=== PATIENT | female | born 1960 | race Caucasian/White ===

== ENCOUNTER 2016-10-10 09:42 | Inpatient (IN) | payer OTHER ==
[~2016-10-10] VITALS: Ht 162.6 cm; Wt 70.3 kg
[2016-10-10] VITALS (32 sets, daily range): BP systolic 71–131; BP diastolic 46–78; PULSE 58–79; RESP 10–22; Ht 162.6 cm; Wt 70.3 kg
[~2016-10-10 09:42] MED LIST: CEFAZOLIN 2 GM/50 ML (PMX) 50 ML IVPB ONE; D5-NS + KCL 20 MEQ 1,000 ML IV SCH; METHYLENE BLUE 1% 10 ML INJ ONE; SEVOFLURANE 15 MIN ONE; THROMBIN 5000 UNIT VIAL ONE; VASOPRESSIN 20 UNITS INJ ONE; metroNIDAZOLE 500 MG/NS (PMX) 100 ML IVPB ONE
[2016-10-10] MEDS ORDERED: ATEN-51 PO (10:17)
[2016-10-10] MEDS ORDERED: HYDR12.58 PO (10:17)
[2016-10-10] MEDS ORDERED: HYDR-906 PO (10:18)
[2016-10-10] MEDS ORDERED: OMEP20CA16 PO (10:18)
[2016-10-10] MEDS ORDERED: ONDANSETRON 4 MG INJ ONE (10:52)
[2016-10-10] MEDS ORDERED: SUCCINYLCHOLINE CHLORIDE 100 MG/5 ML SYG IV ONE (10:52)
[2016-10-10] MEDS ORDERED: FENTAnyl 50 MCG/ML VIAL ONE (10:52)
[2016-10-10] MEDS ORDERED: PROPOFOL 20 ML ONE (10:52)
[2016-10-10] MEDS ORDERED: ROCURONIUM 50 MG INJ ONE (10:52)
[2016-10-10] MEDS ORDERED: METOCLOPRAMIDE 10 MG INJ ONE (10:53)
[2016-10-10] MEDS ORDERED: MIDAZOLAM 1 MG/ML 2 ML INJ ONE (10:55)
[2016-10-10] MEDS ORDERED: LIDOCAINE 2%/EPI 30 ML INJ ONE (10:55)
[2016-10-10] MEDS ORDERED: CEFAZOLIN 1 GM INJ ONE (11:03)
[2016-10-10] MEDS ORDERED: morphine SULFATE/PF (10 MG/10 ML) INJ ONE (11:37)
[2016-10-10] MEDS ORDERED: MEPERIDINE 25 MG INJ IV PRN (13:00)
[2016-10-10] MEDS ORDERED: FENTAnyl 50 MCG/ML VIAL IV PRN ×2 (13:00)
[2016-10-10] MEDS ORDERED: HYDROmorphONE (0.2 MG/ML) 10ML SYG IV PRN ×2 (13:00)
[2016-10-10] MEDS ORDERED: ONDANSETRON 4 MG INJ IV PRN ×2 (13:00→15:30)
[2016-10-10] MEDS ORDERED: NALOXONE (0.4 MG/ML) INJ IV PRN (15:30)
[2016-10-10] MEDS ORDERED: DIPHENHYDRAMINE 50 MG INJ IV PRN (15:30)
[2016-10-10] MEDS ORDERED: HYDROmorphONE 1 MG/ML SYG IV PRN ×2 (15:30)
[2016-10-10] MEDS ORDERED: ATROPINE 1 MG/10 ML SYRINGE ONE (15:44)
[2016-10-10] MEDS ORDERED: NEOSTIGMINE 3 MG/3 ML SYRINGE ONE (15:44)
[2016-10-10] MEDS ORDERED: EPHEDrine SULFATE 50 MG/5 ML SYG ONE (16:15)
[2016-10-10] MEDS ORDERED: KETOROLAC 15 MG INJ IV STA (16:31)
[2016-10-10] MEDS ORDERED: KETOROLAC 15 MG INJ ONE (16:35)
[2016-10-10] MEDS: HYDROmorphONE (0.2 MG/ML) 10ML SYG IV PRN ×2 (16:46→17:18)
[2016-10-10] MEDS: D5-LR + KCL 20 MEQ 1,000 ML IV SCH ×2 (17:39→23:24)
[2016-10-10] MEDS: Metronidazole 500 MG in NS 100 ML IVPB SCH (17:39)
[2016-10-10 17:58] LABS: ADD SCAN DIFF NO
[2016-10-10 18:00] LABS: ABNORMAL IP MESSAGE 1; HEMOGLOBIN 9.3 g/dl (12.0-16.0); MEAN CORPUSCULAR HEMOGLOBIN 28.5 pg (29.0-33.0); MEAN PLATELET VOLUME 9.3 fl (7.4-10.4); PLATELET COUNT 338 10^3/UL (140-415); RED BLOOD COUNT 3.26 10^6/ul (4.20-5.40); WHITE BLOOD COUNT 12.3 10^3/ul (4.8-10.8)
[2016-10-10 18:12] LABS: INR 1.26; PROTIME 15.9 Sec (12.2-14.2); PT RATIO 1.2
[2016-10-10] MEDS: CEFAZOLIN 1 GM/50 ML (PMX) 50 ML IVPB SCH (18:12)
[2016-10-10 18:13] LABS: PARTIAL THROMBOPLASTIN TIME 27.9 Sec (25.0-35.0)
[2016-10-10 18:28] LABS: CREATININE 0.62 mg/dl (0.44-1.00); POTASSIUM 3.3 mmol/L (3.5-5.1)
[2016-10-10 18:29] LABS: CALCIUM 6.8 mg/dl (8.4-10.2)
[2016-10-10 20:09] LABS: LYMPHOCYTES # 0.6 10^3/ul (0.8-2.9); MONOCYTE # 0.7 10^3/ul (0.3-0.9); NEUTROPHIL # 9.8 10^3/ul (1.6-7.5)
[2016-10-10 20:10] LABS: ANISOCYTOSIS OCCASIONAL; PLATELET ESTIMATE PLT APPEAR ADEQUATE
--- NOTE | 2016-10-10 21:33 | HP ---
DATE OF ADMISSION: 10/10/2016 CHIEF COMPLAINT AND HISTORY OF PRESENT ILLNESS: The patient is a 56-year-old female with recent pro gnosis of endometrial cancer on 09/17/2016 by endometrial biopsy. The patient was diagnosed with st age IV endometrial cancer as an outpatient and underwent low rectal anastomosis, total hysterectomy, bilateral ____. Details of operative notes are currently not available. The patient postoperative ly did have a drop in her blood pressure which responded to IV fluid. Last blood pressure is 96. T he patient denies any dizziness or chest pain and is breathing comfortably. There is no orthopnea. The patient does not have any cough or chest congestion. The patient is being admitted for further care. REVIEW OF SYSTEMS: Rather limited due to patient's immediate postop state. PAST SURGICAL HISTORY: The patient is status post cholecystectomy and also history of biopsy of lef t breast, details not available. PAST MEDICAL HISTORY: Also positive for gastritis. FAMILY HISTORY: Mother has hypertension, dyslipidemia and diabetes. Father due to heart d isease, details not available, and father also had CVA. SOCIAL HISTORY: No smoking, no alcohol. MEDICATIONS PRIOR TO ADMISSION: 1. Atenolol. 2. Omeprazole. 3. Hydrochlorothiazide. 4. Lipitor. ALLERGIES: NONE. PHYSICAL EXAMINATION: GENERAL: The patient is conscious, awake, alert. VITAL SIGNS: Systolic blood pressure 96, temperature 98.6, pulse 62, respirations 18, O2 saturation 99%. HEENT: No eye discharge, redness. Extraocular movement intact. Oropharynx clear. NECK: Supple. No mass, no lymph node, no thyromegaly. CHEST: Fairly clear. CARDIOVASCULAR: S1, S2 normal. No murmur. ABDOMEN: The patient is status post surgery. Abdominal examination was deferred. EXTREMITIES: No leg edema. Pedal pulses palpable. SKIN: Without acute rash. NEUROLOGIC: The patient is awake, alert and follows simple commands. LABORATORY DATA: WBC 12.3, hemoglobin 9.3, platelets 338. Sodium 137, potassium 3.3, BUN 9, creati nine 0.6, glucose 155, calcium 6.8. EKG done as an outpatient revealed normal sinus rhythm. Labs done as an outpatient revealed WBC 10.4, hemoglobin 13.2, platelets 334. Calcium as an outpati ent was 9.4, albumin 4.4. CA-125 was interestingly 125. IMPRESSION AND PLAN: 1. Stage IV endometrial cancer, status post surgery. Details of operative notes are pending. 2. Hypertension. Will hold off antihypertensive for now since the patient's blood pressure is yang inal. 3. Dyslipidemia. The patient is n.p.o. Will hold off on statins. 4. Gastritis. Will give IV Protonix instead of Prilosec, which she had been taking prior to admiss ion. The patient's labs will be monitored closely. The patient is getting potassium replacement intraven ously. Plan of care discussed with the recovery room nurse. Dictated By: ARLENE PINTO/NTS Conf#: [id number] DID#: [id number]
[2016-10-10] MEDS: HYDROmorphONE 1 MG/ML SYG IV PRN (21:43)
[2016-10-11] VITALS (17 sets, daily range): BP systolic 91–117; BP diastolic 55–67; PULSE 60–96; RESP 11–21
[2016-10-11] MEDS: Metronidazole 500 MG in NS 100 ML IVPB SCH ×3 (01:00→17:31)
[2016-10-11] MEDS: CEFAZOLIN 1 GM/50 ML (PMX) 50 ML IVPB SCH ×3 (02:00→17:31)
[2016-10-11 05:58] LABS: ADD SCAN DIFF NO
[2016-10-11 06:01] LABS: ABNORMAL IP MESSAGE 1; HEMATOCRIT 28.7 % (37.0-47.0); HEMOGLOBIN 8.6 g/dl (12.0-16.0); MEAN CORPUSCULAR HEMOGLOBIN 28.2 pg (29.0-33.0); MEAN CORPUSCULAR VOLUME 94.1 fl (82.0-101.0); MEAN PLATELET VOLUME 9.4 fl (7.4-10.4); PLATELET COUNT 326 10^3/UL (140-415); RED BLOOD COUNT 3.05 10^6/ul (4.20-5.40); RED CELL DISTRIBUTION WIDTH 12.3 % (11.5-14.5); WHITE BLOOD COUNT 12.6 10^3/ul (4.8-10.8)
[2016-10-11] MEDS: HYDROmorphONE 1 MG/ML SYG IV PRN ×2 (06:03→23:24)
[2016-10-11] MEDS: PANTOPRAZOLE 40 MG INJ IV SCH (06:03)
[2016-10-11 06:07] LABS: INR 1.18; PROTIME 15.1 Sec (12.2-14.2); PT RATIO 1.2
[2016-10-11 06:08] LABS: PARTIAL THROMBOPLASTIN TIME 30.9 Sec (25.0-35.0)
[2016-10-11 06:16] LABS: ALBUMIN 2.1 g/dl (3.3-4.9); ALBUMIN/GLOBULIN RATIO 0.95; CREATININE 0.64 mg/dl (0.44-1.00); TOTAL PROTEIN 4.3 g/dl (6.1-8.1)
[2016-10-11] MEDS: D5-LR + KCL 20 MEQ 1,000 ML IV SCH ×3 (06:37→19:14)
[2016-10-11 07:08] LABS: POTASSIUM 4.4 mmol/L (3.5-5.1)
[2016-10-11] MEDS ORDERED: DIMETHICONE STICK TOP PRN (09:30)
[2016-10-11 09:55] LABS: LYMPHOCYTES # 0.9 10^3/ul (0.8-2.9); MONOCYTE # 0.3 10^3/ul (0.3-0.9); NEUTROPHIL # 10.7 10^3/ul (1.6-7.5)
--- NOTE | 2016-10-11 11:12 | PN ---
Date/Time of Note Date/Time of Note DATE: 10/11/16 TIME: 11:07 Assessment/Plan VTE Prophylaxis VTE Prophylaxis Intervention: other Lines/Catheters IV Catheter Type (from [facility], [place]): Peripheral IV Urinary Cath still in place: Yes Reason Cath still needed: urinary retention Assessment/Plan Assessment/Plan 1. Stage IV endometrial cancer, status post surgery. 2. Hypertension. Will hold off antihypertensive for now since the patient's blood pressure is marginal. 3. Dyslipidemia. The patient is n.p.o. Will hold off on statins. 4. Gastritis. Will give IV Protonix instead of Prilosec, which she had been taking prior to admission. The patient's labs will be monitored closely. The patient is getting potassium replacement intravenously. Plan of care discussed with the recovery room nurse. Subjective 24 Hr Interval Summary Free Text/Dictation resting in bed, nad, afebrile, dw staff/ Constitutional: improved, requiring IVF Eyes: no complaints ENT: no complaints Respiratory: no complaints Cardiovascular: no complaints Gastrointestinal: pain (incsional site) Genitourinary: no complaints Musculoskeletal: no complaints Skin: no complaints Neurologic: no complaints Exam/Review of Systems Vital Signs Vitals Vital Signs Date Time Temp Pulse Resp B/P Pulse Ox O2 Delivery O2 Flow Rate FiO2 10/11/16 11:00 78 20 104/63 100 Nasal Cannula 2.0 10/11/16 08:00 98.3 Intake and Output 10/10/16 10/10/16 10/11/16 15:00 23:00 07:00 Intake Total 4000 ml 1200 ml Output Total 1780 ml 820 ml Balance 2220 ml 380 ml Exam Constitutional: alert, oriented, well developed Psych: nl mood/affect Head: atraumatic Eyes: EOMI, PERRL, nl sclera ENMT: nl external ears & nose Neck: non-tender Respiratory: clear to auscultation Cardiovascular: nl pulses Gastrointestinal: other (Mid abdomen dressing- old blood staoned noted- none new. Bandages x2 noted on RLA /LLA- all dressings are dry and intact.), soft, tender Musculoskeletal: nl extremities to inspection Extremities: normal pulses Neurological: nl mental status, nl speech Skin: other Results Result Diagram: 10/11/16 0528 10/11/16 0528 Results 24 hrs Laboratory Tests Test 10/10/16 17:50 10/11/16 05:28 White Blood Count 12.3 H 12.6 H Red Blood Count 3.26 L 3.05 L Hemoglobin 9.3 L 8.6 L Hematocrit 30.0 L 28.7 L Mean Corpuscular Volume 92.0 94.1 Mean Corpuscular Hemoglobin 28.5 L 28.2 L Mean Corpuscular Hemoglobin Concent 31.0 L 30.0 L Red Cell Distribution Width 12.0 12.3 Platelet Count 338 326 Mean Platelet Volume 9.3 9.4 Neutrophils % 80.0 H 85.0 H Band Neutrophils % 9.0 H 6.0 H Lymphocytes % 5.0 L 7.0 L Monocytes % 6.0 2.0 Neutrophils # 9.8 H 10.7 H Lymphocytes # 0.6 L 0.9 Monocytes # 0.7 0.3 Platelet Estimate PLT APPEAR ADEQUATE Anisocytosis OCCASIONAL Prothrombin Time 15.9 H 15.1 H Prothrombin Time Ratio 1.2 1.2 INR International Normalized Ratio 1.26 1.18 Activated Partial Thromboplast Time 27.9 30.9 Sodium Level 137 139 Potassium Level 3.3 L 4.4 Chloride Level 110 109 Carbon Dioxide Level 24 27 Anion Gap 6 L 7 L Blood Urea Nitrogen 9 7 Creatinine 0.62 0.64 Glucose Level 155 214 Calcium Level 6.8 L 7.0 L Eosinophils % Eosinophils # Total Bilirubin 0.0 L Direct Bilirubin 0.00 Indirect Bilirubin 0.0 Aspartate Amino Transf (AST/SGOT) 28 Alanine Aminotransferase (ALT/SGPT) 28 Alkaline Phosphatase 49 Total Protein 4.3 L Albumin 2.1 L Globulin 2.20 Albumin/Globulin Ratio 0.95 Medications Medications Current Medications Potassium Cl/ Dextrose/Lact Ringer's (D5-Lr + KCl 20 Meq) 1,000 ml @ 150 mls/ hr Q6H40M IV Last administered on 10/11/16 06:37; Admin Dose 150 MLS/HR; Start 10/10/16 at 17:00 Hydromorphone HCl 1 mg 1 mg Q1H PRN IV PAIN Last administered on 10/11/16 06: 03; Admin Dose 1 MG; Start 10/10/16 at 17:00 Metronidazole 100 ml @ 100 mls/hr Q8H IVPB Last administered on 10/11/16 09: 24; Admin Dose 100 MLS/HR; Start 4/12/17 at 17:00; Stop 10/12/16 at 09:59 Cefazolin Sodium (Ancef 1 Gm/50 ml (Pmx)) 50 ml @ 100 mls/hr Q8H IVPB Last administered on 10/11/16 10:45; Admin Dose 100 MLS/HR; Start 10/10/16 at 18:00 ; Stop 10/12/16 at 10:29 Pantoprazole (Protonix Iv) 40 mg DAILY@06 IV Last administered on 10/11/16 06: 03; Admin Dose 40 MG; Start 10/11/16 at 06:00 Dimethicone (Blistex Lip [place]) 1 applic Q2H PRN TOP CHAPPED LIPS; Start at 09:30 LATRICIA GABRIEL Oct 11, 2016 11:12
--- NOTE | 2016-10-11 11:19 | PN ---
Date/Time of Note Date/Time of Note DATE: 10/11/16 TIME: 11:14 Assessment/Plan VTE Prophylaxis VTE Prophylaxis Intervention: SCD's Lines/Catheters IV Catheter Type (from [facility]): Peripheral IV Urinary Cath still in place: Yes Assessment/Plan Chief Complaint/Hosp Course stage IV endometrial cancer Problems: Assessment/Plan A- doing well P- explained surgery and findings Transfer to 4W OK with me if OK with IM Transfusion essential due to high risk low anastomosis Subjective 24 Hr Interval Summary Free Text/Dictation S- comfortable. not OOB O- resp- clear cvs-nsr abd- clean, NT ext- nt no edema A- doing well P- explained surgery and findings Transfer to 4W OK with me if OK with IM Transfusion essential due to high risk low anastomosis Exam/Review of Systems Vital Signs Vitals Vital Signs Date Time Temp Pulse Resp B/P Pulse Ox O2 Delivery O2 Flow Rate FiO2 10/11/16 11:00 78 20 104/63 100 Nasal Cannula 2.0 10/11/16 08:00 98.3 Intake and Output 10/10/16 10/10/16 10/11/16 15:00 23:00 07:00 Intake Total 4000 ml 1200 ml Output Total 1780 ml 820 ml Balance 2220 ml 380 ml Results Result Diagram: 10/11/16 0528 10/11/16 0528 Results 24 hrs Laboratory Tests Test 10/10/16 17:50 10/11/16 05:28 White Blood Count 12.3 H 12.6 H Red Blood Count 3.26 L 3.05 L Hemoglobin 9.3 L 8.6 L Hematocrit 30.0 L 28.7 L Mean Corpuscular Volume 92.0 94.1 Mean Corpuscular Hemoglobin 28.5 L 28.2 L Mean Corpuscular Hemoglobin Concent 31.0 L 30.0 L Red Cell Distribution Width 12.0 12.3 Platelet Count 338 326 Mean Platelet Volume 9.3 9.4 Neutrophils % 80.0 H 85.0 H Band Neutrophils % 9.0 H 6.0 H Lymphocytes % 5.0 L 7.0 L Monocytes % 6.0 2.0 Neutrophils # 9.8 H 10.7 H Lymphocytes # 0.6 L 0.9 Monocytes # 0.7 0.3 Platelet Estimate PLT APPEAR ADEQUATE Anisocytosis OCCASIONAL Prothrombin Time 15.9 H 15.1 H Prothrombin Time Ratio 1.2 1.2 INR International Normalized Ratio 1.26 1.18 Activated Partial Thromboplast Time 27.9 30.9 Sodium Level 137 139 Potassium Level 3.3 L 4.4 Chloride Level 110 109 Carbon Dioxide Level 24 27 Anion Gap 6 L 7 L Blood Urea Nitrogen 9 7 Creatinine 0.62 0.64 Glucose Level 155 214 Calcium Level 6.8 L 7.0 L Eosinophils % Eosinophils # Total Bilirubin 0.0 L Direct Bilirubin 0.00 Indirect Bilirubin 0.0 Aspartate Amino Transf (AST/SGOT) 28 Alanine Aminotransferase (ALT/SGPT) 28 Alkaline Phosphatase 49 Total Protein 4.3 L Albumin 2.1 L Globulin 2.20 Albumin/Globulin Ratio 0.95 Medications Medications Current Medications Potassium Cl/ Dextrose/Lact Ringer's (D5-Lr + KCl 20 Meq) 1,000 ml @ 150 mls/ hr Q6H40M IV Last administered on 10/11/16 06:37; Admin Dose 150 MLS/HR; Start 10/10/16 at 17:00 Hydromorphone HCl 1 mg 1 mg Q1H PRN IV PAIN Last administered on 10/11/16 06: 03; Admin Dose 1 MG; Start 10/10/16 at 17:00 Metronidazole 100 ml @ 100 mls/hr Q8H IVPB Last administered on 10/11/16 09: 24; Admin Dose 100 MLS/HR; Start 10/10/16 at 17:00; Stop 10/12/16 at 09:59 Cefazolin Sodium (Ancef 1 Gm/50 ml (Pmx)) 50 ml @ 100 mls/hr Q8H IVPB Last administered on 10/11/16 10:45; Admin Dose 100 MLS/HR; Start 10/10/16 at 18:00 ; Stop 10/12/16 at 10:29 Pantoprazole (Protonix Iv) 40 mg DAILY@06 IV Last administered on 10/11/16 06: 03; Admin Dose 40 MG; Start 10/11/16 at 06:00 Dimethicone (Blistex Lip [place]) 1 applic Q2H PRN TOP CHAPPED LIPS; Start at 09:30 NUPUR RODRÍGUEZ MD Oct 11, 2016 11:19
[2016-10-11] MEDS ORDERED: ACETAMINOPHEN 650MG/20.3ML CUP NGT ONE (13:30)
[2016-10-11] MEDS ORDERED: DIPHENHYDRAMINE 50 MG INJ IV ONE (13:30)
[2016-10-11] MEDS ORDERED: FUROSEMIDE 20 MG INJ IV ONE (13:30)
[2016-10-11 17:00] LABS: ADD UMIC YES; URINE COLOR LT. YELLOW (YELLOW)
[2016-10-11 17:01] LABS: URINE BILIRUBIN (Dip) NEGATIVE (NEGATIVE); URINE BLOOD (Dip) TRACE (NEGATIVE); URINE GLUCOSE (Dip) NEGATIVE (NEGATIVE); URINE KETONES (Dip) NEGATIVE (NEGATIVE); URINE LEUKOCYTE ESTERASE (Dip) TRACE (NEGATIVE); URINE NITRITE (Dip) NEGATIVE (NEGATIVE); URINE TOTAL PROTEIN (Dip) NEGATIVE (NEGATIVE); URINE UROBILINOGEN (Dip) 0.2 E.U./dL (0.1-1.0)
[2016-10-11 17:05] LABS: MUCUS,URINE OCCASIONAL; URINE RBCS 0-2 /HPF (0)
--- NOTE | 2016-10-11 20:49 | OPR ---
Date/Time of Note Date/Time of Note DATE: 10/11/16 TIME: 20:48 Operative Report Free Text/Dictation OPERATIVE REPORT [facility] Name: Nicole Gan Medical Date: 10/10/16 Preoperative Diagnosis: Endometrial cancer grade 3 Postoperative Diagnosis: 1- Stage IV endometrial cancer 2- Ureteral stricture 3- Impending gastric outlet obstruction 4- Impending large bowel obstruction Procedures: 1- Modified posterior exenteration with low anastomosis 2- Pelvic and aortic lymph node dissection 3- Bilateral ureteral dissection with repositioning 4- Omentectomy with cytoreduction 5- Vascular repaired without incident using 6- Laparoscopy Surgeon: Dr. Bueno Route Manager: Sveta Anesthesia: General Indications for surgery: The patient is a 56- year old female with endometrial cancer for whom a laparoscopic procedure was initially intended but the imaging studies received indicated multi-site possible metastatic disease. Hence a laparoscopy was performed to confirm the extent of metastatic disease and primary advanced stage endometrial cancer on the basis of physical findings with elevated markers , radiographic findings, and symptoms of whom a cytoreduction was undertaken Name: Nicole Jackson after addressing all options with risks and benefits. Findings and Summary After laparoscopy and confirmation of extensive metastatic disease that was operable the patient was opened and with exploration we removed 400 cc ascites and noted upper abdominal disease involving the omentum, diaphragm, and bowel with metastatic implants which were addressed and the pelvic disease was resected en-bloc. The retroperitoneal nodes were grossly enlarged and friable. At the completion of the procedure the patient was cytoreduced to a 5 mm threshold due to confluent vascular disease and duodenal disease. Procedure: After being prepped and draped in the usual manner a 5-millimeter trocar was placed cephlad to the umbilicus and the abdomen insufflated with CO2, after which the abdomen was explored and omental metastatic disease was noted with minimal diaphragm nodules. Hence, a midline skin incision was made of appropriate length. The electrocautery was then used to dissect thru the adipose tissue to the level of the fascia. The fascia was incised sharply and the peritoneum identified. At this time the peritoneum was elevated and incised with a Metzenbaum scissors. Upon entering the peritoneal cavity 300 cc of ascetic fluid was removed. We then searched the abdominal and pelvic contents and found that the left upper quadrant metastatic disease involved the greater omentum with confluent disease involving part of the the gastrocolic ligament. (rank 2). The right upper quadrant diseases involved approximately 1 % % of the diaphragm surface and did not involve the undersuface (rank #1). Exploration of the central abdomen revealed approximately minimal implants involving the mesentery, intestinal, and gutter regions with dimensions of 1 mm to 2 mm (rank # 1 ). The pelvic disease consisted of involvement of both adnexia with the cul-de-sac involved with confluent metastatic disease and a separate colon site of adjacent metastatic disease (rank 2). The largest metastatic disease was 6 cm in dimension and involved the omentum adjacent Name: [facility] to the transverse colon. We then placed an aortic Bellfower retractor. At this time, the omentum was dissected from the transverse colon with sharp dissection and electrocautery when possible. Vessels to large to be managed by electrocautery or too close to the colon were addressed with the Ligasure or sutured with 3-0 silk suture if needed. This procedure was carried out throughout the length of the omentum and transverse colon. Larger vascular pedicles were divided using the Ligasure if the pedicle was vascular but somewhat skeletonized. Oozing areas in the cautery line with either devise were either recauterized or sutured with 3-0 silk. We then entered the lesser sac bluntly and the gastro-colic ligament from the greater curvature of the stomach with electrocautery and 3-0 silk suture used as needed. Any small disease in the lesser sac was ablated with an argon beam gas collection system operator. The Thunderbeat forceps was used for small pedicles and Ligasure for larger pedicles as the gastrocolic ligament was from the stomach. Oozing areas in any cautery lines were either cauterized or sutured with 3-0 silk depending on the proximity to adjacent gastric serosa. The specimen was removed en-bloc, after which the transverse colon was thoroughly inspected and any sero- muscular defects encountered were repaired with interrupted 3-0 Silk suture. Subsequently the aforementioned implants on the diaphragm and the adjacent perirenal area were ablated with the argon beam gas collection system operator. At this time, the entire small and large bowel was thoroughly inspected and palpated. There were approximately 12 implants on the mesentery and serosal surfaces of the small intestine and colon, excluding cul-de-sac disease. The size of the implants ranged from 1 to 2 millimeters other than the confluent disease in the cul-de- sac and a solitary 4-5 cm sigmoid colon site of metastatic disease. All mesenteric implants were ablated with an argon beam gas collection system operator using a setting of 150 pascal. Serosal implants were excised sharply and any defects were closed with multiple sutures of 3-0 silk. All implants were ablated or excised. At this time, the pelvic disease was addressed. Because of the extensive disease involving the Name: Nicole Gan [facility] cul-de-sac as well as the sidewall pelvic peritoneum and rectosigmoid colon and adnexial involvement with the adnexia densely adherent to the sidewalls, an en- bloc modified posterior pelvic exenteration was needed to resect the disease. Initially the right round ligament was transected with a Ligasure uneventfully. The retroperitoneal area was opened and the ureter was identified. Due to the extent of pelvic disease with inflammation and reaction as well as tumor bulk centrally, the ureter was difficult to initially identify and were strictured distally with some element of ureteral distortion and distal stricture. Therefore it was essential to thoroughly dissect and reposition the ureter as separate procedure. This was accomplished with a right angle clamp and a peanut throughout the length of the ureter. The ureter was dissected throughout the length and lateralized with a peanut for visualization and exposure. After repositioning the ureter laterally away from the adherent peritoneum that was densely involved with metastatic disease, the infundibulopelvic ligament were first cauterized with the Ligasure and then clamped, cut and free-tied with 0- Vicryl suture proximally. Subsequently, on the contralateral side, where the more extensive confluent lesion was and as we now had better exposure, left round ligament was transected with a Ligasure uneventfully. The retroperitoneal area was opened and the ureter was identified. Due to the extent of pelvic disease with inflammation and reaction as well as tumor bulk centrally and due to the adjacent process, the ureter was difficult to initially identify and were strictured distally with some element of ureteral distortion with stricture. Therefore it was essential to thoroughly dissect and reposition the ureter as separate procedure. This was accomplished with a right angle clamp and a peanut throughout the length of the ureter. The ureter was dissected throughout the length and lateralized with a peanut for visualization and exposure. After repositioning the ureter laterally away from the adherent peritoneum that was densely involved with metastatic disease, the infundibulopelvic ligament were first cauterized with the Ligasure and then clamped, cut and free-tied with 0- Vicryl suture proximally. Name: Nicole Jackson Subsequently, the colon, proximal to the aforementioned macroscopic disease was dissected away from the mesentery with a tonsil clamp and transected with the 75 -mm PARVEEN. The presacral area was then developed digitally and the specimen mobilized. With both ureters identified and traced out the colonic mesentery was divided using a Ligasure progressively. Any bleeding areas were addressed with 3-0 silk suture. The bladder flap was then developed with a Bovie and any implants on the anterior bladder peritoneum were ablated with an ABC gas collection system operator. At this time a large right angle clamp was used to dissect the ureters bilaterally, away from the uterine vessels in a manner used during a type-2 hysterectomy. The uterine arteries were clipped and cut, along with the veins. The ureters were then tunneled through the parametria with a large right angle clamp, and the parametrial pedicles were transected with a Ligasure. The bladder pillars were then dissected after which the ureters were confirmed to be undamaged. Hence, remaining parametrial tissue was clamped, cut , and ligated with 0- Vicryl suture and the vaginal angles were clamped with Lidia clamps. The uterus was from the vagina and the vagina closed with figure of eight sutures using 0-vicryl. Subsequently, the recto- vaginal septum was developed digitally and the perirectal tissue was dissected from the distal colon and proximal rectum. Pedicles were addressed with the endo-PARVEEN if adjacent to serosa or if remote and presacral the Ligasure was used , while smaller ones were clipped and cut. The rectum was stapled with a Contour and the reproductive organs, pelvic peritoneum, and segment of recto- sigmoid removed en-bloc. After confirming hemostasis we addressed the lymph node dissection since we had excellent exposure. Initially grossly enlarged and friable lymph node tissue adjacent to the right external iliac artery and vein, hypogastric artery and vein, as well as obturator fossa were removed with sharp and blunt dissection, using the Omni for hemostasis and lymphostasis and of note grossly positive sonny disease adjacent to the vasculature was noted and removed. The dissection was continued to include sonny tissue adjacent to the common iliac [facility] vessels. The retractors were adjusted and grossly positive sonny tissue adjacent to the vena cava to a level near the renal vessels, as well as aorto- caval nodes were removed using identical technique. 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 Additionally, confluent metastatic disease was note along the vasculature that was ablated with the argon beam gas collection system operator at low wattage and the disease continued to the duodenum that had minimal sero-muscular invasion that was very minimally ablated with the argon beam gas collection system operator but minimal confluent disease could not be addressed to avoid risk of duodenal issue. At this time we adjusted the retractors and grossly positive and necrotic lymph node tissue adjacent to the left external iliac artery and vein, hypogastric artery and vein, as well as obturator fossa were removed with sharp and blunt dissection, using the Gyrus Omni for hemostasis and lymphostasis. The dissection was continued to include sonny tissue adjacent to the common iliac vessels. Subsequently, the retractors were adjusted and any equivalent grossly positive sonny tissue adjacent to the aorta to a level of the renal vessels were dissected using sharp and blunt dissection with the Omni for hemostasis and lymphostasis with obviously grossly positive nodes removed and fine confluent disease ablated with the argon beam gas collection system operator at low wattage. After confirming hemostasis the proximal large bowel was mobilized and a purse string maker placed. After using the devise the detachable part of an EEA (29 mm) devise was sutured in place, the rectal segment inserted appropriately, and the anastamosis completed uneventfully. The integrity was confirmed by inserting air in the rectum and noting an absence of leakage, after which the anastamosis was supported with Interrupted 3-0 silk suture. At this time, after all packing was removed, the abdomen thoroughly irrigated, hemostasis confirmed, and a Pelvic Tod drain was placed. A figure of eight suture was placed at the caudal apex of the incision with 1- Vicryl suture and used for exposure by elevating with a Pean clamp. Continuous 1 Vicryl suture was used from the rostral apex and run to the Name: [facility] supra-pubic area. The final suture was tied appropriately, after which the figure of eight was tied. The subcutaneous tissue was irrigated and the skin was closed with a deep layer of 3-0 Vicryl suture and skin clips. The sponge, needle, and instrument were correct two times. The estimated blood loss was 600 ml The patient tolerated the procedure well and left the OR in good condition. It should be noted that all visible disease was resected or ablated, but residual disease of <5 mm was left due to generalized confluent disease on vasculature throughout the retroperitoneum and on the duodenum that could not be entirely addressed Nupur Bueno M.D. NUPUR BUENO MD Oct 11, 2016 20:49
[2016-10-11 22:30] LABS: PRETRANSFUSION BILIRUBIN 0.2 mg/dl
[2016-10-12] MEDS: Metronidazole 500 MG in NS 100 ML IVPB SCH ×2 (00:18→08:48)
[2016-10-12] MEDS: CEFAZOLIN 1 GM/50 ML (PMX) 50 ML IVPB SCH ×2 (01:26→10:35)
[2016-10-12] MEDS: HYDROmorphONE 1 MG/ML SYG IV PRN ×4 (04:08→17:30)
[2016-10-12] MEDS: PANTOPRAZOLE 40 MG INJ IV SCH (05:23)
[2016-10-12 07:57] VITALS: BP 126/73; RESP 18
[2016-10-12] MEDS: D5-LR + KCL 20 MEQ 1,000 ML IV SCH ×3 (08:03→21:41)
[2016-10-12 08:20] LABS: ADD SCAN DIFF NO
[2016-10-12 08:34] LABS: BASOPHILS % 0.1 % (0.0-2.0); HEMATOCRIT 24.7 % (37.0-47.0); HEMOGLOBIN 7.7 g/dl (12.0-16.0); LYMPHOCYTES # 0.9 10^3/ul (0.8-2.9); LYMPHOCYTES % 7.5 % (15.0-51.0); MEAN CORPUSCULAR HEMOGLOBIN 28.6 pg (29.0-33.0); MEAN CORPUSCULAR HGB CONC 31.2 g/dl (32.0-37.0); MEAN CORPUSCULAR VOLUME 91.8 fl (82.0-101.0); MEAN PLATELET VOLUME 9.4 fl (7.4-10.4); MONOCYTE # 0.9 10^3/ul (0.3-0.9); MONOCYTES % 7.3 % (0.0-11.0); NEUTROPHIL # 9.8 10^3/ul (1.6-7.5); NEUTROPHILS % 84.8 % (39.0-77.0); PLATELET COUNT 295 10^3/UL (140-415); RED BLOOD COUNT 2.69 10^6/ul (4.20-5.40); RED CELL DISTRIBUTION WIDTH 12.5 % (11.5-14.5); WHITE BLOOD COUNT 11.6 10^3/ul (4.8-10.8)
[2016-10-12 08:45] LABS: POTASSIUM 3.2 mmol/L (3.5-5.1)
[2016-10-12 08:48] LABS: CALCIUM 7.4 mg/dl (8.4-10.2); CREATININE 0.62 mg/dl (0.44-1.00)
[2016-10-12 16:00] VITALS: BP 118/66; PULSE 98; RESP 18
[2016-10-12] MEDS ORDERED: POTASSIUM CHLORIDE 20 MEQ in SOD CHLORIDE 0.9% 100 ML IVPB ONE (17:00)
--- NOTE | 2016-10-12 19:08 | CONS ---
Date/Time of Note Date/Time of Note DATE: 10/12/16 TIME: 19:05 Assessment/Plan Assessment/Plan Chief Complaint/Hosp Course The patient is a 56-year-old female with recent diagnosis of endometrial cancer on 09/17/2016 by endometrial biopsy. The patient was diagnosed with stage IV endometrial cancer. She underwent massive surgical procedure with CYNDI/ BSO and recto-sigmoid en-bloc with low anastomosis per Dr. Bueno on 10/11/16. She had extensive positive retroperitoneal lymph nodes removed but the confluence of disease makes her classified as millimeter residual disease. - Per Dr. Bueno, plan for carbo/taxol in about 8 days. - Continue post-op care. Will continue to follow. Problems: Consultation Date/Type/Reason Admit Date/Time Oct 10, 2016 at 09:46 Date of Consultation: Oct 12, 2016 Type of Consultation: Oncology Hx of Present Illness The patient is a 56-year-old female with recent diagnosis of endometrial cancer on 09/17/2016 by endometrial biopsy. The patient was diagnosed with stage IV endometrial cancer. She underwent massive surgical procedure with CYNDI/BSO and recto-sigmoid en-bloc with low anastomosis per Dr. Bueno. She had extensive positive retroperitoneal lymph nodes removed but the confluence of disease makes her classified as millimeter residual disease. Patient doing well post-operatively. She does not have any complaints. Eyes: no complaints ENT: no complaints Respiratory: no complaints Cardiovascular: no complaints Gastrointestinal: pain (incsional site) Genitourinary: no complaints Musculoskeletal: no complaints Skin: no complaints Neurologic: no complaints Psychological: nl mood/affect Past Medical History Hypertension, Dyslipidemia, gastritis Past Surgical History The patient is status post cholecystectomy and also history of biopsy of left breast, details not available. Family History Significant Family History: no pertinent family hx, other ( Mother has hypertension, dyslipidemia and diabetes. Father due to heart disease, details not available, and father also had CVA.) Social History Alcohol Use: none Smoking Status: Never smoker Exam/Review of Systems Vital Signs Vitals Vital Signs Date Time Temp Pulse Resp B/P Pulse Ox O2 Delivery O2 Flow Rate FiO2 10/12/16 16:00 98.8 98 18 118/66 96 Room Air 10/11/16 12:00 2.0 Intake and Output 10/11/16 10/11/16 10/12/16 15:00 23:00 07:00 Intake Total 675.0 ml 900 ml 1050 ml Output Total 350 ml 610 ml 760 ml Balance 325.0 ml 290 ml 290 ml Exam Constitutional: alert Head: other (NG tube in place) Neck: supple Respiratory: clear to auscultation Cardiovascular: other (tachycardic, regular rhythm) Gastrointestinal: other (dressings c/d/i), tender Results Result Diagram: 10/12/16 0730 10/12/16 0730 Results 24 hrs Laboratory Tests Test 10/12/16 07:30 White Blood Count 11.6 H Red Blood Count 2.69 L Hemoglobin 7.7 L Hematocrit 24.7 L Mean Corpuscular Volume 91.8 Mean Corpuscular Hemoglobin 28.6 L Mean Corpuscular Hemoglobin Concent 31.2 L Red Cell Distribution Width 12.5 Platelet Count 295 Mean Platelet Volume 9.4 Neutrophils % 84.8 H Lymphocytes % 7.5 L Monocytes % 7.3 Eosinophils % 0.0 Basophils % 0.1 Nucleated Red Blood Cells % 0.0 Neutrophils # 9.8 H Lymphocytes # 0.9 Monocytes # 0.9 Eosinophils # 0.0 Basophils # 0.0 Nucleated Red Blood Cells # 0.0 Sodium Level 142 Potassium Level 3.2 L Chloride Level 108 Carbon Dioxide Level 30 Anion Gap 7 L Blood Urea Nitrogen 6 L Creatinine 0.62 Glucose Level 135 # Calcium Level 7.4 L Medications Medications Current Medications Potassium Cl/ Dextrose/Lact Ringer's (D5-Lr + KCl 20 Meq) 1,000 ml @ 100 mls/ hr Q10H IV Last administered on 10/12/16 08:03; Admin Dose 100 MLS/HR; Start 10/10/16 at 17:00 Hydromorphone HCl (Dilaudid) 1 mg Q1H PRN IV PAIN Last administered on 17:30; Admin Dose 1 MG; Start 10/10/16 at 17:00 Pantoprazole (Protonix Iv) 40 mg DAILY@06 IV Last administered on 10/12/16 05: 23; Admin Dose 40 MG; Start 10/11/16 at 06:00 Dimethicone (Blistex Lip [place]) 1 applic Q2H PRN TOP CHAPPED LIPS; Start at 09:30 Diphenhydramine HCl (Benadryl) 25 mg Q6H PRN IV ITCHING; Start 10/11/16 at 16: 19 TOLINDA MD Oct 12, 2016 19:08
[2016-10-12 20:12] VITALS: BP 124/81; RESP 18
--- NOTE | 2016-10-12 22:38 | PN ---
Date/Time of Note Date/Time of Note DATE: 10/12/16 TIME: 22:37 Assessment/Plan VTE Prophylaxis VTE Prophylaxis Intervention: SCD's Lines/Catheters IV [facility] Peripheral IV Urinary Cath still in place: Yes Assessment/Plan Chief Complaint/Hosp Course stage IV endometrial cancer Problems: Assessment/Plan A- doing well P- explained surgery and findings again mobilize and await GI fct Subjective 24 Hr Interval Summary Free Text/Dictation S- comfortable. not OOB O- resp- clear cvs-nsr abd- clean, NT ext- nt no edema A- doing well P- explained surgery and findings again mobilize and await GI fct Exam/Review of Systems Vital Signs Vitals Vital Signs Date Time Temp Pulse Resp B/P Pulse Ox O2 Delivery O2 Flow Rate FiO2 10/12/16 20:12 98.0 118 18 124/81 94 10/12/16 16:00 Room Air 10/11/16 12:00 2.0 Intake and Output 10/11/16 10/11/16 10/12/16 14:59 22:59 06:59 Intake Total 750.0 ml 900 ml 1050 ml Output Total 350 ml 610 ml 760 ml Balance 400.0 ml 290 ml 290 ml Results Result Diagram: 10/12/16 0730 10/12/16 0730 Results 24 hrs Laboratory Tests Test 10/12/16 07:30 White Blood Count 11.6 H Red Blood Count 2.69 L Hemoglobin 7.7 L Hematocrit 24.7 L Mean Corpuscular Volume 91.8 Mean Corpuscular Hemoglobin 28.6 L Mean Corpuscular Hemoglobin Concent 31.2 L Red Cell Distribution Width 12.5 Platelet Count 295 Mean Platelet Volume 9.4 Neutrophils % 84.8 H Lymphocytes % 7.5 L Monocytes % 7.3 Eosinophils % 0.0 Basophils % 0.1 Nucleated Red Blood Cells % 0.0 Neutrophils # 9.8 H Lymphocytes # 0.9 Monocytes # 0.9 Eosinophils # 0.0 Basophils # 0.0 Nucleated Red Blood Cells # 0.0 Sodium Level 142 Potassium Level 3.2 L Chloride Level 108 Carbon Dioxide Level 30 Anion Gap 7 L Blood Urea Nitrogen 6 L Creatinine 0.62 Glucose Level 135 # Calcium Level 7.4 L Medications Medications Current Medications Potassium Cl/ Dextrose/Lact Ringer's (D5-Lr + KCl 20 Meq) 1,000 ml @ 100 mls/ hr Q10H IV Last administered on 10/12/16 21:41; Admin Dose 100 MLS/HR; Start 10/10/16 at 17:00 Hydromorphone HCl (Dilaudid) 1 mg Q1H PRN IV PAIN Last administered on 17:30; Admin Dose 1 MG; Start 10/10/16 at 17:00 Pantoprazole (Protonix Iv) 40 mg DAILY@06 IV Last administered on 10/12/16 05: 23; Admin Dose 40 MG; Start 10/11/16 at 06:00 Dimethicone (Blistex Lip [place]) 1 applic Q2H PRN TOP CHAPPED LIPS; Start at 09:30 Diphenhydramine HCl (Benadryl) 25 mg Q6H PRN IV ITCHING; Start 10/11/16 at 16: 19 NUPUR RODRÍGUEZ MD Oct 12, 2016 22:38
[2016-10-13] MEDS: HYDROmorphONE 1 MG/ML SYG IV PRN ×5 (00:16→23:32)
[2016-10-13 05:33] LABS: ADD SCAN DIFF NO
[2016-10-13 05:43] LABS: BASOPHILS % 0.2 % (0.0-2.0); EOSINOPHILS % 0.1 % (0.0-7.0); HEMATOCRIT 24.6 % (37.0-47.0); HEMOGLOBIN 7.8 g/dl (12.0-16.0); LYMPHOCYTES # 1.1 10^3/ul (0.8-2.9); LYMPHOCYTES % 9.3 % (15.0-51.0); MEAN CORPUSCULAR HEMOGLOBIN 29.2 pg (29.0-33.0); MEAN CORPUSCULAR HGB CONC 31.7 g/dl (32.0-37.0); MEAN CORPUSCULAR VOLUME 92.1 fl (82.0-101.0); MEAN PLATELET VOLUME 9.1 fl (7.4-10.4); MONOCYTE # 0.6 10^3/ul (0.3-0.9); NEUTROPHIL # 9.9 10^3/ul (1.6-7.5); PLATELET COUNT 321 10^3/UL (140-415); RED BLOOD COUNT 2.67 10^6/ul (4.20-5.40); RED CELL DISTRIBUTION WIDTH 12.4 % (11.5-14.5); WHITE BLOOD COUNT 11.7 10^3/ul (4.8-10.8)
[2016-10-13] MEDS: PANTOPRAZOLE 40 MG INJ IV SCH (05:46)
[2016-10-13] MEDS: D5-LR + KCL 20 MEQ 1,000 ML IV SCH ×3 (05:50→18:24)
[2016-10-13 06:22] LABS: POTASSIUM 3.8 mmol/L (3.5-5.1)
[2016-10-13 06:25] LABS: CREATININE 0.59 mg/dl (0.44-1.00)
[2016-10-13 06:26] LABS: CALCIUM 7.6 mg/dl (8.4-10.2)
[2016-10-13 07:00] VITALS: BP 128/79; RESP 18
--- NOTE | 2016-10-13 11:42 | PN ---
Date/Time of Note Date/Time of Note DATE: 10/13/16 TIME: 11:41 Assessment/Plan VTE Prophylaxis VTE Prophylaxis Intervention: other Lines/Catheters IV Catheter Type (from Nrs): Peripheral IV Urinary Cath still in place: Yes Reason Cath still needed: skin wounds contaminated by urine Assessment/Plan Chief Complaint/Hosp Course 1. Stage IV endometrial cancer, status post surgery. 2. Hypertension. Will hold off antihypertensive for now since the patient's blood pressure is marginal. 3. Dyslipidemia. The patient is n.p.o. Will hold off on statins. 4. Gastritis. Will give IV Protonix instead of Prilosec, which she had been taking prior to admission. Problems: Subjective 24 Hr Interval Summary Free Text/Dictation Patient has no complaints Exam/Review of Systems Vital Signs Vitals Vital Signs Date Time Temp Pulse Resp B/P Pulse Ox O2 Delivery O2 Flow Rate FiO2 10/13/16 07:00 97.8 102 18 128/79 95 10/12/16 16:00 Room Air 10/11/16 12:00 2.0 Intake and Output 10/12/16 10/12/16 10/13/16 15:00 23:00 07:00 Intake Total 250 ml 1110 ml 700 ml Output Total 1110 ml 1030 ml Balance 250 ml 0 ml -330 ml Exam Constitutional: well developed Head: atraumatic, normocephalic Neck: supple Respiratory: diminished breath sounds Cardiovascular: regular rate and rhythm Gastrointestinal: non-tender, soft Extremities: normal pulses Results Result Diagram: 10/13/16 0420 10/13/16 0420 Results 24 hrs Laboratory Tests Test 10/13/16 04:20 White Blood Count 11.7 H Red Blood Count 2.67 L Hemoglobin 7.8 L Hematocrit 24.6 L Mean Corpuscular Volume 92.1 Mean Corpuscular Hemoglobin 29.2 Mean Corpuscular Hemoglobin Concent 31.7 L Red Cell Distribution Width 12.4 Platelet Count 321 Mean Platelet Volume 9.1 Neutrophils % 85.0 H Lymphocytes % 9.3 L Monocytes % 5.0 Eosinophils % 0.1 Basophils % 0.2 Nucleated Red Blood Cells % 0.0 Neutrophils # 9.9 H Lymphocytes # 1.1 Monocytes # 0.6 Eosinophils # 0.0 Basophils # 0.0 Nucleated Red Blood Cells # 0.0 Sodium Level 142 Potassium Level 3.8 Chloride Level 106 Carbon Dioxide Level 31 Anion Gap 9 Blood Urea Nitrogen 5 L Creatinine 0.59 Glucose Level 131 Calcium Level 7.6 L Medications Medications Current Medications Potassium Cl/ Dextrose/Lact Ringer's (D5-Lr + KCl 20 Meq) 1,000 ml @ 100 mls/ hr Q10H IV Last administered on 10/13/16 08:50; Admin Dose 100 MLS/HR; Start 10/10/16 at 17:00 Hydromorphone HCl (Dilaudid) 1 mg Q1H PRN IV PAIN Last administered on 08:50; Admin Dose 1 MG; Start 10/10/16 at 17:00 Pantoprazole (Protonix Iv) 40 mg DAILY@06 IV Last administered on 10/13/16 05: 46; Admin Dose 40 MG; Start 10/11/16 at 06:00 Dimethicone (Blistex Lip [place]) 1 applic Q2H PRN TOP CHAPPED LIPS; Start at 09:30 Diphenhydramine HCl (Benadryl) 25 mg Q6H PRN IV ITCHING; Start 10/11/16 at 16: 19 MARCO XAVIER Oct 13, 2016 11:42
[2016-10-13 19:25] VITALS: BP_SYST 134; BP_DIAS 78; BP_DIAS 88; RESP 20
--- NOTE | 2016-10-13 19:49 | PN ---
Date/Time of Note Date/Time of Note DATE: 10/13/16 TIME: 19:48 Assessment/Plan VTE Prophylaxis VTE Prophylaxis Intervention: SCD's Lines/Catheters [facility]): Peripheral IV Urinary Cath still in place: Yes Assessment/Plan Chief Complaint/Hosp Course stage IV endometrial cancer Problems: Assessment/Plan A- doing well P- Transfuse due to high risk low anastamosis mobilize and await GI fct Subjective 24 Hr Interval Summary Free Text/Dictation S- comfortable. not OOB O- resp- clear cvs-nsr abd- clean, NT ext- nt no edema A- doing well P- Transfuse due to high risk low anastamosis mobilize and await GI fct Exam/Review of Systems Vital Signs Vitals Vital Signs Date Time Temp Pulse Resp B/P Pulse Ox O2 Delivery O2 Flow Rate FiO2 10/13/16 19:25 98.5 107 20 134/78 100 10/12/16 16:00 Room Air 10/11/16 12:00 2.0 Intake and Output 10/12/16 10/12/16 10/13/16 15:00 23:00 07:00 Intake Total 250 ml 1110 ml 700 ml Output Total 1110 ml 1030 ml Balance 250 ml 0 ml -330 ml Results Result Diagram: 10/13/16 0420 10/13/16 0420 Results 24 hrs Laboratory Tests Test 10/13/16 04:20 White Blood Count 11.7 H Red Blood Count 2.67 L Hemoglobin 7.8 L Hematocrit 24.6 L Mean Corpuscular Volume 92.1 Mean Corpuscular Hemoglobin 29.2 Mean Corpuscular Hemoglobin Concent 31.7 L Red Cell Distribution Width 12.4 Platelet Count 321 Mean Platelet Volume 9.1 Neutrophils % 85.0 H Lymphocytes % 9.3 L Monocytes % 5.0 Eosinophils % 0.1 Basophils % 0.2 Nucleated Red Blood Cells % 0.0 Neutrophils # 9.9 H Lymphocytes # 1.1 Monocytes # 0.6 Eosinophils # 0.0 Basophils # 0.0 Nucleated Red Blood Cells # 0.0 Sodium Level 142 Potassium Level 3.8 Chloride Level 106 Carbon Dioxide Level 31 Anion Gap 9 Blood Urea Nitrogen 5 L Creatinine 0.59 Glucose Level 131 Calcium Level 7.6 L Medications Medications Current Medications Potassium Cl/ Dextrose/Lact Ringer's (D5-Lr + KCl 20 Meq) 1,000 ml @ 100 mls/ hr Q10H IV Last administered on 10/13/16 18:24; Admin Dose 100 MLS/HR; Start 10/10/16 at 17:00 Hydromorphone HCl (Dilaudid) 1 mg Q1H PRN IV PAIN Last administered on 17:25; Admin Dose 1 MG; Start 10/10/16 at 17:00 Pantoprazole (Protonix Iv) 40 mg DAILY@06 IV Last administered on 10/13/16 05: 46; Admin Dose 40 MG; Start 10/11/16 at 06:00 Dimethicone (Blistex Lip [place]) 1 applic Q2H PRN TOP CHAPPED LIPS; Start at 09:30 Diphenhydramine HCl (Benadryl) 25 mg Q6H PRN IV ITCHING; Start 10/11/16 at 16: 19 NUPUR RODRÍGUEZ MD Oct 13, 2016 19:49
[2016-10-14] VITALS (8 sets, daily range): BP systolic 135–180; BP diastolic 75–93; PULSE 75–95; RESP 16–20
[2016-10-14] MEDS ORDERED: ACETAMINOPHEN 650MG/20.3ML CUP NGT ONE
[2016-10-14] MEDS: DIPHENHYDRAMINE 50 MG INJ IV PRN (00:58)
[2016-10-14] MEDS: HYDROmorphONE 1 MG/ML SYG IV PRN ×4 (04:56→21:36)
[2016-10-14] MEDS: PANTOPRAZOLE 40 MG INJ IV SCH (05:05)
[2016-10-14 06:33] LABS: ADD SCAN DIFF NO
[2016-10-14 06:47] LABS: BASOPHILS % 0.1 % (0.0-2.0); EOSINOPHILS # 0.1 10^3/ul (0.0-0.5); EOSINOPHILS % 1.3 % (0.0-7.0); HEMATOCRIT 28.4 % (37.0-47.0); HEMOGLOBIN 9.1 g/dl (12.0-16.0); LYMPHOCYTES # 0.9 10^3/ul (0.8-2.9); LYMPHOCYTES % 10.2 % (15.0-51.0); MEAN CORPUSCULAR HEMOGLOBIN 28.6 pg (29.0-33.0); MEAN CORPUSCULAR VOLUME 89.3 fl (82.0-101.0); MONOCYTE # 0.6 10^3/ul (0.3-0.9); MONOCYTES % 6.5 % (0.0-11.0); NEUTROPHIL # 7.1 10^3/ul (1.6-7.5); NEUTROPHILS % 81.7 % (39.0-77.0); PLATELET COUNT 355 10^3/UL (140-415); RED BLOOD COUNT 3.18 10^6/ul (4.20-5.40); RED CELL DISTRIBUTION WIDTH 12.8 % (11.5-14.5); WHITE BLOOD COUNT 8.6 10^3/ul (4.8-10.8)
[2016-10-14 06:53] LABS: POTASSIUM 3.3 mmol/L (3.5-5.1)
[2016-10-14 06:56] LABS: CREATININE 0.54 mg/dl (0.44-1.00)
[2016-10-14 06:57] LABS: CALCIUM 7.6 mg/dl (8.4-10.2)
[2016-10-14] MEDS: D5-LR + KCL 20 MEQ 1,000 ML IV SCH ×2 (08:31→21:36)
--- NOTE | 2016-10-14 12:38 | PN ---
Date/Time of Note Date/Time of Note DATE: 10/14/16 TIME: 12:37 Assessment/Plan VTE Prophylaxis VTE Prophylaxis Intervention: other Lines/Catheters IV [facility] Type ([facility]): Peripheral IV Urinary Cath still in place: Yes Reason Cath still needed: skin wounds contaminated by urine Assessment/Plan Chief Complaint/Hosp Course 1. Stage IV endometrial cancer, status post surgery. 2. Hypertension. Will hold off antihypertensive for now since the patient's blood pressure is marginal. 3. Dyslipidemia. The patient is n.p.o. Will hold off on statins. 4. Gastritis. Will give IV Protonix instead of Prilosec, which she had been taking prior to admission. Problems: Subjective 24 Hr Interval Summary Free Text/Dictation Patient has no complaints Exam/Review of Systems Vital Signs Vitals Vital Signs Date Time Temp Pulse Resp B/P Pulse Ox O2 Delivery O2 Flow Rate FiO2 10/14/16 11:45 98.5 83 143/93 10/14/16 11:16 16 10/14/16 08:04 97 10/12/16 16:00 Room Air 10/11/16 12:00 2.0 Intake and Output 10/13/16 10/13/16 10/14/16 15:00 23:00 07:00 Intake Total 300 ml 1000 ml 1100 ml Output Total 80 ml 850 ml 1110 ml Balance 220 ml 150 ml -10 ml Exam Constitutional: well developed Head: atraumatic, normocephalic Neck: supple Respiratory: clear to auscultation Cardiovascular: regular rate and rhythm Gastrointestinal: non-tender, soft Extremities: normal pulses Results Result Diagram: 10/14/16 0600 10/14/16 0600 Results 24 hrs Laboratory Tests Test 10/14/16 06:00 White Blood Count 8.6 # Red Blood Count 3.18 L Hemoglobin 9.1 L Hematocrit 28.4 L Mean Corpuscular Volume 89.3 Mean Corpuscular Hemoglobin 28.6 L Mean Corpuscular Hemoglobin Concent 32.0 Red Cell Distribution Width 12.8 Platelet Count 355 Mean Platelet Volume 9.0 Neutrophils % 81.7 H Lymphocytes % 10.2 L Monocytes % 6.5 Eosinophils % 1.3 Basophils % 0.1 Nucleated Red Blood Cells % 0.0 Neutrophils # 7.1 Lymphocytes # 0.9 Monocytes # 0.6 Eosinophils # 0.1 Basophils # 0.0 Nucleated Red Blood Cells # 0.0 Sodium Level 141 Potassium Level 3.3 L Chloride Level 106 Carbon Dioxide Level 29 Anion Gap 9 Blood Urea Nitrogen 5 L Creatinine 0.54 Glucose Level 112 Calcium Level 7.6 L Medications Medications Current Medications Potassium Cl/ Dextrose/Lact Ringer's (D5-Lr + KCl 20 Meq) 1,000 ml @ 100 mls/ hr Q10H IV Last administered on 10/14/16 08:31; Admin Dose 100 MLS/HR; Start 10/10/16 at 17:00 Hydromorphone HCl (Dilaudid) 1 mg Q1H PRN IV PAIN Last administered on 10:14; Admin Dose 1 MG; Start 10/10/16 at 17:00 Pantoprazole (Protonix Iv) 40 mg DAILY@06 IV Last administered on 10/14/16 05: 05; Admin Dose 40 MG; Start 10/11/16 at 06:00 Dimethicone (Blistex Lip [place]) 1 applic Q2H PRN TOP CHAPPED LIPS; Start at 09:30 Diphenhydramine HCl (Benadryl) 25 mg Q6H PRN IV ITCHING Last administered on 00:58; Admin Dose 25 MG; Start 10/11/16 at 16:19 MARCO XAVIER Oct 14, 2016 12:38
[2016-10-14] MEDS ORDERED: FUROSEMIDE 20 MG INJ IV ONE ×2 (14:15)
--- NOTE | 2016-10-14 22:26 | PN ---
Date/Time of Note Date/Time of Note DATE: 10/14/16 TIME: 22:25 Assessment/Plan VTE Prophylaxis VTE Prophylaxis Intervention: SCD's Lines/Catheters IV C[facility]ter Type (from [facility]): Peripheral IV Urinary Cath still in place: Yes Assessment/Plan Chief Complaint/Hosp Course stage IV endometrial cancer Problems: Subjective 24 Hr Interval Summary Free Text/Dictation S- comfortable. not OOB. Questionable flatus O- resp- clear cvs-nsr abd- clean, NT ext- nt no edema A- doing well P- Discussed with family mobilize and await GI fct Exam/Review of Systems Vital Signs Vitals Vital Signs Date Time Temp Pulse Resp B/P Pulse Ox O2 Delivery O2 Flow Rate FiO2 10/14/16 19:10 98.7 84 20 149/83 98 10/12/16 16:00 Room Air 10/11/16 12:00 2.0 Intake and Output 10/13/16 10/13/16 10/14/16 15:00 23:00 07:00 Intake Total 300 ml 1000 ml 1100 ml Output Total 80 ml 850 ml 1110 ml Balance 220 ml 150 ml -10 ml Results Result Diagram: 10/14/16 0600 10/14/16 0600 Results 24 hrs Laboratory Tests Test 10/14/16 06:00 White Blood Count 8.6 # Red Blood Count 3.18 L Hemoglobin 9.1 L Hematocrit 28.4 L Mean Corpuscular Volume 89.3 Mean Corpuscular Hemoglobin 28.6 L Mean Corpuscular Hemoglobin Concent 32.0 Red Cell Distribution Width 12.8 Platelet Count 355 Mean Platelet Volume 9.0 Neutrophils % 81.7 H Lymphocytes % 10.2 L Monocytes % 6.5 Eosinophils % 1.3 Basophils % 0.1 Nucleated Red Blood Cells % 0.0 Neutrophils # 7.1 Lymphocytes # 0.9 Monocytes # 0.6 Eosinophils # 0.1 Basophils # 0.0 Nucleated Red Blood Cells # 0.0 Sodium Level 141 Potassium Level 3.3 L Chloride Level 106 Carbon Dioxide Level 29 Anion Gap 9 Blood Urea Nitrogen 5 L Creatinine 0.54 Glucose Level 112 Calcium Level 7.6 L Medications Medications Current Medications Potassium Cl/ Dextrose/Lact Ringer's (D5-Lr + KCl 20 Meq) 1,000 ml @ 100 mls/ hr Q10H IV Last administered on 10/14/16t 21:36; Admin Dose 100 MLS/HR; Start 4/12/17 at 17:00 Hydromorphone HCl (Dilaudid) 1 mg Q1H PRN IV PAIN Last administered on 21:36; Admin Dose 1 MG; Start 10/10/16 at 17:00 Pantoprazole (Protonix Iv) 40 mg DAILY@06 IV Last administered on 10/14/16 05: 05; Admin Dose 40 MG; Start 10/11/16 at 06:00 Dimethicone (Blistex Lip [place]) 1 applic Q2H PRN TOP CHAPPED LIPS; Start at 09:30 Diphenhydramine HCl (Benadryl) 25 mg Q6H PRN IV ITCHING Last administered on 00:58; Admin Dose 25 MG; Start 10/11/16 at 16:19 NUPUR RODRÍGUEZ MD Oct 14, 2016 22:26
[2016-10-15] MEDS: HYDROmorphONE 1 MG/ML SYG IV PRN ×4 (03:27→22:05)
[2016-10-15 05:04] LABS: ADD SCAN DIFF NO
[2016-10-15 05:14] LABS: BASOPHILS % 0.2 % (0.0-2.0); EOSINOPHILS # 0.1 10^3/ul (0.0-0.5); EOSINOPHILS % 1.7 % (0.0-7.0); HEMATOCRIT 33.8 % (37.0-47.0); LYMPHOCYTES # 0.9 10^3/ul (0.8-2.9); LYMPHOCYTES % 11.7 % (15.0-51.0); MEAN CORPUSCULAR HEMOGLOBIN 28.6 pg (29.0-33.0); MEAN CORPUSCULAR HGB CONC 32.5 g/dl (32.0-37.0); MEAN CORPUSCULAR VOLUME 87.8 fl (82.0-101.0); MEAN PLATELET VOLUME 8.9 fl (7.4-10.4); MONOCYTE # 0.6 10^3/ul (0.3-0.9); MONOCYTES % 7.7 % (0.0-11.0); NEUTROPHIL # 6.3 10^3/ul (1.6-7.5); NEUTROPHILS % 78.2 % (39.0-77.0); PLATELET COUNT 418 10^3/UL (140-415); RED BLOOD COUNT 3.85 10^6/ul (4.20-5.40); RED CELL DISTRIBUTION WIDTH 13.5 % (11.5-14.5)
[2016-10-15] MEDS: PANTOPRAZOLE 40 MG INJ IV SCH (05:36)
[2016-10-15 05:38] LABS: CALCIUM 7.9 mg/dl (8.4-10.2); CREATININE 0.57 mg/dl (0.44-1.00); POTASSIUM 3.8 mmol/L (3.5-5.1)
[2016-10-15 08:21] VITALS: BP 164/94; RESP 18
[2016-10-15 08:33] VITALS: BP 167/98; PULSE 70; RESP 16
[2016-10-15] MEDS: D5-LR + KCL 20 MEQ 1,000 ML IV SCH ×2 (09:39→17:18)
[2016-10-15] MEDS: ACETAMINOPHEN 1000MG/100ML IV 100 ML IVPB PRN (09:58)
[2016-10-15] MEDS ORDERED: hydrALAzine 20 MG INJ IV PRN (10:00)
[2016-10-15 10:01] VITALS: BP 157/86; PULSE 75
--- NOTE | 2016-10-15 12:56 | PN ---
Date/Time of Note Date/Time of Note DATE: 10/15/16 TIME: 12:54 Assessment/Plan VTE Prophylaxis VTE Prophylaxis Intervention: SCD's Lines/Catheters IV Catheter Type (from Nrs): Peripheral IV Urinary Cath still in place: Yes Reason Cath still needed: urinary retention Assessment/Plan Chief Complaint/Hosp Course stage IV endometrial cancer Problems: Assessment/Plan A- doing well other than headache and not really oob P- Discussed with family mobilize and await GI fct better TPN for needed nutrition Subjective 24 Hr Interval Summary Free Text/Dictation S [place] . not OOB. Questionable flatus O- resp- clear cvs-nsr abd- clean, NT ext- nt no edema A- doing well other than headache and not really oob P- Discussed with family mobilize and await GI fct better TPN for needed nutrition Exam/Review of Systems Vital Signs Vitals Vital Signs Date Time Temp Pulse Resp B/P Pulse Ox O2 Delivery O2 Flow Rate FiO2 10/15/16 10:01 75 157/86 10/15/16 08:33 97.7 16 98 Room Air 10/11/16 12:00 2.0 Intake and Output 10/14/16 10/14/16 10/15/16 15:00 23:00 07:00 Intake Total 1200 ml 520 ml Output Total 2010 ml 1075 ml Balance -810 ml -555 ml Results Result Diagram: 10/15/16 0409 10/15/16 0409 Results 24 hrs Laboratory Tests Test 10/15/16 04:09 White Blood Count 8.0 Red Blood Count 3.85 #L Hemoglobin 11.0 #L Hematocrit 33.8 L Mean Corpuscular Volume 87.8 Mean Corpuscular Hemoglobin 28.6 L Mean Corpuscular Hemoglobin Concent 32.5 Red Cell Distribution Width 13.5 Platelet Count 418 H Mean Platelet Volume 8.9 Neutrophils % 78.2 H Lymphocytes % 11.7 L Monocytes % 7.7 Eosinophils % 1.7 Basophils % 0.2 Nucleated Red Blood Cells % 0.0 Neutrophils # 6.3 Lymphocytes # 0.9 Monocytes # 0.6 Eosinophils # 0.1 Basophils # 0.0 Nucleated Red Blood Cells # 0.0 Sodium Level 138 Potassium Level 3.8 Chloride Level 107 Carbon Dioxide Level 30 Anion Gap 5 L Blood Urea Nitrogen 5 L Creatinine 0.57 Glucose Level 121 Calcium Level 7.9 L Medications Medications Current Medications Potassium Cl/ Dextrose/Lact Ringer's (D5-Lr + KCl 20 Meq) 1,000 ml @ 80 mls/hr [id number] IV Last administered on 10/15/16 09:39; Admin Dose 80 MLS/HR; Start at 17:00 Hydromorphone HCl (Dilaudid) 1 mg Q1H PRN IV PAIN Last administered on 05:48; Admin Dose 1 MG; Start 10/10/16 at 17:00 Pantoprazole (Protonix Iv) 40 mg DAILY@06 IV Last administered on 10/15/16 05: 36; Admin Dose 40 MG; Start 10/11/16 at 06:00 Dimethicone (Blistex Lip [place]) 1 applic Q2H PRN TOP CHAPPED LIPS; Start at 09:30 Diphenhydramine HCl (Benadryl) 25 mg Q6H PRN IV ITCHING Last administered on 00:58; Admin Dose 25 MG; Start 10/11/16 at 16:19 Hydralazine HCl 10 mg 10 mg Q4H PRN IV ELEVATED BLOOD PRESSURE; Start 10/15/16 at 10:00 Acetaminophen (Ofirmev 1000mg/ 100ml Iv) 100 ml @ 400 mls/hr Q6H PRN IVPB HEADACHE Last administered on 10/15/16 09:58; Admin Dose 400 MLS/HR; Start at 10:00 NUPUR RODRÍGUEZ MD Oct 15, 2016 12:56
[2016-10-15] MEDS ORDERED: TPN 1,000 ML IV SCH (13:00)
--- NOTE | 2016-10-15 13:37 | CONS ---
Date/Time of Note Date/Time of Note DATE: 10/15/16 TIME: 13:36 Assessment/Plan Assessment/Plan Chief Complaint/Hosp Course The patient is a 56-year-old female with recent diagnosis of endometrial cancer on 09/17/2016 by endometrial biopsy. The patient was diagnosed with stage IV endometrial cancer. She underwent massive surgical procedure with CYNDI/ BSO and recto-sigmoid en-bloc with low anastomosis per Dr. Bueno on 10/11/16. She had extensive positive retroperitoneal lymph nodes removed but the confluence of disease makes her classified as millimeter residual disease. - Per Dr. Bueno, plan for carbo/taxol in about 8 days. - Continue post-op care. Plan to mobilize and await GI function, TPN for nutrition. Will continue to follow. Problems: Consultation Date/Type/Reason Admit Date/Time Oct 10, 2016 at 09:46 Initial Consult Date 10/12/16 Type of Consultation: Oncology 24 HR Interval Summary Free Text/Dictation Tolerating ice chips. Has NG tube in place. Exam/Review of Systems Vital Signs Vitals Vital Signs Date Time Temp Pulse Resp B/P Pulse Ox O2 Delivery O2 Flow Rate FiO2 10/15/16 10:01 75 157/86 10/15/16 08:33 97.7 16 98 Room Air 10/11/16 12:00 2.0 Intake and Output 10/14/16 10/14/16 10/15/16 15:00 23:00 07:00 Intake Total 1200 ml 520 ml Output Total 2010 ml 1075 ml Balance -810 ml -555 ml Exam Constitutional: alert Head: other (NG tube in place) Neck: supple Respiratory: clear to auscultation Cardiovascular: other (tachycardic, regular rhythm) Gastrointestinal: other (dressings c/d/i), tender Results Result Diagram: 10/15/16 0409 10/15/16 0409 Results 24 hrs Laboratory Tests Test 10/15/16 04:09 White Blood Count 8.0 Red Blood Count 3.85 #L Hemoglobin 11.0 #L Hematocrit 33.8 L Mean Corpuscular Volume 87.8 Mean Corpuscular Hemoglobin 28.6 L Mean Corpuscular Hemoglobin Concent 32.5 Red Cell Distribution Width 13.5 Platelet Count 418 H Mean Platelet Volume 8.9 Neutrophils % 78.2 H Lymphocytes % 11.7 L Monocytes % 7.7 Eosinophils % 1.7 Basophils % 0.2 Nucleated Red Blood Cells % 0.0 Neutrophils # 6.3 Lymphocytes # 0.9 Monocytes # 0.6 Eosinophils # 0.1 Basophils # 0.0 Nucleated Red Blood Cells # 0.0 Sodium Level 138 Potassium Level 3.8 Chloride Level 107 Carbon Dioxide Level 30 Anion Gap 5 L Blood Urea Nitrogen 5 L Creatinine 0.57 Glucose Level 121 Calcium Level 7.9 L Medications Medications Current Medications Potassium Cl/ Dextrose/Lact Ringer's (D5-Lr + KCl 20 Meq) 1,000 ml @ 80 mls/hr [id number] IV Last administered on 10/15/16 09:39; Admin Dose 80 MLS/HR; Start at 17:00 Hydromorphone HCl (Dilaudid) 1 mg Q1H PRN IV PAIN Last administered on 05:48; Admin Dose 1 MG; Start 10/10/16 at 17:00 Pantoprazole (Protonix Iv) 40 mg DAILY@06 IV Last administered on 10/15/16 05: 36; Admin Dose 40 MG; Start 10/11/16 at 06:00 Dimethicone (Blistex Lip [place]) 1 applic Q2H PRN TOP CHAPPED LIPS; Start at 09:30 Diphenhydramine HCl (Benadryl) 25 mg Q6H PRN IV ITCHING Last administered on 00:58; Admin Dose 25 MG; Start 10/11/16 at 16:19 Hydralazine HCl 10 mg 10 mg Q4H PRN IV ELEVATED BLOOD PRESSURE; Start 10/15/16 at 10:00 Acetaminophen 100 ml @ 400 mls/hr Q6H PRN IVPB HEADACHE Last administered on 09:58; Admin Dose 400 MLS/HR; Start 10/15/16 at 10:00 Total Parenteral Nutrition (Tpn) 1,000 ml @ 80 mls/hr [id number] IV ; Start at 13:00; Status UNV TO,LINDA Arenas MD Oct 15, 2016 13:37
[2016-10-15] MEDS ORDERED: LIDOCAINE 1% (MPF) 5 ML VIAL SC ONE (15:00)
--- NOTE | 2016-10-15 17:14 | PN ---
Date/Time of Note Date/Time of Note DATE: 10/15/16 TIME: 17:05 Assessment/Plan VTE Prophylaxis VTE Prophylaxis Intervention: SCD's Lines/Catheters IV Catheter Type (from Nrs): Peripheral IV Urinary Cath still in place: Yes Reason Cath still needed: urinary retention Assessment/Plan Chief Complaint/Hosp Course Assessment and plan: - Stage IV endometrial cancer, status post surgical procedure with CYNDI/BSO and recto-sigmoid en-bloc with low anastomosis by Dr. Bueno on 10/11. Continue n.p.o. start TPN upon PICC line insertion. Continue to follow-up surgery recommendations. - Hypertension. Continue hydralazine as needed for systolic blood pressure above 170. - Dyslipidemia. We will resume statins when patient is able to tolerate p.o. - Gastritis. Continue Protonix. Further recommendations based on clinical course. Plan of care discussed with Dr. Richardson. Problems: Subjective 24 Hr Interval Summary Free Text/Dictation Patient is awake alert, sitting in chair, pain is well controlled with IV Dilaudid as needed, patient has NG tube was wall suctioning, denies any nausea vomiting. Exam/Review of Systems Vital Signs Vitals Vital Signs Date Time Temp Pulse Resp B/P Pulse Ox O2 Delivery O2 Flow Rate FiO2 10/15/16 10:01 75 157/86 10/15/16 08:33 97.7 16 98 Room Air 10/11/16 12:00 2.0 Intake and Output 10/14/16 10/14/16 10/15/16 15:00 23:00 07:00 Intake Total 1200 ml 520 ml Output Total 2010 ml 1075 ml Balance -810 ml -555 ml Exam Constitutional: alert, oriented Psych: no complaints Head: normocephalic Eyes: nl conjunctiva ENMT: nl external ears & nose Neck: non-tender, supple Respiratory: clear to auscultation, normal air movement Cardiovascular: nl pulses, regular rate and rhythm Gastrointestinal: other (Status post surgery, with dry clean and intact dressing and left lower quadrant BJ.), soft Musculoskeletal: nl extremities to inspection Extremities: normal pulses Neurological: LOGISTICS ASSOCIATE II-XII intact Results Result Diagram: 10/15/16 0409 10/15/16 0409 Results 24 hrs Laboratory Tests Test 10/15/16 04:09 White Blood Count 8.0 Red Blood Count 3.85 #L Hemoglobin 11.0 #L Hematocrit 33.8 L Mean Corpuscular Volume 87.8 Mean Corpuscular Hemoglobin 28.6 L Mean Corpuscular Hemoglobin Concent 32.5 Red Cell Distribution Width 13.5 Platelet Count 418 H Mean Platelet Volume 8.9 Neutrophils % 78.2 H Lymphocytes % 11.7 L Monocytes % 7.7 Eosinophils % 1.7 Basophils % 0.2 Nucleated Red Blood Cells % 0.0 Neutrophils # 6.3 Lymphocytes # 0.9 Monocytes # 0.6 Eosinophils # 0.1 Basophils # 0.0 Nucleated Red Blood Cells # 0.0 Sodium Level 138 Potassium Level 3.8 Chloride Level 107 Carbon Dioxide Level 30 Anion Gap 5 L Blood Urea Nitrogen 5 L Creatinine 0.57 Glucose Level 121 Calcium Level 7.9 L Medications Medications Current Medications Potassium Cl/ Dextrose/Lact Ringer's (D5-Lr + KCl 20 Meq) 1,000 ml @ 40 mls/hr Q24H IV Last administered on 10/15/16 09:39; Admin Dose 80 MLS/HR; Start 10/10 at 17:00 Hydromorphone HCl (Dilaudid) 1 mg Q1H PRN IV PAIN Last administered on 05:48; Admin Dose 1 MG; Start 10/10/16 at 17:00 Pantoprazole (Protonix Iv) 40 mg DAILY@06 IV Last administered on 10/15/16 05: 36; Admin Dose 40 MG; Start 10/11/16 at 06:00 Dimethicone (Blistex Lip [place]) 1 applic Q2H PRN TOP CHAPPED LIPS; Start at 09:30 Diphenhydramine HCl (Benadryl) 25 mg Q6H PRN IV ITCHING Last administered on 00:58; Admin Dose 25 MG; Start 10/11/16 at 16:19 Hydralazine HCl 10 mg 10 mg Q4H PRN IV ELEVATED BLOOD PRESSURE; Start 10/15/16 at 10:00 Acetaminophen 100 ml @ 400 mls/hr Q6H PRN IVPB HEADACHE Last administered on 09:58; Admin Dose 400 MLS/HR; Start 10/15/16 at 10:00 Total Parenteral Nutrition 1,000 ml @ 40 mls/hr Q24H IV ; Start 10/15/16 at 20: 00 Fat Emulsion Intravenous (Liposyn Ii 20%) 250 ml @ 20.833 mls/ hr DAILY@16 IV ; Start 10/15/16 at 20:00 ELVIN TEIXEIRA Oct 15, 2016 17:13
[2016-10-15 19:25] VITALS: BP 155/89; RESP 20
[2016-10-15] MEDS: FAT EMULSION 20% 250 ML IV SCH (19:55)
[2016-10-15] MEDS: TPN 1,000 ML IV SCH (19:55)
[2016-10-16] MEDS: HYDROmorphONE 1 MG/ML SYG IV PRN ×3 (03:52→20:56)
[2016-10-16] MEDS: D5-LR + KCL 20 MEQ 1,000 ML IV SCH ×2 (03:52→21:50)
[2016-10-16 05:36] LABS: ADD SCAN DIFF NO
[2016-10-16 05:45] LABS: POTASSIUM 3.9 mmol/L (3.5-5.1)
[2016-10-16 05:54] LABS: MAGNESIUM 2.1 mg/dl (1.7-2.5); PHOSPHORUS 3.8 mg/dl (2.5-4.9)
[2016-10-16 05:56] LABS: CALCIUM 8.2 mg/dl (8.4-10.2); CREATININE 0.49 mg/dl (0.44-1.00)
[2016-10-16] MEDS: PANTOPRAZOLE 40 MG INJ IV SCH (06:03)
[2016-10-16 07:00] VITALS: BP 138/81; RESP 18
--- NOTE | 2016-10-16 09:01 | CONS ---
Date/Time of Note Date/Time of Note DATE: 10/16/16 TIME: 09:00 Assessment/Plan Assessment/Plan Chief Complaint/Hosp Course The patient is a 56-year-old female with recent diagnosis of endometrial cancer on 09/17/2016 by endometrial biopsy. The patient was diagnosed with stage IV endometrial cancer. She underwent massive surgical procedure with CYNDI/ BSO and recto-sigmoid en-bloc with low anastomosis per Dr. Bueno on 10/11/16. She had extensive positive retroperitoneal lymph nodes removed but the confluence of disease makes her classified as millimeter residual disease. - Per Dr. Bueno, plan for carbo/taxol in about 8 days. - Continue post-op care. Plan to mobilize and await GI function, TPN for nutrition. - Will need restaging scans prior to initiation of chemotherapy. - PICC line placed for TPN, can also use for chemotherapy Will continue to follow. Problems: Consultation Date/Type/Reason Admit Date/Time Oct 10, 2016 at 09:46 Initial Consult Date 10/12/16 Type of Consultation: Oncology 24 HR Interval Summary Free Text/Dictation Patient tolerating ice chips. PICC line placed for TPN. Exam/Review of Systems Vital Signs Vitals Vital Signs Date Time Temp Pulse Resp B/P Pulse Ox O2 Delivery O2 Flow Rate FiO2 10/16/16 07:00 98.7 81 18 138/81 97 10/15/16 08:33 Room Air Intake and Output 10/15/16 10/15/16 10/16/16 15:00 23:00 07:00 Intake Total 100 ml 640 ml 480 ml Output Total 125 ml 1425 ml 675 ml Balance -25 ml -785 ml -195 ml Exam Constitutional: alert Head: other (NG tube in place) Neck: supple Respiratory: clear to auscultation Cardiovascular: other (tachycardic, regular rhythm) Gastrointestinal: other (dressings c/d/i), tender Results Result Diagram: 10/15/16 0409 10/16/16 0441 Results 24 hrs Laboratory Tests Test 10/16/16 04:41 Sodium Level 140 Potassium Level 3.9 Chloride Level 104 Carbon Dioxide Level 29 Anion Gap 11 Blood Urea Nitrogen 7 Creatinine 0.49 Glucose Level 102 Calcium Level 8.2 L Phosphorus Level 3.8 Magnesium Level 2.1 Medications Medications Current Medications Potassium Cl/ Dextrose/Lact Ringer's (D5-Lr + KCl 20 Meq) 1,000 ml @ 40 mls/hr Q24H IV Last administered on 10/16/16 03:52; Admin Dose 40 MLS/HR; Start 10/10 at 17:00 Hydromorphone HCl (Dilaudid) 1 mg Q1H PRN IV PAIN Last administered on 03:52; Admin Dose 1 MG; Start 10/10/16 at 17:00 Pantoprazole (Protonix Iv) 40 mg DAILY@06 IV Last administered on 10/16/16 06: 03; Admin Dose 40 MG; Start 10/11/16 at 06:00 Dimethicone (Blistex Lip [place]) 1 applic Q2H PRN TOP CHAPPED LIPS; Start at 09:30 Diphenhydramine HCl (Benadryl) 25 mg Q6H PRN IV ITCHING Last administered on 00:58; Admin Dose 25 MG; Start 10/11/16 at 16:19 Hydralazine HCl 10 mg 10 mg Q4H PRN IV ELEVATED BLOOD PRESSURE; Start 10/15/16 at 10:00 Acetaminophen 100 ml @ 400 mls/hr Q6H PRN IVPB HEADACHE Last administered on 09:58; Admin Dose 400 MLS/HR; Start 10/15/16 at 10:00 Total Parenteral Nutrition 1,000 ml @ 40 mls/hr Q24H IV ; Start 10/15/16 at 20: 00 Fat Emulsion Intravenous (Liposyn Ii 20%) 250 ml @ 20.833 mls/ hr DAILY@16 IV ; Start 10/15/16 at 20:00 LINDA SWANSON MD Oct 16, 2016 09:01
--- NOTE | 2016-10-16 11:09 | RADRPT ---
PROCEDURE: Ultrasound guidance for placement of needle in right upper extremity vein. CLINICAL INDICATION: Venous access. TECHNIQUE: Limited sonography of the right upper extremity was performed. Ultrasound images were recorded and stored in the patient's medical record. COMPARISON: None. FINDINGS: The ultrasound images demonstrate a patent right upper extremity vein. The PICC line was inserted b y the PICC line nurse. IMPRESSION: 1. Ultrasound guidance for a needle placement in a right upper extremity vein. 2. The visualized right upper extremity vein is patent. RPTAT: QQ .Kingston Felipe MD, MD Date Time Electronically viewed and signed by .Kingston Felipe MD, MD on 10/16/2016 11:08 .R/
[2016-10-16 11:29] LABS: BASOPHILS % 0.3 % (0.0-2.0); EOSINOPHILS # 0.2 10^3/ul (0.0-0.5); EOSINOPHILS % 1.9 % (0.0-7.0); HEMOGLOBIN 10.9 g/dl (12.0-16.0); LYMPHOCYTES # 0.8 10^3/ul (0.8-2.9); LYMPHOCYTES % 8.3 % (15.0-51.0); MEAN CORPUSCULAR HEMOGLOBIN 28.8 pg (29.0-33.0); MEAN CORPUSCULAR HGB CONC 32.1 g/dl (32.0-37.0); MEAN CORPUSCULAR VOLUME 89.9 fl (82.0-101.0); MEAN PLATELET VOLUME 9.1 fl (7.4-10.4); MONOCYTE # 0.7 10^3/ul (0.3-0.9); MONOCYTES % 7.8 % (0.0-11.0); NEUTROPHIL # 7.6 10^3/ul (1.6-7.5); NEUTROPHILS % 81.3 % (39.0-77.0); PLATELET COUNT 489 10^3/UL (140-415); RED BLOOD COUNT 3.78 10^6/ul (4.20-5.40); RED CELL DISTRIBUTION WIDTH 12.9 % (11.5-14.5); WHITE BLOOD COUNT 9.4 10^3/ul (4.8-10.8)
--- NOTE | 2016-10-16 13:02 | RADRPT ---
PROCEDURE: XR Chest. CLINICAL INDICATION: Check PICC line position. TECHNIQUE: Single frontal view. COMPARISON: No prior study is available for comparison. FINDINGS: There is a right arm PICC line with the tip in the lower superior vena cava. There is mild atelecta sis at the left lung base. The lungs are otherwise clear. The heart size is normal. There is no pleural effusion. There is no pneumothorax. IMPRESSION: 1. Satisfactory position of right arm PICC line. 2. Mild left basilar atelectasis. 3. Otherwise normal chest radiograph. RPTAT: QQ .Kingston Felipe MD, MD Date Time Electronically viewed and signed by .Kingston Felipe MD, on 10/16/2016 13:01 .R/
--- NOTE | 2016-10-16 14:49 | PN ---
Date/Time of Note Date/Time of Note DATE: 10/16/16 TIME: 14:47 Assessment/Plan VTE Prophylaxis VTE Prophylaxis Intervention: SCD's Lines/Catheters IV Catheter Type (from Nrs): Peripheral IV Urinary Cath still in place: Yes Reason Cath still needed: urinary retention Assessment/Plan Chief Complaint/Hosp Course stage IV endometrial cancer Problems: Assessment/Plan A- improving but bowel fct uncertain and not mobile P- reduce narcotics and OOB more Subjective 24 Hr Interval Summary Free Text/Dictation states + flats but also c/o gas pains Exam/Review of Systems Vital Signs Vitals Vital Signs Date Time Temp Pulse Resp B/P Pulse Ox O2 Delivery O2 Flow Rate FiO2 10/16/16 07:00 98.7 81 18 138/81 97 10/15/16 08:33 Room Air Intake and Output 10/15/16 10/15/16 10/16/16 14:59 22:59 06:59 Intake Total 100 ml 640 ml 480 ml Output Total 125 ml 1425 ml 675 ml Balance -25 ml -785 ml -195 ml Exam O- resp- clear cvs-nsr abd- clean, NT ext- nt no edema Results Result Diagram: 10/16/16 0441 10/16/16 0441 Results 24 hrs Laboratory Tests Test 10/16/16 04:41 White Blood Count 9.4 Red Blood Count 3.78 L Hemoglobin 10.9 L Hematocrit 34.0 L Mean Corpuscular Volume 89.9 Mean Corpuscular Hemoglobin 28.8 L Mean Corpuscular Hemoglobin Concent 32.1 Red Cell Distribution Width 12.9 Platelet Count 489 H Mean Platelet Volume 9.1 Neutrophils % 81.3 H Lymphocytes % 8.3 L Monocytes % 7.8 Eosinophils % 1.9 Basophils % 0.3 Nucleated Red Blood Cells % 0.0 Neutrophils # 7.6 H Lymphocytes # 0.8 Monocytes # 0.7 Eosinophils # 0.2 Basophils # 0.0 Nucleated Red Blood Cells # 0.0 Sodium Level 140 Potassium Level 3.9 Chloride Level 104 Carbon Dioxide Level 29 Anion Gap 11 Blood Urea Nitrogen 7 Creatinine 0.49 Glucose Level 102 Calcium Level 8.2 L Phosphorus Level 3.8 Magnesium Level 2.1 Medications Medications Current Medications Potassium Cl/ Dextrose/Lact Ringer's (D5-Lr + KCl 20 Meq) 1,000 ml @ 40 mls/hr Q24H IV Last administered on 10/16/16 03:52; Admin Dose 40 MLS/HR; Start 10/10 at 17:00 Pantoprazole (Protonix Iv) 40 mg DAILY@06 IV Last administered on 10/16/16 06: 03; Admin Dose 40 MG; Start 10/11/16 at 06:00 Dimethicone (Blistex Lip [place]) 1 applic Q2H PRN TOP CHAPPED LIPS; Start at 09:30 Diphenhydramine HCl (Benadryl) 25 mg Q6H PRN IV ITCHING Last administered on 00:58; Admin Dose 25 MG; Start 10/11/16 at 16:19 Hydralazine HCl 10 mg 10 mg Q4H PRN IV ELEVATED BLOOD PRESSURE; Start 10/15/16 at 10:00 Acetaminophen 100 ml @ 400 mls/hr Q6H PRN IVPB HEADACHE Last administered on 09:58; Admin Dose 400 MLS/HR; Start 10/15/16 at 10:00 Total Parenteral Nutrition 1,000 ml @ 40 mls/hr Q24H IV ; Start 10/15/16 at 20: 00 Fat Emulsion Intravenous (Liposyn Ii 20%) 250 ml @ 20.833 mls/ hr DAILY@16 IV ; Start 10/15/16 at 20:00 IV Flush (NS 10 ml) 10 ml PRN PRN IV FLUSH LINE; Start 10/16/16 at 11:00 Hydromorphone HCl (Dilaudid) 0.5 mg Q2 PRN IV PAIN; Start 10/16/16 at 15:00; Status NUPUR MONTOYA MD Oct 16, 2016 14:49
[2016-10-16] MEDS: TPN 1,000 ML IV SCH (15:50)
[2016-10-16] MEDS: FAT EMULSION 20% 250 ML IV SCH (15:53)
--- NOTE | 2016-10-16 16:57 | PN ---
Date/Time of Note Date/Time of Note DATE: 10/16/16 TIME: 16:55 Assessment/Plan VTE Prophylaxis VTE Prophylaxis Intervention: SCD's Lines/Catheters IV Catheter Type (from Nrs): Peripheral IV Urinary Cath still in place: Yes Reason Cath still needed: urinary retention Assessment/Plan Chief Complaint/Hosp Course Assessment and plan: - Stage IV endometrial cancer, status post surgical procedure with CYNDI/BSO and recto-sigmoid en-bloc with low anastomosis by Dr. Bueno on 10/11. Continue n.p.o. start TPN upon PICC line insertion. Continue to follow-up surgery recommendations. - Hypertension. Continue hydralazine as needed for systolic blood pressure above 170. - Dyslipidemia. We will resume statins when patient is able to tolerate p.o. - Gastritis. Continue Protonix. Further recommendations based on clinical course. Plan of care discussed with Dr. Richardson. Problems: Subjective 24 Hr Interval Summary Free Text/Dictation Patient status post a right upper extremity PICC line insertion, getting started on TPN and lipids, pain is well controlled, no nausea vomiting, NG tube to intermittent wall suctioning. Exam/Review of Systems Vital Signs Vitals Vital Signs Date Time Temp Pulse Resp B/P Pulse Ox O2 Delivery O2 Flow Rate FiO2 10/16/16 07:00 98.7 81 18 138/81 97 10/15/16 08:33 Room Air Intake and Output 10/15/16 10/15/16 10/16/16 15:00 23:00 07:00 Intake Total 100 ml 640 ml 480 ml Output Total 125 ml 1425 ml 675 ml Balance -25 ml -785 ml -195 ml Exam Constitutional: alert, oriented Psych: no complaints Head: normocephalic Eyes: nl conjunctiva ENMT: nl external ears & nose Neck: non-tender, supple Respiratory: clear to auscultation, normal air movement Cardiovascular: nl pulses, regular rate and rhythm Gastrointestinal: other (Status post surgery, with dry clean and intact dressing and left lower quadrant BJ.), soft Musculoskeletal: nl extremities to inspection Extremities: normal pulses Neurological: GYROSCOPIC INSTRUMENT TESTER II-XII intact Results Result Diagram: 10/16/16 0441 10/16/16 0441 Results 24 hrs Laboratory Tests Test 10/16/16 04:41 White Blood Count 9.4 Red Blood Count 3.78 L Hemoglobin 10.9 L Hematocrit 34.0 L Mean Corpuscular Volume 89.9 Mean Corpuscular Hemoglobin 28.8 L Mean Corpuscular Hemoglobin Concent 32.1 Red Cell Distribution Width 12.9 Platelet Count 489 H Mean Platelet Volume 9.1 Neutrophils % 81.3 H Lymphocytes % 8.3 L Monocytes % 7.8 Eosinophils % 1.9 Basophils % 0.3 Nucleated Red Blood Cells % 0.0 Neutrophils # 7.6 H Lymphocytes # 0.8 Monocytes # 0.7 Eosinophils # 0.2 Basophils # 0.0 Nucleated Red Blood Cells # 0.0 Sodium Level 140 Potassium Level 3.9 Chloride Level 104 Carbon Dioxide Level 29 Anion Gap 11 Blood Urea Nitrogen 7 Creatinine 0.49 Glucose Level 102 Calcium Level 8.2 L Phosphorus Level 3.8 Magnesium Level 2.1 Medications Medications Current Medications Potassium Cl/ Dextrose/Lact Ringer's (D5-Lr + KCl 20 Meq) 1,000 ml @ 40 mls/hr Q24H IV Last administered on 10/16/16 03:52; Admin Dose 40 MLS/HR; Start 10/10 at 17:00 Pantoprazole (Protonix Iv) 40 mg DAILY@06 IV Last administered on 10/16/16 06: 03; Admin Dose 40 MG; Start 10/11/16 at 06:00 Dimethicone (Blistex Lip [place]) 1 applic Q2H PRN TOP CHAPPED LIPS; Start at 09:30 Diphenhydramine HCl (Benadryl) 25 mg Q6H PRN IV ITCHING Last administered on 00:58; Admin Dose 25 MG; Start 10/11/16 at 16:19 Hydralazine HCl 10 mg 10 mg Q4H PRN IV ELEVATED BLOOD PRESSURE; Start 10/15/16 at 10:00 Acetaminophen 100 ml @ 400 mls/hr Q6H PRN IVPB HEADACHE Last administered on 09:58; Admin Dose 400 MLS/HR; Start 10/15/16 at 10:00 Total Parenteral Nutrition 1,000 ml @ 40 mls/hr Q24H IV Last administered on 15:50; Admin Dose 40 MLS/HR; Start 10/15/16 at 20:00 Fat Emulsion Intravenous (Liposyn Ii 20%) 250 ml @ 20.833 mls/ hr DAILY@16 IV Last administered on 10/16/16t 15:53; Admin Dose 20.833 MLS/HR; Start 10/15/16 at 20:00 IV Flush (NS 10 ml) 10 ml PRN PRN IV FLUSH LINE; Start 10/16/16 at 11:00 Hydromorphone HCl (Dilaudid) 0.5 mg Q2 PRN IV PAIN; Start 10/16/16 at 15:00 ELVIN TEIXEIRA Oct 16, 2016 16:57
[2016-10-16 19:16] VITALS: BP 130/83; RESP 20
[2016-10-17] MEDS: ACCU-CHEK XX SCH ×2 (01:25→09:51)
[2016-10-17] MEDS: HYDROmorphONE 1 MG/ML SYG IV PRN ×4 (02:17→18:43)
[2016-10-17] MEDS: D5-LR + KCL 20 MEQ 1,000 ML IV SCH (04:56)
[2016-10-17 05:24] LABS: ADD SCAN DIFF NO
[2016-10-17 05:30] LABS: INR 1.1; PROTIME 14.2 Sec (12.2-14.2); PT RATIO 1.1
[2016-10-17 05:31] LABS: PARTIAL THROMBOPLASTIN TIME 29.9 Sec (25.0-35.0)
[2016-10-17 05:41] LABS: ALBUMIN 2.5 g/dl (3.3-4.9)
[2016-10-17 05:42] LABS: POTASSIUM 3.3 mmol/L (3.5-5.1)
[2016-10-17 05:44] LABS: ALBUMIN/GLOBULIN RATIO 0.89; BILIRUBIN,INDIRECT 0.1 mg/dl (0-1.1); BILIRUBIN,TOTAL 0.1 mg/dl (0.2-1.3); CREATININE 0.5 mg/dl (0.44-1.00); TOTAL PROTEIN 5.3 g/dl (6.1-8.1)
[2016-10-17 05:48] LABS: BASOPHILS % 0.1 % (0.0-2.0); EOSINOPHILS # 0.2 10^3/ul (0.0-0.5); HEMATOCRIT 32.4 % (37.0-47.0); HEMOGLOBIN 10.7 g/dl (12.0-16.0); LYMPHOCYTES # 0.8 10^3/ul (0.8-2.9); LYMPHOCYTES % 6.7 % (15.0-51.0); MEAN CORPUSCULAR HEMOGLOBIN 29.2 pg (29.0-33.0); MEAN CORPUSCULAR VOLUME 88.5 fl (82.0-101.0); MEAN PLATELET VOLUME 8.8 fl (7.4-10.4); MONOCYTE # 0.7 10^3/ul (0.3-0.9); NEUTROPHIL # 9.7 10^3/ul (1.6-7.5); NEUTROPHILS % 84.8 % (39.0-77.0); PLATELET COUNT 473 10^3/UL (140-415); RED BLOOD COUNT 3.66 10^6/ul (4.20-5.40); RED CELL DISTRIBUTION WIDTH 12.6 % (11.5-14.5); WHITE BLOOD COUNT 11.5 10^3/ul (4.8-10.8)
[2016-10-17] MEDS: PANTOPRAZOLE 40 MG INJ IV SCH (06:25)
[2016-10-17] MEDS ORDERED: SOD CHLORIDE 0.9% 250 ML IV* ONE (06:42)
[2016-10-17 07:50] VITALS: BP 147/65; RESP 16
--- NOTE | 2016-10-17 12:44 | CONS ---
Date/Time of Note Date/Time of Note DATE: 10/17/16 TIME: 12:43 Assessment/Plan Assessment/Plan Chief Complaint/Hosp Course The patient is a 56-year-old female with recent diagnosis of endometrial cancer on 09/17/2016 by endometrial biopsy. The patient was diagnosed with stage IV endometrial cancer. She underwent massive surgical procedure with CYNDI/ BSO and recto-sigmoid en-bloc with low anastomosis per Dr. Bueno on 10/11/16. She had extensive positive retroperitoneal lymph nodes removed but the confluence of disease makes her classified as millimeter residual disease. - Per Dr. Bueno, plan for carbo/taxol in about 8 days. - Continue post-op care. Plan to mobilize and await GI function, TPN for nutrition. - Discussed with Dr. Bueno, will hold off on CT scan at this time as would be difficult to tell the difference between reactive tissue postop and metastatic disease. Additionally, oral contrast could harm her anastomosis. Will obtain prior CT scan from Dr. Bueno's office. - PICC line placed for TPN, can also use for chemotherapy Will continue to follow. Problems: Consultation Date/Type/Reason Admit Date/Time Oct 10, 2016 at 09:46 Initial Consult Date 10/12/16 Type of Consultation: Oncology 24 HR Interval Summary Free Text/Dictation Patient doing well. Still has NG tube, tolerating ice chips. Has not yet gotten out of bed. Exam/Review of Systems Vital Signs Vitals Vital Signs Date Time Temp Pulse Resp B/P Pulse Ox O2 Delivery O2 Flow Rate FiO2 10/17/16 07:50 98.3 92 16 147/65 98 10/15/16 08:33 Room Air Intake and Output 10/16/16 10/16/16 10/17/16 15:00 23:00 07:00 Intake Total 300.83 ml 1279.17 ml Output Total 850 ml 1180 ml Balance -549.17 ml 99.17 ml Exam Constitutional: alert Head: other (NG tube in place) Neck: supple Respiratory: clear to auscultation Cardiovascular: other (tachycardic, regular rhythm) Gastrointestinal: other (dressings c/d/i), tender Results Result Diagram: 10/17/16 0426 10/17/16 0420 Results 24 hrs Laboratory Tests Test 10/17/16 04:20 10/17/16 04:26 10/17/16 04:28 10/17/16 10:16 Sodium Level 139 Potassium Level 3.3 L Chloride Level 102 Carbon Dioxide Level 30 Anion Gap 10 Blood Urea Nitrogen 8 Creatinine 0.50 Glucose Level 131 Calcium Level 8.0 L Total Bilirubin 0.1 L Direct Bilirubin 0.00 Indirect Bilirubin 0.1 Aspartate Amino Transf (AST/SGOT) 33 Alanine Aminotransferase (ALT/SGPT) 37 Alkaline Phosphatase 75 Total Protein 5.3 L Albumin 2.5 L Globulin 2.80 Albumin/Globulin Ratio 0.89 White Blood Count 11.5 #H Red Blood Count 3.66 L Hemoglobin 10.7 L Hematocrit 32.4 L Mean Corpuscular Volume 88.5 Mean Corpuscular Hemoglobin 29.2 Mean Corpuscular Hemoglobin Concent 33.0 Red Cell Distribution Width 12.6 Platelet Count 473 H Mean Platelet Volume 8.8 Neutrophils % 84.8 H Lymphocytes % 6.7 L Monocytes % 6.0 Eosinophils % 2.0 Basophils % 0.1 Nucleated Red Blood Cells % 0.0 Neutrophils # 9.7 H Lymphocytes # 0.8 Monocytes # 0.7 Eosinophils # 0.2 Basophils # 0.0 Nucleated Red Blood Cells # 0.0 Prothrombin Time 14.2 Prothrombin Time Ratio 1.1 INR International Normalized Ratio 1.10 Activated Partial Thromboplast Time 29.9 Bedside Glucose 135 Medications Medications Current Medications Potassium Cl/ Dextrose/Lact Ringer's (D5-Lr + KCl 20 Meq) 1,000 ml @ 40 mls/hr Q24H IV Last administered on 10/17/16 04:56; Admin Dose 40 MLS/HR; Start 10/10 at 17:00 Pantoprazole (Protonix Iv) 40 mg DAILY@06 IV Last administered on 10/17/16 06: 25; Admin Dose 40 MG; Start 10/11/16 at 06:00 Dimethicone (Blistex Lip [place]) 1 applic Q2H PRN TOP CHAPPED LIPS; Start at 09:30 Diphenhydramine HCl (Benadryl) 25 mg Q6H PRN IV ITCHING Last administered on 00:58; Admin Dose 25 MG; Start 10/11/16 at 16:19 Hydralazine HCl 10 mg 10 mg Q4H PRN IV ELEVATED BLOOD PRESSURE; Start 10/15/16 at 10:00 Acetaminophen 100 ml @ 400 mls/hr Q6H PRN IVPB HEADACHE Last administered on 09:58; Admin Dose 400 MLS/HR; Start 10/15/16 at 10:00 Total Parenteral Nutrition 1,000 ml @ 40 mls/hr Q24H IV Last administered on 15:50; Admin Dose 40 MLS/HR; Start 10/15/16 at 20:00 Fat Emulsion Intravenous (Liposyn Ii 20%) 250 ml @ 20.833 mls/ hr DAILY@16 IV Last administered on 10/16/16 15:53; Admin Dose 20.833 MLS/HR; Start 10/15/16 at 20:00 IV Flush (NS 10 ml) 10 ml PRN PRN IV FLUSH LINE; Start 10/16/16 at 11:00 Hydromorphone HCl (Dilaudid) 0.5 mg Q2 PRN IV PAIN Last administered on 11:00; Admin Dose 0.5 MG; Start 10/16/16 at 15:00 Diagnostic Test (Pha) (Accu-Chek) 1 ea Q12 XX Last administered on 10/17/16 09 :51; Admin Dose 1 EA; Start 10/17/16 at 09:51 TOLINDA MD Oct 17, 2016 12:44
--- NOTE | 2016-10-17 15:48 | PN ---
Date/Time of Note Date/Time of Note DATE: 10/17/16 TIME: 15:45 Assessment/Plan VTE Prophylaxis VTE Prophylaxis Intervention: SCD's Lines/Catheters IV Catheter Type (from Nrs): PICC Line Central line still needed: Yes Urinary Cath still in place: Yes Reason Cath still needed: urinary retention Assessment/Plan Chief Complaint/Hosp Course Assessment and plan: - Stage IV endometrial cancer, status post surgical procedure with CYNDI/BSO and recto-sigmoid en-bloc with low anastomosis by Dr. Bueno on 10/11. Continue n.p.o. continue TPN and lipids per home visit field care manager recommendation. continue to follow-up surgery recommendations. - Hypertension. Continue hydralazine as needed for systolic blood pressure above 170. - Dyslipidemia. We will resume statins when patient is able to tolerate p.o. - Gastritis. Continue Protonix. Further recommendations based on clinical course. Plan of care discussed with Dr. Richardson. Problems: Subjective 24 Hr Interval Summary Free Text/Dictation Patient's complains of NG tube discomfort, otherwise comfortable, denies any nausea vomiting, afebrile. Exam/Review of Systems Vital Signs Vitals Vital Signs Date Time Temp Pulse Resp B/P Pulse Ox O2 Delivery O2 Flow Rate FiO2 10/17/16 07:50 98.3 92 16 147/65 98 10/15/16 08:33 Room Air Intake and Output 10/16/16 10/16/16 10/17/16 14:59 22:59 06:59 Intake Total 300.83 ml 1279.17 ml Output Total 850 ml 1180 ml Balance -549.17 ml 99.17 ml Exam Constitutional: alert, oriented Psych: no complaints Head: normocephalic Eyes: nl conjunctiva ENMT: nl external ears & nose Neck: non-tender, supple Respiratory: clear to auscultation, normal air movement Cardiovascular: nl pulses, regular rate and rhythm Gastrointestinal: other (Status post surgery, with dry clean and intact dressing and left lower quadrant BJ.), soft Musculoskeletal: nl extremities to inspection Extremities: normal pulses Neurological: DEICER FINISHER II-XII intact Results Result Diagram: 10/17/16 0426 10/17/16 0420 Results 24 hrs Laboratory Tests Test 10/17/16 04:20 10/17/16 04:26 10/17/16 04:28 10/17/16 10:16 Sodium Level 139 Potassium Level 3.3 L Chloride Level 102 Carbon Dioxide Level 30 Anion Gap 10 Blood Urea Nitrogen 8 Creatinine 0.50 Glucose Level 131 Calcium Level 8.0 L Total Bilirubin 0.1 L Direct Bilirubin 0.00 Indirect Bilirubin 0.1 Aspartate Amino Transf (AST/SGOT) 33 Alanine Aminotransferase (ALT/SGPT) 37 Alkaline Phosphatase 75 Total Protein 5.3 L Albumin 2.5 L Globulin 2.80 Albumin/Globulin Ratio 0.89 White Blood Count 11.5 #H Red Blood Count 3.66 L Hemoglobin 10.7 L Hematocrit 32.4 L Mean Corpuscular Volume 88.5 Mean Corpuscular Hemoglobin 29.2 Mean Corpuscular Hemoglobin Concent 33.0 Red Cell Distribution Width 12.6 Platelet Count 473 H Mean Platelet Volume 8.8 Neutrophils % 84.8 H Lymphocytes % 6.7 L Monocytes % 6.0 Eosinophils % 2.0 Basophils % 0.1 Nucleated Red Blood Cells % 0.0 Neutrophils # 9.7 H Lymphocytes # 0.8 Monocytes # 0.7 Eosinophils # 0.2 Basophils # 0.0 Nucleated Red Blood Cells # 0.0 Prothrombin Time 14.2 Prothrombin Time Ratio 1.1 INR International Normalized Ratio 1.10 Activated Partial Thromboplast Time 29.9 Bedside Glucose 135 Medications Medications Current Medications Potassium Cl/ Dextrose/Lact Ringer's (D5-Lr + KCl 20 Meq) 1,000 ml @ 40 mls/hr Q24H IV Last administered on 10/17/16 04:56; Admin Dose 40 MLS/HR; Start 10/10 at 17:00 Pantoprazole (Protonix Iv) 40 mg DAILY@06 IV Last administered on 10/17/16 06: 25; Admin Dose 40 MG; Start 10/11/16 at 06:00 Dimethicone (Blistex Lip [place]) 1 applic Q2H PRN TOP CHAPPED LIPS; Start at 09:30 Diphenhydramine HCl (Benadryl) 25 mg Q6H PRN IV ITCHING Last administered on 00:58; Admin Dose 25 MG; Start 10/11/16 at 16:19 Hydralazine HCl 10 mg 10 mg Q4H PRN IV ELEVATED BLOOD PRESSURE; Start 10/15/16 at 10:00 Acetaminophen 100 ml @ 400 mls/hr Q6H PRN IVPB HEADACHE Last administered on 09:58; Admin Dose 400 MLS/HR; Start 10/15/16 at 10:00 Total Parenteral Nutrition 1,000 ml @ 40 mls/hr Q24H IV Last administered on 15:50; Admin Dose 40 MLS/HR; Start 10/15/16 at 20:00 Fat Emulsion Intravenous (Liposyn Ii 20%) 250 ml @ 20.833 mls/ hr DAILY@16 IV Last administered on 10/16/16 15:53; Admin Dose 20.833 MLS/HR; Start 10/15/16 at 20:00 IV Flush (NS 10 ml) 10 ml PRN PRN IV FLUSH LINE; Start 10/16/16 at 11:00 Hydromorphone HCl (Dilaudid) 0.5 mg Q2 PRN IV PAIN Last administered on 14:10; Admin Dose 0.5 MG; Start 10/16/16 at 15:00 Diagnostic Test (Pha) (Accu-Chek) 1 ea Q12 XX Last administered on 10/17/16 09 :51; Admin Dose 1 EA; Start 10/17/16 at 09:51 ELVIN TEIXEIRA Oct 17, 2016 15:48
[2016-10-17] MEDS: TPN 1,000 ML IV SCH (18:43)
[2016-10-17] MEDS: FAT EMULSION 20% 250 ML IV SCH (18:50)
[2016-10-17 19:20] VITALS: BP 129/83; RESP 18
--- NOTE | 2016-10-17 22:18 | PN ---
Date/Time of Note Date/Time of Note DATE: 10/17/16 TIME: 22:15 Assessment/Plan VTE Prophylaxis VTE Prophylaxis Intervention: SCD's Lines/Catheters IV Catheter Type (from Nrs): PICC Line Central line still needed: Yes Urinary Cath still in place: Yes Reason Cath still needed: urinary retention Assessment/Plan Chief Complaint/Hosp Course stage IV endometrial cancer Problems: Assessment/Plan A- doing well P- check NGT residual and possibly d/c tomorrow possibly d/c drains 2-3 d Subjective 24 Hr Interval Summary Free Text/Dictation Possible flatus and less gas pains. Exam/Review of Systems Vital Signs Vitals Vital Signs Date Time Temp Pulse Resp B/P Pulse Ox O2 Delivery O2 Flow Rate FiO2 10/17/16 19:20 98.1 87 18 129/83 95 10/15/16 08:33 Room Air Intake and Output 10/16/16 10/16/16 10/17/16 15:00 23:00 07:00 Intake Total 300.83 ml 1279.17 ml Output Total 850 ml 1180 ml Balance -549.17 ml 99.17 ml Exam Resp- clear CVS- NSR Abd- soft and NT Ext- NT no edema Results Result Diagram: 10/17/16 0426 10/17/16 0420 Results 24 hrs Laboratory Tests Test 10/17/16 04:20 10/17/16 04:26 10/17/16 04:28 10/17/16 10:16 Sodium Level 139 Potassium Level 3.3 L Chloride Level 102 Carbon Dioxide Level 30 Anion Gap 10 Blood Urea Nitrogen 8 Creatinine 0.50 Glucose Level 131 Calcium Level 8.0 L Total Bilirubin 0.1 L Direct Bilirubin 0.00 Indirect Bilirubin 0.1 Aspartate Amino Transf (AST/SGOT) 33 Alanine Aminotransferase (ALT/SGPT) 37 Alkaline Phosphatase 75 Total Protein 5.3 L Albumin 2.5 L Globulin 2.80 Albumin/Globulin Ratio 0.89 White Blood Count 11.5 #H Red Blood Count 3.66 L Hemoglobin 10.7 L Hematocrit 32.4 L Mean Corpuscular Volume 88.5 Mean Corpuscular Hemoglobin 29.2 Mean Corpuscular Hemoglobin Concent 33.0 Red Cell Distribution Width 12.6 Platelet Count 473 H Mean Platelet Volume 8.8 Neutrophils % 84.8 H Lymphocytes % 6.7 L Monocytes % 6.0 Eosinophils % 2.0 Basophils % 0.1 Nucleated Red Blood Cells % 0.0 Neutrophils # 9.7 H Lymphocytes # 0.8 Monocytes # 0.7 Eosinophils # 0.2 Basophils # 0.0 Nucleated Red Blood Cells # 0.0 Prothrombin Time 14.2 Prothrombin Time Ratio 1.1 INR International Normalized Ratio 1.10 Activated Partial Thromboplast Time 29.9 Bedside Glucose 135 Test 10/17/16 18:37 Triglycerides Level 131 Medications Medications Current Medications Potassium Cl/ Dextrose/Lact Ringer's (D5-Lr + KCl 20 Meq) 1,000 ml @ 40 mls/hr Q24H IV Last administered on 10/17/16 04:56; Admin Dose 40 MLS/HR; Start 10/10 at 17:00 Pantoprazole (Protonix Iv) 40 mg DAILY@06 IV Last administered on 10/17/16 06: 25; Admin Dose 40 MG; Start 10/11/16 at 06:00 Dimethicone (Blistex Lip [place]) 1 applic Q2H PRN TOP CHAPPED LIPS; Start at 09:30 Diphenhydramine HCl (Benadryl) 25 mg Q6H PRN IV ITCHING Last administered on 00:58; Admin Dose 25 MG; Start 10/11/16 at 16:19 Hydralazine HCl 10 mg 10 mg Q4H PRN IV ELEVATED BLOOD PRESSURE; Start 10/15/16 at 10:00 Acetaminophen 100 ml @ 400 mls/hr Q6H PRN IVPB HEADACHE Last administered on 09:58; Admin Dose 400 MLS/HR; Start 10/15/16 at 10:00 Total Parenteral Nutrition 1,000 ml @ 40 mls/hr Q24H IV Last administered on 18:43; Admin Dose 40 MLS/HR; Start 10/15/16 at 20:00 Fat Emulsion Intravenous (Liposyn Ii 20%) 250 ml @ 20.833 mls/ hr DAILY@16 IV Last administered on 10/17/16 18:50; Admin Dose 20.833 MLS/HR; Start 10/15/16 at 20:00 IV Flush (NS 10 ml) 10 ml PRN PRN IV FLUSH LINE; Start 10/16/16 at 11:00 Hydromorphone HCl (Dilaudid) 0.5 mg Q2 PRN IV PAIN Last administered on 18:43; Admin Dose 0.5 MG; Start 10/16/16 at 15:00 Diagnostic Test (Pha) (Accu-Chek) 1 ea Q12 XX Last administered on 10/17/16 09 :51; Admin Dose 1 EA; Start 10/17/16 at 09:51 NUPUR RODRÍGUEZ MD Oct 17, 2016 22:18
[2016-10-18] MEDS: HYDROmorphONE 1 MG/ML SYG IV PRN ×7 (01:42→21:43)
[2016-10-18] MEDS: PANTOPRAZOLE 40 MG INJ IV SCH (05:11)
[2016-10-18 05:12] LABS: ADD SCAN DIFF NO
[2016-10-18 05:17] LABS: BASOPHILS % 0.2 % (0.0-2.0); EOSINOPHILS # 0.4 10^3/ul (0.0-0.5); EOSINOPHILS % 2.9 % (0.0-7.0); HEMATOCRIT 32.3 % (37.0-47.0); HEMOGLOBIN 10.6 g/dl (12.0-16.0); LYMPHOCYTES # 0.8 10^3/ul (0.8-2.9); LYMPHOCYTES % 6.5 % (15.0-51.0); MEAN CORPUSCULAR HEMOGLOBIN 29.4 pg (29.0-33.0); MEAN CORPUSCULAR HGB CONC 32.8 g/dl (32.0-37.0); MEAN CORPUSCULAR VOLUME 89.5 fl (82.0-101.0); MONOCYTE # 0.7 10^3/ul (0.3-0.9); NEUTROPHIL # 10.2 10^3/ul (1.6-7.5); NEUTROPHILS % 84.1 % (39.0-77.0); PLATELET COUNT 452 10^3/UL (140-415); RED BLOOD COUNT 3.61 10^6/ul (4.20-5.40); RED CELL DISTRIBUTION WIDTH 12.8 % (11.5-14.5); WHITE BLOOD COUNT 12.1 10^3/ul (4.8-10.8)
[2016-10-18 05:39] LABS: CALCIUM 7.9 mg/dl (8.4-10.2); CREATININE 0.52 mg/dl (0.44-1.00); POTASSIUM 3.7 mmol/L (3.5-5.1)
[2016-10-18] MEDS: D5-LR + KCL 20 MEQ 1,000 ML IV SCH (07:00)
[2016-10-18] MEDS: ACCU-CHEK XX SCH ×2 (08:22→20:21)
[2016-10-18 09:02] VITALS: BP 151/81; RESP 18
--- NOTE | 2016-10-18 12:16 | CONS ---
Date/Time of Note Date/Time of Note DATE: 10/18/16 TIME: 12:14 Assessment/Plan Assessment/Plan Chief Complaint/Hosp Course The patient is a 56-year-old female with recent diagnosis of endometrial cancer on 09/17/2016 by endometrial biopsy. The patient was diagnosed with stage IV endometrial cancer. She underwent massive surgical procedure with CYNDI/ BSO and recto-sigmoid en-bloc with low anastomosis per Dr. Bueno on 10/11/16. She had extensive positive retroperitoneal lymph nodes removed but the confluence of disease makes her classified as millimeter residual disease. - Per Dr. Bueno, plan for carbo/taxol in about 8 days. - Continue post-op care. Plan to mobilize and await GI function, TPN for nutrition. - Discussed with Dr. Bueno, will hold off on CT scan at this time as would be difficult to tell the difference between reactive tissue postop and metastatic disease. Additionally, oral contrast could harm her anastomosis. Prior CT A/P with and without contrast 10/02/16 demonstrated metastatic spread with bilateral right greater than left adnexal lesions, with areas of infiltration and nodularity within the right paracolic gutter and transverse mesocolon. - PICC line placed for TPN, can also use for chemotherapy Will continue to follow. Problems: Consultation Date/Type/Reason Admit Date/Time Oct 10, 2016 at 09:46 Initial Consult Date 10/12/16 Type of Consultation: Oncology 24 HR Interval Summary Free Text/Dictation Patient doing well, no complaints. Exam/Review of Systems Vital Signs Vitals Vital Signs Date Time Temp Pulse Resp B/P Pulse Ox O2 Delivery O2 Flow Rate FiO2 10/18/16 09:02 98.0 81 18 151/81 98 10/15/16 08:33 Room Air Intake and Output 10/17/16 10/17/16 10/18/16 15:00 23:00 07:00 Intake Total 440 ml 1130 ml Output Total 1620 ml 1270 ml Balance -1180 ml -140 ml Exam Constitutional: alert Head: other (NG tube in place) Neck: supple Respiratory: clear to auscultation Cardiovascular: other (tachycardic, regular rhythm) Gastrointestinal: other (dressings c/d/i), tender Results Result Diagram: 10/18/16 0437 10/18/16 0437 Results 24 hrs Laboratory Tests Test 10/17/16 18:37 10/18/16 01:28 10/18/16 04:37 10/18/16 08:25 Triglycerides Level 131 Bedside Glucose 133 124 White Blood Count 12.1 H Red Blood Count 3.61 L Hemoglobin 10.6 L Hematocrit 32.3 L Mean Corpuscular Volume 89.5 Mean Corpuscular Hemoglobin 29.4 Mean Corpuscular Hemoglobin Concent 32.8 Red Cell Distribution Width 12.8 Platelet Count 452 H Mean Platelet Volume 9.0 Neutrophils % 84.1 H Lymphocytes % 6.5 L Monocytes % 6.0 Eosinophils % 2.9 Basophils % 0.2 Nucleated Red Blood Cells % 0.0 Neutrophils # 10.2 H Lymphocytes # 0.8 Monocytes # 0.7 Eosinophils # 0.4 Basophils # 0.0 Nucleated Red Blood Cells # 0.0 Sodium Level 137 Potassium Level 3.7 Chloride Level 106 Carbon Dioxide Level 29 Anion Gap 6 L Blood Urea Nitrogen 7 Creatinine 0.52 Glucose Level 144 Calcium Level 7.9 L Medications Medications Current Medications Potassium Cl/ Dextrose/Lact Ringer's (D5-Lr + KCl 20 Meq) 1,000 ml @ 40 mls/hr Q24H IV Last administered on 10/18/16 07:00; Admin Dose 40 MLS/HR; Start 10/10 at 17:00 Pantoprazole (Protonix Iv) 40 mg DAILY@06 IV Last administered on 10/18/16 05: 11; Admin Dose 40 MG; Start 10/11/16 at 06:00 Dimethicone (Blistex Lip [place]) 1 applic Q2H PRN TOP CHAPPED LIPS; Start at 09:30 Diphenhydramine HCl (Benadryl) 25 mg Q6H PRN IV ITCHING Last administered on 00:58; Admin Dose 25 MG; Start 10/11/16 at 16:19 Hydralazine HCl 10 mg 10 mg Q4H PRN IV ELEVATED BLOOD PRESSURE; Start 10/15/16 at 10:00 Acetaminophen 100 ml @ 400 mls/hr Q6H PRN IVPB HEADACHE Last administered on 09:58; Admin Dose 400 MLS/HR; Start 10/15/16 at 10:00 Total Parenteral Nutrition 1,000 ml @ 40 mls/hr Q24H IV Last administered on 18:43; Admin Dose 40 MLS/HR; Start 10/15/16 at 20:00 Fat Emulsion Intravenous (Liposyn Ii 20%) 250 ml @ 20.833 mls/ hr DAILY@16 IV Last administered on 10/17/16 18:50; Admin Dose 20.833 MLS/HR; Start 10/15/16 at 20:00 IV Flush (NS 10 ml) 10 ml PRN PRN IV FLUSH LINE; Start 10/16/16 at 11:00 Hydromorphone HCl (Dilaudid) 0.5 mg Q2 PRN IV PAIN Last administered on 11:02; Admin Dose 0.5 MG; Start 10/16/16 at 15:00 Diagnostic Test (Pha) (Accu-Chek) 1 ea Q12 XX Last administered on 10/18/16 08 :22; Admin Dose 1 EA; Start 10/17/16 at 09:51 LINDA SWANSON MD Oct 18, 2016 12:16
[2016-10-18] MEDS: DIPHENHYDRAMINE 50 MG INJ IV PRN (14:19)
[2016-10-18] MEDS: FAT EMULSION 20% 250 ML IV SCH (16:33)
--- NOTE | 2016-10-18 19:35 | PN ---
Date/Time of Note Date/Time of Note DATE: 10/18/16 TIME: 19:31 Assessment/Plan VTE Prophylaxis VTE Prophylaxis Intervention: other Lines/Catheters [facility] ([facility] PICC Line Central line still needed: Yes Urinary Cath still in place: Yes Reason Cath still needed: urinary retention Assessment/Plan Assessment/Plan - Stage IV endometrial cancer - per surgery recommendations. - status post surgical procedure with CYNDI/BSO and recto-sigmoid en-bloc with low anastomosis by Dr. Bueno on 10/11. - Continue n.p.o. continue TPN and lipids per concrete layer recommendation. - Hypertension. Continue hydralazine as needed for systolic blood pressure above 170. - Dyslipidemia. We will resume statins when patient is able to tolerate p.o. - Gastritis. Continue Protonix. Further recommendations based on clinical course. Anticipate discharge tomorrow if stable and patient will FU with surgery as recommended Plan of care discussed with Dr. Richardson. Subjective 24 Hr Interval Summary Free Text/Dictation nad, alert/awake, feesl better, Remains on TPN, NGT - no residual reported, fc in place, BJ intact.- DDI No fever, dw staff. Constitutional: improved, requiring IVF Eyes: no complaints ENT: no complaints Cardiovascular: no complaints Gastrointestinal: no complaints Genitourinary: no complaints Musculoskeletal: no complaints Skin: no complaints Neurologic: no complaints ( ) Exam/Review of Systems Vital Signs Vitals Vital Signs Date Time Temp Pulse Resp B/P Pulse Ox O2 Delivery O2 Flow Rate FiO2 10/18/16 09:02 98.0 81 18 151/81 98 10/15/16 08:33 Room Air Intake and Output 10/17/16 10/17/16 10/18/16 15:00 23:00 07:00 Intake Total 440 ml 1130 ml Output Total 1620 ml 1270 ml Balance -1180 ml -140 ml Exam Constitutional: alert, oriented, well developed Psych: no complaints Head: atraumatic Eyes: EOMI, nl sclera ENMT: nl external ears & nose Neck: non-tender Respiratory: clear to auscultation Cardiovascular: nl pulses Gastrointestinal: non-tender, soft Musculoskeletal: nl extremities to inspection Extremities: normal pulses Neurological: nl mental status, nl speech, other Skin: other Lymph: nontender Results Result Diagram: 10/18/16 0437 10/18/16 0437 Results 24 hrs Laboratory Tests Test 10/18/16 01:28 10/18/16 04:37 10/18/16 08:25 Bedside Glucose 133 124 White Blood Count 12.1 H Red Blood Count 3.61 L Hemoglobin 10.6 L Hematocrit 32.3 L Mean Corpuscular Volume 89.5 Mean Corpuscular Hemoglobin 29.4 Mean Corpuscular Hemoglobin Concent 32.8 Red Cell Distribution Width 12.8 Platelet Count 452 H Mean Platelet Volume 9.0 Neutrophils % 84.1 H Lymphocytes % 6.5 L Monocytes % 6.0 Eosinophils % 2.9 Basophils % 0.2 Nucleated Red Blood Cells % 0.0 Neutrophils # 10.2 H Lymphocytes # 0.8 Monocytes # 0.7 Eosinophils # 0.4 Basophils # 0.0 Nucleated Red Blood Cells # 0.0 Sodium Level 137 Potassium Level 3.7 Chloride Level 106 Carbon Dioxide Level 29 Anion Gap 6 L Blood Urea Nitrogen 7 Creatinine 0.52 Glucose Level 144 Calcium Level 7.9 L Medications Medications Current Medications Potassium Cl/ Dextrose/Lact Ringer's (D5-Lr + KCl 20 Meq) 1,000 ml @ 40 mls/hr Q24H IV Last administered on 10/18/16 07:00; Admin Dose 40 MLS/HR; Start 10/10 at 17:00 Pantoprazole (Protonix Iv) 40 mg DAILY@06 IV Last administered on 10/18/16 05: 11; Admin Dose 40 MG; Start 10/11/16 at 06:00 Dimethicone (Blistex Lip [place]) 1 applic Q2H PRN TOP CHAPPED LIPS; Start at 09:30 Diphenhydramine HCl (Benadryl) 25 mg Q6H PRN IV ITCHING Last administered on 14:19; Admin Dose 25 MG; Start 10/11/16 at 16:19 Hydralazine HCl 10 mg 10 mg Q4H PRN IV ELEVATED BLOOD PRESSURE; Start 10/15/16 at 10:00 Acetaminophen 100 ml @ 400 mls/hr Q6H PRN IVPB HEADACHE Last administered on 09:58; Admin Dose 400 MLS/HR; Start 10/15/16 at 10:00 Total Parenteral Nutrition 1,000 ml @ 40 mls/hr Q24H IV Last administered on 18:43; Admin Dose 40 MLS/HR; Start 10/15/16 at 20:00 Fat Emulsion Intravenous (Liposyn Ii 20%) 250 ml @ 20.833 mls/ hr DAILY@16 IV Last administered on 10/18/16 16:33; Admin Dose 20.833 MLS/HR; Start 10/15/16 at 20:00 IV Flush (NS 10 ml) 10 ml PRN PRN IV FLUSH LINE; Start 10/16/16 at 11:00 Hydromorphone HCl (Dilaudid) 0.5 mg Q2 PRN IV PAIN Last administered on 18:31; Admin Dose 0.5 MG; Start 10/16/16 at 15:00 Diagnostic Test (Pha) (Accu-Chek) 1 ea Q12 XX Last administered on 10/18/16 08 :22; Admin Dose 1 EA; Start 10/17/16 at 09:51 LATRICIA GABRIEL Oct 18, 2016 19:35
[2016-10-18 19:50] VITALS: BP 135/78; RESP 18
[2016-10-18] MEDS: TPN 1,000 ML IV SCH (19:58)
--- NOTE | 2016-10-18 20:33 | PN ---
Date/Time of Note Date/Time of Note DATE: 10/18/16 TIME: 20:29 Assessment/Plan VTE Prophylaxis VTE Prophylaxis Intervention: SCD's Lines/Catheters IV Catheter Type (from Nrs): PICC Line Central line still needed: Yes Urinary Cath still in place: Yes Reason Cath still needed: urinary retention Assessment/Plan Chief Complaint/Hosp Course stage IV endometrial cancer Problems: Assessment/Plan A- improved but please note IMPOSSIBLE to d/c tomorrow MUST advance diet gradually due to high risk low anastamosis and nodes that were adherent to duodenum P- clear liquids a.m. and anticipate chemo 2-3 d later Subjective 24 Hr Interval Summary Free Text/Dictation + flatus, feels better and tolerating NGT out. Exam/Review of Systems Vital Signs Vitals Vital Signs Date Time Temp Pulse Resp B/P Pulse Ox O2 Delivery O2 Flow Rate FiO2 10/18/16 09:02 98.0 81 18 151/81 98 10/15/16 08:33 Room Air Intake and Output 10/17/16 10/17/16 10/18/16 15:00 23:00 07:00 Intake Total 440 ml 1130 ml Output Total 1620 ml 1270 ml Balance -1180 ml -140 ml Exam Respiratory: normal air movement Cardiovascular: nl pulses, regular rate and rhythm Gastrointestinal: non-tender Musculoskeletal: nl extremities to inspection, nl gait and stance Results Result Diagram: 10/18/16 0437 10/18/16 0437 Results 24 hrs Laboratory Tests Test 10/18/16 01:28 10/18/16 04:37 10/18/16 08:25 10/18/16 20:16 Bedside Glucose 133 124 115 White Blood Count 12.1 H Red Blood Count 3.61 L Hemoglobin 10.6 L Hematocrit 32.3 L Mean Corpuscular Volume 89.5 Mean Corpuscular Hemoglobin 29.4 Mean Corpuscular Hemoglobin Concent 32.8 Red Cell Distribution Width 12.8 Platelet Count 452 H Mean Platelet Volume 9.0 Neutrophils % 84.1 H Lymphocytes % 6.5 L Monocytes % 6.0 Eosinophils % 2.9 Basophils % 0.2 Nucleated Red Blood Cells % 0.0 Neutrophils # 10.2 H Lymphocytes # 0.8 Monocytes # 0.7 Eosinophils # 0.4 Basophils # 0.0 Nucleated Red Blood Cells # 0.0 Sodium Level 137 Potassium Level 3.7 Chloride Level 106 Carbon Dioxide Level 29 Anion Gap 6 L Blood Urea Nitrogen 7 Creatinine 0.52 Glucose Level 144 Calcium Level 7.9 L Medications Medications Current Medications Potassium Cl/ Dextrose/Lact Ringer's (D5-Lr + KCl 20 Meq) 1,000 ml @ 40 mls/hr Q24H IV Last administered on 10/18/16 07:00; Admin Dose 40 MLS/HR; Start 10/10 at 17:00 Pantoprazole (Protonix Iv) 40 mg DAILY@06 IV Last administered on 10/18/16 05: 11; Admin Dose 40 MG; Start 10/11/16 at 06:00 Dimethicone (Blistex Lip [place]) 1 applic Q2H PRN TOP CHAPPED LIPS; Start at 09:30 Diphenhydramine HCl (Benadryl) 25 mg Q6H PRN IV ITCHING Last administered on 14:19; Admin Dose 25 MG; Start 10/11/16 at 16:19 Hydralazine HCl 10 mg 10 mg Q4H PRN IV ELEVATED BLOOD PRESSURE; Start 10/15/16 at 10:00 Acetaminophen 100 ml @ 400 mls/hr Q6H PRN IVPB HEADACHE Last administered on 09:58; Admin Dose 400 MLS/HR; Start 10/15/16 at 10:00 Total Parenteral Nutrition 1,000 ml @ 40 mls/hr Q24H IV Last administered on 19:58; Admin Dose 40 MLS/HR; Start 10/15/16 at 20:00 Fat Emulsion Intravenous (Liposyn Ii 20%) 250 ml @ 20.833 mls/ hr DAILY@16 IV Last administered on 10/18/16 16:33; Admin Dose 20.833 MLS/HR; Start 10/15/16 at 20:00 IV Flush (NS 10 ml) 10 ml PRN PRN IV FLUSH LINE; Start 10/16/16 at 11:00 Hydromorphone HCl (Dilaudid) 0.5 mg Q2 PRN IV PAIN Last administered on 18:31; Admin Dose 0.5 MG; Start 10/16/16 at 15:00 Diagnostic Test (Pha) (Accu-Chek) 1 ea Q12 XX Last administered on 10/18/16t 08 :22; Admin Dose 1 EA; Start 10/17/16 at 09:51 NUPUR RODRÍGUEZ MD Oct 18, 2016 20:33
[2016-10-19] MEDS: D5-LR + KCL 20 MEQ 1,000 ML IV SCH (05:05)
[2016-10-19] MEDS: PANTOPRAZOLE 40 MG INJ IV SCH (05:06)
[2016-10-19 05:24] LABS: ADD SCAN DIFF NO
[2016-10-19 05:32] LABS: BASOPHILS % 0.3 % (0.0-2.0); EOSINOPHILS # 0.4 10^3/ul (0.0-0.5); EOSINOPHILS % 3.7 % (0.0-7.0); HEMATOCRIT 33.4 % (37.0-47.0); HEMOGLOBIN 10.7 g/dl (12.0-16.0); LYMPHOCYTES # 0.6 10^3/ul (0.8-2.9); MEAN CORPUSCULAR HEMOGLOBIN 28.4 pg (29.0-33.0); MEAN CORPUSCULAR VOLUME 88.6 fl (82.0-101.0); MEAN PLATELET VOLUME 8.9 fl (7.4-10.4); MONOCYTE # 0.7 10^3/ul (0.3-0.9); MONOCYTES % 6.6 % (0.0-11.0); NEUTROPHIL # 8.8 10^3/ul (1.6-7.5); NEUTROPHILS % 82.9 % (39.0-77.0); PLATELET COUNT 433 10^3/UL (140-415); RED BLOOD COUNT 3.77 10^6/ul (4.20-5.40); RED CELL DISTRIBUTION WIDTH 12.9 % (11.5-14.5); WHITE BLOOD COUNT 10.6 10^3/ul (4.8-10.8)
[2016-10-19 05:37] LABS: POTASSIUM 3.4 mmol/L (3.5-5.1)
[2016-10-19 05:39] LABS: CREATININE 0.54 mg/dl (0.44-1.00)
[2016-10-19 05:40] LABS: CALCIUM 8.1 mg/dl (8.4-10.2)
[2016-10-19 07:30] VITALS: BP 134/80; RESP 20
[2016-10-19] MEDS: ACCU-CHEK XX SCH ×2 (09:13→21:39)
--- NOTE | 2016-10-19 15:04 | CONS ---
Date/Time of Note Date/Time of Note DATE: 10/19/16 TIME: 15:01 Assessment/Plan Assessment/Plan Chief Complaint/Hosp Course The patient is a 56-year-old female with recent diagnosis of endometrial cancer on 09/17/2016 by endometrial biopsy. The patient was diagnosed with stage IV endometrial cancer. She underwent massive surgical procedure with CYNDI/ BSO and recto-sigmoid en-bloc with low anastomosis per Dr. Bueno on 10/11/16. She had extensive positive retroperitoneal lymph nodes removed but the confluence of disease makes her classified as millimeter residual disease. - Per Dr. Bueno, plan for chemo in 2-3 days. Path report shows metastatic carcinosarcoma, will consider ifosfamide/taxol or gem/tax. Will discuss with Dr. Bueno. - Continue post-op care. Plan to mobilize and await GI function, TPN for nutrition. - Discussed with Dr. Bueno, will hold off on CT scan at this time as would be difficult to tell the difference between reactive tissue postop and metastatic disease. Additionally, oral contrast could harm her anastomosis. Prior CT A/P with and without contrast 10/02/16 demonstrated metastatic spread with bilateral right greater than left adnexal lesions, with areas of infiltration and nodularity within the right paracolic gutter and transverse mesocolon. - PICC line placed for TPN, can also use for chemotherapy Will continue to follow. Problems: Consultation Date/Type/Reason Admit Date/Time Oct 10, 2016 at 09:46 Initial Consult Date 10/12/16 Type of Consultation: Oncology 24 HR Interval Summary Free Text/Dictation Patient doing well, no complaints. NGT has been removed. She states that she is tolerating clears. Exam/Review of Systems Vital Signs Vitals Vital Signs Date Time Temp Pulse Resp B/P Pulse Ox O2 Delivery O2 Flow Rate FiO2 10/19/16 07:30 98.8 96 20 134/80 96 10/15/16 08:33 Room Air Intake and Output 10/18/16 10/18/16 10/19/16 15:00 23:00 07:00 Intake Total 600 ml 1250 ml Output Total 50 ml 1000 ml Balance 550 ml 250 ml Exam Constitutional: alert, oriented Psych: no complaints Head: atraumatic, normocephalic Eyes: nl conjunctiva Neck: supple Respiratory: clear to auscultation Cardiovascular: regular rate and rhythm Gastrointestinal: non-tender, other (dressings c/d/i), soft Musculoskeletal: nl extremities to inspection Results Result Diagram: 10/19/16 0420 10/19/16 0420 Results 24 hrs Laboratory Tests Test 10/18/16 20:16 10/19/16 04:20 10/19/16 10:18 Bedside Glucose 115 112 White Blood Count 10.6 Red Blood Count 3.77 L Hemoglobin 10.7 L Hematocrit 33.4 L Mean Corpuscular Volume 88.6 Mean Corpuscular Hemoglobin 28.4 L Mean Corpuscular Hemoglobin Concent 32.0 Red Cell Distribution Width 12.9 Platelet Count 433 H Mean Platelet Volume 8.9 Neutrophils % 82.9 H Lymphocytes % 6.0 L Monocytes % 6.6 Eosinophils % 3.7 Basophils % 0.3 Nucleated Red Blood Cells % 0.0 Neutrophils # 8.8 H Lymphocytes # 0.6 L Monocytes # 0.7 Eosinophils # 0.4 Basophils # 0.0 Nucleated Red Blood Cells # 0.0 Sodium Level 140 Potassium Level 3.4 L Chloride Level 102 Carbon Dioxide Level 29 Anion Gap 12 Blood Urea Nitrogen 9 Creatinine 0.54 Glucose Level 117 Calcium Level 8.1 L Medications Medications Current Medications Potassium Cl/ Dextrose/Lact Ringer's (D5-Lr + KCl 20 Meq) 1,000 ml @ 40 mls/hr Q24H IV Last administered on 10/19/16 05:05; Admin Dose 40 MLS/HR; Start 10/10 at 17:00 Pantoprazole (Protonix Iv) 40 mg DAILY@06 IV Last administered on 10/19/16 05: 06; Admin Dose 40 MG; Start 10/11/16 at 06:00 Dimethicone (Blistex Lip [place]) 1 applic Q2H PRN TOP CHAPPED LIPS; Start at 09:30 Diphenhydramine HCl (Benadryl) 25 mg Q6H PRN IV ITCHING Last administered on 14:19; Admin Dose 25 MG; Start 10/11/16 at 16:19 Hydralazine HCl 10 mg 10 mg Q4H PRN IV ELEVATED BLOOD PRESSURE; Start 10/15/16 at 10:00 Acetaminophen 100 ml @ 400 mls/hr Q6H PRN IVPB HEADACHE Last administered on 09:58; Admin Dose 400 MLS/HR; Start 10/15/16 at 10:00 Total Parenteral Nutrition 1,000 ml @ 40 mls/hr Q24H IV Last administered on 19:58; Admin Dose 40 MLS/HR; Start 10/15/16 at 20:00 Fat Emulsion Intravenous (Liposyn Ii 20%) 250 ml @ 20.833 mls/ hr DAILY@16 IV Last administered on 10/18/16 16:33; Admin Dose 20.833 MLS/HR; Start 10/15/16 at 20:00 IV Flush (NS 10 ml) 10 ml PRN PRN IV FLUSH LINE; Start 10/16/16 at 11:00 Hydromorphone HCl (Dilaudid) 0.5 mg Q2 PRN IV PAIN Last administered on 21:43; Admin Dose 0.5 MG; Start 10/16/16 at 15:00 Diagnostic Test (Pha) (Accu-Chek) 1 ea Q12 XX Last administered on 10/19/16 09 :13; Admin Dose 1 EA; Start 10/17/16 at 09:51 TOLINDA MD Oct 19, 2016 15:04
[2016-10-19] MEDS: FAT EMULSION 20% 250 ML IV SCH (16:25)
--- NOTE | 2016-10-19 18:52 | PN ---
Date/Time of Note Date/Time of Note DATE: 10/19/16 TIME: 18:51 Assessment/Plan VTE Prophylaxis VTE Prophylaxis Intervention: SCD's Lines/Catheters IV Catheter Type (from Nrs): PICC Line Central line still needed: Yes Urinary Cath still in place: Yes Reason Cath still needed: urinary retention Assessment/Plan Chief Complaint/Hosp Course Assessment and plan: - Stage IV endometrial cancer, status post surgical procedure with CYNDI/BSO and recto-sigmoid en-bloc with low anastomosis by Dr. Bueno on 10/11. Continue n.p.o. continue TPN and lipids per personal banker recommendation. continue to follow-up surgery recommendations. - Hypertension. Continue hydralazine as needed for systolic blood pressure above 170. - Dyslipidemia. We will resume statins when patient is able to tolerate p.o. - Gastritis. Continue Protonix. Further recommendations based on clinical course. Plan of care discussed with Dr. Richardson. Problems: Subjective 24 Hr Interval Summary Free Text/Dictation Patient started on clear liquid diet, tolerates it well. Exam/Review of Systems Vital Signs Vitals Vital Signs Date Time Temp Pulse Resp B/P Pulse Ox O2 Delivery O2 Flow Rate FiO2 10/19/16 07:30 98.8 96 20 134/80 96 10/15/16 08:33 Room Air Intake and Output 10/18/16 10/18/16 10/19/16 15:00 23:00 07:00 Intake Total 600 ml 1250 ml Output Total 50 ml 1000 ml Balance 550 ml 250 ml Exam Constitutional: alert, oriented Psych: no complaints Head: normocephalic Eyes: nl conjunctiva ENMT: nl external ears & nose Neck: non-tender, supple Respiratory: clear to auscultation, normal air movement Cardiovascular: nl pulses, regular rate and rhythm Gastrointestinal: other (Status post surgery, with dry clean and intact dressing and left lower quadrant BJ.), soft Musculoskeletal: nl extremities to inspection Extremities: normal pulses Neurological: [employer] II-XII intact Results Result Diagram: 10/19/1641910/19/16 0420 Results 24 hrs Laboratory Tests Test 10/18/16 20:16 10/19/16 04:20 10/19/16 10:18 Bedside Glucose 115 112 White Blood Count 10.6 Red Blood Count 3.77 L Hemoglobin 10.7 L Hematocrit 33.4 L Mean Corpuscular Volume 88.6 Mean Corpuscular Hemoglobin 28.4 L Mean Corpuscular Hemoglobin Concent 32.0 Red Cell Distribution Width 12.9 Platelet Count 433 H Mean Platelet Volume 8.9 Neutrophils % 82.9 H Lymphocytes % 6.0 L Monocytes % 6.6 Eosinophils % 3.7 Basophils % 0.3 Nucleated Red Blood Cells % 0.0 Neutrophils # 8.8 H Lymphocytes # 0.6 L Monocytes # 0.7 Eosinophils # 0.4 Basophils # 0.0 Nucleated Red Blood Cells # 0.0 Sodium Level 140 Potassium Level 3.4 L Chloride Level 102 Carbon Dioxide Level 29 Anion Gap 12 Blood Urea Nitrogen 9 Creatinine 0.54 Glucose Level 117 Calcium Level 8.1 L Medications Medications Current Medications Potassium Cl/ Dextrose/Lact Ringer's (D5-Lr + KCl 20 Meq) 1,000 ml @ 40 mls/hr Q24H IV Last administered on 10/19/16 05:05; Admin Dose 40 MLS/HR; Start 10/10 at 17:00 Pantoprazole (Protonix Iv) 40 mg DAILY@06 IV Last administered on 10/19/16 05: 06; Admin Dose 40 MG; Start 10/11/16 at 06:00 Dimethicone (Blistex Lip [place]) 1 applic Q2H PRN TOP CHAPPED LIPS; Start at 09:30 Diphenhydramine HCl (Benadryl) 25 mg Q6H PRN IV ITCHING Last administered on 14:19; Admin Dose 25 MG; Start 10/11/16 at 16:19 Hydralazine HCl 10 mg 10 mg Q4H PRN IV ELEVATED BLOOD PRESSURE; Start 10/15/16 at 10:00 Acetaminophen 100 ml @ 400 mls/hr Q6H PRN IVPB HEADACHE Last administered on 09:58; Admin Dose 400 MLS/HR; Start 10/15/16 at 10:00 Total Parenteral Nutrition 1,000 ml @ 40 mls/hr Q24H IV Last administered on 19:58; Admin Dose 40 MLS/HR; Start 10/15/16 at 20:00 Fat Emulsion Intravenous (Liposyn Ii 20%) 250 ml @ 20.833 mls/ hr DAILY@16 IV Last administered on 10/19/16 16:25; Admin Dose 20.833 MLS/HR; Start 10/15/16 at 20:00 IV Flush (NS 10 ml) 10 ml PRN PRN IV FLUSH LINE; Start 10/16/16 at 11:00 Hydromorphone HCl (Dilaudid) 0.5 mg Q2 PRN IV PAIN Last administered on 21:43; Admin Dose 0.5 MG; Start 10/16/16 at 15:00 Diagnostic Test (Pha) (Accu-Chek) 1 ea Q12 XX Last administered on 10/19/16 09 :13; Admin Dose 1 EA; Start 10/17/16 at 09:51 ELVIN TEIXEIRA Oct 19, 2016 18:52
[2016-10-19 19:28] VITALS: BP 145/80; RESP 22
[2016-10-19] MEDS: TPN 1,000 ML IV SCH (21:25)
[2016-10-19] MEDS: HYDROmorphONE 1 MG/ML SYG IV PRN (21:55)
--- NOTE | 2016-10-19 22:58 | PN ---
Date/Time of Note Date/Time of Note DATE: 10/19/16 TIME: 22:55 Assessment/Plan VTE Prophylaxis VTE Prophylaxis Intervention: SCD's Lines/Catheters IV Catheter Type (from Nrsg): PICC Line Central line still needed: Yes Urinary Cath still in place: Yes Reason Cath still needed: urinary retention Assessment/Plan Chief Complaint/Hosp Course stage IV endometrial cancer Problems: Assessment/Plan A- doing well P- adv to full liq dinner tomorow and possibly d/c [place] Sat or Sun Subjective 24 Hr Interval Summary Free Text/Dictation less pain and terence clear liq. + flatu. Exam/Review of Systems Vital Signs Vitals Vital Signs Date Time Temp Pulse Resp B/P Pulse Ox O2 Delivery O2 Flow Rate FiO2 10/19/16 19:28 98.4 94 22 145/80 98 10/15/16 08:33 Room Air Intake and Output 10/18/16 10/18/16 10/19/16 15:00 23:00 07:00 Intake Total 600 ml 1250 ml Output Total 50 ml 1000 ml Balance 550 ml 250 ml Exam Respiratory: clear to auscultation, normal air movement Cardiovascular: nl pulses, regular rate and rhythm Gastrointestinal: non-tender, soft Extremities: calf tenderness, normal pulses, No clubbing, No cyanosis, No edema, No other, No palpable cord, No pitting pedal edema, No tenderness Results Result Diagram: 10/19/16 0420 10/19/16 0420 Results 24 hrs Laboratory Tests Test 10/19/16 04:20 10/19/16 10:18 10/19/16 21:31 White Blood Count 10.6 Red Blood Count 3.77 L Hemoglobin 10.7 L Hematocrit 33.4 L Mean Corpuscular Volume 88.6 Mean Corpuscular Hemoglobin 28.4 L Mean Corpuscular Hemoglobin Concent 32.0 Red Cell Distribution Width 12.9 Platelet Count 433 H Mean Platelet Volume 8.9 Neutrophils % 82.9 H Lymphocytes % 6.0 L Monocytes % 6.6 Eosinophils % 3.7 Basophils % 0.3 Nucleated Red Blood Cells % 0.0 Neutrophils # 8.8 H Lymphocytes # 0.6 L Monocytes # 0.7 Eosinophils # 0.4 Basophils # 0.0 Nucleated Red Blood Cells # 0.0 Sodium Level 140 Potassium Level 3.4 L Chloride Level 102 Carbon Dioxide Level 29 Anion Gap 12 Blood Urea Nitrogen 9 Creatinine 0.54 Glucose Level 117 Calcium Level 8.1 L Bedside Glucose 112 115 Medications Medications Current Medications Potassium Cl/ Dextrose/Lact Ringer's (D5-Lr + KCl 20 Meq) 1,000 ml @ 40 mls/hr Q24H IV Last administered on 10/19/16 05:05; Admin Dose 40 MLS/HR; Start 10/10 at 17:00 Pantoprazole (Protonix Iv) 40 mg DAILY@06 IV Last administered on 10/19/16 05: 06; Admin Dose 40 MG; Start 10/11/16 at 06:00 Dimethicone (Blistex Lip [place]) 1 applic Q2H PRN TOP CHAPPED LIPS; Start at 09:30 Diphenhydramine HCl (Benadryl) 25 mg Q6H PRN IV ITCHING Last administered on 14:19; Admin Dose 25 MG; Start 10/11/16 at 16:19 Hydralazine HCl 10 mg 10 mg Q4H PRN IV ELEVATED BLOOD PRESSURE; Start 10/15/16 at 10:00 Acetaminophen 100 ml @ 400 mls/hr Q6H PRN IVPB HEADACHE Last administered on 09:58; Admin Dose 400 MLS/HR; Start 10/15/16 at 10:00 Total Parenteral Nutrition 1,000 ml @ 40 mls/hr Q24H IV Last administered on 21:25; Admin Dose 40 MLS/HR; Start 10/15/16 at 20:00 Fat Emulsion Intravenous (Liposyn Ii 20%) 250 ml @ 20.833 mls/ hr DAILY@16 IV Last administered on 10/19/16 16:25; Admin Dose 20.833 MLS/HR; Start 10/15/16 at 20:00 IV Flush (NS 10 ml) 10 ml PRN PRN IV FLUSH LINE; Start 10/16/16 at 11:00 Hydromorphone HCl (Dilaudid) 0.5 mg Q2 PRN IV PAIN Last administered on 21:55; Admin Dose 0.5 MG; Start 10/16/16 at 15:00 Diagnostic Test (Pha) (Accu-Chek) 1 ea Q12 XX Last administered on 10/19/16 21 :39; Admin Dose 1 EA; Start 10/17/16 at 09:51 NUPUR RODRÍGUEZ MD Oct 19, 2016 22:58
[2016-10-20] MEDS: PANTOPRAZOLE 40 MG INJ IV SCH (05:45)
[2016-10-20] MEDS: D5-LR + KCL 20 MEQ 1,000 ML IV SCH (05:52)
[2016-10-20 06:09] LABS: POTASSIUM 3.5 mmol/L (3.5-5.1)
[2016-10-20 06:11] LABS: CREATININE 0.53 mg/dl (0.44-1.00)
[2016-10-20 06:12] LABS: CALCIUM 8.2 mg/dl (8.4-10.2)
[2016-10-20 06:13] LABS: MAGNESIUM 2.2 mg/dl (1.7-2.5)
[2016-10-20 07:11] VITALS: BP 143/76; RESP 22
[2016-10-20] MEDS: ACCU-CHEK XX SCH (09:01)
--- NOTE | 2016-10-20 14:28 | PN ---
Date/Time of Note Date/Time of Note DATE: 10/20/16 TIME: 14:18 Assessment/Plan VTE Prophylaxis VTE Prophylaxis Intervention: SCD's Lines/Catheters IV Catheter Type (from Nrs): PICC Line Central line still needed: Yes Urinary Cath still in place: Yes Reason Cath still needed: urinary retention Assessment/Plan Chief Complaint/Hosp Course stage IV endometrial cancer Problems: Subjective 24 Hr Interval Summary Free Text/Dictation + flatus and BM Exam/Review of Systems Vital Signs Vitals Vital Signs Date Time Temp Pulse Resp B/P Pulse Ox O2 Delivery O2 Flow Rate FiO2 10/20/16 07:11 98.0 85 22 143/76 96 Intake and Output 10/19/16 10/19/16 10/20/16 15:00 23:00 07:00 Intake Total 1880 ml 1300 ml Output Total 960 ml 980 ml Balance 920 ml 320 ml Exam Respiratory: clear to auscultation, normal air movement Cardiovascular: nl pulses, regular rate and rhythm Gastrointestinal: non-tender Extremities: No calf tenderness, No clubbing, No cyanosis, No edema, No normal pulses, No other, No palpable cord, No pitting pedal edema, No tenderness Results Result Diagram: 10/19/16 0420 10/20/16 0426 Results 24 hrs Laboratory Tests Test 10/19/16 21:31 10/20/16 04:26 10/20/16 08:59 Bedside Glucose 115 128 Sodium Level 138 Potassium Level 3.5 Chloride Level 102 Carbon Dioxide Level 29 Anion Gap 11 Blood Urea Nitrogen 10 Creatinine 0.53 Glucose Level 116 Calcium Level 8.2 L Phosphorus Level 4.0 Magnesium Level 2.2 Medications Medications Current Medications Potassium Cl/ Dextrose/Lact Ringer's (D5-Lr + KCl 20 Meq) 1,000 ml @ 40 mls/hr Q24H IV Last administered on 10/20/16 05:52; Admin Dose 40 MLS/HR; Start 10/10 at 17:00 Pantoprazole (Protonix Iv) 40 mg DAILY@06 IV Last administered on 10/20/16 05: 45; Admin Dose 40 MG; Start 10/11/16 at 06:00 Dimethicone (Blistex Lip [place]) 1 applic Q2H PRN TOP CHAPPED LIPS; Start at 09:30 Diphenhydramine HCl (Benadryl) 25 mg Q6H PRN IV ITCHING Last administered on 14:19; Admin Dose 25 MG; Start 10/11/16 at 16:19 Hydralazine HCl 10 mg 10 mg Q4H PRN IV ELEVATED BLOOD PRESSURE; Start 10/15/16 at 10:00 Acetaminophen 100 ml @ 400 mls/hr Q6H PRN IVPB HEADACHE Last administered on 09:58; Admin Dose 400 MLS/HR; Start 10/15/16 at 10:00 Total Parenteral Nutrition 1,000 ml @ 40 mls/hr Q24H IV Last administered on 21:25; Admin Dose 40 MLS/HR; Start 10/15/16 at 20:00 Fat Emulsion Intravenous (Liposyn Ii 20%) 250 ml @ 20.833 mls/ hr DAILY@16 IV Last administered on 10/19/16 16:25; Admin Dose 20.833 MLS/HR; Start 10/15/16 at 20:00 IV Flush (NS 10 ml) 10 ml PRN PRN IV FLUSH LINE; Start 10/16/16 at 11:00 Diagnostic Test (Pha) (Accu-Chek) 1 ea Q12 XX Last administered on 10/20/16 09 :01; Admin Dose 1 EA; Start 10/17/16 at 09:51 Hydromorphone HCl (Dilaudid) 0.5 mg Q4 PRN IV PAIN; Start 10/20/16 at 01:00 Tramadol HCl (Ultram) 50 mg Q6H PRN PO PAIN LEVEL 6-10; Start 10/19/16 at 23:00 Procedures Procedures A- doing well P adv to full liq and try to d/c [place]. If all goes well possibly soft diet tomorrow dinner and remove drains. Could possible premedicate and Rx Saturday or Sat NUPUR RODRÍGUEZ MD Oct 20, 2016 14:28
--- NOTE | 2016-10-20 14:34 | PN ---
Date/Time of Note Date/Time of Note DATE: 10/20/16 TIME: 14:31 Assessment/Plan VTE Prophylaxis VTE Prophylaxis Intervention: other Lines/Catheters IV Catheter Type (from Nrs): PICC Line Central line still needed: Yes Urinary Cath still in place: Yes Reason Cath still needed: urinary retention Assessment/Plan Assessment/Plan - Stage IV endometrial cancer - per surgery recommendations. - status post surgical procedure with CYNDI/BSO and recto-sigmoid en-bloc with low anastomosis by Dr. Bueno on 10/11. - continue TPN and lipids per asphalt engineer recommendation. - full liquid diet tonight - Hypertension. Continue hydralazine as needed for systolic blood pressure above 170. - Dyslipidemia. We will resume statins when patient is able to tolerate p.o. - Gastritis. Continue Protonix. Further recommendations based on clinical course. Anticipate discharge tomorrow if stable and patient will FU with surgery as recommended Plan of care discussed with Dr. Richardson. Subjective 24 Hr Interval Summary Free Text/Dictation remains on TPN, full liquid diet tonight per surgery, afebrile. dw staff Exam/Review of Systems Vital Signs Vitals Vital Signs Date Time Temp Pulse Resp B/P Pulse Ox O2 Delivery O2 Flow Rate FiO2 10/20/16 07:11 98.0 85 22 143/76 96 Intake and Output 10/19/16 10/19/16 10/20/16 15:00 23:00 07:00 Intake Total 1880 ml 1300 ml Output Total 960 ml 980 ml Balance 920 ml 320 ml Exam Constitutional: alert, oriented, well developed Psych: nl mood/affect Head: atraumatic Eyes: EOMI, nl sclera ENMT: nl external ears & nose Neck: non-tender Respiratory: clear to auscultation Gastrointestinal: soft, tender (tenderness at surgery site) Musculoskeletal: nl extremities to inspection Extremities: normal pulses Neurological: nl mental status, nl speech Skin: nl turgor Lymph: nontender Results Result Diagram: 10/19/1641910/20/166 Results 24 hrs Laboratory Tests Test 10/19/16 21:31 10/20/16 04:26 10/20/16 08:59 Bedside Glucose 115 128 Sodium Level 138 Potassium Level 3.5 Chloride Level 102 Carbon Dioxide Level 29 Anion Gap 11 Blood Urea Nitrogen 10 Creatinine 0.53 Glucose Level 116 Calcium Level 8.2 L Phosphorus Level 4.0 Magnesium Level 2.2 Medications Medications Current Medications Potassium Cl/ Dextrose/Lact Ringer's (D5-Lr + KCl 20 Meq) 1,000 ml @ 40 mls/hr Q24H IV Last administered on 10/20/16 05:52; Admin Dose 40 MLS/HR; Start 10/10 at 17:00 Pantoprazole (Protonix Iv) 40 mg DAILY@06 IV Last administered on 10/20/16 05: 45; Admin Dose 40 MG; Start 10/11/16 at 06:00 Dimethicone (Blistex Lip [place]) 1 applic Q2H PRN TOP CHAPPED LIPS; Start at 09:30 Diphenhydramine HCl (Benadryl) 25 mg Q6H PRN IV ITCHING Last administered on 14:19; Admin Dose 25 MG; Start 10/11/16 at 16:19 Hydralazine HCl 10 mg 10 mg Q4H PRN IV ELEVATED BLOOD PRESSURE; Start 10/15/16 at 10:00 Acetaminophen 100 ml @ 400 mls/hr Q6H PRN IVPB HEADACHE Last administered on 09:58; Admin Dose 400 MLS/HR; Start 10/15/16 at 10:00 Total Parenteral Nutrition 1,000 ml @ 40 mls/hr Q24H IV Last administered on 21:25; Admin Dose 40 MLS/HR; Start 10/15/16 at 20:00 Fat Emulsion Intravenous (Liposyn Ii 20%) 250 ml @ 20.833 mls/ hr DAILY@16 IV Last administered on 10/19/16 16:25; Admin Dose 20.833 MLS/HR; Start 10/15/16 at 20:00 IV Flush (NS 10 ml) 10 ml PRN PRN IV FLUSH LINE; Start 10/16/16 at 11:00 Diagnostic Test (Pha) (Accu-Chek) 1 ea Q12 XX Last administered on 10/20/16 09 :01; Admin Dose 1 EA; Start 10/17/16 at 09:51 Hydromorphone HCl (Dilaudid) 0.5 mg Q4 PRN IV PAIN; Start 10/20/16 at 01:00 Tramadol HCl (Ultram) 50 mg Q6H PRN PO PAIN LEVEL 6-10; Start 10/19/16 at 23:00 LATRICIA GABRIEL Oct 20, 2016 14:33
[2016-10-20 19:20] VITALS: BP 129/75; RESP 18
[2016-10-20] MEDS: HYDROmorphONE 1 MG/ML SYG IV PRN (20:18)
[2016-10-21] MEDS: D5-LR + KCL 20 MEQ 1,000 ML IV SCH (04:26)
[2016-10-21 05:47] LABS: ADD SCAN DIFF NO
[2016-10-21 05:52] LABS: POTASSIUM 3.6 mmol/L (3.5-5.1)
[2016-10-21 05:54] LABS: CREATININE 0.57 mg/dl (0.44-1.00)
[2016-10-21 05:55] LABS: CALCIUM 8.1 mg/dl (8.4-10.2); PHOSPHORUS 3.8 mg/dl (2.5-4.9)
[2016-10-21 05:56] LABS: MAGNESIUM 2.1 mg/dl (1.7-2.5)
[2016-10-21 05:59] LABS: BASOPHILS % 0.4 % (0.0-2.0); EOSINOPHILS # 0.3 10^3/ul (0.0-0.5); EOSINOPHILS % 3.2 % (0.0-7.0); HEMATOCRIT 31.5 % (37.0-47.0); HEMOGLOBIN 9.9 g/dl (12.0-16.0); LYMPHOCYTES # 0.9 10^3/ul (0.8-2.9); LYMPHOCYTES % 9.9 % (15.0-51.0); MEAN CORPUSCULAR HEMOGLOBIN 28.2 pg (29.0-33.0); MEAN CORPUSCULAR HGB CONC 31.4 g/dl (32.0-37.0); MEAN CORPUSCULAR VOLUME 89.7 fl (82.0-101.0); MEAN PLATELET VOLUME 9.3 fl (7.4-10.4); MONOCYTE # 0.8 10^3/ul (0.3-0.9); MONOCYTES % 8.2 % (0.0-11.0); NEUTROPHIL # 7.3 10^3/ul (1.6-7.5); NEUTROPHILS % 77.9 % (39.0-77.0); PLATELET COUNT 447 10^3/UL (140-415); RED BLOOD COUNT 3.51 10^6/ul (4.20-5.40); WHITE BLOOD COUNT 9.4 10^3/ul (4.8-10.8)
[2016-10-21] MEDS: PANTOPRAZOLE 40 MG INJ IV SCH (06:21)
[2016-10-21 08:21] VITALS: BP 123/76; RESP 18
--- NOTE | 2016-10-21 15:13 | PN ---
Date/Time of Note Date/Time of Note DATE: 10/21/16 TIME: 15:03 Assessment/Plan VTE Prophylaxis VTE Prophylaxis Intervention: other Lines/Catheters IV C[facility]ter Type (from [facility]): PICC Line Central line still needed: Yes Urinary Cath still in place: No Assessment/Plan Assessment/Plan - Stage IV endometrial cancer-lower abdominal incision- ag are intact, no edema/erythema/discharge noted - per surgery recommendations. - status post surgical procedure with CYNDI/BSO and recto-sigmoid en-bloc with low anastomosis by Dr. Bueno on 10/11. - continue TPN and lipids per roll grinder recommendation. - full liquid diet tonight - Hypertension. Continue hydralazine as needed for systolic blood pressure above 170. - Dyslipidemia. We will resume statins when patient is able to tolerate p.o. - Gastritis. Continue Protonix. Further recommendations based on clinical course. Anticipate discharge tomorrow if stable and patient will FU with surgery as recommended Plan of care discussed with Dr. Richardson. Subjective 24 Hr Interval Summary Free Text/Dictation alana, up in chair. tolerates diet, afebrile, mid abdominal ag noted dry and intact no discharge or redness or swelling noted ag are intact and open to air. Palpation she feels better and pain is under control.. Family at the bedside all questions answered. Discussed with the staff no new issues reported Constitutional: improved Eyes: no complaints ENT: no complaints Respiratory: no complaints Cardiovascular: no complaints Gastrointestinal: other (inscional pain at times) Genitourinary: no complaints Musculoskeletal: no complaints Skin: no complaints Neurologic: no complaints Endocrine: no complaints Psychological: no complaints Immunologic: no complaints Exam/Review of Systems Vital Signs Vitals Vital Signs Date Time Temp Pulse Resp B/P Pulse Ox O2 Delivery O2 Flow Rate FiO2 10/21/16 08:21 99.1 89 18 123/76 97 Intake and Output 10/20/16 10/20/16 10/21/16 15:00 23:00 07:00 Intake Total 1140 ml 1070 ml Output Total 820 ml 1090 ml Balance 320 ml -20 ml Exam Constitutional: alert, oriented Psych: nl mood/affect Head: atraumatic ENMT: nl external ears & nose Respiratory: clear to auscultation Cardiovascular: nl pulses Gastrointestinal: non-tender, other (lower abdominal incision- ag are intact, no edema/erythema/discharge noted), soft, tender Musculoskeletal: nl extremities to inspection Extremities: normal pulses Neurological: nl mental status, nl speech Skin: nl turgor Lymph: nontender Results Result Diagram: 10/21/1642810/21/16428 Results 24 hrs Laboratory Tests Test 10/21/16 04:29 White Blood Count 9.4 Red Blood Count 3.51 L Hemoglobin 9.9 L Hematocrit 31.5 L Mean Corpuscular Volume 89.7 Mean Corpuscular Hemoglobin 28.2 L Mean Corpuscular Hemoglobin Concent 31.4 L Red Cell Distribution Width 13.0 Platelet Count 447 H Mean Platelet Volume 9.3 Neutrophils % 77.9 H Lymphocytes % 9.9 L Monocytes % 8.2 Eosinophils % 3.2 Basophils % 0.4 Nucleated Red Blood Cells % 0.0 Neutrophils # 7.3 Lymphocytes # 0.9 Monocytes # 0.8 Eosinophils # 0.3 Basophils # 0.0 Nucleated Red Blood Cells # 0.0 Sodium Level 139 Potassium Level 3.6 Chloride Level 103 Carbon Dioxide Level 28 Anion Gap 12 Blood Urea Nitrogen 11 Creatinine 0.57 Glucose Level 91 Calcium Level 8.1 L Phosphorus Level 3.8 Magnesium Level 2.1 Medications Medications Current Medications Potassium Cl/ Dextrose/Lact Ringer's (D5-Lr + KCl 20 Meq) 1,000 ml @ 60 mls/hr [id number] IV Last administered on 10/21/16 04:26; Admin Dose 60 MLS/HR; Start at 17:00 Pantoprazole (Protonix Iv) 40 mg DAILY@06 IV Last administered on 10/21/16 06: 21; Admin Dose 40 MG; Start 10/11/16 at 06:00 Dimethicone (Blistex Lip [place]) 1 applic Q2H PRN TOP CHAPPED LIPS; Start at 09:30 Diphenhydramine HCl (Benadryl) 25 mg Q6H PRN IV ITCHING Last administered on 14:19; Admin Dose 25 MG; Start 10/11/16 at 16:19 Hydralazine HCl 10 mg 10 mg Q4H PRN IV ELEVATED BLOOD PRESSURE; Start 10/15/16 at 10:00 Acetaminophen (Ofirmev 1000mg/ 100ml Iv) 100 ml @ 400 mls/hr Q6H PRN IVPB HEADACHE Last administered on 10/15/16 09:58; Admin Dose 400 MLS/HR; Start at 10:00 IV Flush (NS 10 ml) 10 ml PRN PRN IV FLUSH LINE; Start 10/16/16 at 11:00 Hydromorphone HCl (Dilaudid) 0.5 mg Q4 PRN IV PAIN Last administered on 20:18; Admin Dose 0.5 MG; Start 10/20/16 at 01:00 Tramadol HCl (Ultram) 50 mg Q6H PRN PO PAIN LEVEL 6-10; Start 10/19/16 at 23:00 LATRICIA GABRIEL Oct 21, 2016 15:13
[2016-10-21 20:20] VITALS: BP 116/67; RESP 19
[2016-10-21] MEDS: HYDROmorphONE 1 MG/ML SYG IV PRN (22:59)
[2016-10-22] MEDS: D5-LR + KCL 20 MEQ 1,000 ML IV SCH ×2 (02:28→19:08)
[2016-10-22 05:46] LABS: CALCIUM 8.4 mg/dl (8.4-10.2); CREATININE 0.59 mg/dl (0.44-1.00); POTASSIUM 3.9 mmol/L (3.5-5.1)
[2016-10-22] MEDS: PANTOPRAZOLE 40 MG INJ IV SCH (06:05)
[2016-10-22 08:57] VITALS: BP 121/66; RESP 20
--- NOTE | 2016-10-22 16:10 | CONS ---
Date/Time of Note Date/Time of Note DATE: 10/22/16 TIME: 16:09 Assessment/Plan Assessment/Plan Chief Complaint/Hosp Course The patient is a 56-year-old female with recent diagnosis of endometrial cancer on 09/17/2016 by endometrial biopsy. The patient was diagnosed with stage IV endometrial cancer. She underwent massive surgical procedure with CYNDI/ BSO and recto-sigmoid en-bloc with low anastomosis per Dr. Bueno on 10/11/16. She had extensive positive retroperitoneal lymph nodes removed but the confluence of disease makes her classified as millimeter residual disease. - Per Dr. Bueno, plan for chemo in 2-3 days. Path report shows metastatic carcinosarcoma, will consider ifosfamide/taxol or carbo/taxol/ifosfamide. Will discuss further with Dr. Bueno. - Continue post-op care. Plan to mobilize and await GI function, TPN for nutrition. - Discussed with Dr. Bueno, will hold off on CT scan at this time as would be difficult to tell the difference between reactive tissue postop and metastatic disease. Additionally, oral contrast could harm her anastomosis. Prior CT A/P with and without contrast 10/02/16 demonstrated metastatic spread with bilateral right greater than left adnexal lesions, with areas of infiltration and nodularity within the right paracolic gutter and transverse mesocolon. - PICC line placed for TPN, can also use for chemotherapy Will continue to follow. Problems: Consultation Date/Type/Reason Admit Date/Time Oct 10, 2016 at 09:46 Initial Consult Date 10/12/16 Type of Consultation: Oncology 24 HR Interval Summary Free Text/Dictation Patient tolerating FLD and ambulating. Exam/Review of Systems Vital Signs Vitals Vital Signs Date Time Temp Pulse Resp B/P Pulse Ox O2 Delivery O2 Flow Rate FiO2 10/22/16 08:57 98.3 85 20 121/66 96 Intake and Output 10/21/16 10/21/16 10/22/16 15:00 23:00 07:00 Intake Total 1000 ml 400 ml Output Total 90 ml 1090 ml Balance 910 ml -690 ml Exam Constitutional: alert, oriented Psych: no complaints Head: atraumatic, normocephalic Eyes: nl conjunctiva Neck: supple Respiratory: clear to auscultation Cardiovascular: regular rate and rhythm Gastrointestinal: non-tender, other (dressings c/d/i), soft Musculoskeletal: nl extremities to inspection Results Result Diagram: 10/21/16 0429 10/22/16 0433 Results 24 hrs Laboratory Tests Test 10/22/16 04:33 Sodium Level 137 Potassium Level 3.9 Chloride Level 105 Carbon Dioxide Level 31 Anion Gap 5 L Blood Urea Nitrogen 10 Creatinine 0.59 Glucose Level 91 Calcium Level 8.4 Medications Medications Current Medications Potassium Cl/ Dextrose/Lact Ringer's (D5-Lr + KCl 20 Meq) 1,000 ml @ 60 mls/hr [id number] IV Last administered on 10/21/16 04:26; Admin Dose 60 MLS/HR; Start at 17:00 Pantoprazole (Protonix Iv) 40 mg DAILY@06 IV Last administered on 10/22/16 06: 05; Admin Dose 40 MG; Start 10/11/16 at 06:00 Dimethicone (Blistex Lip [place]) 1 applic Q2H PRN TOP CHAPPED LIPS; Start at 09:30 Diphenhydramine HCl (Benadryl) 25 mg Q6H PRN IV ITCHING Last administered on 14:19; Admin Dose 25 MG; Start 10/11/16 at 16:19 Hydralazine HCl 10 mg 10 mg Q4H PRN IV ELEVATED BLOOD PRESSURE; Start 10/15/16 at 10:00 Acetaminophen (Ofirmev 1000mg/ 100ml Iv) 100 ml @ 400 mls/hr Q6H PRN IVPB HEADACHE Last administered on 10/15/16 09:58; Admin Dose 400 MLS/HR; Start at 10:00 IV Flush (NS 10 ml) 10 ml PRN PRN IV FLUSH LINE Last administered on 10/21/16 22:59; Admin Dose 10 ML; Start 10/16/16 at 11:00 Hydromorphone HCl (Dilaudid) 0.5 mg Q4 PRN IV PAIN Last administered on 22:59; Admin Dose 0.5 MG; Start 10/20/16 at 01:00 Tramadol HCl (Ultram) 50 mg Q6H PRN PO PAIN LEVEL 6-10; Start 10/19/16 at 23:00 TO,LINDA Arenas MD Oct 22, 2016 16:10
--- NOTE | 2016-10-22 19:00 | PN ---
Date/Time of Note Date/Time of Note DATE: 10/22/16 TIME: 18:57 Assessment/Plan VTE Prophylaxis VTE Prophylaxis Intervention: SCD's Lines/Catheters IV C[facility] ([facility] PICC Line Central line still needed: Yes Urinary Cath still in place: No Assessment/Plan Chief Complaint/Hosp Course Assessment and plan: - Stage IV endometrial cancer, status post surgical procedure with CYNDI/BSO and recto-sigmoid en-bloc with low anastomosis by Dr. Bueno on 10/11. Advance diet per surgery. Patient was millimeter residual disease, plan is to start therapy when cleared by surgery. Dr. Hoang is following in oncology consultation. - Hypertension. Continue hydralazine as needed for systolic blood pressure above 170. - Dyslipidemia. We will resume statins when patient is able to tolerate p.o. - Gastritis. Continue Protonix. Further recommendations based on clinical course. Plan of care discussed with Dr. Richardson. Problems: Subjective 24 Hr Interval Summary Free Text/Dictation Patient tolerates full liquid diet well, denies any nausea vomiting, remained afebrile. Exam/Review of Systems Vital Signs Vitals Vital Signs Date Time Temp Pulse Resp B/P Pulse Ox O2 Delivery O2 Flow Rate FiO2 10/22/16 08:57 98.3 85 20 121/66 96 Intake and Output 10/21/16 10/21/16 10/22/16 15:00 23:00 07:00 Intake Total 1000 ml 400 ml Output Total 90 ml 1090 ml Balance 910 ml -690 ml Exam Constitutional: alert, oriented Psych: no complaints Head: normocephalic Eyes: nl conjunctiva ENMT: nl external ears & nose Neck: non-tender, supple Respiratory: clear to auscultation, normal air movement Cardiovascular: nl pulses, regular rate and rhythm Gastrointestinal: other (Status post surgery, with dry clean and intact dressing and left lower quadrant BJ.), soft Musculoskeletal: nl extremities to inspection Extremities: normal pulses Neurological: REAR ADMIRAL II-XII intact Results Result Diagram: 10/21/16 0429 10/22/16 0433 Results 24 hrs Laboratory Tests Test 10/22/16 04:33 Sodium Level 137 Potassium Level 3.9 Chloride Level 105 Carbon Dioxide Level 31 Anion Gap 5 L Blood Urea Nitrogen 10 Creatinine 0.59 Glucose Level 91 Calcium Level 8.4 Medications Medications Current Medications Potassium Cl/ Dextrose/Lact Ringer's (D5-Lr + KCl 20 Meq) 1,000 ml @ 60 mls/hr [id number] IV Last administered on 10/21/16 04:26; Admin Dose 60 MLS/HR; Start at 17:00 Pantoprazole (Protonix Iv) 40 mg DAILY@06 IV Last administered on 10/22/16 06: 05; Admin Dose 40 MG; Start 10/11/16 at 06:00 Dimethicone (Blistex Lip [place]) 1 applic Q2H PRN TOP CHAPPED LIPS; Start at 09:30 Diphenhydramine HCl (Benadryl) 25 mg Q6H PRN IV ITCHING Last administered on 14:19; Admin Dose 25 MG; Start 10/11/16 at 16:19 Hydralazine HCl 10 mg 10 mg Q4H PRN IV ELEVATED BLOOD PRESSURE; Start 10/15/16 at 10:00 Acetaminophen (Ofirmev 1000mg/ 100ml Iv) 100 ml @ 400 mls/hr Q6H PRN IVPB HEADACHE Last administered on 10/15/16 09:58; Admin Dose 400 MLS/HR; Start at 10:00 IV Flush (NS 10 ml) 10 ml PRN PRN IV FLUSH LINE Last administered on 10/21/16 22:59; Admin Dose 10 ML; Start 10/16/16 at 11:00 Hydromorphone HCl (Dilaudid) 0.5 mg Q4 PRN IV PAIN Last administered on 22:59; Admin Dose 0.5 MG; Start 10/20/16 at 01:00 Tramadol HCl (Ultram) 50 mg Q6H PRN PO PAIN LEVEL 6-10; Start 10/19/16 at 23:00 ELVIN TEIXEIRA Oct 22, 2016 19:00
[2016-10-22 20:16] VITALS: BP 118/74; RESP 18
[2016-10-22] MEDS: HYDROmorphONE 1 MG/ML SYG IV PRN (20:45)
[2016-10-23 05:02] LABS: ADD SCAN DIFF NO; BASOPHIL # 0.1 10^3/ul (0.0-0.1); BASOPHILS % 0.6 % (0.0-2.0); EOSINOPHILS # 0.3 10^3/ul (0.0-0.5); EOSINOPHILS % 2.6 % (0.0-7.0); HEMATOCRIT 32.8 % (37.0-47.0); HEMOGLOBIN 10.5 g/dl (12.0-16.0); LYMPHOCYTES # 1.1 10^3/ul (0.8-2.9); LYMPHOCYTES % 10.4 % (15.0-51.0); MEAN CORPUSCULAR HEMOGLOBIN 28.8 pg (29.0-33.0); MEAN CORPUSCULAR VOLUME 89.9 fl (82.0-101.0); MEAN PLATELET VOLUME 9.2 fl (7.4-10.4); MONOCYTE # 0.8 10^3/ul (0.3-0.9); MONOCYTES % 7.6 % (0.0-11.0); NEUTROPHILS % 78.5 % (39.0-77.0); PLATELET COUNT 483 10^3/UL (140-415); RED BLOOD COUNT 3.65 10^6/ul (4.20-5.40); RED CELL DISTRIBUTION WIDTH 12.5 % (11.5-14.5); WHITE BLOOD COUNT 10.2 10^3/ul (4.8-10.8)
[2016-10-23 05:21] LABS: CALCIUM 8.5 mg/dl (8.4-10.2); CREATININE 0.62 mg/dl (0.44-1.00); POTASSIUM 3.5 mmol/L (3.5-5.1)
[2016-10-23] MEDS: PANTOPRAZOLE 40 MG INJ IV SCH (06:46)
[2016-10-23 07:17] VITALS: BP 120/71; RESP 18
[2016-10-23] MEDS: D5-LR + KCL 20 MEQ 1,000 ML IV SCH (10:50)
--- NOTE | 2016-10-23 14:52 | CONS ---
Date/Time of Note Date/Time of Note DATE: 10/23/16 TIME: 14:52 Assessment/Plan Assessment/Plan Chief Complaint/Hosp Course The patient is a 56-year-old female with recent diagnosis of endometrial cancer on 09/17/2016 by endometrial biopsy. The patient was diagnosed with stage IV endometrial cancer. She underwent massive surgical procedure with CYNDI/ BSO and recto-sigmoid en-bloc with low anastomosis per Dr. Bueno on 10/11/16. She had extensive positive retroperitoneal lymph nodes removed but the confluence of disease makes her classified as millimeter residual disease. - Per Dr. Bueno, plan for chemo in 2-3 days. Path report shows metastatic carcinosarcoma, will consider ifosfamide/taxol or carbo/taxol/ifosfamide. Will discuss further with Dr. Bueno. - Continue post-op care. Plan to mobilize and await GI function, TPN for nutrition. - Discussed with Dr. Bueno, will hold off on CT scan at this time as would be difficult to tell the difference between reactive tissue postop and metastatic disease. Additionally, oral contrast could harm her anastomosis. Prior CT A/P with and without contrast 10/02/16 demonstrated metastatic spread with bilateral right greater than left adnexal lesions, with areas of infiltration and nodularity within the right paracolic gutter and transverse mesocolon. - PICC line placed for TPN, can also use for chemotherapy Will continue to follow. Problems: Consultation Date/Type/Reason Admit Date/Time Oct 10, 2016 at 09:46 Initial Consult Date 10/12/16 Type of Consultation: Oncology 24 HR Interval Summary Free Text/Dictation Patient tolerating mechanical soft diet. One drain still in place. Exam/Review of Systems Vital Signs Vitals Vital Signs Date Time Temp Pulse Resp B/P Pulse Ox O2 Delivery O2 Flow Rate FiO2 10/23/16 07:17 97.7 78 18 120/71 99 Intake and Output 10/22/16 10/22/16 10/23/16 15:00 23:00 07:00 Intake Total 700 ml Output Total 20 ml 130 ml Balance 680 ml -130 ml Exam Constitutional: alert, oriented Psych: no complaints Head: atraumatic, normocephalic Eyes: nl conjunctiva Neck: supple Respiratory: clear to auscultation Cardiovascular: regular rate and rhythm Gastrointestinal: non-tender, other (dressings c/d/i), soft Musculoskeletal: nl extremities to inspection Results Result Diagram: 10/23/165 10/23/165 Results 24 hrs Laboratory Tests Test 10/23/16 04:35 White Blood Count 10.2 Red Blood Count 3.65 L Hemoglobin 10.5 L Hematocrit 32.8 L Mean Corpuscular Volume 89.9 Mean Corpuscular Hemoglobin 28.8 L Mean Corpuscular Hemoglobin Concent 32.0 Red Cell Distribution Width 12.5 Platelet Count 483 H Mean Platelet Volume 9.2 Neutrophils % 78.5 H Lymphocytes % 10.4 L Monocytes % 7.6 Eosinophils % 2.6 Basophils % 0.6 Nucleated Red Blood Cells % 0.0 Neutrophils # 8.0 H Lymphocytes # 1.1 Monocytes # 0.8 Eosinophils # 0.3 Basophils # 0.1 Nucleated Red Blood Cells # 0.0 Sodium Level 138 Potassium Level 3.5 Chloride Level 104 Carbon Dioxide Level 29 Anion Gap 9 Blood Urea Nitrogen 9 Creatinine 0.62 Glucose Level 98 Calcium Level 8.5 Medications Medications Current Medications Potassium Cl/ Dextrose/Lact Ringer's (D5-Lr + KCl 20 Meq) 1,000 ml @ 60 mls/hr [id number] IV Last administered on 10/21/16 04:26; Admin Dose 60 MLS/HR; Start at 17:00 Pantoprazole (Protonix Iv) 40 mg DAILY@06 IV Last administered on 10/23/16 06: 46; Admin Dose 40 MG; Start 10/11/16 at 06:00 Dimethicone (Blistex Lip [place]) 1 applic Q2H PRN TOP CHAPPED LIPS; Start at 09:30 Diphenhydramine HCl (Benadryl) 25 mg Q6H PRN IV ITCHING Last administered on 14:19; Admin Dose 25 MG; Start 10/11/16 at 16:19 Hydralazine HCl 10 mg 10 mg Q4H PRN IV ELEVATED BLOOD PRESSURE; Start 10/15/16 at 10:00 Acetaminophen (Ofirmev 1000mg/ 100ml Iv) 100 ml @ 400 mls/hr Q6H PRN IVPB HEADACHE Last administered on 10/15/16 09:58; Admin Dose 400 MLS/HR; Start at 10:00 IV Flush (NS 10 ml) 10 ml PRN PRN IV FLUSH LINE Last administered on 10/22/16t 20:40; Admin Dose 10 ML; Start 10/16/16 at 11:00 Tramadol HCl (Ultram) 50 mg Q6H PRN PO PAIN LEVEL 6-10; Start 10/19/16 at 23:00 Hydromorphone HCl (Dilaudid) 0.5 mg Q8 PRN IV PAIN; Start 10/23/16 at 06:00 LINDA SWANOSN MD Oct 23, 2016 14:52
[2016-10-23] MEDS ORDERED: BISACODYL (EC) 5 MG TAB PO ONE (17:00)
--- NOTE | 2016-10-23 18:20 | PN ---
Date/Time of Note Date/Time of Note DATE: 10/23/16 TIME: 18:19 Assessment/Plan VTE Prophylaxis VTE Prophylaxis Intervention: SCD's Lines/Catheters IV [facility] ([facility] P[facility] Line Central line still needed: Yes Urinary Cath still in place: No Assessment/Plan Chief Complaint/Hosp Course Assessment and plan: - Stage IV endometrial cancer, status post surgical procedure with CYNDI/BSO and recto-sigmoid en-bloc with low anastomosis by Dr. Bueno on 10/11. Advance diet per surgery. Patient was millimeter residual disease, plan is to start therapy when cleared by surgery. Dr. Hoang is following in oncology consultation. - Hypertension. Continue hydralazine as needed for systolic blood pressure above 170. - Dyslipidemia. We will resume statins when patient is able to tolerate p.o. - Gastritis. Continue Protonix. Further recommendations based on clinical course. Plan of care discussed with Dr. Richardson. Problems: Subjective 24 Hr Interval Summary Free Text/Dictation Patient tolerates a regular diet well denies nausea vomiting Exam/Review of Systems Vital Signs Vitals Vital Signs Date Time Temp Pulse Resp B/P Pulse Ox O2 Delivery O2 Flow Rate FiO2 10/23/16 07:17 97.7 78 18 120/71 99 Intake and Output 10/22/16 10/22/16 10/23/16 15:00 23:00 07:00 Intake Total 700 ml Output Total 20 ml 130 ml Balance 680 ml -130 ml Exam Constitutional: alert, oriented Psych: no complaints Head: normocephalic Eyes: nl conjunctiva ENMT: nl external ears & nose Neck: non-tender, supple Respiratory: clear to auscultation, normal air movement Cardiovascular: nl pulses, regular rate and rhythm Gastrointestinal: other (Status post surgery, with dry clean and intact dressing and left lower quadrant BJ.), soft Musculoskeletal: nl extremities to inspection Extremities: normal pulses Neurological: FACTORY EXPERT II-XII intact Results Result Diagram: 10/23/16 0435 10/23/165 Results 24 hrs Laboratory Tests Test 10/23/16 04:35 White Blood Count 10.2 Red Blood Count 3.65 L Hemoglobin 10.5 L Hematocrit 32.8 L Mean Corpuscular Volume 89.9 Mean Corpuscular Hemoglobin 28.8 L Mean Corpuscular Hemoglobin Concent 32.0 Red Cell Distribution Width 12.5 Platelet Count 483 H Mean Platelet Volume 9.2 Neutrophils % 78.5 H Lymphocytes % 10.4 L Monocytes % 7.6 Eosinophils % 2.6 Basophils % 0.6 Nucleated Red Blood Cells % 0.0 Neutrophils # 8.0 H Lymphocytes # 1.1 Monocytes # 0.8 Eosinophils # 0.3 Basophils # 0.1 Nucleated Red Blood Cells # 0.0 Sodium Level 138 Potassium Level 3.5 Chloride Level 104 Carbon Dioxide Level 29 Anion Gap 9 Blood Urea Nitrogen 9 Creatinine 0.62 Glucose Level 98 Calcium Level 8.5 Medications Medications Current Medications Potassium Cl/ Dextrose/Lact Ringer's (D5-Lr + KCl 20 Meq) 1,000 ml @ 60 mls/hr [id number] IV Last administered on 10/21/16 04:26; Admin Dose 60 MLS/HR; Start at 17:00 Pantoprazole (Protonix Iv) 40 mg DAILY@06 IV Last administered on 10/23/16 06: 46; Admin Dose 40 MG; Start 10/11/16 at 06:00 Dimethicone (Blistex Lip [place]) 1 applic Q2H PRN TOP CHAPPED LIPS; Start at 09:30 Diphenhydramine HCl (Benadryl) 25 mg Q6H PRN IV ITCHING Last administered on 14:19; Admin Dose 25 MG; Start 10/11/16 at 16:19 Hydralazine HCl 10 mg 10 mg Q4H PRN IV ELEVATED BLOOD PRESSURE; Start 10/15/16 at 10:00 Acetaminophen (Ofirmev 1000mg/ 100ml Iv) 100 ml @ 400 mls/hr Q6H PRN IVPB HEADACHE Last administered on 10/15/16 09:58; Admin Dose 400 MLS/HR; Start at 10:00 IV Flush (NS 10 ml) 10 ml PRN PRN IV FLUSH LINE Last administered on 10/22/16 20:40; Admin Dose 10 ML; Start 10/16/16 at 11:00 Tramadol HCl (Ultram) 50 mg Q6H PRN PO PAIN LEVEL 6-10; Start 10/19/16 at 23:00 Hydromorphone HCl (Dilaudid) 0.5 mg Q8 PRN IV PAIN; Start 10/23/16 at 06:00 ELVIN TEIXEIRA Oct 23, 2016 18:20
[2016-10-23] MEDS: HYDROmorphONE 1 MG/ML SYG IV PRN (20:17)
[2016-10-23 20:51] VITALS: BP 126/69; RESP 20
--- NOTE | 2016-10-23 21:50 | PN ---
Date/Time of Note Date/Time of Note DATE: 10/23/16 TIME: 21:47 Assessment/Plan VTE Prophylaxis VTE Prophylaxis Intervention: LMWH Lines/Catheters IV Catheter Type (from Nrs): PICC Line Central line still needed: Yes Urinary Cath still in place: No Assessment/Plan Chief Complaint/Hosp Course stage IV endometrial cancer Problems: Assessment/Plan anticipate chemo 1-2d Subjective 24 Hr Interval Summary Free Text/Dictation rolerating dieg + flatus Exam/Review of Systems Vital Signs Vitals Vital Signs Date Time Temp Pulse Resp B/P Pulse Ox O2 Delivery O2 Flow Rate FiO2 10/23/16 20:51 98.8 103 20 126/69 97 Intake and Output 10/22/16 10/22/16 10/23/16 15:00 23:00 07:00 Intake Total 700 ml Output Total 20 ml 130 ml Balance 680 ml -130 ml Exam Respiratory: clear to auscultation, normal air movement Gastrointestinal: non-tender Genitourinary - Female: nl adnexae, nl external genitalia Results Result Diagram: 10/23/16 0435 10/23/16 0435 Results 24 hrs Laboratory Tests Test 10/23/16 04:35 White Blood Count 10.2 Red Blood Count 3.65 L Hemoglobin 10.5 L Hematocrit 32.8 L Mean Corpuscular Volume 89.9 Mean Corpuscular Hemoglobin 28.8 L Mean Corpuscular Hemoglobin Concent 32.0 Red Cell Distribution Width 12.5 Platelet Count 483 H Mean Platelet Volume 9.2 Neutrophils % 78.5 H Lymphocytes % 10.4 L Monocytes % 7.6 Eosinophils % 2.6 Basophils % 0.6 Nucleated Red Blood Cells % 0.0 Neutrophils # 8.0 H Lymphocytes # 1.1 Monocytes # 0.8 Eosinophils # 0.3 Basophils # 0.1 Nucleated Red Blood Cells # 0.0 Sodium Level 138 Potassium Level 3.5 Chloride Level 104 Carbon Dioxide Level 29 Anion Gap 9 Blood Urea Nitrogen 9 Creatinine 0.62 Glucose Level 98 Calcium Level 8.5 Medications Medications Current Medications Potassium Cl/ Dextrose/Lact Ringer's (D5-Lr + KCl 20 Meq) 1,000 ml @ 60 mls/hr [id number] IV Last administered on 10/21/16t 04:26; Admin Dose 60 MLS/HR; Start at 17:00 Pantoprazole (Protonix Iv) 40 mg DAILY@06 IV Last administered on 10/23/16 06: 46; Admin Dose 40 MG; Start 10/11/16 at 06:00 Dimethicone (Blistex Lip [place]) 1 applic Q2H PRN TOP CHAPPED LIPS; Start at 09:30 Diphenhydramine HCl (Benadryl) 25 mg Q6H PRN IV ITCHING Last administered on 14:19; Admin Dose 25 MG; Start 10/11/16 at 16:19 Hydralazine HCl 10 mg 10 mg Q4H PRN IV ELEVATED BLOOD PRESSURE; Start 10/15/16 at 10:00 Acetaminophen (Ofirmev 1000mg/ 100ml Iv) 100 ml @ 400 mls/hr Q6H PRN IVPB HEADACHE Last administered on 10/15/16 09:58; Admin Dose 400 MLS/HR; Start at 10:00 IV Flush (NS 10 ml) 10 ml PRN PRN IV FLUSH LINE Last administered on 10/22/16 20:40; Admin Dose 10 ML; Start 10/16/16 at 11:00 Tramadol HCl (Ultram) 50 mg Q6H PRN PO PAIN LEVEL 6-10; Start 10/19/16 at 23:00 Hydromorphone HCl (Dilaudid) 0.5 mg Q8 PRN IV PAIN Last administered on 20:17; Admin Dose 0.5 MG; Start 10/23/16 at 06:00 NUPUR RODRÍGUEZ MD Oct 23, 2016 21:50
[2016-10-24] MEDS: traMADol 50 MG TAB PO PRN ×2 (01:13→20:45)
[2016-10-24] MEDS: D5-LR + KCL 20 MEQ 1,000 ML IV SCH ×2 (04:28→21:08)
[2016-10-24] MEDS: PANTOPRAZOLE 40 MG INJ IV SCH (05:45)
[2016-10-24 07:24] VITALS: BP 127/69; RESP 20
[2016-10-24] MEDS: ACETAMINOPHEN 1000MG/100ML IV 100 ML IVPB PRN (07:38)
--- NOTE | 2016-10-24 12:24 | PN ---
Date/Time of Note Date/Time of Note DATE: 10/24/16 TIME: 12:20 Assessment/Plan VTE Prophylaxis VTE Prophylaxis Intervention: SCD's Lines/Catheters IV Catheter Type (from Nrs): PICC Line Central line still needed: Yes Urinary Cath still in place: No Assessment/Plan Chief Complaint/Hosp Course stage IV endometrial cancer Problems: Assessment/Plan A- improved P- anticipate chemo; discussed with Med Onc Subjective 24 Hr Interval Summary Free Text/Dictation + BM yest and less pain. No N/V and OOB Exam/Review of Systems Vital Signs Vitals Vital Signs Date Time Temp Pulse Resp B/P Pulse Ox O2 Delivery O2 Flow Rate FiO2 10/24/16 07:24 98.0 91 20 127/69 98 Intake and Output 10/23/16 10/23/16 10/24/16 15:00 23:00 07:00 Intake Total 500 ml 1180 ml 450 ml Output Total 1610 ml 80 ml Balance 500 ml -430 ml 370 ml Exam Respiratory: normal air movement Cardiovascular: nl pulses, regular rate and rhythm Gastrointestinal: No ascites, No bowel sounds, No distended, No firm, No hepatomegaly, No mass, No nl liver, spleen, No non-tender, No other, No rebound or guarding, No soft, No splenomegaly, No surgical scars, No tender Extremities: No calf tenderness, No clubbing, No cyanosis, No edema, No normal pulses, No other, No palpable cord, No pitting pedal edema, No tenderness Results Result Diagram: 10/23/16 0435 10/23/16 0435 Medications Medications Current Medications Potassium Cl/ Dextrose/Lact Ringer's (D5-Lr + KCl 20 Meq) 1,000 ml @ 60 mls/hr [id number] IV Last administered on 10/21/16 04:26; Admin Dose 60 MLS/HR; Start at 17:00 Pantoprazole (Protonix Iv) 40 mg DAILY@06 IV Last administered on 10/24/16 05: 45; Admin Dose 40 MG; Start 10/11/16 at 06:00 Dimethicone (Blistex Lip [place]) 1 applic Q2H PRN TOP CHAPPED LIPS; Start at 09:30 Diphenhydramine HCl (Benadryl) 25 mg Q6H PRN IV ITCHING Last administered on 14:19; Admin Dose 25 MG; Start 10/11/16 at 16:19 Hydralazine HCl 10 mg 10 mg Q4H PRN IV ELEVATED BLOOD PRESSURE; Start 10/15/16 at 10:00 Acetaminophen (Ofirmev 1000mg/ 100ml Iv) 100 ml @ 400 mls/hr Q6H PRN IVPB HEADACHE Last administered on 10/24/16 07:38; Admin Dose 400 MLS/HR; Start at 10:00 IV Flush (NS 10 ml) 10 ml PRN PRN IV FLUSH LINE Last administered on 10/22/16 20:40; Admin Dose 10 ML; Start 10/16/16 at 11:00 Tramadol HCl (Ultram) 50 mg Q6H PRN PO PAIN LEVEL 6-10 Last administered on 01:13; Admin Dose 50 MG; Start 10/19/16 at 23:00 Hydromorphone HCl (Dilaudid) 0.5 mg Q8 PRN IV PAIN Last administered on 20:17; Admin Dose 0.5 MG; Start 10/23/16 at 06:00 NUPUR RODRÍGUEZ MD Oct 24, 2016 12:24
--- NOTE | 2016-10-24 12:51 | CONS ---
Date/Time of Note Date/Time of Note DATE: 10/24/16 TIME: 12:47 Assessment/Plan Assessment/Plan Chief Complaint/Hosp Course The patient is a 56-year-old female with recent diagnosis of endometrial cancer on 09/17/2016 by endometrial biopsy. The patient was diagnosed with stage IV endometrial cancer. She underwent massive surgical procedure with CYNDI/ BSO and recto-sigmoid en-bloc with low anastomosis per Dr. Bueno on 10/11/16. She had extensive positive retroperitoneal lymph nodes removed but the confluence of disease makes her classified as millimeter residual disease. - Path report shows metastatic carcinosarcoma. Ifosfamide/taxol regimen is commonly used, however per Dr. Bueno, more recently several phase II articles produced as good or better results with Carbo/Taxol. There is an ongoing Phase III GOG study (GOG 261) that randomizes patients to Carbo/Taxol vs. Ifosfamide/Taxol for advanced stage disease, however the data are not yet mature. Given how advanced and serious, Dr. Bueno, would like to treat with 8 cycles, the first four Carbo/Taxol followed by four cycles of Ifosfamide/ taxol. Plan to premedicate with decadron 12 hours and 6 hours prior to chemo, then start chemotherapy with Carbo/taxol once chemo arrives. Side effects including N/V, fatigue, myelosuppression, allergic reaction discussed with the patient. - Continue post-op care. Plan to mobilize and advance diet as tolerated. - Discussed with Dr. Bueno, will hold off on CT scan at this time as would be difficult to tell the difference between reactive tissue postop and metastatic disease. Additionally, oral contrast could harm her anastomosis. Prior CT A/P with and without contrast 10/02/16 demonstrated metastatic spread with bilateral right greater than left adnexal lesions, with areas of infiltration and nodularity within the right paracolic gutter and transverse mesocolon. - PICC line placed for TPN, can also use for chemotherapy Will continue to follow. Problems: Consultation Date/Type/Reason Admit Date/Time Oct 10, 2016 at 09:46 Initial Consult Date 10/12/16 Type of Consultation: Oncology 24 HR Interval Summary Free Text/Dictation Patient doing well, tolerating mechanical soft diet. Chemo will start as soon as meds arrive. Exam/Review of Systems Vital Signs Vitals Vital Signs Date Time Temp Pulse Resp B/P Pulse Ox O2 Delivery O2 Flow Rate FiO2 10/24/16 07:24 98.0 91 20 127/69 98 Intake and Output 10/23/16 10/23/16 10/24/16 15:00 23:00 07:00 Intake Total 500 ml 1180 ml 450 ml Output Total 1610 ml 80 ml Balance 500 ml -430 ml 370 ml Exam Constitutional: alert, oriented Psych: no complaints Head: atraumatic, normocephalic Eyes: nl conjunctiva Neck: supple Respiratory: clear to auscultation Cardiovascular: regular rate and rhythm Gastrointestinal: non-tender, other (ag c/d/i), soft Musculoskeletal: nl extremities to inspection Results Result Diagram: 10/23/1643410/23/16434 Medications Medications Current Medications Potassium Cl/ Dextrose/Lact Ringer's (D5-Lr + KCl 20 Meq) 1,000 ml @ 60 mls/hr [id number] IV Last administered on 10/21/16 04:26; Admin Dose 60 MLS/HR; Start at 17:00 Pantoprazole (Protonix Iv) 40 mg DAILY@06 IV Last administered on 10/24/16 05: 45; Admin Dose 40 MG; Start 10/11/16 at 06:00 Dimethicone (Blistex Lip [place]) 1 applic Q2H PRN TOP CHAPPED LIPS; Start at 09:30 Diphenhydramine HCl (Benadryl) 25 mg Q6H PRN IV ITCHING Last administered on 14:19; Admin Dose 25 MG; Start 10/11/16 at 16:19 Hydralazine HCl 10 mg 10 mg Q4H PRN IV ELEVATED BLOOD PRESSURE; Start 10/15/16 at 10:00 Acetaminophen (Ofirmev 1000mg/ 100ml Iv) 100 ml @ 400 mls/hr Q6H PRN IVPB HEADACHE Last administered on 10/24/16 07:38; Admin Dose 400 MLS/HR; Start at 10:00 IV Flush (NS 10 ml) 10 ml PRN PRN IV FLUSH LINE Last administered on 10/22/16 20:40; Admin Dose 10 ML; Start 10/16/16 at 11:00 Tramadol HCl (Ultram) 50 mg Q6H PRN PO PAIN LEVEL 6-10 Last administered on 01:13; Admin Dose 50 MG; Start 10/19/16 at 23:00 Hydromorphone HCl (Dilaudid) 0.5 mg Q8 PRN IV PAIN Last administered on 20:17; Admin Dose 0.5 MG; Start 10/23/16 at 06:00 LINDA SWANSON MD Oct 24, 2016 12:51
[2016-10-24] MEDS: HYDROmorphONE 1 MG/ML SYG IV PRN ×2 (15:38→23:12)
--- NOTE | 2016-10-24 17:06 | PN ---
Date/Time of Note Date/Time of Note DATE: 10/24/16 TIME: 17:05 Assessment/Plan VTE Prophylaxis VTE Prophylaxis Intervention: SCD's Lines/Catheters [facility] PICC Line Central line still needed: Yes Urinary Cath still in place: No Assessment/Plan Chief Complaint/Hosp Course Assessment and plan: - Stage IV endometrial cancer, status post surgical procedure with CYNDI/BSO and recto-sigmoid en-bloc with low anastomosis by Dr. Bueno on 10/11. Advance diet per surgery. Patient was millimeter residual disease, plan is to start therapy while in-house. Dr. Hoang is following in oncology consultation. - Hypertension. Continue hydralazine as needed for systolic blood pressure above 170. - Dyslipidemia. We will resume statins when patient is able to tolerate p.o. - Gastritis. Continue Protonix. Further recommendations based on clinical course. Plan of care discussed with Dr. Richardson. Problems: Subjective 24 Hr Interval Summary Free Text/Dictation Patient tolerates regular diet well, pain is well controlled. Exam/Review of Systems Vital Signs Vitals Vital Signs Date Time Temp Pulse Resp B/P Pulse Ox O2 Delivery O2 Flow Rate FiO2 10/24/16 07:24 98.0 91 20 127/69 98 Intake and Output 10/23/16 10/23/16 10/24/16 14:59 22:59 06:59 Intake Total 500 ml 1180 ml 450 ml Output Total 1610 ml 80 ml Balance 500 ml -430 ml 370 ml Exam Constitutional: alert, oriented Psych: no complaints Head: normocephalic Eyes: nl conjunctiva ENMT: nl external ears & nose Neck: non-tender, supple Respiratory: clear to auscultation, normal air movement Cardiovascular: nl pulses, regular rate and rhythm Gastrointestinal: other (Status post surgery, surgical incision is intact with ag and left lower quadrant BJ.), soft Musculoskeletal: nl extremities to inspection Extremities: normal pulses 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 Results Result Diagram: 10/23/16 0435 10/23/16 0435 Medications Medications Current Medications Potassium Cl/ Dextrose/Lact Ringer's (D5-Lr + KCl 20 Meq) 1,000 ml @ 60 mls/hr [id number] IV Last administered on 10/21/16t 04:26; Admin Dose 60 MLS/HR; Start at 17:00 Dimethicone (Blistex Lip [place]) 1 applic Q2H PRN TOP CHAPPED LIPS; Start at 09:30 Diphenhydramine HCl (Benadryl) 25 mg Q6H PRN IV ITCHING Last administered on 14:19; Admin Dose 25 MG; Start 10/11/16 at 16:19 Hydralazine HCl 10 mg 10 mg Q4H PRN IV ELEVATED BLOOD PRESSURE; Start 10/15/16 at 10:00 Acetaminophen (Ofirmev 1000mg/ 100ml Iv) 100 ml @ 400 mls/hr Q6H PRN IVPB HEADACHE Last administered on 10/24/16 07:38; Admin Dose 400 MLS/HR; Start at 10:00 IV Flush (NS 10 ml) 10 ml PRN PRN IV FLUSH LINE Last administered on 10/22/16 20:40; Admin Dose 10 ML; Start 10/16/16 at 11:00 Tramadol HCl (Ultram) 50 mg Q6H PRN PO PAIN LEVEL 6-10 Last administered on 01:13; Admin Dose 50 MG; Start 10/19/16 at 23:00 Hydromorphone HCl (Dilaudid) 0.5 mg Q8 PRN IV PAIN Last administered on 15:38; Admin Dose 0.5 MG; Start 10/23/16 at 06:00 Pantoprazole (Protonix Tab) 40 mg DAILY@06 PO ; Start 10/25/16 at 06:00 ELVIN TEIXEIRA Oct 24, 2016 17:06
[2016-10-24] MEDS ORDERED: ONDANSETRON INJ 8 MG in DEXTROSE 5% 50 ML IV PRN (17:30)
[2016-10-24 20:50] VITALS: BP 116/73; RESP 20
[2016-10-25] VITALS (8 sets, daily range): BP systolic 115–132; BP diastolic 67–80; PULSE 90–109; RESP 18–20
[2016-10-25 05:09] LABS: ADD SCAN DIFF NO
[2016-10-25 05:16] LABS: BASOPHIL # 0.1 10^3/ul (0.0-0.1); BASOPHILS % 0.5 % (0.0-2.0); EOSINOPHILS # 0.2 10^3/ul (0.0-0.5); EOSINOPHILS % 1.8 % (0.0-7.0); HEMATOCRIT 37.1 % (37.0-47.0); HEMOGLOBIN 11.5 g/dl (12.0-16.0); LYMPHOCYTES # 1.5 10^3/ul (0.8-2.9); LYMPHOCYTES % 14.1 % (15.0-51.0); MEAN CORPUSCULAR HEMOGLOBIN 27.7 pg (29.0-33.0); MEAN CORPUSCULAR VOLUME 89.4 fl (82.0-101.0); MEAN PLATELET VOLUME 9.1 fl (7.4-10.4); MONOCYTE # 0.8 10^3/ul (0.3-0.9); MONOCYTES % 7.8 % (0.0-11.0); NEUTROPHIL # 7.8 10^3/ul (1.6-7.5); NEUTROPHILS % 75.4 % (39.0-77.0); PLATELET COUNT 599 10^3/UL (140-415); RED BLOOD COUNT 4.15 10^6/ul (4.20-5.40); WHITE BLOOD COUNT 10.3 10^3/ul (4.8-10.8)
[2016-10-25 05:28] LABS: BILIRUBIN,INDIRECT 0.2 mg/dl (0-1.1); BILIRUBIN,TOTAL 0.2 mg/dl (0.2-1.3); CALCIUM 8.4 mg/dl (8.4-10.2); CREATININE 0.67 mg/dl (0.44-1.00); POTASSIUM 3.7 mmol/L (3.5-5.1)
[2016-10-25] MEDS: PANTOPRAZOLE (EC) 40 MG TAB PO SCH (05:30)
[2016-10-25] MEDS: traMADol 50 MG TAB PO PRN (07:47)
[2016-10-25] MEDS ORDERED: DEXAMETHASONE 4 MG TAB PO SCH (09:00)
[2016-10-25 09:28] LABS: ADD UMIC YES; URINE BILIRUBIN (Dip) NEGATIVE (NEGATIVE); URINE BLOOD (Dip) 2+ (NEGATIVE); URINE COLOR LT. YELLOW (YELLOW); URINE GLUCOSE (Dip) NEGATIVE (NEGATIVE); URINE KETONES (Dip) NEGATIVE (NEGATIVE); URINE LEUKOCYTE ESTERASE (Dip) 2+ (NEGATIVE); URINE NITRITE (Dip) POSITIVE (NEGATIVE); URINE TOTAL PROTEIN (Dip) TRACE (NEGATIVE); URINE UROBILINOGEN (Dip) 0.2 E.U./dL (0.1-1.0)
[2016-10-25] MEDS ORDERED: DIPHENHYDRAMINE 50 MG INJ IV PRN ×2 (09:30→22:00)
[2016-10-25] MEDS ORDERED: ONDANSETRON INJ 8 MG in SOD CHLORIDE 0.9% 50 ML IV PRN (09:30)
[2016-10-25] MEDS ORDERED: DEXAMETHASONE 10 MG/ML 1 ML INJ IV PRN (09:30)
[2016-10-25 09:41] LABS: BACTERIA,URINE MANY; URINE RBCS >50 /HPF (0)
[2016-10-25] MEDS: DEXAMETHASONE 4 MG TAB PO SCH ×2 (11:31→17:09)
--- NOTE | 2016-10-25 15:12 | PN ---
Date/Time of Note Date/Time of Note DATE: 10/25/16 TIME: 15:10 Assessment/Plan VTE Prophylaxis VTE Prophylaxis Intervention: other Lines/Catheters [facility] Type ([facility] PICC Line Central line still needed: Yes Urinary Cath still in place: No Assessment/Plan Assessment/Plan - Stage IV endometrial cancer - status post surgical procedure with CYNDI/BSO and recto-sigmoid en-bloc with low anastomosis by Dr. Bueno on 10/11. Pathology report showed - the percentage of sarcoma in the metastatic sites is decided to be more than 90%. - per surgery - regular diet per surgery. - Patient was millimeter residual disease, plan is to start therapy while in- house. Dr. Hoang is following in oncology consultation. - Hypertension. Continue hydralazine as needed for systolic blood pressure above 170. - Dyslipidemia. We will resume statins when patient is able to tolerate p.o. - Gastritis. Continue Protonix. Further recommendations based on clinical course. Plan of care discussed with Dr. Richardson. Subjective 24 Hr Interval Summary Free Text/Dictation Complain of bilateral rib pain this morning but feels better after she got Toradol. No repeated episode of ri pain reported. now denies any chest pain, palpitations ,shortness of breath and is afebrile discussed with the staff ambulating well tolerating diet/ Subjective hx not possible: pt non-verbal Constitutional: improved Eyes: no complaints ENT: no complaints Respiratory: no complaints Cardiovascular: no complaints Gastrointestinal: no complaints Genitourinary: no complaints ( ) Musculoskeletal: no complaints Skin: no complaints, other (ag- mid abdomen) Neurologic: no complaints Endocrine: no complaints Psychological: no complaints Immunologic: no complaints Exam/Review of Systems Vital Signs Vitals Vital Signs Date Time Temp Pulse Resp B/P Pulse Ox O2 Delivery O2 Flow Rate FiO2 10/25/16 07:32 98.2 96 20 132/80 96 Intake and Output 10/24/16 10/24/16 10/25/16 15:00 23:00 07:00 Intake Total 100 ml 880 ml 360 ml Output Total 275 ml 240 ml Balance 100 ml 605 ml 120 ml Exam Constitutional: alert, oriented, well developed Psych: no complaints Head: atraumatic, normocephalic Eyes: EOMI ENMT: nl external ears & nose Neck: non-tender Respiratory: clear to auscultation Cardiovascular: nl pulses Gastrointestinal: non-tender, other (Abdominal ag intact open to air), soft Musculoskeletal: nl extremities to inspection Extremities: normal pulses Neurological: nl mental status Skin: nl turgor, other (mid abdomen ag note- intact, open to air, no edema , erythema , discharge noted) Lymph: nontender Results Result Diagram: 10/25/16 0425 10/25/16 1140 Results 24 hrs Laboratory Tests Test 10/25/16 04:25 10/25/16 07:30 10/25/16 11:40 White Blood Count 10.3 Red Blood Count 4.15 L Hemoglobin 11.5 L Hematocrit 37.1 Mean Corpuscular Volume 89.4 Mean Corpuscular Hemoglobin 27.7 L Mean Corpuscular Hemoglobin Concent 31.0 L Red Cell Distribution Width 13.0 Platelet Count 599 #H Mean Platelet Volume 9.1 Neutrophils % 75.4 Lymphocytes % 14.1 L Monocytes % 7.8 Eosinophils % 1.8 Basophils % 0.5 Nucleated Red Blood Cells % 0.0 Neutrophils # 7.8 H Lymphocytes # 1.5 Monocytes # 0.8 Eosinophils # 0.2 Basophils # 0.1 Nucleated Red Blood Cells # 0.0 Sodium Level 136 Potassium Level 3.7 Chloride Level 103 Carbon Dioxide Level 29 Anion Gap 8 Blood Urea Nitrogen 10 Creatinine 0.67 0.67 Glucose Level 119 Calcium Level 8.4 Total Bilirubin 0.2 Direct Bilirubin 0.00 Indirect Bilirubin 0.2 Aspartate Amino Transf (AST/SGOT) 32 Alanine Aminotransferase (ALT/SGPT) 52 Alkaline Phosphatase 88 Total Protein 6.0 L Albumin 3.0 L Globulin 3.00 Albumin/Globulin Ratio 1.00 Urine Color LT. YELLOW Urine Clarity CLEAR Urine pH 6.0 Urine Specific [place] 1.015 Urine Ketones NEGATIVE Urine Nitrite POSITIVE H Urine Bilirubin NEGATIVE Urine Urobilinogen 0.2 E.U./dL Urine Leukocyte Esterase 2+ H Urine Microscopic RBC >50 Urine Microscopic WBC >50 Urine Epithelial Cells MODERATE Urine Bacteria MANY Urine Hemoglobin 2+ H Urine Glucose NEGATIVE Urine Total Protein TRACE Medications Medications Current Medications Potassium Cl/ Dextrose/Lact Ringer's (D5-Lr + KCl 20 Meq) 1,000 ml @ 60 mls/hr [id number] IV Last administered on 10/21/16t 04:26; Admin Dose 60 MLS/HR; Start at 17:00 Dimethicone (Blistex Lip [place]) 1 applic Q2H PRN TOP CHAPPED LIPS; Start at 09:30 Diphenhydramine HCl (Benadryl) 25 mg Q6H PRN IV ITCHING Last administered on 14:19; Admin Dose 25 MG; Start 10/11/16 at 16:19 Hydralazine HCl 10 mg 10 mg Q4H PRN IV ELEVATED BLOOD PRESSURE; Start 10/15/16 at 10:00 Acetaminophen (Ofirmev 1000mg/ 100ml Iv) 100 ml @ 400 mls/hr Q6H PRN IVPB HEADACHE Last administered on 10/24/16 07:38; Admin Dose 400 MLS/HR; Start at 10:00 IV Flush (NS 10 ml) 10 ml PRN PRN IV FLUSH LINE Last administered on 10/22/16 20:40; Admin Dose 10 ML; Start 10/16/16 at 11:00 Tramadol HCl (Ultram) 50 mg Q6H PRN PO PAIN LEVEL 6-10 Last administered on 07:47; Admin Dose 50 MG; Start 10/19/16 at 23:00 Hydromorphone HCl (Dilaudid) 0.5 mg Q8 PRN IV PAIN Last administered on 23:12; Admin Dose 0.5 MG; Start 10/23/16 at 06:00 Pantoprazole 40 mg 40 mg DAILY@06 PO Last administered on 10/25/16 05:30; Admin Dose 40 MG; Start 10/25/16 at 06:00 Ondansetron HCl/ Dextrose (Zofran Inj/D5W) 54 ml @ 108 mls/hr Q8H PRN IV NAUSEA AND/OR VOMITING; Start 10/24/16 at 17:30 Prochlorperazine 10 mg 10 mg Q8H PRN IV NAUSEA AND/OR VOMITING; Start 10/24/16 at 17:30 Sodium Chloride 1,000 ml @ 150 mls/hr Q6H40M PRN IV INFUSE DURING IFOSFAMIDE; Start 10/25/16 at 20:00 Ondansetron HCl/ Dexamethasone/ Dextrose (Zofran Inj/ Decadron/D5W) 60.5 ml @ 252 mls/hr ONCE IV ; Start 10/25/16 at 20:30; Stop 10/25/16 at 20:45 Famotidine (Pepcid Iv) 20 mg ONCE IV ; Start 10/25/16 at 20:30; Stop 10/25/16 at 20:45 Diphenhydramine HCl (Benadryl) 25 mg ONCE IV ; Start 10/25/16 at 20:30; Stop at 20:45 Diphenhydramine HCl (Benadryl) 25 mg Q4H PRN IV ALLERGIC REACTION; Start at 09:30 Dexamethasone 10 mg 10 mg Q4H PRN IV ALLERGIC REACTION; Start 10/25/16 at 09:30 Ondansetron HCl/ Sodium Chloride (Zofran Inj/NS) 54 ml @ 216 mls/hr Q8H PRN IV NAUSEA AND/OR VOMITING; Start 10/25/16 at 09:30 Dexamethasone (Decadron) 20 mg Q6H PO Last administered on 10/25/16t 11:31; Admin Dose 20 MG; Start 10/25/16 at 11:00; Stop 10/25/16 at 17:01 LATRICIA GABRIEL Oct 25, 2016 15:12
--- NOTE | 2016-10-25 15:56 | CONS ---
Date/Time of Note Date/Time of Note DATE: 10/25/16 TIME: 15:47 Assessment/Plan Assessment/Plan Chief Complaint/Hosp Course The patient is a 56-year-old female with recent diagnosis of endometrial cancer on 09/17/2016 by endometrial biopsy. The patient was diagnosed with stage IV endometrial cancer. She underwent massive surgical procedure with CYNDI/ BSO and recto-sigmoid en-bloc with low anastomosis per Dr. Bueno on 10/11/16. She had extensive positive retroperitoneal lymph nodes removed but the confluence of disease makes her classified as millimeter residual disease. - Path report shows metastatic carcinosarcoma. Ifosfamide/taxol regimen is commonly used, however per Dr. Bueno, more recently several phase II articles produced as good or better results with Carbo/Taxol. There is an ongoing Phase III GOG study (GOG 261) that randomizes patients to Carbo/Taxol vs. Ifosfamide/Taxol for advanced stage disease, however the data are not yet mature. Given how advanced and serious, Dr. Bueno, would like to treat with 8 cycles of each regimen. Side effects including N/V, fatigue, myelosuppression , allergic reaction, confusion, hemorrhagic cystitis discussed with the patient. Per Dr. Kitchen of pathology, tumor is poorly differentiated though mostly sarcoma (90%) in the metastases. In the primary tumor, it is even hard to find the carcinoma component. On the basis of these findings, I prefer to start with the ifosfamide/taxol regimen and in the meantime, Dr. Bueno will arrange for a second opinion on the path. Case discussed with Dr. Catherine. Plan to premedicate with decadron 12 hours and 6 hours prior to chemo, then start chemotherapy with Ifosfamide/taxol once chemo arrives. Will obtain daily UA prior to each dose of ifosfamide to monitor for hemorrhagic cystitis. Will also monitor for encephalopathy with ifosfamide. - Continue post-op care. Plan to mobilize and advance diet as tolerated. - Discussed with Dr. Bueno, will hold off on CT scan at this time as would be difficult to tell the difference between reactive tissue postop and metastatic disease. Additionally, oral contrast could harm her anastomosis. Prior CT A/P with and without contrast 10/02/16 demonstrated metastatic spread with bilateral right greater than left adnexal lesions, with areas of infiltration and nodularity within the right paracolic gutter and transverse mesocolon. - PICC line placed for TPN, can also use for chemotherapy # Pyuria, with +nit, LE, many bacteria would recommend treating as UTI given patient will be started on chemotherapy tonight. Patient started on ceftriaxone. # Thrombocytosis, likely reactive. Continue to monitor. Check ESR, CRP. Consider aspirin or prophylactic lovenox if continues to be elvated. Will continue to follow. Problems: Consultation Date/Type/Reason Admit Date/Time Oct 10, 2016 at 09:46 Initial Consult Date 10/12/16 Type of Consultation: Oncology 24 HR Interval Summary Free Text/Dictation Patient eating well and ambulating. No complaints. Denies hematuria. Exam/Review of Systems Vital Signs Vitals Vital Signs Date Time Temp Pulse Resp B/P Pulse Ox O2 Delivery O2 Flow Rate FiO2 10/25/16 07:32 98.2 96 20 132/80 96 Intake and Output 10/24/16 10/24/16 10/25/16 15:00 23:00 07:00 Intake Total 100 ml 880 ml 360 ml Output Total 275 ml 240 ml Balance 100 ml 605 ml 120 ml Exam Constitutional: alert, oriented Psych: no complaints Head: atraumatic, normocephalic Eyes: nl conjunctiva Neck: supple Respiratory: clear to auscultation Cardiovascular: regular rate and rhythm Gastrointestinal: non-tender, other (ag c/d/i), soft Musculoskeletal: nl extremities to inspection Results Result Diagram: 10/25/16 0425 10/25/16 1140 Results 24 hrs Laboratory Tests Test 10/25/16 04:25 10/25/16 07:30 10/25/16 11:40 White Blood Count 10.3 Red Blood Count 4.15 L Hemoglobin 11.5 L Hematocrit 37.1 Mean Corpuscular Volume 89.4 Mean Corpuscular Hemoglobin 27.7 L Mean Corpuscular Hemoglobin Concent 31.0 L Red Cell Distribution Width 13.0 Platelet Count 599 #H Mean Platelet Volume 9.1 Neutrophils % 75.4 Lymphocytes % 14.1 L Monocytes % 7.8 Eosinophils % 1.8 Basophils % 0.5 Nucleated Red Blood Cells % 0.0 Neutrophils # 7.8 H Lymphocytes # 1.5 Monocytes # 0.8 Eosinophils # 0.2 Basophils # 0.1 Nucleated Red Blood Cells # 0.0 Sodium Level 136 Potassium Level 3.7 Chloride Level 103 Carbon Dioxide Level 29 Anion Gap 8 Blood Urea Nitrogen 10 Creatinine 0.67 0.67 Glucose Level 119 Calcium Level 8.4 Total Bilirubin 0.2 Direct Bilirubin 0.00 Indirect Bilirubin 0.2 Aspartate Amino Transf (AST/SGOT) 32 Alanine Aminotransferase (ALT/SGPT) 52 Alkaline Phosphatase 88 Total Protein 6.0 L Albumin 3.0 L Globulin 3.00 Albumin/Globulin Ratio 1.00 Urine Color LT. YELLOW Urine Clarity CLEAR Urine pH 6.0 Urine Specific [place] 1.015 Urine Ketones NEGATIVE Urine Nitrite POSITIVE H Urine Bilirubin NEGATIVE Urine Urobilinogen 0.2 E.U./dL Urine Leukocyte Esterase 2+ H Urine Microscopic RBC >50 Urine Microscopic WBC >50 Urine Epithelial Cells MODERATE Urine Bacteria MANY Urine Hemoglobin 2+ H Urine Glucose NEGATIVE Urine Total Protein TRACE Medications Medications Current Medications Potassium Cl/ Dextrose/Lact Ringer's (D5-Lr + KCl 20 Meq) 1,000 ml @ 60 mls/hr [id number] IV Last administered on 10/21/16 04:26; Admin Dose 60 MLS/HR; Start at 17:00 Dimethicone (Blistex Lip [place]) 1 applic Q2H PRN TOP CHAPPED LIPS; Start at 09:30 Diphenhydramine HCl (Benadryl) 25 mg Q6H PRN IV ITCHING Last administered on 14:19; Admin Dose 25 MG; Start 10/11/16 at 16:19 Hydralazine HCl 10 mg 10 mg Q4H PRN IV ELEVATED BLOOD PRESSURE; Start 10/15/16 at 10:00 Acetaminophen (Ofirmev 1000mg/ 100ml Iv) 100 ml @ 400 mls/hr Q6H PRN IVPB HEADACHE Last administered on 10/24/16 07:38; Admin Dose 400 MLS/HR; Start at 10:00 IV Flush (NS 10 ml) 10 ml PRN PRN IV FLUSH LINE Last administered on 10/22/16 20:40; Admin Dose 10 ML; Start 10/16/16 at 11:00 Tramadol HCl (Ultram) 50 mg Q6H PRN PO PAIN LEVEL 6-10 Last administered on 07:47; Admin Dose 50 MG; Start 10/19/16 at 23:00 Hydromorphone HCl (Dilaudid) 0.5 mg Q8 PRN IV PAIN Last administered on 23:12; Admin Dose 0.5 MG; Start 10/23/16 at 06:00 Pantoprazole 40 mg 40 mg DAILY@06 PO Last administered on 10/25/16 05:30; Admin Dose 40 MG; Start 10/25/16 at 06:00 Ondansetron HCl/ Dextrose (Zofran Inj/D5W) 54 ml @ 108 mls/hr Q8H PRN IV NAUSEA AND/OR VOMITING; Start 10/24/16 at 17:30 Prochlorperazine 10 mg 10 mg Q8H PRN IV NAUSEA AND/OR VOMITING; Start 10/24/16 at 17:30 Sodium Chloride 1,000 ml @ 150 mls/hr Q6H40M PRN IV INFUSE DURING IFOSFAMIDE; Start 10/25/16 at 20:00 Ondansetron HCl/ Dexamethasone/ Dextrose (Zofran Inj/ Decadron/D5W) 60.5 ml @ 252 mls/hr Q24H IV ; Start 10/25/16 at 21:00; Stop 10/27/16 at 21:15 Famotidine (Pepcid Iv) 20 mg ONCE IV ; Start 10/25/16 at 20:30; Stop 10/25/16 at 20:45 Dexamethasone (Decadron) 20 mg Q6H PO Last administered on 10/25/16 11:31; Admin Dose 20 MG; Start 10/25/16 at 11:00; Stop 10/25/16 at 17:01 Hydrocortisone (Solu-Cortef) 100 mg PRN PRN IV ALLERGIC REACTION; Start at 22:00 Diphenhydramine HCl (Benadryl) 50 mg PRN PRN IV ALLERGIC REACTION; Start at 22:00 Filgrastim (Neupogen) 480 mcg DAILY@17 SC ; Start 10/28/16 at 17:00 TOLINDA MD Oct 25, 2016 15:56
[2016-10-25] MEDS: CEFTRIAXONE 1 GM/50 ML (PMX) 50 ML IVPB SCH (17:05)
[2016-10-25] MEDS: D5-LR + KCL 20 MEQ 1,000 ML IV SCH (18:26)
[2016-10-25] MEDS ORDERED: DIPHENHYDRAMINE 50 MG INJ IV SCH (20:30)
--- NOTE | 2016-10-25 21:17 | PN ---
Date/Time of Note Date/Time of Note DATE: 10/25/16 TIME: 21:14 Assessment/Plan VTE Prophylaxis VTE Prophylaxis Intervention: SCD's Lines/Catheters IV Catheter Type (from Nrs): PICC Line Central line still needed: Yes Urinary Cath still in place: No Assessment/Plan Chief Complaint/Hosp Course stage IV endometrial cancer Problems: Assessment/Plan A- doing well High drain output probably lymphatic drainage as + nodes that were debulked massive and extensive; creatinine on fluid equal to serum therefore not urine P- concur with chemo Will remove drain in 1-2 wks in office Subjective 24 Hr Interval Summary Free Text/Dictation + BM and less pain. OOB more. Exam/Review of Systems Vital Signs Vitals Vital Signs Date Time Temp Pulse Resp B/P Pulse Ox O2 Delivery O2 Flow Rate FiO2 10/25/16 20:27 98.5 120 18 123/67 99 Intake and Output 10/24/16 10/24/16 10/25/16 15:00 23:00 07:00 Intake Total 100 ml 880 ml 360 ml Output Total 275 ml 240 ml Balance 100 ml 605 ml 120 ml Exam Cardiovascular: nl pulses, regular rate and rhythm Gastrointestinal: non-tender, soft Extremities: normal pulses Results Result Diagram: 10/25/16 0425 10/25/16 1140 Results 24 hrs Laboratory Tests Test 10/25/16 04:25 10/25/16 07:30 10/25/16 11:40 White Blood Count 10.3 Red Blood Count 4.15 L Hemoglobin 11.5 L Hematocrit 37.1 Mean Corpuscular Volume 89.4 Mean Corpuscular Hemoglobin 27.7 L Mean Corpuscular Hemoglobin Concent 31.0 L Red Cell Distribution Width 13.0 Platelet Count 599 #H Mean Platelet Volume 9.1 Neutrophils % 75.4 Lymphocytes % 14.1 L Monocytes % 7.8 Eosinophils % 1.8 Basophils % 0.5 Nucleated Red Blood Cells % 0.0 Neutrophils # 7.8 H Lymphocytes # 1.5 Monocytes # 0.8 Eosinophils # 0.2 Basophils # 0.1 Nucleated Red Blood Cells # 0.0 Sodium Level 136 Potassium Level 3.7 Chloride Level 103 Carbon Dioxide Level 29 Anion Gap 8 Blood Urea Nitrogen 10 Creatinine 0.67 0.67 Glucose Level 119 Calcium Level 8.4 Total Bilirubin 0.2 Direct Bilirubin 0.00 Indirect Bilirubin 0.2 Aspartate Amino Transf (AST/SGOT) 32 Alanine Aminotransferase (ALT/SGPT) 52 Alkaline Phosphatase 88 Total Protein 6.0 L Albumin 3.0 L Globulin 3.00 Albumin/Globulin Ratio 1.00 Urine Color LT. YELLOW Urine Clarity CLEAR Urine pH 6.0 Urine Specific [place] 1.015 Urine Ketones NEGATIVE Urine Nitrite POSITIVE H Urine Bilirubin NEGATIVE Urine Urobilinogen 0.2 E.U./dL Urine Leukocyte Esterase 2+ H Urine Microscopic RBC >50 Urine Microscopic WBC >50 Urine Epithelial Cells MODERATE Urine Bacteria MANY Urine Hemoglobin 2+ H Urine Glucose NEGATIVE Urine Total Protein TRACE Medications Medications Current Medications Potassium Cl/ Dextrose/Lact Ringer's (D5-Lr + KCl 20 Meq) 1,000 ml @ 60 mls/hr [id number] IV Last administered on 10/25/16 18:26; Admin Dose 60 MLS/HR; Start at 17:00 Dimethicone (Blistex Lip [place]) 1 applic Q2H PRN TOP CHAPPED LIPS; Start at 09:30 Diphenhydramine HCl (Benadryl) 25 mg Q6H PRN IV ITCHING Last administered on 14:19; Admin Dose 25 MG; Start 10/11/16 at 16:19 Hydralazine HCl 10 mg 10 mg Q4H PRN IV ELEVATED BLOOD PRESSURE; Start 10/15/16 at 10:00 Acetaminophen (Ofirmev 1000mg/ 100ml Iv) 100 ml @ 400 mls/hr Q6H PRN IVPB HEADACHE Last administered on 10/24/16 07:38; Admin Dose 400 MLS/HR; Start at 10:00 IV Flush (NS 10 ml) 10 ml PRN PRN IV FLUSH LINE Last administered on 10/22/16 20:40; Admin Dose 10 ML; Start 10/16/16 at 11:00 Tramadol HCl (Ultram) 50 mg Q6H PRN PO PAIN LEVEL 6-10 Last administered on 07:47; Admin Dose 50 MG; Start 10/19/16 at 23:00 Hydromorphone HCl (Dilaudid) 0.5 mg Q8 PRN IV PAIN Last administered on 23:12; Admin Dose 0.5 MG; Start 10/23/16 at 06:00 Pantoprazole 40 mg 40 mg DAILY@06 PO Last administered on 10/25/16t 05:30; Admin Dose 40 MG; Start 10/25/16 at 06:00 Ondansetron HCl/ Dextrose (Zofran Inj/D5W) 54 ml @ 108 mls/hr Q8H PRN IV NAUSEA AND/OR VOMITING; Start 10/24/16 at 17:30 Prochlorperazine 10 mg 10 mg Q8H PRN IV NAUSEA AND/OR VOMITING; Start 10/24/16 at 17:30 Sodium Chloride 1,000 ml @ 150 mls/hr Q6H40M PRN IV INFUSE DURING IFOSFAMIDE; Start 10/25/16 at 20:00 Ondansetron HCl/ Dexamethasone/ Dextrose (Zofran Inj/ Decadron/D5W) 60.5 ml @ 252 mls/hr Q24H IV ; Start 10/25/16 at 21:00; Stop 10/27/16 at 21:15 Famotidine (Pepcid Iv) 20 mg Q24H IV ; Start 10/25/16 at 21:00; Stop 10/27/16 at 21:01 Hydrocortisone (Solu-Cortef) 100 mg PRN PRN IV ALLERGIC REACTION; Start at 22:00 Diphenhydramine HCl (Benadryl) 50 mg PRN PRN IV ALLERGIC REACTION; Start at 22:00 Filgrastim (Neupogen) 480 mcg DAILY@17 SC ; Start 10/28/16 at 17:00 Diphenhydramine HCl 25 mg 25 mg ONCE IV ; Start 10/26/16 at 00:00; Stop at 01:00 Ifosfamide 2.88 gm/Sodium Chloride 307.6 ml @ 125 mls/hr Q24H IV ; Start at 22:00; Stop 10/28/16 at 00:28 Paclitaxel 200 mg/ Paclitaxel 43 mg/ Sodium Chloride 540.5 ml @ 180.167 mls/hr ONCE IV ; Start 10/26/16 at 01:00; Stop 10/26/16 at 03:59 [place] 2000 mg/ Sodium Chloride 500 ml @ 41.667 mls/ hr Q24H IV ; Start at 21:45; Stop 10/28/16 at 09:44 Ceftriaxone Sodium (Rocephin) 50 ml @ 100 mls/hr Q24H IVPB Last administered on 10/25/16t 17:05; Admin Dose 100 MLS/HR; Start 10/25/16 at 17:00 NUPUR RODRÍGUEZ MD Oct 25, 2016 21:17
[2016-10-25] MEDS: SOD CHLORIDE 0.9% 1,000 ML IV PRN (21:41)
[2016-10-25] MEDS: FAMOTIDINE 20 MG INJ IV SCH (21:41)
[2016-10-25] MEDS: ONDANSETRON INJ 16 MG, DEXAMETHASONE 4 MG/ML 10 MG in DEXTROSE 5% 50 ML IV SCH (21:41)
[2016-10-25] MEDS ORDERED: HYDROCORTISONE 100 MG INJ IV PRN (22:00)
[2016-10-25] MEDS: MESNA IV SCH (22:13)
[2016-10-25] MEDS: SOD CHLORIDE 0.9% IV SCH ×2 (22:13→22:34)
[2016-10-25] MEDS: IFOSFAMIDE IV SCH (22:34)
[2016-10-26] VITALS (20 sets, daily range): BP systolic 115–138; BP diastolic 61–80; PULSE 67–101; RESP 16–20
[2016-10-26] MEDS: SOD CHLORIDE 0.9% IV SCH ×4 (01:00→22:37)
[2016-10-26] MEDS: PACLITAXEL IV SCH ×2 (01:00→03:10)
[2016-10-26] MEDS: HYDROmorphONE 1 MG/ML SYG IV PRN ×2 (01:21→15:01)
[2016-10-26] MEDS: DIPHENHYDRAMINE 50 MG INJ IV SCH ×2 (03:02)
[2016-10-26] MEDS: SOD CHLORIDE 0.9% 1,000 ML IV PRN ×2 (04:14→22:36)
[2016-10-26] MEDS: PANTOPRAZOLE (EC) 40 MG TAB PO SCH (05:11)
[2016-10-26 05:20] LABS: ADD SCAN DIFF NO
[2016-10-26 05:30] LABS: ABNORMAL IP MESSAGE 1; BASOPHILS % 0.1 % (0.0-2.0); HEMATOCRIT 30.7 % (37.0-47.0); HEMOGLOBIN 9.7 g/dl (12.0-16.0); LYMPHOCYTES # 0.6 10^3/ul (0.8-2.9); LYMPHOCYTES % 4.8 % (15.0-51.0); MEAN CORPUSCULAR HGB CONC 31.6 g/dl (32.0-37.0); MEAN CORPUSCULAR VOLUME 88.7 fl (82.0-101.0); MEAN PLATELET VOLUME 9.2 fl (7.4-10.4); MONOCYTE # 0.6 10^3/ul (0.3-0.9); NEUTROPHIL # 10.7 10^3/ul (1.6-7.5); NEUTROPHILS % 89.5 % (39.0-77.0); PLATELET COUNT 485 10^3/UL (140-415); RED BLOOD COUNT 3.46 10^6/ul (4.20-5.40); RED CELL DISTRIBUTION WIDTH 12.8 % (11.5-14.5)
[2016-10-26 05:40] LABS: ALBUMIN 2.3 g/dl (3.3-4.9); POTASSIUM 3.9 mmol/L (3.5-5.1)
[2016-10-26 05:42] LABS: BILIRUBIN,INDIRECT 0.1 mg/dl (0-1.1); BILIRUBIN,TOTAL 0.1 mg/dl (0.2-1.3); CREATININE 0.66 mg/dl (0.44-1.00)
[2016-10-26 05:43] LABS: ALBUMIN/GLOBULIN RATIO 0.85; CALCIUM 7.8 mg/dl (8.4-10.2)
[2016-10-26] MEDS: D5-LR + KCL 20 MEQ 1,000 ML IV SCH ×2 (06:28→23:08)
[2016-10-26 10:39] LABS: ADD UMIC YES; URINE BILIRUBIN (Dip) NEGATIVE (NEGATIVE); URINE BLOOD (Dip) TRACE (NEGATIVE); URINE COLOR LT. YELLOW (YELLOW); URINE GLUCOSE (Dip) NEGATIVE (NEGATIVE); URINE KETONES (Dip) 3+ (NEGATIVE); URINE LEUKOCYTE ESTERASE (Dip) 1+ (NEGATIVE); URINE NITRITE (Dip) NEGATIVE (NEGATIVE); URINE TOTAL PROTEIN (Dip) NEGATIVE (NEGATIVE); URINE UROBILINOGEN (Dip) 0.2 E.U./dL (0.1-1.0)
[2016-10-26 11:03] LABS: URINE RBCS 0-2 /HPF (0)
--- NOTE | 2016-10-26 13:32 | PN ---
Date/Time of Note Date/Time of Note DATE: 10/26/16 TIME: 13:30 Assessment/Plan VTE Prophylaxis VTE Prophylaxis Intervention: SCD's Lines/Catheters IV [facility] PICC Line Central line still needed: Yes Urinary Cath still in place: No Assessment/Plan Chief Complaint/Hosp Course stage IV endometrial cancer Problems: Assessment/Plan A- doing well and tolerating Rx. P- RTO after d/c and anticipate d/c after chemo Subjective 24 Hr Interval Summary Free Text/Dictation Feels good and tolerating chemo well. Exam/Review of Systems Vital Signs Vitals Vital Signs Date Time Temp Pulse Resp B/P Pulse Ox O2 Delivery O2 Flow Rate FiO2 10/26/16 09:00 98.0 75 18 128/70 98 Nasal Cannula 2.0 Intake and Output 10/25/16 10/25/16 10/26/16 15:00 23:00 07:00 Intake Total 1110.5 ml 2657.6 ml Output Total 160 ml 180 ml 400 ml Balance -160 ml 930.5 ml 2257.6 ml Exam Respiratory: normal air movement Cardiovascular: regular rate and rhythm, No nl pulses Gastrointestinal: soft Musculoskeletal: nl extremities to inspection Extremities: No calf tenderness, No clubbing, No cyanosis, No edema, No normal pulses, No other, No palpable cord, No pitting pedal edema, No tenderness Results Result Diagram: 10/26/16 0432 10/26/16 0432 Results 24 hrs Laboratory Tests Test 10/26/16 04:32 10/26/16 09:25 White Blood Count 12.0 H Red Blood Count 3.46 L Hemoglobin 9.7 L Hematocrit 30.7 L Mean Corpuscular Volume 88.7 Mean Corpuscular Hemoglobin 28.0 L Mean Corpuscular Hemoglobin Concent 31.6 L Red Cell Distribution Width 12.8 Platelet Count 485 H Mean Platelet Volume 9.2 Neutrophils % 89.5 H Lymphocytes % 4.8 L Monocytes % 5.0 Eosinophils % 0.0 Basophils % 0.1 Nucleated Red Blood Cells % 0.0 Neutrophils # 10.7 H Lymphocytes # 0.6 L Monocytes # 0.6 Eosinophils # 0.0 Basophils # 0.0 Nucleated Red Blood Cells # 0.0 Erythrocyte Sedimentation Rate 45 H Sodium Level 138 Potassium Level 3.9 Chloride Level 105 Carbon Dioxide Level 25 Anion Gap 12 Blood Urea Nitrogen 11 Creatinine 0.66 Glucose Level 131 Calcium Level 7.8 L Total Bilirubin 0.1 L Direct Bilirubin 0.00 Indirect Bilirubin 0.1 Aspartate Amino Transf (AST/SGOT) 23 Alanine Aminotransferase (ALT/SGPT) 36 Alkaline Phosphatase 60 C-Reactive Protein 4.6 H Total Protein 5.0 #L Albumin 2.3 L Globulin 2.70 Albumin/Globulin Ratio 0.85 Urine Color LT. YELLOW Urine Clarity CLEAR Urine pH 5.5 Urine Specific [place] 1.025 Urine Ketones 3+ H Urine Nitrite NEGATIVE Urine Bilirubin NEGATIVE Urine Urobilinogen 0.2 E.U./dL Urine Leukocyte Esterase 1+ H Urine Microscopic RBC 0-2 Urine Microscopic WBC 5-10 Urine Epithelial Cells OCCASIONAL Urine Hemoglobin TRACE Urine Glucose NEGATIVE Urine Total Protein NEGATIVE Medications Medications Current Medications Potassium Cl/ Dextrose/Lact Ringer's (D5-Lr + KCl 20 Meq) 1,000 ml @ 60 mls/hr [id number] IV Last administered on 10/25/16 18:26; Admin Dose 60 MLS/HR; Start at 17:00 Dimethicone (Blistex Lip [place]) 1 applic Q2H PRN TOP CHAPPED LIPS; Start at 09:30 Diphenhydramine HCl (Benadryl) 25 mg Q6H PRN IV ITCHING Last administered on 14:19; Admin Dose 25 MG; Start 10/11/16 at 16:19 Hydralazine HCl 10 mg 10 mg Q4H PRN IV ELEVATED BLOOD PRESSURE; Start 10/15/16 at 10:00 Acetaminophen (Ofirmev 1000mg/ 100ml Iv) 100 ml @ 400 mls/hr Q6H PRN IVPB HEADACHE Last administered on 10/24/16 07:38; Admin Dose 400 MLS/HR; Start at 10:00 IV Flush (NS 10 ml) 10 ml PRN PRN IV FLUSH LINE Last administered on 10/22/16 20:40; Admin Dose 10 ML; Start 10/16/16 at 11:00 Tramadol HCl (Ultram) 50 mg Q6H PRN PO PAIN LEVEL 6-10 Last administered on 07:47; Admin Dose 50 MG; Start 10/19/16 at 23:00 Hydromorphone HCl (Dilaudid) 0.5 mg Q8 PRN IV PAIN Last administered on 01:21; Admin Dose 0.5 MG; Start 10/23/16 at 06:00 Pantoprazole 40 mg 40 mg DAILY@06 PO Last administered on 10/26/16 05:11; Admin Dose 40 MG; Start 10/25/16 at 06:00 Ondansetron HCl/ Dextrose (Zofran Inj/D5W) 54 ml @ 108 mls/hr Q8H PRN IV NAUSEA AND/OR VOMITING; Start 10/24/16 at 17:30 Prochlorperazine 10 mg 10 mg Q8H PRN IV NAUSEA AND/OR VOMITING; Start 10/24/16 at 17:30 Sodium Chloride 1,000 ml @ 150 mls/hr Q6H40M PRN IV INFUSE DURING IFOSFAMIDE Last administered on 10/26/16 04:14; Admin Dose 150 MLS/HR; Start 10/25/16 at 20:00 Ondansetron HCl/ Dexamethasone/ Dextrose (Zofran Inj/ Decadron/D5W) 60.5 ml @ 252 mls/hr Q24H IV Last administered on 10/25/16 21:41; Admin Dose 252 MLS/HR ; Start 10/25/16 at 21:00; Stop 10/27/16 at 21:15 Famotidine (Pepcid Iv) 20 mg Q24H IV Last administered on 10/25/16 21:41; Admin Dose 20 MG; Start 10/25/16 at 21:00; Stop 10/27/16 at 21:01 Hydrocortisone (Solu-Cortef) 100 mg PRN PRN IV ALLERGIC REACTION; Start at 22:00 Diphenhydramine HCl (Benadryl) 50 mg PRN PRN IV ALLERGIC REACTION; Start at 22:00 Filgrastim 480 mcg 480 mcg DAILY@17 SC ; Start 10/28/16 at 17:00 Ifosfamide 2.88 gm/Sodium Chloride 307.6 ml @ 125 mls/hr Q24H IV Last administered on 10/25/16 22:34; Admin Dose 125 MLS/HR; Start 10/25/16 at 22:00 ; Stop 10/28/16 at 00:28 [place] 2000 mg/ Sodium Chloride 500 ml @ 41.667 mls/ hr Q24H IV Last administered on 10/25/16 22:13; Admin Dose 41.667 MLS/HR; Start 10/25/16 at 21: 45; Stop 10/28/16 at 09:44 Ceftriaxone Sodium (Rocephin) 50 ml @ 100 mls/hr Q24H IVPB Last administered on 10/25/16 17:05; Admin Dose 100 MLS/HR; Start 10/25/16 at 17:00 NUPUR RODRÍGUEZ MD Oct 26, 2016 13:32
--- NOTE | 2016-10-26 14:36 | CONS ---
Date/Time of Note Date/Time of Note DATE: 10/26/16 TIME: 14:33 Assessment/Plan Assessment/Plan Chief Complaint/Hosp Course The patient is a 56-year-old female with recent diagnosis of endometrial cancer on 09/17/2016 by endometrial biopsy. The patient was diagnosed with stage IV endometrial cancer. She underwent massive surgical procedure with CYNDI/ BSO and recto-sigmoid en-bloc with low anastomosis per Dr. Bueno on 10/11/16. She had extensive positive retroperitoneal lymph nodes removed but the confluence of disease makes her classified as millimeter residual disease. - Path report shows metastatic carcinosarcoma. Ifosfamide/taxol regimen is commonly used, however per Dr. Bueno, more recently several phase II articles produced as good or better results with Carbo/Taxol. There is an ongoing Phase III GOG study (GOG 261) that randomizes patients to Carbo/Taxol vs. Ifosfamide/Taxol for advanced stage disease, however the data are not yet mature. Given how advanced and serious, Dr. Bueno, would like to treat with 8 cycles of each regimen. Side effects including N/V, fatigue, myelosuppression , allergic reaction, confusion, hemorrhagic cystitis discussed with the patient. Per Dr. Kitchen of pathology, tumor is poorly differentiated though mostly sarcoma (90%) in the metastases. In the primary tumor, it is even hard to find the carcinoma component. On the basis of these findings, I prefer to start with the ifosfamide/taxol regimen and in the meantime, Dr. Bueno will arrange for a second opinion on the path. Case discussed with Dr. Catherine. Patient started on Ifosfamide/taxol 10/25/16, tolerating well thus far. - Will obtain daily UA prior to each dose of ifosfamide to monitor for hemorrhagic cystitis. UA today shows 0-2 RBC. - Will also monitor for encephalopathy with ifosfamide. - Avoid benzodiazepines or ambient while receiving ifosfamide. Patient will need to be re-admitted in 3 weeks for cycle 2 ifosfamide/taxol Chemo regimen (started 10/25/16) Ifosfamide 1600 mg/mg2 IV once per week D1-3 Paclitaxel 135 mg/m2 IV over 3 hours D1 [place] 2000 mg IV over 12 hours once per day (15 minutes before ifosfamide) D1-3 Decadron 20 mg PO 12 hours and 6 hours prior to paclitaxel Neupogen 480 mcg subcutaneous once per day starting D4 until ANC > 2000 - Continue post-op care. Plan to mobilize and advance diet as tolerated. - Discussed with Dr. Bueno, will hold off on CT scan at this time as would be difficult to tell the difference between reactive tissue postop and metastatic disease. Additionally, oral contrast could harm her anastomosis. Prior CT A/P with and without contrast 10/02/16 demonstrated metastatic spread with bilateral right greater than left adnexal lesions, with areas of infiltration and nodularity within the right paracolic gutter and transverse mesocolon. - PICC line placed for TPN, can also use for chemotherapy # Pyuria, with +nit, LE, many bacteria would treat as UTI given patient on chemo. Patient started on ceftriaxone. # Thrombocytosis, likely reactive with elevated ESR and CRP. Continue to monitor. Consider aspirin or prophylactic lovenox if continues to be elevated. Improved today to 485. Will continue to follow. Problems: Consultation Date/Type/Reason Admit Date/Time Oct 10, 2016 at 09:46 Initial Consult Date 10/12/16 Type of Consultation: Oncology 24 HR Interval Summary Free Text/Dictation Feels good and tolerating chemo well. No N/V, no confusion, no gross hematuria , no dysuria. D2 chemo tonight. Exam/Review of Systems Vital Signs Vitals Vital Signs Date Time Temp Pulse Resp B/P Pulse Ox O2 Delivery O2 Flow Rate FiO2 10/26/16 09:00 98.0 75 18 128/70 98 Nasal Cannula 2.0 Intake and Output 10/25/16 10/25/16 10/26/16 15:00 23:00 07:00 Intake Total 1110.5 ml 2657.6 ml Output Total 160 ml 180 ml 400 ml Balance -160 ml 930.5 ml 2257.6 ml Exam Constitutional: alert, oriented Psych: no complaints Head: atraumatic, normocephalic Eyes: nl conjunctiva Neck: supple Respiratory: clear to auscultation Cardiovascular: regular rate and rhythm Gastrointestinal: non-tender, other (ag c/d/i), soft Musculoskeletal: nl extremities to inspection Results Result Diagram: 10/26/1643110/26/16431 Results 24 hrs Laboratory Tests Test 10/26/16 04:32 10/26/16 09:25 White Blood Count 12.0 H Red Blood Count 3.46 L Hemoglobin 9.7 L Hematocrit 30.7 L Mean Corpuscular Volume 88.7 Mean Corpuscular Hemoglobin 28.0 L Mean Corpuscular Hemoglobin Concent 31.6 L Red Cell Distribution Width 12.8 Platelet Count 485 H Mean Platelet Volume 9.2 Neutrophils % 89.5 H Lymphocytes % 4.8 L Monocytes % 5.0 Eosinophils % 0.0 Basophils % 0.1 Nucleated Red Blood Cells % 0.0 Neutrophils # 10.7 H Lymphocytes # 0.6 L Monocytes # 0.6 Eosinophils # 0.0 Basophils # 0.0 Nucleated Red Blood Cells # 0.0 Erythrocyte Sedimentation Rate 45 H Sodium Level 138 Potassium Level 3.9 Chloride Level 105 Carbon Dioxide Level 25 Anion Gap 12 Blood Urea Nitrogen 11 Creatinine 0.66 Glucose Level 131 Calcium Level 7.8 L Total Bilirubin 0.1 L Direct Bilirubin 0.00 Indirect Bilirubin 0.1 Aspartate Amino Transf (AST/SGOT) 23 Alanine Aminotransferase (ALT/SGPT) 36 Alkaline Phosphatase 60 C-Reactive Protein 4.6 H Total Protein 5.0 #L Albumin 2.3 L Globulin 2.70 Albumin/Globulin Ratio 0.85 Urine Color LT. YELLOW Urine Clarity CLEAR Urine pH 5.5 Urine Specific [place] 1.025 Urine Ketones 3+ H Urine Nitrite NEGATIVE Urine Bilirubin NEGATIVE Urine Urobilinogen 0.2 E.U./dL Urine Leukocyte Esterase 1+ H Urine Microscopic RBC 0-2 Urine Microscopic WBC 5-10 Urine Epithelial Cells OCCASIONAL Urine Hemoglobin TRACE Urine Glucose NEGATIVE Urine Total Protein NEGATIVE Medications Medications Current Medications Potassium Cl/ Dextrose/Lact Ringer's (D5-Lr + KCl 20 Meq) 1,000 ml @ 60 mls/hr [id number] IV Last administered on 10/25/16 18:26; Admin Dose 60 MLS/HR; Start at 17:00 Dimethicone (Blistex Lip [place]) 1 applic Q2H PRN TOP CHAPPED LIPS; Start at 09:30 Diphenhydramine HCl (Benadryl) 25 mg Q6H PRN IV ITCHING Last administered on 14:19; Admin Dose 25 MG; Start 10/11/16 at 16:19 Hydralazine HCl 10 mg 10 mg Q4H PRN IV ELEVATED BLOOD PRESSURE; Start 10/15/16 at 10:00 Acetaminophen (Ofirmev 1000mg/ 100ml Iv) 100 ml @ 400 mls/hr Q6H PRN IVPB HEADACHE Last administered on 10/24/16 07:38; Admin Dose 400 MLS/HR; Start at 10:00 IV Flush (NS 10 ml) 10 ml PRN PRN IV FLUSH LINE Last administered on 10/22/16 20:40; Admin Dose 10 ML; Start 10/16/16 at 11:00 Tramadol HCl (Ultram) 50 mg Q6H PRN PO PAIN LEVEL 6-10 Last administered on 07:47; Admin Dose 50 MG; Start 10/19/16 at 23:00 Hydromorphone HCl (Dilaudid) 0.5 mg Q8 PRN IV PAIN Last administered on 01:21; Admin Dose 0.5 MG; Start 10/23/16 at 06:00 Pantoprazole 40 mg 40 mg DAILY@06 PO Last administered on 10/26/16 05:11; Admin Dose 40 MG; Start 10/25/16 at 06:00 Ondansetron HCl/ Dextrose (Zofran Inj/D5W) 54 ml @ 108 mls/hr Q8H PRN IV NAUSEA AND/OR VOMITING; Start 10/24/16 at 17:30 Prochlorperazine 10 mg 10 mg Q8H PRN IV NAUSEA AND/OR VOMITING; Start 10/24/16 at 17:30 Sodium Chloride 1,000 ml @ 150 mls/hr Q6H40M PRN IV INFUSE DURING IFOSFAMIDE Last administered on 10/26/16 04:14; Admin Dose 150 MLS/HR; Start 10/25/16 at 20:00 Ondansetron HCl/ Dexamethasone/ Dextrose (Zofran Inj/ Decadron/D5W) 60.5 ml @ 252 mls/hr Q24H IV Last administered on 10/25/16 21:41; Admin Dose 252 MLS/HR ; Start 10/25/16 at 21:00; Stop 10/27/16 at 21:15 Famotidine (Pepcid Iv) 20 mg Q24H IV Last administered on 10/25/16 21:41; Admin Dose 20 MG; Start 10/25/16 at 21:00; Stop 10/27/16 at 21:01 Hydrocortisone (Solu-Cortef) 100 mg PRN PRN IV ALLERGIC REACTION; Start at 22:00 Diphenhydramine HCl (Benadryl) 50 mg PRN PRN IV ALLERGIC REACTION; Start at 22:00 Filgrastim 480 mcg 480 mcg DAILY@17 SC ; Start 10/28/16 at 17:00 Ifosfamide 2.88 gm/Sodium Chloride 307.6 ml @ 125 mls/hr Q24H IV Last administered on 10/25/16 22:34; Admin Dose 125 MLS/HR; Start 10/25/16 at 22:00 ; Stop 10/28/16 at 00:28 [place] 2000 mg/ Sodium Chloride 500 ml @ 41.667 mls/ hr Q24H IV Last administered on 10/25/16 22:13; Admin Dose 41.667 MLS/HR; Start 10/25/16 at 21: 45; Stop 10/28/16 at 09:44 Ceftriaxone Sodium (Rocephin) 50 ml @ 100 mls/hr Q24H IVPB Last administered on 10/25/16 17:05; Admin Dose 100 MLS/HR; Start 10/25/16 at 17:00 LINDA SWANSON MD Oct 26, 2016 14:36
--- NOTE | 2016-10-26 16:30 | PN ---
Date/Time of Note Date/Time of Note DATE: 10/26/16 TIME: 16:29 Assessment/Plan VTE Prophylaxis VTE Prophylaxis Intervention: SCD's Lines/Catheters IV Catheter Type (from Nrs): PICC Line Central line still needed: Yes Urinary Cath still in place: No Assessment/Plan Chief Complaint/Hosp Course Assessment and plan: - Stage IV endometrial cancer, status post surgical procedure with CYNDI/BSO and recto-sigmoid en-bloc with low anastomosis by Dr. Bueno on 10/11. Advance diet per surgery. Patient was millimeter residual disease, started on chemotherapy. Dr. Hoang is following in oncology consultation. - Hypertension. Continue hydralazine as needed for systolic blood pressure above 170. - Dyslipidemia. We will resume statins when patient is able to tolerate p.o. - Gastritis. Continue Protonix. Further recommendations based on clinical course. Plan of care discussed with Dr. Richardson. Problems: Subjective 24 Hr Interval Summary Free Text/Dictation Patient is status post chemotherapy dose last night, currently is resting status post pain medication, no fever no nausea vomiting per nurse, she still has a large output from BJ, patient tolerates diet well. Exam/Review of Systems Vital Signs Vitals Vital Signs Date Time Temp Pulse Resp B/P Pulse Ox O2 Delivery O2 Flow Rate FiO2 10/26/16 09:00 98.0 75 18 128/70 98 Nasal Cannula 2.0 Intake and Output 10/25/16 10/25/16 10/26/16 15:00 23:00 07:00 Intake Total 1110.5 ml 2657.6 ml Output Total 160 ml 180 ml 400 ml Balance -160 ml 930.5 ml 2257.6 ml Exam Constitutional: alert, oriented Psych: no complaints Head: normocephalic Eyes: nl conjunctiva ENMT: nl external ears & nose Neck: non-tender, supple Respiratory: clear to auscultation, normal air movement Cardiovascular: nl pulses, regular rate and rhythm Gastrointestinal: other (Status post surgery, surgical incision is intact with ag and left lower quadrant BJ.), soft Musculoskeletal: nl extremities to inspection Extremities: normal pulses Neurological: PURCHASING BUYER II-XII intact Results Result Diagram: 10/26/16 0432 10/26/16 0432 Results 24 hrs Laboratory Tests Test 10/26/16 04:32 10/26/16 09:25 White Blood Count 12.0 H Red Blood Count 3.46 L Hemoglobin 9.7 L Hematocrit 30.7 L Mean Corpuscular Volume 88.7 Mean Corpuscular Hemoglobin 28.0 L Mean Corpuscular Hemoglobin Concent 31.6 L Red Cell Distribution Width 12.8 Platelet Count 485 H Mean Platelet Volume 9.2 Neutrophils % 89.5 H Lymphocytes % 4.8 L Monocytes % 5.0 Eosinophils % 0.0 Basophils % 0.1 Nucleated Red Blood Cells % 0.0 Neutrophils # 10.7 H Lymphocytes # 0.6 L Monocytes # 0.6 Eosinophils # 0.0 Basophils # 0.0 Nucleated Red Blood Cells # 0.0 Erythrocyte Sedimentation Rate 45 H Sodium Level 138 Potassium Level 3.9 Chloride Level 105 Carbon Dioxide Level 25 Anion Gap 12 Blood Urea Nitrogen 11 Creatinine 0.66 Glucose Level 131 Calcium Level 7.8 L Total Bilirubin 0.1 L Direct Bilirubin 0.00 Indirect Bilirubin 0.1 Aspartate Amino Transf (AST/SGOT) 23 Alanine Aminotransferase (ALT/SGPT) 36 Alkaline Phosphatase 60 C-Reactive Protein 4.6 H Total Protein 5.0 #L Albumin 2.3 L Globulin 2.70 Albumin/Globulin Ratio 0.85 Urine Color LT. YELLOW Urine Clarity CLEAR Urine pH 5.5 Urine Specific [place] 1.025 Urine Ketones 3+ H Urine Nitrite NEGATIVE Urine Bilirubin NEGATIVE Urine Urobilinogen 0.2 E.U./dL Urine Leukocyte Esterase 1+ H Urine Microscopic RBC 0-2 Urine Microscopic WBC 5-10 Urine Epithelial Cells OCCASIONAL Urine Hemoglobin TRACE Urine Glucose NEGATIVE Urine Total Protein NEGATIVE Medications Medications Current Medications Potassium Cl/ Dextrose/Lact Ringer's (D5-Lr + KCl 20 Meq) 1,000 ml @ 60 mls/hr [id number] IV Last administered on 10/25/16 18:26; Admin Dose 60 MLS/HR; Start at 17:00 Dimethicone (Blistex Lip [place]) 1 applic Q2H PRN TOP CHAPPED LIPS; Start at 09:30 Diphenhydramine HCl (Benadryl) 25 mg Q6H PRN IV ITCHING Last administered on 14:19; Admin Dose 25 MG; Start 10/11/16 at 16:19 Hydralazine HCl 10 mg 10 mg Q4H PRN IV ELEVATED BLOOD PRESSURE; Start 10/15/16 at 10:00 Acetaminophen (Ofirmev 1000mg/ 100ml Iv) 100 ml @ 400 mls/hr Q6H PRN IVPB HEADACHE Last administered on 10/24/16 07:38; Admin Dose 400 MLS/HR; Start at 10:00 IV Flush (NS 10 ml) 10 ml PRN PRN IV FLUSH LINE Last administered on 10/22/16 20:40; Admin Dose 10 ML; Start 10/16/16 at 11:00 Tramadol HCl (Ultram) 50 mg Q6H PRN PO PAIN LEVEL 6-10 Last administered on 07:47; Admin Dose 50 MG; Start 10/19/16 at 23:00 Hydromorphone HCl (Dilaudid) 0.5 mg Q8 PRN IV PAIN Last administered on 15:01; Admin Dose 0.5 MG; Start 10/23/16 at 06:00 Pantoprazole 40 mg 40 mg DAILY@06 PO Last administered on 10/26/16 05:11; Admin Dose 40 MG; Start 10/25/16 at 06:00 Ondansetron HCl/ Dextrose (Zofran Inj/D5W) 54 ml @ 108 mls/hr Q8H PRN IV NAUSEA AND/OR VOMITING; Start 10/24/16 at 17:30 Prochlorperazine 10 mg 10 mg Q8H PRN IV NAUSEA AND/OR VOMITING; Start 10/24/16 at 17:30 Sodium Chloride 1,000 ml @ 150 mls/hr Q6H40M PRN IV INFUSE DURING IFOSFAMIDE Last administered on 10/26/16 04:14; Admin Dose 150 MLS/HR; Start 10/25/16 at 20:00 Ondansetron HCl/ Dexamethasone/ Dextrose (Zofran Inj/ Decadron/D5W) 60.5 ml @ 252 mls/hr Q24H IV Last administered on 10/25/16 21:41; Admin Dose 252 MLS/HR ; Start 10/25/16 at 21:00; Stop 10/27/16 at 21:15 Famotidine (Pepcid Iv) 20 mg Q24H IV Last administered on 10/25/16 21:41; Admin Dose 20 MG; Start 10/25/16 at 21:00; Stop 10/27/16 at 21:01 Hydrocortisone (Solu-Cortef) 100 mg PRN PRN IV ALLERGIC REACTION; Start at 22:00 Diphenhydramine HCl (Benadryl) 50 mg PRN PRN IV ALLERGIC REACTION; Start at 22:00 Filgrastim 480 mcg 480 mcg DAILY@17 SC ; Start 10/28/16 at 17:00 Ifosfamide 2.88 gm/Sodium Chloride 307.6 ml @ 125 mls/hr Q24H IV Last administered on 10/25/16 22:34; Admin Dose 125 MLS/HR; Start 10/25/16 at 22:00 ; Stop 10/28/16 at 00:28 [place] 2000 mg/ Sodium Chloride 500 ml @ 41.667 mls/ hr Q24H IV Last administered on 10/25/16 22:13; Admin Dose 41.667 MLS/HR; Start 10/25/16 at 21: 45; Stop 10/28/16 at 09:44 Ceftriaxone Sodium (Rocephin) 50 ml @ 100 mls/hr Q24H IVPB Last administered on 10/25/16 17:05; Admin Dose 100 MLS/HR; Start 10/25/16 at 17:00 ELVIN TEIXEIRA Oct 26, 2016 16:30
[2016-10-26] MEDS: CEFTRIAXONE 1 GM/50 ML (PMX) 50 ML IVPB SCH (17:13)
[2016-10-26] MEDS: FAMOTIDINE 20 MG INJ IV SCH (21:16)
[2016-10-26] MEDS: ONDANSETRON INJ 16 MG, DEXAMETHASONE 4 MG/ML 10 MG in DEXTROSE 5% 50 ML IV SCH (21:16)
[2016-10-26] MEDS: MESNA IV SCH (21:48)
[2016-10-26] MEDS: IFOSFAMIDE IV SCH (22:37)
[2016-10-27] VITALS (12 sets, daily range): BP systolic 119–141; BP diastolic 62–84; PULSE 74–115; RESP 18–20
[2016-10-27] MEDS: D5-LR + KCL 20 MEQ 1,000 ML IV SCH ×2 (02:56→20:03)
[2016-10-27] MEDS: HYDROmorphONE 1 MG/ML SYG IV PRN (03:04)
[2016-10-27] MEDS: PANTOPRAZOLE (EC) 40 MG TAB PO SCH (06:06)
[2016-10-27 06:11] LABS: ADD SCAN DIFF NO
[2016-10-27 06:32] LABS: ABNORMAL IP MESSAGE 1; BASOPHILS % 0.1 % (0.0-2.0); HEMOGLOBIN 9.9 g/dl (12.0-16.0); LYMPHOCYTES # 0.5 10^3/ul (0.8-2.9); LYMPHOCYTES % 3.7 % (15.0-51.0); MEAN CORPUSCULAR HEMOGLOBIN 28.3 pg (29.0-33.0); MEAN CORPUSCULAR HGB CONC 31.9 g/dl (32.0-37.0); MEAN CORPUSCULAR VOLUME 88.6 fl (82.0-101.0); MEAN PLATELET VOLUME 9.8 fl (7.4-10.4); MONOCYTE # 0.3 10^3/ul (0.3-0.9); MONOCYTES % 1.9 % (0.0-11.0); NEUTROPHIL # 13.4 10^3/ul (1.6-7.5); NEUTROPHILS % 93.9 % (39.0-77.0); PLATELET COUNT 464 10^3/UL (140-415); RED CELL DISTRIBUTION WIDTH 13.2 % (11.5-14.5); WHITE BLOOD COUNT 14.2 10^3/ul (4.8-10.8)
[2016-10-27 07:01] LABS: ALBUMIN 2.1 g/dl (3.3-4.9)
[2016-10-27 07:02] LABS: POTASSIUM 3.7 mmol/L (3.5-5.1)
[2016-10-27 07:04] LABS: ALBUMIN/GLOBULIN RATIO 0.8; BILIRUBIN,INDIRECT 0.2 mg/dl (0-1.1); BILIRUBIN,TOTAL 0.2 mg/dl (0.2-1.3); CREATININE 0.75 mg/dl (0.44-1.00); TOTAL PROTEIN 4.7 g/dl (6.1-8.1)
[2016-10-27 07:05] LABS: CALCIUM 7.5 mg/dl (8.4-10.2)
[2016-10-27 08:37] LABS: ADD UMIC YES; URINE BILIRUBIN (Dip) NEGATIVE (NEGATIVE); URINE BLOOD (Dip) 1+ (NEGATIVE); URINE COLOR LT. YELLOW (YELLOW); URINE GLUCOSE (Dip) NEGATIVE (NEGATIVE); URINE KETONES (Dip) 3+ (NEGATIVE); URINE LEUKOCYTE ESTERASE (Dip) NEGATIVE (NEGATIVE); URINE NITRITE (Dip) NEGATIVE (NEGATIVE); URINE TOTAL PROTEIN (Dip) TRACE (NEGATIVE); URINE UROBILINOGEN (Dip) 0.2 E.U./dL (0.1-1.0)
[2016-10-27 08:50] LABS: BACTERIA,URINE FEW
[2016-10-27] MEDS: ACETAMINOPHEN 1000MG/100ML IV 100 ML IVPB PRN (09:48)
--- NOTE | 2016-10-27 11:33 | PN ---
Date/Time of Note Date/Time of Note DATE: 10/27/16 TIME: 11:32 Assessment/Plan VTE Prophylaxis VTE Prophylaxis Intervention: other Lines/Catheters IV [facility] Type [facility] PICC Line Central line still needed: Yes Urinary Cath still in place: No Assessment/Plan Chief Complaint/Hosp Course - Stage IV endometrial cancer, status post surgical procedure with CYNDI/BSO and recto-sigmoid en-bloc with low anastomosis by Dr. Bueno on 10/11. Advance diet per surgery. Patient was millimeter residual disease, started on chemotherapy. Dr. Hoang is following in oncology consultation. - Hypertension. Continue hydralazine as needed for systolic blood pressure above 170. - Dyslipidemia. We will resume statins when patient is able to tolerate p.o. - Gastritis. Continue Protonix. Problems: Subjective 24 Hr Interval Summary Free Text/Dictation Patient resting comfortably Exam/Review of Systems Vital Signs Vitals Vital Signs Date Time Temp Pulse Resp B/P Pulse Ox O2 Delivery O2 Flow Rate FiO2 10/27/16 07:00 97.6 85 20 131/74 97 10/27/16 06:10 Room Air 10/26/16 09:00 2.0 Intake and Output 10/26/16 10/26/16 10/27/16 14:59 22:59 06:59 Intake Total 240.5 ml 1950 ml 1832.6 ml Output Total 1350 ml 1142 ml Balance 240.5 ml 600 ml 690.6 ml Exam Constitutional: well developed Head: atraumatic, normocephalic Neck: supple Respiratory: clear to auscultation Cardiovascular: regular rate and rhythm Gastrointestinal: non-tender, soft Extremities: normal pulses Results Result Diagram: 10/27/16 0505 10/27/16 0505 Results 24 hrs Laboratory Tests Test 10/27/16 05:05 10/27/16 06:05 White Blood Count 14.2 H Red Blood Count 3.50 L Hemoglobin 9.9 L Hematocrit 31.0 L Mean Corpuscular Volume 88.6 Mean Corpuscular Hemoglobin 28.3 L Mean Corpuscular Hemoglobin Concent 31.9 L Red Cell Distribution Width 13.2 Platelet Count 464 H Mean Platelet Volume 9.8 Neutrophils % 93.9 H Lymphocytes % 3.7 L Monocytes % 1.9 Eosinophils % 0.0 Basophils % 0.1 Nucleated Red Blood Cells % 0.0 Neutrophils # 13.4 H Lymphocytes # 0.5 L Monocytes # 0.3 Eosinophils # 0.0 Basophils # 0.0 Nucleated Red Blood Cells # 0.0 Sodium Level 139 Potassium Level 3.7 Chloride Level 107 Carbon Dioxide Level 23 Anion Gap 13 Blood Urea Nitrogen 16 Creatinine 0.75 Glucose Level 99 Calcium Level 7.5 L Total Bilirubin 0.2 Direct Bilirubin 0.00 Indirect Bilirubin 0.2 Aspartate Amino Transf (AST/SGOT) 57 H Alanine Aminotransferase (ALT/SGPT) 48 Alkaline Phosphatase 52 Total Protein 4.7 L Albumin 2.1 L Globulin 2.60 Albumin/Globulin Ratio 0.80 Urine Color LT. YELLOW Urine Clarity CLEAR Urine pH 6.0 Urine Specific [place] 1.020 Urine Ketones 3+ H Urine Nitrite NEGATIVE Urine Bilirubin NEGATIVE Urine Urobilinogen 0.2 E.U./dL Urine Leukocyte Esterase NEGATIVE Urine Microscopic RBC 5-10 Urine Microscopic WBC 10-25 Urine Epithelial Cells FEW Urine Bacteria FEW Urine Yeast FEW Urine Hemoglobin 1+ H Urine Glucose NEGATIVE Urine Total Protein TRACE Medications Medications Current Medications Potassium Cl/ Dextrose/Lact Ringer's (D5-Lr + KCl 20 Meq) 1,000 ml @ 60 mls/hr [id number] IV Last administered on 10/27/16 02:56; Admin Dose 60 MLS/HR; Start at 17:00 Dimethicone (Blistex Lip [place]) 1 applic Q2H PRN TOP CHAPPED LIPS; Start at 09:30 Diphenhydramine HCl (Benadryl) 25 mg Q6H PRN IV ITCHING Last administered on 14:19; Admin Dose 25 MG; Start 10/11/16 at 16:19 Hydralazine HCl 10 mg 10 mg Q4H PRN IV ELEVATED BLOOD PRESSURE; Start 10/15/16 at 10:00 Acetaminophen (Ofirmev 1000mg/ 100ml Iv) 100 ml @ 400 mls/hr Q6H PRN IVPB HEADACHE Last administered on 10/27/16 09:48; Admin Dose 400 MLS/HR; Start at 10:00 IV Flush (NS 10 ml) 10 ml PRN PRN IV FLUSH LINE Last administered on 10/22/16 20:40; Admin Dose 10 ML; Start 10/16/16 at 11:00 Tramadol HCl (Ultram) 50 mg Q6H PRN PO PAIN LEVEL 6-10 Last administered on 07:47; Admin Dose 50 MG; Start 10/19/16 at 23:00 Hydromorphone HCl (Dilaudid) 0.5 mg Q8 PRN IV PAIN Last administered on 03:04; Admin Dose 0.5 MG; Start 10/23/16 at 06:00 Pantoprazole 40 mg 40 mg DAILY@06 PO Last administered on 10/27/16 06:06; Admin Dose 40 MG; Start 10/25/16 at 06:00 Ondansetron HCl/ Dextrose (Zofran Inj/D5W) 54 ml @ 108 mls/hr Q8H PRN IV NAUSEA AND/OR VOMITING; Start 10/24/16 at 17:30 Prochlorperazine 10 mg 10 mg Q8H PRN IV NAUSEA AND/OR VOMITING; Start 10/24/16 at 17:30 Sodium Chloride 1,000 ml @ 150 mls/hr Q6H40M PRN IV INFUSE DURING IFOSFAMIDE Last administered on 10/26/16 22:36; Admin Dose 150 MLS/HR; Start 10/25/16 at 20:00 Ondansetron HCl/ Dexamethasone/ Dextrose (Zofran Inj/ Decadron/D5W) 60.5 ml @ 252 mls/hr Q24H IV Last administered on 10/26/16 21:16; Admin Dose 252 MLS/HR ; Start 10/25/16 at 21:00; Stop 10/27/16 at 21:15 Famotidine (Pepcid Iv) 20 mg Q24H IV Last administered on 10/26/16 21:16; Admin Dose 20 MG; Start 10/25/16 at 21:00; Stop 10/27/16 at 21:01 Hydrocortisone (Solu-Cortef) 100 mg PRN PRN IV ALLERGIC REACTION; Start at 22:00 Diphenhydramine HCl (Benadryl) 50 mg PRN PRN IV ALLERGIC REACTION; Start at 22:00 Filgrastim 480 mcg 480 mcg DAILY@17 SC ; Start 10/28/16 at 17:00 Ifosfamide 2.88 gm/Sodium Chloride 307.6 ml @ 125 mls/hr Q24H IV Last administered on 10/26/16 22:37; Admin Dose 125 MLS/HR; Start 10/25/16 at 22:00 ; Stop 10/28/16 at 00:28 [place] 2000 mg/ Sodium Chloride 500 ml @ 41.667 mls/ hr Q24H IV Last administered on 10/26/16 21:48; Admin Dose 41.667 MLS/HR; Start 10/25/16 at 21: 45; Stop 10/28/16 at 09:44 Ceftriaxone Sodium (Rocephin) 50 ml @ 100 mls/hr Q24H IVPB Last administered on 10/26/16 17:13; Admin Dose 100 MLS/HR; Start 10/25/16 at 17:00 MARCO XAVIER Oct 27, 2016 11:33
[2016-10-27] MEDS: PROCHLORPERAZINE 10 MG INJ IV PRN (13:25)
--- NOTE | 2016-10-27 13:45 | PN ---
Date/Time of Note Date/Time of Note DATE: 10/27/16 TIME: 13:43 Assessment/Plan VTE Prophylaxis VTE Prophylaxis Intervention: ambulation Lines/Catheters [facility] Type [facility] PICC Line Central line still needed: Yes Urinary Cath still in place: No Assessment/Plan Assessment/Plan The patient is a 56-year-old female with recent diagnosis of endometrial cancer on 09/17/2016 by endometrial biopsy. The patient was diagnosed with stage IV endometrial cancer. She underwent CYNDI/BSO and recto-sigmoid en-bloc with low anastomosis per Dr. Bueno on 10/11/16. She had extensive positive retroperitoneal lymph nodes removed as well. - Path report showed metastatic carcinosarcoma. Ifosfamide/taxol regimen is commonly used, however per Dr. Bueno, more recently several phase II articles produced as good or better results with Carbo/Taxol. There is an ongoing Phase III GOG study (GOG 261) that randomizes patients to Carbo/Taxol vs. Ifosfamide/Taxol for advanced stage disease, however the data are not yet mature. Given how advanced and serious, Dr. Bueno, would like to treat with 8 cycles of each regimen. Side effects including N/V, fatigue, myelosuppression , allergic reaction, confusion, hemorrhagic cystitis discussed with the patient. Patient started on Ifosfamide/taxol 10/25/16, tolerating well thus far. labs stable and continue supportive care. - Will obtain daily UA prior to each dose of ifosfamide to monitor for hemorrhagic cystitis. - Will also monitor for encephalopathy with ifosfamide. - Avoid benzodiazepines or ambien while receiving ifosfamide. Patient will need to be re-admitted in 3 weeks for cycle 2 ifosfamide/taxol Subjective 24 Hr Interval Summary Constitutional: no complaints Gastrointestinal: decreased appetite Exam/Review of Systems Vital Signs Vitals Vital Signs Date Time Temp Pulse Resp B/P Pulse Ox O2 Delivery O2 Flow Rate FiO2 10/27/16 07:00 97.6 85 20 131/74 97 10/27/16 06:10 Room Air 10/26/16 09:00 2.0 Intake and Output 10/26/16 10/26/16 10/27/16 15:00 23:00 07:00 Intake Total 240.5 ml 1950 ml 1832.6 ml Output Total 1350 ml 1142 ml Balance 240.5 ml 600 ml 690.6 ml Exam Constitutional: alert, oriented Psych: no complaints Eyes: nl conjunctiva Neck: supple Respiratory: normal air movement Gastrointestinal: soft Results Result Diagram: 10/27/16 0505 10/27/16 0505 Results 24 hrs Laboratory Tests Test 10/27/16 05:05 10/27/16 06:05 White Blood Count 14.2 H Red Blood Count 3.50 L Hemoglobin 9.9 L Hematocrit 31.0 L Mean Corpuscular Volume 88.6 Mean Corpuscular Hemoglobin 28.3 L Mean Corpuscular Hemoglobin Concent 31.9 L Red Cell Distribution Width 13.2 Platelet Count 464 H Mean Platelet Volume 9.8 Neutrophils % 93.9 H Lymphocytes % 3.7 L Monocytes % 1.9 Eosinophils % 0.0 Basophils % 0.1 Nucleated Red Blood Cells % 0.0 Neutrophils # 13.4 H Lymphocytes # 0.5 L Monocytes # 0.3 Eosinophils # 0.0 Basophils # 0.0 Nucleated Red Blood Cells # 0.0 Sodium Level 139 Potassium Level 3.7 Chloride Level 107 Carbon Dioxide Level 23 Anion Gap 13 Blood Urea Nitrogen 16 Creatinine 0.75 Glucose Level 99 Calcium Level 7.5 L Total Bilirubin 0.2 Direct Bilirubin 0.00 Indirect Bilirubin 0.2 Aspartate Amino Transf (AST/SGOT) 57 H Alanine Aminotransferase (ALT/SGPT) 48 Alkaline Phosphatase 52 Total Protein 4.7 L Albumin 2.1 L Globulin 2.60 Albumin/Globulin Ratio 0.80 Urine Color LT. YELLOW Urine Clarity CLEAR Urine pH 6.0 Urine Specific [place] 1.020 Urine Ketones 3+ H Urine Nitrite NEGATIVE Urine Bilirubin NEGATIVE Urine Urobilinogen 0.2 E.U./dL Urine Leukocyte Esterase NEGATIVE Urine Microscopic RBC 5-10 Urine Microscopic WBC 10-25 Urine Epithelial Cells FEW Urine Bacteria FEW Urine Yeast FEW Urine Hemoglobin 1+ H Urine Glucose NEGATIVE Urine Total Protein TRACE Medications Medications Current Medications Potassium Cl/ Dextrose/Lact Ringer's (D5-Lr + KCl 20 Meq) 1,000 ml @ 60 mls/hr [id number] IV Last administered on 10/27/16t 02:56; Admin Dose 60 MLS/HR; Start at 17:00 Dimethicone (Blistex Lip [place]) 1 applic Q2H PRN TOP CHAPPED LIPS; Start at 09:30 Diphenhydramine HCl (Benadryl) 25 mg Q6H PRN IV ITCHING Last administered on 14:19; Admin Dose 25 MG; Start 10/11/16 at 16:19 Hydralazine HCl 10 mg 10 mg Q4H PRN IV ELEVATED BLOOD PRESSURE; Start 10/15/16 at 10:00 Acetaminophen (Ofirmev 1000mg/ 100ml Iv) 100 ml @ 400 mls/hr Q6H PRN IVPB HEADACHE Last administered on 10/27/16 09:48; Admin Dose 400 MLS/HR; Start at 10:00 IV Flush (NS 10 ml) 10 ml PRN PRN IV FLUSH LINE Last administered on 10/22/16 20:40; Admin Dose 10 ML; Start 10/16/16 at 11:00 Tramadol HCl (Ultram) 50 mg Q6H PRN PO PAIN LEVEL 6-10 Last administered on 07:47; Admin Dose 50 MG; Start 10/19/16 at 23:00 Hydromorphone HCl (Dilaudid) 0.5 mg Q8 PRN IV PAIN Last administered on 03:04; Admin Dose 0.5 MG; Start 10/23/16 at 06:00 Pantoprazole 40 mg 40 mg DAILY@06 PO Last administered on 10/27/16 06:06; Admin Dose 40 MG; Start 10/25/16 at 06:00 Ondansetron HCl/ Dextrose (Zofran Inj/D5W) 54 ml @ 108 mls/hr Q8H PRN IV NAUSEA AND/OR VOMITING; Start 10/24/16 at 17:30 Prochlorperazine 10 mg 10 mg Q8H PRN IV NAUSEA AND/OR VOMITING Last administered on 10/27/16 13:25; Admin Dose 10 MG; Start 10/24/16 at 17:30 Sodium Chloride 1,000 ml @ 150 mls/hr Q6H40M PRN IV INFUSE DURING IFOSFAMIDE Last administered on 10/26/16 22:36; Admin Dose 150 MLS/HR; Start 10/25/16 at 20:00 Ondansetron HCl/ Dexamethasone/ Dextrose (Zofran Inj/ Decadron/D5W) 60.5 ml @ 252 mls/hr Q24H IV Last administered on 10/26/16 21:16; Admin Dose 252 MLS/HR ; Start 10/25/16 at 21:00; Stop 10/27/16 at 21:15 Famotidine (Pepcid Iv) 20 mg Q24H IV Last administered on 10/26/16 21:16; Admin Dose 20 MG; Start 10/25/16 at 21:00; Stop 10/27/16 at 21:01 Hydrocortisone (Solu-Cortef) 100 mg PRN PRN IV ALLERGIC REACTION; Start at 22:00 Diphenhydramine HCl (Benadryl) 50 mg PRN PRN IV ALLERGIC REACTION; Start at 22:00 Filgrastim 480 mcg 480 mcg DAILY@17 SC ; Start 10/28/16 at 17:00 Ifosfamide 2.88 gm/Sodium Chloride 307.6 ml @ 125 mls/hr Q24H IV Last administered on 10/26/16 22:37; Admin Dose 125 MLS/HR; Start 10/25/16 at 22:00 ; Stop 10/28/16 at 00:28 [place] 2000 mg/ Sodium Chloride 500 ml @ 41.667 mls/ hr Q24H IV Last administered on 10/26/16 21:48; Admin Dose 41.667 MLS/HR; Start 10/25/16 at 21: 45; Stop 10/28/16 at 09:44 Ceftriaxone Sodium (Rocephin) 50 ml @ 100 mls/hr Q24H IVPB Last administered on 10/26/16 17:13; Admin Dose 100 MLS/HR; Start 10/25/16 at 17:00 VAMSI SAMAYOA MD Oct 27, 2016 13:45
[2016-10-27] MEDS: CEFTRIAXONE 1 GM/50 ML (PMX) 50 ML IVPB SCH (17:34)
[2016-10-27] MEDS: ONDANSETRON INJ 16 MG, DEXAMETHASONE 4 MG/ML 10 MG in DEXTROSE 5% 50 ML IV SCH (21:33)
[2016-10-27] MEDS: FAMOTIDINE 20 MG INJ IV SCH (21:33)
[2016-10-27] MEDS: MESNA IV SCH (22:01)
[2016-10-27] MEDS: SOD CHLORIDE 0.9% IV SCH ×2 (22:01→22:34)
[2016-10-27] MEDS: IFOSFAMIDE IV SCH (22:34)
[2016-10-27] MEDS: SOD CHLORIDE 0.9% 1,000 ML IV PRN (22:36)
[2016-10-28] VITALS (7 sets, daily range): BP systolic 105–132; BP diastolic 60–77; PULSE 94–112; RESP 18
[2016-10-28] MEDS: PROCHLORPERAZINE 10 MG INJ IV PRN (05:32)
[2016-10-28 05:46] LABS: ADD SCAN DIFF NO
[2016-10-28 06:00] LABS: ABNORMAL IP MESSAGE 1; HEMATOCRIT 33.3 % (37.0-47.0); HEMOGLOBIN 10.8 g/dl (12.0-16.0); LYMPHOCYTES # 0.3 10^3/ul (0.8-2.9); LYMPHOCYTES % 2.5 % (15.0-51.0); MEAN CORPUSCULAR HEMOGLOBIN 28.3 pg (29.0-33.0); MEAN CORPUSCULAR HGB CONC 32.4 g/dl (32.0-37.0); MEAN CORPUSCULAR VOLUME 87.4 fl (82.0-101.0); MEAN PLATELET VOLUME 9.8 fl (7.4-10.4); MONOCYTE # 0.1 10^3/ul (0.3-0.9); MONOCYTES % 1.2 % (0.0-11.0); NEUTROPHIL # 11.3 10^3/ul (1.6-7.5); PLATELET COUNT 481 10^3/UL (140-415); RED BLOOD COUNT 3.81 10^6/ul (4.20-5.40); RED CELL DISTRIBUTION WIDTH 13.2 % (11.5-14.5); WHITE BLOOD COUNT 11.8 10^3/ul (4.8-10.8)
[2016-10-28 06:10] LABS: ALBUMIN 2.1 g/dl (3.3-4.9); ALBUMIN/GLOBULIN RATIO 0.87; BILIRUBIN,INDIRECT 0.2 mg/dl (0-1.1); BILIRUBIN,TOTAL 0.2 mg/dl (0.2-1.3); CALCIUM 7.6 mg/dl (8.4-10.2); CREATININE 0.67 mg/dl (0.44-1.00); POTASSIUM 3.9 mmol/L (3.5-5.1); TOTAL PROTEIN 4.5 g/dl (6.1-8.1)
[2016-10-28] MEDS: PANTOPRAZOLE (EC) 40 MG TAB PO SCH (06:22)
[2016-10-28] MEDS: DIPHENHYDRAMINE 50 MG INJ IV PRN (06:34)
[2016-10-28 08:23] LABS: ADD UMIC YES; URINE BILIRUBIN (Dip) NEGATIVE (NEGATIVE); URINE BLOOD (Dip) 1+ (NEGATIVE); URINE COLOR LT. YELLOW (YELLOW); URINE GLUCOSE (Dip) NEGATIVE (NEGATIVE); URINE KETONES (Dip) 40 (NEGATIVE); URINE LEUKOCYTE ESTERASE (Dip) NEGATIVE (NEGATIVE); URINE NITRITE (Dip) NEGATIVE (NEGATIVE); URINE TOTAL PROTEIN (Dip) TRACE (NEGATIVE); URINE UROBILINOGEN (Dip) 0.2 E.U./dL (0.1-1.0)
[2016-10-28 09:06] LABS: BACTERIA,URINE FEW
[2016-10-28] MEDS ORDERED: BISACODYL (EC) 5 MG TAB PO PRN (10:00)
--- NOTE | 2016-10-28 11:40 | PN ---
Date/Time of Note Date/Time of Note DATE: 10/28/16 TIME: 11:40 Assessment/Plan VTE Prophylaxis VTE Prophylaxis Intervention: other Lines/Catheters IV [facility] Type [facility] PICC Line Central line still needed: Yes Urinary Cath still in place: No Assessment/Plan Chief Complaint/Hosp Course - Stage IV endometrial cancer, status post surgical procedure with CYNDI/BSO and recto-sigmoid en-bloc with low anastomosis by Dr. Bueno on 10/11. Advance diet per surgery. Patient was millimeter residual disease, started on chemotherapy. Dr. Hoang is following in oncology consultation. - Hypertension. Continue hydralazine as needed for systolic blood pressure above 170. - Dyslipidemia. We will resume statins when patient is able to tolerate p.o. - Gastritis. Continue Protonix. Problems: Subjective 24 Hr Interval Summary Free Text/Dictation Patient denies abdominal pain, eating well Exam/Review of Systems Vital Signs Vitals Vital Signs Date Time Temp Pulse Resp B/P Pulse Ox O2 Delivery O2 Flow Rate FiO2 10/28/16 08:47 98.0 122 18 132/77 97 10/28/16 05:00 Room Air 10/26/16 09:00 2.0 Intake and Output 10/27/16 10/27/16 10/28/16 14:59 22:59 06:59 Intake Total 300 ml 1510.5 ml 2032.6 ml Output Total 230 ml 970 ml 2160 ml Balance 70 ml 540.5 ml -127.4 ml Exam Constitutional: well developed Head: atraumatic, normocephalic Neck: supple Respiratory: clear to auscultation Cardiovascular: regular rate and rhythm Gastrointestinal: non-tender, soft Extremities: normal pulses Results Result Diagram: 10/28/160 10/28/16439 Results 24 hrs Laboratory Tests Test 10/27/16 14:00 10/28/16 04:40 10/28/16 05:00 Creatinine 0.75 0.67 White Blood Count 11.8 H Red Blood Count 3.81 L Hemoglobin 10.8 L Hematocrit 33.3 L Mean Corpuscular Volume 87.4 Mean Corpuscular Hemoglobin 28.3 L Mean Corpuscular Hemoglobin Concent 32.4 Red Cell Distribution Width 13.2 Platelet Count 481 H Mean Platelet Volume 9.8 Neutrophils % 96.0 H Lymphocytes % 2.5 L Monocytes % 1.2 Eosinophils % 0.0 Basophils % 0.0 Nucleated Red Blood Cells % 0.0 Neutrophils # 11.3 H Lymphocytes # 0.3 L Monocytes # 0.1 L Eosinophils # 0.0 Basophils # 0.0 Nucleated Red Blood Cells # 0.0 Sodium Level 134 L Potassium Level 3.9 Chloride Level 107 Carbon Dioxide Level 25 Anion Gap 6 L Blood Urea Nitrogen 14 Glucose Level 122 Calcium Level 7.6 L Total Bilirubin 0.2 Direct Bilirubin 0.00 Indirect Bilirubin 0.2 Aspartate Amino Transf (AST/SGOT) 44 Alanine Aminotransferase (ALT/SGPT) 49 Alkaline Phosphatase 57 Total Protein 4.5 L Albumin 2.1 L Globulin 2.40 Albumin/Globulin Ratio 0.87 Urine Color LT. YELLOW Urine Clarity CLEAR Urine pH 5.5 Urine Specific [place] 1.015 Urine Ketones 40 Urine Nitrite NEGATIVE Urine Bilirubin NEGATIVE Urine Urobilinogen 0.2 E.U./dL Urine Leukocyte Esterase NEGATIVE Urine Microscopic RBC 10-25 Urine Microscopic WBC 2-5 Urine Epithelial Cells FEW Urine Bacteria FEW Urine Hemoglobin 1+ H Urine Glucose NEGATIVE Urine Total Protein TRACE Medications Medications Current Medications Potassium Cl/ Dextrose/Lact Ringer's (D5-Lr + KCl 20 Meq) 1,000 ml @ 60 mls/hr [id number] IV Last administered on 10/27/16 20:03; Admin Dose 60 MLS/HR; Start at 17:00 Dimethicone (Blistex Lip [place]) 1 applic Q2H PRN TOP CHAPPED LIPS; Start at 09:30 Diphenhydramine HCl (Benadryl) 25 mg Q6H PRN IV ITCHING Last administered on 06:34; Admin Dose 25 MG; Start 10/11/16 at 16:19 Hydralazine HCl 10 mg 10 mg Q4H PRN IV ELEVATED BLOOD PRESSURE; Start 10/15/16 at 10:00 Acetaminophen (Ofirmev 1000mg/ 100ml Iv) 100 ml @ 400 mls/hr Q6H PRN IVPB HEADACHE Last administered on 10/27/16 09:48; Admin Dose 400 MLS/HR; Start at 10:00 IV Flush (NS 10 ml) 10 ml PRN PRN IV FLUSH LINE Last administered on 10/22/16 20:40; Admin Dose 10 ML; Start 10/16/16 at 11:00 Tramadol HCl (Ultram) 50 mg Q6H PRN PO PAIN LEVEL 6-10 Last administered on 07:47; Admin Dose 50 MG; Start 10/19/16 at 23:00 Hydromorphone HCl (Dilaudid) 0.5 mg Q8 PRN IV PAIN Last administered on 03:04; Admin Dose 0.5 MG; Start 10/23/16 at 06:00 Pantoprazole 40 mg 40 mg DAILY@06 PO Last administered on 10/28/16 06:22; Admin Dose 40 MG; Start 10/25/16 at 06:00 Ondansetron HCl/ Dextrose (Zofran Inj/D5W) 54 ml @ 108 mls/hr Q8H PRN IV NAUSEA AND/OR VOMITING; Start 10/24/16 at 17:30 Prochlorperazine 10 mg 10 mg Q8H PRN IV NAUSEA AND/OR VOMITING Last administered on 10/28/16 05:32; Admin Dose 10 MG; Start 10/24/16 at 17:30 Sodium Chloride (NS) 1,000 ml @ 150 mls/hr Q6H40M PRN IV INFUSE DURING IFOSFAMIDE Last administered on 10/27/16 22:36; Admin Dose 150 MLS/HR; Start at 20:00 Hydrocortisone (Solu-Cortef) 100 mg PRN PRN IV ALLERGIC REACTION; Start at 22:00 Diphenhydramine HCl (Benadryl) 50 mg PRN PRN IV ALLERGIC REACTION; Start at 22:00 Filgrastim 480 mcg 480 mcg DAILY@17 SC ; Start 10/28/16 at 17:00 Ceftriaxone Sodium (Rocephin) 50 ml @ 100 mls/hr Q24H IVPB Last administered on 10/27/16 17:34; Admin Dose 100 MLS/HR; Start 10/25/16 at 17:00 Bisacodyl (Dulcolax) 5 mg DAILY PRN PO CONSTIPATION Last administered on 10:31; Admin Dose 5 MG; Start 10/28/16 at 10:00 MARCO XAVIER Oct 28, 2016 11:40
--- NOTE | 2016-10-28 12:36 | PN ---
Date/Time of Note Date/Time of Note DATE: 10/28/16 TIME: 12:33 Assessment/Plan VTE Prophylaxis VTE Prophylaxis Intervention: ambulation Lines/Catheters IV Catheter Type (from [facility]): PICC Line Central line still needed: Yes Urinary Cath still in place: No Assessment/Plan Assessment/Plan The patient is a 56-year-old female with recent diagnosis of endometrial cancer on 09/17/2016 by endometrial biopsy. The patient was diagnosed with stage IV endometrial cancer. She underwent CYNDI/BSO and recto-sigmoid en-bloc with low anastomosis per Dr. Bueno on 10/11/16. She had extensive positive retroperitoneal lymph nodes removed as well. - Path report showed metastatic carcinosarcoma. Ifosfamide/taxol with carbo taxol chemorx recommended: Dr. Bueno, would like to treat with 8 cycles of each regimen. Side effects including N/V, fatigue, myelosuppression, allergic reaction, confusion, hemorrhagic cystitis discussed with the patient. Patient started on Ifosfamide/taxol 10/25/16, tolerated fairly well thus far. labs stable and continue supportive care. - no signs of encephalopathy with ifosfamide. continue antiemetic support - Avoid benzodiazepines or ambien while receiving ifosfamide. Subjective 24 Hr Interval Summary Free Text/Dictation nausea and vomiting with decreased appetite ENT: no complaints Respiratory: no complaints Cardiovascular: no complaints Exam/Review of Systems Vital Signs Vitals Vital Signs Date Time Temp Pulse Resp B/P Pulse Ox O2 Delivery O2 Flow Rate FiO2 10/28/16 08:47 98.0 122 18 132/77 97 10/28/16 05:00 Room Air 10/26/16 09:00 2.0 Intake and Output 10/27/16 10/27/16 10/28/16 15:00 23:00 07:00 Intake Total 300 ml 1510.5 ml 2032.6 ml Output Total 230 ml 970 ml 2160 ml Balance 70 ml 540.5 ml -127.4 ml Exam Constitutional: alert, oriented Psych: nl mood/affect Eyes: nl conjunctiva Neck: supple Respiratory: normal air movement Gastrointestinal: soft Results Result Diagram: 10/28/16 0440 10/28/16 0440 Results 24 hrs Laboratory Tests Test 10/27/16 14:00 10/28/16 04:40 10/28/16 05:00 Creatinine 0.75 0.67 White Blood Count 11.8 H Red Blood Count 3.81 L Hemoglobin 10.8 L Hematocrit 33.3 L Mean Corpuscular Volume 87.4 Mean Corpuscular Hemoglobin 28.3 L Mean Corpuscular Hemoglobin Concent 32.4 Red Cell Distribution Width 13.2 Platelet Count 481 H Mean Platelet Volume 9.8 Neutrophils % 96.0 H Lymphocytes % 2.5 L Monocytes % 1.2 Eosinophils % 0.0 Basophils % 0.0 Nucleated Red Blood Cells % 0.0 Neutrophils # 11.3 H Lymphocytes # 0.3 L Monocytes # 0.1 L Eosinophils # 0.0 Basophils # 0.0 Nucleated Red Blood Cells # 0.0 Sodium Level 134 L Potassium Level 3.9 Chloride Level 107 Carbon Dioxide Level 25 Anion Gap 6 L Blood Urea Nitrogen 14 Glucose Level 122 Calcium Level 7.6 L Total Bilirubin 0.2 Direct Bilirubin 0.00 Indirect Bilirubin 0.2 Aspartate Amino Transf (AST/SGOT) 44 Alanine Aminotransferase (ALT/SGPT) 49 Alkaline Phosphatase 57 Total Protein 4.5 L Albumin 2.1 L Globulin 2.40 Albumin/Globulin Ratio 0.87 Urine Color LT. YELLOW Urine Clarity CLEAR Urine pH 5.5 Urine Specific [place] 1.015 Urine Ketones 40 Urine Nitrite NEGATIVE Urine Bilirubin NEGATIVE Urine Urobilinogen 0.2 E.U./dL Urine Leukocyte Esterase NEGATIVE Urine Microscopic RBC 10-25 Urine Microscopic WBC 2-5 Urine Epithelial Cells FEW Urine Bacteria FEW Urine Hemoglobin 1+ H Urine Glucose NEGATIVE Urine Total Protein TRACE Medications Medications Current Medications Potassium Cl/ Dextrose/Lact Ringer's (D5-Lr + KCl 20 Meq) 1,000 ml @ 60 mls/hr [id number] IV Last administered on 10/27/16 20:03; Admin Dose 60 MLS/HR; Start at 17:00 Dimethicone (Blistex Lip [place]) 1 applic Q2H PRN TOP CHAPPED LIPS; Start at 09:30 Diphenhydramine HCl (Benadryl) 25 mg Q6H PRN IV ITCHING Last administered on 06:34; Admin Dose 25 MG; Start 10/11/16 at 16:19 Hydralazine HCl 10 mg 10 mg Q4H PRN IV ELEVATED BLOOD PRESSURE; Start 10/15/16 at 10:00 Acetaminophen (Ofirmev 1000mg/ 100ml Iv) 100 ml @ 400 mls/hr Q6H PRN IVPB HEADACHE Last administered on 10/27/16 09:48; Admin Dose 400 MLS/HR; Start at 10:00 IV Flush (NS 10 ml) 10 ml PRN PRN IV FLUSH LINE Last administered on 10/22/16 20:40; Admin Dose 10 ML; Start 10/16/16 at 11:00 Tramadol HCl (Ultram) 50 mg Q6H PRN PO PAIN LEVEL 6-10 Last administered on 07:47; Admin Dose 50 MG; Start 10/19/16 at 23:00 Hydromorphone HCl (Dilaudid) 0.5 mg Q8 PRN IV PAIN Last administered on 03:04; Admin Dose 0.5 MG; Start 10/23/16 at 06:00 Pantoprazole 40 mg 40 mg DAILY@06 PO Last administered on 10/28/16 06:22; Admin Dose 40 MG; Start 10/25/16 at 06:00 Ondansetron HCl/ Dextrose (Zofran Inj/D5W) 54 ml @ 108 mls/hr Q8H PRN IV NAUSEA AND/OR VOMITING; Start 10/24/16 at 17:30 Prochlorperazine 10 mg 10 mg Q8H PRN IV NAUSEA AND/OR VOMITING Last administered on 10/28/16 05:32; Admin Dose 10 MG; Start 10/24/16 at 17:30 Sodium Chloride (NS) 1,000 ml @ 150 mls/hr Q6H40M PRN IV INFUSE DURING IFOSFAMIDE Last administered on 10/27/16 22:36; Admin Dose 150 MLS/HR; Start at 20:00 Hydrocortisone (Solu-Cortef) 100 mg PRN PRN IV ALLERGIC REACTION; Start at 22:00 Diphenhydramine HCl (Benadryl) 50 mg PRN PRN IV ALLERGIC REACTION; Start at 22:00 Filgrastim 480 mcg 480 mcg DAILY@17 SC ; Start 10/28/16 at 17:00 Ceftriaxone Sodium (Rocephin) 50 ml @ 100 mls/hr Q24H IVPB Last administered on 10/27/16 17:34; Admin Dose 100 MLS/HR; Start 10/25/16 at 17:00 Bisacodyl (Dulcolax) 5 mg DAILY PRN PO CONSTIPATION Last administered on 10:31; Admin Dose 5 MG; Start 10/28/16 at 10:00 VAMSI SAMAYOA MD Oct 28, 2016 12:36
[2016-10-28] MEDS: traMADol 50 MG TAB PO PRN (13:38)
[2016-10-28] MEDS: CEFTRIAXONE 1 GM/50 ML (PMX) 50 ML IVPB SCH (16:31)
[2016-10-28] MEDS ORDERED: FILGRASTIM 480 MCG INJ SC SCH (17:00)
[2016-10-28] MEDS: D5-LR + KCL 20 MEQ 1,000 ML IV SCH (19:38)
[2016-10-29] VITALS (14 sets, daily range): BP systolic 102–115; BP diastolic 54–74; PULSE 123–152; RESP 16–20
[2016-10-29] MEDS: D5-LR + KCL 20 MEQ 1,000 ML IV SCH ×2 (00:40→13:21)
[2016-10-29] MEDS: traMADol 50 MG TAB PO PRN ×2 (01:53→01:56)
[2016-10-29] MEDS: PANTOPRAZOLE (EC) 40 MG TAB PO SCH (05:41)
[2016-10-29 06:07] LABS: ADD SCAN DIFF NO
[2016-10-29 06:17] LABS: ABNORMAL IP MESSAGE 1; HEMOGLOBIN 11.5 g/dl (12.0-16.0); MEAN CORPUSCULAR HEMOGLOBIN 28.6 pg (29.0-33.0); MEAN CORPUSCULAR HGB CONC 32.9 g/dl (32.0-37.0); MEAN CORPUSCULAR VOLUME 87.1 fl (82.0-101.0); MEAN PLATELET VOLUME 9.5 fl (7.4-10.4); PLATELET COUNT 405 10^3/UL (140-415); RED BLOOD COUNT 4.02 10^6/ul (4.20-5.40); RED CELL DISTRIBUTION WIDTH 13.4 % (11.5-14.5); WHITE BLOOD COUNT 51.9 10^3/ul (4.8-10.8)
[2016-10-29 06:40] LABS: ALBUMIN 2.2 g/dl (3.3-4.9); ALBUMIN/GLOBULIN RATIO 0.88; BILIRUBIN,INDIRECT 0.4 mg/dl (0-1.1); BILIRUBIN,TOTAL 0.4 mg/dl (0.2-1.3); CALCIUM 7.8 mg/dl (8.4-10.2); CREATININE 0.81 mg/dl (0.44-1.00); POTASSIUM 3.9 mmol/L (3.5-5.1); TOTAL PROTEIN 4.7 g/dl (6.1-8.1)
[2016-10-29 09:55] LABS: NEUTROPHIL # 47.2 10^3/ul (1.6-7.5)
[2016-10-29] MEDS: ONDANSETRON 4 MG INJ IV PRN ×2 (10:50→22:40)
--- NOTE | 2016-10-29 12:45 | CONS ---
Date/Time of Note Date/Time of Note DATE: 10/29/16 TIME: 12:40 Assessment/Plan Assessment/Plan Chief Complaint/Hosp Course The patient is a 56-year-old female with recent diagnosis of endometrial cancer on 09/17/2016 by endometrial biopsy. The patient was diagnosed with stage IV endometrial cancer. She underwent CYNDI/BSO and recto-sigmoid en-bloc with low anastomosis per Dr. Bueno on 10/11/16. She had extensive positive retroperitoneal lymph nodes removed as well. - Path report showed metastatic carcinosarcoma. Ifosfamide/taxol with carbo taxol chemorx recommended: Dr. Bueno, would like to treat with 8 cycles of each regimen. Side effects including N/V, fatigue, myelosuppression, allergic reaction, confusion, hemorrhagic cystitis discussed with the patient. -Patient is now cycle 1 day 4 of ifosfamide/taxol 10/25/16, tolerated fairly well thus far. labs stable and continue supportive care. -Pt remains tachycardic. This may be secondary to the taxol. no signs of chest pain Recs - continue to montior for GLOVE [employer] symptoms. currently there are no signs of encephalopathy with ifosfamide. - continue antiemetic support. Zofran 8mg IV q 6 started. will consider given [place] with next cycle - Avoid benzodiazepines or ambien while receiving ifosfamide. -continue to monitor counts -cont to monitor HR. may be secondary to the taxol. consider cardiology consult. continue IV hydration in case dehydration is contributing to this Problems: Consultation Date/Type/Reason Admit Date/Time Oct 10, 2016 at 09:46 Initial Consult Date 10/12/16 Type of Consultation: Oncology Reason for Consultation metastatic uterine sarcoma Referring Provider: ARLENE CHOWDARY MD 24 HR Interval Summary Free Text/Dictation pt completed her chemotherapy yesterday but was transferred to the 5th floor for tachycardia to 160's. currently c/o nausea Exam/Review of Systems Vital Signs Vitals Vital Signs Date Time Temp Pulse Resp B/P Pulse Ox O2 Delivery O2 Flow Rate FiO2 10/29/16 12:06 149 10/29/16 11:51 98.1 18 112/54 99 10/29/16 00:38 Room Air 10/29/16 00:38 2.0 Intake and Output 410/28/16 10/29/16 15:00 23:00 07:00 Intake Total 2130 ml 60 ml Output Total 1500 ml 1740 ml Balance 630 ml -1680 ml Exam Constitutional: alert, oriented Psych: no complaints Head: normocephalic Eyes: nl conjunctiva ENMT: nl external ears & nose, nl lips & teeth Neck: non-tender, supple Respiratory: clear to auscultation, normal air movement Cardiovascular: nl pulses, regular rate and rhythm Gastrointestinal: soft, surgical scars Musculoskeletal: nl extremities to inspection, nl gait and stance Results Result Diagram: 10/29/1655 10/29/1655 Results 24 hrs Laboratory Tests Test 10/29/16 05:55 White Blood Count 51.9 #H Red Blood Count 4.02 L Hemoglobin 11.5 L Hematocrit 35.0 L Mean Corpuscular Volume 87.1 Mean Corpuscular Hemoglobin 28.6 L Mean Corpuscular Hemoglobin Concent 32.9 Red Cell Distribution Width 13.4 Platelet Count 405 Mean Platelet Volume 9.5 Band Neutrophils % 7.0 H Lymphocytes % 2.0 L Neutrophils # 47.2 H Lymphocytes # 1.0 Differential Comment MANUAL DIFF Sodium Level 132 L Potassium Level 3.9 Chloride Level 105 Carbon Dioxide Level 26 Anion Gap 5 L Blood Urea Nitrogen 20 Creatinine 0.81 Glucose Level 146 Calcium Level 7.8 L Total Bilirubin 0.4 Direct Bilirubin 0.00 Indirect Bilirubin 0.4 Aspartate Amino Transf (AST/SGOT) 55 H Alanine Aminotransferase (ALT/SGPT) 40 Alkaline Phosphatase 74 Total Protein 4.7 L Albumin 2.2 L Globulin 2.50 Albumin/Globulin Ratio 0.88 Medications Medications Current Medications Potassium Cl/ Dextrose/Lact Ringer's (D5-Lr + KCl 20 Meq) 1,000 ml @ 60 mls/hr [id number] IV Last administered on 10/29/16 00:40; Admin Dose 60 MLS/HR; Start 06/16 at 17:00 Dimethicone (Blistex Lip [place]) 1 applic Q2H PRN TOP CHAPPED LIPS; Start at 09:30 Diphenhydramine HCl (Benadryl) 25 mg Q6H PRN IV ITCHING Last administered on 06:34; Admin Dose 25 MG; Start 10/11/16 at 16:19 Hydralazine HCl 10 mg 10 mg Q4H PRN IV ELEVATED BLOOD PRESSURE; Start 10/15/16 at 10:00 Acetaminophen (Ofirmev 1000mg/ 100ml Iv) 100 ml @ 400 mls/hr Q6H PRN IVPB HEADACHE Last administered on 10/27/16 09:48; Admin Dose 400 MLS/HR; Start at 10:00 IV Flush (NS 10 ml) 10 ml PRN PRN IV FLUSH LINE Last administered on 10/22/16 20:40; Admin Dose 10 ML; Start 10/16/16 at 11:00 Tramadol HCl (Ultram) 50 mg Q6H PRN PO PAIN LEVEL 6-10 Last administered on 10/29 01:56; Admin Dose 50 MG; Start 10/19/16 at 23:00 Hydromorphone HCl (Dilaudid) 0.5 mg Q8 PRN IV PAIN Last administered on 03:04; Admin Dose 0.5 MG; Start 10/23/16 at 06:00 Pantoprazole 40 mg 40 mg DAILY@06 PO Last administered on 10/29/16 05:41; Admin Dose 40 MG; Start 10/25/16 at 06:00 Ondansetron HCl/ Dextrose (Zofran Inj/D5W) 54 ml @ 108 mls/hr Q8H PRN IV NAUSEA AND/OR VOMITING; Start 10/24/16 at 17:30 Prochlorperazine 10 mg 10 mg Q8H PRN IV NAUSEA AND/OR VOMITING Last administered on 10/28/16 05:32; Admin Dose 10 MG; Start 10/24/16 at 17:30 Sodium Chloride (NS) 1,000 ml @ 150 mls/hr Q6H40M PRN IV INFUSE DURING IFOSFAMIDE Last administered on 10/27/16 22:36; Admin Dose 150 MLS/HR; Start at 20:00 Hydrocortisone (Solu-Cortef) 100 mg PRN PRN IV ALLERGIC REACTION; Start at 22:00 Diphenhydramine HCl (Benadryl) 50 mg PRN PRN IV ALLERGIC REACTION; Start at 22:00 Filgrastim 480 mcg 480 mcg DAILY@17 SC Last administered on 10/28/16 16:33; Admin Dose 480 MCG; Start 10/28/16 at 17:00 Ceftriaxone Sodium (Rocephin) 50 ml @ 100 mls/hr Q24H IVPB Last administered on 10/28/16 16:31; Admin Dose 100 MLS/HR; Start 10/25/16 at 17:00 Bisacodyl (Dulcolax) 5 mg DAILY PRN PO CONSTIPATION Last administered on 10:31; Admin Dose 5 MG; Start 10/28/16 at 10:00 Ondansetron HCl (Zofran Inj) 4 mg Q6H PRN IV NAUSEA AND/OR VOMITING Last administered on 10/29/16 10:50; Admin Dose 4 MG; Start 10/29/16 at 09:00 RUSS HINES M.D. October 29, 2016 12:45
[2016-10-29] MEDS: PROCHLORPERAZINE 10 MG INJ IV PRN (15:38)
[2016-10-29] MEDS: CEFTRIAXONE 1 GM/50 ML (PMX) 50 ML IVPB SCH (16:27)
[2016-10-29] MEDS ORDERED: METOPROLOL 5 MG INJ IV PRN (18:00)
--- NOTE | 2016-10-29 18:40 | PN ---
Date/Time of Note Date/Time of Note DATE: 10/29/16 TIME: 18:36 Assessment/Plan VTE Prophylaxis VTE Prophylaxis Intervention: SCD's Lines/Catheters IV Catheter Type (from [facility] PICC Line Central line still needed: Yes Urinary Cath still in place: No Assessment/Plan Chief Complaint/Hosp Course Assessment and plan: - Stage IV endometrial cancer, status post surgical procedure with CYNDI/BSO and recto-sigmoid en-bloc with low anastomosis by Dr. Bueno on 10/11. Advance diet per surgery. Patient was millimeter residual disease, started on chemotherapy. Dr. Hoang is following in oncology consultation. -Tachycardia, Dr. Oglesby is asked to see patient in cardiology consultation. - Hypertension. Continue hydralazine as needed for systolic blood pressure above 170. - Dyslipidemia. We will resume statins when patient is able to tolerate p.o. - Gastritis. Continue Protonix. Further recommendations based on clinical course. Plan of care discussed with Dr. Richardson. Problems: Subjective 24 Hr Interval Summary Free Text/Dictation Patient is tachycardic, complains of nausea, denies vomiting. Exam/Review of Systems Vital Signs Vitals Vital Signs Date Time Temp Pulse Resp B/P Pulse Ox O2 Delivery O2 Flow Rate FiO2 10/29/16 17:07 133 10/29/16 15:32 97.6 16 115/71 99 10/29/16 00:38 Room Air 10/29/16 00:38 2.0 Intake and Output 10/28/16 10/28/16 10/29/16 15:00 23:00 07:00 Intake Total 2130 ml 60 ml Output Total 1500 ml 1740 ml Balance 630 ml -1680 ml Exam Constitutional: alert, oriented Psych: no complaints Head: normocephalic Eyes: nl conjunctiva ENMT: nl external ears & nose Neck: non-tender, supple Respiratory: clear to auscultation, normal air movement Cardiovascular: nl pulses, regular rate and rhythm Gastrointestinal: other (Status post surgery, surgical incision is intact with ag and left lower quadrant BJ.), soft Musculoskeletal: nl extremities to inspection Extremities: normal pulses Neurological: CARDIOLOGY NURSE II-XII intact Results Result Diagram: 10/29/16 0555 10/29/16 0555 Results 24 hrs Laboratory Tests Test 10/29/16 05:55 White Blood Count 51.9 #H Red Blood Count 4.02 L Hemoglobin 11.5 L Hematocrit 35.0 L Mean Corpuscular Volume 87.1 Mean Corpuscular Hemoglobin 28.6 L Mean Corpuscular Hemoglobin Concent 32.9 Red Cell Distribution Width 13.4 Platelet Count 405 Mean Platelet Volume 9.5 Band Neutrophils % 7.0 H Lymphocytes % 2.0 L Neutrophils # 47.2 H Lymphocytes # 1.0 Differential Comment MANUAL DIFF Sodium Level 132 L Potassium Level 3.9 Chloride Level 105 Carbon Dioxide Level 26 Anion Gap 5 L Blood Urea Nitrogen 20 Creatinine 0.81 Glucose Level 146 Calcium Level 7.8 L Total Bilirubin 0.4 Direct Bilirubin 0.00 Indirect Bilirubin 0.4 Aspartate Amino Transf (AST/SGOT) 55 H Alanine Aminotransferase (ALT/SGPT) 40 Alkaline Phosphatase 74 Total Protein 4.7 L Albumin 2.2 L Globulin 2.50 Albumin/Globulin Ratio 0.88 Medications Medications Current Medications Potassium Cl/ Dextrose/Lact Ringer's (D5-Lr + KCl 20 Meq) 1,000 ml @ 60 mls/hr [id number] IV Last administered on 10/29/16 13:21; Admin Dose 60 MLS/HR; Start 06/16 at 17:00 Dimethicone (Blistex Lip [place]) 1 applic Q2H PRN TOP CHAPPED LIPS; Start at 09:30 Diphenhydramine HCl (Benadryl) 25 mg Q6H PRN IV ITCHING Last administered on 06:34; Admin Dose 25 MG; Start 10/11/16 at 16:19 Hydralazine HCl 10 mg 10 mg Q4H PRN IV ELEVATED BLOOD PRESSURE; Start 10/15/16 at 10:00 Acetaminophen (Ofirmev 1000mg/ 100ml Iv) 100 ml @ 400 mls/hr Q6H PRN IVPB HEADACHE Last administered on 10/27/16 09:48; Admin Dose 400 MLS/HR; Start at 10:00 IV Flush (NS 10 ml) 10 ml PRN PRN IV FLUSH LINE Last administered on 10/22/16 20:40; Admin Dose 10 ML; Start 10/16/16 at 11:00 Tramadol HCl (Ultram) 50 mg Q6H PRN PO PAIN LEVEL 6-10 Last administered on 10/29 01:56; Admin Dose 50 MG; Start 10/19/16 at 23:00 Hydromorphone HCl (Dilaudid) 0.5 mg Q8 PRN IV PAIN Last administered on 03:04; Admin Dose 0.5 MG; Start 10/23/16 at 06:00 Pantoprazole 40 mg 40 mg DAILY@06 PO Last administered on 10/29/16 05:41; Admin Dose 40 MG; Start 10/25/16 at 06:00 Ondansetron HCl/ Dextrose (Zofran Inj/D5W) 54 ml @ 108 mls/hr Q8H PRN IV NAUSEA AND/OR VOMITING; Start 10/24/16 at 17:30 Prochlorperazine 10 mg 10 mg Q8H PRN IV NAUSEA AND/OR VOMITING Last administered on 10/29/16 15:38; Admin Dose 10 MG; Start 10/24/16 at 17:30 Sodium Chloride (NS) 1,000 ml @ 150 mls/hr Q6H40M PRN IV INFUSE DURING IFOSFAMIDE Last administered on 10/27/16 22:36; Admin Dose 150 MLS/HR; Start at 20:00 Hydrocortisone (Solu-Cortef) 100 mg PRN PRN IV ALLERGIC REACTION; Start at 22:00 Diphenhydramine HCl 50 mg 50 mg PRN PRN IV ALLERGIC REACTION; Start 10/25/16 at 22:00 Ceftriaxone Sodium (Rocephin) 50 ml @ 100 mls/hr Q24H IVPB Last administered on 10/29/16 16:27; Admin Dose 100 MLS/HR; Start 10/25/16 at 17:00 Bisacodyl (Dulcolax) 5 mg DAILY PRN PO CONSTIPATION Last administered on 10:31; Admin Dose 5 MG; Start 10/28/16 at 10:00 Ondansetron HCl (Zofran Inj) 4 mg Q6H PRN IV NAUSEA AND/OR VOMITING Last administered on 10/29/16 10:50; Admin Dose 4 MG; Start 10/29/16 at 09:00 Metoprolol Tartrate (Lopressor) 5 mg Q4H PRN IV HR>110 Hold SBP<100; Start 10/29 at 18:00 Atenolol (Tenormin) 25 mg BID PO ; Start 10/29/16 at 21:00 ELVIN TEIXEIRA October 29, 2016 18:39
--- NOTE | 2016-10-29 20:37 | PN ---
Date/Time of Note Date/Time of Note DATE: 10/29/16 TIME: 20:33 Assessment/Plan VTE Prophylaxis VTE Prophylaxis Intervention: SCD's Lines/Catheters IV Catheter Type (from Nrs): PICC Line Central line still needed: Yes Urinary Cath still in place: No Assessment/Plan Chief Complaint/Hosp Course stage IV endometrial cancer Problems: Assessment/Plan A- tolerated chemo although some cardiac issues being addressed Note: some of the issue may be due to large drain output, presumadly due to a lymphatic fluid issue P- Discuss with med onc and consider CT to confirm Subjective 24 Hr Interval Summary Free Text/Dictation Seen earlier. some discomfort and nausea. Voided. Exam/Review of Systems Vital Signs Vitals Vital Signs Date Time Temp Pulse Resp B/P Pulse Ox O2 Delivery O2 Flow Rate FiO2 10/29/16 20:00 132 10/29/16 18:53 98.7 16 109/67 99 10/29/16 00:38 Room Air 10/29/16 00:38 2.0 Intake and Output 10/28/16 10/28/16 10/29/16 15:00 23:00 07:00 Intake Total 2130 ml 60 ml Output Total 1500 ml 1740 ml Balance 630 ml -1680 ml Exam Respiratory: normal air movement Cardiovascular: regular rate and rhythm Extremities: edema Results Result Diagram: 10/29/16 0555 10/29/16 0555 Results 24 hrs Laboratory Tests Test 10/29/16 05:55 10/29/16 18:45 White Blood Count 51.9 #H Red Blood Count 4.02 L Hemoglobin 11.5 L Hematocrit 35.0 L Mean Corpuscular Volume 87.1 Mean Corpuscular Hemoglobin 28.6 L Mean Corpuscular Hemoglobin Concent 32.9 Red Cell Distribution Width 13.4 Platelet Count 405 Mean Platelet Volume 9.5 Band Neutrophils % 7.0 H Lymphocytes % 2.0 L Neutrophils # 47.2 H Lymphocytes # 1.0 Differential Comment MANUAL DIFF Sodium Level 132 L Potassium Level 3.9 Chloride Level 105 Carbon Dioxide Level 26 Anion Gap 5 L Blood Urea Nitrogen 20 Creatinine 0.81 Glucose Level 146 Calcium Level 7.8 L Total Bilirubin 0.4 Direct Bilirubin 0.00 Indirect Bilirubin 0.4 Aspartate Amino Transf (AST/SGOT) 55 H Alanine Aminotransferase (ALT/SGPT) 40 Alkaline Phosphatase 74 Total Protein 4.7 L Albumin 2.2 L Globulin 2.50 Albumin/Globulin Ratio 0.88 Troponin I < 0.012 Thyroid Stimulating Hormone (TSH) 1.980 Medications Medications Current Medications Potassium Cl/ Dextrose/Lact Ringer's (D5-Lr + KCl 20 Meq) 1,000 ml @ 60 mls/hr [id number] IV Last administered on 10/29/16 13:21; Admin Dose 60 MLS/HR; Start 06/16 at 17:00 Dimethicone (Blistex Lip [place]) 1 applic Q2H PRN TOP CHAPPED LIPS; Start at 09:30 Diphenhydramine HCl (Benadryl) 25 mg Q6H PRN IV ITCHING Last administered on 06:34; Admin Dose 25 MG; Start 10/11/16 at 16:19 Hydralazine HCl 10 mg 10 mg Q4H PRN IV ELEVATED BLOOD PRESSURE; Start 10/15/16 at 10:00 Acetaminophen (Ofirmev 1000mg/ 100ml Iv) 100 ml @ 400 mls/hr Q6H PRN IVPB HEADACHE Last administered on 10/27/16 09:48; Admin Dose 400 MLS/HR; Start at 10:00 IV Flush (NS 10 ml) 10 ml PRN PRN IV FLUSH LINE Last administered on 10/22/16 20:40; Admin Dose 10 ML; Start 10/16/16 at 11:00 Tramadol HCl (Ultram) 50 mg Q6H PRN PO PAIN LEVEL 6-10 Last administered on 10/29 01:56; Admin Dose 50 MG; Start 10/19/16 at 23:00 Hydromorphone HCl (Dilaudid) 0.5 mg Q8 PRN IV PAIN Last administered on 03:04; Admin Dose 0.5 MG; Start 10/23/16 at 06:00 Pantoprazole 40 mg 40 mg DAILY@06 PO Last administered on 10/29/16 05:41; Admin Dose 40 MG; Start 10/25/16 at 06:00 Ondansetron HCl/ Dextrose (Zofran Inj/D5W) 54 ml @ 108 mls/hr Q8H PRN IV NAUSEA AND/OR VOMITING; Start 10/24/16 at 17:30 Prochlorperazine 10 mg 10 mg Q8H PRN IV NAUSEA AND/OR VOMITING Last administered on 10/29/16 15:38; Admin Dose 10 MG; Start 10/24/16 at 17:30 Sodium Chloride (NS) 1,000 ml @ 150 mls/hr Q6H40M PRN IV INFUSE DURING IFOSFAMIDE Last administered on 10/27/16 22:36; Admin Dose 150 MLS/HR; Start at 20:00 Hydrocortisone (Solu-Cortef) 100 mg PRN PRN IV ALLERGIC REACTION; Start at 22:00 Diphenhydramine HCl 50 mg 50 mg PRN PRN IV ALLERGIC REACTION; Start 10/25/16 at 22:00 Ceftriaxone Sodium (Rocephin) 50 ml @ 100 mls/hr Q24H IVPB Last administered on 10/29/16 16:27; Admin Dose 100 MLS/HR; Start 10/25/16 at 17:00 Bisacodyl (Dulcolax) 5 mg DAILY PRN PO CONSTIPATION Last administered on 10:31; Admin Dose 5 MG; Start 10/28/16 at 10:00 Ondansetron HCl (Zofran Inj) 4 mg Q6H PRN IV NAUSEA AND/OR VOMITING Last administered on 10/29/16 10:50; Admin Dose 4 MG; Start 10/29/16 at 09:00 Metoprolol Tartrate (Lopressor) 5 mg Q4H PRN IV HR>110 Hold SBP<100; Start 10/29 at 18:00 Atenolol (Tenormin) 25 mg BID PO ; Start 10/29/16 at 21:00 NUPUR RODRÍGUEZ MD October 29, 2016 20:37
[2016-10-29] MEDS ORDERED: BARIUM SULF 2% 450 ML BTL (BERRY SMOOTHIE) PO ONE (21:00)
[2016-10-29] MEDS: ATENOLOL 25 MG TAB PO SCH (21:11)
--- NOTE | 2016-10-29 21:30 | CONS ---
DATE OF ADMISSION: 10/10/2016 DATE OF CONSULTATION: 10/29/2016 REASON FOR CONSULTATION: Tachyarrhythmia. REQUESTING PHYSICIAN: Arlene Chowdary MD HISTORY OF PRESENT ILLNESS: Ms. Gan is a 56-year-old female with a history of recently diagnos ed endometrial cancer, 09/17/2016, now status post TAHBSO and has received 1 cycle of chemotherapy i ncluding ifosfamide and Taxol and has developed significant tachycardia to 150s and 160s and associa joseluis complaints of nausea. The patient denies chest pain or shortness of breath at this time. PAST MEDICAL HISTORY: As above in HPI with additionally a past medical history of hypertension, dys lipidemia, gastritis. MEDICATIONS CURRENTLY IN HOSPITAL: 1. Benadryl p.r.n. 2. IV fluid hydration 50 mL an hour. 3. Ceftriaxone IV. 4. Protonix 40 mg daily. 5. Zofran p.r.n. 6. Dilaudid p.r.n. 7. Ultram p.r.n. 8. Hydralazine p.r.n. 9. Simethicone. 10. Tylenol p.r.n. ALLERGIES: NO KNOWN DRUG ALLERGIES. SOCIAL HISTORY: No tobacco, ETOH, or illicit drug use. FAMILY HISTORY: No history of sudden cardiac or early CAD. REVIEW OF SYSTEMS: As above in HPI. CONSTITUTIONAL: No fevers, chills. PULMONARY: Shortness of breath. CARDIOVASCULAR: Tachycardia. GASTROINTESTINAL: Nausea, but no gross vomiting. GENITOURINARY: No hematuria. MUSCULOSKELETAL: No significant myalgias or arthralgias. ENDOCRINE: No documented of thyroid disease or diabetes mellitus. HEMATOLOGY/ONCOLOGY: Endometrial cancer. PHYSICAL EXAMINATION: VITAL SIGNS: Temperature of 97.6, blood pressure 115/71, pulse 126, respiratory rate 16, satting 99 %. GENERAL: The patient is alert, awake, and complaining of palpitations, nausea. NECK: No jugular venous distention. CHEST: Fair air movement throughout. HEART: Tachycardic. Regular rhythm. Normal S1, S2, I/ systolic murmur, nondisplaced PMI. ABDOMEN: Positive bowel sounds, soft. Midline incision clean, dry, and intact with ag place. EXTREMITIES: No pitting edema, 1+ pulses bilaterally, posterior tibial. LABORATORIES: As above in HPI, with most recent from today: White blood cell count 51.9, hemoglobi n of 11.5, platelet count of 405. Sodium 132, potassium 3.9, creatinine of 0.8, BUN 20. INR 1.1. UA borderline. IMAGING STUDIES: No imaging studies for my review at this time. ELECTROCARDIOGRAM: From October 28 revealed sinus tachycardia at a rate of 133, borderline low volt age in limb leads, borderline right axis deviation with nonspecific ST and T-wave abnormalities. IMPRESSION: 1. Tachyarrhythmia, most consistent with sinus tachycardia at this time. 2. History of hypertension with stable blood pressures at this time. 3. Abnormal electrocardiogram with right axis deviation and nonspecific ST-T abnormalities, assess for acute coronary syndrome. 4. History of dyslipidemia. 5. Endometrial cancer status post 1 cycle of chemotherapy with Taxol and ifosfamide. 6. Leukocytosis, severe, assess for infection. 7. Hyponatremia. 8. Anemia. RECOMMENDATIONS: 1. At this time, would maintain the patient on telemetry monitoring to follow rhythm and rate contr ol closely. 2. We will continue the patient's aggressive IV fluid hydration, consider further bolusing as beata wyatt. 3. Continue to follow the patient's blood pressure closely. 4. Give patient IV push p.r.n. beta lucy for patient comfort and can start patient on p.o. beta lucy as necessary for patient comfort. 5. Check a TSH to be sure that subclinical hyperthyroidism is not contributing to bouts of tachycar pro. 6. Possible etiology of the patient's tachycardia of chemotherapy would be Taxol, known to cause ar rhythmias, and therefore possibly if we could wait in between cycles as long as possible may help. 7. Check a 2D echocardiogram to further assess patient's ejection fraction, wall motion, or any nikhil or valve abnormalities that may be associated with this patient's tachycardia. 8. Would check serial EKGs to assess for any significant ongoing changes. 9. Continue the patient's antibiotics and would check blood cultures and follow up. 10. Continue to follow the patient's urine culture as well. Thank you for allowing me to take part in the care of this patient. I will continue to follow very closely with you with further recommendations to be made as the patient progresses through her [facility] clinical course. Dictated By: BALDEMAR RING/SHELLY Conf#: [id number] [facility]#: [id number] CC: NUPUR RODRÍGUEZ MD; ARLENE CHOWDARY MD;*[facility]*
[2016-10-29] MEDS ORDERED: DIATR MEGLU/DIATRIZOATE SODIUM 120 ML BTL ONE (22:20)
[2016-10-30] VITALS (12 sets, daily range): BP systolic 94–117; BP diastolic 55–71; PULSE 87–122; RESP 16–18
[2016-10-30] MEDS ORDERED: SOD CHLORIDE 0.9% 100 ML ONE (00:20)
[2016-10-30] MEDS ORDERED: IOHEXOL 300MG/ML 150 ML BTL ONE (00:20)
--- NOTE | 2016-10-30 01:40 | RADRPT ---
PROCEDURE: CT Abdomen and pelvis with contrast. CLINICAL INDICATION: Abdominal pain, endometrial cancer. TECHNIQUE: CT scan of the abdomen and pelvis with contrast was performed on a multi-detector high -resolution CT scanner. The patient was scanned following the uncomplicated administration of 100 c c of Omnipaque 300 intravenous contrast. Coronal and sagittal reformatted images were obtained from the axial source images. Images were reviewed on a high-resolution PACS workstation. One or more of the following dose reduction techniques were used: - Automated exposure control. - Adjustment of the mA and/or kV according to patient size. - Use of iterative reconstruction technique. Exam CTD/vol = 12.87 mGy. Total exam DLP = 733.28 mGy-cm. COMPARISON: None. FINDINGS: Evaluation of the lung bases demonstrates mild bibasilar atelectasis and small pleural effusions. Th ere are multiple soft tissue nodules within the anterior cardiophrenic fat and para-esophageal regio n with the largest measuring 2.1 x 2.3 cm. Abdomen: The liver is normal in size. There is no focal mass or dilatation of the biliary tree. T he patient is status post cholecystectomy. The spleen, pancreas and bilateral adrenal glands are wi thin normal limits. Bilateral kidneys are normal in size with symmetric enhancement. There is no r enal mass identified. There is moderate right and mild left-sided hydronephrosis. There is extensi ve retroperitoneal lymphadenopathy with soft tissue implants. The abdominal aorta is of normal helder chema. Midline abdominal ag are present. There is a left-sided change cath extending into the pelvis especially along the liver and gallbladder fossa. There is a soft tissue and line within the right lower abdomen measuring 3.5 x 3.0 cm. There is no bowel obstruction or free air. The appendix is n ot visualized. There is no diverticulosis or diverticulitis. There is no ascites. Pelvis: The bladder demonstrates mild wall thickening which could be due to underdistension. There is diffuse intra-abdominal stranding and extensive soft tissue implants with a cluster within the r ight pelvic sidewall measuring 6.0 x 3.6 cm. There is no significant pelvic free fluid. There is gomez bcutaneous stranding consistent with anasarca. Evaluation of the osseous structures demonstrates no suspicious lytic or blastic lesion. IMPRESSION: Extensive metastatic soft tissue implants throughout the abdomen and pelvis. Moderate right and mild left-sided hydronephrosis secondary to soft tissue implants. Mild bibasilar atelectasis and small pleural effusions. Status post cholecystectomy. Left-sided drainage catheter extending into the right pelvis. Anasarca. .David Nixon MD, Date Time Electronically viewed and signed by .David Nixon MD, on 10/30/2016 01:40 .T/
[2016-10-30] MEDS: PANTOPRAZOLE (EC) 40 MG TAB PO SCH (05:29)
[2016-10-30] MEDS: D5-LR + KCL 20 MEQ 1,000 ML IV SCH ×2 (05:30→17:46)
[2016-10-30] MEDS: ONDANSETRON 4 MG INJ IV PRN ×2 (06:10→18:05)
[2016-10-30] MEDS: ATENOLOL 25 MG TAB PO SCH ×2 (08:07→21:04)
[2016-10-30 08:39] LABS: ADD SCAN DIFF NO
[2016-10-30 08:48] LABS: ABNORMAL IP MESSAGE 1; HEMOGLOBIN 10.2 g/dl (12.0-16.0); MEAN CORPUSCULAR HEMOGLOBIN 28.1 pg (29.0-33.0); MEAN CORPUSCULAR HGB CONC 31.9 g/dl (32.0-37.0); MEAN CORPUSCULAR VOLUME 88.2 fl (82.0-101.0); PLATELET COUNT 323 10^3/UL (140-415); RED BLOOD COUNT 3.63 10^6/ul (4.20-5.40); RED CELL DISTRIBUTION WIDTH 13.4 % (11.5-14.5); WHITE BLOOD COUNT 28.7 10^3/ul (4.8-10.8)
[2016-10-30 09:27] LABS: ALBUMIN 2.1 g/dl (3.3-4.9); ALBUMIN/GLOBULIN RATIO 0.87; BILIRUBIN,INDIRECT 0.2 mg/dl (0-1.1); BILIRUBIN,TOTAL 0.2 mg/dl (0.2-1.3); CALCIUM 7.8 mg/dl (8.4-10.2); CREATININE 0.8 mg/dl (0.44-1.00); POTASSIUM 3.7 mmol/L (3.5-5.1); TOTAL PROTEIN 4.5 g/dl (6.1-8.1)
[2016-10-30 09:31] LABS: CHOL/HDL RATIO 5.7 RATIO
--- NOTE | 2016-10-30 11:27 | RADRPT ---
Vent Rate: 133 bpm RR Interval: 0 msec MO Interval: 112 msec QRS Duration: 80 msec QT Interval: 292 msec QTC Interval: 434 msec P-R-T [place]: 48 - 90 - 49 degrees Sinus tachycardia Rightward axis Borderline ECG Electronically Signed By: Angel Solis [id number]
--- NOTE | 2016-10-30 13:10 | RADRPT ---
Echocardiogram Report Patient Name: WINNIE GALLARDO Gender: Female Date: 1960 Study Date: 30-Oct-2016 Shaker Plate Operator: Frankie Brooks [facility] Location: [facility] [place] [place] Ref. Physician: BALDEMAR RIVERA Quality: Good Procedures: Transthoracic echocardiogram with complete 2D, M-Mode, and doppler examination. Indications: Tachycardia. 2D/M Mode Doppler Measurement Value Normal Ranges Measurement Value Normal Ranges LVIDd 2D 3.8 3.5 - 5.6 cm AV Peak Kamlesh 1.0 m/sec LVIDs 2D 2.1 2.1 - 4.1 cm AV Peak PG 4.3 mmHg LVPWd 2D 0.9 0.6 - 1.1 cm LVOT Peak Kamlesh 1.0 m/sec IVSd 2D 0.8 0.6 - 1.1 cm LVOT Peak PG 4.3 mmHg AoR Diam 2D 2.5 2.0 - 3.7 cm MV E Peak Kamlesh 0.5 m/sec EDV 2D 60.2 cm3 MV A Peak Kamlesh 0.6 m/sec ESV 2D 9.4 cm3 MV E/A 0.7 LA Dimen 2D 2.7 2.3 - 4.0 cm MV Decel Time 119 msec MV Decel [place] 4 MV E/A 0.7 Findings Left Ventricle: Normal left ventricular systolic function. Normal left ventricular cavity size. Normal left ventricular wall thickness. Ejection fraction is visually estimated at 65 %. Tissue Doppler/Mitral Doppler indices are consistent with impaired relaxation (Stage I diastolic dysfunction). Right Ventricle: Normal right ventricular size. Normal right ventricular systolic function. Left Atrium: The left atrium is normal in size. Right Atrium: The right atrium is normal in size. Mitral Valve: Normal appearance and function of the mitral valve with trace physiologic regurgitation. Aortic Valve: Normal appearance of the aortic valve. No significant aortic stenosis or insufficiency. Tricuspid Valve: Normal appearance and function of the tricuspid valve with trace physiologic regurgitation. Normal right ventricular systolic pressure. Pulmonic Valve: Normal pulmonic valve appearance. Pericardium: Normal pericardium with no significant pericardial effusion. Aorta: Normal aortic root. IVC: Normal size and normal respiratory collapse consistent with normal right atrial pressure. Conclusions 1.Normal left ventricular systolic function. Normal left ventricular cavity size. Normal left ventricular wall thickness. Ejection fraction is visually estimated at 65 %. Tissue Doppler/Mitral Doppler indices are consistent with impaired relaxation (Stage I diastolic dysfunction). 2.Normal appearance and function of the mitral valve with trace physiologic regurgitation. 3.Normal appearance and function of the tricuspid valve with trace physiologic regurgitation. Normal right ventricular systolic pressure. Electronically Signed By: Yusuf Price 30-Oct-2016 13:09:20 -0700 Patient Name: WINNIE GALLARDO Study Date: 30-Oct-2016 [id number]
[2016-10-30 13:50] LABS: LYMPHOCYTES # 0.9 10^3/ul (0.8-2.9); NEUTROPHIL # 27.8 10^3/ul (1.6-7.5)
--- NOTE | 2016-10-30 14:20 | CONS ---
Date/Time of Note Date/Time of Note DATE: 10/30/16 TIME: 14:13 Assessment/Plan Assessment/Plan Chief Complaint/Hosp Course The patient is a 56-year-old female with recent diagnosis of endometrial cancer on 09/17/2016 by endometrial biopsy. The patient was diagnosed with stage IV endometrial cancer. She underwent CYNDI/BSO and recto-sigmoid en-bloc with low anastomosis per Dr. Bueno on 10/11/16. She had extensive positive retroperitoneal lymph nodes removed as well. - Path report showed metastatic carcinosarcoma. Ifosfamide/taxol with carbo taxol chemorx recommended: Dr. Bueno, would like to treat with 8 cycles of each regimen. Side effects including N/V, fatigue, myelosuppression, allergic reaction, confusion, hemorrhagic cystitis discussed with the patient. -Patient is now cycle 1 day 5 of ifosfamide/taxol 10/25/16, tolerated fairly well thus far. labs stable and continue supportive care. -Pt remains tachycardic. This may be secondary to the taxol. no signs of chest pain. -Ct A/P done yesterday shows no evidence of acute intraabdominal process. known metastatic disease was seen Recs - continue to monitor for [employer] symptoms. currently there are no signs of encephalopathy with ifosfamide. - continue antiemetic support. Zofran 8mg IV q 6 started. will consider given Akynzeo with next cycle - Avoid benzodiazepines or Ambien while receiving ifosfamide. -continue to monitor counts -cont to monitor HR. may be secondary to the Taxol. appreciate cardiology consult. continue IV hydration in case dehydration is contributing to this -cont ceftriaxone for UTI Problems: Consultation Date/Type/Reason Admit Date/Time Oct 10, 2016 at 09:46 Initial Consult Date 10/12/16 Type of Consultation: Oncology Reason for Consultation metastatic uterine sarcoma Referring Provider: ARLENE CHOWDARY MD 24 HR Interval Summary Free Text/Dictation patient's HR has improved but still becomes tachycardic with exertion. denies abdominal pain. shortness of breath is stable. BJ drain drained 1500cc overnight Exam/Review of Systems Vital Signs Vitals Vital Signs Date Time Temp Pulse Resp B/P Pulse Ox O2 Delivery O2 Flow Rate FiO2 10/30/16 12:15 98.6 110 18 107/55 99 10/30/16 08:00 Nasal Cannula 2.0 Intake and Output 10/29/16 10/29/16 10/30/16 15:00 23:00 07:00 Intake Total 360 ml 1830 ml Balance 360 ml 1830 ml Exam Constitutional: alert, oriented Head: normocephalic Eyes: nl conjunctiva ENMT: nl external ears & nose, nl lips & teeth, other (Nasal cannula in place) Neck: supple Respiratory: clear to auscultation, normal air movement Cardiovascular: regular rate and rhythm Gastrointestinal: soft Musculoskeletal: nl extremities to inspection, nl gait and stance Extremities: normal pulses Results Result Diagram: 10/30/16 0753 10/30/16 0753 Results 24 hrs Laboratory Tests Test 10/29/16 18:45 10/30/16 00:30 10/30/16 07:53 Troponin I < 0.012 < 0.012 < 0.012 Thyroid Stimulating Hormone (TSH) 1.980 White Blood Count 28.7 #H Red Blood Count 3.63 L Hemoglobin 10.2 L Hematocrit 32.0 L Mean Corpuscular Volume 88.2 Mean Corpuscular Hemoglobin 28.1 L Mean Corpuscular Hemoglobin Concent 31.9 L Red Cell Distribution Width 13.4 Platelet Count 323 # Mean Platelet Volume 10.0 Neutrophils % 97.0 H Lymphocytes % 3.0 L Neutrophils # 27.8 H Lymphocytes # 0.9 Sodium Level 130 L Potassium Level 3.7 Chloride Level 105 Carbon Dioxide Level 24 Anion Gap 5 L Blood Urea Nitrogen 23 H Creatinine 0.80 Glucose Level 138 Calcium Level 7.8 L Total Bilirubin 0.2 Direct Bilirubin 0.00 Indirect Bilirubin 0.2 Aspartate Amino Transf (AST/SGOT) 49 H Alanine Aminotransferase (ALT/SGPT) 34 Alkaline Phosphatase 74 Total Protein 4.5 L Albumin 2.1 L Globulin 2.40 Albumin/Globulin Ratio 0.87 Triglycerides Level 162 H Cholesterol Level 127 LDL Cholesterol, Calculated 73 HDL Cholesterol 22 L Cholesterol/HDL Ratio 5.7 Medications Medications Current Medications Potassium Cl/ Dextrose/Lact Ringer's (D5-Lr + KCl 20 Meq) 1,000 ml @ 80 mls/hr [id number] IV Last administered on 10/30/16t 05:30; Admin Dose 80 MLS/HR; Start 06/16 at 17:00 Dimethicone (Blistex Lip [place]) 1 applic Q2H PRN TOP CHAPPED LIPS; Start at 09:30 Diphenhydramine HCl (Benadryl) 25 mg Q6H PRN IV ITCHING Last administered on 06:34; Admin Dose 25 MG; Start 10/11/16 at 16:19 Hydralazine HCl 10 mg 10 mg Q4H PRN IV ELEVATED BLOOD PRESSURE; Start 10/15/16 at 10:00 Acetaminophen (Ofirmev 1000mg/ 100ml Iv) 100 ml @ 400 mls/hr Q6H PRN IVPB HEADACHE Last administered on 10/27/16 09:48; Admin Dose 400 MLS/HR; Start at 10:00 IV Flush (NS 10 ml) 10 ml PRN PRN IV FLUSH LINE Last administered on 10/22/16 20:40; Admin Dose 10 ML; Start 10/16/16 at 11:00 Tramadol HCl (Ultram) 50 mg Q6H PRN PO PAIN LEVEL 6-10 Last administered on 10/29 01:56; Admin Dose 50 MG; Start 10/19/16 at 23:00 Hydromorphone HCl (Dilaudid) 0.5 mg Q8 PRN IV PAIN Last administered on 03:04; Admin Dose 0.5 MG; Start 10/23/16 at 06:00 Pantoprazole 40 mg 40 mg DAILY@06 PO Last administered on 10/30/16 05:29; Admin Dose 40 MG; Start 10/25/16 at 06:00 Ondansetron HCl/ Dextrose (Zofran Inj/D5W) 54 ml @ 108 mls/hr Q8H PRN IV NAUSEA AND/OR VOMITING; Start 10/24/16 at 17:30 Prochlorperazine 10 mg 10 mg Q8H PRN IV NAUSEA AND/OR VOMITING Last administered on 10/29/16 15:38; Admin Dose 10 MG; Start 10/24/16 at 17:30 Sodium Chloride (NS) 1,000 ml @ 150 mls/hr Q6H40M PRN IV INFUSE DURING IFOSFAMIDE Last administered on 10/27/16 22:36; Admin Dose 150 MLS/HR; Start at 20:00 Hydrocortisone (Solu-Cortef) 100 mg PRN PRN IV ALLERGIC REACTION; Start at 22:00 Diphenhydramine HCl 50 mg 50 mg PRN PRN IV ALLERGIC REACTION; Start 10/25/16 at 22:00 Ceftriaxone Sodium (Rocephin) 50 ml @ 100 mls/hr Q24H IVPB Last administered on 10/29/16 16:27; Admin Dose 100 MLS/HR; Start 10/25/16 at 17:00 Bisacodyl (Dulcolax) 5 mg DAILY PRN PO CONSTIPATION Last administered on 10:31; Admin Dose 5 MG; Start 10/28/16 at 10:00 Ondansetron HCl (Zofran Inj) 4 mg Q6H PRN IV NAUSEA AND/OR VOMITING Last administered on 10/30/16 06:10; Admin Dose 4 MG; Start 10/29/16 at 09:00 Metoprolol Tartrate (Lopressor) 5 mg Q4H PRN IV HR>110 Hold SBP<100; Start 10/29 at 18:00 Atenolol (Tenormin) 25 mg BID PO Last administered on 10/29/16 21:11; Admin Dose 25 MG; Start 10/29/16 at 21:00 RUSS HINES M.D. October 30, 2016 14:19
--- NOTE | 2016-10-30 14:52 | CONS ---
Date/Time of Note Date/Time of Note DATE: 10/30/16 TIME: 14:50 Assessment/Plan Assessment/Plan Additional Assessment/Plan 1. Tachyarrhythmia, most consistent with sinus tachycardia at this time- rate well controlled,ok to hydrate as needed 2. History of hypertension with stable blood pressures at this time- better now 3. Abnormal electrocardiogram with right axis deviation and nonspecific ST-T abnormalities, assess for acute coronary syndrome- r/o OK, doubt ischemia 4. History of dyslipidemia. 5. Endometrial cancer status post 1 cycle of chemotherapy with Taxol and ifosfamide - oncology follows 6. Leukocytosis, severe, assess for infection- on anti-bx 7. Hyponatremia. 8. Anemia. Consultation Date/Type/Reason Admit Date/Time Oct 10, 2016 at 09:46 Initial Consult Date 10/12/16 Type of Consultation: Oncology Referring Provider: ARLENE CHOWDARY MD 24 HR Interval Summary Free Text/Dictation No acute change -BP stable - in good fluid status now. Sinus on tele. ROS: No fever, no chills, no nausea, no vomiting, no diarrhea/constipation No recent weight changes No chest pain, no PND, no orthopnea No dizziness, blurred vision No thirst, no heat or cold intolerance Exam/Review of Systems Vital Signs Vitals Vital Signs Date Time Temp Pulse Resp B/P Pulse Ox O2 Delivery O2 Flow Rate FiO2 10/30/16 12:15 98.6 110 18 107/55 99 10/30/16 08:00 Nasal Cannula 2.0 Intake and Output 10/29/16 10/29/16 10/30/16 15:00 23:00 07:00 Intake Total 360 ml 1830 ml Balance 360 ml 1830 ml Exam General: WN/WD/NAD, AOx 3 HEENT: Unicetric/atraumatic/EOMI (follow commands) NECK: JVD elevated, no thyromegaly Lymph: no lymphadenopathy HEART: regular with no S3, II/ systolic murmur at apex LUNGS: Coarse sounds ABD: soft, NT, ND, +BS : Intact Neuro: non focal SKIN: chronic changes EXT: trace edema Results Result Diagram: 10/30/16 0753 10/30/16 0753 Results 24 hrs Laboratory Tests Test 10/29/16 18:45 10/30/16 00:30 10/30/16 07:53 Troponin I < 0.012 < 0.012 < 0.012 Thyroid Stimulating Hormone (TSH) 1.980 White Blood Count 28.7 #H Red Blood Count 3.63 L Hemoglobin 10.2 L Hematocrit 32.0 L Mean Corpuscular Volume 88.2 Mean Corpuscular Hemoglobin 28.1 L Mean Corpuscular Hemoglobin Concent 31.9 L Red Cell Distribution Width 13.4 Platelet Count 323 # Mean Platelet Volume 10.0 Neutrophils % 97.0 H Lymphocytes % 3.0 L Neutrophils # 27.8 H Lymphocytes # 0.9 Sodium Level 130 L Potassium Level 3.7 Chloride Level 105 Carbon Dioxide Level 24 Anion Gap 5 L Blood Urea Nitrogen 23 H Creatinine 0.80 Glucose Level 138 Calcium Level 7.8 L Total Bilirubin 0.2 Direct Bilirubin 0.00 Indirect Bilirubin 0.2 Aspartate Amino Transf (AST/SGOT) 49 H Alanine Aminotransferase (ALT/SGPT) 34 Alkaline Phosphatase 74 Total Protein 4.5 L Albumin 2.1 L Globulin 2.40 Albumin/Globulin Ratio 0.87 Triglycerides Level 162 H Cholesterol Level 127 LDL Cholesterol, Calculated 73 HDL Cholesterol 22 L Cholesterol/HDL Ratio 5.7 Medications Medications Current Medications Potassium Cl/ Dextrose/Lact Ringer's (D5-Lr + KCl 20 Meq) 1,000 ml @ 80 mls/hr [id number] IV Last administered on 10/30/16 05:30; Admin Dose 80 MLS/HR; Start 06/16 at 17:00 Dimethicone (Blistex Lip [address]) 1 applic Q2H PRN TOP CHAPPED LIPS; Start at 09:30 Diphenhydramine HCl (Benadryl) 25 mg Q6H PRN IV ITCHING Last administered on 06:34; Admin Dose 25 MG; Start 10/11/16 at 16:19 Hydralazine HCl 10 mg 10 mg Q4H PRN IV ELEVATED BLOOD PRESSURE; Start 10/15/16 at 10:00 Acetaminophen (Ofirmev 1000mg/ 100ml Iv) 100 ml @ 400 mls/hr Q6H PRN IVPB HEADACHE Last administered on 10/27/16 09:48; Admin Dose 400 MLS/HR; Start at 10:00 IV Flush (NS 10 ml) 10 ml PRN PRN IV FLUSH LINE Last administered on 10/22/16 20:40; Admin Dose 10 ML; Start 10/16/16 at 11:00 Tramadol HCl (Ultram) 50 mg Q6H PRN PO PAIN LEVEL 6-10 Last administered on 10/29 01:56; Admin Dose 50 MG; Start 10/19/16 at 23:00 Hydromorphone HCl (Dilaudid) 0.5 mg Q8 PRN IV PAIN Last administered on 03:04; Admin Dose 0.5 MG; Start 10/23/16 at 06:00 Pantoprazole 40 mg 40 mg DAILY@06 PO Last administered on 10/30/16 05:29; Admin Dose 40 MG; Start 10/25/16 at 06:00 Ondansetron HCl/ Dextrose (Zofran Inj/D5W) 54 ml @ 108 mls/hr Q8H PRN IV NAUSEA AND/OR VOMITING; Start 10/24/16 at 17:30 Prochlorperazine 10 mg 10 mg Q8H PRN IV NAUSEA AND/OR VOMITING Last administered on 10/29/16 15:38; Admin Dose 10 MG; Start 10/24/16 at 17:30 Sodium Chloride (NS) 1,000 ml @ 150 mls/hr Q6H40M PRN IV INFUSE DURING IFOSFAMIDE Last administered on 10/27/16 22:36; Admin Dose 150 MLS/HR; Start at 20:00 Hydrocortisone (Solu-Cortef) 100 mg PRN PRN IV ALLERGIC REACTION; Start at 22:00 Diphenhydramine HCl 50 mg 50 mg PRN PRN IV ALLERGIC REACTION; Start 10/25/16 at 22:00 Ceftriaxone Sodium (Rocephin) 50 ml @ 100 mls/hr Q24H IVPB Last administered on 10/29/16 16:27; Admin Dose 100 MLS/HR; Start 10/25/16 at 17:00 Bisacodyl (Dulcolax) 5 mg DAILY PRN PO CONSTIPATION Last administered on 10:31; Admin Dose 5 MG; Start 10/28/16 at 10:00 Ondansetron HCl (Zofran Inj) 4 mg Q6H PRN IV NAUSEA AND/OR VOMITING Last administered on 10/30/16 06:10; Admin Dose 4 MG; Start 10/29/16 at 09:00 Metoprolol Tartrate (Lopressor) 5 mg Q4H PRN IV HR>110 Hold SBP<100; Start 10/29 at 18:00 Atenolol (Tenormin) 25 mg BID PO Last administered on 10/29/16 21:11; Admin Dose 25 MG; Start 10/29/16 at 21:00 JOHNNA PAUL MD October 30, 2016 14:52
--- NOTE | 2016-10-30 15:13 | PN ---
Date/Time of Note Date/Time of Note DATE: 10/30/16 TIME: 15:12 Assessment/Plan VTE Prophylaxis VTE Prophylaxis Intervention: SCD's Lines/Catheters IV Catheter Type (from [facility]): PICC Line Central line still needed: Yes Urinary Cath still in place: No Assessment/Plan Chief Complaint/Hosp Course Assessment and plan: - Stage IV endometrial cancer, status post surgical procedure with CYNDI/BSO and recto-sigmoid en-bloc with low anastomosis by Dr. Bueno on 10/11. Path report showed metastatic carcinosarcoma. Started on chemotherapy. Dr. Logan is following in oncology consultation. - Tachycardia, Dr. Oglesby is asked to see patient in cardiology consultation. - Hypertension. Continue hydralazine as needed for systolic blood pressure above 170. - Dyslipidemia. We will resume statins when patient is able to tolerate p.o. - Gastritis. Continue Protonix. Further recommendations based on clinical course. Plan of care discussed with Dr. Richardson. Problems: Subjective 24 Hr Interval Summary Free Text/Dictation Patient gets tachycardic when gets out of bed, sinus rhythm at rest, denies any nausea, denies any chest pain, poor appetite. Exam/Review of Systems Vital Signs Vitals Vital Signs Date Time Temp Pulse Resp B/P Pulse Ox O2 Delivery O2 Flow Rate FiO2 10/30/16 12:15 98.6 110 18 107/55 99 10/30/16 08:00 Nasal Cannula 2.0 Intake and Output 10/29/16 10/29/16 10/30/16 15:00 23:00 07:00 Intake Total 360 ml 1830 ml Balance 360 ml 1830 ml Exam Constitutional: alert, oriented Psych: no complaints Head: normocephalic Eyes: nl conjunctiva ENMT: nl external ears & nose Neck: non-tender, supple Respiratory: clear to auscultation, normal air movement Cardiovascular: nl pulses, regular rate and rhythm Gastrointestinal: other (Status post surgery, surgical incision is intact with ag and left lower quadrant BJ.), soft Musculoskeletal: nl extremities to inspection Extremities: normal pulses Neurological: 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 intact Results Result Diagram: 10/30/16 0753 10/30/16 0753 Results 24 hrs Laboratory Tests Test 10/29/16 18:45 10/30/16 00:30 10/30/16 07:53 Troponin I < 0.012 < 0.012 < 0.012 Thyroid Stimulating Hormone (TSH) 1.980 White Blood Count 28.7 #H Red Blood Count 3.63 L Hemoglobin 10.2 L Hematocrit 32.0 L Mean Corpuscular Volume 88.2 Mean Corpuscular Hemoglobin 28.1 L Mean Corpuscular Hemoglobin Concent 31.9 L Red Cell Distribution Width 13.4 Platelet Count 323 # Mean Platelet Volume 10.0 Neutrophils % 97.0 H Lymphocytes % 3.0 L Neutrophils # 27.8 H Lymphocytes # 0.9 Sodium Level 130 L Potassium Level 3.7 Chloride Level 105 Carbon Dioxide Level 24 Anion Gap 5 L Blood Urea Nitrogen 23 H Creatinine 0.80 Glucose Level 138 Calcium Level 7.8 L Total Bilirubin 0.2 Direct Bilirubin 0.00 Indirect Bilirubin 0.2 Aspartate Amino Transf (AST/SGOT) 49 H Alanine Aminotransferase (ALT/SGPT) 34 Alkaline Phosphatase 74 Total Protein 4.5 L Albumin 2.1 L Globulin 2.40 Albumin/Globulin Ratio 0.87 Triglycerides Level 162 H Cholesterol Level 127 LDL Cholesterol, Calculated 73 HDL Cholesterol 22 L Cholesterol/HDL Ratio 5.7 Medications Medications Current Medications Potassium Cl/ Dextrose/Lact Ringer's (D5-Lr + KCl 20 Meq) 1,000 ml @ 80 mls/hr [id number] IV Last administered on 10/30/16 05:30; Admin Dose 80 MLS/HR; Start 06/16 at 17:00 Dimethicone (Blistex Lip [place]) 1 applic Q2H PRN TOP CHAPPED LIPS; Start at 09:30 Diphenhydramine HCl (Benadryl) 25 mg Q6H PRN IV ITCHING Last administered on 06:34; Admin Dose 25 MG; Start 10/11/16 at 16:19 Hydralazine HCl 10 mg 10 mg Q4H PRN IV ELEVATED BLOOD PRESSURE; Start 10/15/16 at 10:00 Acetaminophen (Ofirmev 1000mg/ 100ml Iv) 100 ml @ 400 mls/hr Q6H PRN IVPB HEADACHE Last administered on 10/27/16 09:48; Admin Dose 400 MLS/HR; Start at 10:00 IV Flush (NS 10 ml) 10 ml PRN PRN IV FLUSH LINE Last administered on 10/22/16 20:40; Admin Dose 10 ML; Start 10/16/16 at 11:00 Tramadol HCl (Ultram) 50 mg Q6H PRN PO PAIN LEVEL 6-10 Last administered on 10/29 01:56; Admin Dose 50 MG; Start 10/19/16 at 23:00 Hydromorphone HCl (Dilaudid) 0.5 mg Q8 PRN IV PAIN Last administered on 03:04; Admin Dose 0.5 MG; Start 10/23/16 at 06:00 Pantoprazole 40 mg 40 mg DAILY@06 PO Last administered on 10/30/16 05:29; Admin Dose 40 MG; Start 10/25/16 at 06:00 Ondansetron HCl/ Dextrose (Zofran Inj/D5W) 54 ml @ 108 mls/hr Q8H PRN IV NAUSEA AND/OR VOMITING; Start 10/24/16 at 17:30 Prochlorperazine 10 mg 10 mg Q8H PRN IV NAUSEA AND/OR VOMITING Last administered on 10/29/16 15:38; Admin Dose 10 MG; Start 10/24/16 at 17:30 Sodium Chloride (NS) 1,000 ml @ 150 mls/hr Q6H40M PRN IV INFUSE DURING IFOSFAMIDE Last administered on 10/27/16 22:36; Admin Dose 150 MLS/HR; Start at 20:00 Hydrocortisone (Solu-Cortef) 100 mg PRN PRN IV ALLERGIC REACTION; Start at 22:00 Diphenhydramine HCl 50 mg 50 mg PRN PRN IV ALLERGIC REACTION; Start 10/25/16 at 22:00 Ceftriaxone Sodium (Rocephin) 50 ml @ 100 mls/hr Q24H IVPB Last administered on 10/29/16 16:27; Admin Dose 100 MLS/HR; Start 10/25/16 at 17:00 Bisacodyl (Dulcolax) 5 mg DAILY PRN PO CONSTIPATION Last administered on 10:31; Admin Dose 5 MG; Start 10/28/16 at 10:00 Ondansetron HCl (Zofran Inj) 4 mg Q6H PRN IV NAUSEA AND/OR VOMITING Last administered on 10/30/16 06:10; Admin Dose 4 MG; Start 10/29/16 at 09:00 Metoprolol Tartrate (Lopressor) 5 mg Q4H PRN IV HR>110 Hold SBP<100; Start 10/29 at 18:00 Atenolol (Tenormin) 25 mg BID PO Last administered on 10/29/16 21:11; Admin Dose 25 MG; Start 10/29/16 at 21:00 ELVIN TEIXEIRA October 30, 2016 15:13
[2016-10-30] MEDS: CEFTRIAXONE 1 GM/50 ML (PMX) 50 ML IVPB SCH (17:37)
[2016-10-30] MEDS: PROCHLORPERAZINE 10 MG INJ IV PRN (23:25)
[2016-10-31] VITALS (12 sets, daily range): BP systolic 86–113; BP diastolic 49–66; PULSE 80–94; RESP 16–20
[2016-10-31] MEDS: D5-LR + KCL 20 MEQ 1,000 ML IV SCH ×3 (05:45→21:11)
[2016-10-31] MEDS: PANTOPRAZOLE (EC) 40 MG TAB PO SCH (05:45)
[2016-10-31 06:59] LABS: ADD SCAN DIFF NO
[2016-10-31 07:04] LABS: ABNORMAL IP MESSAGE 1; HEMATOCRIT 29.3 % (37.0-47.0); HEMOGLOBIN 9.4 g/dl (12.0-16.0); MEAN CORPUSCULAR HEMOGLOBIN 28.3 pg (29.0-33.0); MEAN CORPUSCULAR HGB CONC 32.1 g/dl (32.0-37.0); MEAN CORPUSCULAR VOLUME 88.3 fl (82.0-101.0); MEAN PLATELET VOLUME 10.2 fl (7.4-10.4); PLATELET COUNT 268 10^3/UL (140-415); RED BLOOD COUNT 3.32 10^6/ul (4.20-5.40); RED CELL DISTRIBUTION WIDTH 13.4 % (11.5-14.5); WHITE BLOOD COUNT 10.1 10^3/ul (4.8-10.8)
[2016-10-31 07:43] LABS: POTASSIUM 3.9 mmol/L (3.5-5.1)
[2016-10-31 07:44] LABS: CREATININE 0.83 mg/dl (0.44-1.00)
[2016-10-31 07:45] LABS: ALBUMIN/GLOBULIN RATIO 0.83; BILIRUBIN,INDIRECT 0.3 mg/dl (0-1.1); BILIRUBIN,TOTAL 0.3 mg/dl (0.2-1.3); CALCIUM 7.7 mg/dl (8.4-10.2); TOTAL PROTEIN 4.4 g/dl (6.1-8.1)
[2016-10-31] MEDS: ATENOLOL 25 MG TAB PO SCH (09:00)
[2016-10-31] MEDS ORDERED: METOCLOPRAMIDE 10 MG INJ IV PRN (09:00)
[2016-10-31 10:23] LABS: LYMPHOCYTES # 0.3 10^3/ul (0.8-2.9); NEUTROPHIL # 9.8 10^3/ul (1.6-7.5)
--- NOTE | 2016-10-31 13:38 | PN ---
Date/Time of Note Date/Time of Note DATE: 10/31/16 TIME: 13:36 Assessment/Plan VTE Prophylaxis VTE Prophylaxis Intervention: SCD's Lines/Catheters IV [facility]from [facility] PICC Line Central line still needed: Yes Urinary Cath still in place: No Assessment/Plan Chief Complaint/Hosp Course Assessment and plan: - Stage IV endometrial cancer, status post surgical procedure with CYNDI/BSO and recto-sigmoid en-bloc with low anastomosis by Dr. Bueno on 10/11. Path report showed metastatic carcinosarcoma. Started on chemotherapy. Dr. Logan is following in oncology consultation. - Tachycardia, Dr. Oglesby is asked to see patient in cardiology consultation. - Hypertension. Continue hydralazine as needed for systolic blood pressure above 170. - Dyslipidemia. We will resume statins when patient is able to tolerate p.o. - Gastritis. Continue Protonix. Further recommendations based on clinical course. Plan of care discussed with Dr. Richardson. Problems: Subjective 24 Hr Interval Summary Free Text/Dictation Patient's continues to have poor appetite, complains of intermittent nausea, denies any vomiting, denies chest pain. Exam/Review of Systems Vital Signs Vitals Vital Signs Date Time Temp Pulse Resp B/P Pulse Ox O2 Delivery O2 Flow Rate FiO2 10/31/16 12:01 81 10/31/16 11:29 97.5 18 112/57 100 10/31/16 07:42 Nasal Cannula 2.0 Intake and Output 10/30/16 10/30/16 10/31/16 15:00 23:00 07:00 Intake Total 1460 ml 1180 ml Output Total 80 ml 50 ml Balance 1380 ml 1130 ml Exam Constitutional: alert, oriented Psych: no complaints Head: normocephalic Eyes: nl conjunctiva ENMT: nl external ears & nose Neck: non-tender, supple Respiratory: clear to auscultation, normal air movement Cardiovascular: nl pulses, regular rate and rhythm Gastrointestinal: other (Status post surgery, surgical incision is intact with ag and left lower quadrant BJ.), soft Musculoskeletal: nl extremities to inspection Extremities: normal pulses Neurological: SIEBEL SOLUTION ARCHITECT II-XII intact Results Result Diagram: 10/31/16 0628 10/31/16 0628 Results 24 hrs Laboratory Tests Test 10/31/16 06:28 White Blood Count 10.1 # Red Blood Count 3.32 L Hemoglobin 9.4 L Hematocrit 29.3 L Mean Corpuscular Volume 88.3 Mean Corpuscular Hemoglobin 28.3 L Mean Corpuscular Hemoglobin Concent 32.1 Red Cell Distribution Width 13.4 Platelet Count 268 Mean Platelet Volume 10.2 Neutrophils % 97.0 H Lymphocytes % 3.0 L Neutrophils # 9.8 H Lymphocytes # 0.3 L Differential Comment MANUAL DIFF Sodium Level 134 L Potassium Level 3.9 Chloride Level 104 Carbon Dioxide Level 25 Anion Gap 9 Blood Urea Nitrogen 20 Creatinine 0.83 Glucose Level 109 Calcium Level 7.7 L Total Bilirubin 0.3 Direct Bilirubin 0.00 Indirect Bilirubin 0.3 Aspartate Amino Transf (AST/SGOT) 56 H Alanine Aminotransferase (ALT/SGPT) 25 Alkaline Phosphatase 48 Total Protein 4.4 L Albumin 2.0 L Globulin 2.40 Albumin/Globulin Ratio 0.83 Medications Medications Current Medications Potassium Cl/ Dextrose/Lact Ringer's (D5-Lr + KCl 20 Meq) 1,000 ml @ 80 mls/hr [id number] IV Last administered on 10/31/16 05:45; Admin Dose 80 MLS/HR; Start 06/16 at 17:00 Dimethicone (Blistex Lip [place]) 1 applic Q2H PRN TOP CHAPPED LIPS; Start at 09:30 Diphenhydramine HCl (Benadryl) 25 mg Q6H PRN IV ITCHING Last administered on 06:34; Admin Dose 25 MG; Start 10/11/16 at 16:19 Hydralazine HCl 10 mg 10 mg Q4H PRN IV ELEVATED BLOOD PRESSURE; Start 10/15/16 at 10:00 Acetaminophen (Ofirmev 1000mg/ 100ml Iv) 100 ml @ 400 mls/hr Q6H PRN IVPB HEADACHE Last administered on 10/27/16 09:48; Admin Dose 400 MLS/HR; Start at 10:00 IV Flush (NS 10 ml) 10 ml PRN PRN IV FLUSH LINE Last administered on 10/22/16 20:40; Admin Dose 10 ML; Start 10/16/16 at 11:00 Tramadol HCl (Ultram) 50 mg Q6H PRN PO PAIN LEVEL 6-10 Last administered on 10/29 01:56; Admin Dose 50 MG; Start 10/19/16 at 23:00 Hydromorphone HCl (Dilaudid) 0.5 mg Q8 PRN IV PAIN Last administered on 03:04; Admin Dose 0.5 MG; Start 10/23/16 at 06:00 Pantoprazole 40 mg 40 mg DAILY@06 PO Last administered on 10/31/16 05:45; Admin Dose 40 MG; Start 10/25/16 at 06:00 Ondansetron HCl/ Dextrose (Zofran Inj/D5W) 54 ml @ 108 mls/hr Q8H PRN IV NAUSEA AND/OR VOMITING; Start 10/24/16 at 17:30 Prochlorperazine 10 mg 10 mg Q8H PRN IV NAUSEA AND/OR VOMITING Last administered on 10/30/16 23:25; Admin Dose 10 MG; Start 10/24/16 at 17:30 Sodium Chloride (NS) 1,000 ml @ 150 mls/hr Q6H40M PRN IV INFUSE DURING IFOSFAMIDE Last administered on 10/27/16 22:36; Admin Dose 150 MLS/HR; Start at 20:00 Hydrocortisone (Solu-Cortef) 100 mg PRN PRN IV ALLERGIC REACTION; Start at 22:00 Diphenhydramine HCl 50 mg 50 mg PRN PRN IV ALLERGIC REACTION; Start 10/25/16 at 22:00 Ceftriaxone Sodium (Rocephin) 50 ml @ 100 mls/hr Q24H IVPB Last administered on 10/30/16 17:37; Admin Dose 100 MLS/HR; Start 10/25/16 at 17:00 Bisacodyl (Dulcolax) 5 mg DAILY PRN PO CONSTIPATION Last administered on 10:31; Admin Dose 5 MG; Start 10/28/16 at 10:00 Ondansetron HCl (Zofran Inj) 4 mg Q6H PRN IV NAUSEA AND/OR VOMITING Last administered on 10/30/16 18:05; Admin Dose 4 MG; Start 10/29/16 at 09:00 Metoprolol Tartrate (Lopressor) 5 mg Q4H PRN IV HR>110 Hold SBP<100; Start 10/29 at 18:00 Atenolol (Tenormin) 25 mg BID PO Last administered on 10/30/16t 21:04; Admin Dose 25 MG; Start 10/29/16 at 21:00 Metoclopramide HCl (Reglan) 10 mg Q6H PRN IV NAUSEA; Start 10/31/16 at 09:00 ELVIN TEIXEIRA October 31, 2016 13:38
--- NOTE | 2016-10-31 14:08 | CONS ---
Date/Time of Note Date/Time of Note DATE: 10/31/16 TIME: 14:05 Assessment/Plan Assessment/Plan Chief Complaint/Hosp Course The patient is a 56-year-old female with recent diagnosis of endometrial cancer on 09/17/2016 by endometrial biopsy. The patient was diagnosed with stage IV endometrial cancer. She underwent CYNDI/BSO and recto-sigmoid en-bloc with low anastomosis per Dr. Bueno on 10/11/16. She had extensive positive retroperitoneal lymph nodes removed as well. - Path report showed metastatic carcinosarcoma. Ifosfamide/taxol with carbo taxol chemorx recommended: Dr. Bueno, would like to treat with 8 cycles of each regimen. Side effects including N/V, fatigue, myelosuppression, allergic reaction, confusion, hemorrhagic cystitis discussed with the patient. -Patient is now cycle 1 day 6 of ifosfamide/taxol 10/25/16, tolerated fairly well thus far. labs stable and continue supportive care. -Pt remains tachycardic. This may be secondary to the taxol. no signs of chest pain. pt getting hydrated -Ct A/P done yesterday shows no evidence of acute intraabdominal process. 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 currently there are no signs of encephalopathy with ifosfamide. - continue antiemetic support. Zofran 8mg IV q 6 started. will consider given [place]o with next cycle - Avoid benzodiazepines or Ambien while receiving ifosfamide. -continue to monitor counts -cont to monitor HR. may be secondary to the Taxol. appreciate cardiology consult. continue IV hydration in case dehydration is contributing to this -cont ceftriaxone for UTI Problems: Consultation Date/Type/Reason Admit Date/Time Oct 10, 2016 at 09:46 Initial Consult Date 10/12/16 Type of Consultation: Oncology Reason for Consultation metastatic uterine sarcoma Referring Provider: ARLENE CHOWDARY MD 24 HR Interval Summary Free Text/Dictation nausea has improved. tachycardia improved. BJ drained greater than > 200ccc overnight Exam/Review of Systems Vital Signs Vitals Vital Signs Date Time Temp Pulse Resp B/P Pulse Ox O2 Delivery O2 Flow Rate FiO2 10/31/16 12:01 81 10/31/16 11:29 97.5 18 112/57 100 10/31/16 07:42 Nasal Cannula 2.0 Intake and Output 10/30/16 10/30/16 10/31/16 15:00 23:00 07:00 Intake Total 1460 ml 1180 ml Output Total 80 ml 50 ml Balance 1380 ml 1130 ml Exam Constitutional: alert, frail, oriented Psych: no complaints Head: normocephalic Eyes: nl conjunctiva ENMT: nl external ears & nose Neck: non-tender, supple Respiratory: clear to auscultation, normal air movement Cardiovascular: nl pulses, regular rate and rhythm Gastrointestinal: soft Musculoskeletal: nl extremities to inspection, nl gait and stance Results Result Diagram: 10/31/1662710/31/16627 Results 24 hrs Laboratory Tests Test 10/31/16 06:28 White Blood Count 10.1 # Red Blood Count 3.32 L Hemoglobin 9.4 L Hematocrit 29.3 L Mean Corpuscular Volume 88.3 Mean Corpuscular Hemoglobin 28.3 L Mean Corpuscular Hemoglobin Concent 32.1 Red Cell Distribution Width 13.4 Platelet Count 268 Mean Platelet Volume 10.2 Neutrophils % 97.0 H Lymphocytes % 3.0 L Neutrophils # 9.8 H Lymphocytes # 0.3 L Differential Comment MANUAL DIFF Sodium Level 134 L Potassium Level 3.9 Chloride Level 104 Carbon Dioxide Level 25 Anion Gap 9 Blood Urea Nitrogen 20 Creatinine 0.83 Glucose Level 109 Calcium Level 7.7 L Total Bilirubin 0.3 Direct Bilirubin 0.00 Indirect Bilirubin 0.3 Aspartate Amino Transf (AST/SGOT) 56 H Alanine Aminotransferase (ALT/SGPT) 25 Alkaline Phosphatase 48 Total Protein 4.4 L Albumin 2.0 L Globulin 2.40 Albumin/Globulin Ratio 0.83 Medications Medications Current Medications Potassium Cl/ Dextrose/Lact Ringer's (D5-Lr + KCl 20 Meq) 1,000 ml @ 80 mls/hr [id number] IV Last administered on 10/31/16 05:45; Admin Dose 80 MLS/HR; Start 06/16 at 17:00 Dimethicone (Blistex Lip [place]) 1 applic Q2H PRN TOP CHAPPED LIPS; Start at 09:30 Diphenhydramine HCl (Benadryl) 25 mg Q6H PRN IV ITCHING Last administered on 06:34; Admin Dose 25 MG; Start 10/11/16 at 16:19 Hydralazine HCl 10 mg 10 mg Q4H PRN IV ELEVATED BLOOD PRESSURE; Start 10/15/16 at 10:00 Acetaminophen (Ofirmev 1000mg/ 100ml Iv) 100 ml @ 400 mls/hr Q6H PRN IVPB HEADACHE Last administered on 10/27/16 09:48; Admin Dose 400 MLS/HR; Start at 10:00 IV Flush (NS 10 ml) 10 ml PRN PRN IV FLUSH LINE Last administered on 10/22/16 20:40; Admin Dose 10 ML; Start 10/16/16 at 11:00 Tramadol HCl (Ultram) 50 mg Q6H PRN PO PAIN LEVEL 6-10 Last administered on 10/29 01:56; Admin Dose 50 MG; Start 10/19/16 at 23:00 Hydromorphone HCl (Dilaudid) 0.5 mg Q8 PRN IV PAIN Last administered on 03:04; Admin Dose 0.5 MG; Start 10/23/16 at 06:00 Pantoprazole 40 mg 40 mg DAILY@06 PO Last administered on 10/31/16 05:45; Admin Dose 40 MG; Start 10/25/16 at 06:00 Ondansetron HCl/ Dextrose (Zofran Inj/D5W) 54 ml @ 108 mls/hr Q8H PRN IV NAUSEA AND/OR VOMITING; Start 10/24/16 at 17:30 Prochlorperazine 10 mg 10 mg Q8H PRN IV NAUSEA AND/OR VOMITING Last administered on 10/30/16 23:25; Admin Dose 10 MG; Start 10/24/16 at 17:30 Sodium Chloride (NS) 1,000 ml @ 150 mls/hr Q6H40M PRN IV INFUSE DURING IFOSFAMIDE Last administered on 10/27/16 22:36; Admin Dose 150 MLS/HR; Start at 20:00 Hydrocortisone (Solu-Cortef) 100 mg PRN PRN IV ALLERGIC REACTION; Start at 22:00 Diphenhydramine HCl 50 mg 50 mg PRN PRN IV ALLERGIC REACTION; Start 10/25/16 at 22:00 Ceftriaxone Sodium (Rocephin) 50 ml @ 100 mls/hr Q24H IVPB Last administered on 10/30/16 17:37; Admin Dose 100 MLS/HR; Start 10/25/16 at 17:00 Bisacodyl (Dulcolax) 5 mg DAILY PRN PO CONSTIPATION Last administered on 10:31; Admin Dose 5 MG; Start 10/28/16 at 10:00 Ondansetron HCl (Zofran Inj) 4 mg Q6H PRN IV NAUSEA AND/OR VOMITING Last administered on 10/30/16 18:05; Admin Dose 4 MG; Start 10/29/16 at 09:00 Metoprolol Tartrate (Lopressor) 5 mg Q4H PRN IV HR>110 Hold SBP<100; Start 10/29 at 18:00 Atenolol (Tenormin) 25 mg BID PO Last administered on 10/30/16 21:04; Admin Dose 25 MG; Start 10/29/16 at 21:00 Metoclopramide HCl (Reglan) 10 mg Q6H PRN IV NAUSEA; Start 10/31/16 at 09:00 RUSS HINES M.D. October 31, 2016 14:08
[2016-10-31] MEDS: CEFTRIAXONE 1 GM/50 ML (PMX) 50 ML IVPB SCH (17:04)
--- NOTE | 2016-10-31 18:08 | CONS ---
Date/Time of Note Date/Time of Note DATE: 10/31/16 TIME: 18:01 Assessment/Plan Assessment/Plan Chief Complaint/Hosp Course IMPRESSION: 1. Tachyarrhythmia, most consistent with sinus tachycardia-now improved 2. History of hypertension with stable blood pressures at this time. 3. Abnormal electrocardiogram with right axis deviation and nonspecific ST-T abnormalities, assess for acute coronary syndrome. 4. History of dyslipidemia. 5. Endometrial cancer status post 1 cycle of chemotherapy with Taxol and ifosfamide. 6. Leukocytosis, severe, assess for infection. 7. Hyponatremia-slowly improving 8. Anemia. 9.Nausea Recc: -Tele -serial ecg's -consider decreae in IVF given LE edema -Atenolol as tolerated -Follow HR/BP closely -Continue abx's and f/u cx data Problems: Consultation Date/Type/Reason Admit Date/Time Oct 10, 2016 at 09:46 Initial Consult Date 10/12/16 Type of Consultation: Cardiology Reason for Consultation tachycardia Referring Provider: ARLENE CHOWDARY MD Exam/Review of Systems Vital Signs Vitals Vital Signs Date Time Temp Pulse Resp B/P Pulse Ox O2 Delivery O2 Flow Rate FiO2 10/31/16 16:21 81 10/31/16 16:06 98.2 16 113/58 100 10/31/16 07:42 Nasal Cannula 2.0 Intake and Output 10/30/16 10/30/16 10/31/16 15:00 23:00 07:00 Intake Total 1460 ml 1180 ml Output Total 80 ml 50 ml Balance 1380 ml 1130 ml Exam Review of Systems: CONSTITUTIONAL: No fevers, chills. PULMONARY: No sob CARDIOVASCULAR: No chest pain/palpitations GASTROINTESTINAL: positive nausea GENITOURINARY: No hematuria/dysuria. MUSCULOSKELETAL: No myagias/arthalgias. PSYCHIATRIC: The patient denies depression. NEUROLOGIC: mild generalized weakness Constitutional: alert, oriented Psych: no complaints Head: normocephalic ENMT: mucosa pink and moist Neck: jvd (8-9 cm water), supple Respiratory: clear to auscultation Cardiovascular: regular rate and rhythm Gastrointestinal: non-tender, soft Extremities: pitting pedal edema (trace/B) Neurological: other (No focal deficits) Results Result Diagram: 5/3/17 0628 5/3/17 0628 Results 24 hrs Laboratory Tests Test 10/31/16 06:28 White Blood Count 10.1 # Red Blood Count 3.32 L Hemoglobin 9.4 L Hematocrit 29.3 L Mean Corpuscular Volume 88.3 Mean Corpuscular Hemoglobin 28.3 L Mean Corpuscular Hemoglobin Concent 32.1 Red Cell Distribution Width 13.4 Platelet Count 268 Mean Platelet Volume 10.2 Neutrophils % 97.0 H Lymphocytes % 3.0 L Neutrophils # 9.8 H Lymphocytes # 0.3 L Differential Comment MANUAL DIFF Sodium Level 134 L Potassium Level 3.9 Chloride Level 104 Carbon Dioxide Level 25 Anion Gap 9 Blood Urea Nitrogen 20 Creatinine 0.83 Glucose Level 109 Calcium Level 7.7 L Total Bilirubin 0.3 Direct Bilirubin 0.00 Indirect Bilirubin 0.3 Aspartate Amino Transf (AST/SGOT) 56 H Alanine Aminotransferase (ALT/SGPT) 25 Alkaline Phosphatase 48 Total Protein 4.4 L Albumin 2.0 L Globulin 2.40 Albumin/Globulin Ratio 0.83 Medications Medications Current Medications Potassium Cl/ Dextrose/Lact Ringer's (D5-Lr + KCl 20 Meq) 1,000 ml @ 80 mls/hr [id number] IV Last administered on 10/31/16 05:45; Admin Dose 80 MLS/HR; Start 06/16 at 17:00 Dimethicone (Blistex Lip [place]) 1 applic Q2H PRN TOP CHAPPED LIPS; Start at 09:30 Diphenhydramine HCl (Benadryl) 25 mg Q6H PRN IV ITCHING Last administered on 06:34; Admin Dose 25 MG; Start 10/11/16 at 16:19 Hydralazine HCl 10 mg 10 mg Q4H PRN IV ELEVATED BLOOD PRESSURE; Start 10/15/16 at 10:00 Acetaminophen (Ofirmev 1000mg/ 100ml Iv) 100 ml @ 400 mls/hr Q6H PRN IVPB HEADACHE Last administered on 10/27/16 09:48; Admin Dose 400 MLS/HR; Start at 10:00 IV Flush (NS 10 ml) 10 ml PRN PRN IV FLUSH LINE Last administered on 10/22/16 20:40; Admin Dose 10 ML; Start 10/16/16 at 11:00 Tramadol HCl (Ultram) 50 mg Q6H PRN PO PAIN LEVEL 6-10 Last administered on 10/29 01:56; Admin Dose 50 MG; Start 10/19/16 at 23:00 Hydromorphone HCl (Dilaudid) 0.5 mg Q8 PRN IV PAIN Last administered on 03:04; Admin Dose 0.5 MG; Start 10/23/16 at 06:00 Pantoprazole 40 mg 40 mg DAILY@06 PO Last administered on 10/31/16 05:45; Admin Dose 40 MG; Start 10/25/16 at 06:00 Ondansetron HCl/ Dextrose (Zofran Inj/D5W) 54 ml @ 108 mls/hr Q8H PRN IV NAUSEA AND/OR VOMITING; Start 10/24/16 at 17:30 Prochlorperazine 10 mg 10 mg Q8H PRN IV NAUSEA AND/OR VOMITING Last administered on 10/30/16 23:25; Admin Dose 10 MG; Start 10/24/16 at 17:30 Sodium Chloride (NS) 1,000 ml @ 150 mls/hr Q6H40M PRN IV INFUSE DURING IFOSFAMIDE Last administered on 10/27/16 22:36; Admin Dose 150 MLS/HR; Start at 20:00 Hydrocortisone (Solu-Cortef) 100 mg PRN PRN IV ALLERGIC REACTION; Start at 22:00 Diphenhydramine HCl 50 mg 50 mg PRN PRN IV ALLERGIC REACTION; Start 10/25/16 at 22:00 Ceftriaxone Sodium (Rocephin) 50 ml @ 100 mls/hr Q24H IVPB Last administered on 10/31/16 17:04; Admin Dose 100 MLS/HR; Start 10/25/16 at 17:00 Bisacodyl (Dulcolax) 5 mg DAILY PRN PO CONSTIPATION Last administered on 10:31; Admin Dose 5 MG; Start 10/28/16 at 10:00 Ondansetron HCl (Zofran Inj) 4 mg Q6H PRN IV NAUSEA AND/OR VOMITING Last administered on 10/30/16 18:05; Admin Dose 4 MG; Start 10/29/16 at 09:00 Metoprolol Tartrate (Lopressor) 5 mg Q4H PRN IV HR>110 Hold SBP<100; Start 10/29 at 18:00 Atenolol (Tenormin) 25 mg BID PO Last administered on 10/30/16t 21:04; Admin Dose 25 MG; Start 10/29/16 at 21:00 Metoclopramide HCl (Reglan) 10 mg Q6H PRN IV NAUSEA; Start 10/31/16 at 09:00 BALDEMAR RIVERA October 31, 2016 18:08
[2016-11-01] VITALS (13 sets, daily range): BP systolic 101–127; BP diastolic 55–70; PULSE 87–115; RESP 16–20
[2016-11-01] MEDS: PANTOPRAZOLE (EC) 40 MG TAB PO SCH (05:37)
[2016-11-01 07:21] LABS: ADD SCAN DIFF NO
[2016-11-01 07:38] LABS: ABNORMAL IP MESSAGE 1; HEMATOCRIT 29.1 % (37.0-47.0); HEMOGLOBIN 9.2 g/dl (12.0-16.0); MEAN CORPUSCULAR HEMOGLOBIN 27.9 pg (29.0-33.0); MEAN CORPUSCULAR HGB CONC 31.6 g/dl (32.0-37.0); MEAN CORPUSCULAR VOLUME 88.2 fl (82.0-101.0); MEAN PLATELET VOLUME 9.5 fl (7.4-10.4); PLATELET COUNT 265 10^3/UL (140-415); RED CELL DISTRIBUTION WIDTH 13.1 % (11.5-14.5); WHITE BLOOD COUNT 2.2 10^3/ul (4.8-10.8)
[2016-11-01 07:58] LABS: ALBUMIN 2.1 g/dl (3.3-4.9)
[2016-11-01 07:59] LABS: POTASSIUM 3.9 mmol/L (3.5-5.1)
[2016-11-01 08:01] LABS: ALBUMIN/GLOBULIN RATIO 0.91; BILIRUBIN,INDIRECT 0.3 mg/dl (0-1.1); BILIRUBIN,TOTAL 0.3 mg/dl (0.2-1.3); CREATININE 0.79 mg/dl (0.44-1.00); TOTAL PROTEIN 4.4 g/dl (6.1-8.1)
[2016-11-01 08:02] LABS: CALCIUM 7.8 mg/dl (8.4-10.2)
[2016-11-01] MEDS: D5-LR + KCL 20 MEQ 1,000 ML IV SCH ×2 (08:35→21:29)
[2016-11-01] MEDS: ATENOLOL 25 MG TAB PO SCH (09:00)
[2016-11-01 10:43] LABS: EOSINOPHILS # 0.1 10^3/ul (0.0-0.5); LYMPHOCYTES # 0.4 10^3/ul (0.8-2.9); NEUTROPHIL # 1.6 10^3/ul (1.6-7.5)
--- NOTE | 2016-11-01 13:29 | CONS ---
Date/Time of Note Date/Time of Note DATE: 11/01/16 TIME: 13:26 Assessment/Plan Assessment/Plan Chief Complaint/Hosp Course IMPRESSION: 1. Tachyarrhythmia, most consistent with sinus tachycardia-overall improved with HR in high 90's to low 100 2. History of hypertension with stable blood pressures at this time. 3. Abnormal electrocardiogram with right axis deviation and nonspecific ST-T abnormalities, assess for acute coronary syndrome. 4. History of dyslipidemia. 5. Endometrial cancer status post 1 cycle of chemotherapy with Taxol and ifosfamide. 6. Leukocytosis, severe, assess for infection. 7. Hyponatremia-ongoing 8. Anemia. 9.Nausea Recc: -Tele -serial ecg's -consider decrease in IVF rate given LE edema -Atenolol as tolerated -Follow HR/BP closely -Continue abx's and f/u cx data Problems: Consultation Date/Type/Reason Admit Date/Time Oct 10, 2016 at 09:46 Initial Consult Date 10/12/16 Type of Consultation: Cardiology Reason for Consultation tachycardia Referring Provider: ARLENE CHOWDARY MD Exam/Review of Systems Vital Signs Vitals Vital Signs Date Time Temp Pulse Resp B/P Pulse Ox O2 Delivery O2 Flow Rate FiO2 11/01/16 12:03 87 11/01/16 11:14 98.2 18 106/58 100 10/31/16 07:42 Nasal Cannula 2.0 Intake and Output 10/31/16 10/31/16 11/01/16 15:00 23:00 07:00 Intake Total 600 ml 1280 ml Output Total 250 ml 720 ml Balance 350 ml 560 ml Exam Review of Systems: CONSTITUTIONAL: No fevers, chills. PULMONARY: No sob CARDIOVASCULAR: No chest pain/palpitations GASTROINTESTINAL: No nausea/vomiting. GENITOURINARY: No hematuria/dysuria. MUSCULOSKELETAL: No myagias/arthalgias. PSYCHIATRIC: The patient denies depression. NEUROLOGIC: No weakness Constitutional: alert, oriented Psych: no complaints Head: normocephalic ENMT: mucosa pink and moist Neck: supple Respiratory: clear to auscultation Cardiovascular: regular rate and rhythm Gastrointestinal: non-tender, soft Musculoskeletal: muscle tone (normal) Extremities: edema (none) Neurological: other (No focal deficits) Results Result Diagram: 11/01/1655 11/01/16 0655 Results 24 hrs Laboratory Tests Test 11/01/16 06:55 11/01/16 12:05 White Blood Count 2.2 #L Red Blood Count 3.30 L Hemoglobin 9.2 L Hematocrit 29.1 L Mean Corpuscular Volume 88.2 Mean Corpuscular Hemoglobin 27.9 L Mean Corpuscular Hemoglobin Concent 31.6 L Red Cell Distribution Width 13.1 Platelet Count 265 Mean Platelet Volume 9.5 Neutrophils % 73.0 Band Neutrophils % 8.0 H Lymphocytes % 16.0 Monocytes % Eosinophils % 3.0 Nucleated Red Blood Cells % 1.0 H Neutrophils # 1.6 Lymphocytes # 0.4 L Monocytes # Eosinophils # 0.1 Sodium Level 133 L Potassium Level 3.9 Chloride Level 104 Carbon Dioxide Level 26 Anion Gap 7 L Blood Urea Nitrogen 16 Creatinine 0.79 Glucose Level 102 Calcium Level 7.8 L Total Bilirubin 0.3 Direct Bilirubin 0.00 Indirect Bilirubin 0.3 Aspartate Amino Transf (AST/SGOT) 80 H Alanine Aminotransferase (ALT/SGPT) 38 Alkaline Phosphatase 55 Total Protein 4.4 L Albumin 2.1 L Globulin 2.30 Albumin/Globulin Ratio 0.91 Lab Scanned Report REFERENCE LAB Medications Medications Current Medications Potassium Cl/ Dextrose/Lact Ringer's (D5-Lr + KCl 20 Meq) 1,000 ml @ 80 mls/hr [id number] IV Last administered on 11/01/16 08:35; Admin Dose 80 MLS/HR; Start 06/16 at 17:00 Dimethicone (Blistex Lip [place]) 1 applic Q2H PRN TOP CHAPPED LIPS; Start at 09:30 Diphenhydramine HCl (Benadryl) 25 mg Q6H PRN IV ITCHING Last administered on 06:34; Admin Dose 25 MG; Start 10/11/16 at 16:19 Hydralazine HCl 10 mg 10 mg Q4H PRN IV ELEVATED BLOOD PRESSURE; Start 10/15/16 at 10:00 Acetaminophen (Ofirmev 1000mg/ 100ml Iv) 100 ml @ 400 mls/hr Q6H PRN IVPB HEADACHE Last administered on 10/27/16 09:48; Admin Dose 400 MLS/HR; Start at 10:00 IV Flush (NS 10 ml) 10 ml PRN PRN IV FLUSH LINE Last administered on 10/22/16 20:40; Admin Dose 10 ML; Start 10/16/16 at 11:00 Tramadol HCl (Ultram) 50 mg Q6H PRN PO PAIN LEVEL 6-10 Last administered on 10/29 01:56; Admin Dose 50 MG; Start 10/19/16 at 23:00 Hydromorphone HCl (Dilaudid) 0.5 mg Q8 PRN IV PAIN Last administered on 03:04; Admin Dose 0.5 MG; Start 10/23/16 at 06:00 Pantoprazole 40 mg 40 mg DAILY@06 PO Last administered on 11/01/16 05:37; Admin Dose 40 MG; Start 10/25/16 at 06:00 Ondansetron HCl/ Dextrose (Zofran Inj/D5W) 54 ml @ 108 mls/hr Q8H PRN IV NAUSEA AND/OR VOMITING; Start 10/24/16 at 17:30 Prochlorperazine 10 mg 10 mg Q8H PRN IV NAUSEA AND/OR VOMITING Last administered on 10/30/16 23:25; Admin Dose 10 MG; Start 10/24/16 at 17:30 Sodium Chloride (NS) 1,000 ml @ 150 mls/hr Q6H40M PRN IV INFUSE DURING IFOSFAMIDE Last administered on 10/27/16 22:36; Admin Dose 150 MLS/HR; Start at 20:00 Hydrocortisone (Solu-Cortef) 100 mg PRN PRN IV ALLERGIC REACTION; Start at 22:00 Diphenhydramine HCl 50 mg 50 mg PRN PRN IV ALLERGIC REACTION; Start 10/25/16 at 22:00 Ceftriaxone Sodium (Rocephin) 50 ml @ 100 mls/hr Q24H IVPB Last administered on 10/31/16 17:04; Admin Dose 100 MLS/HR; Start 10/25/16 at 17:00 Bisacodyl (Dulcolax) 5 mg DAILY PRN PO CONSTIPATION Last administered on 10:31; Admin Dose 5 MG; Start 10/28/16 at 10:00 Ondansetron HCl (Zofran Inj) 4 mg Q6H PRN IV NAUSEA AND/OR VOMITING Last administered on 10/30/16t 18:05; Admin Dose 4 MG; Start 10/29/16 at 09:00 Metoprolol Tartrate (Lopressor) 5 mg Q4H PRN IV HR>110 Hold SBP<100; Start 10/29 at 18:00 Metoclopramide HCl (Reglan) 10 mg Q6H PRN IV NAUSEA; Start 10/31/16 at 09:00 Atenolol (Tenormin) 25 mg DAILY PO ; Start 11/01/16 at 09:00 BALDEMAR RIVERA November 01, 2016 13:29
--- NOTE | 2016-11-01 14:02 | PN ---
Date/Time of Note Date/Time of Note DATE: 11/01/16 TIME: 14:02 Assessment/Plan VTE Prophylaxis VTE Prophylaxis Intervention: SCD's Lines/Catheters IV C[facility]ter Type (from [facility]): PICC Line Central line still needed: Yes Urinary Cath still in place: No Assessment/Plan Chief Complaint/Hosp Course Assessment and plan: - Stage IV endometrial cancer, status post surgical procedure with CYNDI/BSO and recto-sigmoid en-bloc with low anastomosis by Dr. Bueno on 10/11. Path report showed metastatic carcinosarcoma. Started on chemotherapy. Dr. Logan is following in oncology consultation. - Tachycardia, Dr. Oglesby is asked to see patient in cardiology consultation. - Hypertension. Continue hydralazine as needed for systolic blood pressure above 170. - Dyslipidemia. We will resume statins when patient is able to tolerate p.o. - Gastritis. Continue Protonix. Further recommendations based on clinical course. Plan of care discussed with Dr. Richardson. Problems: Exam/Review of Systems Vital Signs Vitals Vital Signs Date Time Temp Pulse Resp B/P Pulse Ox O2 Delivery O2 Flow Rate FiO2 11/01/16 12:03 87 11/01/16 11:14 98.2 18 106/58 100 10/31/16 07:42 Nasal Cannula 2.0 Intake and Output 10/31/16 10/31/16 11/01/16 15:00 23:00 07:00 Intake Total 600 ml 1280 ml Output Total 250 ml 720 ml Balance 350 ml 560 ml Exam Constitutional: alert, oriented Psych: no complaints Head: normocephalic Eyes: nl conjunctiva ENMT: nl external ears & nose Neck: non-tender, supple Respiratory: clear to auscultation, normal air movement Cardiovascular: nl pulses, regular rate and rhythm Gastrointestinal: other (Status post surgery, surgical incision is intact with ag and left lower quadrant BJ.), soft Musculoskeletal: nl extremities to inspection Extremities: normal pulses Neurological: [employer] A[employer]ST II-XII intact Results Result Diagram: 11/01/16 0655 11/01/16 0655 Results 24 hrs Laboratory Tests Test 11/01/16 06:55 11/01/16 12:05 White Blood Count 2.2 #L Red Blood Count 3.30 L Hemoglobin 9.2 L Hematocrit 29.1 L Mean Corpuscular Volume 88.2 Mean Corpuscular Hemoglobin 27.9 L Mean Corpuscular Hemoglobin Concent 31.6 L Red Cell Distribution Width 13.1 Platelet Count 265 Mean Platelet Volume 9.5 Neutrophils % 73.0 Band Neutrophils % 8.0 H Lymphocytes % 16.0 Monocytes % Eosinophils % 3.0 Nucleated Red Blood Cells % 1.0 H Neutrophils # 1.6 Lymphocytes # 0.4 L Monocytes # Eosinophils # 0.1 Sodium Level 133 L Potassium Level 3.9 Chloride Level 104 Carbon Dioxide Level 26 Anion Gap 7 L Blood Urea Nitrogen 16 Creatinine 0.79 Glucose Level 102 Calcium Level 7.8 L Total Bilirubin 0.3 Direct Bilirubin 0.00 Indirect Bilirubin 0.3 Aspartate Amino Transf (AST/SGOT) 80 H Alanine Aminotransferase (ALT/SGPT) 38 Alkaline Phosphatase 55 Total Protein 4.4 L Albumin 2.1 L Globulin 2.30 Albumin/Globulin Ratio 0.91 Lab Scanned Report REFERENCE LAB Medications Medications Current Medications Potassium Cl/ Dextrose/Lact Ringer's (D5-Lr + KCl 20 Meq) 1,000 ml @ 80 mls/hr [id number] IV Last administered on 11/01/16 08:35; Admin Dose 80 MLS/HR; Start 06/16 at 17:00 Dimethicone (Blistex Lip [place]) 1 applic Q2H PRN TOP CHAPPED LIPS; Start at 09:30 Diphenhydramine HCl (Benadryl) 25 mg Q6H PRN IV ITCHING Last administered on 06:34; Admin Dose 25 MG; Start 10/11/16 at 16:19 Hydralazine HCl 10 mg 10 mg Q4H PRN IV ELEVATED BLOOD PRESSURE; Start 10/15/16 at 10:00 Acetaminophen (Ofirmev 1000mg/ 100ml Iv) 100 ml @ 400 mls/hr Q6H PRN IVPB HEADACHE Last administered on 10/27/16 09:48; Admin Dose 400 MLS/HR; Start at 10:00 IV Flush (NS 10 ml) 10 ml PRN PRN IV FLUSH LINE Last administered on 10/22/16 20:40; Admin Dose 10 ML; Start 10/16/16 at 11:00 Tramadol HCl (Ultram) 50 mg Q6H PRN PO PAIN LEVEL 6-10 Last administered on 10/29 01:56; Admin Dose 50 MG; Start 10/19/16 at 23:00 Hydromorphone HCl (Dilaudid) 0.5 mg Q8 PRN IV PAIN Last administered on 03:04; Admin Dose 0.5 MG; Start 10/23/16 at 06:00 Pantoprazole 40 mg 40 mg DAILY@06 PO Last administered on 11/01/16 05:37; Admin Dose 40 MG; Start 10/25/16 at 06:00 Ondansetron HCl/ Dextrose (Zofran Inj/D5W) 54 ml @ 108 mls/hr Q8H PRN IV NAUSEA AND/OR VOMITING; Start 10/24/16 at 17:30 Prochlorperazine 10 mg 10 mg Q8H PRN IV NAUSEA AND/OR VOMITING Last administered on 10/30/16 23:25; Admin Dose 10 MG; Start 10/24/16 at 17:30 Sodium Chloride (NS) 1,000 ml @ 150 mls/hr Q6H40M PRN IV INFUSE DURING IFOSFAMIDE Last administered on 10/27/16 22:36; Admin Dose 150 MLS/HR; Start at 20:00 Hydrocortisone (Solu-Cortef) 100 mg PRN PRN IV ALLERGIC REACTION; Start at 22:00 Diphenhydramine HCl 50 mg 50 mg PRN PRN IV ALLERGIC REACTION; Start 10/25/16 at 22:00 Ceftriaxone Sodium (Rocephin) 50 ml @ 100 mls/hr Q24H IVPB Last administered on 10/31/16 17:04; Admin Dose 100 MLS/HR; Start 10/25/16 at 17:00 Bisacodyl (Dulcolax) 5 mg DAILY PRN PO CONSTIPATION Last administered on 10:31; Admin Dose 5 MG; Start 10/28/16 at 10:00 Ondansetron HCl (Zofran Inj) 4 mg Q6H PRN IV NAUSEA AND/OR VOMITING Last administered on 10/30/16 18:05; Admin Dose 4 MG; Start 10/29/16 at 09:00 Metoprolol Tartrate (Lopressor) 5 mg Q4H PRN IV HR>110 Hold SBP<100; Start 10/29 at 18:00 Metoclopramide HCl (Reglan) 10 mg Q6H PRN IV NAUSEA; Start 10/31/16 at 09:00 Atenolol (Tenormin) 25 mg DAILY PO ; Start 11/01/16 at 09:00 ELVIN TEIXEIRA November 01, 2016 14:02
[2016-11-01] MEDS: CEFTRIAXONE 1 GM/50 ML (PMX) 50 ML IVPB SCH (17:24)
--- NOTE | 2016-11-01 17:38 | CONS ---
Date/Time of Note Date/Time of Note DATE: 11/01/16 TIME: 17:34 Assessment/Plan Assessment/Plan Chief Complaint/Hosp Course The patient is a 56-year-old female with recent diagnosis of endometrial cancer on 09/17/2016 by endometrial biopsy. The patient was diagnosed with stage IV endometrial cancer. She underwent CYNDI/BSO and recto-sigmoid en-bloc with low anastomosis per Dr. Bueno on 10/11/16. She had extensive positive retroperitoneal lymph nodes removed but the confluence of disease makes her classified as millimeter residual disease. - Path report showed metastatic carcinosarcoma. Per Dr. Kitchen of pathology, tumor is poorly differentiated though mostly sarcoma (90%) in the metastases. Ifosfamide/taxol with carbo taxol chemorx recommended: Dr. Bueno, would like to treat with 8 cycles of each regimen. Side effects including N/V, fatigue, myelosuppression, allergic reaction, confusion, hemorrhagic cystitis discussed with the patient. -Patient is now cycle 1 day 8 of ifosfamide/taxol 10/25/16, tolerated fairly well thus far. labs stable and continue supportive care. -Pt remains tachycardic. This may be secondary to the taxol. Pt getting hydrated , Cardiology on board -Ct A/P done 10/29/16 shows no evidence of acute intraabdominal process. known metastatic disease was seen. Prior CT A/P with and without contrast 10/02/16 demonstrated metastatic spread with bilateral right greater than left adnexal lesions, with areas of infiltration and nodularity within the right paracolic gutter and transverse mesocolon. Recs - continue to monitor for [employer] symptoms. Currently there are no signs of encephalopathy with ifosfamide. - continue antiemetic support. Zofran 8mg IV q 6 started. Will consider given [place]o with next cycle - Avoid benzodiazepines or Ambien while receiving ifosfamide. - continue to monitor counts - cont to monitor HR. May be secondary to the Taxol. appreciate cardiology consult. Continue IV hydration in case dehydration is contributing to this - cont ceftriaxone for UTI - monitor ANC, today 1.6, may need to restart neupogen if drops further Patient will need to be re-admitted in 3 weeks for cycle 2 ifosfamide/taxol Chemo regimen (started 4/27/17) Ifosfamide 1600 mg/mg2 IV once per week D1-3 Paclitaxel 135 mg/m2 IV over 3 hours D1 [place] 2000 mg IV over 12 hours once per day (15 minutes before ifosfamide) D1-3 Decadron 20 mg PO 12 hours and 6 hours prior to paclitaxel Neupogen 480 mcg subcutaneous once per day starting D4 until ANC > 2000 Problems: Consultation Date/Type/Reason Admit Date/Time Oct 10, 2016 at 09:46 Initial Consult Date 10/12/16 Type of Consultation: Oncology Referring Provider: ARLENE CHOWDARY MD 24 HR Interval Summary Free Text/Dictation Patient states that she had N/V previously as well this a.m. but overall much better. Exam/Review of Systems Vital Signs Vitals Vital Signs Date Time Temp Pulse Resp B/P Pulse Ox O2 Delivery O2 Flow Rate FiO2 11/01/16 16:09 115 11/01/16 15:20 98.5 18 110/60 97 10/31/16 07:42 Nasal Cannula 2.0 Intake and Output 10/31/16 10/31/16 11/01/16 14:59 22:59 06:59 Intake Total 600 ml 1280 ml Output Total 250 ml 620 ml Balance 350 ml 660 ml Exam Constitutional: alert, frail, oriented Psych: no complaints Head: normocephalic Eyes: nl conjunctiva ENMT: nl external ears & nose Neck: non-tender, supple Respiratory: clear to auscultation, normal air movement Cardiovascular: nl pulses, tachycardic Gastrointestinal: soft Musculoskeletal: nl extremities to inspection, nl gait and stance Results Result Diagram: 11/01/16 0655 11/01/16 0655 Results 24 hrs Laboratory Tests Test 11/01/16 06:55 11/01/16 12:05 White Blood Count 2.2 #L Red Blood Count 3.30 L Hemoglobin 9.2 L Hematocrit 29.1 L Mean Corpuscular Volume 88.2 Mean Corpuscular Hemoglobin 27.9 L Mean Corpuscular Hemoglobin Concent 31.6 L Red Cell Distribution Width 13.1 Platelet Count 265 Mean Platelet Volume 9.5 Neutrophils % 73.0 Band Neutrophils % 8.0 H Lymphocytes % 16.0 Monocytes % Eosinophils % 3.0 Nucleated Red Blood Cells % 1.0 H Neutrophils # 1.6 Lymphocytes # 0.4 L Monocytes # Eosinophils # 0.1 Sodium Level 133 L Potassium Level 3.9 Chloride Level 104 Carbon Dioxide Level 26 Anion Gap 7 L Blood Urea Nitrogen 16 Creatinine 0.79 Glucose Level 102 Calcium Level 7.8 L Total Bilirubin 0.3 Direct Bilirubin 0.00 Indirect Bilirubin 0.3 Aspartate Amino Transf (AST/SGOT) 80 H Alanine Aminotransferase (ALT/SGPT) 38 Alkaline Phosphatase 55 Total Protein 4.4 L Albumin 2.1 L Globulin 2.30 Albumin/Globulin Ratio 0.91 Lab Scanned Report REFERENCE LAB Medications Medications Current Medications Potassium Cl/ Dextrose/Lact Ringer's (D5-Lr + KCl 20 Meq) 1,000 ml @ 30 mls/hr Q24H IV Last administered on 11/01/16 08:35; Admin Dose 80 MLS/HR; Start at 17:00 Dimethicone (Blistex Lip [place]) 1 applic Q2H PRN TOP CHAPPED LIPS; Start at 09:30 Diphenhydramine HCl (Benadryl) 25 mg Q6H PRN IV ITCHING Last administered on 06:34; Admin Dose 25 MG; Start 10/11/16 at 16:19 Hydralazine HCl 10 mg 10 mg Q4H PRN IV ELEVATED BLOOD PRESSURE; Start 10/15/16 at 10:00 Acetaminophen (Ofirmev 1000mg/ 100ml Iv) 100 ml @ 400 mls/hr Q6H PRN IVPB HEADACHE Last administered on 10/27/16 09:48; Admin Dose 400 MLS/HR; Start at 10:00 IV Flush (NS 10 ml) 10 ml PRN PRN IV FLUSH LINE Last administered on 10/22/16 20:40; Admin Dose 10 ML; Start 10/16/16 at 11:00 Tramadol HCl (Ultram) 50 mg Q6H PRN PO PAIN LEVEL 6-10 Last administered on 10/29 01:56; Admin Dose 50 MG; Start 10/19/16 at 23:00 Hydromorphone HCl (Dilaudid) 0.5 mg Q8 PRN IV PAIN Last administered on 03:04; Admin Dose 0.5 MG; Start 10/23/16 at 06:00 Pantoprazole 40 mg 40 mg DAILY@06 PO Last administered on 11/01/16 05:37; Admin Dose 40 MG; Start 10/25/16 at 06:00 Ondansetron HCl/ Dextrose (Zofran Inj/D5W) 54 ml @ 108 mls/hr Q8H PRN IV NAUSEA AND/OR VOMITING; Start 10/24/16 at 17:30 Prochlorperazine (Compazine Inj) 10 mg Q8H PRN IV NAUSEA AND/OR VOMITING Last administered on 10/30/16 23:25; Admin Dose 10 MG; Start 10/24/16 at 17:30 Hydrocortisone (Solu-Cortef) 100 mg PRN PRN IV ALLERGIC REACTION; Start at 22:00 Diphenhydramine HCl 50 mg 50 mg PRN PRN IV ALLERGIC REACTION; Start 10/25/16 at 22:00 Ceftriaxone Sodium (Rocephin) 50 ml @ 100 mls/hr Q24H IVPB Last administered on 11/01/16 17:24; Admin Dose 100 MLS/HR; Start 10/25/16 at 17:00 Bisacodyl (Dulcolax) 5 mg DAILY PRN PO CONSTIPATION Last administered on 10:31; Admin Dose 5 MG; Start 10/28/16 at 10:00 Ondansetron HCl (Zofran Inj) 4 mg Q6H PRN IV NAUSEA AND/OR VOMITING Last administered on 10/30/16 18:05; Admin Dose 4 MG; Start 10/29/16 at 09:00 Metoprolol Tartrate (Lopressor) 5 mg Q4H PRN IV HR>110 Hold SBP<100; Start 10/29 at 18:00 Metoclopramide HCl (Reglan) 10 mg Q6H PRN IV NAUSEA; Start 10/31/16 at 09:00 Atenolol (Tenormin) 25 mg DAILY PO ; Start 11/01/16 at 09:00 LINDA SWANSON MD November 01, 2016 17:38
--- NOTE | 2016-11-01 21:37 | PN ---
Date/Time of Note Date/Time of Note DATE: 11/01/16 TIME: 21:32 Assessment/Plan VTE Prophylaxis VTE Prophylaxis Intervention: SCD's Lines/Catheters IV Catheter Type (from Nrs): PICC Line Central line still needed: Yes Urinary Cath still in place: No Assessment/Plan Chief Complaint/Hosp Course stage IV endometrial cancer Problems: Assessment/Plan A- doing well P- per IM, Med onc. Anticipate d/c if home nursing available 1-2d Subjective 24 Hr Interval Summary Free Text/Dictation feels better and eat better. Exam/Review of Systems Vital Signs Vitals Vital Signs Date Time Temp Pulse Resp B/P Pulse Ox O2 Delivery O2 Flow Rate FiO2 11/01/16 20:12 99 11/01/16 19:56 98.2 20 118/68 99 10/31/16 07:42 Nasal Cannula 2.0 Intake and Output 10/31/16 10/31/16 11/01/16 15:00 23:00 07:00 Intake Total 600 ml 1280 ml Output Total 250 ml 720 ml Balance 350 ml 560 ml Exam Cardiovascular: nl pulses, regular rate and rhythm Gastrointestinal: soft Musculoskeletal: nl extremities to inspection Extremities: normal pulses Results Result Diagram: 11/01/16 0655 11/01/16 0655 Results 24 hrs Laboratory Tests Test 11/01/16 06:55 11/01/16 12:05 White Blood Count 2.2 #L Red Blood Count 3.30 L Hemoglobin 9.2 L Hematocrit 29.1 L Mean Corpuscular Volume 88.2 Mean Corpuscular Hemoglobin 27.9 L Mean Corpuscular Hemoglobin Concent 31.6 L Red Cell Distribution Width 13.1 Platelet Count 265 Mean Platelet Volume 9.5 Neutrophils % 73.0 Band Neutrophils % 8.0 H Lymphocytes % 16.0 Monocytes % Eosinophils % 3.0 Nucleated Red Blood Cells % 1.0 H Neutrophils # 1.6 Lymphocytes # 0.4 L Monocytes # Eosinophils # 0.1 Sodium Level 133 L Potassium Level 3.9 Chloride Level 104 Carbon Dioxide Level 26 Anion Gap 7 L Blood Urea Nitrogen 16 Creatinine 0.79 Glucose Level 102 Calcium Level 7.8 L Total Bilirubin 0.3 Direct Bilirubin 0.00 Indirect Bilirubin 0.3 Aspartate Amino Transf (AST/SGOT) 80 H Alanine Aminotransferase (ALT/SGPT) 38 Alkaline Phosphatase 55 Total Protein 4.4 L Albumin 2.1 L Globulin 2.30 Albumin/Globulin Ratio 0.91 Lab Scanned Report REFERENCE LAB Medications Medications Current Medications Potassium Cl/ Dextrose/Lact Ringer's (D5-Lr + KCl 20 Meq) 1,000 ml @ 30 mls/hr Q24H IV Last administered on 11/01/16 08:35; Admin Dose 80 MLS/HR; Start at 17:00 Dimethicone (Blistex Lip [place]) 1 applic Q2H PRN TOP CHAPPED LIPS; Start at 09:30 Diphenhydramine HCl (Benadryl) 25 mg Q6H PRN IV ITCHING Last administered on 06:34; Admin Dose 25 MG; Start 10/11/16 at 16:19 Hydralazine HCl 10 mg 10 mg Q4H PRN IV ELEVATED BLOOD PRESSURE; Start 10/15/16 at 10:00 Acetaminophen (Ofirmev 1000mg/ 100ml Iv) 100 ml @ 400 mls/hr Q6H PRN IVPB HEADACHE Last administered on 10/27/16 09:48; Admin Dose 400 MLS/HR; Start at 10:00 IV Flush (NS 10 ml) 10 ml PRN PRN IV FLUSH LINE Last administered on 10/22/16 20:40; Admin Dose 10 ML; Start 10/16/16 at 11:00 Tramadol HCl (Ultram) 50 mg Q6H PRN PO PAIN LEVEL 6-10 Last administered on 10/29 01:56; Admin Dose 50 MG; Start 10/19/16 at 23:00 Hydromorphone HCl (Dilaudid) 0.5 mg Q8 PRN IV PAIN Last administered on 03:04; Admin Dose 0.5 MG; Start 10/23/16 at 06:00 Pantoprazole 40 mg 40 mg DAILY@06 PO Last administered on 11/01/16 05:37; Admin Dose 40 MG; Start 10/25/16 at 06:00 Ondansetron HCl/ Dextrose (Zofran Inj/D5W) 54 ml @ 108 mls/hr Q8H PRN IV NAUSEA AND/OR VOMITING; Start 10/24/16 at 17:30 Prochlorperazine (Compazine Inj) 10 mg Q8H PRN IV NAUSEA AND/OR VOMITING Last administered on 10/30/16 23:25; Admin Dose 10 MG; Start 10/24/16 at 17:30 Hydrocortisone (Solu-Cortef) 100 mg PRN PRN IV ALLERGIC REACTION; Start at 22:00 Diphenhydramine HCl 50 mg 50 mg PRN PRN IV ALLERGIC REACTION; Start 10/25/16 at 22:00 Ceftriaxone Sodium (Rocephin) 50 ml @ 100 mls/hr Q24H IVPB Last administered on 11/01/16 17:24; Admin Dose 100 MLS/HR; Start 10/25/16 at 17:00 Bisacodyl (Dulcolax) 5 mg DAILY PRN PO CONSTIPATION Last administered on 10:31; Admin Dose 5 MG; Start 10/28/16 at 10:00 Ondansetron HCl (Zofran Inj) 4 mg Q6H PRN IV NAUSEA AND/OR VOMITING Last administered on 10/30/16 18:05; Admin Dose 4 MG; Start 10/29/16 at 09:00 Metoprolol Tartrate (Lopressor) 5 mg Q4H PRN IV HR>110 Hold SBP<100; Start 10/29 at 18:00 Metoclopramide HCl (Reglan) 10 mg Q6H PRN IV NAUSEA; Start 10/31/16 at 09:00 Atenolol (Tenormin) 25 mg DAILY PO ; Start 11/01/16 at 09:00 NUPUR RODRÍGUEZ MD November 01, 2016 21:37
[2016-11-02] VITALS (11 sets, daily range): BP systolic 99–118; BP diastolic 55–66; PULSE 77–107; RESP 16–20
[2016-11-02] MEDS: PANTOPRAZOLE (EC) 40 MG TAB PO SCH (06:02)
[2016-11-02 06:50] LABS: ADD SCAN DIFF NO
[2016-11-02 07:02] LABS: ABNORMAL IP MESSAGE 1; HEMATOCRIT 26.9 % (37.0-47.0); HEMOGLOBIN 8.8 g/dl (12.0-16.0); MEAN CORPUSCULAR HEMOGLOBIN 28.6 pg (29.0-33.0); MEAN CORPUSCULAR HGB CONC 32.7 g/dl (32.0-37.0); MEAN CORPUSCULAR VOLUME 87.3 fl (82.0-101.0); MEAN PLATELET VOLUME 10.1 fl (7.4-10.4); PLATELET COUNT 239 10^3/UL (140-415); RED BLOOD COUNT 3.08 10^6/ul (4.20-5.40); WHITE BLOOD COUNT 1.2 10^3/ul (4.8-10.8)
[2016-11-02 07:53] LABS: ALBUMIN 1.9 g/dl (3.3-4.9); ALBUMIN/GLOBULIN RATIO 0.82; BILIRUBIN,INDIRECT 0.2 mg/dl (0-1.1); BILIRUBIN,TOTAL 0.2 mg/dl (0.2-1.3); CALCIUM 7.5 mg/dl (8.4-10.2); CREATININE 0.75 mg/dl (0.44-1.00); POTASSIUM 3.8 mmol/L (3.5-5.1); TOTAL PROTEIN 4.2 g/dl (6.1-8.1)
[2016-11-02] MEDS: ATENOLOL 25 MG TAB PO SCH (08:14)
[2016-11-02 10:15] LABS: LYMPHOCYTES # 0.3 10^3/ul (0.8-2.9); MONOCYTE # 0.1 10^3/ul (0.3-0.9); NEUTROPHIL # 0.8 10^3/ul (1.6-7.5); TOXIC GRANULATION 1+
--- NOTE | 2016-11-02 13:14 | PN ---
Date/Time of Note Date/Time of Note DATE: 11/02/16 TIME: 13:12 Assessment/Plan VTE Prophylaxis VTE Prophylaxis Intervention: SCD's Lines/Catheters IV C[facility]ter Type [facility]from [facility] PICC Line Central line still needed: Yes Urinary Cath still in place: No Assessment/Plan Chief Complaint/Hosp Course Assessment and plan: - Stage IV endometrial cancer, status post surgical procedure with CYNDI/BSO and recto-sigmoid en-bloc with low anastomosis by Dr. Bueno on 10/11. Path report showed metastatic carcinosarcoma. Started on chemotherapy. Dr. Logan is following in oncology consultation. - Tachycardia, Dr. Oglesby is asked to see patient in cardiology consultation. - Hypertension. Continue hydralazine as needed for systolic blood pressure above 170. - Dyslipidemia. We will resume statins when patient is able to tolerate p.o. - Gastritis. Continue Protonix. Further recommendations based on clinical course. Plan of care discussed with Dr. Richardson. Problems: Subjective 24 Hr Interval Summary Free Text/Dictation Patient's continues to have bilateral lower extremities edema, continue to elevate bilateral lower extremities, patient denies any nausea, rates diet well. Exam/Review of Systems Vital Signs Vitals Vital Signs Date Time Temp Pulse Resp B/P Pulse Ox O2 Delivery O2 Flow Rate FiO2 11/02/16 12:15 77 11/02/16 11:21 98.2 18 99/55 97 11/02/16 08:00 Nasal Cannula 2.0 Intake and Output 11/01/16 11/01/16 11/02/16 15:00 23:00 07:00 Intake Total 710 ml 570 ml Output Total 150 ml 1730 ml 870 ml Balance -150 ml -1020 ml -300 ml Exam Constitutional: alert, oriented Psych: no complaints Head: normocephalic Eyes: nl conjunctiva ENMT: nl external ears & nose Neck: non-tender, supple Respiratory: clear to auscultation, normal air movement Cardiovascular: nl pulses, regular rate and rhythm Gastrointestinal: other (Status post surgery, surgical incision is intact with ag and left lower quadrant BJ.), soft Musculoskeletal: nl extremities to inspection Extremities: normal pulses Neurological: SISAL PICKER II-XII intact Results Result Diagram: 11/02/16 0615 11/02/16 0615 Results 24 hrs Laboratory Tests Test 11/02/16 06:15 White Blood Count 1.2 #L Red Blood Count 3.08 L Hemoglobin 8.8 L Hematocrit 26.9 L Mean Corpuscular Volume 87.3 Mean Corpuscular Hemoglobin 28.6 L Mean Corpuscular Hemoglobin Concent 32.7 Red Cell Distribution Width 13.0 Platelet Count 239 Mean Platelet Volume 10.1 Neutrophils % 65.0 Band Neutrophils % 7.0 H Lymphocytes % 23.0 Monocytes % 5.0 Eosinophils % Neutrophils # 0.8 L Lymphocytes # 0.3 L Monocytes # 0.1 L Eosinophils # Toxic Granulation 1+ Sodium Level 131 L Potassium Level 3.8 Chloride Level 105 Carbon Dioxide Level 27 Anion Gap 3 L Blood Urea Nitrogen 12 Creatinine 0.75 Glucose Level 91 Calcium Level 7.5 L Total Bilirubin 0.2 Direct Bilirubin 0.00 Indirect Bilirubin 0.2 Aspartate Amino Transf (AST/SGOT) 75 H Alanine Aminotransferase (ALT/SGPT) 50 Alkaline Phosphatase 54 Total Protein 4.2 L Albumin 1.9 L Globulin 2.30 Albumin/Globulin Ratio 0.82 Medications Medications Current Medications Potassium Cl/ Dextrose/Lact Ringer's (D5-Lr + KCl 20 Meq) 1,000 ml @ 30 mls/hr Q24H IV Last administered on 11/01/16 08:35; Admin Dose 80 MLS/HR; Start at 17:00 Dimethicone (Blistex Lip [place]) 1 applic Q2H PRN TOP CHAPPED LIPS; Start at 09:30 Diphenhydramine HCl (Benadryl) 25 mg Q6H PRN IV ITCHING Last administered on 06:34; Admin Dose 25 MG; Start 10/11/16 at 16:19 Hydralazine HCl 10 mg 10 mg Q4H PRN IV ELEVATED BLOOD PRESSURE; Start 10/15/16 at 10:00 Acetaminophen (Ofirmev 1000mg/ 100ml Iv) 100 ml @ 400 mls/hr Q6H PRN IVPB HEADACHE Last administered on 10/27/16 09:48; Admin Dose 400 MLS/HR; Start at 10:00 IV Flush (NS 10 ml) 10 ml PRN PRN IV FLUSH LINE Last administered on 10/22/16 20:40; Admin Dose 10 ML; Start 10/16/16 at 11:00 Tramadol HCl (Ultram) 50 mg Q6H PRN PO PAIN LEVEL 6-10 Last administered on 10/29 01:56; Admin Dose 50 MG; Start 10/19/16 at 23:00 Hydromorphone HCl (Dilaudid) 0.5 mg Q8 PRN IV PAIN Last administered on 03:04; Admin Dose 0.5 MG; Start 10/23/16 at 06:00 Pantoprazole 40 mg 40 mg DAILY@06 PO Last administered on 11/02/16 06:02; Admin Dose 40 MG; Start 10/25/16 at 06:00 Ondansetron HCl/ Dextrose (Zofran Inj/D5W) 54 ml @ 108 mls/hr Q8H PRN IV NAUSEA AND/OR VOMITING; Start 10/24/16 at 17:30 Prochlorperazine (Compazine Inj) 10 mg Q8H PRN IV NAUSEA AND/OR VOMITING Last administered on 10/30/16 23:25; Admin Dose 10 MG; Start 10/24/16 at 17:30 Hydrocortisone (Solu-Cortef) 100 mg PRN PRN IV ALLERGIC REACTION; Start at 22:00 Diphenhydramine HCl 50 mg 50 mg PRN PRN IV ALLERGIC REACTION; Start 10/25/16 at 22:00 Ceftriaxone Sodium (Rocephin) 50 ml @ 100 mls/hr Q24H IVPB Last administered on 11/01/16 17:24; Admin Dose 100 MLS/HR; Start 10/25/16 at 17:00 Bisacodyl (Dulcolax) 5 mg DAILY PRN PO CONSTIPATION Last administered on 10:31; Admin Dose 5 MG; Start 10/28/16 at 10:00 Ondansetron HCl (Zofran Inj) 4 mg Q6H PRN IV NAUSEA AND/OR VOMITING Last administered on 10/30/16 18:05; Admin Dose 4 MG; Start 10/29/16 at 09:00 Metoprolol Tartrate (Lopressor) 5 mg Q4H PRN IV HR>110 Hold SBP<100; Start 10/29 at 18:00 Metoclopramide HCl (Reglan) 10 mg Q6H PRN IV NAUSEA; Start 10/31/16 at 09:00 Atenolol (Tenormin) 25 mg DAILY PO Last administered on 11/02/16t 08:14; Admin Dose 25 MG; Start 11/01/16 at 09:00 ELVIN TEIXEIRA November 02, 2016 13:14
--- NOTE | 2016-11-02 14:17 | CONS ---
Date/Time of Note Date/Time of Note DATE: 11/02/16 TIME: 14:15 Assessment/Plan Assessment/Plan Chief Complaint/Hosp Course IMPRESSION: 1. Tachyarrhythmia, most consistent with sinus tachycardia-overall improved with HR in high 90's to low 100 2. History of hypertension with stable blood pressures at this time. 3. Abnormal electrocardiogram with right axis deviation and nonspecific ST-T abnormalities, assess for acute coronary syndrome. 4. History of dyslipidemia. 5. Endometrial cancer status post 1 cycle of chemotherapy with Taxol and ifosfamide. 6. Leukocytosis, severe, assess for infection. 7. Hyponatremia-ongoing 8. Anemia. 9.Nausea Recc: -Tele -serial ecg's -consider decrease in IVF rate given LE edema -Atenolol as tolerated -Follow HR/BP closely -Continue abx's and f/u cx data Problems: Consultation Date/Type/Reason Admit Date/Time Oct 10, 2016 at 09:46 Initial Consult Date 10/12/16 Type of Consultation: Cardiology Reason for Consultation tachycardia Referring Provider: ARLENE CHOWDARY MD Exam/Review of Systems Vital Signs Vitals Vital Signs Date Time Temp Pulse Resp B/P Pulse Ox O2 Delivery O2 Flow Rate FiO2 11/02/16 12:15 77 11/02/16 11:21 98.2 18 99/55 97 11/02/16 08:00 Nasal Cannula 2.0 Intake and Output 11/01/16 11/01/16 11/02/16 15:00 23:00 07:00 Intake Total 710 ml 570 ml Output Total 150 ml 1730 ml 870 ml Balance -150 ml -1020 ml -300 ml Exam Review of Systems: CONSTITUTIONAL: No fevers, chills. PULMONARY: No sob CARDIOVASCULAR: No chest pain/palpitations GASTROINTESTINAL: No nausea/vomiting. GENITOURINARY: No hematuria/dysuria. MUSCULOSKELETAL: No myagias/arthalgias. PSYCHIATRIC: The patient denies depression. NEUROLOGIC: No weakness Constitutional: alert, oriented Psych: no complaints ENMT: mucosa pink and moist Neck: jvd (9 cm water), supple Respiratory: diminished breath sounds Cardiovascular: regular rate and rhythm Gastrointestinal: non-tender, soft Musculoskeletal: muscle tone (normal) Extremities: edema (trace/B) Neurological: lethargic Results Result Diagram: 11/02/1615 5/5/17 0615 Results 24 hrs Laboratory Tests Test 11/02/16 06:15 White Blood Count 1.2 #L Red Blood Count 3.08 L Hemoglobin 8.8 L Hematocrit 26.9 L Mean Corpuscular Volume 87.3 Mean Corpuscular Hemoglobin 28.6 L Mean Corpuscular Hemoglobin Concent 32.7 Red Cell Distribution Width 13.0 Platelet Count 239 Mean Platelet Volume 10.1 Neutrophils % 65.0 Band Neutrophils % 7.0 H Lymphocytes % 23.0 Monocytes % 5.0 Eosinophils % Neutrophils # 0.8 L Lymphocytes # 0.3 L Monocytes # 0.1 L Eosinophils # Toxic Granulation 1+ Sodium Level 131 L Potassium Level 3.8 Chloride Level 105 Carbon Dioxide Level 27 Anion Gap 3 L Blood Urea Nitrogen 12 Creatinine 0.75 Glucose Level 91 Calcium Level 7.5 L Total Bilirubin 0.2 Direct Bilirubin 0.00 Indirect Bilirubin 0.2 Aspartate Amino Transf (AST/SGOT) 75 H Alanine Aminotransferase (ALT/SGPT) 50 Alkaline Phosphatase 54 Total Protein 4.2 L Albumin 1.9 L Globulin 2.30 Albumin/Globulin Ratio 0.82 Medications Medications Current Medications Potassium Cl/ Dextrose/Lact Ringer's (D5-Lr + KCl 20 Meq) 1,000 ml @ 30 mls/hr Q24H IV Last administered on 11/01/16 08:35; Admin Dose 80 MLS/HR; Start at 17:00 Dimethicone (Blistex Lip [place]) 1 applic Q2H PRN TOP CHAPPED LIPS; Start at 09:30 Diphenhydramine HCl (Benadryl) 25 mg Q6H PRN IV ITCHING Last administered on 06:34; Admin Dose 25 MG; Start 10/11/16 at 16:19 Hydralazine HCl 10 mg 10 mg Q4H PRN IV ELEVATED BLOOD PRESSURE; Start 10/15/16 at 10:00 Acetaminophen (Ofirmev 1000mg/ 100ml Iv) 100 ml @ 400 mls/hr Q6H PRN IVPB HEADACHE Last administered on 10/27/16 09:48; Admin Dose 400 MLS/HR; Start at 10:00 IV Flush (NS 10 ml) 10 ml PRN PRN IV FLUSH LINE Last administered on 10/22/16 20:40; Admin Dose 10 ML; Start 10/16/16 at 11:00 Tramadol HCl (Ultram) 50 mg Q6H PRN PO PAIN LEVEL 6-10 Last administered on 10/29 01:56; Admin Dose 50 MG; Start 10/19/16 at 23:00 Hydromorphone HCl (Dilaudid) 0.5 mg Q8 PRN IV PAIN Last administered on 03:04; Admin Dose 0.5 MG; Start 10/23/16 at 06:00 Pantoprazole 40 mg 40 mg DAILY@06 PO Last administered on 11/02/16 06:02; Admin Dose 40 MG; Start 10/25/16 at 06:00 Ondansetron HCl/ Dextrose (Zofran Inj/D5W) 54 ml @ 108 mls/hr Q8H PRN IV NAUSEA AND/OR VOMITING; Start 10/24/16 at 17:30 Prochlorperazine (Compazine Inj) 10 mg Q8H PRN IV NAUSEA AND/OR VOMITING Last administered on 10/30/16 23:25; Admin Dose 10 MG; Start 10/24/16 at 17:30 Hydrocortisone (Solu-Cortef) 100 mg PRN PRN IV ALLERGIC REACTION; Start at 22:00 Diphenhydramine HCl 50 mg 50 mg PRN PRN IV ALLERGIC REACTION; Start 10/25/16 at 22:00 Ceftriaxone Sodium (Rocephin) 50 ml @ 100 mls/hr Q24H IVPB Last administered on 11/01/16 17:24; Admin Dose 100 MLS/HR; Start 10/25/16 at 17:00 Bisacodyl (Dulcolax) 5 mg DAILY PRN PO CONSTIPATION Last administered on 10:31; Admin Dose 5 MG; Start 10/28/16 at 10:00 Ondansetron HCl (Zofran Inj) 4 mg Q6H PRN IV NAUSEA AND/OR VOMITING Last administered on 10/30/16 18:05; Admin Dose 4 MG; Start 10/29/16 at 09:00 Metoprolol Tartrate (Lopressor) 5 mg Q4H PRN IV HR>110 Hold SBP<100; Start 10/29 at 18:00 Metoclopramide HCl (Reglan) 10 mg Q6H PRN IV NAUSEA; Start 10/31/16 at 09:00 Atenolol (Tenormin) 25 mg DAILY PO Last administered on 11/02/16t 08:14; Admin Dose 25 MG; Start 11/01/16 at 09:00 BALDEMAR RIVERA November 02, 2016 14:16
[2016-11-02] MEDS: CEFTRIAXONE 1 GM/50 ML (PMX) 50 ML IVPB SCH (17:23)
--- NOTE | 2016-11-02 17:42 | CONS ---
Date/Time of Note Date/Time of Note DATE: 11/02/16 TIME: 17:40 Assessment/Plan Assessment/Plan Chief Complaint/Hosp Course The patient is a 56-year-old female with recent diagnosis of endometrial cancer on 09/17/2016 by endometrial biopsy. The patient was diagnosed with stage IV endometrial cancer. She underwent CYNDI/BSO and recto-sigmoid en-bloc with low anastomosis per Dr. Bueno on 10/11/16. She had extensive positive retroperitoneal lymph nodes removed but the confluence of disease makes her classified as millimeter residual disease. - Path report showed metastatic carcinosarcoma. Per Dr. Kitchen of pathology, tumor is poorly differentiated though mostly sarcoma (90%) in the metastases. Ifosfamide/taxol with carbo taxol chemorx recommended: Dr. Bueno, would like to treat with 8 cycles of each regimen. Side effects including N/V, fatigue, myelosuppression, allergic reaction, confusion, hemorrhagic cystitis discussed with the patient. -Patient is now cycle 1 day 8 of ifosfamide/taxol 10/25/16, tolerated fairly well thus far. labs stable and continue supportive care. -Pt remains tachycardic. This may be secondary to the taxol. Pt getting hydrated , Cardiology on board -Ct A/P done 10/29/16 shows no evidence of acute intraabdominal process. known metastatic disease was seen. Prior CT A/P with and without contrast 10/02/16 demonstrated metastatic spread with bilateral right greater than left adnexal lesions, with areas of infiltration and nodularity within the right paracolic gutter and transverse mesocolon. Recs - continue to monitor for [employer] symptoms. Currently there are no signs of encephalopathy with ifosfamide. - continue antiemetic support. Zofran 8mg IV q 6 started. Will consider given [place]ynzeo with next cycle - Avoid benzodiazepines or Ambien while receiving ifosfamide. - continue to monitor counts - cont to monitor HR. May be secondary to the Taxol. Appreciate cardiology consult. Continue IV hydration in case dehydration is contributing to this - cont ceftriaxone for UTI - ANC dropped to 0.8, will restart neupogen 480 mcg daily and monitor ANC daily Patient will need to be re-admitted in 3 weeks for cycle 2 ifosfamide/taxol Chemo regimen (started 10/25/16) Ifosfamide 1600 mg/mg2 IV once per week D1-3 Paclitaxel 135 mg/m2 IV over 3 hours D1 [place] 2000 mg IV over 12 hours once per day (15 minutes before ifosfamide) D1-3 Decadron 20 mg PO 12 hours and 6 hours prior to paclitaxel Neupogen 480 mcg subcutaneous once per day starting D4 until ANC > 2000 Problems: Consultation Date/Type/Reason Admit Date/Time Oct 10, 2016 at 09:46 Initial Consult Date 10/12/16 Type of Consultation: Oncology Referring Provider: ARLENE CHOWDARY MD 24 HR Interval Summary Free Text/Dictation Patient doing well this morning, no N/V. Exam/Review of Systems Vital Signs Vitals Vital Signs Date Time Temp Pulse Resp B/P Pulse Ox O2 Delivery O2 Flow Rate FiO2 11/02/16 17:01 92 11/02/16 15:04 98.2 18 100/60 99 11/02/16 08:00 Nasal Cannula 2.0 Intake and Output 11/01/16 11/01/16 11/02/16 15:00 23:00 07:00 Intake Total 710 ml 570 ml Output Total 150 ml 1730 ml 870 ml Balance -150 ml -1020 ml -300 ml Exam Constitutional: alert, frail, oriented Psych: no complaints Head: normocephalic Eyes: nl conjunctiva ENMT: nl external ears & nose Neck: non-tender, supple Respiratory: clear to auscultation, normal air movement Cardiovascular: nl pulses, regular rate and rhythm Gastrointestinal: soft Musculoskeletal: bilateral lower extremity edema, nl gait and stance Results Result Diagram: 11/02/16 0615 11/02/16 0615 Results 24 hrs Laboratory Tests Test 11/02/16 06:15 White Blood Count 1.2 #L Red Blood Count 3.08 L Hemoglobin 8.8 L Hematocrit 26.9 L Mean Corpuscular Volume 87.3 Mean Corpuscular Hemoglobin 28.6 L Mean Corpuscular Hemoglobin Concent 32.7 Red Cell Distribution Width 13.0 Platelet Count 239 Mean Platelet Volume 10.1 Neutrophils % 65.0 Band Neutrophils % 7.0 H Lymphocytes % 23.0 Monocytes % 5.0 Eosinophils % Neutrophils # 0.8 L Lymphocytes # 0.3 L Monocytes # 0.1 L Eosinophils # Toxic Granulation 1+ Sodium Level 131 L Potassium Level 3.8 Chloride Level 105 Carbon Dioxide Level 27 Anion Gap 3 L Blood Urea Nitrogen 12 Creatinine 0.75 Glucose Level 91 Calcium Level 7.5 L Total Bilirubin 0.2 Direct Bilirubin 0.00 Indirect Bilirubin 0.2 Aspartate Amino Transf (AST/SGOT) 75 H Alanine Aminotransferase (ALT/SGPT) 50 Alkaline Phosphatase 54 Total Protein 4.2 L Albumin 1.9 L Globulin 2.30 Albumin/Globulin Ratio 0.82 Medications Medications Current Medications Potassium Cl/ Dextrose/Lact Ringer's (D5-Lr + KCl 20 Meq) 1,000 ml @ 30 mls/hr Q24H IV Last administered on 11/01/16 08:35; Admin Dose 80 MLS/HR; Start at 17:00 Dimethicone (Blistex Lip [place]) 1 applic Q2H PRN TOP CHAPPED LIPS; Start at 09:30 Diphenhydramine HCl (Benadryl) 25 mg Q6H PRN IV ITCHING Last administered on 06:34; Admin Dose 25 MG; Start 10/11/16 at 16:19 Hydralazine HCl 10 mg 10 mg Q4H PRN IV ELEVATED BLOOD PRESSURE; Start 10/15/16 at 10:00 Acetaminophen (Ofirmev 1000mg/ 100ml Iv) 100 ml @ 400 mls/hr Q6H PRN IVPB HEADACHE Last administered on 10/27/16 09:48; Admin Dose 400 MLS/HR; Start at 10:00 IV Flush (NS 10 ml) 10 ml PRN PRN IV FLUSH LINE Last administered on 10/22/16 20:40; Admin Dose 10 ML; Start 10/16/16 at 11:00 Tramadol HCl (Ultram) 50 mg Q6H PRN PO PAIN LEVEL 6-10 Last administered on 10/29 01:56; Admin Dose 50 MG; Start 10/19/16 at 23:00 Hydromorphone HCl (Dilaudid) 0.5 mg Q8 PRN IV PAIN Last administered on 03:04; Admin Dose 0.5 MG; Start 10/23/16 at 06:00 Pantoprazole 40 mg 40 mg DAILY@06 PO Last administered on 11/02/16 06:02; Admin Dose 40 MG; Start 10/25/16 at 06:00 Ondansetron HCl/ Dextrose (Zofran Inj/D5W) 54 ml @ 108 mls/hr Q8H PRN IV NAUSEA AND/OR VOMITING; Start 10/24/16 at 17:30 Prochlorperazine (Compazine Inj) 10 mg Q8H PRN IV NAUSEA AND/OR VOMITING Last administered on 10/30/16 23:25; Admin Dose 10 MG; Start 10/24/16 at 17:30 Hydrocortisone (Solu-Cortef) 100 mg PRN PRN IV ALLERGIC REACTION; Start at 22:00 Diphenhydramine HCl 50 mg 50 mg PRN PRN IV ALLERGIC REACTION; Start 10/25/16 at 22:00 Ceftriaxone Sodium (Rocephin) 50 ml @ 100 mls/hr Q24H IVPB Last administered on 11/02/16 17:23; Admin Dose 100 MLS/HR; Start 10/25/16 at 17:00 Bisacodyl (Dulcolax) 5 mg DAILY PRN PO CONSTIPATION Last administered on 10:31; Admin Dose 5 MG; Start 10/28/16 at 10:00 Ondansetron HCl (Zofran Inj) 4 mg Q6H PRN IV NAUSEA AND/OR VOMITING Last administered on 10/30/16 18:05; Admin Dose 4 MG; Start 10/29/16 at 09:00 Metoprolol Tartrate (Lopressor) 5 mg Q4H PRN IV HR>110 Hold SBP<100; Start 10/29 at 18:00 Metoclopramide HCl (Reglan) 10 mg Q6H PRN IV NAUSEA; Start 10/31/16 at 09:00 Atenolol (Tenormin) 12.5 mg DAILY PO ; Start 11/03/16 at 09:00 Filgrastim (Neupogen) 480 mcg DAILY@17 SC ; Start 11/03/16 at 17:00; Status UNV TO,LINDA Arenas MD November 02, 2016 17:42
--- NOTE | 2016-11-02 21:58 | PN ---
Date/Time of Note Date/Time of Note DATE: 11/02/16 TIME: 21:55 Assessment/Plan VTE Prophylaxis VTE Prophylaxis Intervention: SCD's Lines/Catheters IV Catheter Type (from Nrs): PICC Line Central line still needed: Yes Urinary Cath still in place: No Assessment/Plan Chief Complaint/Hosp Course stage IV endometrial cancer Problems: Assessment/Plan A- improved P- agree neupogen consider PT eval and OOB Subjective 24 Hr Interval Summary Free Text/Dictation Eats better an voids. Want to ambulate. Exam/Review of Systems Vital Signs Vitals Vital Signs Date Time Temp Pulse Resp B/P Pulse Ox O2 Delivery O2 Flow Rate FiO2 11/02/16 20:31 98.2 89 20 100/60 97 11/02/16 08:00 Nasal Cannula 2.0 Intake and Output 11/01/16 11/01/16 11/02/16 15:00 23:00 07:00 Intake Total 710 ml 570 ml Output Total 150 ml 1730 ml 870 ml Balance -150 ml -1020 ml -300 ml Exam Respiratory: clear to auscultation, normal air movement Cardiovascular: nl pulses Gastrointestinal: non-tender, soft Extremities: normal pulses Results Result Diagram: 11/02/16 0615 11/02/16 0615 Results 24 hrs Laboratory Tests Test 11/02/16 06:15 White Blood Count 1.2 #L Red Blood Count 3.08 L Hemoglobin 8.8 L Hematocrit 26.9 L Mean Corpuscular Volume 87.3 Mean Corpuscular Hemoglobin 28.6 L Mean Corpuscular Hemoglobin Concent 32.7 Red Cell Distribution Width 13.0 Platelet Count 239 Mean Platelet Volume 10.1 Neutrophils % 65.0 Band Neutrophils % 7.0 H Lymphocytes % 23.0 Monocytes % 5.0 Eosinophils % Neutrophils # 0.8 L Lymphocytes # 0.3 L Monocytes # 0.1 L Eosinophils # Toxic Granulation 1+ Sodium Level 131 L Potassium Level 3.8 Chloride Level 105 Carbon Dioxide Level 27 Anion Gap 3 L Blood Urea Nitrogen 12 Creatinine 0.75 Glucose Level 91 Calcium Level 7.5 L Total Bilirubin 0.2 Direct Bilirubin 0.00 Indirect Bilirubin 0.2 Aspartate Amino Transf (AST/SGOT) 75 H Alanine Aminotransferase (ALT/SGPT) 50 Alkaline Phosphatase 54 Total Protein 4.2 L Albumin 1.9 L Globulin 2.30 Albumin/Globulin Ratio 0.82 Medications Medications Current Medications Potassium Cl/ Dextrose/Lact Ringer's (D5-Lr + KCl 20 Meq) 1,000 ml @ 30 mls/hr Q24H IV Last administered on 11/01/16 08:35; Admin Dose 80 MLS/HR; Start at 17:00 Dimethicone (Blistex Lip [place]) 1 applic Q2H PRN TOP CHAPPED LIPS; Start at 09:30 Diphenhydramine HCl (Benadryl) 25 mg Q6H PRN IV ITCHING Last administered on 06:34; Admin Dose 25 MG; Start 10/11/16 at 16:19 Hydralazine HCl 10 mg 10 mg Q4H PRN IV ELEVATED BLOOD PRESSURE; Start 10/15/16 at 10:00 Acetaminophen (Ofirmev 1000mg/ 100ml Iv) 100 ml @ 400 mls/hr Q6H PRN IVPB HEADACHE Last administered on 10/27/16 09:48; Admin Dose 400 MLS/HR; Start at 10:00 IV Flush (NS 10 ml) 10 ml PRN PRN IV FLUSH LINE Last administered on 10/22/16 20:40; Admin Dose 10 ML; Start 10/16/16 at 11:00 Tramadol HCl (Ultram) 50 mg Q6H PRN PO PAIN LEVEL 6-10 Last administered on 10/29 01:56; Admin Dose 50 MG; Start 10/19/16 at 23:00 Hydromorphone HCl (Dilaudid) 0.5 mg Q8 PRN IV PAIN Last administered on 03:04; Admin Dose 0.5 MG; Start 10/23/16 at 06:00 Pantoprazole 40 mg 40 mg DAILY@06 PO Last administered on 11/02/16 06:02; Admin Dose 40 MG; Start 10/25/16 at 06:00 Ondansetron HCl/ Dextrose (Zofran Inj/D5W) 54 ml @ 108 mls/hr Q8H PRN IV NAUSEA AND/OR VOMITING; Start 10/24/16 at 17:30 Prochlorperazine (Compazine Inj) 10 mg Q8H PRN IV NAUSEA AND/OR VOMITING Last administered on 10/30/16 23:25; Admin Dose 10 MG; Start 10/24/16 at 17:30 Hydrocortisone (Solu-Cortef) 100 mg PRN PRN IV ALLERGIC REACTION; Start at 22:00 Diphenhydramine HCl 50 mg 50 mg PRN PRN IV ALLERGIC REACTION; Start 10/25/16 at 22:00 Ceftriaxone Sodium (Rocephin) 50 ml @ 100 mls/hr Q24H IVPB Last administered on 11/02/16 17:23; Admin Dose 100 MLS/HR; Start 10/25/16 at 17:00 Bisacodyl (Dulcolax) 5 mg DAILY PRN PO CONSTIPATION Last administered on 10:31; Admin Dose 5 MG; Start 10/28/16 at 10:00 Ondansetron HCl (Zofran Inj) 4 mg Q6H PRN IV NAUSEA AND/OR VOMITING Last administered on 10/30/16 18:05; Admin Dose 4 MG; Start 10/29/16 at 09:00 Metoprolol Tartrate (Lopressor) 5 mg Q4H PRN IV HR>110 Hold SBP<100; Start 10/29 at 18:00 Metoclopramide HCl (Reglan) 10 mg Q6H PRN IV NAUSEA; Start 10/31/16 at 09:00 Atenolol (Tenormin) 12.5 mg DAILY PO ; Start 11/03/16 at 09:00 Filgrastim (Neupogen) 480 mcg DAILY@17 SC ; Start 11/03/16 at 17:00 NUPUR RODRÍGUEZ MD November 02, 2016 21:58
[2016-11-02] MEDS: D5-LR + KCL 20 MEQ 1,000 ML IV SCH (22:26)
[2016-11-03] VITALS (13 sets, daily range): BP systolic 87–110; BP diastolic 51–72; PULSE 69–85; RESP 16–21
[2016-11-03] MEDS: PANTOPRAZOLE (EC) 40 MG TAB PO SCH (05:38)
[2016-11-03 06:51] LABS: ADD SCAN DIFF NO
[2016-11-03 06:56] LABS: ABNORMAL IP MESSAGE 1; HEMATOCRIT 27.7 % (37.0-47.0); MEAN CORPUSCULAR HEMOGLOBIN 28.2 pg (29.0-33.0); MEAN CORPUSCULAR HGB CONC 32.5 g/dl (32.0-37.0); MEAN CORPUSCULAR VOLUME 86.8 fl (82.0-101.0); PLATELET COUNT 291 10^3/UL (140-415); RED BLOOD COUNT 3.19 10^6/ul (4.20-5.40); WHITE BLOOD COUNT 0.8 10^3/ul (4.8-10.8)
[2016-11-03 07:22] LABS: CALCIUM 7.4 mg/dl (8.4-10.2); CREATININE 0.6 mg/dl (0.44-1.00)
[2016-11-03] MEDS: ATENOLOL 25 MG TAB PO SCH (09:26)
[2016-11-03 10:44] LABS: LYMPHOCYTES # 0.4 10^3/ul (0.8-2.9); MONOCYTE # 0.1 10^3/ul (0.3-0.9); NEUTROPHIL # 0.3 10^3/ul (1.6-7.5)
--- NOTE | 2016-11-03 11:42 | CONS ---
Date/Time of Note Date/Time of Note DATE: 11/03/16 TIME: 11:40 Assessment/Plan Assessment/Plan Additional Assessment/Plan 1. Tachyarrhythmia, most consistent with sinus tachycardia-overall improved with HR in high 90's to low 100 - stable on tele now 2. History of hypertension with stable blood pressures at this time- well rx 3. Abnormal electrocardiogram with right axis deviation and nonspecific ST-T abnormalities, assess for acute coronary syndrome. 4. History of dyslipidemia. 5. Endometrial cancer status post 1 cycle of chemotherapy with Taxol and ifosfamide- millinery copyist team follows 6. Leukocytosis, severe, assess for infection. 7. Hyponatremia-ongoing 8. Anemia.- H/H stable - no bleeding now 9.Nausea Consultation Date/Type/Reason Admit Date/Time Oct 10, 2016 at 09:46 Initial Consult Date 10/12/16 Type of Consultation: Oncology Referring Provider: ARLENE CHOWDARY MD 24 HR Interval Summary Free Text/Dictation NO acute events - BP maintained - no arrhythmia now ROS: No fever, no chills, no nausea, no vomiting, no diarrhea/constipation No recent weight changes No chest pain, no PND, no orthopnea No dizziness, blurred vision No thirst, no heat or cold intolerance Exam/Review of Systems Vital Signs Vitals Vital Signs Date Time Temp Pulse Resp B/P Pulse Ox O2 Delivery O2 Flow Rate FiO2 11/03/16 08:05 84 11/03/16 07:54 98.5 16 106/66 97 11/02/16 20:00 Nasal Cannula 2.0 Intake and Output 11/02/16 11/02/16 11/03/16 15:00 23:00 07:00 Intake Total 730 ml 550 ml Output Total 90 ml 1525 ml 1750 ml Balance -90 ml -795 ml -1200 ml Exam General: WN/WD/NAD, AOx 3 HEENT: Unicetric/atraumatic/EOMI (follows commands) NECK: JVD elevated, no thyromegaly Lymph: no lymphadenopathy HEART: regular with no S3, II/ systolic murmur at apex LUNGS: Coarse sounds ABD: soft, NT, ND, +BS : Intact Neuro: non focal SKIN: chronic changes EXT: trace edema Results Result Diagram: 11/03/16 0547 11/03/16 0545 Results 24 hrs Laboratory Tests Test 11/03/16 05:45 11/03/16 05:47 Sodium Level 131 L Potassium Level 4.0 Chloride Level 104 Carbon Dioxide Level 27 Anion Gap 4 L Blood Urea Nitrogen 8 Creatinine 0.60 Glucose Level 91 Calcium Level 7.4 L White Blood Count 0.8 #L Red Blood Count 3.19 L Hemoglobin 9.0 L Hematocrit 27.7 L Mean Corpuscular Volume 86.8 Mean Corpuscular Hemoglobin 28.2 L Mean Corpuscular Hemoglobin Concent 32.5 Red Cell Distribution Width 13.0 Platelet Count 291 # Mean Platelet Volume 10.0 Neutrophils % 36.0 L Lymphocytes % 54.0 H Monocytes % 8.0 Eosinophils % 2.0 Basophils % Neutrophils # 0.3 L Lymphocytes # 0.4 L Monocytes # 0.1 L Eosinophils # 0.0 Basophils # Medications Medications Current Medications Potassium Cl/ Dextrose/Lact Ringer's (D5-Lr + KCl 20 Meq) 1,000 ml @ 30 mls/hr Q24H IV Last administered on 11/02/16 22:26; Admin Dose 30 MLS/HR; Start at 17:00 Dimethicone (Blistex Lip [place]) 1 applic Q2H PRN TOP CHAPPED LIPS; Start at 09:30 Diphenhydramine HCl (Benadryl) 25 mg Q6H PRN IV ITCHING Last administered on 06:34; Admin Dose 25 MG; Start 10/11/16 at 16:19 Hydralazine HCl 10 mg 10 mg Q4H PRN IV ELEVATED BLOOD PRESSURE; Start 10/15/16 at 10:00 Acetaminophen (Ofirmev 1000mg/ 100ml Iv) 100 ml @ 400 mls/hr Q6H PRN IVPB HEADACHE Last administered on 10/27/16 09:48; Admin Dose 400 MLS/HR; Start at 10:00 IV Flush (NS 10 ml) 10 ml PRN PRN IV FLUSH LINE Last administered on 10/22/16 20:40; Admin Dose 10 ML; Start 10/16/16 at 11:00 Tramadol HCl (Ultram) 50 mg Q6H PRN PO PAIN LEVEL 6-10 Last administered on 10/29 01:56; Admin Dose 50 MG; Start 10/19/16 at 23:00 Hydromorphone HCl (Dilaudid) 0.5 mg Q8 PRN IV PAIN Last administered on 03:04; Admin Dose 0.5 MG; Start 10/23/16 at 06:00 Pantoprazole 40 mg 40 mg DAILY@06 PO Last administered on 11/03/16 05:38; Admin Dose 40 MG; Start 10/25/16 at 06:00 Ondansetron HCl/ Dextrose (Zofran Inj/D5W) 54 ml @ 108 mls/hr Q8H PRN IV NAUSEA AND/OR VOMITING; Start 10/24/16 at 17:30 Prochlorperazine (Compazine Inj) 10 mg Q8H PRN IV NAUSEA AND/OR VOMITING Last administered on 10/30/16 23:25; Admin Dose 10 MG; Start 10/24/16 at 17:30 Hydrocortisone (Solu-Cortef) 100 mg PRN PRN IV ALLERGIC REACTION; Start at 22:00 Diphenhydramine HCl 50 mg 50 mg PRN PRN IV ALLERGIC REACTION; Start 10/25/16 at 22:00 Ceftriaxone Sodium (Rocephin) 50 ml @ 100 mls/hr Q24H IVPB Last administered on 11/02/16 17:23; Admin Dose 100 MLS/HR; Start 10/25/16 at 17:00 Bisacodyl (Dulcolax) 5 mg DAILY PRN PO CONSTIPATION Last administered on 10:31; Admin Dose 5 MG; Start 10/28/16 at 10:00 Ondansetron HCl (Zofran Inj) 4 mg Q6H PRN IV NAUSEA AND/OR VOMITING Last administered on 10/30/16 18:05; Admin Dose 4 MG; Start 10/29/16 at 09:00 Metoprolol Tartrate (Lopressor) 5 mg Q4H PRN IV HR>110 Hold SBP<100; Start 10/29 at 18:00 Metoclopramide HCl (Reglan) 10 mg Q6H PRN IV NAUSEA; Start 10/31/16 at 09:00 Atenolol (Tenormin) 12.5 mg DAILY PO Last administered on 11/03/16 09:26; Admin Dose 12.5 MG; Start 11/03/16 at 09:00 Filgrastim (Neupogen) 480 mcg DAILY@17 SC ; Start 11/03/16 at 17:00 JOHNNA PAUL MD November 03, 2016 11:42
--- NOTE | 2016-11-03 12:51 | PN ---
Date/Time of Note Date/Time of Note DATE: 11/03/16 TIME: 12:45 Assessment/Plan VTE Prophylaxis VTE Prophylaxis Intervention: other Lines/Catheters [facility] Type ([facility] PICC Line Central line still needed: Yes Urinary Cath still in place: No Assessment/Plan Assessment/Plan - Neutropenia - per hematology - on neutropenic precautions - Hyponatremia - monitor BMP, if worsen, will get nephrology consult. - Possible wound infection- discharge around inscion site- staff to notify Dr Bueno. - Stage IV endometrial cancer, status post surgical procedure with CYNDI/BSO and recto-sigmoid en-bloc with low anastomosis by Dr. Bueno on 10/11. Path report showed metastatic carcinosarcoma. Started on chemotherapy. per in oncology consultation. - Tachycardia, Dr. Oglesby is asked to see patient in cardiology consultation. - Hypertension. Continue hydralazine as needed for systolic blood pressure above 170. - Dyslipidemia. - start on Atorvastatin - Gastritis. Continue Protonix. Further recommendations based on clinical course. Plan of care discussed with Dr. Richardson. Subjective 24 Hr Interval Summary Free Text/Dictation resting in bed, having her lunch- tolerating well, afebrile, incisional discharge reported, dw staff. Family at bed side- all Qs answered. Constitutional: no complaints Eyes: no complaints ENT: no complaints Respiratory: no complaints Cardiovascular: no complaints Gastrointestinal: other (inscional pain), pain Genitourinary: no complaints Musculoskeletal: no complaints Skin: no complaints Neurologic: no complaints Endocrine: no complaints Exam/Review of Systems Vital Signs Vitals Vital Signs Date Time Temp Pulse Resp B/P Pulse Ox O2 Delivery O2 Flow Rate FiO2 11/03/16 12:05 73 11/03/16 11:55 97.7 16 99/62 100 11/02/16 20:00 Nasal Cannula 2.0 Intake and Output 11/02/16 11/02/16 11/03/16 15:00 23:00 07:00 Intake Total 730 ml 550 ml Output Total 90 ml 1525 ml 1750 ml Balance -90 ml -795 ml -1200 ml Exam Constitutional: alert, oriented, well developed Psych: nl mood/affect Head: atraumatic Eyes: EOMI, PERRL, nl sclera ENMT: nl external ears & nose Neck: non-tender Respiratory: clear to auscultation Cardiovascular: nl pulses Gastrointestinal: other (abdominal inscion- some discahrge), soft Musculoskeletal: nl extremities to inspection Extremities: normal pulses Neurological: nl mental status, nl speech Skin: nl turgor Lymph: nontender Results Result Diagram: 11/03/16 0547 11/03/16 0545 Results 24 hrs Laboratory Tests Test 11/03/16 05:45 11/03/16 05:47 Sodium Level 131 L Potassium Level 4.0 Chloride Level 104 Carbon Dioxide Level 27 Anion Gap 4 L Blood Urea Nitrogen 8 Creatinine 0.60 Glucose Level 91 Calcium Level 7.4 L White Blood Count 0.8 #L Red Blood Count 3.19 L Hemoglobin 9.0 L Hematocrit 27.7 L Mean Corpuscular Volume 86.8 Mean Corpuscular Hemoglobin 28.2 L Mean Corpuscular Hemoglobin Concent 32.5 Red Cell Distribution Width 13.0 Platelet Count 291 # Mean Platelet Volume 10.0 Neutrophils % 36.0 L Lymphocytes % 54.0 H Monocytes % 8.0 Eosinophils % 2.0 Basophils % Neutrophils # 0.3 L Lymphocytes # 0.4 L Monocytes # 0.1 L Eosinophils # 0.0 Basophils # Medications Medications Current Medications Potassium Cl/ Dextrose/Lact Ringer's (D5-Lr + KCl 20 Meq) 1,000 ml @ 30 mls/hr Q24H IV Last administered on 11/02/16 22:26; Admin Dose 30 MLS/HR; Start at 17:00 Dimethicone (Blistex Lip [place]) 1 applic Q2H PRN TOP CHAPPED LIPS; Start at 09:30 Diphenhydramine HCl (Benadryl) 25 mg Q6H PRN IV ITCHING Last administered on 06:34; Admin Dose 25 MG; Start 10/11/16 at 16:19 Hydralazine HCl 10 mg 10 mg Q4H PRN IV ELEVATED BLOOD PRESSURE; Start 10/15/16 at 10:00 Acetaminophen (Ofirmev 1000mg/ 100ml Iv) 100 ml @ 400 mls/hr Q6H PRN IVPB HEADACHE Last administered on 10/27/16 09:48; Admin Dose 400 MLS/HR; Start at 10:00 IV Flush (NS 10 ml) 10 ml PRN PRN IV FLUSH LINE Last administered on 10/22/16 20:40; Admin Dose 10 ML; Start 10/16/16 at 11:00 Tramadol HCl (Ultram) 50 mg Q6H PRN PO PAIN LEVEL 6-10 Last administered on 10/29 01:56; Admin Dose 50 MG; Start 10/19/16 at 23:00 Hydromorphone HCl (Dilaudid) 0.5 mg Q8 PRN IV PAIN Last administered on 03:04; Admin Dose 0.5 MG; Start 10/23/16 at 06:00 Pantoprazole 40 mg 40 mg DAILY@06 PO Last administered on 11/03/16 05:38; Admin Dose 40 MG; Start 10/25/16 at 06:00 Ondansetron HCl/ Dextrose (Zofran Inj/D5W) 54 ml @ 108 mls/hr Q8H PRN IV NAUSEA AND/OR VOMITING; Start 10/24/16 at 17:30 Prochlorperazine (Compazine Inj) 10 mg Q8H PRN IV NAUSEA AND/OR VOMITING Last administered on 10/30/16 23:25; Admin Dose 10 MG; Start 10/24/16 at 17:30 Hydrocortisone (Solu-Cortef) 100 mg PRN PRN IV ALLERGIC REACTION; Start at 22:00 Diphenhydramine HCl 50 mg 50 mg PRN PRN IV ALLERGIC REACTION; Start 10/25/16 at 22:00 Ceftriaxone Sodium (Rocephin) 50 ml @ 100 mls/hr Q24H IVPB Last administered on 11/02/16 17:23; Admin Dose 100 MLS/HR; Start 10/25/16 at 17:00 Bisacodyl (Dulcolax) 5 mg DAILY PRN PO CONSTIPATION Last administered on 10:31; Admin Dose 5 MG; Start 10/28/16 at 10:00 Ondansetron HCl (Zofran Inj) 4 mg Q6H PRN IV NAUSEA AND/OR VOMITING Last administered on 10/30/16 18:05; Admin Dose 4 MG; Start 10/29/16 at 09:00 Metoprolol Tartrate (Lopressor) 5 mg Q4H PRN IV HR>110 Hold SBP<100; Start 10/29 at 18:00 Metoclopramide HCl (Reglan) 10 mg Q6H PRN IV NAUSEA; Start 10/31/16 at 09:00 Atenolol (Tenormin) 12.5 mg DAILY PO Last administered on 11/03/16t 09:26; Admin Dose 12.5 MG; Start 11/03/16 at 09:00 Filgrastim (Neupogen) 480 mcg DAILY@17 SC ; Start 11/03/16 at 17:00 LATRICIA GABRIEL November 03, 2016 12:51
--- NOTE | 2016-11-03 14:53 | HKNOTE ---
DATE OF SERVICE: 11/03/2016 VISIT NOTE HISTORY OF PRESENT ILLNESS: Nicole is a 56-year-old lady with a diagnosis of poorly differentiated endometrial carcinoma, stage IV. She is on chemotherapy with ifosfamide and Taxol. The patient has severe pancytopenia. She is being monitored closely. She is walking with minimal help and is eati ng fair. For past medical history and review of systems, please see the H and P. PHYSICAL EXAMINATION: GENERAL: Shows a moderately built female, who is alert, oriented, cooperative. She is afebrile. ENT, HEART AND LUNGS: Unremarkable. ABDOMEN: Soft. Has a healing surgical scar. EXTERNAL GENITALIA: Normal. EXTREMITIES: Showed no edema, clubbing or cyanosis. LYMPH NODES: No peripheral lymphadenopathy. LABORATORY DATA: Her CBC today shows WBC only 800, with hemoglobin 9 and a platelet count of 291,00 0. Her PT INR is 1.1. CMP is unremarkable, with a creatinine of 0.60. IMPRESSION: 1. 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 2. Severe neutropenia, probably secondary to chemotherapy, patient on Neupogen. PLAN: The patient should continue on Neupogen. We need to monitor closely for any fevers, but she is already on ceftriaxone. If she has a fever, she will need repeat blood and urine cultures. We s venita continue her Neupogen. Dictated By: TAWNYA DE SOUZA/SHELLY Conf#: [id number] DID#: [id number]
[2016-11-03] MEDS: CEFTRIAXONE 1 GM/50 ML (PMX) 50 ML IVPB SCH (16:26)
[2016-11-03] MEDS: D5-LR + KCL 20 MEQ 1,000 ML IV SCH (16:26)
[2016-11-03] MEDS: FILGRASTIM 480 MCG INJ SC SCH (17:26)
[2016-11-03] MEDS: ATORVASTATIN 20 MG TAB PO SCH (20:20)
[2016-11-04] VITALS (11 sets, daily range): BP systolic 93–107; BP diastolic 51–67; PULSE 67–90; RESP 15–18
[2016-11-04] MEDS: HYDROmorphONE 1 MG/ML SYG IV PRN (01:26)
[2016-11-04] MEDS: PANTOPRAZOLE (EC) 40 MG TAB PO SCH (05:12)
[2016-11-04 07:12] LABS: ADD SCAN DIFF NO
[2016-11-04 07:19] LABS: ABNORMAL IP MESSAGE 1; HEMATOCRIT 29.6 % (37.0-47.0); HEMOGLOBIN 9.5 g/dl (12.0-16.0); MEAN CORPUSCULAR HEMOGLOBIN 27.8 pg (29.0-33.0); MEAN CORPUSCULAR HGB CONC 32.1 g/dl (32.0-37.0); MEAN CORPUSCULAR VOLUME 86.5 fl (82.0-101.0); MEAN PLATELET VOLUME 9.8 fl (7.4-10.4); PLATELET COUNT 367 10^3/UL (140-415); RED BLOOD COUNT 3.42 10^6/ul (4.20-5.40); RED CELL DISTRIBUTION WIDTH 13.2 % (11.5-14.5); WHITE BLOOD COUNT 1.7 10^3/ul (4.8-10.8)
[2016-11-04 07:32] LABS: CALCIUM 7.6 mg/dl (8.4-10.2); CREATININE 0.64 mg/dl (0.44-1.00); POTASSIUM 4.1 mmol/L (3.5-5.1)
[2016-11-04] MEDS: ATENOLOL 25 MG TAB PO SCH (09:22)
[2016-11-04 10:08] LABS: POLYCHROMASIA OCCASIONAL
[2016-11-04 10:09] LABS: TOXIC GRANULATION 1+
[2016-11-04 10:11] LABS: LYMPHOCYTES # 0.5 10^3/ul (0.8-2.9); MONOCYTE # 0.7 10^3/ul (0.3-0.9); MYELOCYTES # 0.1; NEUTROPHIL # 0.2 10^3/ul (1.6-7.5)
--- NOTE | 2016-11-04 13:17 | CONS ---
Date/Time of Note Date/Time of Note DATE: 11/04/16 TIME: 13:16 Assessment/Plan Assessment/Plan Additional Assessment/Plan 1. Tachyarrhythmia, most consistent with sinus tachycardia-overall improved with HR in high 90's to low 100 - stable on tele now - NOW IMPROVED 2. History of hypertension with stable blood pressures at this time- well rx 3. Abnormal electrocardiogram with right axis deviation and nonspecific ST-T abnormalities, assess for acute coronary syndrome. 4. History of dyslipidemia. 5. Endometrial cancer status post 1 cycle of chemotherapy with Taxol and ifosfamide- bank accountant team follows 6. Leukocytosis, severe, assess for infection. 7. Hyponatremia-ongoing- RENAL TEAM FOLLOWS 8. Anemia.- H/H stable - no bleeding now 9.Nausea Consultation Date/Type/Reason Admit Date/Time Oct 10, 2016 at 09:46 Initial Consult Date 10/12/16 Type of Consultation: Oncology Referring Provider: ARLENE CHOWDARY MD 24 HR Interval Summary Free Text/Dictation NO acute cahnge - HR better controlled - not in CH[facility] by exam ROS: No fever, no chills, no nausea, no vomiting, no diarrhea/constipation No recent weight changes No chest pain, no PND, no orthopnea No dizziness, blurred vision No thirst, no heat or cold intolerance Exam/Review of Systems Vital Signs Vitals Vital Signs Date Time Temp Pulse Resp B/P Pulse Ox O2 Delivery O2 Flow Rate FiO2 11/04/16 12:14 67 11/04/16 11:54 98.0 18 94/62 100 11/03/16 20:30 Nasal Cannula 11/02/16 20:00 2.0 Intake and Output 11/03/16 11/03/16 11/04/16 15:00 23:00 07:00 Intake Total 1410 ml 360 ml Output Total 100 ml 1400 ml 1275 ml Balance -100 ml 10 ml -915 ml Exam General: WN/WD/NAD, AOx 3 HEENT: Unicetric/atraumatic/EOMI (follows commands) NECK: JVD elevated, no thyromegaly Lymph: no lymphadenopathy HEART: regular with no S3, II/ systolic murmur at apex LUNGS: Coarse sounds ABD: soft, NT, ND, +BS : Intact Neuro: non focal SKIN: chronic changes EXT: trace edema Results Result Diagram: 11/04/16 0552 11/04/16 0552 Results 24 hrs Laboratory Tests Test 11/04/16 05:52 White Blood Count 1.7 #L Red Blood Count 3.42 L Hemoglobin 9.5 L Hematocrit 29.6 L Mean Corpuscular Volume 86.5 Mean Corpuscular Hemoglobin 27.8 L Mean Corpuscular Hemoglobin Concent 32.1 Red Cell Distribution Width 13.2 Platelet Count 367 # Mean Platelet Volume 9.8 Neutrophils % 13.0 L Band Neutrophils % 6.0 H Lymphocytes % 29.0 Eosinophils % 1.0 Basophils % 1.0 Metamyelocytes % 5.0 H Myelocytes % 3.0 H Nucleated Red Blood Cells % 3.0 H Neutrophils # 0.2 L Lymphocytes # 0.5 L Monocytes # 0.7 Eosinophils # 0.0 Basophils # 0.0 Metamyelocytes # 0.1 Myelocytes # 0.1 Differential Comment MANUAL DIFF Toxic Granulation 1+ Large Platelets FEW Giant Platelets FEW Polychromasia OCCASIONAL Sodium Level 130 L Potassium Level 4.1 Chloride Level 102 Carbon Dioxide Level 27 Anion Gap 5 L Blood Urea Nitrogen 8 Creatinine 0.64 Glucose Level 99 Calcium Level 7.6 L Medications Medications Current Medications Dimethicone (Blistex Lip [place]) 1 applic Q2H PRN TOP CHAPPED LIPS; Start at 09:30 Diphenhydramine HCl (Benadryl) 25 mg Q6H PRN IV ITCHING Last administered on 06:34; Admin Dose 25 MG; Start 10/11/16 at 16:19 Hydralazine HCl 10 mg 10 mg Q4H PRN IV ELEVATED BLOOD PRESSURE; Start 10/15/16 at 10:00 Acetaminophen (Ofirmev 1000mg/ 100ml Iv) 100 ml @ 400 mls/hr Q6H PRN IVPB HEADACHE Last administered on 10/27/16 09:48; Admin Dose 400 MLS/HR; Start at 10:00 IV Flush (NS 10 ml) 10 ml PRN PRN IV FLUSH LINE Last administered on 10/22/16 20:40; Admin Dose 10 ML; Start 10/16/16 at 11:00 Tramadol HCl (Ultram) 50 mg Q6H PRN PO PAIN LEVEL 6-10 Last administered on 10/29 01:56; Admin Dose 50 MG; Start 10/19/16 at 23:00 Hydromorphone HCl (Dilaudid) 0.5 mg Q8 PRN IV PAIN Last administered on 01:26; Admin Dose 0.5 MG; Start 10/23/16 at 06:00 Pantoprazole 40 mg 40 mg DAILY@06 PO Last administered on 11/04/16 05:12; Admin Dose 40 MG; Start 10/25/16 at 06:00 Ondansetron HCl/ Dextrose (Zofran Inj/D5W) 54 ml @ 108 mls/hr Q8H PRN IV NAUSEA AND/OR VOMITING; Start 10/24/16 at 17:30 Prochlorperazine (Compazine Inj) 10 mg Q8H PRN IV NAUSEA AND/OR VOMITING Last administered on 10/30/16 23:25; Admin Dose 10 MG; Start 10/24/16 at 17:30 Hydrocortisone (Solu-Cortef) 100 mg PRN PRN IV ALLERGIC REACTION; Start at 22:00 Diphenhydramine HCl 50 mg 50 mg PRN PRN IV ALLERGIC REACTION; Start 10/25/16 at 22:00 Ceftriaxone Sodium (Rocephin) 50 ml @ 100 mls/hr Q24H IVPB Last administered on 11/03/16 16:26; Admin Dose 100 MLS/HR; Start 10/25/16 at 17:00 Bisacodyl (Dulcolax) 5 mg DAILY PRN PO CONSTIPATION Last administered on 10:31; Admin Dose 5 MG; Start 10/28/16 at 10:00 Ondansetron HCl (Zofran Inj) 4 mg Q6H PRN IV NAUSEA AND/OR VOMITING Last administered on 10/30/16 18:05; Admin Dose 4 MG; Start 10/29/16 at 09:00 Metoprolol Tartrate (Lopressor) 5 mg Q4H PRN IV HR>110 Hold SBP<100; Start 10/29 at 18:00 Metoclopramide HCl (Reglan) 10 mg Q6H PRN IV NAUSEA; Start 10/31/16 at 09:00 Atenolol (Tenormin) 12.5 mg DAILY PO Last administered on 11/04/16 09:22; Admin Dose 12.5 MG; Start 11/03/16 at 09:00 Filgrastim (Neupogen) 480 mcg DAILY@17 SC Last administered on 11/03/16 17:26; Admin Dose 480 MCG; Start 11/03/16 at 17:00 Atorvastatin Calcium 20 mg 20 mg HS PO Last administered on 11/03/16 20:20; Admin Dose 20 MG; Start 11/03/16 at 21:00 Potassium Chloride/Dextrose/ Sod Cl (D5-NS + KCl 20 Meq) 1,000 ml @ 60 mls/hr [id number] IV ; Start 11/04/16 at 13:30; Status JOHNNA RAMOS MD November 04, 2016 13:17
--- NOTE | 2016-11-04 13:47 | PN ---
Date/Time of Note Date/Time of Note DATE: 11/04/16 TIME: 13:39 Assessment/Plan VTE Prophylaxis VTE Prophylaxis Intervention: other Lines/Catheters [facility] Type ([facility] PICC Line Central line still needed: Yes Urinary Cath still in place: No Reason Cath still needed: urinary retention Assessment/Plan Assessment/Plan - Neutropenia - per hematology - on neutropenic precautions - Hyponatremia - monitor BMP - nephrology consult- Dr Cabrales notified - Anemia - ,monitor H/H . Transfuse if needed, - Possible wound infection- discharge around inscion site- staff to notify Dr Bueno. - Stage IV endometrial cancer, status post surgical procedure with CYNDI/BSO and recto-sigmoid en-bloc with low anastomosis by Dr. Bueno on 10/11. Path report showed metastatic carcinosarcoma. Started on chemotherapy. per in oncology consultation. - Tachycardia, Dr. Oglesby is asked to see patient in cardiology consultation. - Hypertension. Continue hydralazine as needed for systolic blood pressure above 170. - Dyslipidemia. - start on Atorvastatin - Gastritis. Continue Protonix. Further recommendations based on clinical course. Plan of care discussed with Dr. Richardson. Subjective 24 Hr Interval Summary Free Text/Dictation resting in bed, seems comfortable, afebrile, tolerating diet, dw staff- Constitutional: requiring IVF, requiring O2 Eyes: no complaints ENT: no complaints Respiratory: no complaints Cardiovascular: no complaints Gastrointestinal: pain Genitourinary: no complaints Musculoskeletal: no complaints Skin: no complaints Neurologic: no complaints Endocrine: no complaints Lymphatic: no complaints Psychological: no complaints Immunologic: no complaints Exam/Review of Systems Vital Signs Vitals Vital Signs Date Time Temp Pulse Resp B/P Pulse Ox O2 Delivery O2 Flow Rate FiO2 11/04/16 12:14 67 11/04/16 11:54 98.0 18 94/62 100 11/03/16 20:30 Nasal Cannula 11/02/16 20:00 2.0 Intake and Output 11/03/16 11/03/16 11/04/16 15:00 23:00 07:00 Intake Total 1410 ml 360 ml Output Total 100 ml 1400 ml 1275 ml Balance -100 ml 10 ml -915 ml Exam Constitutional: alert, oriented, well developed Psych: no complaints Head: atraumatic ENMT: nl external ears & nose Neck: non-tender Respiratory: clear to auscultation Cardiovascular: nl pulses Gastrointestinal: non-tender, soft Musculoskeletal: nl extremities to inspection Extremities: normal pulses Neurological: nl mental status Skin: rash or lesions Lymph: nontender Results Result Diagram: 11/04/16 0552 11/04/16 0552 Results 24 hrs Laboratory Tests Test 11/04/16 05:52 White Blood Count 1.7 #L Red Blood Count 3.42 L Hemoglobin 9.5 L Hematocrit 29.6 L Mean Corpuscular Volume 86.5 Mean Corpuscular Hemoglobin 27.8 L Mean Corpuscular Hemoglobin Concent 32.1 Red Cell Distribution Width 13.2 Platelet Count 367 # Mean Platelet Volume 9.8 Neutrophils % 13.0 L Band Neutrophils % 6.0 H Lymphocytes % 29.0 Eosinophils % 1.0 Basophils % 1.0 Metamyelocytes % 5.0 H Myelocytes % 3.0 H Nucleated Red Blood Cells % 3.0 H Neutrophils # 0.2 L Lymphocytes # 0.5 L Monocytes # 0.7 Eosinophils # 0.0 Basophils # 0.0 Metamyelocytes # 0.1 Myelocytes # 0.1 Differential Comment MANUAL DIFF Toxic Granulation 1+ Large Platelets FEW Giant Platelets FEW Polychromasia OCCASIONAL Sodium Level 130 L Potassium Level 4.1 Chloride Level 102 Carbon Dioxide Level 27 Anion Gap 5 L Blood Urea Nitrogen 8 Creatinine 0.64 Glucose Level 99 Calcium Level 7.6 L Medications Medications Current Medications Dimethicone (Blistex Lip [place]) 1 applic Q2H PRN TOP CHAPPED LIPS; Start at 09:30 Diphenhydramine HCl (Benadryl) 25 mg Q6H PRN IV ITCHING Last administered on 06:34; Admin Dose 25 MG; Start 10/11/16 at 16:19 Hydralazine HCl 10 mg 10 mg Q4H PRN IV ELEVATED BLOOD PRESSURE; Start 10/15/16 at 10:00 Acetaminophen (Ofirmev 1000mg/ 100ml Iv) 100 ml @ 400 mls/hr Q6H PRN IVPB HEADACHE Last administered on 10/27/16 09:48; Admin Dose 400 MLS/HR; Start at 10:00 IV Flush (NS 10 ml) 10 ml PRN PRN IV FLUSH LINE Last administered on 10/22/16 20:40; Admin Dose 10 ML; Start 10/16/16 at 11:00 Tramadol HCl (Ultram) 50 mg Q6H PRN PO PAIN LEVEL 6-10 Last administered on 10/29 01:56; Admin Dose 50 MG; Start 10/19/16 at 23:00 Hydromorphone HCl (Dilaudid) 0.5 mg Q8 PRN IV PAIN Last administered on 01:26; Admin Dose 0.5 MG; Start 10/23/16 at 06:00 Pantoprazole 40 mg 40 mg DAILY@06 PO Last administered on 11/04/16 05:12; Admin Dose 40 MG; Start 10/25/16 at 06:00 Ondansetron HCl/ Dextrose (Zofran Inj/D5W) 54 ml @ 108 mls/hr Q8H PRN IV NAUSEA AND/OR VOMITING; Start 10/24/16 at 17:30 Prochlorperazine (Compazine Inj) 10 mg Q8H PRN IV NAUSEA AND/OR VOMITING Last administered on 10/30/16 23:25; Admin Dose 10 MG; Start 10/24/16 at 17:30 Hydrocortisone (Solu-Cortef) 100 mg PRN PRN IV ALLERGIC REACTION; Start at 22:00 Diphenhydramine HCl 50 mg 50 mg PRN PRN IV ALLERGIC REACTION; Start 10/25/16 at 22:00 Ceftriaxone Sodium (Rocephin) 50 ml @ 100 mls/hr Q24H IVPB Last administered on 11/03/16 16:26; Admin Dose 100 MLS/HR; Start 10/25/16 at 17:00 Bisacodyl (Dulcolax) 5 mg DAILY PRN PO CONSTIPATION Last administered on 10:31; Admin Dose 5 MG; Start 10/28/16 at 10:00 Ondansetron HCl (Zofran Inj) 4 mg Q6H PRN IV NAUSEA AND/OR VOMITING Last administered on 10/30/16 18:05; Admin Dose 4 MG; Start 10/29/16 at 09:00 Metoprolol Tartrate (Lopressor) 5 mg Q4H PRN IV HR>110 Hold SBP<100; Start 10/29 at 18:00 Metoclopramide HCl (Reglan) 10 mg Q6H PRN IV NAUSEA; Start 10/31/16 at 09:00 Atenolol (Tenormin) 12.5 mg DAILY PO Last administered on 11/04/16 09:22; Admin Dose 12.5 MG; Start 11/03/16 at 09:00 Filgrastim (Neupogen) 480 mcg DAILY@17 SC Last administered on 11/03/16 17:26; Admin Dose 480 MCG; Start 11/03/16 at 17:00 Atorvastatin Calcium 20 mg 20 mg HS PO Last administered on 11/03/16 20:20; Admin Dose 20 MG; Start 11/03/16 at 21:00 Potassium Chloride/Dextrose/ Sod Cl 1,000 ml @ 60 mls/hr [id number] IV ; Start 11/04/16 at 13:30; Status UNV Albumin Human (Albumin Human 25%) 100 ml @ 100 mls/hr Q1H IV ; Start 11/04/16 at 13:30; Stop 11/04/16 at 15:29; Status UNV LATRICIA GABRIEL November 04, 2016 13:47
--- NOTE | 2016-11-04 13:57 | CONS ---
DATE OF ADMISSION: 10/10/2016 DATE OF CONSULTATION: 11/04/2016 REFERRING PHYSICIAN: Dr. Ger Richardson. TYPE OF CONSULTATION: Nephrology. REASON FOR CONSULTATION: Hyponatremia. HISTORY OF PRESENT ILLNESS: This is a 56-year-old female with a recent diagnosis of stage IV endome trial cancer by endometrial biopsy on 09/17/2016. She underwent CYNDI/BSO and rectosigmoid en bloc wi th low anastomosis by Dr. Bueno on 10/11/2016. 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 The patient underwent cycle 1 ifosfamide /Taxol on 10/25/2016. She tolerated it very well. The patient slowly gradually noted to have her sodium which had droppe d down normal on admission until 10/27/2016. She received chemotherapy on 10/25/2016. She received 1 cycle of chemotherapy on 10/25/2016 and she is noted to have her sodium drop down to 134 on 10/28. Since then, her sodium has been gradually dropped down to 130 today and renal has been consu lted for hyponatremia and possible concern about mildly low albumin causing generalized swelling and fluid overload. At the time of my evaluation, the patient denies any symptoms of chest pain, palpitation, headache, dizziness, blurry vision, constipation, diarrhea, dysuria, though she still has hyponatremia. Cardi ologist and oncologist has been following the patient and the patient is currently getting chemother apy. Initially she had a systolic blood pressure which was running on the higher side and now it ru nning in the low systolic 90s. The patient is currently on IV fluids D5-LR with KCl to run at 30 mL hour and also getting IV antibiotics, ceftriaxone. REVIEW OF SYSTEMS: Positive for chest pain. Positive for leg pain, leg edema and other review of s ystems has been obtained and is negative except what is mentioned in the history of present illness. PAST MEDICAL HISTORY: Notable for hypertension, hyperlipidemia, history of gastritis, history of re cent diagnosis for stage IV endometrial cancer, status post CYNDI/BSO and currently getting the chemot herapy. PAST SURGICAL HISTORY: History of cholecystectomy, history of left breast biopsy, recent history of CYNDI/BSO and rectosigmoid en bloc with low anastomosis by [facility] on 10/11/2016. SOCIAL HISTORY: No smoking, alcohol or recreational drug use. FAMILY HISTORY: No family history of chronic kidney disease, coronary artery disease, or stroke. PHYSICAL EXAMINATION: VITAL SIGNS: Temperature 98, heart rate 74, respirations 16, blood pressure 87/51, saturation 99% o n room air. GENERAL: Awake, alert, mild to moderate distress due to the pain and hypotension. HEENT: Pupils equal, round, reactive to light and accommodation. Extraocular muscles are intact. No scleral icterus. NECK: Supple, no JVD, no lymphadenopathy. LUNGS: With decreased breath sounds at both lung bases. No crackles, no wheezes. HEART: S1, S2, with regular rhythm, no murmur. ABDOMEN: Soft, nontender, nondistended. Bowel sounds are present. EXTREMITIES: No clubbing, cyanosis, or edema. NEUROLOGICAL: Nonfocal, intact. PSYCHIATRIC: Appropriate affect and mood. LABORATORY DATA/DIAGNOSTIC IMAGIN. Sodium 130, potassium 4.1, chloride 102, bicarbonate 27, BUN 8, creatinine 0.6, glucose 99, calc ium 7.6, albumin 1.9. PT 14.2, PTT 29.9, INR 1.1. WBC 1.7, hemoglobin 9.5, platelet count 367. Ur inalysis which was done on 10/28/2016, no evidence of any infections but it shows a trace protein. 2. CT abdomen and pelvis with contrast done on 10/29/2016 shows kidneys are normal in size with a s ymmetric enhancement. There is no renal mass identified. There is moderate right and mild left-julia ed hydronephrosis from her endometrial cancer. IMPRESSION: This is a 56-year-old female who has been admitted for endometrial cancer stage IV, sta tus post CYNDI/BSO with antimicrobial en bloc resection and low anastomosis by [facility]. The patient has be en getting chemotherapy. She received day 1 cycle, she received cycle 1 day #8 of ifosfamide and Ta xol on 10/25/2016. She tolerated it very well, but the patient has slowly, gradually developed hypo natremia and renal has been consulted for hyponatremia. 1. Hyponatremia, likely secondary to hypovolemic hyponatremia, but due to the patient receiving ifo sfamide recently, I would like to rule out renal tubular acidosis and ____ syndrome. 2. Hypoalbuminemia with albumin level of 1.9. 3. Stage IV endometrial cancer status post surgery, CYNDI/BSO with en bloc resection and low anastomo sis. Currently, received cycle 1 day #8 of chemotherapy with ifosfamide. 4. History of hypertension. 5. History of hyperlipidemia. 6. History of gastritis. PLAN: 1. Thank you, Dr. Richardson, for this consultation. The sodium has been dropping down and also she is becoming hypotensive, so I will start D5-LR and start her on D5-NS with KCl 20 mEq to run at 40 m L per hour. 2. I will give the patient albumin due to her hypoalbuminemia and consider IV fluids ongoing 3. Urine studies including urine sodium, urine protein, urine creatinine ratio, urine eosinophils, high uric acid and urine chloride has been ordered. 4. Currently her creatinine and bicarbonate has been normal, but due to her chemotherapy with ifosf amide, I would like to watch her for renal tubular acidosis and acute kidney injury. 5. The patient is currently seen in the telemetry floor and she will be followed up along with the primary care service, oncology service and the [facility] service. Dictated By: DIANA COLLIER MD, KP/SHELLY Conf#: [id number] DID#: [id number]
[2016-11-04] MEDS: ALBUMIN HUMAN 25% 100 ML IV SCH ×2 (14:46→15:59)
[2016-11-04] MEDS: D5-NS + KCL 20 MEQ 1,000 ML IV SCH (14:46)
[2016-11-04] MEDS: FILGRASTIM 480 MCG INJ SC SCH (17:19)
[2016-11-04] MEDS: CEFTRIAXONE 1 GM/50 ML (PMX) 50 ML IVPB SCH (17:19)
--- NOTE | 2016-11-04 18:48 | PN ---
DATE: 11/04/2016 HISTORY OF PRESENT ILLNESS: Ms. Gan a 56-year-old [place] speaking lady with a history of stag e IV, poorly differentiated adenocarcinoma of the endometrium on chemotherapy. She has severe pancy topenia. She is slowly improving and walking with minimal help. PHYSICAL EXAMINATION: GENERAL: Shows a moderately built female in no distress. VITAL SIGNS: Okay and she is afebrile. EARS, NOSE, THROAT, HEART, AND LUNGS: Normal except for mild sinus tachycardia. ABDOMEN: Soft. Has healing surgical scar. EXTREMITIES: Showed no edema. SKIN: Shows no rashes or petechiae. LABORATORY DATA: Her CBC now shows WBC improved to 1700 still with only 13% neutrophils and 6% band s. Her hemoglobin is 9.5 and platelets are normal. Her BMP is unremarkable except for sodium is sl ightly low at 130. IMPRESSION: 1. Poorly differentiated adenocarcinoma of the uterus, stage IV, on chemotherapy. 2. Severe pancytopenia secondary to chemotherapy. The patient on Neupogen. PLAN: We should continue the Neupogen and monitor her for fever. Her vital signs are stable now. Of course, if she has a fever, she should get repeat blood and urine cultures and chest x-ray. The patient appears to be slowly improving. Dictated By: TAWNYA PONCE MD PC/NTS Conf#: [id number] DID#: [id number] CC: NUPUR RODRÍGUEZ MD;*EndCC*
[2016-11-04 19:59] LABS: PROTEIN/CREAT RATIO 1.73 RATIO
[2016-11-04] MEDS: ATORVASTATIN 20 MG TAB PO SCH (20:21)
[2016-11-05] VITALS (11 sets, daily range): BP systolic 100–116; BP diastolic 56–81; PULSE 80–95; RESP 15–18
[2016-11-05] MEDS: PANTOPRAZOLE (EC) 40 MG TAB PO SCH (05:27)
[2016-11-05] MEDS: D5-NS + KCL 20 MEQ 1,000 ML IV SCH ×2 (05:28→22:24)
[2016-11-05 07:27] LABS: ADD SCAN DIFF NO
[2016-11-05 07:35] LABS: ABNORMAL IP MESSAGE 1; BASOPHIL # 0.1 10^3/ul (0.0-0.1); BASOPHILS % 0.2 % (0.0-2.0); EOSINOPHILS % 0.1 % (0.0-7.0); HEMATOCRIT 28.8 % (37.0-47.0); HEMOGLOBIN 8.9 g/dl (12.0-16.0); LYMPHOCYTES # 0.9 10^3/ul (0.8-2.9); LYMPHOCYTES % 4.6 % (15.0-51.0); MEAN CORPUSCULAR HEMOGLOBIN 27.6 pg (29.0-33.0); MEAN CORPUSCULAR HGB CONC 30.9 g/dl (32.0-37.0); MEAN CORPUSCULAR VOLUME 89.2 fl (82.0-101.0); MEAN PLATELET VOLUME 9.8 fl (7.4-10.4); MONOCYTE # 1.9 10^3/ul (0.3-0.9); MONOCYTES % 9.5 % (0.0-11.0); NEUTROPHILS % 78.6 % (39.0-77.0); NUCLEATED RED BLOOD CELLS # 0.1 10^3/ul (0.0-0.0); NUCLEATED RED BLOOD CELLS% 0.4 /100WBC (0.0-0.0); PLATELET COUNT 325 10^3/UL (140-415); RED BLOOD COUNT 3.23 10^6/ul (4.20-5.40); RED CELL DISTRIBUTION WIDTH 13.6 % (11.5-14.5); WHITE BLOOD COUNT 20.4 10^3/ul (4.8-10.8)
[2016-11-05 07:51] LABS: URIC ACID 2.7 mg/dl (3.1-7.9)
[2016-11-05 07:52] LABS: ALBUMIN 2.2 g/dl (3.3-4.9); ALBUMIN/GLOBULIN RATIO 1.22; BILIRUBIN,INDIRECT 0.2 mg/dl (0-1.1); BILIRUBIN,TOTAL 0.2 mg/dl (0.2-1.3); CALCIUM 7.8 mg/dl (8.4-10.2); CREATININE 0.54 mg/dl (0.44-1.00); POTASSIUM 4.3 mmol/L (3.5-5.1)
[2016-11-05] MEDS: ATENOLOL 25 MG TAB PO SCH (09:33)
[2016-11-05] MEDS: [UNRECOGNIZED DRUG - REMARK] XX SCH ×3 (10:00→22:00)
--- NOTE | 2016-11-05 11:54 | CONS ---
Date/Time of Note Date/Time of Note DATE: 11/05/16 TIME: 11:52 Assessment/Plan Assessment/Plan Chief Complaint/Hosp Course IMPRESSION: 1. Tachyarrhythmia, most consistent with sinus tachycardia-overall improved with HR in high 90's to low 100 2. History of hypertension with stable blood pressures at this time. 3. Abnormal electrocardiogram with right axis deviation and nonspecific ST-T abnormalities, assess for acute coronary syndrome. 4. History of dyslipidemia. 5. Endometrial cancer status post 1 cycle of chemotherapy with Taxol and ifosfamide. 6. Leukocytosis, severe, assess for infection. 7. Hyponatremia-ongoing 8. Anemia. 9.Nausea Recc: -Tele -serial ecg's -Atenolol as tolerated -Follow HR/BP closely -Continue abx's and f/u cx data -? hold neupogen given significant increase in WBC Problems: Consultation Date/Type/Reason Admit Date/Time Oct 10, 2016 at 09:46 Initial Consult Date 10/12/16 Type of Consultation: Cardiology Reason for Consultation tachycardia Referring Provider: ARLENE CHOWDARY MD Exam/Review of Systems Vital Signs Vitals Vital Signs Date Time Temp Pulse Resp B/P Pulse Ox O2 Delivery O2 Flow Rate FiO2 11/05/16 11:34 98.2 89 16 110/59 98 11/03/16 20:30 Nasal Cannula 11/02/16 20:00 2.0 Intake and Output 11/04/16 11/04/16 11/05/16 15:00 23:00 07:00 Intake Total 230 ml 1110 ml 500 ml Output Total 665 ml 125 ml Balance -435 ml 985 ml 500 ml Exam Review of Systems: CONSTITUTIONAL: No fevers, chills. PULMONARY: No sob CARDIOVASCULAR: No chest pain/palpitations GASTROINTESTINAL: No nausea/vomiting. GENITOURINARY: No hematuria/dysuria. MUSCULOSKELETAL: No myagias/arthalgias. PSYCHIATRIC: The patient denies depression. NEUROLOGIC: No weakness Constitutional: alert, oriented Psych: no complaints Head: normocephalic ENMT: mucosa pink and moist Neck: jvd (9 cm water), supple Respiratory: diminished breath sounds (at bases/B) Cardiovascular: regular rate and rhythm Gastrointestinal: non-tender, soft Musculoskeletal: muscle tone Extremities: normal pulses, pitting pedal edema (none) Neurological: other (No focal deficits) Results Result Diagram: 11/05/16 0610 11/05/16 0618 Results 24 hrs Laboratory Tests Test 11/04/16 17:25 11/05/16 06:10 11/05/16 06:18 Urine Random Creatinine 13.81 L Urine Random Sodium 38 Urine Protein/Creatinine Ratio 1.73 Urine Total Protein 24.0 H White Blood Count 20.4 #H Red Blood Count 3.23 L Hemoglobin 8.9 L Hematocrit 28.8 L Mean Corpuscular Volume 89.2 Mean Corpuscular Hemoglobin 27.6 L Mean Corpuscular Hemoglobin Concent 30.9 L Red Cell Distribution Width 13.6 Platelet Count 325 Mean Platelet Volume 9.8 Neutrophils % 78.6 H Lymphocytes % 4.6 L Monocytes % 9.5 Eosinophils % 0.1 Basophils % 0.2 Nucleated Red Blood Cells % 0.4 H Neutrophils # 16.0 H Lymphocytes # 0.9 Monocytes # 1.9 H Eosinophils # 0.0 Basophils # 0.1 Nucleated Red Blood Cells # 0.1 H Uric Acid 2.7 L B-Type Natriuretic Peptide 364 H Sodium Level 134 L Potassium Level 4.3 Chloride Level 106 Carbon Dioxide Level 26 Anion Gap 6 L Blood Urea Nitrogen 3 L Creatinine 0.54 Glucose Level 78 Calcium Level 7.8 L Total Bilirubin 0.2 Direct Bilirubin 0.00 Indirect Bilirubin 0.2 Aspartate Amino Transf (AST/SGOT) 52 H Alanine Aminotransferase (ALT/SGPT) 51 Alkaline Phosphatase 65 Total Protein 4.0 L Albumin 2.2 L Globulin 1.80 Albumin/Globulin Ratio 1.22 Medications Medications Current Medications Dimethicone (Blistex Lip [place]) 1 applic Q2H PRN TOP CHAPPED LIPS; Start at 09:30 Diphenhydramine HCl (Benadryl) 25 mg Q6H PRN IV ITCHING Last administered on 06:34; Admin Dose 25 MG; Start 10/11/16 at 16:19 Hydralazine HCl 10 mg 10 mg Q4H PRN IV ELEVATED BLOOD PRESSURE; Start 10/15/16 at 10:00 Acetaminophen (Ofirmev 1000mg/ 100ml Iv) 100 ml @ 400 mls/hr Q6H PRN IVPB HEADACHE Last administered on 10/27/16 09:48; Admin Dose 400 MLS/HR; Start at 10:00 IV Flush (NS 10 ml) 10 ml PRN PRN IV FLUSH LINE Last administered on 10/22/16 20:40; Admin Dose 10 ML; Start 10/16/16 at 11:00 Tramadol HCl (Ultram) 50 mg Q6H PRN PO PAIN LEVEL 6-10 Last administered on 10/29 01:56; Admin Dose 50 MG; Start 10/19/16 at 23:00 Hydromorphone HCl (Dilaudid) 0.5 mg Q8 PRN IV PAIN Last administered on 01:26; Admin Dose 0.5 MG; Start 10/23/16 at 06:00 Pantoprazole 40 mg 40 mg DAILY@06 PO Last administered on 11/05/16 05:27; Admin Dose 40 MG; Start 10/25/16 at 06:00 Ondansetron HCl/ Dextrose (Zofran Inj/D5W) 54 ml @ 108 mls/hr Q8H PRN IV NAUSEA AND/OR VOMITING; Start 10/24/16 at 17:30 Prochlorperazine (Compazine Inj) 10 mg Q8H PRN IV NAUSEA AND/OR VOMITING Last administered on 10/30/16 23:25; Admin Dose 10 MG; Start 10/24/16 at 17:30 Hydrocortisone (Solu-Cortef) 100 mg PRN PRN IV ALLERGIC REACTION; Start at 22:00 Diphenhydramine HCl 50 mg 50 mg PRN PRN IV ALLERGIC REACTION; Start 10/25/16 at 22:00 Ceftriaxone Sodium (Rocephin) 50 ml @ 100 mls/hr Q24H IVPB Last administered on 11/04/16 17:19; Admin Dose 100 MLS/HR; Start 10/25/16 at 17:00 Bisacodyl (Dulcolax) 5 mg DAILY PRN PO CONSTIPATION Last administered on 10:31; Admin Dose 5 MG; Start 10/28/16 at 10:00 Ondansetron HCl (Zofran Inj) 4 mg Q6H PRN IV NAUSEA AND/OR VOMITING Last administered on 10/30/16 18:05; Admin Dose 4 MG; Start 10/29/16 at 09:00 Metoprolol Tartrate (Lopressor) 5 mg Q4H PRN IV HR>110 Hold SBP<100; Start 10/29 at 18:00 Metoclopramide HCl (Reglan) 10 mg Q6H PRN IV NAUSEA; Start 10/31/16 at 09:00 Atenolol (Tenormin) 12.5 mg DAILY PO Last administered on 11/05/16 09:33; Admin Dose 12.5 MG; Start 11/03/16 at 09:00 Filgrastim (Neupogen) 480 mcg DAILY@17 SC Last administered on 11/04/16 17:19; Admin Dose 480 MCG; Start 11/03/16 at 17:00 Atorvastatin Calcium 20 mg 20 mg HS PO Last administered on 11/04/16 20:21; Admin Dose 20 MG; Start 11/03/16 at 21:00 Potassium Chloride/Dextrose/ Sod Cl (D5-NS + KCl 20 Meq) 1,000 ml @ 60 mls/hr [id number] IV Last administered on 11/05/16 05:28; Admin Dose 60 MLS/HR; Start 11/04/16 at 13:30 Miscellaneous Information 1 ea Q8 XX ; Start 11/05/16 at 10:00; Stop 11/05/16 at 23:45 BALDEMAR RIVERA November 05, 2016 11:54
--- NOTE | 2016-11-05 16:55 | CONS ---
Date/Time of Note Date/Time of Note DATE: 11/05/16 TIME: 16:53 Assessment/Plan Assessment/Plan Additional Assessment/Plan 1. Hyponatremia, likely secondary to hypovolemic hyponatremia, but due to the patient receiving ifosfamide recently, I would like to rule out renal tubular acidosis and ____ syndrome. 2. Hypoalbuminemia with albumin level of 1.9. 3. Stage IV endometrial cancer status post surgery, CYNDI/BSO with en bloc resection and low anastomosis. Currently, received cycle 1 day #8 of chemotherapy with ifosfamide. 4. History of hypertension. 5. History of hyperlipidemia. 6. History of gastritis. PLAN: pt IVF fluid changed to D5NS with KCL now Na improved to 134 doing ok Pain control continue current IVF will follow up Consultation Date/Type/Reason Admit Date/Time Oct 10, 2016 at 09:46 Initial Consult Date 10/12/16 Type of Consultation: Cardiology Referring Provider: ARLENE CHOWDARY MD 24 HR Interval Summary Free Text/Dictation Hb 8.9, Na imrpoved to 134 Exam/Review of Systems Vital Signs Vitals Vital Signs Date Time Temp Pulse Resp B/P Pulse Ox O2 Delivery O2 Flow Rate FiO2 11/05/16 16:03 80 11/05/16 15:08 98.0 16 106/65 97 11/03/16 20:30 Nasal Cannula 11/02/16 20:00 2.0 Intake and Output 11/04/16 11/04/16 11/05/16 15:00 23:00 07:00 Intake Total 230 ml 1110 ml 500 ml Output Total 665 ml 125 ml Balance -435 ml 985 ml 500 ml Exam GENERAL: Awake, alert, mild to moderate distress due to the pain and hypotension. HEENT: Pupils equal, round, reactive to light and accommodation. Extraocular muscles are intact. No scleral icterus. NECK: Supple, no JVD, no lymphadenopathy. LUNGS: With decreased breath sounds at both lung bases. No crackles, no wheezes. HEART: S1, S2, with regular rhythm, no murmur. ABDOMEN: Soft, nontender, nondistended. Bowel sounds are present. EXTREMITIES: No clubbing, cyanosis, or edema. NEUROLOGICAL: Nonfocal, intact. PSYCHIATRIC: Appropriate affect and mood. Results Result Diagram: 11/05/16 0610 11/05/16 0618 Results 24 hrs Laboratory Tests Test 11/04/16 17:25 11/05/16 06:10 11/05/16 06:18 Urine Random Creatinine 13.81 L Urine Random Sodium 38 Urine Protein/Creatinine Ratio 1.73 Urine Total Protein 24.0 H White Blood Count 20.4 #H Red Blood Count 3.23 L Hemoglobin 8.9 L Hematocrit 28.8 L Mean Corpuscular Volume 89.2 Mean Corpuscular Hemoglobin 27.6 L Mean Corpuscular Hemoglobin Concent 30.9 L Red Cell Distribution Width 13.6 Platelet Count 325 Mean Platelet Volume 9.8 Neutrophils % 78.6 H Lymphocytes % 4.6 L Monocytes % 9.5 Eosinophils % 0.1 Basophils % 0.2 Nucleated Red Blood Cells % 0.4 H Neutrophils # 16.0 H Lymphocytes # 0.9 Monocytes # 1.9 H Eosinophils # 0.0 Basophils # 0.1 Nucleated Red Blood Cells # 0.1 H Uric Acid 2.7 L B-Type Natriuretic Peptide 364 H Sodium Level 134 L Potassium Level 4.3 Chloride Level 106 Carbon Dioxide Level 26 Anion Gap 6 L Blood Urea Nitrogen 3 L Creatinine 0.54 Glucose Level 78 Calcium Level 7.8 L Total Bilirubin 0.2 Direct Bilirubin 0.00 Indirect Bilirubin 0.2 Aspartate Amino Transf (AST/SGOT) 52 H Alanine Aminotransferase (ALT/SGPT) 51 Alkaline Phosphatase 65 Total Protein 4.0 L Albumin 2.2 L Globulin 1.80 Albumin/Globulin Ratio 1.22 Medications Medications Current Medications Dimethicone (Blistex Lip [place]) 1 applic Q2H PRN TOP CHAPPED LIPS; Start at 09:30 Diphenhydramine HCl (Benadryl) 25 mg Q6H PRN IV ITCHING Last administered on 06:34; Admin Dose 25 MG; Start 10/11/16 at 16:19 Hydralazine HCl 10 mg 10 mg Q4H PRN IV ELEVATED BLOOD PRESSURE; Start 10/15/16 at 10:00 Acetaminophen (Ofirmev 1000mg/ 100ml Iv) 100 ml @ 400 mls/hr Q6H PRN IVPB HEADACHE Last administered on 10/27/16 09:48; Admin Dose 400 MLS/HR; Start at 10:00 IV Flush (NS 10 ml) 10 ml PRN PRN IV FLUSH LINE Last administered on 10/22/16 20:40; Admin Dose 10 ML; Start 10/16/16 at 11:00 Tramadol HCl (Ultram) 50 mg Q6H PRN PO PAIN LEVEL 6-10 Last administered on 10/29 01:56; Admin Dose 50 MG; Start 10/19/16 at 23:00 Hydromorphone HCl (Dilaudid) 0.5 mg Q8 PRN IV PAIN Last administered on 01:26; Admin Dose 0.5 MG; Start 10/23/16 at 06:00 Pantoprazole 40 mg 40 mg DAILY@06 PO Last administered on 11/05/16 05:27; Admin Dose 40 MG; Start 10/25/16 at 06:00 Ondansetron HCl/ Dextrose (Zofran Inj/D5W) 54 ml @ 108 mls/hr Q8H PRN IV NAUSEA AND/OR VOMITING; Start 10/24/16 at 17:30 Prochlorperazine (Compazine Inj) 10 mg Q8H PRN IV NAUSEA AND/OR VOMITING Last administered on 10/30/16 23:25; Admin Dose 10 MG; Start 10/24/16 at 17:30 Hydrocortisone (Solu-Cortef) 100 mg PRN PRN IV ALLERGIC REACTION; Start at 22:00 Diphenhydramine HCl 50 mg 50 mg PRN PRN IV ALLERGIC REACTION; Start 10/25/16 at 22:00 Ceftriaxone Sodium (Rocephin) 50 ml @ 100 mls/hr Q24H IVPB Last administered on 11/04/16 17:19; Admin Dose 100 MLS/HR; Start 10/25/16 at 17:00 Bisacodyl (Dulcolax) 5 mg DAILY PRN PO CONSTIPATION Last administered on 10:31; Admin Dose 5 MG; Start 10/28/16 at 10:00 Ondansetron HCl (Zofran Inj) 4 mg Q6H PRN IV NAUSEA AND/OR VOMITING Last administered on 10/30/16 18:05; Admin Dose 4 MG; Start 10/29/16 at 09:00 Metoprolol Tartrate (Lopressor) 5 mg Q4H PRN IV HR>110 Hold SBP<100; Start 10/29 at 18:00 Metoclopramide HCl (Reglan) 10 mg Q6H PRN IV NAUSEA; Start 10/31/16 at 09:00 Atenolol (Tenormin) 12.5 mg DAILY PO Last administered on 11/05/16 09:33; Admin Dose 12.5 MG; Start 11/03/16 at 09:00 Filgrastim (Neupogen) 480 mcg DAILY@17 SC Last administered on 11/04/16 17:19; Admin Dose 480 MCG; Start 11/03/16 at 17:00 Atorvastatin Calcium 20 mg 20 mg HS PO Last administered on 11/04/16 20:21; Admin Dose 20 MG; Start 11/03/16 at 21:00 Potassium Chloride/Dextrose/ Sod Cl (D5-NS + KCl 20 Meq) 1,000 ml @ 60 mls/hr [id number] IV Last administered on 11/05/16 05:28; Admin Dose 60 MLS/HR; Start 11/04/16 at 13:30 Miscellaneous Information 1 ea Q8 XX ; Start 11/05/16 at 10:00; Stop 11/05/16 at 23:45 DIANA COLLIER MD November 05, 2016 16:55
[2016-11-05] MEDS: FILGRASTIM 480 MCG INJ SC SCH (17:00)
[2016-11-05] MEDS: CEFTRIAXONE 1 GM/50 ML (PMX) 50 ML IVPB SCH (17:23)
--- NOTE | 2016-11-05 17:32 | CONS ---
Date/Time of Note Date/Time of Note DATE: 11/05/16 TIME: 17:30 Assessment/Plan Assessment/Plan Chief Complaint/Hosp Course The patient is a 56-year-old female with recent diagnosis of endometrial cancer on 09/17/2016 by endometrial biopsy. The patient was diagnosed with stage IV endometrial cancer. She underwent CYNDI/BSO and recto-sigmoid en-bloc with low anastomosis per Dr. Bueno on 10/11/16. She had extensive positive retroperitoneal lymph nodes removed but the confluence of disease makes her classified as millimeter residual disease. - Path report showed metastatic carcinosarcoma. Per Dr. Kitchen of pathology, tumor is poorly differentiated though mostly sarcoma (90%) in the metastases. Ifosfamide/taxol with carbo taxol chemorx recommended: Dr. Bueno, would like to treat with 8 cycles of each regimen. Side effects including N/V, fatigue, myelosuppression, allergic reaction, confusion, hemorrhagic cystitis discussed with the patient. -Patient is now cycle 1 day 8 of ifosfamide/taxol 10/25/16, tolerated fairly well thus far. labs stable and continue supportive care. -Pt with tachycardia, possibly secondary to the taxol or dehydration, appreciate cardiology recs, now resolved -Ct A/P done 10/29/16 shows no evidence of acute intraabdominal process. known metastatic disease was seen. Prior CT A/P with and without contrast 10/02/16 demonstrated metastatic spread with bilateral right greater than left adnexal lesions, with areas of infiltration and nodularity within the right paracolic gutter and transverse mesocolon. 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 Currently there are no signs of encephalopathy with ifosfamide. - continue antiemetic support. Zofran 8mg IV q 6 started. Will consider given Akynzeo with next cycle - Avoid benzodiazepines or Ambien while receiving ifosfamide. - continue to monitor counts, no longer neutropenic - cont to monitor HR and Na per primary team - cont ceftriaxone for UTI - PT eval, OOB per Dr. Bueno Patient will need to be re-admitted in approximately 11/15/16 for cycle 2 ifosfamide/taxol Chemo regimen (started 10/25/16) Ifosfamide 1600 mg/mg2 IV once per week D1-3 Paclitaxel 135 mg/m2 IV over 3 hours D1 [place] 2000 mg IV over 12 hours once per day (15 minutes before ifosfamide) D1-3 Decadron 20 mg PO 12 hours and 6 hours prior to paclitaxel Neupogen 480 mcg subcutaneous once per day starting D4 until ANC > 2000 Problems: Consultation Date/Type/Reason Admit Date/Time Oct 10, 2016 at 09:46 Initial Consult Date 10/12/16 Type of Consultation: Oncology Referring Provider: ARLENE CHOWDARY MD 24 HR Interval Summary Free Text/Dictation Patient doing well today. Exam/Review of Systems Vital Signs Vitals Vital Signs Date Time Temp Pulse Resp B/P Pulse Ox O2 Delivery O2 Flow Rate FiO2 11/05/16 16:03 80 11/05/16 15:08 98.0 16 106/65 97 11/03/16 20:30 Nasal Cannula 11/02/16 20:00 2.0 Intake and Output 11/04/16 11/04/16 11/05/16 15:00 23:00 07:00 Intake Total 230 ml 1110 ml 500 ml Output Total 665 ml 125 ml Balance -435 ml 985 ml 500 ml Exam Constitutional: alert, frail, oriented Psych: no complaints Head: normocephalic Eyes: nl conjunctiva ENMT: nl external ears & nose Neck: non-tender, supple Respiratory: clear to auscultation, normal air movement Cardiovascular: nl pulses, regular rate and rhythm Gastrointestinal: soft Musculoskeletal: bilateral lower extremity edema, nl gait and stance Results Result Diagram: 11/05/16 0610 11/05/16 0618 Results 24 hrs Laboratory Tests Test 11/05/16 06:10 11/05/16 06:18 White Blood Count 20.4 #H Red Blood Count 3.23 L Hemoglobin 8.9 L Hematocrit 28.8 L Mean Corpuscular Volume 89.2 Mean Corpuscular Hemoglobin 27.6 L Mean Corpuscular Hemoglobin Concent 30.9 L Red Cell Distribution Width 13.6 Platelet Count 325 Mean Platelet Volume 9.8 Neutrophils % 78.6 H Lymphocytes % 4.6 L Monocytes % 9.5 Eosinophils % 0.1 Basophils % 0.2 Nucleated Red Blood Cells % 0.4 H Neutrophils # 16.0 H Lymphocytes # 0.9 Monocytes # 1.9 H Eosinophils # 0.0 Basophils # 0.1 Nucleated Red Blood Cells # 0.1 H Uric Acid 2.7 L B-Type Natriuretic Peptide 364 H Sodium Level 134 L Potassium Level 4.3 Chloride Level 106 Carbon Dioxide Level 26 Anion Gap 6 L Blood Urea Nitrogen 3 L Creatinine 0.54 Glucose Level 78 Calcium Level 7.8 L Total Bilirubin 0.2 Direct Bilirubin 0.00 Indirect Bilirubin 0.2 Aspartate Amino Transf (AST/SGOT) 52 H Alanine Aminotransferase (ALT/SGPT) 51 Alkaline Phosphatase 65 Total Protein 4.0 L Albumin 2.2 L Globulin 1.80 Albumin/Globulin Ratio 1.22 Medications Medications Current Medications Dimethicone (Blistex Lip [place]) 1 applic Q2H PRN TOP CHAPPED LIPS; Start at 09:30 Diphenhydramine HCl (Benadryl) 25 mg Q6H PRN IV ITCHING Last administered on 06:34; Admin Dose 25 MG; Start 10/11/16 at 16:19 Hydralazine HCl 10 mg 10 mg Q4H PRN IV ELEVATED BLOOD PRESSURE; Start 10/15/16 at 10:00 Acetaminophen (Ofirmev 1000mg/ 100ml Iv) 100 ml @ 400 mls/hr Q6H PRN IVPB HEADACHE Last administered on 10/27/16 09:48; Admin Dose 400 MLS/HR; Start at 10:00 IV Flush (NS 10 ml) 10 ml PRN PRN IV FLUSH LINE Last administered on 10/22/16 20:40; Admin Dose 10 ML; Start 10/16/16 at 11:00 Tramadol HCl (Ultram) 50 mg Q6H PRN PO PAIN LEVEL 6-10 Last administered on 10/29 01:56; Admin Dose 50 MG; Start 10/19/16 at 23:00 Hydromorphone HCl (Dilaudid) 0.5 mg Q8 PRN IV PAIN Last administered on 01:26; Admin Dose 0.5 MG; Start 10/23/16 at 06:00 Pantoprazole 40 mg 40 mg DAILY@06 PO Last administered on 11/05/16 05:27; Admin Dose 40 MG; Start 10/25/16 at 06:00 Ondansetron HCl/ Dextrose (Zofran Inj/D5W) 54 ml @ 108 mls/hr Q8H PRN IV NAUSEA AND/OR VOMITING; Start 10/24/16 at 17:30 Prochlorperazine (Compazine Inj) 10 mg Q8H PRN IV NAUSEA AND/OR VOMITING Last administered on 10/30/16 23:25; Admin Dose 10 MG; Start 10/24/16 at 17:30 Hydrocortisone (Solu-Cortef) 100 mg PRN PRN IV ALLERGIC REACTION; Start at 22:00 Diphenhydramine HCl 50 mg 50 mg PRN PRN IV ALLERGIC REACTION; Start 10/25/16 at 22:00 Ceftriaxone Sodium (Rocephin) 50 ml @ 100 mls/hr Q24H IVPB Last administered on 11/05/16 17:23; Admin Dose 100 MLS/HR; Start 10/25/16 at 17:00 Bisacodyl (Dulcolax) 5 mg DAILY PRN PO CONSTIPATION Last administered on 10:31; Admin Dose 5 MG; Start 10/28/16 at 10:00 Ondansetron HCl (Zofran Inj) 4 mg Q6H PRN IV NAUSEA AND/OR VOMITING Last administered on 10/30/16 18:05; Admin Dose 4 MG; Start 10/29/16 at 09:00 Metoprolol Tartrate (Lopressor) 5 mg Q4H PRN IV HR>110 Hold SBP<100; Start 10/29 at 18:00 Metoclopramide HCl (Reglan) 10 mg Q6H PRN IV NAUSEA; Start 10/31/16 at 09:00 Atenolol (Tenormin) 12.5 mg DAILY PO Last administered on 11/05/16 09:33; Admin Dose 12.5 MG; Start 11/03/16 at 09:00 Filgrastim (Neupogen) 480 mcg DAILY@17 SC Last administered on 11/04/16 17:19; Admin Dose 480 MCG; Start 11/03/16 at 17:00 Atorvastatin Calcium 20 mg 20 mg HS PO Last administered on 11/04/16 20:21; Admin Dose 20 MG; Start 11/03/16 at 21:00 Potassium Chloride/Dextrose/ Sod Cl (D5-NS + KCl 20 Meq) 1,000 ml @ 60 mls/hr [id number] IV Last administered on 5/8/17at 05:28; Admin Dose 60 MLS/HR; Start 11/04/16 at 13:30 Miscellaneous Information 1 ea Q8 XX ; Start 11/05/16 at 10:00; Stop 11/05/16 at 23:45 LINDA SWANSON MD November 05, 2016 17:32
--- NOTE | 2016-11-05 18:35 | PN ---
Date/Time of Note Date/Time of Note DATE: 11/05/16 TIME: 18:32 Assessment/Plan VTE Prophylaxis VTE Prophylaxis Intervention: SCD's Lines/Catheters IV [facility] Type [facility]from [facility] PICC Line Central line still needed: Yes Urinary Cath still in place: No Assessment/Plan Chief Complaint/Hosp Course Assessment and plan: - Stage IV endometrial cancer, status post surgical procedure with CYNDI/BSO and recto-sigmoid en-bloc with low anastomosis by Dr. Bueno on 10/11. Path report showed metastatic carcinosarcoma. Started on chemotherapy. Dr. Logan is following in oncology consultation. - Tachycardia, Dr. Oglesby is asked to see patient in cardiology consultation. - Hypertension. Continue hydralazine as needed for systolic blood pressure above 170. - Dyslipidemia. We will resume statins when patient is able to tolerate p.o. - Gastritis. Continue Protonix. - Hyponatremia, Dr. Cabrales is following in nephrology consultation. Further recommendations based on clinical course. Plan of care discussed with Dr. Richardson. Problems: Subjective 24 Hr Interval Summary Free Text/Dictation Continues to have a large amount output from left BJ with serous drainage, denies any nausea, stable vital signs. Exam/Review of Systems Vital Signs Vitals Vital Signs Date Time Temp Pulse Resp B/P Pulse Ox O2 Delivery O2 Flow Rate FiO2 11/05/16 16:03 80 11/05/16 15:08 98.0 16 106/65 97 11/03/16 20:30 Nasal Cannula 11/02/16 20:00 2.0 Intake and Output 11/04/16 11/04/16 11/05/16 15:00 23:00 07:00 Intake Total 230 ml 1110 ml 500 ml Output Total 665 ml 125 ml Balance -435 ml 985 ml 500 ml Exam Constitutional: alert, oriented Psych: no complaints Head: normocephalic Eyes: nl conjunctiva ENMT: nl external ears & nose Neck: non-tender, supple Respiratory: clear to auscultation, normal air movement Cardiovascular: nl pulses, regular rate and rhythm Gastrointestinal: other (Status post surgery, surgical incision is intact with ag and left lower quadrant BJ.), soft Musculoskeletal: nl extremities to inspection Extremities: normal pulses Neurological: CUSTOMER ACCOUNT COORDINATOR II-XII intact Results Result Diagram: 11/05/16 0610 11/05/16 0618 Results 24 hrs Laboratory Tests Test 11/05/16 06:10 11/05/16 06:18 White Blood Count 20.4 #H Red Blood Count 3.23 L Hemoglobin 8.9 L Hematocrit 28.8 L Mean Corpuscular Volume 89.2 Mean Corpuscular Hemoglobin 27.6 L Mean Corpuscular Hemoglobin Concent 30.9 L Red Cell Distribution Width 13.6 Platelet Count 325 Mean Platelet Volume 9.8 Neutrophils % 78.6 H Lymphocytes % 4.6 L Monocytes % 9.5 Eosinophils % 0.1 Basophils % 0.2 Nucleated Red Blood Cells % 0.4 H Neutrophils # 16.0 H Lymphocytes # 0.9 Monocytes # 1.9 H Eosinophils # 0.0 Basophils # 0.1 Nucleated Red Blood Cells # 0.1 H Uric Acid 2.7 L B-Type Natriuretic Peptide 364 H Sodium Level 134 L Potassium Level 4.3 Chloride Level 106 Carbon Dioxide Level 26 Anion Gap 6 L Blood Urea Nitrogen 3 L Creatinine 0.54 Glucose Level 78 Calcium Level 7.8 L Total Bilirubin 0.2 Direct Bilirubin 0.00 Indirect Bilirubin 0.2 Aspartate Amino Transf (AST/SGOT) 52 H Alanine Aminotransferase (ALT/SGPT) 51 Alkaline Phosphatase 65 Total Protein 4.0 L Albumin 2.2 L Globulin 1.80 Albumin/Globulin Ratio 1.22 Medications Medications Current Medications Dimethicone (Blistex Lip [place]) 1 applic Q2H PRN TOP CHAPPED LIPS; Start at 09:30 Diphenhydramine HCl (Benadryl) 25 mg Q6H PRN IV ITCHING Last administered on 06:34; Admin Dose 25 MG; Start 10/11/16 at 16:19 Hydralazine HCl 10 mg 10 mg Q4H PRN IV ELEVATED BLOOD PRESSURE; Start 10/15/16 at 10:00 Acetaminophen (Ofirmev 1000mg/ 100ml Iv) 100 ml @ 400 mls/hr Q6H PRN IVPB HEADACHE Last administered on 10/27/16 09:48; Admin Dose 400 MLS/HR; Start at 10:00 IV Flush (NS 10 ml) 10 ml PRN PRN IV FLUSH LINE Last administered on 10/22/16 20:40; Admin Dose 10 ML; Start 10/16/16 at 11:00 Tramadol HCl (Ultram) 50 mg Q6H PRN PO PAIN LEVEL 6-10 Last administered on 10/29 01:56; Admin Dose 50 MG; Start 10/19/16 at 23:00 Hydromorphone HCl (Dilaudid) 0.5 mg Q8 PRN IV PAIN Last administered on 01:26; Admin Dose 0.5 MG; Start 10/23/16 at 06:00 Pantoprazole 40 mg 40 mg DAILY@06 PO Last administered on 11/05/16 05:27; Admin Dose 40 MG; Start 10/25/16 at 06:00 Ondansetron HCl/ Dextrose (Zofran Inj/D5W) 54 ml @ 108 mls/hr Q8H PRN IV NAUSEA AND/OR VOMITING; Start 10/24/16 at 17:30 Prochlorperazine (Compazine Inj) 10 mg Q8H PRN IV NAUSEA AND/OR VOMITING Last administered on 10/30/16 23:25; Admin Dose 10 MG; Start 10/24/16 at 17:30 Hydrocortisone (Solu-Cortef) 100 mg PRN PRN IV ALLERGIC REACTION; Start at 22:00 Diphenhydramine HCl 50 mg 50 mg PRN PRN IV ALLERGIC REACTION; Start 10/25/16 at 22:00 Ceftriaxone Sodium (Rocephin) 50 ml @ 100 mls/hr Q24H IVPB Last administered on 11/05/16 17:23; Admin Dose 100 MLS/HR; Start 10/25/16 at 17:00 Bisacodyl (Dulcolax) 5 mg DAILY PRN PO CONSTIPATION Last administered on 10:31; Admin Dose 5 MG; Start 10/28/16 at 10:00 Ondansetron HCl (Zofran Inj) 4 mg Q6H PRN IV NAUSEA AND/OR VOMITING Last administered on 10/30/16 18:05; Admin Dose 4 MG; Start 10/29/16 at 09:00 Metoprolol Tartrate (Lopressor) 5 mg Q4H PRN IV HR>110 Hold SBP<100; Start 10/29 at 18:00 Metoclopramide HCl (Reglan) 10 mg Q6H PRN IV NAUSEA; Start 10/31/16 at 09:00 Atenolol (Tenormin) 12.5 mg DAILY PO Last administered on 11/05/16 09:33; Admin Dose 12.5 MG; Start 11/03/16 at 09:00 Filgrastim (Neupogen) 480 mcg DAILY@17 SC Last administered on 11/04/16 17:19; Admin Dose 480 MCG; Start 11/03/16 at 17:00 Atorvastatin Calcium 20 mg 20 mg HS PO Last administered on 11/04/16 20:21; Admin Dose 20 MG; Start 11/03/16 at 21:00 Potassium Chloride/Dextrose/ Sod Cl (D5-NS + KCl 20 Meq) 1,000 ml @ 60 mls/hr [id number] IV Last administered on 11/05/16 05:28; Admin Dose 60 MLS/HR; Start 11/04/16 at 13:30 Miscellaneous Information 1 ea Q8 XX ; Start 11/05/16 at 10:00; Stop 11/05/16 at 23:45 ELVIN TEIXEIRA November 05, 2016 18:35
[2016-11-05] MEDS: ATORVASTATIN 20 MG TAB PO SCH (20:54)
[2016-11-06] VITALS (11 sets, daily range): BP systolic 96–117; BP diastolic 62–80; PULSE 72–85; RESP 16–20
[2016-11-06] MEDS: PANTOPRAZOLE (EC) 40 MG TAB PO SCH (06:08)
[2016-11-06 06:55] LABS: ADD SCAN DIFF NO
[2016-11-06 06:57] LABS: ABNORMAL IP MESSAGE 1; HEMATOCRIT 28.8 % (37.0-47.0); HEMOGLOBIN 9.2 g/dl (12.0-16.0); MEAN CORPUSCULAR HEMOGLOBIN 28.1 pg (29.0-33.0); MEAN CORPUSCULAR HGB CONC 31.9 g/dl (32.0-37.0); MEAN CORPUSCULAR VOLUME 88.1 fl (82.0-101.0); MEAN PLATELET VOLUME 9.3 fl (7.4-10.4); PLATELET COUNT 338 10^3/UL (140-415); RED BLOOD COUNT 3.27 10^6/ul (4.20-5.40); RED CELL DISTRIBUTION WIDTH 13.8 % (11.5-14.5); WHITE BLOOD COUNT 37.7 10^3/ul (4.8-10.8)
[2016-11-06 07:59] LABS: CALCIUM 7.8 mg/dl (8.4-10.2); CREATININE 0.56 mg/dl (0.44-1.00); POTASSIUM 4.1 mmol/L (3.5-5.1)
[2016-11-06] MEDS: ATENOLOL 25 MG TAB PO SCH (09:17)
--- NOTE | 2016-11-06 09:19 | CONS ---
Date/Time of Note Date/Time of Note DATE: 11/06/16 TIME: 09:18 Assessment/Plan Assessment/Plan Additional Assessment/Plan 1. Tachyarrhythmia, most consistent with sinus tachycardia-overall improved with HR in high 90's to low 100 - stable on tele now - NOW IMPROVED 2. History of hypertension with stable blood pressures at this time- well rx 3. Abnormal electrocardiogram with right axis deviation and nonspecific ST-T abnormalities, assess for acute coronary syndrome. 4. History of dyslipidemia. 5. 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 Leukocytosis, severe, assess for infection. 7. Hyponatremia-ongoing- RENAL TEAM FOLLOWS 8. Anemia.- H/H stable - no bleeding now - stable 9.Nausea better now Consultation Date/Type/Reason Admit Date/Time Oct 10, 2016 at 09:46 Initial Consult Date 10/12/16 Type of Consultation: Oncology Referring Provider: ARLENE CHOWDARY MD 24 HR Interval Summary Free Text/Dictation NO acute change - HR well controlled ROS: No fever, no chills, no nausea, no vomiting, no diarrhea/constipation No recent weight changes No chest pain, no PND, no orthopnea No dizziness, blurred vision No thirst, no heat or cold intolerance Exam/Review of Systems Vital Signs Vitals Vital Signs Date Time Temp Pulse Resp B/P Pulse Ox O2 Delivery O2 Flow Rate FiO2 11/06/16 07:22 98.3 92 18 117/80 96 11/03/16 20:30 Nasal Cannula 11/02/16 20:00 2.0 Intake and Output 11/05/16 11/05/16 11/06/16 15:00 23:00 07:00 Intake Total 1790 ml 950 ml Output Total 130 ml 1425 ml 2340 ml Balance -130 ml 365 ml -1390 ml Exam General: WN/WD/NAD, AOx 3 HEENT: Unicetric/atraumatic/EOMI (follows commands) NECK: JVD elevated, no thyromegaly Lymph: no lymphadenopathy HEART: regular with no S3, II/ systolic murmur at apex LUNGS: Coarse sounds ABD: soft, NT, ND, +BS : Intact Neuro: non focal SKIN: chronic changes EXT: trace edema Results Result Diagram: 5/9/17 0645 5/9/17 0645 Results 24 hrs Laboratory Tests Test 11/06/16 06:45 White Blood Count 37.7 #H Red Blood Count 3.27 L Hemoglobin 9.2 L Hematocrit 28.8 L Mean Corpuscular Volume 88.1 Mean Corpuscular Hemoglobin 28.1 L Mean Corpuscular Hemoglobin Concent 31.9 L Red Cell Distribution Width 13.8 Platelet Count 338 Mean Platelet Volume 9.3 Neutrophils % Lymphocytes % Monocytes % Eosinophils % Basophils % Neutrophils # Lymphocytes # Monocytes # Eosinophils # Basophils # Sodium Level 135 Potassium Level 4.1 Chloride Level 107 Carbon Dioxide Level 28 Anion Gap 4 L Blood Urea Nitrogen 3 L Creatinine 0.56 Glucose Level 107 Calcium Level 7.8 L Medications Medications Current Medications Dimethicone (Blistex Lip [place]) 1 applic Q2H PRN TOP CHAPPED LIPS; Start at 09:30 Diphenhydramine HCl (Benadryl) 25 mg Q6H PRN IV ITCHING Last administered on 06:34; Admin Dose 25 MG; Start 10/11/16 at 16:19 Hydralazine HCl 10 mg 10 mg Q4H PRN IV ELEVATED BLOOD PRESSURE; Start 10/15/16 at 10:00 Acetaminophen (Ofirmev 1000mg/ 100ml Iv) 100 ml @ 400 mls/hr Q6H PRN IVPB HEADACHE Last administered on 10/27/16 09:48; Admin Dose 400 MLS/HR; Start at 10:00 IV Flush (NS 10 ml) 10 ml PRN PRN IV FLUSH LINE Last administered on 10/22/16 20:40; Admin Dose 10 ML; Start 10/16/16 at 11:00 Tramadol HCl (Ultram) 50 mg Q6H PRN PO PAIN LEVEL 6-10 Last administered on 10/29 01:56; Admin Dose 50 MG; Start 10/19/16 at 23:00 Hydromorphone HCl (Dilaudid) 0.5 mg Q8 PRN IV PAIN Last administered on 01:26; Admin Dose 0.5 MG; Start 10/23/16 at 06:00 Pantoprazole 40 mg 40 mg DAILY@06 PO Last administered on 11/06/16 06:08; Admin Dose 40 MG; Start 10/25/16 at 06:00 Ondansetron HCl/ Dextrose (Zofran Inj/D5W) 54 ml @ 108 mls/hr Q8H PRN IV NAUSEA AND/OR VOMITING; Start 10/24/16 at 17:30 Prochlorperazine (Compazine Inj) 10 mg Q8H PRN IV NAUSEA AND/OR VOMITING Last administered on 10/30/16 23:25; Admin Dose 10 MG; Start 10/24/16 at 17:30 Hydrocortisone (Solu-Cortef) 100 mg PRN PRN IV ALLERGIC REACTION; Start at 22:00 Diphenhydramine HCl 50 mg 50 mg PRN PRN IV ALLERGIC REACTION; Start 10/25/16 at 22:00 Ceftriaxone Sodium (Rocephin) 50 ml @ 100 mls/hr Q24H IVPB Last administered on 11/05/16 17:23; Admin Dose 100 MLS/HR; Start 10/25/16 at 17:00 Bisacodyl (Dulcolax) 5 mg DAILY PRN PO CONSTIPATION Last administered on 10:31; Admin Dose 5 MG; Start 10/28/16 at 10:00 Ondansetron HCl (Zofran Inj) 4 mg Q6H PRN IV NAUSEA AND/OR VOMITING Last administered on 10/30/16 18:05; Admin Dose 4 MG; Start 10/29/16 at 09:00 Metoprolol Tartrate (Lopressor) 5 mg Q4H PRN IV HR>110 Hold SBP<100; Start 10/29 at 18:00 Metoclopramide HCl (Reglan) 10 mg Q6H PRN IV NAUSEA; Start 10/31/16 at 09:00 Atenolol (Tenormin) 12.5 mg DAILY PO Last administered on 11/06/16 09:17; Admin Dose 12.5 MG; Start 11/03/16 at 09:00 Filgrastim (Neupogen) 480 mcg DAILY@17 SC Last administered on 11/04/16 17:19; Admin Dose 480 MCG; Start 11/03/16 at 17:00 Atorvastatin Calcium 20 mg 20 mg HS PO Last administered on 11/05/16 20:54; Admin Dose 20 MG; Start 11/03/16 at 21:00 Potassium Chloride/Dextrose/ Sod Cl (D5-NS + KCl 20 Meq) 1,000 ml @ 60 mls/hr [id number] IV Last administered on 11/05/16t 22:24; Admin Dose 60 MLS/HR; Start 11/04/16 at 13:30 JOHNNA PAUL MD November 06, 2016 09:19
[2016-11-06 11:31] LABS: LYMPHOCYTES # 1.1 10^3/ul (0.8-2.9); MONOCYTE # 3.8 10^3/ul (0.3-0.9); MYELOCYTES # 0.8; NEUTROPHIL # 27.1 10^3/ul (1.6-7.5)
--- NOTE | 2016-11-06 11:33 | RADRPT ---
PROCEDURE: XR Chest 1 View. CLINICAL INDICATION: Status post PICC line placement. Poorly functioning PICC line. TECHNIQUE: AP view of the chest was obtained. COMPARISON: October 16, 2016 FINDINGS: The cardiomediastinal silhouette is within normal limits. Right-sided PICC line has its tip in the e xpected location of the distal superior vena cava. Blunting of the left costophrenic angle is noted . No consolidations are identified. No pneumothorax is seen. Osseous structures are intact. IMPRESSION: Right-sided PICC line with its tip in the expected location of the distal superior vena cava. Small left pleural effusion. RPTAT: AA .Bernardo Rivera MD, MD Date Time Electronically viewed and signed by .Bernardo Rivera MD, on 11/06/2016 11:33 .P/
--- NOTE | 2016-11-06 12:03 | CONS ---
Date/Time of Note Date/Time of Note DATE: 11/06/16 TIME: 12:01 Assessment/Plan Assessment/Plan Additional Assessment/Plan 1. Hyponatremia, likely secondary to hypovolemic hyponatremia, but due to the patient receiving ifosfamide recently, I would like to rule out renal tubular acidosis and salt wasting syndrome. 2. Hypoalbuminemia with albumin level of 1.9. 3. Stage IV endometrial cancer status post surgery, CYNDI/BSO with en bloc resection and low anastomosis. Currently, received cycle 1 day #8 of chemotherapy with ifosfamide. 4. History of hypertension. 5. History of hyperlipidemia. 6. History of gastritis. PLAN: Na 135, d/c IV fluids doing ok Pain control will follow up Consultation Date/Type/Reason Admit Date/Time Oct 10, 2016 at 09:46 Initial Consult Date Type of Consultation: NEPHROLOGY Referring Provider: ARLENE CHOWDARY MD 24 HR Interval Summary Free Text/Dictation Na 137, WBC still high, pt is feeling ok Exam/Review of Systems Vital Signs Vitals Vital Signs Date Time Temp Pulse Resp B/P Pulse Ox O2 Delivery O2 Flow Rate FiO2 11/06/16 11:44 97.8 66 16 110/68 95 11/03/16 20:30 Nasal Cannula 11/02/16 20:00 2.0 Intake and Output 11/05/16 11/05/16 11/06/16 15:00 23:00 07:00 Intake Total 1790 ml 950 ml Output Total 130 ml 1425 ml 2340 ml Balance -130 ml 365 ml -1390 ml Results Result Diagram: 11/06/16 0645 11/06/16 0645 Results 24 hrs Laboratory Tests Test 11/06/16 06:45 White Blood Count 37.7 #H Red Blood Count 3.27 L Hemoglobin 9.2 L Hematocrit 28.8 L Mean Corpuscular Volume 88.1 Mean Corpuscular Hemoglobin 28.1 L Mean Corpuscular Hemoglobin Concent 31.9 L Red Cell Distribution Width 13.8 Platelet Count 338 Mean Platelet Volume 9.3 Neutrophils % 72.0 Band Neutrophils % 5.0 Lymphocytes % 3.0 L Monocytes % 10.0 Eosinophils % Basophils % Metamyelocytes % 2.0 H Myelocytes % 2.0 H Promyelocytes % 6.0 H Neutrophils # 27.1 H Lymphocytes # 1.1 Monocytes # 3.8 H Eosinophils # Basophils # Metamyelocytes # 0.8 Myelocytes # 0.8 Promyelocytes # 2.3 Sodium Level 135 Potassium Level 4.1 Chloride Level 107 Carbon Dioxide Level 28 Anion Gap 4 L Blood Urea Nitrogen 3 L Creatinine 0.56 Glucose Level 107 Calcium Level 7.8 L Medications Medications Current Medications Dimethicone (Blistex Lip [place]) 1 applic Q2H PRN TOP CHAPPED LIPS; Start at 09:30 Diphenhydramine HCl (Benadryl) 25 mg Q6H PRN IV ITCHING Last administered on 06:34; Admin Dose 25 MG; Start 10/11/16 at 16:19 Hydralazine HCl 10 mg 10 mg Q4H PRN IV ELEVATED BLOOD PRESSURE; Start 10/15/16 at 10:00 Acetaminophen (Ofirmev 1000mg/ 100ml Iv) 100 ml @ 400 mls/hr Q6H PRN IVPB HEADACHE Last administered on 10/27/16 09:48; Admin Dose 400 MLS/HR; Start at 10:00 IV Flush (NS 10 ml) 10 ml PRN PRN IV FLUSH LINE Last administered on 10/22/16 20:40; Admin Dose 10 ML; Start 10/16/16 at 11:00 Tramadol HCl (Ultram) 50 mg Q6H PRN PO PAIN LEVEL 6-10 Last administered on 10/29 01:56; Admin Dose 50 MG; Start 10/19/16 at 23:00 Hydromorphone HCl (Dilaudid) 0.5 mg Q8 PRN IV PAIN Last administered on 01:26; Admin Dose 0.5 MG; Start 10/23/16 at 06:00 Pantoprazole 40 mg 40 mg DAILY@06 PO Last administered on 11/06/16 06:08; Admin Dose 40 MG; Start 10/25/16 at 06:00 Ondansetron HCl/ Dextrose (Zofran Inj/D5W) 54 ml @ 108 mls/hr Q8H PRN IV NAUSEA AND/OR VOMITING; Start 10/24/16 at 17:30 Prochlorperazine (Compazine Inj) 10 mg Q8H PRN IV NAUSEA AND/OR VOMITING Last administered on 10/30/16 23:25; Admin Dose 10 MG; Start 10/24/16 at 17:30 Hydrocortisone (Solu-Cortef) 100 mg PRN PRN IV ALLERGIC REACTION; Start at 22:00 Diphenhydramine HCl 50 mg 50 mg PRN PRN IV ALLERGIC REACTION; Start 10/25/16 at 22:00 Ceftriaxone Sodium (Rocephin) 50 ml @ 100 mls/hr Q24H IVPB Last administered on 11/05/16 17:23; Admin Dose 100 MLS/HR; Start 10/25/16 at 17:00 Bisacodyl (Dulcolax) 5 mg DAILY PRN PO CONSTIPATION Last administered on 10:31; Admin Dose 5 MG; Start 10/28/16 at 10:00 Ondansetron HCl (Zofran Inj) 4 mg Q6H PRN IV NAUSEA AND/OR VOMITING Last administered on 10/30/16 18:05; Admin Dose 4 MG; Start 10/29/16 at 09:00 Metoprolol Tartrate (Lopressor) 5 mg Q4H PRN IV HR>110 Hold SBP<100; Start 10/29 at 18:00 Metoclopramide HCl (Reglan) 10 mg Q6H PRN IV NAUSEA; Start 10/31/16 at 09:00 Atenolol (Tenormin) 12.5 mg DAILY PO Last administered on 11/06/16 09:17; Admin Dose 12.5 MG; Start 11/03/16 at 09:00 Filgrastim (Neupogen) 480 mcg DAILY@17 SC Last administered on 11/04/16 17:19; Admin Dose 480 MCG; Start 11/03/16 at 17:00 Atorvastatin Calcium 20 mg 20 mg HS PO Last administered on 11/05/16 20:54; Admin Dose 20 MG; Start 11/03/16 at 21:00 Potassium Chloride/Dextrose/ Sod Cl (D5-NS + KCl 20 Meq) 1,000 ml @ 60 mls/hr [id number] IV Last administered on 11/05/16 22:24; Admin Dose 60 MLS/HR; Start 11/04/16 at 13:30 DIANA COLLIER MD November 06, 2016 12:03
[2016-11-06] MEDS ORDERED: ALTEPLASE (CATHFLO) 2 MG INJ CATHETER ONE (12:30)
[2016-11-06] MEDS ORDERED: ALTEPLASE (CATHFLO) 2 MG INJ CATHETER PRN (12:30)
--- NOTE | 2016-11-06 13:19 | PN ---
Date/Time of Note Date/Time of Note DATE: 11/06/16 TIME: 13:16 Assessment/Plan VTE Prophylaxis VTE Prophylaxis Intervention: SCD's Lines/Catheters IV Catheter Type (from [facility]): PICC Line Central line still needed: Yes Urinary Cath still in place: No Assessment/Plan Chief Complaint/Hosp Course Assessment and plan: - Stage IV endometrial cancer, status post surgical procedure with CYNDI/BSO and recto-sigmoid en-bloc with low anastomosis by Dr. Bueno on 10/11. Path report showed metastatic carcinosarcoma. Started on chemotherapy. Dr. Logan is following in oncology consultation. - Tachycardia, Dr. Oglesby is asked to see patient in cardiology consultation. - Hypertension. Continue hydralazine as needed for systolic blood pressure above 170. - Dyslipidemia. We will resume statins when patient is able to tolerate p.o. - Gastritis. Continue Protonix. - Hyponatremia, resolved. Dr. Cabrales is following in nephrology consultation. Further recommendations based on clinical course. Plan of care discussed with Dr. Richardson. Problems: Subjective 24 Hr Interval Summary Free Text/Dictation Patient denies any nausea vomiting, able to void with no problems, continues to have abdominal drain with serous drainage. Exam/Review of Systems Vital Signs Vitals Vital Signs Date Time Temp Pulse Resp B/P Pulse Ox O2 Delivery O2 Flow Rate FiO2 11/06/16 11:44 97.8 66 16 110/68 95 11/03/16 20:30 Nasal Cannula 11/02/16 20:00 2.0 Intake and Output 11/05/16 11/05/16 11/06/16 14:59 22:59 06:59 Intake Total 1790 ml 950 ml Output Total 130 ml 1425 ml 2340 ml Balance -130 ml 365 ml -1390 ml Exam Constitutional: alert, oriented Psych: no complaints Head: normocephalic Eyes: nl conjunctiva ENMT: nl external ears & nose Neck: non-tender, supple Respiratory: clear to auscultation, normal air movement Cardiovascular: nl pulses, regular rate and rhythm Gastrointestinal: other (Status post surgery, surgical incision is intact with ag and left lower quadrant BJ.), soft Musculoskeletal: nl extremities to inspection Extremities: normal pulses 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 Results Result Diagram: 11/06/1645 11/06/1645 Results 24 hrs Laboratory Tests Test 11/06/16 06:45 White Blood Count 37.7 #H Red Blood Count 3.27 L Hemoglobin 9.2 L Hematocrit 28.8 L Mean Corpuscular Volume 88.1 Mean Corpuscular Hemoglobin 28.1 L Mean Corpuscular Hemoglobin Concent 31.9 L Red Cell Distribution Width 13.8 Platelet Count 338 Mean Platelet Volume 9.3 Neutrophils % 72.0 Band Neutrophils % 5.0 Lymphocytes % 3.0 L Monocytes % 10.0 Eosinophils % Basophils % Metamyelocytes % 2.0 H Myelocytes % 2.0 H Promyelocytes % 6.0 H Neutrophils # 27.1 H Lymphocytes # 1.1 Monocytes # 3.8 H Eosinophils # Basophils # Metamyelocytes # 0.8 Myelocytes # 0.8 Promyelocytes # 2.3 Sodium Level 135 Potassium Level 4.1 Chloride Level 107 Carbon Dioxide Level 28 Anion Gap 4 L Blood Urea Nitrogen 3 L Creatinine 0.56 Glucose Level 107 Calcium Level 7.8 L Medications Medications Current Medications Dimethicone (Blistex Lip [place]) 1 applic Q2H PRN TOP CHAPPED LIPS; Start at 09:30 Diphenhydramine HCl (Benadryl) 25 mg Q6H PRN IV ITCHING Last administered on 06:34; Admin Dose 25 MG; Start 10/11/16 at 16:19 Hydralazine HCl 10 mg 10 mg Q4H PRN IV ELEVATED BLOOD PRESSURE; Start 10/15/16 at 10:00 Acetaminophen (Ofirmev 1000mg/ 100ml Iv) 100 ml @ 400 mls/hr Q6H PRN IVPB HEADACHE Last administered on 10/27/16 09:48; Admin Dose 400 MLS/HR; Start at 10:00 IV Flush (NS 10 ml) 10 ml PRN PRN IV FLUSH LINE Last administered on 10/22/16 20:40; Admin Dose 10 ML; Start 10/16/16 at 11:00 Tramadol HCl (Ultram) 50 mg Q6H PRN PO PAIN LEVEL 6-10 Last administered on 10/29 01:56; Admin Dose 50 MG; Start 10/19/16 at 23:00 Hydromorphone HCl (Dilaudid) 0.5 mg Q8 PRN IV PAIN Last administered on 01:26; Admin Dose 0.5 MG; Start 10/23/16 at 06:00 Pantoprazole 40 mg 40 mg DAILY@06 PO Last administered on 11/06/16 06:08; Admin Dose 40 MG; Start 10/25/16 at 06:00 Ondansetron HCl/ Dextrose (Zofran Inj/D5W) 54 ml @ 108 mls/hr Q8H PRN IV NAUSEA AND/OR VOMITING; Start 10/24/16 at 17:30 Prochlorperazine (Compazine Inj) 10 mg Q8H PRN IV NAUSEA AND/OR VOMITING Last administered on 10/30/16 23:25; Admin Dose 10 MG; Start 10/24/16 at 17:30 Hydrocortisone (Solu-Cortef) 100 mg PRN PRN IV ALLERGIC REACTION; Start at 22:00 Diphenhydramine HCl 50 mg 50 mg PRN PRN IV ALLERGIC REACTION; Start 10/25/16 at 22:00 Ceftriaxone Sodium (Rocephin) 50 ml @ 100 mls/hr Q24H IVPB Last administered on 11/05/16 17:23; Admin Dose 100 MLS/HR; Start 10/25/16 at 17:00 Bisacodyl (Dulcolax) 5 mg DAILY PRN PO CONSTIPATION Last administered on 10:31; Admin Dose 5 MG; Start 10/28/16 at 10:00 Ondansetron HCl (Zofran Inj) 4 mg Q6H PRN IV NAUSEA AND/OR VOMITING Last administered on 10/30/16 18:05; Admin Dose 4 MG; Start 10/29/16 at 09:00 Metoprolol Tartrate (Lopressor) 5 mg Q4H PRN IV HR>110 Hold SBP<100; Start 10/29 at 18:00 Metoclopramide HCl (Reglan) 10 mg Q6H PRN IV NAUSEA; Start 10/31/16 at 09:00 Atenolol (Tenormin) 12.5 mg DAILY PO Last administered on 11/06/16 09:17; Admin Dose 12.5 MG; Start 11/03/16 at 09:00 Filgrastim (Neupogen) 480 mcg DAILY@17 SC Last administered on 11/04/16 17:19; Admin Dose 480 MCG; Start 11/03/16 at 17:00 Atorvastatin Calcium (Lipitor) 20 mg HS PO Last administered on 11/05/16 20:54 ; Admin Dose 20 MG; Start 11/03/16 at 21:00 ELVIN TEIXEIRA November 06, 2016 13:19
--- NOTE | 2016-11-06 13:24 | CONS ---
Date/Time of Note Date/Time of Note DATE: 11/06/16 TIME: : Assessment/Plan Assessment/Plan Chief Complaint/Hosp Course The patient is a 56-year-old female with recent diagnosis of endometrial cancer on 09/17/2016 by endometrial biopsy. The patient was diagnosed with stage IV endometrial cancer. She underwent CYNDI/BSO and recto-sigmoid en-bloc with low anastomosis per Dr. Bueno on 10/11/16. She had extensive positive retroperitoneal lymph nodes removed but the confluence of disease makes her classified as millimeter residual disease. - Path report showed metastatic carcinosarcoma. Per Dr. Kitchen of pathology, tumor is poorly differentiated though mostly sarcoma (90%) in the metastases. Ifosfamide/taxol with carbo taxol chemorx recommended: Dr. Bueno, would like to treat with 8 cycles of each regimen. Side effects including N/V, fatigue, myelosuppression, allergic reaction, confusion, hemorrhagic cystitis discussed with the patient. -Patient is now cycle 1 day 8 of ifosfamide/taxol 10/25/16, tolerated fairly well thus far. labs stable and continue supportive care. -Pt with tachycardia, possibly secondary to the taxol or dehydration, appreciate cardiology recs, now resolved -Ct A/P done 10/29/16 shows no evidence of acute intraabdominal process. known metastatic disease was seen. Prior CT A/P with and without contrast 10/02/16 demonstrated metastatic spread with bilateral right greater than left adnexal lesions, with areas of infiltration and nodularity within the right paracolic gutter and transverse mesocolon. Recs - continue to monitor for HEAD PASTRY CHEF symptoms. Currently there are no signs of encephalopathy with ifosfamide. - continue antiemetic support. Zofran 8mg IV q 6 started. Will consider given Akynzeo with next cycle - Avoid benzodiazepines or Ambien while receiving ifosfamide. - continue to monitor counts, no longer neutropenic. ANC dropped to 0.8 on , s/p neupogen 480 mcg 11/04/16 and 11/05/16. Now with leukocytosis likely related to prior neupogen. - cont to monitor HR and Na per primary team - cont ceftriaxone for UTI - PT eval, OOB per Dr. Bueno Patient will need to be re-admitted in approximately 11/15/16 for cycle 2 ifosfamide/taxol Chemo regimen (started 10/25/16) Ifosfamide 1600 mg/mg2 IV once per week D1-3 Paclitaxel 135 mg/m2 IV over 3 hours D1 [place] 2000 mg IV over 12 hours once per day (15 minutes before ifosfamide) D1-3 Decadron 20 mg PO 12 hours and 6 hours prior to paclitaxel Neupogen 480 mcg subcutaneous once per day starting D4 until ANC > 2000 Problems: Consultation Date/Type/Reason Admit Date/Time Oct 10, 2016 at 09:46 Initial Consult Date 10/12/16 Type of Consultation: Hematology Referring Provider: ARLENE CHOWDARY MD 24 HR Interval Summary Free Text/Dictation No complaints, doing well. Exam/Review of Systems Vital Signs Vitals Vital Signs Date Time Temp Pulse Resp B/P Pulse Ox O2 Delivery O2 Flow Rate FiO2 11/06/16 11:44 97.8 66 16 110/68 95 11/03/16 20:30 Nasal Cannula 11/02/16 20:00 2.0 Intake and Output 11/05/16 11/05/16 11/06/16 15:00 23:00 07:00 Intake Total 1790 ml 950 ml Output Total 130 ml 1425 ml 2340 ml Balance -130 ml 365 ml -1390 ml Exam Constitutional: alert, frail, oriented Psych: no complaints Head: normocephalic Eyes: nl conjunctiva ENMT: nl external ears & nose Neck: non-tender, supple Respiratory: clear to auscultation, normal air movement Cardiovascular: nl pulses, regular rate and rhythm Gastrointestinal: soft Musculoskeletal: bilateral lower extremity edema, nl gait and stance Results Result Diagram: 11/06/16 0645 11/06/16 0645 Results 24 hrs Laboratory Tests Test 11/06/16 06:45 White Blood Count 37.7 #H Red Blood Count 3.27 L Hemoglobin 9.2 L Hematocrit 28.8 L Mean Corpuscular Volume 88.1 Mean Corpuscular Hemoglobin 28.1 L Mean Corpuscular Hemoglobin Concent 31.9 L Red Cell Distribution Width 13.8 Platelet Count 338 Mean Platelet Volume 9.3 Neutrophils % 72.0 Band Neutrophils % 5.0 Lymphocytes % 3.0 L Monocytes % 10.0 Eosinophils % Basophils % Metamyelocytes % 2.0 H Myelocytes % 2.0 H Promyelocytes % 6.0 H Neutrophils # 27.1 H Lymphocytes # 1.1 Monocytes # 3.8 H Eosinophils # Basophils # Metamyelocytes # 0.8 Myelocytes # 0.8 Promyelocytes # 2.3 Sodium Level 135 Potassium Level 4.1 Chloride Level 107 Carbon Dioxide Level 28 Anion Gap 4 L Blood Urea Nitrogen 3 L Creatinine 0.56 Glucose Level 107 Calcium Level 7.8 L Medications Medications Current Medications Dimethicone (Blistex Lip [place]) 1 applic Q2H PRN TOP CHAPPED LIPS; Start at 09:30 Diphenhydramine HCl (Benadryl) 25 mg Q6H PRN IV ITCHING Last administered on 06:34; Admin Dose 25 MG; Start 10/11/16 at 16:19 Hydralazine HCl 10 mg 10 mg Q4H PRN IV ELEVATED BLOOD PRESSURE; Start 10/15/16 at 10:00 Acetaminophen (Ofirmev 1000mg/ 100ml Iv) 100 ml @ 400 mls/hr Q6H PRN IVPB HEADACHE Last administered on 10/27/16 09:48; Admin Dose 400 MLS/HR; Start at 10:00 IV Flush (NS 10 ml) 10 ml PRN PRN IV FLUSH LINE Last administered on 10/22/16 20:40; Admin Dose 10 ML; Start 10/16/16 at 11:00 Tramadol HCl (Ultram) 50 mg Q6H PRN PO PAIN LEVEL 6-10 Last administered on 10/29 01:56; Admin Dose 50 MG; Start 10/19/16 at 23:00 Hydromorphone HCl (Dilaudid) 0.5 mg Q8 PRN IV PAIN Last administered on 01:26; Admin Dose 0.5 MG; Start 10/23/16 at 06:00 Pantoprazole 40 mg 40 mg DAILY@06 PO Last administered on 11/06/16 06:08; Admin Dose 40 MG; Start 10/25/16 at 06:00 Ondansetron HCl/ Dextrose (Zofran Inj/D5W) 54 ml @ 108 mls/hr Q8H PRN IV NAUSEA AND/OR VOMITING; Start 10/24/16 at 17:30 Prochlorperazine (Compazine Inj) 10 mg Q8H PRN IV NAUSEA AND/OR VOMITING Last administered on 10/30/16 23:25; Admin Dose 10 MG; Start 10/24/16 at 17:30 Hydrocortisone (Solu-Cortef) 100 mg PRN PRN IV ALLERGIC REACTION; Start at 22:00 Diphenhydramine HCl 50 mg 50 mg PRN PRN IV ALLERGIC REACTION; Start 10/25/16 at 22:00 Ceftriaxone Sodium (Rocephin) 50 ml @ 100 mls/hr Q24H IVPB Last administered on 11/05/16 17:23; Admin Dose 100 MLS/HR; Start 10/25/16 at 17:00 Bisacodyl (Dulcolax) 5 mg DAILY PRN PO CONSTIPATION Last administered on 10:31; Admin Dose 5 MG; Start 10/28/16 at 10:00 Ondansetron HCl (Zofran Inj) 4 mg Q6H PRN IV NAUSEA AND/OR VOMITING Last administered on 10/30/16 18:05; Admin Dose 4 MG; Start 10/29/16 at 09:00 Metoprolol Tartrate (Lopressor) 5 mg Q4H PRN IV HR>110 Hold SBP<100; Start 10/29 at 18:00 Metoclopramide HCl (Reglan) 10 mg Q6H PRN IV NAUSEA; Start 10/31/16 at 09:00 Atenolol (Tenormin) 12.5 mg DAILY PO Last administered on 11/06/16 09:17; Admin Dose 12.5 MG; Start 11/03/16 at 09:00 Filgrastim (Neupogen) 480 mcg DAILY@17 SC Last administered on 11/04/16 17:19; Admin Dose 480 MCG; Start 11/03/16 at 17:00 Atorvastatin Calcium (Lipitor) 20 mg HS PO Last administered on 11/05/16 20:54 ; Admin Dose 20 MG; Start 11/03/16 at 21:00 TOLINDA MD November 06, 2016 13:24
[2016-11-06] MEDS: CEFTRIAXONE 1 GM/50 ML (PMX) 50 ML IVPB SCH (17:36)
[2016-11-06] MEDS: ATORVASTATIN 20 MG TAB PO SCH (20:21)
[2016-11-07 05:13] LABS: ADD SCAN DIFF NO
[2016-11-07] MEDS: PANTOPRAZOLE (EC) 40 MG TAB PO SCH (05:14)
[2016-11-07 05:15] LABS: ABNORMAL IP MESSAGE 1; BASOPHILS % 0.2 % (0.0-2.0); HEMATOCRIT 28.7 % (37.0-47.0); LYMPHOCYTES # 0.8 10^3/ul (0.8-2.9); LYMPHOCYTES % 4.2 % (15.0-51.0); MEAN CORPUSCULAR HEMOGLOBIN 28.1 pg (29.0-33.0); MEAN CORPUSCULAR HGB CONC 31.4 g/dl (32.0-37.0); MEAN CORPUSCULAR VOLUME 89.7 fl (82.0-101.0); MEAN PLATELET VOLUME 9.5 fl (7.4-10.4); MONOCYTE # 2.6 10^3/ul (0.3-0.9); MONOCYTES % 13.4 % (0.0-11.0); NEUTROPHIL # 12.5 10^3/ul (1.6-7.5); NEUTROPHILS % 64.8 % (39.0-77.0); NUCLEATED RED BLOOD CELLS # 0.1 10^3/ul (0.0-0.0); NUCLEATED RED BLOOD CELLS% 0.5 /100WBC (0.0-0.0); PLATELET COUNT 320 10^3/UL (140-415); RED CELL DISTRIBUTION WIDTH 14.1 % (11.5-14.5); WHITE BLOOD COUNT 19.2 10^3/ul (4.8-10.8)
[2016-11-07 05:39] LABS: POTASSIUM 3.8 mmol/L (3.5-5.1)
[2016-11-07 05:41] LABS: CREATININE 0.58 mg/dl (0.44-1.00)
[2016-11-07 05:42] LABS: CALCIUM 7.7 mg/dl (8.4-10.2)
[2016-11-07 07:00] VITALS: BP 119/60; RESP 20
[2016-11-07] MEDS: ATENOLOL 25 MG TAB PO SCH (09:54)
--- NOTE | 2016-11-07 11:39 | CONS ---
Date/Time of Note Date/Time of Note DATE: 11/07/16 TIME: 11:38 Assessment/Plan Assessment/Plan Additional Assessment/Plan 1. Hyponatremia, likely secondary to hypovolemic hyponatremia, but due to the patient receiving ifosfamide recently, I would like to rule out renal tubular acidosis and salt wasting syndrome. 2. Hypoalbuminemia with albumin level of 1.9. 3. Stage IV endometrial cancer status post surgery, CYNDI/BSO with en bloc resection and low anastomosis. Currently, received cycle 1 day #8 of chemotherapy with ifosfamide. 4. History of hypertension. 5. History of hyperlipidemia. 6. History of gastritis. PLAN: Na 138, d/rosalba IV fluids doing ok Pain control will follow up Consultation Date/Type/Reason Admit Date/Time Oct 10, 2016 at 09:46 Initial Consult Date Type of Consultation: NEPHGROLOGY Referring Provider: ARLENE CHOWDARY MD 24 HR Interval Summary Free Text/Dictation Na improved to normal c/o back pain Exam/Review of Systems Vital Signs Vitals Vital Signs Date Time Temp Pulse Resp B/P Pulse Ox O2 Delivery O2 Flow Rate FiO2 11/07/16 07:00 98.7 80 20 119/60 98 11/03/16 20:30 Nasal Cannula Intake and Output 11/06/16 11/06/16 11/07/16 15:00 23:00 07:00 Intake Total 1490 ml 340 ml Output Total 120 ml 1925 ml 1060 ml Balance -120 ml -435 ml -720 ml Exam GENERAL: Awake, alert, mild to moderate distress due to the pain and hypotension. HEENT: Pupils equal, round, reactive to light and accommodation. Extraocular muscles are intact. No scleral icterus. NECK: Supple, no JVD, no lymphadenopathy. LUNGS: With decreased breath sounds at both lung bases. No crackles, no wheezes. HEART: S1, S2, with regular rhythm, no murmur. ABDOMEN: Soft, nontender, nondistended. Bowel sounds are present. EXTREMITIES: No clubbing, cyanosis, or edema. NEUROLOGICAL: Nonfocal, intact. PSYCHIATRIC: Appropriate affect and mood. Results Result Diagram: 11/07/16 0430 11/07/16 0430 Results 24 hrs Laboratory Tests Test 11/07/16 04:30 White Blood Count 19.2 #H Red Blood Count 3.20 L Hemoglobin 9.0 L Hematocrit 28.7 L Mean Corpuscular Volume 89.7 Mean Corpuscular Hemoglobin 28.1 L Mean Corpuscular Hemoglobin Concent 31.4 L Red Cell Distribution Width 14.1 Platelet Count 320 Mean Platelet Volume 9.5 Neutrophils % 64.8 Lymphocytes % 4.2 L Monocytes % 13.4 H Eosinophils % 0.0 Basophils % 0.2 Nucleated Red Blood Cells % 0.5 H Neutrophils # 12.5 H Lymphocytes # 0.8 Monocytes # 2.6 H Eosinophils # 0.0 Basophils # 0.0 Nucleated Red Blood Cells # 0.1 H Sodium Level 138 Potassium Level 3.8 Chloride Level 103 Carbon Dioxide Level 31 Anion Gap 8 Blood Urea Nitrogen 5 L Creatinine 0.58 Glucose Level 86 Calcium Level 7.7 L Medications Medications Current Medications Dimethicone (Blistex Lip [place]) 1 applic Q2H PRN TOP CHAPPED LIPS; Start at 09:30 Diphenhydramine HCl (Benadryl) 25 mg Q6H PRN IV ITCHING Last administered on 06:34; Admin Dose 25 MG; Start 10/11/16 at 16:19 Hydralazine HCl 10 mg 10 mg Q4H PRN IV ELEVATED BLOOD PRESSURE; Start 10/15/16 at 10:00 Acetaminophen (Ofirmev 1000mg/ 100ml Iv) 100 ml @ 400 mls/hr Q6H PRN IVPB HEADACHE Last administered on 10/27/16 09:48; Admin Dose 400 MLS/HR; Start at 10:00 IV Flush (NS 10 ml) 10 ml PRN PRN IV FLUSH LINE Last administered on 10/22/16 20:40; Admin Dose 10 ML; Start 10/16/16 at 11:00 Tramadol HCl (Ultram) 50 mg Q6H PRN PO PAIN LEVEL 6-10 Last administered on 10/29 01:56; Admin Dose 50 MG; Start 10/19/16 at 23:00 Hydromorphone HCl (Dilaudid) 0.5 mg Q8 PRN IV PAIN Last administered on 01:26; Admin Dose 0.5 MG; Start 10/23/16 at 06:00 Pantoprazole 40 mg 40 mg DAILY@06 PO Last administered on 11/07/16 05:14; Admin Dose 40 MG; Start 10/25/16 at 06:00 Ondansetron HCl/ Dextrose (Zofran Inj/D5W) 54 ml @ 108 mls/hr Q8H PRN IV NAUSEA AND/OR VOMITING; Start 10/24/16 at 17:30 Prochlorperazine (Compazine Inj) 10 mg Q8H PRN IV NAUSEA AND/OR VOMITING Last administered on 10/30/16 23:25; Admin Dose 10 MG; Start 10/24/16 at 17:30 Hydrocortisone (Solu-Cortef) 100 mg PRN PRN IV ALLERGIC REACTION; Start at 22:00 Diphenhydramine HCl 50 mg 50 mg PRN PRN IV ALLERGIC REACTION; Start 10/25/16 at 22:00 Ceftriaxone Sodium (Rocephin) 50 ml @ 100 mls/hr Q24H IVPB Last administered on 11/06/16 17:36; Admin Dose 100 MLS/HR; Start 10/25/16 at 17:00 Bisacodyl (Dulcolax) 5 mg DAILY PRN PO CONSTIPATION Last administered on 10:31; Admin Dose 5 MG; Start 10/28/16 at 10:00 Ondansetron HCl (Zofran Inj) 4 mg Q6H PRN IV NAUSEA AND/OR VOMITING Last administered on 10/30/16 18:05; Admin Dose 4 MG; Start 10/29/16 at 09:00 Metoclopramide HCl (Reglan) 10 mg Q6H PRN IV NAUSEA; Start 10/31/16 at 09:00 Atenolol (Tenormin) 12.5 mg DAILY PO Last administered on 11/07/16 09:54; Admin Dose 12.5 MG; Start 11/03/16 at 09:00 Atorvastatin Calcium (Lipitor) 20 mg HS PO Last administered on 11/06/16 20:21 ; Admin Dose 20 MG; Start 11/03/16 at 21:00 DIANA COLLIER MD November 07, 2016 11:39
--- NOTE | 2016-11-07 12:09 | CONS ---
Date/Time of Note Date/Time of Note DATE: 11/07/16 TIME: 12:09 Assessment/Plan Assessment/Plan Chief Complaint/Hosp Course The patient is a 56-year-old female with recent diagnosis of endometrial cancer on 09/17/2016 by endometrial biopsy. The patient was diagnosed with stage IV endometrial cancer. She underwent CYNDI/BSO and recto-sigmoid en-bloc with low anastomosis per Dr. Bueno on 10/11/16. She had extensive positive retroperitoneal lymph nodes removed but the confluence of disease makes her classified as millimeter residual disease. - Path report showed metastatic carcinosarcoma. Per Dr. Kitchen of pathology, tumor is poorly differentiated though mostly sarcoma (90%) in the metastases. Ifosfamide/taxol with carbo taxol chemorx recommended: Dr. Bueno, would like to treat with 8 cycles of each regimen. Side effects including N/V, fatigue, myelosuppression, allergic reaction, confusion, hemorrhagic cystitis discussed with the patient. -Patient is now cycle 1 day 8 of ifosfamide/taxol 10/25/16, tolerated fairly well thus far. labs stable and continue supportive care. -Pt with tachycardia, possibly secondary to the taxol or dehydration, appreciate cardiology recs, now resolved -Ct A/P done 10/29/16 shows no evidence of acute intraabdominal process. known metastatic disease was seen. Prior CT A/P with and without contrast 10/02/16 demonstrated metastatic spread with bilateral right greater than left adnexal lesions, with areas of infiltration and nodularity within the right paracolic gutter and transverse mesocolon. Recs - continue to monitor for FIRER DIESEL LOCOMOTIVE symptoms. Currently there are no signs of encephalopathy with ifosfamide. - continue antiemetic support. Zofran 8mg IV q 6 started. Will consider given Akynzeo with next cycle - Avoid benzodiazepines or Ambien while receiving ifosfamide. - continue to monitor counts, no longer neutropenic. ANC dropped to 0.8 on , s/p neupogen 480 mcg 11/04/16 and 11/05/16. Now with leukocytosis likely related to prior neupogen. - cont to monitor HR and Na per primary team - cont ceftriaxone for UTI - PT eval, OOB per Dr. Bueno Patient will need to be re-admitted in approximately 11/15/16 for cycle 2 ifosfamide/taxol Chemo regimen (started 10/25/16) Ifosfamide 1600 mg/mg2 IV once per week D1-3 Paclitaxel 135 mg/m2 IV over 3 hours D1 [place] 2000 mg IV over 12 hours once per day (15 minutes before ifosfamide) D1-3 Decadron 20 mg PO 12 hours and 6 hours prior to paclitaxel Neupogen 480 mcg subcutaneous once per day starting D4 until ANC > 2000 Problems: Consultation Date/Type/Reason Admit Date/Time Oct 10, 2016 at 09:46 Initial Consult Date 10/12/16 Type of Consultation: Oncology Referring Provider: ARLENE CHOWDARY MD 24 HR Interval Summary Free Text/Dictation Patient doing well, no complaints. Exam/Review of Systems Vital Signs Vitals Vital Signs Date Time Temp Pulse Resp B/P Pulse Ox O2 Delivery O2 Flow Rate FiO2 11/07/16 07:00 98.7 80 20 119/60 98 11/03/16 20:30 Nasal Cannula Intake and Output 11/06/16 11/06/16 11/07/16 15:00 23:00 07:00 Intake Total 1490 ml 340 ml Output Total 120 ml 1925 ml 1060 ml Balance -120 ml -435 ml -720 ml Exam Constitutional: alert, frail, oriented Psych: no complaints Head: normocephalic Eyes: nl conjunctiva ENMT: nl external ears & nose Neck: non-tender, supple Respiratory: clear to auscultation, normal air movement Cardiovascular: nl pulses, regular rate and rhythm Gastrointestinal: soft Musculoskeletal: bilateral lower extremity edema, nl gait and stance Results Result Diagram: 11/07/16 0430 11/07/16 0430 Results 24 hrs Laboratory Tests Test 11/07/16 04:30 White Blood Count 19.2 #H Red Blood Count 3.20 L Hemoglobin 9.0 L Hematocrit 28.7 L Mean Corpuscular Volume 89.7 Mean Corpuscular Hemoglobin 28.1 L Mean Corpuscular Hemoglobin Concent 31.4 L Red Cell Distribution Width 14.1 Platelet Count 320 Mean Platelet Volume 9.5 Neutrophils % 64.8 Lymphocytes % 4.2 L Monocytes % 13.4 H Eosinophils % 0.0 Basophils % 0.2 Nucleated Red Blood Cells % 0.5 H Neutrophils # 12.5 H Lymphocytes # 0.8 Monocytes # 2.6 H Eosinophils # 0.0 Basophils # 0.0 Nucleated Red Blood Cells # 0.1 H Sodium Level 138 Potassium Level 3.8 Chloride Level 103 Carbon Dioxide Level 31 Anion Gap 8 Blood Urea Nitrogen 5 L Creatinine 0.58 Glucose Level 86 Calcium Level 7.7 L Medications Medications Current Medications Dimethicone (Blistex Lip [place]) 1 applic Q2H PRN TOP CHAPPED LIPS; Start at 09:30 Diphenhydramine HCl (Benadryl) 25 mg Q6H PRN IV ITCHING Last administered on 06:34; Admin Dose 25 MG; Start 10/11/16 at 16:19 Hydralazine HCl 10 mg 10 mg Q4H PRN IV ELEVATED BLOOD PRESSURE; Start 10/15/16 at 10:00 Acetaminophen (Ofirmev 1000mg/ 100ml Iv) 100 ml @ 400 mls/hr Q6H PRN IVPB HEADACHE Last administered on 10/27/16 09:48; Admin Dose 400 MLS/HR; Start at 10:00 IV Flush (NS 10 ml) 10 ml PRN PRN IV FLUSH LINE Last administered on 10/22/16 20:40; Admin Dose 10 ML; Start 10/16/16 at 11:00 Tramadol HCl (Ultram) 50 mg Q6H PRN PO PAIN LEVEL 6-10 Last administered on 10/29 01:56; Admin Dose 50 MG; Start 10/19/16 at 23:00 Hydromorphone HCl (Dilaudid) 0.5 mg Q8 PRN IV PAIN Last administered on 01:26; Admin Dose 0.5 MG; Start 10/23/16 at 06:00 Pantoprazole 40 mg 40 mg DAILY@06 PO Last administered on 11/07/16 05:14; Admin Dose 40 MG; Start 10/25/16 at 06:00 Ondansetron HCl/ Dextrose (Zofran Inj/D5W) 54 ml @ 108 mls/hr Q8H PRN IV NAUSEA AND/OR VOMITING; Start 10/24/16 at 17:30 Prochlorperazine (Compazine Inj) 10 mg Q8H PRN IV NAUSEA AND/OR VOMITING Last administered on 10/30/16 23:25; Admin Dose 10 MG; Start 10/24/16 at 17:30 Hydrocortisone (Solu-Cortef) 100 mg PRN PRN IV ALLERGIC REACTION; Start at 22:00 Diphenhydramine HCl 50 mg 50 mg PRN PRN IV ALLERGIC REACTION; Start 10/25/16 at 22:00 Ceftriaxone Sodium (Rocephin) 50 ml @ 100 mls/hr Q24H IVPB Last administered on 11/06/16 17:36; Admin Dose 100 MLS/HR; Start 10/25/16 at 17:00 Bisacodyl (Dulcolax) 5 mg DAILY PRN PO CONSTIPATION Last administered on 10:31; Admin Dose 5 MG; Start 10/28/16 at 10:00 Ondansetron HCl (Zofran Inj) 4 mg Q6H PRN IV NAUSEA AND/OR VOMITING Last administered on 10/30/16 18:05; Admin Dose 4 MG; Start 10/29/16 at 09:00 Metoclopramide HCl (Reglan) 10 mg Q6H PRN IV NAUSEA; Start 10/31/16 at 09:00 Atenolol (Tenormin) 12.5 mg DAILY PO Last administered on 11/07/16 09:54; Admin Dose 12.5 MG; Start 11/03/16 at 09:00 Atorvastatin Calcium (Lipitor) 20 mg HS PO Last administered on 11/06/16 20:21 ; Admin Dose 20 MG; Start 11/03/16 at 21:00 LINDA SWANSON MD November 07, 2016 12:09
--- NOTE | 2016-11-07 15:45 | PN ---
Date/Time of Note Date/Time of Note DATE: 11/07/16 TIME: 15:44 Assessment/Plan VTE Prophylaxis VTE Prophylaxis Intervention: SCD's Lines/Catheters IV C[facility]ter Type (from [facility] PICC Line Central line still needed: Yes Urinary Cath still in place: No Assessment/Plan Chief Complaint/Hosp Course Assessment and plan: - Stage IV endometrial cancer, status post surgical procedure with CYNDI/BSO and recto-sigmoid en-bloc with low anastomosis by Dr. Bueno on 10/11. Path report showed metastatic carcinosarcoma. Started on chemotherapy. Dr. Logan is following in oncology consultation. - Tachycardia, resolved. Dr. Oglesby is asked to see patient in cardiology consultation. - Hypertension. Continue hydralazine as needed for systolic blood pressure above 170. - Dyslipidemia. We will resume statins when patient is able to tolerate p.o. - Gastritis. Continue Protonix. - Hyponatremia, resolved. Dr. Cabrales is following in nephrology consultation. Further recommendations based on clinical course. Plan of care discussed with Dr. Richardson. Problems: Subjective 24 Hr Interval Summary Free Text/Dictation Patient denies any nausea, ambulates in the hallway, left lower abdomen BJ present Exam/Review of Systems Vital Signs Vitals Vital Signs Date Time Temp Pulse Resp B/P Pulse Ox O2 Delivery O2 Flow Rate FiO2 11/07/16 07:00 98.7 80 20 119/60 98 11/03/16 20:30 Nasal Cannula Intake and Output 11/06/16 11/06/16 11/07/16 15:00 23:00 07:00 Intake Total 1490 ml 340 ml Output Total 120 ml 1925 ml 1060 ml Balance -120 ml -435 ml -720 ml Exam Constitutional: alert, oriented Psych: no complaints Head: normocephalic Eyes: nl conjunctiva ENMT: nl external ears & nose Neck: non-tender, supple Respiratory: clear to auscultation, normal air movement Cardiovascular: nl pulses, regular rate and rhythm Gastrointestinal: other (Status post surgery, surgical incision is intact with ag and left lower quadrant BJ.), soft Musculoskeletal: nl extremities to inspection Extremities: normal pulses 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 Results Result Diagram: 11/07/16 0430 11/07/16 0430 Results 24 hrs Laboratory Tests Test 11/07/16 04:30 White Blood Count 19.2 #H Red Blood Count 3.20 L Hemoglobin 9.0 L Hematocrit 28.7 L Mean Corpuscular Volume 89.7 Mean Corpuscular Hemoglobin 28.1 L Mean Corpuscular Hemoglobin Concent 31.4 L Red Cell Distribution Width 14.1 Platelet Count 320 Mean Platelet Volume 9.5 Neutrophils % 64.8 Lymphocytes % 4.2 L Monocytes % 13.4 H Eosinophils % 0.0 Basophils % 0.2 Nucleated Red Blood Cells % 0.5 H Neutrophils # 12.5 H Lymphocytes # 0.8 Monocytes # 2.6 H Eosinophils # 0.0 Basophils # 0.0 Nucleated Red Blood Cells # 0.1 H Sodium Level 138 Potassium Level 3.8 Chloride Level 103 Carbon Dioxide Level 31 Anion Gap 8 Blood Urea Nitrogen 5 L Creatinine 0.58 Glucose Level 86 Calcium Level 7.7 L Medications Medications Current Medications Dimethicone (Blistex Lip [place]) 1 applic Q2H PRN TOP CHAPPED LIPS; Start at 09:30 Diphenhydramine HCl (Benadryl) 25 mg Q6H PRN IV ITCHING Last administered on 06:34; Admin Dose 25 MG; Start 10/11/16 at 16:19 Hydralazine HCl 10 mg 10 mg Q4H PRN IV ELEVATED BLOOD PRESSURE; Start 10/15/16 at 10:00 Acetaminophen (Ofirmev 1000mg/ 100ml Iv) 100 ml @ 400 mls/hr Q6H PRN IVPB HEADACHE Last administered on 10/27/16 09:48; Admin Dose 400 MLS/HR; Start at 10:00 IV Flush (NS 10 ml) 10 ml PRN PRN IV FLUSH LINE Last administered on 10/22/16 20:40; Admin Dose 10 ML; Start 10/16/16 at 11:00 Tramadol HCl (Ultram) 50 mg Q6H PRN PO PAIN LEVEL 6-10 Last administered on 10/29 01:56; Admin Dose 50 MG; Start 10/19/16 at 23:00 Hydromorphone HCl (Dilaudid) 0.5 mg Q8 PRN IV PAIN Last administered on 01:26; Admin Dose 0.5 MG; Start 10/23/16 at 06:00 Pantoprazole 40 mg 40 mg DAILY@06 PO Last administered on 11/07/16 05:14; Admin Dose 40 MG; Start 10/25/16 at 06:00 Ondansetron HCl/ Dextrose (Zofran Inj/D5W) 54 ml @ 108 mls/hr Q8H PRN IV NAUSEA AND/OR VOMITING; Start 10/24/16 at 17:30 Prochlorperazine (Compazine Inj) 10 mg Q8H PRN IV NAUSEA AND/OR VOMITING Last administered on 10/30/16 23:25; Admin Dose 10 MG; Start 10/24/16 at 17:30 Hydrocortisone (Solu-Cortef) 100 mg PRN PRN IV ALLERGIC REACTION; Start at 22:00 Diphenhydramine HCl 50 mg 50 mg PRN PRN IV ALLERGIC REACTION; Start 10/25/16 at 22:00 Ceftriaxone Sodium (Rocephin) 50 ml @ 100 mls/hr Q24H IVPB Last administered on 11/06/16 17:36; Admin Dose 100 MLS/HR; Start 10/25/16 at 17:00 Bisacodyl (Dulcolax) 5 mg DAILY PRN PO CONSTIPATION Last administered on 10:31; Admin Dose 5 MG; Start 10/28/16 at 10:00 Ondansetron HCl (Zofran Inj) 4 mg Q6H PRN IV NAUSEA AND/OR VOMITING Last administered on 10/30/16 18:05; Admin Dose 4 MG; Start 10/29/16 at 09:00 Metoclopramide HCl (Reglan) 10 mg Q6H PRN IV NAUSEA; Start 10/31/16 at 09:00 Atenolol (Tenormin) 12.5 mg DAILY PO Last administered on 11/07/16 09:54; Admin Dose 12.5 MG; Start 11/03/16 at 09:00 Atorvastatin Calcium (Lipitor) 20 mg HS PO Last administered on 11/06/16 20:21 ; Admin Dose 20 MG; Start 11/03/16 at 21:00 ELVIN TEIXEIRA November 07, 2016 15:45
--- NOTE | 2016-11-07 16:32 | CONS ---
Date/Time of Note Date/Time of Note DATE: 11/07/16 TIME: 16:30 Assessment/Plan Assessment/Plan Chief Complaint/Hosp Course IMPRESSION: 1. Tachyarrhythmia, most consistent with sinus tachycardia-overall improved and tolerating low dose BB 2. History of hypertension with stable blood pressures at this time. 3. Abnormal electrocardiogram with right axis deviation and nonspecific ST-T abnormalities, assess for acute coronary syndrome. 4. History of dyslipidemia. 5. Endometrial cancer status post 1 cycle of chemotherapy with Taxol and ifosfamide. 6. Leukocytosis, severe, assess for infection. 7. Hyponatremia-ongoing 8. Anemia. 9.Nausea Recc: -Now on med/surg -serial ecg's -Atenolol as tolerated -Follow HR/BP closely -Continue abx's and f/u cx data Problems: Consultation Date/Type/Reason Admit Date/Time Oct 10, 2016 at 09:46 Initial Consult Date 10/12/16 Type of Consultation: Cardiology Reason for Consultation Tachycardia/abnl ecg Referring Provider: ARLENE CHOWDARY MD Exam/Review of Systems Vital Signs Vitals Vital Signs Date Time Temp Pulse Resp B/P Pulse Ox O2 Delivery O2 Flow Rate FiO2 11/07/16 07:00 98.7 80 20 119/60 98 11/03/16 20:30 Nasal Cannula Intake and Output 11/06/16 11/06/16 11/07/16 15:00 23:00 07:00 Intake Total 1490 ml 340 ml Output Total 120 ml 1925 ml 1060 ml Balance -120 ml -435 ml -720 ml Exam Review of Systems: CONSTITUTIONAL: No fevers, chills. PULMONARY: No sob CARDIOVASCULAR: No chest pain/palpitations GASTROINTESTINAL: No nausea/vomiting. GENITOURINARY: No hematuria/dysuria. MUSCULOSKELETAL: No myagias/arthalgias. PSYCHIATRIC: The patient denies depression. NEUROLOGIC: No weakness Constitutional: alert Psych: no complaints Head: normocephalic ENMT: mucosa pink and moist Neck: jvd (8 cm water), supple Respiratory: clear to auscultation Gastrointestinal: other (midline incision with ag c/d/i), soft Musculoskeletal: muscle tone (normal) Extremities: edema (none) Neurological: other (No focal deficits) Results Result Diagram: 5/10/17 0430 5/10/17 0430 Results 24 hrs Laboratory Tests Test 11/07/16 04:30 White Blood Count 19.2 #H Red Blood Count 3.20 L Hemoglobin 9.0 L Hematocrit 28.7 L Mean Corpuscular Volume 89.7 Mean Corpuscular Hemoglobin 28.1 L Mean Corpuscular Hemoglobin Concent 31.4 L Red Cell Distribution Width 14.1 Platelet Count 320 Mean Platelet Volume 9.5 Neutrophils % 64.8 Lymphocytes % 4.2 L Monocytes % 13.4 H Eosinophils % 0.0 Basophils % 0.2 Nucleated Red Blood Cells % 0.5 H Neutrophils # 12.5 H Lymphocytes # 0.8 Monocytes # 2.6 H Eosinophils # 0.0 Basophils # 0.0 Nucleated Red Blood Cells # 0.1 H Sodium Level 138 Potassium Level 3.8 Chloride Level 103 Carbon Dioxide Level 31 Anion Gap 8 Blood Urea Nitrogen 5 L Creatinine 0.58 Glucose Level 86 Calcium Level 7.7 L Medications Medications Current Medications Dimethicone (Blistex Lip [place]) 1 applic Q2H PRN TOP CHAPPED LIPS; Start at 09:30 Diphenhydramine HCl (Benadryl) 25 mg Q6H PRN IV ITCHING Last administered on 06:34; Admin Dose 25 MG; Start 10/11/16 at 16:19 Hydralazine HCl 10 mg 10 mg Q4H PRN IV ELEVATED BLOOD PRESSURE; Start 10/15/16 at 10:00 Acetaminophen (Ofirmev 1000mg/ 100ml Iv) 100 ml @ 400 mls/hr Q6H PRN IVPB HEADACHE Last administered on 10/27/16 09:48; Admin Dose 400 MLS/HR; Start at 10:00 IV Flush (NS 10 ml) 10 ml PRN PRN IV FLUSH LINE Last administered on 10/22/16 20:40; Admin Dose 10 ML; Start 10/16/16 at 11:00 Tramadol HCl (Ultram) 50 mg Q6H PRN PO PAIN LEVEL 6-10 Last administered on 10/29 01:56; Admin Dose 50 MG; Start 10/19/16 at 23:00 Hydromorphone HCl (Dilaudid) 0.5 mg Q8 PRN IV PAIN Last administered on 01:26; Admin Dose 0.5 MG; Start 10/23/16 at 06:00 Pantoprazole 40 mg 40 mg DAILY@06 PO Last administered on 11/07/16 05:14; Admin Dose 40 MG; Start 10/25/16 at 06:00 Ondansetron HCl/ Dextrose (Zofran Inj/D5W) 54 ml @ 108 mls/hr Q8H PRN IV NAUSEA AND/OR VOMITING; Start 10/24/16 at 17:30 Prochlorperazine (Compazine Inj) 10 mg Q8H PRN IV NAUSEA AND/OR VOMITING Last administered on 10/30/16 23:25; Admin Dose 10 MG; Start 10/24/16 at 17:30 Hydrocortisone (Solu-Cortef) 100 mg PRN PRN IV ALLERGIC REACTION; Start at 22:00 Diphenhydramine HCl 50 mg 50 mg PRN PRN IV ALLERGIC REACTION; Start 10/25/16 at 22:00 Ceftriaxone Sodium (Rocephin) 50 ml @ 100 mls/hr Q24H IVPB Last administered on 11/06/16 17:36; Admin Dose 100 MLS/HR; Start 10/25/16 at 17:00 Bisacodyl (Dulcolax) 5 mg DAILY PRN PO CONSTIPATION Last administered on 10:31; Admin Dose 5 MG; Start 10/28/16 at 10:00 Ondansetron HCl (Zofran Inj) 4 mg Q6H PRN IV NAUSEA AND/OR VOMITING Last administered on 10/30/16 18:05; Admin Dose 4 MG; Start 10/29/16 at 09:00 Metoclopramide HCl (Reglan) 10 mg Q6H PRN IV NAUSEA; Start 10/31/16 at 09:00 Atenolol (Tenormin) 12.5 mg DAILY PO Last administered on 11/07/16 09:54; Admin Dose 12.5 MG; Start 11/03/16 at 09:00 Atorvastatin Calcium (Lipitor) 20 mg HS PO Last administered on 11/06/16 20:21 ; Admin Dose 20 MG; Start 11/03/16 at 21:00 BALDEMAR RIVERA November 07, 2016 16:32
[2016-11-07] MEDS: CEFTRIAXONE 1 GM/50 ML (PMX) 50 ML IVPB SCH (17:20)
[2016-11-07 19:00] VITALS: BP 103/60; RESP 18
[2016-11-07] MEDS: ATORVASTATIN 20 MG TAB PO SCH (20:21)
[2016-11-08 04:43] LABS: ADD SCAN DIFF NO
[2016-11-08 04:55] LABS: ABNORMAL IP MESSAGE 1; HEMATOCRIT 29.7 % (37.0-47.0); HEMOGLOBIN 9.4 g/dl (12.0-16.0); MEAN CORPUSCULAR HEMOGLOBIN 28.2 pg (29.0-33.0); MEAN CORPUSCULAR HGB CONC 31.6 g/dl (32.0-37.0); MEAN CORPUSCULAR VOLUME 89.2 fl (82.0-101.0); MEAN PLATELET VOLUME 9.3 fl (7.4-10.4); PLATELET COUNT 337 10^3/UL (140-415); RED BLOOD COUNT 3.33 10^6/ul (4.20-5.40); RED CELL DISTRIBUTION WIDTH 13.9 % (11.5-14.5); WHITE BLOOD COUNT 10.6 10^3/ul (4.8-10.8)
[2016-11-08] MEDS: PANTOPRAZOLE (EC) 40 MG TAB PO SCH (05:19)
[2016-11-08 05:24] LABS: POTASSIUM 3.7 mmol/L (3.5-5.1)
[2016-11-08 05:26] LABS: CREATININE 0.56 mg/dl (0.44-1.00)
[2016-11-08 05:27] LABS: CALCIUM 7.9 mg/dl (8.4-10.2)
[2016-11-08 08:12] VITALS: BP 112/63; RESP 19
[2016-11-08] MEDS: ATENOLOL 25 MG TAB PO SCH (08:55)
--- NOTE | 2016-11-08 10:34 | CONS ---
Date/Time of Note Date/Time of Note DATE: 11/08/16 TIME: 10:32 Assessment/Plan Assessment/Plan Additional Assessment/Plan 1. Hyponatremia, likely secondary to hypovolemic hyponatremia, but due to the patient receiving ifosfamide recently, 2. Hypoalbuminemia 3. Stage IV endometrial cancer status post surgery, CYNDI/BSO with en bloc resection and low anastomosis. Currently, received chemotherapy with ifosfamide. 4. History of hypertension. 5. History of hyperlipidemia. 6. History of gastritis. PLAN: s/p chemo with ifosfamide WBC improved to normal,. electrolytes stable today doing ok Pain control will follow up Consultation Date/Type/Reason Admit Date/Time Oct 10, 2016 at 09:46 Initial Consult Date Type of Consultation: NEPHROLOGY Referring Provider: ARLENE CHOWDARY MD 24 HR Interval Summary Free Text/Dictation WBC improved to 10.6, Electrolytes stable Exam/Review of Systems Vital Signs Vitals Vital Signs Date Time Temp Pulse Resp B/P Pulse Ox O2 Delivery O2 Flow Rate FiO2 11/08/16 08:12 98.0 80 19 112/63 98 Intake and Output 11/07/16 11/07/16 11/08/16 15:00 23:00 07:00 Intake Total 1550 ml 1400 ml Output Total 1940 ml 1760 ml Balance -390 ml -360 ml Exam Constitutional: alert, frail, oriented Psych: no complaints Head: normocephalic Eyes: nl conjunctiva ENMT: nl external ears & nose Neck: non-tender, supple Respiratory: clear to auscultation, normal air movement Cardiovascular: nl pulses, regular rate and rhythm Gastrointestinal: soft Musculoskeletal: bilateral lower extremity edema, nl gait and stance Results Result Diagram: 11/08/16 0425 11/08/16 0425 Results 24 hrs Laboratory Tests Test 11/08/16 04:25 White Blood Count 10.6 # Red Blood Count 3.33 L Hemoglobin 9.4 L Hematocrit 29.7 L Mean Corpuscular Volume 89.2 Mean Corpuscular Hemoglobin 28.2 L Mean Corpuscular Hemoglobin Concent 31.6 L Red Cell Distribution Width 13.9 Platelet Count 337 Mean Platelet Volume 9.3 Neutrophils % Eosinophils % Neutrophils # Eosinophils # Sodium Level 140 Potassium Level 3.7 Chloride Level 104 Carbon Dioxide Level 30 Anion Gap 10 Blood Urea Nitrogen 8 Creatinine 0.56 Glucose Level 91 Calcium Level 7.9 L Medications Medications Current Medications Dimethicone (Blistex Lip [place]) 1 applic Q2H PRN TOP CHAPPED LIPS; Start at 09:30 Diphenhydramine HCl (Benadryl) 25 mg Q6H PRN IV ITCHING Last administered on 06:34; Admin Dose 25 MG; Start 10/11/16 at 16:19 Hydralazine HCl 10 mg 10 mg Q4H PRN IV ELEVATED BLOOD PRESSURE; Start 10/15/16 at 10:00 Acetaminophen (Ofirmev 1000mg/ 100ml Iv) 100 ml @ 400 mls/hr Q6H PRN IVPB HEADACHE Last administered on 10/27/16 09:48; Admin Dose 400 MLS/HR; Start at 10:00 IV Flush (NS 10 ml) 10 ml PRN PRN IV FLUSH LINE Last administered on 10/22/16 20:40; Admin Dose 10 ML; Start 10/16/16 at 11:00 Tramadol HCl (Ultram) 50 mg Q6H PRN PO PAIN LEVEL 6-10 Last administered on 10/29 01:56; Admin Dose 50 MG; Start 10/19/16 at 23:00 Hydromorphone HCl (Dilaudid) 0.5 mg Q8 PRN IV PAIN Last administered on 01:26; Admin Dose 0.5 MG; Start 10/23/16 at 06:00 Pantoprazole 40 mg 40 mg DAILY@06 PO Last administered on 11/08/16 05:19; Admin Dose 40 MG; Start 10/25/16 at 06:00 Ondansetron HCl/ Dextrose (Zofran Inj/D5W) 54 ml @ 108 mls/hr Q8H PRN IV NAUSEA AND/OR VOMITING; Start 10/24/16 at 17:30 Prochlorperazine (Compazine Inj) 10 mg Q8H PRN IV NAUSEA AND/OR VOMITING Last administered on 10/30/16 23:25; Admin Dose 10 MG; Start 10/24/16 at 17:30 Hydrocortisone (Solu-Cortef) 100 mg PRN PRN IV ALLERGIC REACTION; Start at 22:00 Diphenhydramine HCl 50 mg 50 mg PRN PRN IV ALLERGIC REACTION; Start 10/25/16 at 22:00 Ceftriaxone Sodium (Rocephin) 50 ml @ 100 mls/hr Q24H IVPB Last administered on 11/07/16 17:20; Admin Dose 100 MLS/HR; Start 10/25/16 at 17:00 Bisacodyl (Dulcolax) 5 mg DAILY PRN PO CONSTIPATION Last administered on 10:31; Admin Dose 5 MG; Start 10/28/16 at 10:00 Ondansetron HCl (Zofran Inj) 4 mg Q6H PRN IV NAUSEA AND/OR VOMITING Last administered on 10/30/16 18:05; Admin Dose 4 MG; Start 10/29/16 at 09:00 Metoclopramide HCl (Reglan) 10 mg Q6H PRN IV NAUSEA; Start 10/31/16 at 09:00 Atenolol (Tenormin) 12.5 mg DAILY PO Last administered on 11/08/16 08:55; Admin Dose 12.5 MG; Start 11/03/16 at 09:00 Atorvastatin Calcium (Lipitor) 20 mg HS PO Last administered on 11/07/16 20:21 ; Admin Dose 20 MG; Start 11/03/16 at 21:00 DIANA COLLIER MD November 08, 2016 10:34
--- NOTE | 2016-11-08 13:41 | CONS ---
Date/Time of Note Date/Time of Note DATE: 11/08/16 TIME: 13:40 Assessment/Plan Assessment/Plan Chief Complaint/Hosp Course The patient is a 56-year-old female with recent diagnosis of endometrial cancer on 09/17/2016 by endometrial biopsy. The patient was diagnosed with stage IV endometrial cancer. She underwent CYNDI/BSO and recto-sigmoid en-bloc with low anastomosis per Dr. Bueno on 10/11/16. She had extensive positive retroperitoneal lymph nodes removed but the confluence of disease makes her classified as millimeter residual disease. - Path report showed metastatic carcinosarcoma. Per Dr. Kitchen of pathology, tumor is poorly differentiated though mostly sarcoma (90%) in the metastases. Ifosfamide/taxol with carbo taxol chemorx recommended: Dr. Bueno, would like to treat with 8 cycles of each regimen. Side effects including N/V, fatigue, myelosuppression, allergic reaction, confusion, hemorrhagic cystitis discussed with the patient. -Patient is now cycle 1 day 8 of ifosfamide/taxol 10/25/16, tolerated fairly well thus far. labs stable and continue supportive care. -Pt with tachycardia, possibly secondary to the taxol or dehydration, appreciate cardiology recs, now resolved -Ct A/P done 10/29/16 shows no evidence of acute intraabdominal process. known metastatic disease was seen. Prior CT A/P with and without contrast 10/02/16 demonstrated metastatic spread with bilateral right greater than left adnexal lesions, with areas of infiltration and nodularity within the right paracolic gutter and transverse mesocolon. 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 Currently there are no signs of encephalopathy with ifosfamide. - continue antiemetic support. Zofran 8mg IV q 6 started. Will consider given Akynzeo with next cycle - Avoid benzodiazepines or Ambien while receiving ifosfamide. - continue to monitor counts, no longer neutropenic. ANC dropped to 0.8 on , s/p neupogen 480 mcg 11/04/16 and 11/05/16, with subsequent leukocytosis likely related to prior neupogen. Now resolved. - cont to monitor HR and Na per primary team - cont ceftriaxone for UTI - PT eval, OOB per Dr. Bueno - Discharge planning per primary team. Patient will need to be re-admitted in approximately 11/15/16 for cycle 2 ifosfamide/taxol Chemo regimen (started 10/25/16) Ifosfamide 1600 mg/mg2 IV once per week D1-3 Paclitaxel 135 mg/m2 IV over 3 hours D1 [place] 2000 mg IV over 12 hours once per day (15 minutes before ifosfamide) D1-3 Decadron 20 mg PO 12 hours and 6 hours prior to paclitaxel Neupogen 480 mcg subcutaneous once per day starting D4 until ANC > 2000 Problems: Consultation Date/Type/Reason Admit Date/Time Oct 10, 2016 at 09:46 Initial Consult Date 10/12/16 Type of Consultation: Oncology Referring Provider: ARLENE CHOWDARY MD 24 HR Interval Summary Free Text/Dictation Patient has no complaints, doing well. Exam/Review of Systems Vital Signs Vitals Vital Signs Date Time Temp Pulse Resp B/P Pulse Ox O2 Delivery O2 Flow Rate FiO2 11/08/16 08:12 98.0 80 19 112/63 98 Intake and Output 11/07/16 11/07/16 11/08/16 15:00 23:00 07:00 Intake Total 1550 ml 1400 ml Output Total 1940 ml 1760 ml Balance -390 ml -360 ml Exam Constitutional: alert, frail, oriented Psych: no complaints Head: normocephalic Eyes: nl conjunctiva ENMT: nl external ears & nose Neck: non-tender, supple Respiratory: clear to auscultation, normal air movement Cardiovascular: nl pulses, regular rate and rhythm Gastrointestinal: soft Musculoskeletal: bilateral lower extremity edema, nl gait and stance Results Result Diagram: 11/08/16 0425 11/08/16 0425 Results 24 hrs Laboratory Tests Test 11/08/16 04:25 White Blood Count 10.6 # Red Blood Count 3.33 L Hemoglobin 9.4 L Hematocrit 29.7 L Mean Corpuscular Volume 89.2 Mean Corpuscular Hemoglobin 28.2 L Mean Corpuscular Hemoglobin Concent 31.6 L Red Cell Distribution Width 13.9 Platelet Count 337 Mean Platelet Volume 9.3 Neutrophils % Eosinophils % Neutrophils # Eosinophils # Sodium Level 140 Potassium Level 3.7 Chloride Level 104 Carbon Dioxide Level 30 Anion Gap 10 Blood Urea Nitrogen 8 Creatinine 0.56 Glucose Level 91 Calcium Level 7.9 L Medications Medications Current Medications Dimethicone (Blistex Lip [place]) 1 applic Q2H PRN TOP CHAPPED LIPS; Start at 09:30 Diphenhydramine HCl (Benadryl) 25 mg Q6H PRN IV ITCHING Last administered on 06:34; Admin Dose 25 MG; Start 10/11/16 at 16:19 Hydralazine HCl 10 mg 10 mg Q4H PRN IV ELEVATED BLOOD PRESSURE; Start 10/15/16 at 10:00 Acetaminophen (Ofirmev 1000mg/ 100ml Iv) 100 ml @ 400 mls/hr Q6H PRN IVPB HEADACHE Last administered on 10/27/16 09:48; Admin Dose 400 MLS/HR; Start at 10:00 IV Flush (NS 10 ml) 10 ml PRN PRN IV FLUSH LINE Last administered on 10/22/16 20:40; Admin Dose 10 ML; Start 10/16/16 at 11:00 Tramadol HCl (Ultram) 50 mg Q6H PRN PO PAIN LEVEL 6-10 Last administered on 10/29 01:56; Admin Dose 50 MG; Start 10/19/16 at 23:00 Hydromorphone HCl (Dilaudid) 0.5 mg Q8 PRN IV PAIN Last administered on 01:26; Admin Dose 0.5 MG; Start 10/23/16 at 06:00 Pantoprazole 40 mg 40 mg DAILY@06 PO Last administered on 11/08/16 05:19; Admin Dose 40 MG; Start 10/25/16 at 06:00 Ondansetron HCl/ Dextrose (Zofran Inj/D5W) 54 ml @ 108 mls/hr Q8H PRN IV NAUSEA AND/OR VOMITING; Start 10/24/16 at 17:30 Prochlorperazine (Compazine Inj) 10 mg Q8H PRN IV NAUSEA AND/OR VOMITING Last administered on 10/30/16 23:25; Admin Dose 10 MG; Start 10/24/16 at 17:30 Hydrocortisone (Solu-Cortef) 100 mg PRN PRN IV ALLERGIC REACTION; Start at 22:00 Diphenhydramine HCl 50 mg 50 mg PRN PRN IV ALLERGIC REACTION; Start 10/25/16 at 22:00 Ceftriaxone Sodium (Rocephin) 50 ml @ 100 mls/hr Q24H IVPB Last administered on 11/07/16 17:20; Admin Dose 100 MLS/HR; Start 10/25/16 at 17:00 Bisacodyl (Dulcolax) 5 mg DAILY PRN PO CONSTIPATION Last administered on 10:31; Admin Dose 5 MG; Start 10/28/16 at 10:00 Ondansetron HCl (Zofran Inj) 4 mg Q6H PRN IV NAUSEA AND/OR VOMITING Last administered on 10/30/16 18:05; Admin Dose 4 MG; Start 10/29/16 at 09:00 Metoclopramide HCl (Reglan) 10 mg Q6H PRN IV NAUSEA; Start 10/31/16 at 09:00 Atenolol (Tenormin) 12.5 mg DAILY PO Last administered on 11/08/16 08:55; Admin Dose 12.5 MG; Start 11/03/16 at 09:00 Atorvastatin Calcium (Lipitor) 20 mg HS PO Last administered on 11/07/16 20:21 ; Admin Dose 20 MG; Start 11/03/16 at 21:00 TOLINDA MD November 08, 2016 13:41
[2016-11-08 14:00] LABS: BASOPHIL # 0.3 10^3/ul (0.0-0.1); EOSINOPHILS # 0.1 10^3/ul (0.0-0.5); LYMPHOCYTES # 0.7 10^3/ul (0.8-2.9); MONOCYTE # 0.8 10^3/ul (0.3-0.9); MYELOCYTES # 0.4; NEUTROPHIL # 7.7 10^3/ul (1.6-7.5)
--- NOTE | 2016-11-08 14:09 | CONS ---
Date/Time of Note Date/Time of Note DATE: 11/08/16 TIME: 14:06 Assessment/Plan Assessment/Plan Chief Complaint/Hosp Course IMPRESSION: 1. Tachyarrhythmia, most consistent with sinus tachycardia-overall improved and tolerating low dose BB 2. History of hypertension with stable blood pressures at this time. 3. Abnormal electrocardiogram with right axis deviation and nonspecific ST-T abnormalities, assess for acute coronary syndrome. 4. History of dyslipidemia. 5. Endometrial cancer status post 1 cycle of chemotherapy with Taxol and ifosfamide. 6. Leukocytosis-slowly improving with holding of neupogen 7. Hyponatremia-now improved 8. Anemia. 9.Nausea Recc: -Now on med/surg -serial ecg's -Atenolol as tolerated -Follow HR/BP closely -Continue abx's and f/u cx data Problems: Consultation Date/Type/Reason Admit Date/Time Oct 10, 2016 at 09:46 Initial Consult Date 10/12/16 Type of Consultation: Cardiology Reason for Consultation Tachycardia Referring Provider: ARLENE CHOWDARY MD Exam/Review of Systems Vital Signs Vitals Vital Signs Date Time Temp Pulse Resp B/P Pulse Ox O2 Delivery O2 Flow Rate FiO2 11/08/16 08:12 98.0 80 19 112/63 98 Intake and Output 11/07/16 11/07/16 11/08/16 15:00 23:00 07:00 Intake Total 1550 ml 1400 ml Output Total 1940 ml 1760 ml Balance -390 ml -360 ml Exam Review of Systems: CONSTITUTIONAL: No fevers, chills. PULMONARY: No sob CARDIOVASCULAR: No chest pain/palpitations GASTROINTESTINAL: Mild abd discomfort GENITOURINARY: No hematuria/dysuria. MUSCULOSKELETAL: No myagias/arthalgias. PSYCHIATRIC: The patient denies depression. NEUROLOGIC: No weakness Constitutional: alert Psych: no complaints Head: normocephalic ENMT: mucosa pink and moist Neck: jvd (8 cm water), supple Respiratory: clear to auscultation Cardiovascular: regular rate and rhythm Gastrointestinal: soft, surgical scars (well healing with atplaes in place) Results Result Diagram: 11/08/16 0425 11/08/16 0425 Results 24 hrs Laboratory Tests Test 11/08/16 04:25 White Blood Count 10.6 # Red Blood Count 3.33 L Hemoglobin 9.4 L Hematocrit 29.7 L Mean Corpuscular Volume 89.2 Mean Corpuscular Hemoglobin 28.2 L Mean Corpuscular Hemoglobin Concent 31.6 L Red Cell Distribution Width 13.9 Platelet Count 337 Mean Platelet Volume 9.3 Neutrophils % 73.0 Lymphocytes % 7.0 L Monocytes % 8.0 Eosinophils % 1.0 Basophils % 3.0 H Myelocytes % 4.0 H Promyelocytes % 3.0 H Blast Cells % 1.0 H Neutrophils # 7.7 H Lymphocytes # 0.7 L Monocytes # 0.8 Eosinophils # 0.1 Basophils # 0.3 H Myelocytes # 0.4 Promyelocytes # 0.3 Blastocytes # 0.1 Sodium Level 140 Potassium Level 3.7 Chloride Level 104 Carbon Dioxide Level 30 Anion Gap 10 Blood Urea Nitrogen 8 Creatinine 0.56 Glucose Level 91 Calcium Level 7.9 L Medications Medications Current Medications Dimethicone (Blistex Lip [place]) 1 applic Q2H PRN TOP CHAPPED LIPS; Start at 09:30 Diphenhydramine HCl (Benadryl) 25 mg Q6H PRN IV ITCHING Last administered on 06:34; Admin Dose 25 MG; Start 10/11/16 at 16:19 Hydralazine HCl 10 mg 10 mg Q4H PRN IV ELEVATED BLOOD PRESSURE; Start 10/15/16 at 10:00 Acetaminophen (Ofirmev 1000mg/ 100ml Iv) 100 ml @ 400 mls/hr Q6H PRN IVPB HEADACHE Last administered on 10/27/16 09:48; Admin Dose 400 MLS/HR; Start at 10:00 IV Flush (NS 10 ml) 10 ml PRN PRN IV FLUSH LINE Last administered on 10/22/16 20:40; Admin Dose 10 ML; Start 10/16/16 at 11:00 Tramadol HCl (Ultram) 50 mg Q6H PRN PO PAIN LEVEL 6-10 Last administered on 10/29 01:56; Admin Dose 50 MG; Start 10/19/16 at 23:00 Hydromorphone HCl (Dilaudid) 0.5 mg Q8 PRN IV PAIN Last administered on 01:26; Admin Dose 0.5 MG; Start 10/23/16 at 06:00 Pantoprazole 40 mg 40 mg DAILY@06 PO Last administered on 11/08/16 05:19; Admin Dose 40 MG; Start 10/25/16 at 06:00 Ondansetron HCl/ Dextrose (Zofran Inj/D5W) 54 ml @ 108 mls/hr Q8H PRN IV NAUSEA AND/OR VOMITING; Start 10/24/16 at 17:30 Prochlorperazine (Compazine Inj) 10 mg Q8H PRN IV NAUSEA AND/OR VOMITING Last administered on 10/30/16 23:25; Admin Dose 10 MG; Start 10/24/16 at 17:30 Hydrocortisone (Solu-Cortef) 100 mg PRN PRN IV ALLERGIC REACTION; Start at 22:00 Diphenhydramine HCl 50 mg 50 mg PRN PRN IV ALLERGIC REACTION; Start 10/25/16 at 22:00 Ceftriaxone Sodium (Rocephin) 50 ml @ 100 mls/hr Q24H IVPB Last administered on 11/07/16 17:20; Admin Dose 100 MLS/HR; Start 10/25/16 at 17:00 Bisacodyl (Dulcolax) 5 mg DAILY PRN PO CONSTIPATION Last administered on 10:31; Admin Dose 5 MG; Start 10/28/16 at 10:00 Ondansetron HCl (Zofran Inj) 4 mg Q6H PRN IV NAUSEA AND/OR VOMITING Last administered on 10/30/16 18:05; Admin Dose 4 MG; Start 10/29/16 at 09:00 Metoclopramide HCl (Reglan) 10 mg Q6H PRN IV NAUSEA; Start 10/31/16 at 09:00 Atenolol (Tenormin) 12.5 mg DAILY PO Last administered on 11/08/16 08:55; Admin Dose 12.5 MG; Start 11/03/16 at 09:00 Atorvastatin Calcium (Lipitor) 20 mg HS PO Last administered on 11/07/16 20:21 ; Admin Dose 20 MG; Start 11/03/16 at 21:00 BALDEMAR RIVERA November 08, 2016 14:09
--- NOTE | 2016-11-08 16:32 | PN ---
Date/Time of Note Date/Time of Note DATE: 11/08/16 TIME: 16:31 Assessment/Plan VTE Prophylaxis VTE Prophylaxis Intervention: other Lines/Catheters IV Catheter Type (from [facility]): PICC Line Central line still needed: Yes Urinary Cath still in place: No Assessment/Plan Assessment/Plan - Stage IV endometrial cancer, status post surgical procedure with CYNDI/BSO and recto-sigmoid en-bloc with low anastomosis by Dr. Bueno on 10/11. Path report showed metastatic carcinosarcoma. Started on chemotherapy. Dr. Logan is following in oncology consultation. - Tachycardia, resolved. Dr. Oglesby is asked to see patient in cardiology consultation. - Hypertension. Continue hydralazine as needed for systolic blood pressure above 170. - Dyslipidemia. We will resume statins when patient is able to tolerate p.o. - Gastritis. Continue Protonix. - Hyponatremia, resolved. Dr. Cabrales is following in nephrology consultation. Further recommendations based on clinical course. Plan of care discussed with Dr. Richardson. Subjective 24 Hr Interval Summary Free Text/Dictation nad, sitting up in bed, family at bed side- all Qs answered. dw staff Constitutional: improved ENT: no complaints Respiratory: no complaints Cardiovascular: no complaints Gastrointestinal: other Musculoskeletal: no complaints Skin: no complaints Neurologic: no complaints Endocrine: no complaints Lymphatic: no complaints Psychological: no complaints Immunologic: no complaints Exam/Review of Systems Vital Signs Vitals Vital Signs Date Time Temp Pulse Resp B/P Pulse Ox O2 Delivery O2 Flow Rate FiO2 11/08/16 08:12 98.0 80 19 112/63 98 Intake and Output 11/07/16 11/07/16 11/08/16 15:00 23:00 07:00 Intake Total 1550 ml 1400 ml Output Total 1940 ml 1760 ml Balance -390 ml -360 ml Exam Constitutional: alert, oriented, well developed Psych: nl mood/affect Head: atraumatic Eyes: EOMI, nl sclera ENMT: nl external ears & nose Neck: non-tender Respiratory: clear to auscultation Cardiovascular: nl pulses Gastrointestinal: non-tender, other (ag noted- open to air, dry/intact.), soft Musculoskeletal: nl extremities to inspection Extremities: normal pulses Neurological: nl mental status, nl speech Skin: other Lymph: nontender Results Result Diagram: 11/08/16 0425 11/08/16 0425 Results 24 hrs Laboratory Tests Test 11/08/16 04:25 White Blood Count 10.6 # Red Blood Count 3.33 L Hemoglobin 9.4 L Hematocrit 29.7 L Mean Corpuscular Volume 89.2 Mean Corpuscular Hemoglobin 28.2 L Mean Corpuscular Hemoglobin Concent 31.6 L Red Cell Distribution Width 13.9 Platelet Count 337 Mean Platelet Volume 9.3 Neutrophils % 73.0 Lymphocytes % 7.0 L Monocytes % 8.0 Eosinophils % 1.0 Basophils % 3.0 H Myelocytes % 4.0 H Promyelocytes % 3.0 H Blast Cells % 1.0 H Neutrophils # 7.7 H Lymphocytes # 0.7 L Monocytes # 0.8 Eosinophils # 0.1 Basophils # 0.3 H Myelocytes # 0.4 Promyelocytes # 0.3 Blastocytes # 0.1 Sodium Level 140 Potassium Level 3.7 Chloride Level 104 Carbon Dioxide Level 30 Anion Gap 10 Blood Urea Nitrogen 8 Creatinine 0.56 Glucose Level 91 Calcium Level 7.9 L Medications Medications Current Medications Dimethicone (Blistex Lip [place]) 1 applic Q2H PRN TOP CHAPPED LIPS; Start at 09:30 Diphenhydramine HCl (Benadryl) 25 mg Q6H PRN IV ITCHING Last administered on 06:34; Admin Dose 25 MG; Start 10/11/16 at 16:19 Hydralazine HCl 10 mg 10 mg Q4H PRN IV ELEVATED BLOOD PRESSURE; Start 10/15/16 at 10:00 Acetaminophen (Ofirmev 1000mg/ 100ml Iv) 100 ml @ 400 mls/hr Q6H PRN IVPB HEADACHE Last administered on 10/27/16 09:48; Admin Dose 400 MLS/HR; Start at 10:00 IV Flush (NS 10 ml) 10 ml PRN PRN IV FLUSH LINE Last administered on 10/22/16 20:40; Admin Dose 10 ML; Start 10/16/16 at 11:00 Tramadol HCl (Ultram) 50 mg Q6H PRN PO PAIN LEVEL 6-10 Last administered on 10/29 01:56; Admin Dose 50 MG; Start 10/19/16 at 23:00 Hydromorphone HCl (Dilaudid) 0.5 mg Q8 PRN IV PAIN Last administered on 01:26; Admin Dose 0.5 MG; Start 10/23/16 at 06:00 Pantoprazole 40 mg 40 mg DAILY@06 PO Last administered on 11/08/16 05:19; Admin Dose 40 MG; Start 10/25/16 at 06:00 Ondansetron HCl/ Dextrose (Zofran Inj/D5W) 54 ml @ 108 mls/hr Q8H PRN IV NAUSEA AND/OR VOMITING; Start 10/24/16 at 17:30 Prochlorperazine (Compazine Inj) 10 mg Q8H PRN IV NAUSEA AND/OR VOMITING Last administered on 10/30/16 23:25; Admin Dose 10 MG; Start 10/24/16 at 17:30 Hydrocortisone (Solu-Cortef) 100 mg PRN PRN IV ALLERGIC REACTION; Start at 22:00 Diphenhydramine HCl 50 mg 50 mg PRN PRN IV ALLERGIC REACTION; Start 10/25/16 at 22:00 Ceftriaxone Sodium (Rocephin) 50 ml @ 100 mls/hr Q24H IVPB Last administered on 11/07/16 17:20; Admin Dose 100 MLS/HR; Start 10/25/16 at 17:00 Bisacodyl (Dulcolax) 5 mg DAILY PRN PO CONSTIPATION Last administered on 10:31; Admin Dose 5 MG; Start 10/28/16 at 10:00 Ondansetron HCl (Zofran Inj) 4 mg Q6H PRN IV NAUSEA AND/OR VOMITING Last administered on 10/30/16 18:05; Admin Dose 4 MG; Start 10/29/16 at 09:00 Metoclopramide HCl (Reglan) 10 mg Q6H PRN IV NAUSEA; Start 10/31/16 at 09:00 Atenolol (Tenormin) 12.5 mg DAILY PO Last administered on 11/08/16 08:55; Admin Dose 12.5 MG; Start 11/03/16 at 09:00 Atorvastatin Calcium (Lipitor) 20 mg HS PO Last administered on 11/07/16 20:21 ; Admin Dose 20 MG; Start 11/03/16 at 21:00 LATRICIA GABRIEL November 08, 2016 16:32
[2016-11-08] MEDS: CEFTRIAXONE 1 GM/50 ML (PMX) 50 ML IVPB SCH (17:00)
[2016-11-08 19:45] VITALS: BP 108/68; RESP 20
[2016-11-08] MEDS: ATORVASTATIN 20 MG TAB PO SCH (21:13)
[2016-11-09 05:02] LABS: ADD SCAN DIFF NO
[2016-11-09 05:07] LABS: ABNORMAL IP MESSAGE 1; BASOPHIL # 0.1 10^3/ul (0.0-0.1); BASOPHILS % 0.8 % (0.0-2.0); HEMATOCRIT 29.9 % (37.0-47.0); HEMOGLOBIN 9.4 g/dl (12.0-16.0); LYMPHOCYTES # 0.8 10^3/ul (0.8-2.9); LYMPHOCYTES % 10.8 % (15.0-51.0); MEAN CORPUSCULAR HEMOGLOBIN 28.2 pg (29.0-33.0); MEAN CORPUSCULAR HGB CONC 31.4 g/dl (32.0-37.0); MEAN CORPUSCULAR VOLUME 89.8 fl (82.0-101.0); MEAN PLATELET VOLUME 9.1 fl (7.4-10.4); MONOCYTE # 0.7 10^3/ul (0.3-0.9); MONOCYTES % 9.2 % (0.0-11.0); NEUTROPHIL # 4.8 10^3/ul (1.6-7.5); NEUTROPHILS % 63.4 % (39.0-77.0); NUCLEATED RED BLOOD CELLS% 0.4 /100WBC (0.0-0.0); PLATELET COUNT 337 10^3/UL (140-415); RED BLOOD COUNT 3.33 10^6/ul (4.20-5.40); RED CELL DISTRIBUTION WIDTH 13.8 % (11.5-14.5); WHITE BLOOD COUNT 7.5 10^3/ul (4.8-10.8)
[2016-11-09 05:39] LABS: POTASSIUM 3.8 mmol/L (3.5-5.1)
[2016-11-09 05:41] LABS: CREATININE 0.55 mg/dl (0.44-1.00)
[2016-11-09 05:42] LABS: CALCIUM 7.8 mg/dl (8.4-10.2)
[2016-11-09] MEDS: PANTOPRAZOLE (EC) 40 MG TAB PO SCH (05:56)
[2016-11-09 08:05] VITALS: BP 101/56; RESP 19
[2016-11-09] MEDS: ATENOLOL 25 MG TAB PO SCH (09:00)
--- NOTE | 2016-11-09 09:18 | CONS ---
Date/Time of Note Date/Time of Note DATE: 11/09/16 TIME: 09:18 Assessment/Plan Assessment/Plan Chief Complaint/Hosp Course The patient is a 56-year-old female with recent diagnosis of endometrial cancer on 09/17/2016 by endometrial biopsy. The patient was diagnosed with stage IV endometrial cancer. She underwent CYNDI/BSO and recto-sigmoid en-bloc with low anastomosis per Dr. Bueno on 10/11/16. She had extensive positive retroperitoneal lymph nodes removed but the confluence of disease makes her classified as millimeter residual disease. - Path report showed metastatic carcinosarcoma. Per Dr. Kitchen of pathology, tumor is poorly differentiated though mostly sarcoma (90%) in the metastases. Ifosfamide/taxol with carbo taxol chemorx recommended: Dr. Bueno, would like to treat with 8 cycles of each regimen. Side effects including N/V, fatigue, myelosuppression, allergic reaction, confusion, hemorrhagic cystitis discussed with the patient. -Patient is now cycle 1 day 8 of ifosfamide/taxol 10/25/16, tolerated fairly well thus far. labs stable and continue supportive care. -Pt with tachycardia, possibly secondary to the taxol or dehydration, appreciate cardiology recs, now resolved -Ct A/P done 10/29/16 shows no evidence of acute intraabdominal process. known metastatic disease was seen. Prior CT A/P with and without contrast 10/02/16 demonstrated metastatic spread with bilateral right greater than left adnexal lesions, with areas of infiltration and nodularity within the right paracolic gutter and transverse mesocolon. Recs - continue to monitor for AIRSET CASTER symptoms. Currently there are no signs of encephalopathy with ifosfamide. - continue antiemetic support. Zofran 8mg IV q 6 started. Will consider given Akynzeo with next cycle - Avoid benzodiazepines or Ambien while receiving ifosfamide. - continue to monitor counts, no longer neutropenic. ANC dropped to 0.8 on , s/p neupogen 480 mcg 11/04/16 and 11/05/16, with subsequent leukocytosis likely related to prior neupogen. Now resolved. - cont to monitor HR and Na per primary team - cont ceftriaxone for UTI - PT eval, OOB per Dr. Bueno - Discharge planning per primary team. Patient will need to be re-admitted in approximately 11/15/16 for cycle 2 ifosfamide/taxol Chemo regimen (started 10/25/16) Ifosfamide 1600 mg/mg2 IV once per week D1-3 Paclitaxel 135 mg/m2 IV over 3 hours D1 [place] 2000 mg IV over 12 hours once per day (15 minutes before ifosfamide) D1-3 Decadron 20 mg PO 12 hours and 6 hours prior to paclitaxel Neupogen 480 mcg subcutaneous once per day starting D4 until ANC > 2000 Problems: Consultation Date/Type/Reason Admit Date/Time Oct 10, 2016 at 09:46 Initial Consult Date 10/12/16 Type of Consultation: Oncology Referring Provider: ARLENE CHOWDARY MD 24 HR Interval Summary Free Text/Dictation Patient is doing well, no complaints. Exam/Review of Systems Vital Signs Vitals Vital Signs Date Time Temp Pulse Resp B/P Pulse Ox O2 Delivery O2 Flow Rate FiO2 11/09/16 08:05 98.0 74 19 101/56 98 Intake and Output 11/08/16 11/08/16 11/09/16 15:00 23:00 07:00 Intake Total 960 ml 700 ml Output Total 1040 ml 180 ml Balance -80 ml 520 ml Exam Constitutional: alert, frail, oriented Psych: no complaints Head: normocephalic Eyes: nl conjunctiva ENMT: nl external ears & nose Neck: non-tender, supple Respiratory: clear to auscultation, normal air movement Cardiovascular: nl pulses, regular rate and rhythm Gastrointestinal: soft Musculoskeletal: bilateral lower extremity edema, nl gait and stance Results Result Diagram: 11/09/16 0430 11/09/16 0430 Results 24 hrs Laboratory Tests Test 11/09/16 04:30 White Blood Count 7.5 # Red Blood Count 3.33 L Hemoglobin 9.4 L Hematocrit 29.9 L Mean Corpuscular Volume 89.8 Mean Corpuscular Hemoglobin 28.2 L Mean Corpuscular Hemoglobin Concent 31.4 L Red Cell Distribution Width 13.8 Platelet Count 337 Mean Platelet Volume 9.1 Neutrophils % 63.4 Lymphocytes % 10.8 L Monocytes % 9.2 Eosinophils % 0.0 Basophils % 0.8 Nucleated Red Blood Cells % 0.4 H Neutrophils # 4.8 Lymphocytes # 0.8 Monocytes # 0.7 Eosinophils # 0.0 Basophils # 0.1 Nucleated Red Blood Cells # 0.0 Sodium Level 138 Potassium Level 3.8 Chloride Level 105 Carbon Dioxide Level 29 Anion Gap 8 Blood Urea Nitrogen 11 Creatinine 0.55 Glucose Level 95 Calcium Level 7.8 L Medications Medications Current Medications Dimethicone (Blistex Lip [place]) 1 applic Q2H PRN TOP CHAPPED LIPS; Start at 09:30 Diphenhydramine HCl (Benadryl) 25 mg Q6H PRN IV ITCHING Last administered on 06:34; Admin Dose 25 MG; Start 10/11/16 at 16:19 Hydralazine HCl 10 mg 10 mg Q4H PRN IV ELEVATED BLOOD PRESSURE; Start 10/15/16 at 10:00 Acetaminophen (Ofirmev 1000mg/ 100ml Iv) 100 ml @ 400 mls/hr Q6H PRN IVPB HEADACHE Last administered on 10/27/16 09:48; Admin Dose 400 MLS/HR; Start at 10:00 IV Flush (NS 10 ml) 10 ml PRN PRN IV FLUSH LINE Last administered on 10/22/16 20:40; Admin Dose 10 ML; Start 10/16/16 at 11:00 Tramadol HCl (Ultram) 50 mg Q6H PRN PO PAIN LEVEL 6-10 Last administered on 10/29 01:56; Admin Dose 50 MG; Start 10/19/16 at 23:00 Hydromorphone HCl (Dilaudid) 0.5 mg Q8 PRN IV PAIN Last administered on 01:26; Admin Dose 0.5 MG; Start 10/23/16 at 06:00 Pantoprazole 40 mg 40 mg DAILY@06 PO Last administered on 11/09/16 05:56; Admin Dose 40 MG; Start 10/25/16 at 06:00 Ondansetron HCl/ Dextrose (Zofran Inj/D5W) 54 ml @ 108 mls/hr Q8H PRN IV NAUSEA AND/OR VOMITING; Start 10/24/16 at 17:30 Prochlorperazine (Compazine Inj) 10 mg Q8H PRN IV NAUSEA AND/OR VOMITING Last administered on 10/30/16 23:25; Admin Dose 10 MG; Start 10/24/16 at 17:30 Hydrocortisone (Solu-Cortef) 100 mg PRN PRN IV ALLERGIC REACTION; Start at 22:00 Diphenhydramine HCl 50 mg 50 mg PRN PRN IV ALLERGIC REACTION; Start 10/25/16 at 22:00 Ceftriaxone Sodium (Rocephin) 50 ml @ 100 mls/hr Q24H IVPB Last administered on 11/08/16 17:00; Admin Dose 100 MLS/HR; Start 10/25/16 at 17:00 Bisacodyl (Dulcolax) 5 mg DAILY PRN PO CONSTIPATION Last administered on 10:31; Admin Dose 5 MG; Start 10/28/16 at 10:00 Ondansetron HCl (Zofran Inj) 4 mg Q6H PRN IV NAUSEA AND/OR VOMITING Last administered on 10/30/16 18:05; Admin Dose 4 MG; Start 10/29/16 at 09:00 Metoclopramide HCl (Reglan) 10 mg Q6H PRN IV NAUSEA; Start 10/31/16 at 09:00 Atenolol (Tenormin) 12.5 mg DAILY PO Last administered on 11/08/16 08:55; Admin Dose 12.5 MG; Start 11/03/16 at 09:00 Atorvastatin Calcium (Lipitor) 20 mg HS PO Last administered on 11/08/16 21:13 ; Admin Dose 20 MG; Start 11/03/16 at 21:00 LINDA SWANSON MD November 09, 2016 09:18
--- NOTE | 2016-11-09 10:56 | CONS ---
Date/Time of Note Date/Time of Note DATE: 11/09/16 TIME: 10:54 Assessment/Plan Assessment/Plan Additional Assessment/Plan 1. Hyponatremia, likely secondary to hypovolemic hyponatremia, but due to the patient receiving ifosfamide recently, 2. Hypoalbuminemia 3. Stage IV endometrial cancer status post surgery, CYNDI/BSO with en bloc resection and low anastomosis. Currently, received chemotherapy with ifosfamide. 4. History of hypertension. 5. History of hyperlipidemia. 6. History of gastritis. PLAN: s/p chemo with ifosfamide plan for Cycle 2 chemo on 11/15/16 WBC improved to normal,. electrolytes and Creatinine stable today doing ok Pain control will follow up Consultation Date/Type/Reason Admit Date/Time Oct 10, 2016 at 09:46 Initial Consult Date Type of Consultation: NEPHROLOGY Referring Provider: ARLENE CHOWDARY MD 24 HR Interval Summary Free Text/Dictation Hb 9.4, Electrolyes and Cr better stable today Exam/Review of Systems Vital Signs Vitals Vital Signs Date Time Temp Pulse Resp B/P Pulse Ox O2 Delivery O2 Flow Rate FiO2 11/09/16 08:05 98.0 74 19 101/56 98 Intake and Output 11/08/16 11/08/16 11/09/16 15:00 23:00 07:00 Intake Total 960 ml 700 ml Output Total 1040 ml 180 ml Balance -80 ml 520 ml Results Result Diagram: 11/09/16 0430 11/09/16 0430 Results 24 hrs Laboratory Tests Test 11/09/16 04:30 White Blood Count 7.5 # Red Blood Count 3.33 L Hemoglobin 9.4 L Hematocrit 29.9 L Mean Corpuscular Volume 89.8 Mean Corpuscular Hemoglobin 28.2 L Mean Corpuscular Hemoglobin Concent 31.4 L Red Cell Distribution Width 13.8 Platelet Count 337 Mean Platelet Volume 9.1 Neutrophils % 63.4 Lymphocytes % 10.8 L Monocytes % 9.2 Eosinophils % 0.0 Basophils % 0.8 Nucleated Red Blood Cells % 0.4 H Neutrophils # 4.8 Lymphocytes # 0.8 Monocytes # 0.7 Eosinophils # 0.0 Basophils # 0.1 Nucleated Red Blood Cells # 0.0 Sodium Level 138 Potassium Level 3.8 Chloride Level 105 Carbon Dioxide Level 29 Anion Gap 8 Blood Urea Nitrogen 11 Creatinine 0.55 Glucose Level 95 Calcium Level 7.8 L Medications Medications Current Medications Dimethicone (Blistex Lip [place]) 1 applic Q2H PRN TOP CHAPPED LIPS; Start at 09:30 Diphenhydramine HCl (Benadryl) 25 mg Q6H PRN IV ITCHING Last administered on 06:34; Admin Dose 25 MG; Start 10/11/16 at 16:19 Hydralazine HCl 10 mg 10 mg Q4H PRN IV ELEVATED BLOOD PRESSURE; Start 10/15/16 at 10:00 Acetaminophen (Ofirmev 1000mg/ 100ml Iv) 100 ml @ 400 mls/hr Q6H PRN IVPB HEADACHE Last administered on 10/27/16 09:48; Admin Dose 400 MLS/HR; Start at 10:00 IV Flush (NS 10 ml) 10 ml PRN PRN IV FLUSH LINE Last administered on 10/22/16 20:40; Admin Dose 10 ML; Start 10/16/16 at 11:00 Tramadol HCl (Ultram) 50 mg Q6H PRN PO PAIN LEVEL 6-10 Last administered on 10/29 01:56; Admin Dose 50 MG; Start 10/19/16 at 23:00 Hydromorphone HCl (Dilaudid) 0.5 mg Q8 PRN IV PAIN Last administered on 01:26; Admin Dose 0.5 MG; Start 10/23/16 at 06:00 Pantoprazole 40 mg 40 mg DAILY@06 PO Last administered on 11/09/16 05:56; Admin Dose 40 MG; Start 10/25/16 at 06:00 Ondansetron HCl/ Dextrose (Zofran Inj/D5W) 54 ml @ 108 mls/hr Q8H PRN IV NAUSEA AND/OR VOMITING; Start 10/24/16 at 17:30 Prochlorperazine (Compazine Inj) 10 mg Q8H PRN IV NAUSEA AND/OR VOMITING Last administered on 10/30/16 23:25; Admin Dose 10 MG; Start 10/24/16 at 17:30 Hydrocortisone (Solu-Cortef) 100 mg PRN PRN IV ALLERGIC REACTION; Start at 22:00 Diphenhydramine HCl 50 mg 50 mg PRN PRN IV ALLERGIC REACTION; Start 10/25/16 at 22:00 Ceftriaxone Sodium (Rocephin) 50 ml @ 100 mls/hr Q24H IVPB Last administered on 11/08/16 17:00; Admin Dose 100 MLS/HR; Start 10/25/16 at 17:00 Bisacodyl (Dulcolax) 5 mg DAILY PRN PO CONSTIPATION Last administered on 10:31; Admin Dose 5 MG; Start 10/28/16 at 10:00 Ondansetron HCl (Zofran Inj) 4 mg Q6H PRN IV NAUSEA AND/OR VOMITING Last administered on 10/30/16 18:05; Admin Dose 4 MG; Start 10/29/16 at 09:00 Metoclopramide HCl (Reglan) 10 mg Q6H PRN IV NAUSEA; Start 10/31/16 at 09:00 Atenolol (Tenormin) 12.5 mg DAILY PO Last administered on 11/08/16 08:55; Admin Dose 12.5 MG; Start 11/03/16 at 09:00 Atorvastatin Calcium (Lipitor) 20 mg HS PO Last administered on 11/08/16 21:13 ; Admin Dose 20 MG; Start 11/03/16 at 21:00 DIANA COLLIER MD November 09, 2016 10:56
[2016-11-09] MEDS ORDERED: NEOMYC/POLYMYX/BACIT 0.9 GM OINT ONE (11:40)
--- NOTE | 2016-11-09 15:17 | CONS ---
Date/Time of Note Date/Time of Note DATE: 11/09/16 TIME: 15:13 Assessment/Plan Assessment/Plan Chief Complaint/Hosp Course IMPRESSION: 1. Tachyarrhythmia, most consistent with sinus tachycardia-overall improved and tolerating low dose BB 2. History of hypertension with stable blood pressures at this time. 3. Abnormal electrocardiogram with right axis deviation and nonspecific ST-T abnormalities, assess for acute coronary syndrome. 4. History of dyslipidemia. 5. Endometrial cancer status post 1 cycle of chemotherapy with Taxol and ifosfamide. 6. Leukocytosis-improved/resolved 7. Hyponatremia-now improved 8. Anemia. 9.Nausea Recc: -Now on med/surg -serial ecg's -Atenolol as tolerated -Follow HR/BP closely -Continue abx's and f/u cx data -Follow drain output Problems: Consultation Date/Type/Reason Admit Date/Time Oct 10, 2016 at 09:46 Initial Consult Date 10/12/16 Type of Consultation: Cardiology Reason for Consultation HTN Referring Provider: ARLENE CHOWDARY MD Exam/Review of Systems Vital Signs Vitals Vital Signs Date Time Temp Pulse Resp B/P Pulse Ox O2 Delivery O2 Flow Rate FiO2 11/09/16 08:05 98.0 74 19 101/56 98 Intake and Output 11/08/16 11/08/16 11/09/16 15:00 23:00 07:00 Intake Total 960 ml 700 ml Output Total 1040 ml 180 ml Balance -80 ml 520 ml Exam Review of Systems: CONSTITUTIONAL: No fevers, chills. PULMONARY: No sob CARDIOVASCULAR: No chest pain/palpitations GASTROINTESTINAL: No nausea/vomiting. GENITOURINARY: No hematuria/dysuria. MUSCULOSKELETAL: No myagias/arthalgias. PSYCHIATRIC: The patient denies depression. NEUROLOGIC: No weakness Constitutional: alert Psych: no complaints Head: normocephalic Neck: jvd (9 cm), supple Respiratory: diminished breath sounds Cardiovascular: regular rate and rhythm Gastrointestinal: non-tender, other (Drain in place), soft, surgical scars ( midline incision c/d/i) Musculoskeletal: muscle tone Extremities: edema (none) Neurological: other (NO focal deficits) Results Result Diagram: 11/09/16 0430 11/09/16 0430 Results 24 hrs Laboratory Tests Test 11/09/16 04:30 White Blood Count 7.5 # Red Blood Count 3.33 L Hemoglobin 9.4 L Hematocrit 29.9 L Mean Corpuscular Volume 89.8 Mean Corpuscular Hemoglobin 28.2 L Mean Corpuscular Hemoglobin Concent 31.4 L Red Cell Distribution Width 13.8 Platelet Count 337 Mean Platelet Volume 9.1 Neutrophils % 63.4 Lymphocytes % 10.8 L Monocytes % 9.2 Eosinophils % 0.0 Basophils % 0.8 Nucleated Red Blood Cells % 0.4 H Neutrophils # 4.8 Lymphocytes # 0.8 Monocytes # 0.7 Eosinophils # 0.0 Basophils # 0.1 Nucleated Red Blood Cells # 0.0 Sodium Level 138 Potassium Level 3.8 Chloride Level 105 Carbon Dioxide Level 29 Anion Gap 8 Blood Urea Nitrogen 11 Creatinine 0.55 Glucose Level 95 Calcium Level 7.8 L Medications Medications Current Medications Dimethicone (Blistex Lip Vansant) 1 applic Q2H PRN TOP CHAPPED LIPS; Start at 09:30 Diphenhydramine HCl (Benadryl) 25 mg Q6H PRN IV ITCHING Last administered on 06:34; Admin Dose 25 MG; Start 10/11/16 at 16:19 Hydralazine HCl 10 mg 10 mg Q4H PRN IV ELEVATED BLOOD PRESSURE; Start 10/15/16 at 10:00 Acetaminophen (Ofirmev 1000mg/ 100ml Iv) 100 ml @ 400 mls/hr Q6H PRN IVPB HEADACHE Last administered on 10/27/16 09:48; Admin Dose 400 MLS/HR; Start at 10:00 IV Flush (NS 10 ml) 10 ml PRN PRN IV FLUSH LINE Last administered on 10/22/16 20:40; Admin Dose 10 ML; Start 10/16/16 at 11:00 Tramadol HCl (Ultram) 50 mg Q6H PRN PO PAIN LEVEL 6-10 Last administered on 10/29 01:56; Admin Dose 50 MG; Start 10/19/16 at 23:00 Hydromorphone HCl (Dilaudid) 0.5 mg Q8 PRN IV PAIN Last administered on 01:26; Admin Dose 0.5 MG; Start 10/23/16 at 06:00 Pantoprazole 40 mg 40 mg DAILY@06 PO Last administered on 11/09/16 05:56; Admin Dose 40 MG; Start 10/25/16 at 06:00 Ondansetron HCl/ Dextrose (Zofran Inj/D5W) 54 ml @ 108 mls/hr Q8H PRN IV NAUSEA AND/OR VOMITING; Start 10/24/16 at 17:30 Prochlorperazine (Compazine Inj) 10 mg Q8H PRN IV NAUSEA AND/OR VOMITING Last administered on 10/30/16 23:25; Admin Dose 10 MG; Start 10/24/16 at 17:30 Hydrocortisone (Solu-Cortef) 100 mg PRN PRN IV ALLERGIC REACTION; Start at 22:00 Diphenhydramine HCl 50 mg 50 mg PRN PRN IV ALLERGIC REACTION; Start 10/25/16 at 22:00 Ceftriaxone Sodium (Rocephin) 50 ml @ 100 mls/hr Q24H IVPB Last administered on 11/08/16 17:00; Admin Dose 100 MLS/HR; Start 10/25/16 at 17:00 Bisacodyl (Dulcolax) 5 mg DAILY PRN PO CONSTIPATION Last administered on 10:31; Admin Dose 5 MG; Start 10/28/16 at 10:00 Ondansetron HCl (Zofran Inj) 4 mg Q6H PRN IV NAUSEA AND/OR VOMITING Last administered on 10/30/16 18:05; Admin Dose 4 MG; Start 10/29/16 at 09:00 Metoclopramide HCl (Reglan) 10 mg Q6H PRN IV NAUSEA; Start 10/31/16 at 09:00 Atenolol (Tenormin) 12.5 mg DAILY PO Last administered on 11/08/16 08:55; Admin Dose 12.5 MG; Start 11/03/16 at 09:00 Atorvastatin Calcium (Lipitor) 20 mg HS PO Last administered on 11/08/16 21:13 ; Admin Dose 20 MG; Start 11/03/16 at 21:00 BALDEMAR RIVERA November 09, 2016 15:17
--- NOTE | 2016-11-11 23:21 | DS ---
DATE OF ADMISSION: 10/10/2016 DATE OF DISCHARGE: 11/09/2016 FINAL DIAGNOSES: 1. Stage IV endometrial cancer with status post surgical procedure with total abdominal hysterectom y bilateral salpingo-oophorectomy and rectosigmoid en block with low anastomosis. 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 2. Postoperative tachycardia. 3. Hypertension. 4. Dyslipidemia. 5. Gastritis. 6. Hyponatremia, resolved. BRIEF HISTORY: The patient is a 56-year-old female who was diagnosed with endometrial cancer on by endometrial biopsy. The patient was evaluated by Dr. Bueno in surgical consultation a nd patient was brought to the hospital and underwent laparoscopy, modified posterior exenteration wi th low anastomosis, pelvic and periaortic lymph node dissection, bilateral ureteral dissection with repositioning, omentectomy with cytoreduction, vascular repaired without incident using laparoscopy. The patient was admitted for further management. HOSPITAL COURSE: The patient was evaluated and was followed by Dr. Bueno in surgical consultatio n. The patient also noted to have tachycardia and was evaluated by Dr. Oglesby in cardiology consul tation. The patient was also followed by Dr. Hoang in oncology consultation. The patient had severe p ain in immediate postoperative period and was on patient controlled analgesia; however, that eventua lly was removed and patient recovered per surgery; however, continues to have large output from BJ. The patient was also started on TPN and lipids. Gradually, the patient was started on clear liquid diet and advanced to regular diet. The patient was also started on chemotherapy since the patient' s past report showed metastatic carcinosarcoma. The patient received 1 of 8 cycles of ifosfamide/Ta xol and tolerated it fairly well. The patient was also closely monitored. The patient was noted to have hyponatremia and the patient was evaluated and followed by Dr. Cabrales. The patient was given I V fluids and electrolytes were closely monitored. The patient's condition improved and patient was discharged home. Case management asked for the approval of patient to be readmitted for the second cycle of chemotherapy on 11/15/2016 and also arranged for the home health for the PICC line care. T he patient is discharged home. CONDITION ON DISCHARGE: Hemodynamically stable. ACTIVITY: As patient tolerates. DIET: Regular diet. DISCHARGE MEDICATIONS: 1. The patient is given prescription for [place] p.r.n. for pain. 2. Omeprazole. DISCHARGE INSTRUCTIONS: The patient is instructed to follow up with Dr. Logan in oncology consultat ion and follow up with Dr. Bueno in surgical consultation in 1 week. Interdisciplinary plan of care was established for this patient. Plan of care was discussed with Dr Kane Chowdary. Dictated By: ELVIN TEIXEIRA [employer] for ARLENE CHOWDARY MD SR/NTS Conf#: [id number] DID#: [id number] CC: NUPUR BUENO MD;*EndCC*
== END 2016-11-09 19:45 | disposition home health service (06) | DRG 739 ==
LOC: REC 09:46 → EDSTATUS 13:30 → ICU 10-11 00:05 → MS1 10-11 12:55 → TEL 10-29 00:29 → MS1 11-06 22:29
PROVIDERS: ATTEND Internal Medicine
PROC: 0UT90ZZ Resection of Uterus, Open Approach (ICD-10-PCS; principal; 2016-10-11)
PROC: 0UT20ZZ Resection of Bilateral Ovaries, Open Approach (ICD-10-PCS; 2016-10-11)
PROC: 0UTC0ZZ Resection of Cervix, Open Approach (ICD-10-PCS; 2016-10-11)
PROC: [UNRECOGNIZED PROCEDURE] (2016-10-11)
PROC: 0DTS0ZZ (ICD-10-PCS; 2016-10-11)
PROC: 0D5V0ZZ Destruction of Mesentery, Open Approach (ICD-10-PCS; 2016-10-11)
PROC: 0DBN0ZZ Excision of Sigmoid Colon, Open Approach (ICD-10-PCS; 2016-10-11)
PROC: 0D5W0ZZ Destruction of Peritoneum, Open Approach (ICD-10-PCS; 2016-10-11)
PROC: 0DB80ZZ Excision of Small Intestine, Open Approach (ICD-10-PCS; 2016-10-11)
PROC: 0DBN0ZZ Excision of Sigmoid Colon, Open Approach (ICD-10-PCS; 2016-10-11)
PROC: 0DBP0ZZ Excision of Rectum, Open Approach (ICD-10-PCS; 2016-10-11)
PROC: 0D5 Gastrointestinal System, Destruction (ICD-10-PCS; 2016-10-11)
PROC: 0UT70ZZ Resection of Bilateral Fallopian Tubes, Open Approach (ICD-10-PCS; 2016-10-11)
PROC: 07BD0ZZ Excision of Aortic Lymphatic, Open Approach (ICD-10-PCS; 2016-10-11)
PROC: 07BC0ZZ Excision of Pelvis Lymphatic, Open Approach (ICD-10-PCS; 2016-10-11)
PROC: [UNRECOGNIZED PROCEDURE] (2016-10-11)
PROC: [UNRECOGNIZED PROCEDURE] (2016-10-11)
PROC: 0TN70ZZ Release Left Ureter, Open Approach (ICD-10-PCS; 2016-10-11)
PROC: 0TN60ZZ Release Right Ureter, Open Approach (ICD-10-PCS; 2016-10-11)
PROC: 0UJD4ZZ Inspection of Uterus and Cervix, Percutaneous Endoscopic Approach (ICD-10-PCS; 2016-10-11)
PROC: 30233N1 Transfusion of Nonautologous Red Blood Cells into Peripheral Vein, Percutaneous Approach (ICD-10-PCS; 2016-10-11)
PROC: 02HV33Z Insertion of Infusion Device into Superior Vena Cava, Percutaneous Approach (ICD-10-PCS; 2016-10-16)
PROC: 3E04305 Introduction of Other Antineoplastic into Central Vein, Percutaneous Approach (ICD-10-PCS; 2016-10-25)
DX: C54.1 Malignant neoplasm of endometrium (principal); D61.810 Antineoplastic chemotherapy induced pancytopenia; C77.5 Secondary and unspecified malignant neoplasm of intrapelvic lymph nodes; C78.4 Secondary malignant neoplasm of small intestine; C77.2 Secondary and unspecified malignant neoplasm of intra-abdominal lymph nodes; C78.6 Secondary malignant neoplasm of retroperitoneum and peritoneum; C78.5 Secondary malignant neoplasm of large intestine and rectum; N13.5 Crossing vessel and stricture of ureter without hydronephrosis; E87.1 Hypo-osmolality and hyponatremia; C79.82 Secondary malignant neoplasm of genital organs; C79.62 Secondary malignant neoplasm of left ovary; C79.61 Secondary malignant neoplasm of right ovary; C79.89 Secondary malignant neoplasm of other specified sites; N39.0 Urinary tract infection, site not specified; I10 Essential (primary) hypertension; E78.5 Hyperlipidemia, unspecified; R00.0 Tachycardia, unspecified; K29.70 Gastritis, unspecified, without bleeding; K66.0 Peritoneal adhesions (postprocedural) (postinfection); Z53.31 Laparoscopic surgical procedure converted to open procedure
CPT/HCPCS: 36430; 36569; 71010; 74177; 76937; 80048; 80053; 80061; 81001; 81003; 82436; 82565; 82570; 82962; 83735; 83880; 84100; 84300; 84443; 84478; 84484; 84560; 84703; 85025; 85610; 85651; 85730; 86078; 86140; 86644; 86850; 86900; 86901; 86920; 87081; 87086; 88307; 88309; 88331; 93005; 93306; J1940; J9209; J9267; C1751; C9113; G0378; J0131; J0330; J0360; J0461; J0690; J0696; J0780; J1100; J1170; J1200; J1885; J2175; J2250; J2274; J2405; J2710; J2765; J2997; J3010; J3480; J7030; J7040; J7050; J9208; P9016; P9047; Q9967

== ENCOUNTER 2016-11-15 10:12 | Inpatient (IN) | payer OTHER ==
[~2016-11-15] VITALS: Ht 162.6 cm; Wt 62.4 kg
[~2016-11-15 10:12] MED LIST changes: -CEFAZOLIN 2 GM/50 ML (PMX) 50 ML IVPB ONE; -D5-NS + KCL 20 MEQ 1,000 ML IV SCH; +HYDR-906 PO; -METHYLENE BLUE 1% 10 ML INJ ONE; +OMEP20CA16 PO; -SEVOFLURANE 15 MIN ONE; -THROMBIN 5000 UNIT VIAL ONE; -VASOPRESSIN 20 UNITS INJ ONE; -metroNIDAZOLE 500 MG/NS (PMX) 100 ML IVPB ONE
[2016-11-15 11:30] VITALS: BP 101/60; RESP 19
[2016-11-15] MEDS ORDERED: ACETAMINOPHEN 325 MG TAB PO PRN (12:00)
[2016-11-15] MEDS: DEXTROSE 5%-0.45% NACL 1,000 ML IV SCH (12:15)
[2016-11-15 12:43] VITALS: Ht 162.6 cm; Wt 62.4 kg
[2016-11-15 13:16] LABS: ADD SCAN DIFF NO
[2016-11-15 13:20] LABS: BASOPHILS % 0.8 % (0.0-2.0); HEMATOCRIT 29.4 % (37.0-47.0); HEMOGLOBIN 9.3 g/dl (12.0-16.0); LYMPHOCYTES # 0.8 10^3/ul (0.8-2.9); LYMPHOCYTES % 15.9 % (15.0-51.0); MEAN CORPUSCULAR HEMOGLOBIN 28.2 pg (29.0-33.0); MEAN CORPUSCULAR HGB CONC 31.6 g/dl (32.0-37.0); MEAN CORPUSCULAR VOLUME 89.1 fl (82.0-101.0); MEAN PLATELET VOLUME 8.8 fl (7.4-10.4); MONOCYTE # 0.4 10^3/ul (0.3-0.9); MONOCYTES % 7.3 % (0.0-11.0); NEUTROPHIL # 3.6 10^3/ul (1.6-7.5); PLATELET COUNT 352 10^3/UL (140-415); RED CELL DISTRIBUTION WIDTH 14.6 % (11.5-14.5); WHITE BLOOD COUNT 4.8 10^3/ul (4.8-10.8)
[2016-11-15 13:31] VITALS: BP 108/68; PULSE 64; RESP 16
[2016-11-15 13:40] LABS: ALBUMIN 2.7 g/dl (3.3-4.9)
[2016-11-15 13:41] LABS: POTASSIUM 3.4 mmol/L (3.5-5.1)
[2016-11-15 13:43] LABS: CALCIUM 8.3 mg/dl (8.4-10.2); CREATININE 0.57 mg/dl (0.44-1.00); TOTAL PROTEIN 5.4 g/dl (6.1-8.1)
--- NOTE | 2016-11-15 15:28 | CONS ---
Date/Time of Note Date/Time of Note DATE: 11/15/16 TIME: 15:28 Assessment/Plan Assessment/Plan Chief Complaint/Hosp Course The patient is a 56-year-old female with recent diagnosis of endometrial cancer on 09/17/2016 by endometrial biopsy. The patient was diagnosed with stage IV endometrial cancer. She underwent CYDNI/BSO and recto-sigmoid en-bloc with low anastomosis per Dr. Bueno on 10/11/16. She had extensive positive retroperitoneal lymph nodes removed but the confluence of disease makes her classified as millimeter residual disease. Path report showed metastatic carcinosarcoma. Per Dr. Kitchen of pathology, tumor is poorly differentiated though mostly sarcoma (90%) in the metastases. Patient received cycle 1 ifosfamide/taxol on 10/25/16. - Patient readmitted for cycle 2 Ifosfamide/taxol. Plan for 4 cycles of ifosfamide/taxol followd by 4 cycles of carbo/taxol per discussion with Dr. Bueno. Side effects including N/V, fatigue, myelosuppression, allergic reaction, confusion, hemorrhagic cystitis discussed with the patient. - Check daily UA while receiving ifosfamide - Avoid benzodiazpines or ambien while receiving ifosfamide. 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 - Patient will need decadron 20 mg PO 12 hours and 6 hours prior to paclitaxel - case management auth for neupogen 480 mcg for 10 days starting D4 Patient will need to be re-admitted in approximately 12/06/16 for cycle 3 ifosfamide/taxol Chemo regimen Ifosfamide 1600 mg/mg2 IV once per week D1-3 Paclitaxel 135 mg/m2 IV over 3 hours D1 [place] 2000 mg IV over 12 hours once per day (15 minutes before ifosfamide) D1-3 Decadron 20 mg PO 12 hours and 6 hours prior to paclitaxel Neupogen 480 mcg subcutaneous once per day starting D4 until ANC > 2000 Problems: Consultation Date/Type/Reason Admit Date/Time November 15, 2016 at 10:12 Date of Consultation: November 15, 2016 Type of Consultation: Oncology Hx of Present Illness The patient is a 56-year-old female with recent diagnosis of endometrial cancer on 09/17/2016 by endometrial biopsy. The patient was diagnosed with stage IV endometrial cancer. She underwent massive surgical procedure with CYNDI/BSO and recto-sigmoid en-bloc with low anastomosis per Dr. Bueno. She had extensive positive retroperitoneal lymph nodes removed but the confluence of disease makes her classified as millimeter residual disease. Path report showed metastatic carcinosarcoma. Per Dr. Kitchen of pathology, tumor is poorly differentiated though mostly sarcoma (90%) in the metastases. CT A/P with and without contrast 10/02/16 demonstrated metastatic spread with bilateral right greater than left adnexal lesions, with areas of infiltration and nodularity within the right paracolic gutter and transverse mesocolon. Patient received cycle 1 ifosfamide/taxol 10/25/16 requiring neupogen, tolerated fairly well except for tachycardia, unclear whether related to taxol or dehydration and cardiology was consulted. CT A/P done 10/29/16 shows no evidence of acute intraabdominal process; known metastatic disease was seen. Hospital course also complicated by hyponatremia which resolved. Patient now re-admitted for cycle 2 of ifosfamide/taxol. She has no complaints and feels well. Past Medical History Hypertension, Dyslipidemia, gastritis Past Surgical History The patient is status post cholecystectomy and also history of biopsy of left breast, details not available. Family History Significant Family History: no pertinent family hx, other ( Mother has hypertension, dyslipidemia and diabetes. Father due to heart disease, details not available, and father also had CVA.) Social History Alcohol Use: none Smoking Status: Never smoker Exam/Review of Systems Vital Signs Vitals Vital Signs Date Time Temp Pulse Resp B/P Pulse Ox O2 Delivery O2 Flow Rate FiO2 11/15/16 13:31 98.5 64 16 108/68 99 Room Air Exam Constitutional: alert, oriented Psych: no complaints Head: normocephalic Eyes: nl conjunctiva ENMT: nl external ears & nose Neck: non-tender, supple Respiratory: clear to auscultation, normal air movement Cardiovascular: nl pulses, regular rate and rhythm Gastrointestinal: soft, incision c/d/i Musculoskeletal: no edema, nl gait and stance Results Result Diagram: 11/15/16 1258 11/15/16 1258 Results 24 hrs Laboratory Tests Test 11/15/16 12:58 White Blood Count 4.8 # Red Blood Count 3.30 L Hemoglobin 9.3 L Hematocrit 29.4 L Mean Corpuscular Volume 89.1 Mean Corpuscular Hemoglobin 28.2 L Mean Corpuscular Hemoglobin Concent 31.6 L Red Cell Distribution Width 14.6 H Platelet Count 352 Mean Platelet Volume 8.8 Neutrophils % 75.0 Lymphocytes % 15.9 Monocytes % 7.3 Eosinophils % 0.0 Basophils % 0.8 Nucleated Red Blood Cells % 0.0 Neutrophils # 3.6 Lymphocytes # 0.8 Monocytes # 0.4 Eosinophils # 0.0 Basophils # 0.0 Nucleated Red Blood Cells # 0.0 Sodium Level 139 Potassium Level 3.4 L Chloride Level 104 Carbon Dioxide Level 28 Anion Gap 10 Blood Urea Nitrogen 15 Creatinine 0.57 Glucose Level 101 Calcium Level 8.3 L Total Bilirubin 0.0 L Direct Bilirubin 0.00 Indirect Bilirubin 0.0 Aspartate Amino Transf (AST/SGOT) 40 Alanine Aminotransferase (ALT/SGPT) 37 Alkaline Phosphatase 61 Total Protein 5.4 L Albumin 2.7 L Globulin 2.70 Albumin/Globulin Ratio 1.00 Medications Medications Current Medications Dextrose/Sodium Chloride (D5-1/2ns) 1,000 ml @ 75 mls/hr [id number] IV Last administered on 11/15/16 12:15; Admin Dose 75 MLS/HR; Start 11/15/16 at 12:00 Acetaminophen/ Hydrocodone Bitart ([place] (5/325)) 1 tab Q4H PRN PO PAIN LEVEL 4 -7; Start 11/15/16 at 12:00 Ondansetron HCl (Zofran Inj) 4 mg Q4H PRN IV NAUSEA AND/OR VOMITING; Start at 12:00 Acetaminophen (Tylenol Tab) 650 mg Q4H PRN PO PAIN AND OR ELEVATED TEMP; Start 11/15/16 at 12:00 LINDA SWANSON MD November 15, 2016 15:28 administered on 11/15/16 12:15; Admin Dose 75 MLS/HR; Start 11/15/16 at 12:00 Acetaminophen/ Hydrocodone Bitart ([place] (5/325)) 1 tab Q4H PRN PO PAIN LEVEL 4 -7; Start 11/15/16 at 12:00 Ondansetron HCl (Zofran Inj) 4 mg Q4H PRN IV NAUSEA AND/OR VOMITING; Start at 12:00 Acetaminophen (Tylenol Tab) 650 mg Q4H PRN PO PAIN AND OR ELEVATED TEMP; Start 11/15/16 at 12:00 TO,LINDA Arenas MD November 15, 2016 15:28
[2016-11-15 16:03] LABS: ADD UMIC YES; URINE BILIRUBIN (Dip) NEGATIVE (NEGATIVE); URINE BLOOD (Dip) 1+ (NEGATIVE); URINE COLOR LT. YELLOW (YELLOW); URINE GLUCOSE (Dip) NEGATIVE (NEGATIVE); URINE KETONES (Dip) NEGATIVE (NEGATIVE); URINE LEUKOCYTE ESTERASE (Dip) 2+ (NEGATIVE); URINE NITRITE (Dip) NEGATIVE (NEGATIVE); URINE TOTAL PROTEIN (Dip) NEGATIVE (NEGATIVE); URINE UROBILINOGEN (Dip) 0.2 E.U./dL (0.1-1.0)
[2016-11-15] MEDS ORDERED: POTASSIUM CHLORIDE (SR) 20 MEQ TAB PO STA (16:19)
[2016-11-15 16:20] LABS: BACTERIA,URINE MANY; SQUAMOUS EPITHELIAL CELL,UR MANY
[2016-11-15 19:58] VITALS: BP 92/56; RESP 20
--- NOTE | 2016-11-15 21:30 | RADRPT ---
Vent Rate: 61 bpm RR Interval: 0 msec VA Interval: 142 msec QRS Duration: 82 msec QT Interval: 386 msec QTC Interval: 388 msec P-R-T [place]: 56 - 83 - 72 degrees Normal sinus rhythm Normal ECG Electronically Signed By: Lawrence Oglesby [id number]
[2016-11-15 21:50] LABS: ADD UMIC YES; URINE BILIRUBIN (Dip) NEGATIVE (NEGATIVE); URINE BLOOD (Dip) 2+ (NEGATIVE); URINE COLOR LT. YELLOW (YELLOW); URINE GLUCOSE (Dip) NEGATIVE (NEGATIVE); URINE KETONES (Dip) NEGATIVE (NEGATIVE); URINE LEUKOCYTE ESTERASE (Dip) 1+ (NEGATIVE); URINE NITRITE (Dip) NEGATIVE (NEGATIVE); URINE TOTAL PROTEIN (Dip) NEGATIVE (NEGATIVE); URINE UROBILINOGEN (Dip) 0.2 E.U./dL (0.1-1.0)
[2016-11-15] MEDS ORDERED: DEXAMETHASONE 4 MG TAB PO SCH (22:00)
[2016-11-15 22:03] LABS: BACTERIA,URINE FEW; SQUAMOUS EPITHELIAL CELL,UR FEW; URINE RBCS >50 /HPF (0)
[2016-11-16] VITALS (22 sets, daily range): BP systolic 99–123; BP diastolic 56–74; PULSE 66–94; RESP 16–20
--- NOTE | 2016-11-16 00:24 | HP ---
DATE OF ADMISSION: 11/15/2016 CHIEF COMPLAINT AND HISTORY OF PRESENT ILLNESS: The patient is a 56-year-old female who was recentl y diagnosed with stage IV endometrial cancer. The patient underwent total abdominal hysterectomy an d bilateral salpingo-oophorectomy, rectosigmoid en block with low anastomosis by Dr. Bueno on . Pathology came back positive for metastatic carcinosarcoma. The patient received 1 cycle of chemotherapy back in September 2016. The patient is being admitted today for second cycle of chemoth erapy. The patient did have a BJ drain before she left, however, accidentally it came out. The pat ient, however, does not have any further drainage and incision is clean. REVIEW OF SYSTEMS: The patient denied any fever or chills. No history of chest pain, shortness of breath. No history of headache, dizziness, syncope. No history of fever or chills. No history of leg edema. No history of focal weakness. No history of any acute skin rash. Rest of review of sys tems unremarkable. PAST MEDICAL HISTORY: As stated above. PAST SURGICAL HISTORY: The patient is status post cholecystectomy and history of biopsy of left sae ast and the details not available, and in addition, the patient underwent surgery for metastatic car cinosarcoma, as described above. FAMILY HISTORY: Mother has hypertension, diabetes, and dyslipidemia. Father due to heart disease, details not available. SOCIAL HISTORY: No smoking, no alcohol. PHYSICAL EXAMINATION: GENERAL: The patient is conscious, awake, alert. VITAL SIGNS: Blood pressure 108/68, pulse 64, respirations 16, temperature 98.5, O2 saturation 99% on room air. HEENT: Atraumatic, normocephalic. Conjunctivae and lids normal. Oropharynx clear. NECK: Supple. No thyromegaly. CHEST: Clear to auscultation. CARDIOVASCULAR: S1, S2 normal. No murmur, gallop, or rub. ABDOMEN: Soft, nontender. Incision clean. Drain site also dry and clean. Bowel sounds present. EXTREMITIES: No leg edema. NEUROLOGIC: The patient is awake, alert, fairly oriented with no gross focal deficit. LABORATORY DATA: WBC 4.8, hemoglobin 9.3, platelets 362. Sodium 139, potassium 3.4, BUN 15, creati nine 0.85, glucose 101. IMPRESSION: 1. Metastatic carcinosarcoma status post total abdominal hysterectomy and bilateral salpingo-oophor ectomy, rectosigmoid en bloc with low anastomosis. Status post 1 cycle of chemotherapy. The patien t is being admitted for second cycle of chemotherapy. 2. Mild hypokalemia. The patient received 40 mEq potassium. Will do followup labs. The patient w ill be given IV fluids and symptomatic treatment in addition to chemo. DISPOSITION: The patient will be discharged home once cleared by oncologist, Dr. Roselia Hoang. Latonya n of care discussed with nursing staff. Dictated By: ARLENE CHOWDARY MD AB/NTS Conf#: [id number] DID#: [id number] CC: ROSELIA HOANG MD;*EndCC*
[2016-11-16] MEDS: DEXTROSE 5%-0.45% NACL 1,000 ML IV SCH ×2 (01:20→14:40)
[2016-11-16] MEDS ORDERED: DEXAMETHASONE 4 MG TAB PO SCH (04:00)
[2016-11-16 05:15] LABS: ADD SCAN DIFF NO
[2016-11-16 05:23] LABS: ABNORMAL IP MESSAGE 1; HEMOGLOBIN 10.1 g/dl (12.0-16.0); MEAN CORPUSCULAR HEMOGLOBIN 28.1 pg (29.0-33.0); MEAN CORPUSCULAR HGB CONC 31.6 g/dl (32.0-37.0); MEAN CORPUSCULAR VOLUME 88.9 fl (82.0-101.0); MEAN PLATELET VOLUME 8.8 fl (7.4-10.4); PLATELET COUNT 380 10^3/UL (140-415); RED CELL DISTRIBUTION WIDTH 14.6 % (11.5-14.5); WHITE BLOOD COUNT 5.6 10^3/ul (4.8-10.8)
[2016-11-16 05:51] LABS: ALBUMIN 2.9 g/dl (3.3-4.9); POTASSIUM 3.8 mmol/L (3.5-5.1)
[2016-11-16 05:53] LABS: CREATININE 0.54 mg/dl (0.44-1.00)
[2016-11-16 05:54] LABS: ALBUMIN/GLOBULIN RATIO 1.03; BILIRUBIN,INDIRECT 0.1 mg/dl (0-1.1); BILIRUBIN,TOTAL 0.1 mg/dl (0.2-1.3); CALCIUM 8.7 mg/dl (8.4-10.2); TOTAL PROTEIN 5.7 g/dl (6.1-8.1)
[2016-11-16 08:02] LABS: ADD UMIC YES; URINE BILIRUBIN (Dip) NEGATIVE (NEGATIVE); URINE BLOOD (Dip) 1+ (NEGATIVE); URINE COLOR LT. YELLOW (YELLOW); URINE GLUCOSE (Dip) NEGATIVE (NEGATIVE); URINE KETONES (Dip) NEGATIVE (NEGATIVE); URINE LEUKOCYTE ESTERASE (Dip) 1+ (NEGATIVE); URINE NITRITE (Dip) NEGATIVE (NEGATIVE); URINE TOTAL PROTEIN (Dip) NEGATIVE (NEGATIVE); URINE UROBILINOGEN (Dip) 0.2 E.U./dL (0.1-1.0)
[2016-11-16] MEDS ORDERED: ONDANSETRON IVPB SCH (09:00)
[2016-11-16] MEDS ORDERED: [UNRECOGNIZED DRUG - OTHER] IVPB SCH (09:00)
[2016-11-16] MEDS ORDERED: FAMOTIDINE IVPB SCH (09:00)
[2016-11-16] MEDS ORDERED: DEXAMETHASONE IVPB SCH (09:00)
[2016-11-16] MEDS ORDERED: DIPHENHYDRAMINE 50 MG INJ IV SCH (09:00)
[2016-11-16 09:39] LABS: BASOPHIL # 0.1 10^3/ul (0.0-0.1); LYMPHOCYTES # 0.4 10^3/ul (0.8-2.9); MONOCYTE # 0.1 10^3/ul (0.3-0.9)
--- NOTE | 2016-11-16 09:44 | CONS ---
Date/Time of Note Date/Time of Note DATE: 11/16/16 TIME: 09:42 Assessment/Plan Assessment/Plan Chief Complaint/Hosp Course The patient is a 56-year-old female with recent diagnosis of endometrial cancer on 09/17/2016 by endometrial biopsy. The patient was diagnosed with stage IV endometrial cancer. She underwent CYNDI/BSO and recto-sigmoid en-bloc with low anastomosis per Dr. Bueno on 10/11/16. She had extensive positive retroperitoneal lymph nodes removed but the confluence of disease makes her classified as millimeter residual disease. Path report showed metastatic carcinosarcoma. Per Dr. Kitchen of pathology, tumor is poorly differentiated though mostly sarcoma (90%) in the metastases. Patient received cycle 1 ifosfamide/taxol on 10/25/16. - Patient readmitted for cycle 2 Ifosfamide/taxol. Plan for 4 cycles of ifosfamide/taxol followd by 4 cycles of carbo/taxol per discussion with Dr. Bueno. Side effects including N/V, fatigue, myelosuppression, allergic reaction, confusion, hemorrhagic cystitis discussed with the patient. Patient received decadron pre-medication 12 hours and 6 hours prior, will start chemo today at 10-11 a.m. - Check daily UA while receiving ifosfamide. UA showed 1+ LE, neg nit, few bacteria, 2-5 RBC and 2-5 WBC, will obtain UCx. Patient asymptomatic. Monitor for hemorrhagic cystitis. - Avoid benzodiazpines or ambien while receiving ifosfamide. Monitor for STRICKLER ATTENDANT symptoms or encephalopathy with ifosfamide. - Patient will need decadron 20 mg PO 12 hours and 6 hours prior to paclitaxel - case management to obtain auth for neupogen 480 mcg for 10 days starting D4 Patient will need to be re-admitted approximately 12/06/16 for cycle 3 ifosfamide /taxol Chemo regimen Ifosfamide 1600 mg/mg2 IV once per week D1-3 Paclitaxel 135 mg/m2 IV over 3 hours D1 [place] 2000 mg IV over 12 hours once per day (15 minutes before ifosfamide) D1-3 Decadron 20 mg PO 12 hours and 6 hours prior to paclitaxel Neupogen 480 mcg subcutaneous once per day starting D4 until ANC > 2000 Problems: Consultation Date/Type/Reason Admit Date/Time November 15, 2016 at 10:12 Initial Consult Date 11/15/16 Type of Consultation: Oncology 24 HR Interval Summary Free Text/Dictation Patient doing well, no dysuria, frequency or urgency, no hematuria. Exam/Review of Systems Vital Signs Vitals Vital Signs Date Time Temp Pulse Resp B/P Pulse Ox O2 Delivery O2 Flow Rate FiO2 11/16/16 08:00 98.7 84 20 109/67 97 11/15/16 13:31 Room Air Intake and Output 11/15/16 11/15/16 11/16/16 15:00 23:00 07:00 Intake Total 450 ml 1300 ml Output Total 900 ml Balance 450 ml 400 ml Exam Constitutional: alert, oriented Psych: no complaints Head: normocephalic Eyes: nl conjunctiva ENMT: nl external ears & nose Neck: non-tender, supple Respiratory: clear to auscultation, normal air movement Cardiovascular: nl pulses, regular rate and rhythm Gastrointestinal: soft, incision c/d/i Musculoskeletal: no edema, nl gait and stance Results Result Diagram: 11/16/16 0420 11/16/16 0420 Results 24 hrs Laboratory Tests Test 11/15/16 12:58 11/15/16 15:00 11/15/16 20:00 11/16/16 04:00 White Blood Count 4.8 # Red Blood Count 3.30 L Hemoglobin 9.3 L Hematocrit 29.4 L Mean Corpuscular Volume 89.1 Mean Corpuscular Hemoglobin 28.2 L Mean Corpuscular Hemoglobin Concent 31.6 L Red Cell Distribution Width 14.6 H Platelet Count 352 Mean Platelet Volume 8.8 Neutrophils % 75.0 Lymphocytes % 15.9 Monocytes % 7.3 Eosinophils % 0.0 Basophils % 0.8 Nucleated Red Blood Cells % 0.0 Neutrophils # 3.6 Lymphocytes # 0.8 Monocytes # 0.4 Eosinophils # 0.0 Basophils # 0.0 Nucleated Red Blood Cells # 0.0 Sodium Level 139 Potassium Level 3.4 L Chloride Level 104 Carbon Dioxide Level 28 Anion Gap 10 Blood Urea Nitrogen 15 Creatinine 0.57 Glucose Level 101 Calcium Level 8.3 L Total Bilirubin 0.0 L Direct Bilirubin 0.00 Indirect Bilirubin 0.0 Aspartate Amino Transf (AST/SGOT) 40 Alanine Aminotransferase (ALT/SGPT) 37 Alkaline Phosphatase 61 Total Protein 5.4 L Albumin 2.7 L Globulin 2.70 Albumin/Globulin Ratio 1.00 Urine Color LT. YELLOW LT. YELLOW LT. YELLOW Urine Clarity CLOUDY CLEAR CLEAR Urine pH 6.0 6.0 6.0 Urine Specific [place] 1.010 1.010 1.010 Urine Ketones NEGATIVE NEGATIVE NEGATIVE Urine Nitrite NEGATIVE NEGATIVE NEGATIVE Urine Bilirubin NEGATIVE NEGATIVE NEGATIVE Urine Urobilinogen 0.2 E.U./dL 0.2 E.U./dL 0.2 E.U./dL Urine Leukocyte Esterase 2+ H 1+ H 1+ H Urine Microscopic RBC 2-5 >50 2-5 Urine Microscopic WBC >200 5-10 2-5 Urine Squamous Epithelial Cells MANY FEW Urine Bacteria MANY FEW Urine Hemoglobin 1+ H 2+ H 1+ H Urine Glucose NEGATIVE NEGATIVE NEGATIVE Urine Total Protein NEGATIVE NEGATIVE NEGATIVE Urine Epithelial Cells FEW Test 11/16/16 04:20 White Blood Count 5.6 Red Blood Count 3.60 L Hemoglobin 10.1 L Hematocrit 32.0 L Mean Corpuscular Volume 88.9 Mean Corpuscular Hemoglobin 28.1 L Mean Corpuscular Hemoglobin Concent 31.6 L Red Cell Distribution Width 14.6 H Platelet Count 380 Mean Platelet Volume 8.8 Neutrophils % 89.0 H Lymphocytes % 7.0 L Monocytes % 2.0 Basophils % 2.0 Neutrophils # 5.0 Lymphocytes # 0.4 L Monocytes # 0.1 L Basophils # 0.1 Sodium Level 140 Potassium Level 3.8 Chloride Level 106 Carbon Dioxide Level 26 Anion Gap 12 Blood Urea Nitrogen 12 Creatinine 0.54 Glucose Level 163 Calcium Level 8.7 Total Bilirubin 0.1 L Direct Bilirubin 0.00 Indirect Bilirubin 0.1 Aspartate Amino Transf (AST/SGOT) 33 Alanine Aminotransferase (ALT/SGPT) 34 Alkaline Phosphatase 67 Total Protein 5.7 L Albumin 2.9 L Globulin 2.80 Albumin/Globulin Ratio 1.03 Medications Medications Current Medications Dextrose/Sodium Chloride (D5-1/2ns) 1,000 ml @ 75 mls/hr [id number] IV Last administered on 11/16/16t 01:20; Admin Dose 75 MLS/HR; Start 11/15/16 at 12:00 Acetaminophen/ Hydrocodone Bitart ([place] (5/325)) 1 tab Q4H PRN PO PAIN LEVEL 4 -7; Start 11/15/16 at 12:00 Ondansetron HCl (Zofran Inj) 4 mg Q4H PRN IV NAUSEA AND/OR VOMITING; Start at 12:00 Acetaminophen (Tylenol Tab) 650 mg Q4H PRN PO PAIN AND OR ELEVATED TEMP; Start 11/15/16 at 12:00 Diphenhydramine HCl 25 mg 25 mg 09 IV ; Start 11/16/16 at 09:00; Stop 11/16/16 at 10:00 Ondansetron HCl 16 mg/ Dexamethasone 10 mg/Famotidine 20 mg/Sodium Chloride 61 ml @ 120 mls/hr 09 IVPB ; Start 11/16/16 at 09:00; Stop 11/16/16 at 10:00 Paclitaxel 225 mg/ Sodium Chloride 537.5 ml @ 167 mls/hr 10 IV ; Start at 10:00; Stop 11/16/16 at 13:00 [place] 2000 mg/ Sodium Chloride 270 ml @ 22.5 mls/hr 14 IV ; Start 11/16/16 at 14:00; Stop 11/19/16 at 01:59 Ifosfamide 2.672 gm/Sodium Chloride 250 ml @ 250 mls/hr 1415 IV ; Start at 14:15; Stop 11/18/16 at 15:14 Ondansetron HCl/ Dexamethasone/ Famotidine/Sodium Chloride (Zofran Inj/ Decadron /Pepcid Iv/NS) 61 ml @ 120 mls/hr 1330 IVPB ; Start 11/17/16 at 13:30; Stop at 14:01 Filgrastim (Neupogen) 480 mcg DAILY@17 SC ; Start 11/19/16 at 17:00 Miscellaneous Information 1 ea NOTE XX ; Start 11/16/16 at 14:15; Stop 11/18/16 at 14:16 Miscellaneous Information 1 ea NOTE XX ; Start 11/16/16 at 14:15; Stop 11/18/16 at 14:16 Hydrocortisone (Solu-Cortef) 100 mg ONCE PRN IV ADVERSE RXN TO CHEMO; Start at 14:00; Stop 11/19/16 at 13:59 Diphenhydramine HCl (Benadryl) 50 mg ONCE PRN IV ALLERGIC REACTION; Start 11/16 at 14:00; Stop 11/19/16 at 13:59 TO,LINDA Arenas MD November 16, 2016 09:44
[2016-11-16] MEDS ORDERED: SOD CHLORIDE 0.9% IV SCH (10:00)
[2016-11-16] MEDS ORDERED: PACLITAXEL IV SCH (10:00)
[2016-11-16] MEDS ORDERED: HYDROCORTISONE 100 MG INJ IV PRN ×2 (11:00→14:00)
[2016-11-16] MEDS ORDERED: DIPHENHYDRAMINE 50 MG INJ IV PRN ×2 (11:00→14:00)
[2016-11-16] MEDS ORDERED: [UNRECOGNIZED DRUG - REMARK] XX SCH (14:15)
[2016-11-16] MEDS ORDERED: [UNRECOGNIZED DRUG - REMARK] XX SCH (14:15)
--- NOTE | 2016-11-16 16:23 | PN ---
Date/Time of Note Date/Time of Note DATE: 11/16/16 TIME: 16:18 Assessment/Plan VTE Prophylaxis VTE Prophylaxis Intervention: SCD's Lines/Catheters Urinary Cath still in place: No Assessment/Plan Chief Complaint/Hosp Course Assessment and plan: - Metastatic carcinosarcoma status post total abdominal hysterectomy and bilateral salpingo-oophorectomy, rectosigmoid en bloc with low anastomosis by Dr. Bueno on 10/11. Status post 1 cycle of chemotherapy. The patient is being admitted for second cycle of chemotherapy. Dr. Hoang is following in oncology consultation. - Gastritis. Continue Protonix. Further recommendations based on clinical course. Plan of care discussed with Dr. Richardson. Problems: Subjective 24 Hr Interval Summary Free Text/Dictation Patient is currently undergoing chemotherapy, pain is well controlled denies nausea vomiting Exam/Review of Systems Vital Signs Vitals Vital Signs Date Time Temp Pulse Resp B/P Pulse Ox O2 Delivery O2 Flow Rate FiO2 11/16/16 16:15 98.0 81 16 110/57 98 Room Air Intake and Output 11/15/16 11/15/16 11/16/16 15:00 23:00 07:00 Intake Total 450 ml 1300 ml Output Total 900 ml Balance 450 ml 400 ml Exam Constitutional: alert, oriented Head: atraumatic, normocephalic Eyes: nl conjunctiva ENMT: nl external ears & nose Neck: non-tender, supple Respiratory: clear to auscultation Cardiovascular: nl pulses, regular rate and rhythm Gastrointestinal: non-tender, other (Status post surgery with intact surgical incision), soft Musculoskeletal: nl extremities to inspection Extremities: normal pulses Neurological: YARDER BOSS II-XII intact Results Result Diagram: 11/16/16 0420 11/16/16 0420 Results 24 hrs Laboratory Tests Test 11/15/16 20:00 11/16/16 04:00 11/16/16 04:20 Urine Color LT. YELLOW LT. YELLOW Urine Clarity CLEAR CLEAR Urine pH 6.0 6.0 Urine Specific [place] 1.010 1.010 Urine Ketones NEGATIVE NEGATIVE Urine Nitrite NEGATIVE NEGATIVE Urine Bilirubin NEGATIVE NEGATIVE Urine Urobilinogen 0.2 E.U./dL 0.2 E.U./dL Urine Leukocyte Esterase 1+ H 1+ H Urine Microscopic RBC >50 2-5 Urine Microscopic WBC 5-10 2-5 Urine Squamous Epithelial Cells FEW Urine Bacteria FEW Urine Hemoglobin 2+ H 1+ H Urine Glucose NEGATIVE NEGATIVE Urine Total Protein NEGATIVE NEGATIVE Urine Epithelial Cells FEW White Blood Count 5.6 Red Blood Count 3.60 L Hemoglobin 10.1 L Hematocrit 32.0 L Mean Corpuscular Volume 88.9 Mean Corpuscular Hemoglobin 28.1 L Mean Corpuscular Hemoglobin Concent 31.6 L Red Cell Distribution Width 14.6 H Platelet Count 380 Mean Platelet Volume 8.8 Neutrophils % 89.0 H Lymphocytes % 7.0 L Monocytes % 2.0 Basophils % 2.0 Neutrophils # 5.0 Lymphocytes # 0.4 L Monocytes # 0.1 L Basophils # 0.1 Sodium Level 140 Potassium Level 3.8 Chloride Level 106 Carbon Dioxide Level 26 Anion Gap 12 Blood Urea Nitrogen 12 Creatinine 0.54 Glucose Level 163 Calcium Level 8.7 Total Bilirubin 0.1 L Direct Bilirubin 0.00 Indirect Bilirubin 0.1 Aspartate Amino Transf (AST/SGOT) 33 Alanine Aminotransferase (ALT/SGPT) 34 Alkaline Phosphatase 67 Total Protein 5.7 L Albumin 2.9 L Globulin 2.80 Albumin/Globulin Ratio 1.03 Medications Medications Current Medications Acetaminophen/ Hydrocodone Bitart ([place] (5/325)) 1 tab Q4H PRN PO PAIN LEVEL 4 -7; Start 11/15/16 at 12:00 Ondansetron HCl (Zofran Inj) 4 mg Q4H PRN IV NAUSEA AND/OR VOMITING; Start at 12:00 Acetaminophen 650 mg 650 mg Q4H PRN PO PAIN AND OR ELEVATED TEMP; Start at 12:00 [place] 2000 mg/ Sodium Chloride 270 ml @ 22.5 mls/hr 14 IV ; Start 11/16/16 at 14:00; Stop 11/19/16 at 01:59 Ifosfamide 2.672 gm/Sodium Chloride 250 ml @ 250 mls/hr 1415 IV ; Start at 14:15; Stop 11/18/16 at 15:14 Ondansetron HCl/ Dexamethasone/ Famotidine/Sodium Chloride (Zofran Inj/ Decadron /Pepcid Iv/NS) 61 ml @ 120 mls/hr 1330 IVPB ; Start 11/17/16 at 13:30; Stop at 14:01 Filgrastim (Neupogen) 480 mcg DAILY@17 SC ; Start 11/19/16 at 17:00 Miscellaneous Information 1 ea NOTE XX ; Start 11/16/16 at 14:15; Stop 11/18/16 at 14:16 Miscellaneous Information 1 ea NOTE XX ; Start 11/16/16 at 14:15; Stop 11/18/16 at 14:16 Diphenhydramine HCl (Benadryl) 50 mg ONCE PRN IV ALLERGIC REACTION; Start at 11:00 Hydrocortisone (Solu-Cortef) 100 mg ONCE PRN IV ADVERSE RXN TO CHEMO; Start at 11:00 Docusate Sodium 100 mg 100 mg BID PRN PO CONSTIPATION; Start 11/16/16 at 11:30 Sodium Chloride 150 ml @ 150 mls/hr 14 IV ; Start 11/16/16 at 14:00; Stop 11/18 at 14:59 Sodium Chloride (NS) 1,000 ml @ 50 mls/hr Q20H IV ; Start 11/16/16 at 16:00 ELVIN TEIXEIRA November 16, 2016 16:23
[2016-11-16] MEDS: SOD CHLORIDE 0.9% 1,000 ML IV SCH (17:35)
[2016-11-16] MEDS: ONDANSETRON 4 MG INJ IV PRN (21:16)
[2016-11-16] MEDS: SOD CHLORIDE 0.9% 150 ML IV SCH (21:19)
[2016-11-16] MEDS: MESNA IV SCH (21:19)
[2016-11-16] MEDS: SOD CHLORIDE 0.9% IV SCH ×2 (21:19→21:45)
[2016-11-16] MEDS: IFOSFAMIDE IV SCH (21:45)
[2016-11-17] VITALS (10 sets, daily range): BP systolic 97–117; BP diastolic 55–68; PULSE 64–76; RESP 15–18
[2016-11-17 05:09] LABS: ADD SCAN DIFF NO
[2016-11-17 05:12] LABS: ABNORMAL IP MESSAGE 1; BASOPHILS % 0.1 % (0.0-2.0); HEMATOCRIT 27.6 % (37.0-47.0); HEMOGLOBIN 8.8 g/dl (12.0-16.0); LYMPHOCYTES # 0.5 10^3/ul (0.8-2.9); LYMPHOCYTES % 5.2 % (15.0-51.0); MEAN CORPUSCULAR HGB CONC 31.9 g/dl (32.0-37.0); MEAN CORPUSCULAR VOLUME 87.9 fl (82.0-101.0); MEAN PLATELET VOLUME 9.2 fl (7.4-10.4); MONOCYTE # 0.2 10^3/ul (0.3-0.9); MONOCYTES % 2.2 % (0.0-11.0); NEUTROPHIL # 9.4 10^3/ul (1.6-7.5); NEUTROPHILS % 91.7 % (39.0-77.0); PLATELET COUNT 334 10^3/UL (140-415); RED BLOOD COUNT 3.14 10^6/ul (4.20-5.40); RED CELL DISTRIBUTION WIDTH 14.6 % (11.5-14.5); WHITE BLOOD COUNT 10.2 10^3/ul (4.8-10.8)
[2016-11-17 05:49] LABS: ALBUMIN 2.5 g/dl (3.3-4.9); ALBUMIN/GLOBULIN RATIO 1.04; CALCIUM 7.6 mg/dl (8.4-10.2); CREATININE 0.57 mg/dl (0.44-1.00); POTASSIUM 3.6 mmol/L (3.5-5.1); TOTAL PROTEIN 4.9 g/dl (6.1-8.1)
[2016-11-17 06:35] LABS: ADD UMIC YES; URINE BILIRUBIN (Dip) NEGATIVE (NEGATIVE); URINE BLOOD (Dip) 1+ (NEGATIVE); URINE COLOR LT. YELLOW (YELLOW); URINE GLUCOSE (Dip) NEGATIVE (NEGATIVE); URINE KETONES (Dip) 40 (NEGATIVE); URINE LEUKOCYTE ESTERASE (Dip) 1+ (NEGATIVE); URINE NITRITE (Dip) NEGATIVE (NEGATIVE); URINE TOTAL PROTEIN (Dip) NEGATIVE (NEGATIVE); URINE UROBILINOGEN (Dip) 0.2 E.U./dL (0.1-1.0)
[2016-11-17 06:46] LABS: BACTERIA,URINE FEW; SQUAMOUS EPITHELIAL CELL,UR FEW; TRANSITIONAL EPI CELLS,URINE OCCASIONAL
[2016-11-17] MEDS: SOD CHLORIDE 0.9% 1,000 ML IV SCH (12:00)
[2016-11-17] MEDS: AMOXICILLIN/CLAV 875 MG TAB PO SCH ×2 (14:29→22:58)
--- NOTE | 2016-11-17 14:40 | PN ---
Date/Time of Note Date/Time of Note DATE: 11/17/16 TIME: 14:39 Assessment/Plan VTE Prophylaxis VTE Prophylaxis Intervention: other Lines/Catheters [facility] P[facility] Line Urinary Cath still in place: No Assessment/Plan Assessment/Plan - Ecoli- urine - contact isolation - Augmentin 875 mg po , will check sensitivity tomorrow - Metastatic carcinosarcoma status post total abdominal hysterectomy and bilateral salpingo-oophorectomy, rectosigmoid en bloc with low anastomosis by Dr. Bueno on 10/11. Status post 1 cycle of chemotherapy. The patient is being admitted for second cycle of chemotherapy. Dr. Hoang is following in oncology consultation. - Gastritis. Continue Protonix. Further recommendations based on clinical course. Plan of care discussed with Dr. Richardson. Subjective 24 Hr Interval Summary Constitutional: improved Respiratory: no complaints Cardiovascular: no complaints Gastrointestinal: no complaints Genitourinary: no complaints Exam/Review of Systems Vital Signs Vitals Vital Signs Date Time Temp Pulse Resp B/P Pulse Ox O2 Delivery O2 Flow Rate FiO2 11/17/16 07:45 98.1 85 15 113/63 100 11/17/16 04:30 Room Air Intake and Output 11/16/16 11/16/16 11/17/16 15:00 23:00 07:00 Intake Total 570 ml 1837.5 ml 1680 ml Output Total 1800 ml 1150 ml Balance 570 ml 37.5 ml 530 ml Exam Constitutional: alert, oriented, well developed Psych: no complaints ENMT: nl external ears & nose Respiratory: clear to auscultation Cardiovascular: nl pulses Gastrointestinal: non-tender, soft Musculoskeletal: nl extremities to inspection Extremities: normal pulses Neurological: nl mental status, nl speech Skin: other Lymph: nontender Results Result Diagram: 11/17/16 0436 11/17/16 0436 Results 24 hrs Laboratory Tests Test 11/17/16 03:00 11/17/16 04:36 Urine Color LT. YELLOW Urine Clarity CLEAR Urine pH 6.0 Urine Specific [place] 1.010 Urine Ketones 40 Urine Nitrite NEGATIVE Urine Bilirubin NEGATIVE Urine Urobilinogen 0.2 E.U./dL Urine Leukocyte Esterase 1+ H Urine Microscopic RBC 5-10 Urine Microscopic WBC 10-25 Urine Squamous Epithelial Cells FEW Urine Transitional Epithelial Cells OCCASIONAL Urine Bacteria FEW Urine Hemoglobin 1+ H Urine Glucose NEGATIVE Urine Total Protein NEGATIVE White Blood Count 10.2 # Red Blood Count 3.14 L Hemoglobin 8.8 L Hematocrit 27.6 L Mean Corpuscular Volume 87.9 Mean Corpuscular Hemoglobin 28.0 L Mean Corpuscular Hemoglobin Concent 31.9 L Red Cell Distribution Width 14.6 H Platelet Count 334 Mean Platelet Volume 9.2 Neutrophils % 91.7 H Lymphocytes % 5.2 L Monocytes % 2.2 Eosinophils % 0.0 Basophils % 0.1 Nucleated Red Blood Cells % 0.0 Neutrophils # 9.4 H Lymphocytes # 0.5 L Monocytes # 0.2 L Eosinophils # 0.0 Basophils # 0.0 Nucleated Red Blood Cells # 0.0 Sodium Level 140 Potassium Level 3.6 Chloride Level 114 H Carbon Dioxide Level 25 Anion Gap 5 L Blood Urea Nitrogen 12 Creatinine 0.57 Glucose Level 100 # Calcium Level 7.6 L Total Bilirubin 0.0 L Direct Bilirubin 0.00 Indirect Bilirubin 0.0 Aspartate Amino Transf (AST/SGOT) 41 Alanine Aminotransferase (ALT/SGPT) 31 Alkaline Phosphatase 50 Total Protein 4.9 L Albumin 2.5 L Globulin 2.40 Albumin/Globulin Ratio 1.04 Medications Medications Current Medications Acetaminophen/ Hydrocodone Bitart ([place] (5/325)) 1 tab Q4H PRN PO PAIN LEVEL 4 -7; Start 11/15/16 at 12:00 Ondansetron HCl (Zofran Inj) 4 mg Q4H PRN IV NAUSEA AND/OR VOMITING Last administered on 11/16/16 21:16; Admin Dose 4 MG; Start 11/15/16 at 12:00 Acetaminophen 650 mg 650 mg Q4H PRN PO PAIN AND OR ELEVATED TEMP; Start at 12:00 [place] 2000 mg/ Sodium Chloride 270 ml @ 22.5 mls/hr 14 IV Last administered on 11/16/16 21:19; Admin Dose 22.5 MLS/HR; Start 11/16/16 at 14:00; Stop at 01:59 Ifosfamide 2.672 gm/Sodium Chloride 250 ml @ 250 mls/hr 1415 IV Last administered on 11/16/16 21:45; Admin Dose 250 MLS/HR; Start 11/16/16 at 14:15 ; Stop 11/18/16 at 15:14 Ondansetron HCl/ Dexamethasone/ Famotidine/Sodium Chloride (Zofran Inj/ Decadron /Pepcid Iv/NS) 61 ml @ 120 mls/hr 1330 IVPB ; Start 11/17/16 at 13:30; Stop at 14:01 Filgrastim (Neupogen) 480 mcg DAILY@17 SC ; Start 11/19/16 at 17:00 Miscellaneous Information 1 ea NOTE XX ; Start 11/16/16 at 14:15; Stop 11/18/16 at 14:16 Miscellaneous Information 1 ea NOTE XX ; Start 11/16/16 at 14:15; Stop 11/18/16 at 14:16 Diphenhydramine HCl (Benadryl) 50 mg ONCE PRN IV ALLERGIC REACTION; Start at 11:00 Hydrocortisone (Solu-Cortef) 100 mg ONCE PRN IV ADVERSE RXN TO CHEMO; Start at 11:00 Docusate Sodium 100 mg 100 mg BID PRN PO CONSTIPATION; Start 11/16/16 at 11:30 Sodium Chloride 150 ml @ 150 mls/hr 14 IV Last administered on 11/16/16 21:19 ; Admin Dose 150 MLS/HR; Start 11/16/16 at 14:00; Stop 11/18/16 at 14:59 Sodium Chloride (NS) 1,000 ml @ 50 mls/hr Q20H IV Last administered on 17:35; Admin Dose 50 MLS/HR; Start 11/16/16 at 16:00 Amoxicillin/ Clavulanate Potassium (Augmentin) 875 mg BID PO Last administered on 11/17/16 14:29; Admin Dose 875 MG; Start 11/17/16 at 14:00 LATRICIA GABRIEL November 17, 2016 14:40
--- NOTE | 2016-11-17 18:42 | CONS ---
Date/Time of Note Date/Time of Note DATE: 11/17/16 TIME: 18:41 Assessment/Plan Assessment/Plan Chief Complaint/Hosp Course The patient is a 56-year-old female with recent diagnosis of endometrial cancer on 09/17/2016 by endometrial biopsy. The patient was diagnosed with stage IV endometrial cancer. She underwent CYNDI/BSO and recto-sigmoid en-bloc with low anastomosis per Dr. Bueno on 10/11/16. She had extensive positive retroperitoneal lymph nodes removed but the confluence of disease makes her classified as millimeter residual disease. Path report showed metastatic carcinosarcoma. Per Dr. Kitchen of pathology, tumor is poorly differentiated though mostly sarcoma (90%) in the metastases. Patient received cycle 1 ifosfamide/taxol on 10/25/16. - Patient readmitted for cycle 2 Ifosfamide/taxol. Plan for 4 cycles of ifosfamide/taxol followd by 4 cycles of carbo/taxol per discussion with Dr. Bueno. Side effects including N/V, fatigue, myelosuppression, allergic reaction, confusion, hemorrhagic cystitis discussed with the patient. Patient started on chemotherapy 11/16/16, Day 2 today. - Check daily UA while receiving ifosfamide. Urine culture showed > 100,000 enterococcus, would recommend empiric treatment given patient on chemotherapy. Patient started on augmentin per primary team, pending sensitivity. Patient asymptomatic. Monitor for hemorrhagic cystitis. - Avoid benzodiazpines or ambien while receiving ifosfamide. Monitor for RETOUCHER symptoms or encephalopathy with ifosfamide. - Patient will need decadron 20 mg PO 12 hours and 6 hours prior to paclitaxel - case management to obtain auth for neupogen 480 mcg for 10 days starting D4 Patient will need to be re-admitted approximately 12/06/16 for cycle 3 ifosfamide /taxol Chemo regimen Ifosfamide 1600 mg/mg2 IV once per week D1-3 Paclitaxel 135 mg/m2 IV over 3 hours D1 [place] 2000 mg IV over 12 hours once per day (15 minutes before ifosfamide) D1-3 Decadron 20 mg PO 12 hours and 6 hours prior to paclitaxel Neupogen 480 mcg subcutaneous once per day starting D4 until ANC > 2000 Problems: Consultation Date/Type/Reason Admit Date/Time November 15, 2016 at 10:12 Initial Consult Date 11/15/16 Type of Consultation: Oncology 24 HR Interval Summary Free Text/Dictation Patient had some nausea, no vomiting. No hematuria, no confusion. Exam/Review of Systems Vital Signs Vitals Vital Signs Date Time Temp Pulse Resp B/P Pulse Ox O2 Delivery O2 Flow Rate FiO2 11/17/16 07:45 98.1 85 15 113/63 100 11/17/16 04:30 Room Air Intake and Output 11/16/16 11/16/16 11/17/16 15:00 23:00 07:00 Intake Total 570 ml 1837.5 ml 1680 ml Output Total 1800 ml 1150 ml Balance 570 ml 37.5 ml 530 ml Exam Constitutional: alert, oriented Psych: no complaints Head: normocephalic Eyes: nl conjunctiva ENMT: nl external ears & nose Neck: non-tender, supple Respiratory: clear to auscultation, normal air movement Cardiovascular: nl pulses, regular rate and rhythm Gastrointestinal: soft, incision c/d/i Musculoskeletal: no edema, nl gait and stance Results Result Diagram: 11/17/16 0436 11/17/16 0436 Results 24 hrs Laboratory Tests Test 11/17/16 03:00 11/17/16 04:36 Urine Color LT. YELLOW Urine Clarity CLEAR Urine pH 6.0 Urine Specific [place] 1.010 Urine Ketones 40 Urine Nitrite NEGATIVE Urine Bilirubin NEGATIVE Urine Urobilinogen 0.2 E.U./dL Urine Leukocyte Esterase 1+ H Urine Microscopic RBC 5-10 Urine Microscopic WBC 10-25 Urine Squamous Epithelial Cells FEW Urine Transitional Epithelial Cells OCCASIONAL Urine Bacteria FEW Urine Hemoglobin 1+ H Urine Glucose NEGATIVE Urine Total Protein NEGATIVE White Blood Count 10.2 # Red Blood Count 3.14 L Hemoglobin 8.8 L Hematocrit 27.6 L Mean Corpuscular Volume 87.9 Mean Corpuscular Hemoglobin 28.0 L Mean Corpuscular Hemoglobin Concent 31.9 L Red Cell Distribution Width 14.6 H Platelet Count 334 Mean Platelet Volume 9.2 Neutrophils % 91.7 H Lymphocytes % 5.2 L Monocytes % 2.2 Eosinophils % 0.0 Basophils % 0.1 Nucleated Red Blood Cells % 0.0 Neutrophils # 9.4 H Lymphocytes # 0.5 L Monocytes # 0.2 L Eosinophils # 0.0 Basophils # 0.0 Nucleated Red Blood Cells # 0.0 Sodium Level 140 Potassium Level 3.6 Chloride Level 114 H Carbon Dioxide Level 25 Anion Gap 5 L Blood Urea Nitrogen 12 Creatinine 0.57 Glucose Level 100 # Calcium Level 7.6 L Total Bilirubin 0.0 L Direct Bilirubin 0.00 Indirect Bilirubin 0.0 Aspartate Amino Transf (AST/SGOT) 41 Alanine Aminotransferase (ALT/SGPT) 31 Alkaline Phosphatase 50 Total Protein 4.9 L Albumin 2.5 L Globulin 2.40 Albumin/Globulin Ratio 1.04 Medications Medications Current Medications Acetaminophen/ Hydrocodone Bitart ([place] (5/325)) 1 tab Q4H PRN PO PAIN LEVEL 4 -7; Start 11/15/16 at 12:00 Ondansetron HCl (Zofran Inj) 4 mg Q4H PRN IV NAUSEA AND/OR VOMITING Last administered on 11/16/16 21:16; Admin Dose 4 MG; Start 11/15/16 at 12:00 Acetaminophen 650 mg 650 mg Q4H PRN PO PAIN AND OR ELEVATED TEMP; Start at 12:00 [place] 2000 mg/ Sodium Chloride 270 ml @ 22.5 mls/hr 14 IV Last administered on 11/16/16 21:19; Admin Dose 22.5 MLS/HR; Start 11/16/16 at 14:00; Stop at 01:59 Ifosfamide 2.672 gm/Sodium Chloride 250 ml @ 250 mls/hr 1415 IV Last administered on 11/16/16 21:45; Admin Dose 250 MLS/HR; Start 11/16/16 at 14:15 ; Stop 11/18/16 at 15:14 Ondansetron HCl/ Dexamethasone/ Famotidine/Sodium Chloride (Zofran Inj/ Decadron /Pepcid Iv/NS) 61 ml @ 120 mls/hr 1330 IVPB ; Start 11/17/16 at 13:30; Stop at 14:01 Filgrastim (Neupogen) 480 mcg DAILY@17 SC ; Start 11/19/16 at 17:00 Miscellaneous Information 1 ea NOTE XX ; Start 11/16/16 at 14:15; Stop 11/18/16 at 14:16 Miscellaneous Information 1 ea NOTE XX ; Start 11/16/16 at 14:15; Stop 11/18/16 at 14:16 Diphenhydramine HCl (Benadryl) 50 mg ONCE PRN IV ALLERGIC REACTION; Start at 11:00 Hydrocortisone (Solu-Cortef) 100 mg ONCE PRN IV ADVERSE RXN TO CHEMO; Start at 11:00 Docusate Sodium 100 mg 100 mg BID PRN PO CONSTIPATION; Start 11/16/16 at 11:30 Sodium Chloride 150 ml @ 150 mls/hr 14 IV Last administered on 11/16/16 21:19 ; Admin Dose 150 MLS/HR; Start 11/16/16 at 14:00; Stop 11/18/16 at 14:59 Sodium Chloride (NS) 1,000 ml @ 50 mls/hr Q20H IV Last administered on 17:35; Admin Dose 50 MLS/HR; Start 11/16/16 at 16:00 Amoxicillin/ Clavulanate Potassium (Augmentin) 875 mg BID PO Last administered on 11/17/16 14:29; Admin Dose 875 MG; Start 11/17/16 at 14:00 TOLINDA MD November 17, 2016 18:42
[2016-11-17] MEDS: FAMOTIDINE IVPB SCH (21:05)
[2016-11-17] MEDS: ONDANSETRON IVPB SCH (21:05)
[2016-11-17] MEDS: DEXAMETHASONE IVPB SCH (21:05)
[2016-11-17] MEDS: [UNRECOGNIZED DRUG - OTHER] IVPB SCH (21:05)
[2016-11-17] MEDS: SOD CHLORIDE 0.9% 150 ML IV SCH (21:47)
[2016-11-17] MEDS: MESNA IV SCH (21:47)
[2016-11-17] MEDS: SOD CHLORIDE 0.9% IV SCH ×2 (21:47→22:07)
[2016-11-17] MEDS: IFOSFAMIDE IV SCH (22:07)
[2016-11-17] MEDS: DOCUSATE SODIUM 100 MG CAP PO PRN (22:58)
[2016-11-18] VITALS (10 sets, daily range): BP systolic 91–113; BP diastolic 52–59; PULSE 64–97; RESP 16–19
[2016-11-18] MEDS: SOD CHLORIDE 0.9% 1,000 ML IV SCH (05:16)
[2016-11-18 05:39] LABS: ADD SCAN DIFF NO
[2016-11-18 05:42] LABS: ABNORMAL IP MESSAGE 1; HEMATOCRIT 28.8 % (37.0-47.0); LYMPHOCYTES # 0.2 10^3/ul (0.8-2.9); LYMPHOCYTES % 4.1 % (15.0-51.0); MEAN CORPUSCULAR HGB CONC 31.3 g/dl (32.0-37.0); MEAN CORPUSCULAR VOLUME 89.4 fl (82.0-101.0); MEAN PLATELET VOLUME 9.9 fl (7.4-10.4); MONOCYTES % 0.5 % (0.0-11.0); NEUTROPHIL # 5.3 10^3/ul (1.6-7.5); NEUTROPHILS % 94.9 % (39.0-77.0); PLATELET COUNT 307 10^3/UL (140-415); RED BLOOD COUNT 3.22 10^6/ul (4.20-5.40); RED CELL DISTRIBUTION WIDTH 15.1 % (11.5-14.5); WHITE BLOOD COUNT 5.6 10^3/ul (4.8-10.8)
[2016-11-18 06:05] LABS: ALBUMIN 2.6 g/dl (3.3-4.9); ALBUMIN/GLOBULIN RATIO 1.04; BILIRUBIN,INDIRECT 0.1 mg/dl (0-1.1); BILIRUBIN,TOTAL 0.1 mg/dl (0.2-1.3); CREATININE 0.46 mg/dl (0.44-1.00); TOTAL PROTEIN 5.1 g/dl (6.1-8.1)
[2016-11-18 06:39] LABS: ADD UMIC YES; URINE BILIRUBIN (Dip) NEGATIVE (NEGATIVE); URINE BLOOD (Dip) TRACE (NEGATIVE); URINE COLOR LT. YELLOW (YELLOW); URINE GLUCOSE (Dip) NEGATIVE (NEGATIVE); URINE KETONES (Dip) TRACE (NEGATIVE); URINE LEUKOCYTE ESTERASE (Dip) 1+ (NEGATIVE); URINE NITRITE (Dip) NEGATIVE (NEGATIVE); URINE TOTAL PROTEIN (Dip) NEGATIVE (NEGATIVE); URINE UROBILINOGEN (Dip) 0.2 E.U./dL (0.1-1.0)
[2016-11-18 07:08] LABS: URINE RBCS 0-2 /HPF (0)
[2016-11-18] MEDS: DOCUSATE SODIUM 100 MG CAP PO PRN (10:20)
[2016-11-18] MEDS: AMOXICILLIN/CLAV 875 MG TAB PO SCH ×2 (10:20→21:02)
--- NOTE | 2016-11-18 13:19 | CONS ---
Date/Time of Note Date/Time of Note DATE: 11/18/16 TIME: : Assessment/Plan Assessment/Plan Chief Complaint/Hosp Course The patient is a 56-year-old female with recent diagnosis of endometrial cancer on 09/17/2016 by endometrial biopsy. The patient was diagnosed with stage IV endometrial cancer. She underwent CYNDI/BSO and recto-sigmoid en-bloc with low anastomosis per Dr. Bueno on 10/11/16. She had extensive positive retroperitoneal lymph nodes removed but the confluence of disease makes her classified as millimeter residual disease. Path report showed metastatic carcinosarcoma. Per Dr. Kitchen of pathology, tumor is poorly differentiated though mostly sarcoma (90%) in the metastases. Patient received cycle 1 ifosfamide/taxol on 10/25/16. - Patient readmitted for cycle 2 Ifosfamide/taxol. Plan for 4 cycles of ifosfamide/taxol followd by 4 cycles of carbo/taxol per discussion with Dr. Bueno. Side effects including N/V, fatigue, myelosuppression, allergic reaction, confusion, hemorrhagic cystitis discussed with the patient. Patient started on chemotherapy 11/16/16, Day 3 today. - Check daily UA while receiving ifosfamide. Urine culture showed > 100,000 enterococcus, would recommend empiric treatment given patient on chemotherapy. Patient started on augmentin per primary team, ken-sensitive. Patient asymptomatic. Monitor for hemorrhagic cystitis. - Avoid benzodiazpines or ambien while receiving ifosfamide. Monitor for DOMAIN ARCHITECT symptoms or encephalopathy with ifosfamide. - Patient will need decadron 20 mg PO 12 hours and 6 hours prior to paclitaxel - case management to obtain auth for neupogen 480 mcg for 10 days starting D4 - colace, miralax prn constipation Patient will need to be re-admitted approximately 12/06/16 for cycle 3 ifosfamide /taxol Chemo regimen Ifosfamide 1600 mg/mg2 IV once per week D1-3 Paclitaxel 135 mg/m2 IV over 3 hours D1 [place] 2000 mg IV over 12 hours once per day (15 minutes before ifosfamide) D1-3 Decadron 20 mg PO 12 hours and 6 hours prior to paclitaxel Neupogen 480 mcg subcutaneous once per day starting D4 until ANC > 2000 Problems: Consultation Date/Type/Reason Admit Date/Time November 15, 2016 at 10:12 Initial Consult Date 11/15/16 Type of Consultation: Oncology 24 HR Interval Summary Free Text/Dictation Doing well, had nausea this a.m. but now denies nausea. No hematuria, no confusion. +constipation Exam/Review of Systems Vital Signs Vitals Vital Signs Date Time Temp Pulse Resp B/P Pulse Ox O2 Delivery O2 Flow Rate FiO2 11/18/16 08:19 98.0 69 19 103/59 98 11/18/16 04:30 Room Air Intake and Output 11/17/16 11/17/16 11/18/16 15:00 23:00 07:00 Intake Total 95 ml 1211 ml 1760 ml Output Total 1500 ml Balance 95 ml 1211 ml 260 ml Exam Constitutional: alert, oriented Psych: no complaints Head: normocephalic Eyes: nl conjunctiva ENMT: nl external ears & nose Neck: non-tender, supple Respiratory: clear to auscultation, normal air movement Cardiovascular: nl pulses, regular rate and rhythm Gastrointestinal: soft, incision c/d/i Musculoskeletal: no edema, nl gait and stance Results Result Diagram: 11/18/16 0430 11/18/16 0430 Results 24 hrs Laboratory Tests Test 11/18/16 04:23 11/18/16 04:30 Urine Color LT. YELLOW Urine Clarity CLEAR Urine pH 6.0 Urine Specific [place] <=1.005 L Urine Ketones TRACE H Urine Nitrite NEGATIVE Urine Bilirubin NEGATIVE Urine Urobilinogen 0.2 E.U./dL Urine Leukocyte Esterase 1+ H Urine Microscopic RBC 0-2 Urine Microscopic WBC 0-2 Urine Hemoglobin TRACE Urine Glucose NEGATIVE Urine Total Protein NEGATIVE White Blood Count 5.6 # Red Blood Count 3.22 L Hemoglobin 9.0 L Hematocrit 28.8 L Mean Corpuscular Volume 89.4 Mean Corpuscular Hemoglobin 28.0 L Mean Corpuscular Hemoglobin Concent 31.3 L Red Cell Distribution Width 15.1 H Platelet Count 307 Mean Platelet Volume 9.9 Neutrophils % 94.9 H Lymphocytes % 4.1 L Monocytes % 0.5 Eosinophils % 0.0 Basophils % 0.0 Nucleated Red Blood Cells % 0.0 Neutrophils # 5.3 Lymphocytes # 0.2 L Monocytes # 0.0 L Eosinophils # 0.0 Basophils # 0.0 Nucleated Red Blood Cells # 0.0 Sodium Level 139 Potassium Level 4.0 Chloride Level 111 H Carbon Dioxide Level 26 Anion Gap 6 L Blood Urea Nitrogen 10 Creatinine 0.46 Glucose Level 114 Calcium Level 8.0 L Total Bilirubin 0.1 L Direct Bilirubin 0.00 Indirect Bilirubin 0.1 Aspartate Amino Transf (AST/SGOT) 30 Alanine Aminotransferase (ALT/SGPT) 37 Alkaline Phosphatase 50 Total Protein 5.1 L Albumin 2.6 L Globulin 2.50 Albumin/Globulin Ratio 1.04 Medications Medications Current Medications Acetaminophen/ Hydrocodone Bitart ([place] (5/325)) 1 tab Q4H PRN PO PAIN LEVEL 4 -7; Start 11/15/16 at 12:00 Ondansetron HCl (Zofran Inj) 4 mg Q4H PRN IV NAUSEA AND/OR VOMITING Last administered on 11/16/16 21:16; Admin Dose 4 MG; Start 11/15/16 at 12:00 Acetaminophen 650 mg 650 mg Q4H PRN PO PAIN AND OR ELEVATED TEMP; Start at 12:00 [place] 2000 mg/ Sodium Chloride 270 ml @ 22.5 mls/hr 14 IV Last administered on 11/17/16 21:47; Admin Dose 22.5 MLS/HR; Start 11/16/16 at 14:00; Stop at 01:59 Ifosfamide 2.672 gm/Sodium Chloride 250 ml @ 250 mls/hr 1415 IV Last administered on 11/17/16 22:07; Admin Dose 250 MLS/HR; Start 11/16/16 at 14:15 ; Stop 11/18/16 at 15:14 Ondansetron HCl/ Dexamethasone/ Famotidine/Sodium Chloride (Zofran Inj/ Decadron /Pepcid Iv/NS) 61 ml @ 120 mls/hr 1330 IVPB Last administered on 11/17/16 21: 05; Admin Dose 120 MLS/HR; Start 11/17/16 at 13:30; Stop 11/18/16 at 14:01 Filgrastim (Neupogen) 480 mcg DAILY@17 SC ; Start 11/19/16 at 17:00 Miscellaneous Information 1 ea NOTE XX ; Start 11/16/16 at 14:15; Stop 11/18/16 at 14:16 Miscellaneous Information 1 ea NOTE XX ; Start 11/16/16 at 14:15; Stop 11/18/16 at 14:16 Diphenhydramine HCl (Benadryl) 50 mg ONCE PRN IV ALLERGIC REACTION; Start at 11:00 Hydrocortisone (Solu-Cortef) 100 mg ONCE PRN IV ADVERSE RXN TO CHEMO; Start at 11:00 Docusate Sodium 100 mg 100 mg BID PRN PO CONSTIPATION Last administered on 11/18 10:20; Admin Dose 100 MG; Start 11/16/16 at 11:30 Sodium Chloride 150 ml @ 150 mls/hr 14 IV Last administered on 11/17/16 21:47 ; Admin Dose 150 MLS/HR; Start 11/16/16 at 14:00; Stop 11/18/16 at 14:59 Sodium Chloride (NS) 1,000 ml @ 50 mls/hr Q20H IV Last administered on 05:16; Admin Dose 50 MLS/HR; Start 11/16/16 at 16:00 Amoxicillin/ Clavulanate Potassium (Augmentin) 875 mg BID PO Last administered on 11/18/16 10:20; Admin Dose 875 MG; Start 11/17/16 at 14:00 LINDA SWANSON MD November 18, 2016 13:19
--- NOTE | 2016-11-18 16:15 | PN ---
Date/Time of Note Date/Time of Note DATE: 11/18/16 TIME: 16:13 Assessment/Plan VTE Prophylaxis VTE Prophylaxis Intervention: other Lines/Catheters [facility] PICC Line Urinary Cath still in place: No Assessment/Plan Assessment/Plan - Ecoli- urine - contact isolation - Augmentin 875 mg po , will check sensitivity tomorrow - Metastatic carcinosarcoma status post total abdominal hysterectomy and bilateral salpingo-oophorectomy, rectosigmoid en bloc with low anastomosis by Dr. Bueno on 10/11. Status post 1 cycle of chemotherapy. The patient is being admitted for second cycle of chemotherapy. Dr. Hoang is following in oncology consultation. - Gastritis. Continue Protonix. - CONSTIPATION- Bowel regimen Further recommendations based on clinical course. Plan of care discussed with Dr. Richardson. Subjective 24 Hr Interval Summary Respiratory: no complaints Cardiovascular: no complaints Gastrointestinal: no complaints Genitourinary: no complaints Exam/Review of Systems Vital Signs Vitals Vital Signs Date Time Temp Pulse Resp B/P Pulse Ox O2 Delivery O2 Flow Rate FiO2 11/18/16 08:19 98.0 69 19 103/59 98 11/18/16 04:30 Room Air Intake and Output 11/17/16 11/17/16 11/18/16 15:00 23:00 07:00 Intake Total 95 ml 1211 ml 1760 ml Output Total 1500 ml Balance 95 ml 1211 ml 260 ml Exam Respiratory: clear to auscultation Cardiovascular: regular rate and rhythm Gastrointestinal: non-tender, soft Genitourinary - Female: other Results Result Diagram: 11/18/16 0430 11/18/16 0430 Results 24 hrs Laboratory Tests Test 11/18/16 04:23 11/18/16 04:30 Urine Color LT. YELLOW Urine Clarity CLEAR Urine pH 6.0 Urine Specific [place] <=1.005 L Urine Ketones TRACE H Urine Nitrite NEGATIVE Urine Bilirubin NEGATIVE Urine Urobilinogen 0.2 E.U./dL Urine Leukocyte Esterase 1+ H Urine Microscopic RBC 0-2 Urine Microscopic WBC 0-2 Urine Hemoglobin TRACE Urine Glucose NEGATIVE Urine Total Protein NEGATIVE White Blood Count 5.6 # Red Blood Count 3.22 L Hemoglobin 9.0 L Hematocrit 28.8 L Mean Corpuscular Volume 89.4 Mean Corpuscular Hemoglobin 28.0 L Mean Corpuscular Hemoglobin Concent 31.3 L Red Cell Distribution Width 15.1 H Platelet Count 307 Mean Platelet Volume 9.9 Neutrophils % 94.9 H Lymphocytes % 4.1 L Monocytes % 0.5 Eosinophils % 0.0 Basophils % 0.0 Nucleated Red Blood Cells % 0.0 Neutrophils # 5.3 Lymphocytes # 0.2 L Monocytes # 0.0 L Eosinophils # 0.0 Basophils # 0.0 Nucleated Red Blood Cells # 0.0 Sodium Level 139 Potassium Level 4.0 Chloride Level 111 H Carbon Dioxide Level 26 Anion Gap 6 L Blood Urea Nitrogen 10 Creatinine 0.46 Glucose Level 114 Calcium Level 8.0 L Total Bilirubin 0.1 L Direct Bilirubin 0.00 Indirect Bilirubin 0.1 Aspartate Amino Transf (AST/SGOT) 30 Alanine Aminotransferase (ALT/SGPT) 37 Alkaline Phosphatase 50 Total Protein 5.1 L Albumin 2.6 L Globulin 2.50 Albumin/Globulin Ratio 1.04 Medications Medications Current Medications Acetaminophen/ Hydrocodone Bitart ([place] (5/325)) 1 tab Q4H PRN PO PAIN LEVEL 4 -7; Start 11/15/16 at 12:00 Ondansetron HCl (Zofran Inj) 4 mg Q4H PRN IV NAUSEA AND/OR VOMITING Last administered on 11/16/16 21:16; Admin Dose 4 MG; Start 11/15/16 at 12:00 Acetaminophen 650 mg 650 mg Q4H PRN PO PAIN AND OR ELEVATED TEMP; Start at 12:00 [place]/Sodium Chloride ([place]/NS) 270 ml @ 22.5 mls/hr 14 IV Last administered on 11/17/16 21:47; Admin Dose 22.5 MLS/HR; Start 11/16/16 at 14:00; Stop at 01:59 Filgrastim (Neupogen) 480 mcg DAILY@17 SC ; Start 11/19/16 at 17:00 Diphenhydramine HCl (Benadryl) 50 mg ONCE PRN IV ALLERGIC REACTION; Start at 11:00 Hydrocortisone (Solu-Cortef) 100 mg ONCE PRN IV ADVERSE RXN TO CHEMO; Start at 11:00 Docusate Sodium 100 mg 100 mg BID PRN PO CONSTIPATION Last administered on 11/18 10:20; Admin Dose 100 MG; Start 11/16/16 at 11:30 Sodium Chloride (NS) 1,000 ml @ 50 mls/hr Q20H IV Last administered on 05:16; Admin Dose 50 MLS/HR; Start 11/16/16 at 16:00 Amoxicillin/ Clavulanate Potassium (Augmentin) 875 mg BID PO Last administered on 11/18/16 10:20; Admin Dose 875 MG; Start 11/17/16 at 14:00 LATRICIA GABRIEL November 18, 2016 16:15
[2016-11-18] MEDS ORDERED: BISACODYL (EC) 5 MG TAB PO PRN (16:30)
[2016-11-18] MEDS: ONDANSETRON IVPB SCH (21:01)
[2016-11-18] MEDS: [UNRECOGNIZED DRUG - OTHER] IVPB SCH (21:01)
[2016-11-18] MEDS: FAMOTIDINE IVPB SCH (21:01)
[2016-11-18] MEDS: DEXAMETHASONE IVPB SCH (21:01)
[2016-11-18] MEDS: MESNA IV SCH (21:50)
[2016-11-18] MEDS: SOD CHLORIDE 0.9% 150 ML IV SCH (21:50)
[2016-11-18] MEDS: SOD CHLORIDE 0.9% IV SCH ×2 (21:50→22:22)
[2016-11-18] MEDS: IFOSFAMIDE IV SCH (22:22)
[2016-11-19 00:05] VITALS: BP 115/66; PULSE 100; RESP 16
[2016-11-19 01:05] VITALS: BP 101/56; PULSE 97; RESP 16
[2016-11-19] MEDS: SOD CHLORIDE 0.9% 1,000 ML IV SCH ×2 (03:51→11:40)
[2016-11-19 05:04] LABS: ADD SCAN DIFF NO
[2016-11-19 05:09] LABS: ABNORMAL IP MESSAGE 1; HEMATOCRIT 29.2 % (37.0-47.0); HEMOGLOBIN 9.2 g/dl (12.0-16.0); LYMPHOCYTES # 0.2 10^3/ul (0.8-2.9); LYMPHOCYTES % 3.3 % (15.0-51.0); MEAN CORPUSCULAR HGB CONC 31.5 g/dl (32.0-37.0); MEAN CORPUSCULAR VOLUME 88.8 fl (82.0-101.0); MEAN PLATELET VOLUME 9.5 fl (7.4-10.4); MONOCYTES % 0.6 % (0.0-11.0); NEUTROPHIL # 4.9 10^3/ul (1.6-7.5); PLATELET COUNT 307 10^3/UL (140-415); RED BLOOD COUNT 3.29 10^6/ul (4.20-5.40); RED CELL DISTRIBUTION WIDTH 15.2 % (11.5-14.5); WHITE BLOOD COUNT 5.1 10^3/ul (4.8-10.8)
[2016-11-19 05:11] VITALS: BP 106/60; RESP 18
[2016-11-19 05:20] LABS: NEUTROPHILS % 95.7 % (39.0-77.0)
[2016-11-19 05:28] LABS: ADD UMIC YES; URINE BILIRUBIN (Dip) NEGATIVE (NEGATIVE); URINE BLOOD (Dip) TRACE (NEGATIVE); URINE COLOR LT. YELLOW (YELLOW); URINE GLUCOSE (Dip) NEGATIVE (NEGATIVE); URINE KETONES (Dip) 40 (NEGATIVE); URINE LEUKOCYTE ESTERASE (Dip) NEGATIVE (NEGATIVE); URINE NITRITE (Dip) NEGATIVE (NEGATIVE); URINE TOTAL PROTEIN (Dip) NEGATIVE (NEGATIVE); URINE UROBILINOGEN (Dip) 0.2 E.U./dL (0.1-1.0)
[2016-11-19 05:29] LABS: ALBUMIN 2.5 g/dl (3.3-4.9); ALBUMIN/GLOBULIN RATIO 1.04; BILIRUBIN,INDIRECT 0.2 mg/dl (0-1.1); BILIRUBIN,TOTAL 0.2 mg/dl (0.2-1.3); CALCIUM 7.9 mg/dl (8.4-10.2); CREATININE 0.47 mg/dl (0.44-1.00); POTASSIUM 4.1 mmol/L (3.5-5.1); TOTAL PROTEIN 4.9 g/dl (6.1-8.1)
[2016-11-19 06:01] LABS: SQUAMOUS EPITHELIAL CELL,UR FEW
[2016-11-19 06:02] LABS: BACTERIA,URINE OCCASIONAL
[2016-11-19] MEDS: ONDANSETRON 4 MG INJ IV PRN ×2 (07:22→12:45)
[2016-11-19 07:32] VITALS: BP 113/67; RESP 18
[2016-11-19] MEDS: AMOXICILLIN/CLAV 875 MG TAB PO SCH ×2 (09:44→21:32)
[2016-11-19] MEDS: POLYETHYLENE GLYCOL 17 GM PACKET PO SCH (09:44)
--- NOTE | 2016-11-19 10:48 | CONS ---
Date/Time of Note Date/Time of Note DATE: 11/19/16 TIME: 10:45 Assessment/Plan Assessment/Plan Chief Complaint/Hosp Course The patient is a 56-year-old female with recent diagnosis of endometrial cancer on 09/17/2016 by endometrial biopsy. The patient was diagnosed with stage IV endometrial cancer. She underwent CYNDI/BSO and recto-sigmoid en-bloc with low anastomosis per Dr. Bueno on 10/11/16. She had extensive positive retroperitoneal lymph nodes removed but the confluence of disease makes her classified as millimeter residual disease. Path report showed metastatic carcinosarcoma. Per Dr. Kitchen of pathology, tumor is poorly differentiated though mostly sarcoma (90%) in the metastases. Patient received cycle 1 ifosfamide/taxol on 10/25/16. - Patient readmitted for cycle 2 Ifosfamide/taxol. Plan for 4 cycles of ifosfamide/taxol followd by 4 cycles of carbo/taxol per discussion with Dr. Bueno. Side effects including N/V, fatigue, myelosuppression, allergic reaction, confusion, hemorrhagic cystitis discussed with the patient. Patient started on chemotherapy 11/16/16, now completed. - Check daily UA while receiving ifosfamide. Urine culture showed > 100,000 enterococcus, would recommend empiric treatment given patient on chemotherapy. Patient started on augmentin per primary team, ken-sensitive. Patient asymptomatic. Monitor for hemorrhagic cystitis. - Avoid benzodiazpines or ambien while receiving ifosfamide. 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 - Patient received decadron 20 mg PO 12 hours and 6 hours prior to paclitaxel - case management to obtain auth for neupogen 480 mcg for 10 days starting D4 - colace, miralax prn constipation - zofran prn, added compazine and reglan prn nausea/vomiting. Consider adding akynzeo for next cycle chemotherapy, will need non-formulary filled out. Patient to remain inpatient for now for symptoms control of nausea and vomiting and pending case management authorization for neupogen Patient will need to be re-admitted approximately 12/06/16 for cycle 3 ifosfamide /taxol Chemo regimen (completed) Ifosfamide 1600 mg/mg2 IV once per week D1-3 Paclitaxel 135 mg/m2 IV over 3 hours D1 [place] 2000 mg IV over 12 hours once per day (15 minutes before ifosfamide) D1-3 Decadron 20 mg PO 12 hours and 6 hours prior to paclitaxel Neupogen 480 mcg subcutaneous once per day starting D4 until ANC > 2000 Problems: Consultation Date/Type/Reason Admit Date/Time November 15, 2016 at 10:12 Initial Consult Date 11/15/16 Type of Consultation: Oncology 24 HR Interval Summary Free Text/Dictation Patient states that she had a headache and nausea earlier and small amount of emesis x 2, however better after Tylenol and Zofran. Exam/Review of Systems Vital Signs Vitals Vital Signs Date Time Temp Pulse Resp B/P Pulse Ox O2 Delivery O2 Flow Rate FiO2 11/19/16 07:32 97.8 78 18 113/67 97 11/19/16 01:05 Room Air Intake and Output 11/18/16 11/18/16 11/19/16 15:00 23:00 07:00 Intake Total 1321 ml 1820 ml Balance 1321 ml 1820 ml Exam Constitutional: alert, oriented Psych: no complaints Head: normocephalic Eyes: nl conjunctiva ENMT: nl external ears & nose Neck: non-tender, supple Respiratory: clear to auscultation, normal air movement Cardiovascular: nl pulses, regular rate and rhythm Gastrointestinal: soft, incision c/d/i Musculoskeletal: no edema, nl gait and stance Results Result Diagram: 11/19/16 0435 11/19/16 0435 Results 24 hrs Laboratory Tests Test 11/19/16 04:35 11/19/16 05:10 White Blood Count 5.1 Red Blood Count 3.29 L Hemoglobin 9.2 L Hematocrit 29.2 L Mean Corpuscular Volume 88.8 Mean Corpuscular Hemoglobin 28.0 L Mean Corpuscular Hemoglobin Concent 31.5 L Red Cell Distribution Width 15.2 H Platelet Count 307 Mean Platelet Volume 9.5 Neutrophils % 95.7 H Lymphocytes % 3.3 L Monocytes % 0.6 Eosinophils % 0.0 Basophils % 0.0 Nucleated Red Blood Cells % 0.0 Neutrophils # 4.9 Lymphocytes # 0.2 L Monocytes # 0.0 L Eosinophils # 0.0 Basophils # 0.0 Nucleated Red Blood Cells # 0.0 Sodium Level 136 Potassium Level 4.1 Chloride Level 111 H Carbon Dioxide Level 26 Anion Gap 3 L Blood Urea Nitrogen 9 Creatinine 0.47 Glucose Level 124 Calcium Level 7.9 L Total Bilirubin 0.2 Direct Bilirubin 0.00 Indirect Bilirubin 0.2 Aspartate Amino Transf (AST/SGOT) 24 Alanine Aminotransferase (ALT/SGPT) 33 Alkaline Phosphatase 47 Total Protein 4.9 L Albumin 2.5 L Globulin 2.40 Albumin/Globulin Ratio 1.04 Urine Color LT. YELLOW Urine Clarity CLEAR Urine pH 7.5 Urine Specific [place] 1.010 Urine Ketones 40 Urine Nitrite NEGATIVE Urine Bilirubin NEGATIVE Urine Urobilinogen 0.2 E.U./dL Urine Leukocyte Esterase NEGATIVE Urine Microscopic RBC 2-5 Urine Microscopic WBC 5-10 Urine Squamous Epithelial Cells FEW Urine Bacteria OCCASIONAL Urine Hemoglobin TRACE Urine Glucose NEGATIVE Urine Total Protein NEGATIVE Medications Medications Current Medications Acetaminophen/ Hydrocodone Bitart ([place] (5/325)) 1 tab Q4H PRN PO PAIN LEVEL 4 -7; Start 11/15/16 at 12:00 Ondansetron HCl (Zofran Inj) 4 mg Q4H PRN IV NAUSEA AND/OR VOMITING Last administered on 11/19/16 07:22; Admin Dose 4 MG; Start 11/15/16 at 12:00 Acetaminophen (Tylenol Tab) 650 mg Q4H PRN PO PAIN AND OR ELEVATED TEMP Last administered on 11/19/16 07:22; Admin Dose 650 MG; Start 11/15/16 at 12:00 Filgrastim (Neupogen) 480 mcg DAILY@17 SC ; Start 11/19/16 at 17:00 Diphenhydramine HCl (Benadryl) 50 mg ONCE PRN IV ALLERGIC REACTION; Start at 11:00 Hydrocortisone (Solu-Cortef) 100 mg ONCE PRN IV ADVERSE RXN TO CHEMO; Start at 11:00 Docusate Sodium 100 mg 100 mg BID PRN PO CONSTIPATION Last administered on 11/18 10:20; Admin Dose 100 MG; Start 11/16/16 at 11:30 Sodium Chloride (NS) 1,000 ml @ 50 mls/hr Q20H IV Last administered on 05:16; Admin Dose 50 MLS/HR; Start 11/16/16 at 16:00 Amoxicillin/ Clavulanate Potassium (Augmentin) 875 mg BID PO Last administered on 11/19/16 09:44; Admin Dose 875 MG; Start 11/17/16 at 14:00 Bisacodyl (Dulcolax) 5 mg DAILY PRN PO CONSTIPATION Last administered on 18:50; Admin Dose 5 MG; Start 11/18/16 at 16:30 Polyethylene Glycol (Miralax) 17 gm DAILY PO Last administered on 11/19/16 09: 44; Admin Dose 17 GM; Start 11/19/16 at 09:00 Metoclopramide HCl (Reglan) 10 mg Q8H PRN IV Nausea; Start 11/19/16 at 11:00; Status UNV Prochlorperazine (Compazine Inj) 10 mg Q8H PRN IM NAUSEA AND/OR VOMITING; Start 11/19/16 at 11:00; Status UNV TOLINDA MD November 19, 2016 10:48
[2016-11-19] MEDS ORDERED: METOCLOPRAMIDE 10 MG INJ IV PRN (11:00)
[2016-11-19] MEDS ORDERED: PROCHLORPERAZINE 10 MG INJ IM PRN (11:00)
[2016-11-19] MEDS: HYDROCODONE/APAP (5/325) TAB PO PRN (12:45)
[2016-11-19] MEDS: FILGRASTIM 480 MCG INJ SC SCH (17:00)
--- NOTE | 2016-11-19 18:30 | PN ---
Date/Time of Note Date/Time of Note DATE: 11/19/16 TIME: 18:27 Assessment/Plan VTE Prophylaxis VTE Prophylaxis Intervention: SCD's Lines/Catheters [facility] P[facility] Line Central line still needed: Yes Urinary Cath still in place: No Assessment/Plan Chief Complaint/Hosp Course Patient's complains of nausea and poor appetite, complains of headache. Remains hemodynamically stable. Assessment and plan: - Metastatic carcinosarcoma status post total abdominal hysterectomy and bilateral salpingo-oophorectomy, rectosigmoid en bloc with low anastomosis by Dr. Bueno on 10/11. Status post 1 cycle of chemotherapy. The patient is being admitted for second cycle of chemotherapy. Dr. Hoang is following in oncology consultation. - Gastritis. Continue Protonix. Further recommendations based on clinical course. Plan of care discussed with Dr. Richardson. Problems: Subjective 24 Hr Interval Summary Free Text/Dictation Patient's complains of nausea and poor appetite, complains of headache. Exam/Review of Systems Vital Signs Vitals Vital Signs Date Time Temp Pulse Resp B/P Pulse Ox O2 Delivery O2 Flow Rate FiO2 11/19/16 07:32 97.8 78 18 113/67 97 11/19/16 01:05 Room Air Intake and Output 11/18/16 11/18/16 11/19/16 15:00 23:00 07:00 Intake Total 1321 ml 1820 ml Balance 1321 ml 1820 ml Exam Constitutional: alert, oriented Head: atraumatic, normocephalic Eyes: nl conjunctiva ENMT: nl external ears & nose Neck: non-tender, supple Respiratory: clear to auscultation Cardiovascular: nl pulses, regular rate and rhythm Gastrointestinal: non-tender, other (Status post surgery with intact surgical incision), soft Musculoskeletal: nl extremities to inspection Extremities: normal pulses Neurological: 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 intact Results Result Diagram: 11/19/16 0435 11/19/16 0435 Results 24 hrs Laboratory Tests Test 11/19/16 04:35 11/19/16 05:10 White Blood Count 5.1 Red Blood Count 3.29 L Hemoglobin 9.2 L Hematocrit 29.2 L Mean Corpuscular Volume 88.8 Mean Corpuscular Hemoglobin 28.0 L Mean Corpuscular Hemoglobin Concent 31.5 L Red Cell Distribution Width 15.2 H Platelet Count 307 Mean Platelet Volume 9.5 Neutrophils % 95.7 H Lymphocytes % 3.3 L Monocytes % 0.6 Eosinophils % 0.0 Basophils % 0.0 Nucleated Red Blood Cells % 0.0 Neutrophils # 4.9 Lymphocytes # 0.2 L Monocytes # 0.0 L Eosinophils # 0.0 Basophils # 0.0 Nucleated Red Blood Cells # 0.0 Sodium Level 136 Potassium Level 4.1 Chloride Level 111 H Carbon Dioxide Level 26 Anion Gap 3 L Blood Urea Nitrogen 9 Creatinine 0.47 Glucose Level 124 Calcium Level 7.9 L Total Bilirubin 0.2 Direct Bilirubin 0.00 Indirect Bilirubin 0.2 Aspartate Amino Transf (AST/SGOT) 24 Alanine Aminotransferase (ALT/SGPT) 33 Alkaline Phosphatase 47 Total Protein 4.9 L Albumin 2.5 L Globulin 2.40 Albumin/Globulin Ratio 1.04 Urine Color LT. YELLOW Urine Clarity CLEAR Urine pH 7.5 Urine Specific [place] 1.010 Urine Ketones 40 Urine Nitrite NEGATIVE Urine Bilirubin NEGATIVE Urine Urobilinogen 0.2 E.U./dL Urine Leukocyte Esterase NEGATIVE Urine Microscopic RBC 2-5 Urine Microscopic WBC 5-10 Urine Squamous Epithelial Cells FEW Urine Bacteria OCCASIONAL Urine Hemoglobin TRACE Urine Glucose NEGATIVE Urine Total Protein NEGATIVE Medications Medications Current Medications Acetaminophen/ Hydrocodone Bitart ([place] (5/325)) 1 tab Q4H PRN PO PAIN LEVEL 4 -7 Last administered on 11/19/16 12:45; Admin Dose 1 TAB; Start 11/15/16 at 12: 00 Ondansetron HCl (Zofran Inj) 4 mg Q4H PRN IV NAUSEA AND/OR VOMITING Last administered on 11/19/16 12:45; Admin Dose 4 MG; Start 11/15/16 at 12:00 Acetaminophen (Tylenol Tab) 650 mg Q4H PRN PO PAIN AND OR ELEVATED TEMP Last administered on 11/19/16 07:22; Admin Dose 650 MG; Start 11/15/16 at 12:00 Filgrastim (Neupogen) 480 mcg DAILY@17 SC ; Start 11/19/16 at 17:00; Status Future Hold Diphenhydramine HCl (Benadryl) 50 mg ONCE PRN IV ALLERGIC REACTION; Start at 11:00 Hydrocortisone (Solu-Cortef) 100 mg ONCE PRN IV ADVERSE RXN TO CHEMO; Start at 11:00 Docusate Sodium 100 mg 100 mg BID PRN PO CONSTIPATION Last administered on 11/18 10:20; Admin Dose 100 MG; Start 11/16/16 at 11:30 Sodium Chloride (NS) 1,000 ml @ 50 mls/hr Q20H IV Last administered on 11:40; Admin Dose 50 MLS/HR; Start 11/16/16 at 16:00 Amoxicillin/ Clavulanate Potassium (Augmentin) 875 mg BID PO Last administered on 11/19/16 09:44; Admin Dose 875 MG; Start 11/17/16 at 14:00 Bisacodyl (Dulcolax) 5 mg DAILY PRN PO CONSTIPATION Last administered on 18:50; Admin Dose 5 MG; Start 11/18/16 at 16:30 Polyethylene Glycol (Miralax) 17 gm DAILY PO Last administered on 11/19/16 09: 44; Admin Dose 17 GM; Start 11/19/16 at 09:00 Metoclopramide HCl (Reglan) 10 mg Q8H PRN IV Nausea; Start 11/19/16 at 11:00 Prochlorperazine (Compazine Inj) 10 mg Q8H PRN IM NAUSEA AND/OR VOMITING; Start 11/19/16 at 11:00 ELVIN TEIXEIRA November 19, 2016 18:30
[2016-11-19 20:25] VITALS: BP 90/46; RESP 17
[2016-11-20 05:48] LABS: ADD SCAN DIFF NO
[2016-11-20 05:56] LABS: ABNORMAL IP MESSAGE 1; BASOPHILS % 0.4 % (0.0-2.0); EOSINOPHILS % 0.8 % (0.0-7.0); HEMOGLOBIN 8.4 g/dl (12.0-16.0); LYMPHOCYTES # 0.4 10^3/ul (0.8-2.9); LYMPHOCYTES % 14.6 % (15.0-51.0); MEAN CORPUSCULAR HEMOGLOBIN 27.5 pg (29.0-33.0); MEAN CORPUSCULAR HGB CONC 31.1 g/dl (32.0-37.0); MEAN CORPUSCULAR VOLUME 88.5 fl (82.0-101.0); MEAN PLATELET VOLUME 9.7 fl (7.4-10.4); MONOCYTES % 0.8 % (0.0-11.0); NEUTROPHIL # 2.2 10^3/ul (1.6-7.5); PLATELET COUNT 274 10^3/UL (140-415); RED BLOOD COUNT 3.05 10^6/ul (4.20-5.40); RED CELL DISTRIBUTION WIDTH 15.5 % (11.5-14.5); WHITE BLOOD COUNT 2.6 10^3/ul (4.8-10.8)
[2016-11-20] MEDS: SOD CHLORIDE 0.9% 1,000 ML IV SCH (06:13)
[2016-11-20 06:16] LABS: ALBUMIN 2.4 g/dl (3.3-4.9); ALBUMIN/GLOBULIN RATIO 1.04; BILIRUBIN,INDIRECT 0.3 mg/dl (0-1.1); BILIRUBIN,TOTAL 0.3 mg/dl (0.2-1.3); CALCIUM 7.8 mg/dl (8.4-10.2); CREATININE 0.48 mg/dl (0.44-1.00); POTASSIUM 3.3 mmol/L (3.5-5.1); TOTAL PROTEIN 4.7 g/dl (6.1-8.1)
[2016-11-20 08:13] VITALS: BP 96/58; RESP 16
[2016-11-20] MEDS: POLYETHYLENE GLYCOL 17 GM PACKET PO SCH (08:43)
[2016-11-20] MEDS: AMOXICILLIN/CLAV 875 MG TAB PO SCH ×2 (08:43→22:07)
[2016-11-20] MEDS: ONDANSETRON 4 MG INJ IV PRN (08:47)
--- NOTE | 2016-11-20 10:13 | CONS ---
Date/Time of Note Date/Time of Note DATE: 11/20/16 TIME: 10:11 Assessment/Plan Assessment/Plan Chief Complaint/Hosp Course The patient is a 56-year-old female with recent diagnosis of endometrial cancer on 09/17/2016 by endometrial biopsy. The patient was diagnosed with stage IV endometrial cancer. She underwent CYNDI/BSO and recto-sigmoid en-bloc with low anastomosis per Dr. Bueno on 10/11/16. She had extensive positive retroperitoneal lymph nodes removed but the confluence of disease makes her classified as millimeter residual disease. Path report showed metastatic carcinosarcoma. Per Dr. Kitchen of pathology, tumor is poorly differentiated though mostly sarcoma (90%) in the metastases. Patient received cycle 1 ifosfamide/taxol on 10/25/16. - Patient readmitted for cycle 2 Ifosfamide/taxol. Plan for 4 cycles of ifosfamide/taxol followd by 4 cycles of carbo/taxol per discussion with Dr. Bueno. Side effects including N/V, fatigue, myelosuppression, allergic reaction, confusion, hemorrhagic cystitis discussed with the patient. Patient started on chemotherapy 11/16/16, now completed. - Check daily UA while receiving ifosfamide. Urine culture showed > 100,000 enterococcus, would recommend empiric treatment given patient on chemotherapy. Patient started on augmentin per primary team, ken-sensitive. Patient asymptomatic. Monitor for hemorrhagic cystitis. - Avoid benzodiazpines or ambien while receiving ifosfamide. Monitor for CARROT BUNCHER symptoms or encephalopathy with ifosfamide. - Patient received decadron 20 mg PO 12 hours and 6 hours prior to paclitaxel - case management to obtain auth for neupogen 480 mcg for 10 days starting D4 - colace, miralax prn constipation - zofran prn, added compazine and reglan prn nausea/vomiting. Consider adding akynzeo for next cycle chemotherapy, will need non-formulary filled out. Patient to remain inpatient for now for symptoms control of nausea and vomiting and monitoring of blood counts pending case management authorization for neupogen Will need neupogen teaching by RN Patient will need to be re-admitted approximately 12/06/16 for cycle 3 ifosfamide/ taxol Chemo regimen (completed) Ifosfamide 1600 mg/mg2 IV once per week D1-3 Paclitaxel 135 mg/m2 IV over 3 hours D1 [place] 2000 mg IV over 12 hours once per day (15 minutes before ifosfamide) D1-3 Decadron 20 mg PO 12 hours and 6 hours prior to paclitaxel Neupogen 480 mcg subcutaneous once per day starting D4 until ANC > 2000 Problems: Consultation Date/Type/Reason Admit Date/Time November 15, 2016 at 10:12 Initial Consult Date 11/15/16 Type of Consultation: Oncology 24 HR Interval Summary Free Text/Dictation Patient had one episode of emesis this morning and nausea but states better with anti-emetics. No hematuria, no confusion. Exam/Review of Systems Vital Signs Vitals Vital Signs Date Time Temp Pulse Resp B/P Pulse Ox O2 Delivery O2 Flow Rate FiO2 11/20/16 08:13 98.0 83 16 96/58 95 11/19/16 01:05 Room Air Intake and Output 11/19/16 11/19/16 11/20/16 15:00 23:00 07:00 Intake Total 100 ml 800 ml 1200 ml Balance 100 ml 800 ml 1200 ml Exam Constitutional: alert, oriented Psych: no complaints Head: normocephalic Eyes: nl conjunctiva ENMT: nl external ears & nose Neck: non-tender, supple Respiratory: clear to auscultation, normal air movement Cardiovascular: nl pulses, regular rate and rhythm Gastrointestinal: soft, incision c/d/i Musculoskeletal: no edema, nl gait and stance Results Result Diagram: 11/20/16 0455 11/20/16 0455 Results 24 hrs Laboratory Tests Test 11/20/16 04:55 White Blood Count 2.6 #L Red Blood Count 3.05 L Hemoglobin 8.4 L Hematocrit 27.0 L Mean Corpuscular Volume 88.5 Mean Corpuscular Hemoglobin 27.5 L Mean Corpuscular Hemoglobin Concent 31.1 L Red Cell Distribution Width 15.5 H Platelet Count 274 Mean Platelet Volume 9.7 Neutrophils % 83.0 H Lymphocytes % 14.6 L Monocytes % 0.8 Eosinophils % 0.8 Basophils % 0.4 Nucleated Red Blood Cells % 0.0 Neutrophils # 2.2 Lymphocytes # 0.4 L Monocytes # 0.0 L Eosinophils # 0.0 Basophils # 0.0 Nucleated Red Blood Cells # 0.0 Sodium Level 135 Potassium Level 3.3 L Chloride Level 107 Carbon Dioxide Level 28 Anion Gap 3 L Blood Urea Nitrogen 8 Creatinine 0.48 Glucose Level 89 Calcium Level 7.8 L Total Bilirubin 0.3 Direct Bilirubin 0.00 Indirect Bilirubin 0.3 Aspartate Amino Transf (AST/SGOT) 39 Alanine Aminotransferase (ALT/SGPT) 40 Alkaline Phosphatase 47 Total Protein 4.7 L Albumin 2.4 L Globulin 2.30 Albumin/Globulin Ratio 1.04 Medications Medications Current Medications Acetaminophen/ Hydrocodone Bitart ([place] (5/325)) 1 tab Q4H PRN PO PAIN LEVEL 4 -7 Last administered on 11/19/16 12:45; Admin Dose 1 TAB; Start 11/15/16 at 12: 00 Ondansetron HCl (Zofran Inj) 4 mg Q4H PRN IV NAUSEA AND/OR VOMITING Last administered on 11/20/16 08:47; Admin Dose 4 MG; Start 11/15/16 at 12:00 Acetaminophen (Tylenol Tab) 650 mg Q4H PRN PO PAIN AND OR ELEVATED TEMP Last administered on 11/19/16 07:22; Admin Dose 650 MG; Start 11/15/16 at 12:00 Filgrastim (Neupogen) 480 mcg DAILY@17 SC ; Start 11/19/16 at 17:00; Status Future Hold Diphenhydramine HCl (Benadryl) 50 mg ONCE PRN IV ALLERGIC REACTION; Start at 11:00 Hydrocortisone (Solu-Cortef) 100 mg ONCE PRN IV ADVERSE RXN TO CHEMO; Start at 11:00 Docusate Sodium 100 mg 100 mg BID PRN PO CONSTIPATION Last administered on 11/18 10:20; Admin Dose 100 MG; Start 11/16/16 at 11:30 Sodium Chloride (NS) 1,000 ml @ 50 mls/hr Q20H IV Last administered on 06:13; Admin Dose 50 MLS/HR; Start 11/16/16 at 16:00 Amoxicillin/ Clavulanate Potassium (Augmentin) 875 mg BID PO Last administered on 11/20/16 08:43; Admin Dose 875 MG; Start 11/17/16 at 14:00 Bisacodyl (Dulcolax) 5 mg DAILY PRN PO CONSTIPATION Last administered on 18:50; Admin Dose 5 MG; Start 11/18/16 at 16:30 Polyethylene Glycol (Miralax) 17 gm DAILY PO Last administered on 11/20/16t 08: 43; Admin Dose 17 GM; Start 11/19/16 at 09:00 Metoclopramide HCl (Reglan) 10 mg Q8H PRN IV Nausea; Start 11/19/16 at 11:00 Prochlorperazine (Compazine Inj) 10 mg Q8H PRN IM NAUSEA AND/OR VOMITING; Start 11/19/16 at 11:00 LINDA SWANSON MD November 20, 2016 10:13
--- NOTE | 2016-11-20 15:59 | PN ---
Date/Time of Note Date/Time of Note DATE: 11/20/16 TIME: 15:54 Assessment/Plan VTE Prophylaxis VTE Prophylaxis Intervention: SCD's Lines/Catheters IV C[facility] Type [facility] PICC Line Central line still needed: Yes Urinary Cath still in place: No Assessment/Plan Chief Complaint/Hosp Course Patient's continues to have nausea with emesis today in the morning, slightly hypotensive, will give IV fluids, replace potassium. Pending authorization for Neupogen prior to discharge. Assessment and plan: - Metastatic carcinosarcoma status post total abdominal hysterectomy and bilateral salpingo-oophorectomy, rectosigmoid en bloc with low anastomosis by Dr. Bueno on 10/11. Status post 1 cycle of chemotherapy. The patient is being admitted for second cycle of chemotherapy. Dr. Hoang is following in oncology consultation. - Gastritis. Continue Protonix. Further recommendations based on clinical course. Plan of care discussed with Dr. Richardson. Problems: Exam/Review of Systems Vital Signs Vitals Vital Signs Date Time Temp Pulse Resp B/P Pulse Ox O2 Delivery O2 Flow Rate FiO2 11/20/16 08:13 98.0 83 16 96/58 95 11/19/16 01:05 Room Air Intake and Output 11/19/16 11/19/16 11/20/16 15:00 23:00 07:00 Intake Total 100 ml 800 ml 1200 ml Balance 100 ml 800 ml 1200 ml Exam Constitutional: alert, oriented Head: atraumatic, normocephalic Eyes: nl conjunctiva ENMT: nl external ears & nose Neck: non-tender, supple Respiratory: clear to auscultation Cardiovascular: nl pulses, regular rate and rhythm Gastrointestinal: non-tender, other (Status post surgery with intact surgical incision), soft Musculoskeletal: nl extremities to inspection Extremities: normal pulses Neurological: CLINICAL PSYCHOLOGIST II-XII intact Results Result Diagram: 11/20/16 0455 11/20/16 0455 Results 24 hrs Laboratory Tests Test 11/20/16 04:55 White Blood Count 2.6 #L Red Blood Count 3.05 L Hemoglobin 8.4 L Hematocrit 27.0 L Mean Corpuscular Volume 88.5 Mean Corpuscular Hemoglobin 27.5 L Mean Corpuscular Hemoglobin Concent 31.1 L Red Cell Distribution Width 15.5 H Platelet Count 274 Mean Platelet Volume 9.7 Neutrophils % 83.0 H Lymphocytes % 14.6 L Monocytes % 0.8 Eosinophils % 0.8 Basophils % 0.4 Nucleated Red Blood Cells % 0.0 Neutrophils # 2.2 Lymphocytes # 0.4 L Monocytes # 0.0 L Eosinophils # 0.0 Basophils # 0.0 Nucleated Red Blood Cells # 0.0 Sodium Level 135 Potassium Level 3.3 L Chloride Level 107 Carbon Dioxide Level 28 Anion Gap 3 L Blood Urea Nitrogen 8 Creatinine 0.48 Glucose Level 89 Calcium Level 7.8 L Total Bilirubin 0.3 Direct Bilirubin 0.00 Indirect Bilirubin 0.3 Aspartate Amino Transf (AST/SGOT) 39 Alanine Aminotransferase (ALT/SGPT) 40 Alkaline Phosphatase 47 Total Protein 4.7 L Albumin 2.4 L Globulin 2.30 Albumin/Globulin Ratio 1.04 Medications Medications Current Medications Acetaminophen/ Hydrocodone Bitart ([place] (5/325)) 1 tab Q4H PRN PO PAIN LEVEL 4 -7 Last administered on 11/19/16 12:45; Admin Dose 1 TAB; Start 11/15/16 at 12: 00 Ondansetron HCl (Zofran Inj) 4 mg Q4H PRN IV NAUSEA AND/OR VOMITING Last administered on 11/20/16 08:47; Admin Dose 4 MG; Start 11/15/16 at 12:00 Acetaminophen (Tylenol Tab) 650 mg Q4H PRN PO PAIN AND OR ELEVATED TEMP Last administered on 11/19/16 07:22; Admin Dose 650 MG; Start 11/15/16 at 12:00 Filgrastim (Neupogen) 480 mcg DAILY@17 SC ; Start 11/19/16 at 17:00; Status Future hold Diphenhydramine HCl (Benadryl) 50 mg ONCE PRN IV ALLERGIC REACTION; Start at 11:00 Hydrocortisone (Solu-Cortef) 100 mg ONCE PRN IV ADVERSE RXN TO CHEMO; Start at 11:00 Docusate Sodium 100 mg 100 mg BID PRN PO CONSTIPATION Last administered on 11/18 10:20; Admin Dose 100 MG; Start 11/16/16 at 11:30 Sodium Chloride (NS) 1,000 ml @ 50 mls/hr Q20H IV Last administered on 06:13; Admin Dose 50 MLS/HR; Start 11/16/16 at 16:00 Amoxicillin/ Clavulanate Potassium (Augmentin) 875 mg BID PO Last administered on 11/20/16 08:43; Admin Dose 875 MG; Start 11/17/16 at 14:00 Bisacodyl (Dulcolax) 5 mg DAILY PRN PO CONSTIPATION Last administered on 18:50; Admin Dose 5 MG; Start 11/18/16 at 16:30 Polyethylene Glycol (Miralax) 17 gm DAILY PO Last administered on 11/20/16 08: 43; Admin Dose 17 GM; Start 11/19/16 at 09:00 Metoclopramide HCl (Reglan) 10 mg Q8H PRN IV Nausea; Start 11/19/16 at 11:00 Prochlorperazine (Compazine Inj) 10 mg Q8H PRN IM NAUSEA AND/OR VOMITING; Start 11/19/16 at 11:00 ELVIN TEIXEIRA November 20, 2016 15:59
[2016-11-20] MEDS: NS + KCL 20 MEQ 1,000 ML IV SCH (17:33)
[2016-11-20] MEDS: FILGRASTIM 480 MCG INJ SC SCH (18:37)
[2016-11-20 20:33] VITALS: BP 104/60; RESP 18
[2016-11-21] MEDS: ONDANSETRON 4 MG INJ IV PRN (00:20)
[2016-11-21] MEDS: NS + KCL 20 MEQ 1,000 ML IV SCH ×2 (05:01→17:43)
[2016-11-21 05:06] LABS: ADD SCAN DIFF NO
[2016-11-21 05:07] LABS: ABNORMAL IP MESSAGE 1; BASOPHILS % 0.2 % (0.0-2.0); EOSINOPHILS % 0.1 % (0.0-7.0); HEMATOCRIT 27.9 % (37.0-47.0); HEMOGLOBIN 8.7 g/dl (12.0-16.0); LYMPHOCYTES # 0.3 10^3/ul (0.8-2.9); LYMPHOCYTES % 1.9 % (15.0-51.0); MEAN CORPUSCULAR HEMOGLOBIN 27.7 pg (29.0-33.0); MEAN CORPUSCULAR HGB CONC 31.2 g/dl (32.0-37.0); MEAN CORPUSCULAR VOLUME 88.9 fl (82.0-101.0); MEAN PLATELET VOLUME 9.3 fl (7.4-10.4); MONOCYTES % 0.1 % (0.0-11.0); NEUTROPHIL # 15.7 10^3/ul (1.6-7.5); PLATELET COUNT 273 10^3/UL (140-415); RED BLOOD COUNT 3.14 10^6/ul (4.20-5.40); RED CELL DISTRIBUTION WIDTH 15.6 % (11.5-14.5)
[2016-11-21 05:27] LABS: ALBUMIN 2.6 g/dl (3.3-4.9)
[2016-11-21 05:28] LABS: POTASSIUM 3.6 mmol/L (3.5-5.1)
[2016-11-21 05:30] LABS: ALBUMIN/GLOBULIN RATIO 1.04; BILIRUBIN,INDIRECT 0.3 mg/dl (0-1.1); BILIRUBIN,TOTAL 0.3 mg/dl (0.2-1.3); CREATININE 0.49 mg/dl (0.44-1.00); TOTAL PROTEIN 5.1 g/dl (6.1-8.1)
[2016-11-21 05:40] LABS: NEUTROPHILS % 92.5 % (39.0-77.0)
[2016-11-21 07:28] VITALS: BP 118/68; RESP 19
[2016-11-21] MEDS: POLYETHYLENE GLYCOL 17 GM PACKET PO SCH (08:53)
[2016-11-21] MEDS: AMOXICILLIN/CLAV 875 MG TAB PO SCH ×2 (08:53→20:58)
--- NOTE | 2016-11-21 11:46 | CONS ---
Date/Time of Note Date/Time of Note DATE: 11/21/16 TIME: 11:44 Assessment/Plan Assessment/Plan Chief Complaint/Hosp Course The patient is a 56-year-old female with recent diagnosis of endometrial cancer on 09/17/2016 by endometrial biopsy. The patient was diagnosed with stage IV endometrial cancer. She underwent CYNDI/BSO and recto-sigmoid en-bloc with low anastomosis per Dr. Bueno on 10/11/16. She had extensive positive retroperitoneal lymph nodes removed but the confluence of disease makes her classified as millimeter residual disease. Path report showed metastatic carcinosarcoma. Per Dr. Kitchen of pathology, tumor is poorly differentiated though mostly sarcoma (90%) in the metastases. Patient received cycle 1 ifosfamide/taxol on 10/25/16. - Patient readmitted for cycle 2 Ifosfamide/taxol. Plan for 4 cycles of ifosfamide/taxol followd by 4 cycles of carbo/taxol per discussion with Dr. Bueno. Side effects including N/V, fatigue, myelosuppression, allergic reaction, confusion, hemorrhagic cystitis discussed with the patient. Patient started on chemotherapy 11/16/16, now completed. - Check daily UA while receiving ifosfamide. Urine culture showed > 100,000 enterococcus, would recommend empiric treatment given patient on chemotherapy. Patient started on augmentin per primary team, ken-sensitive. Patient asymptomatic. Monitor for hemorrhagic cystitis. - Avoid benzodiazpines or ambien while receiving ifosfamide. Monitor for [employer]PAREL MERCHANDISER symptoms or encephalopathy with ifosfamide. - Patient received decadron 20 mg PO 12 hours and 6 hours prior to paclitaxel - case management to obtain auth for neupogen 480 mcg for 10 days starting D4 and home health to administer neupogen - colace, miralax prn constipation - zofran prn, added compazine and reglan prn nausea/vomiting. Consider adding akynzeo for next cycle chemotherapy, will need non-formulary filled out. Patient to remain inpatient for now for symptoms control of nausea and vomiting and monitoring of blood counts pending case management authorization for neupogen Patient will need to be re-admitted approximately 12/06/16 for cycle 3 ifosfamide/ taxol Chemo regimen (completed) Ifosfamide 1600 mg/mg2 IV once per week D1-3 Paclitaxel 135 mg/m2 IV over 3 hours D1 [place] 2000 mg IV over 12 hours once per day (15 minutes before ifosfamide) D1-3 Decadron 20 mg PO 12 hours and 6 hours prior to paclitaxel Neupogen 480 mcg subcutaneous once per day starting D4 for 10 days. NOTE: Patient's counts will drop and dax 7-10 days out from chemotherapy so ok to continue neupogen despite rise in WBC/ANC. Problems: Consultation Date/Type/Reason Admit Date/Time November 15, 2016 at 10:12 Initial Consult Date 11/15/16 Type of Consultation: Oncology 24 HR Interval Summary Free Text/Dictation Patient had some nausea but currently states that she feels well. Exam/Review of Systems Vital Signs Vitals Vital Signs Date Time Temp Pulse Resp B/P Pulse Ox O2 Delivery O2 Flow Rate FiO2 11/21/16 07:28 98.0 92 19 118/68 98 11/19/16 01:05 Room Air Intake and Output 11/20/16 11/20/16 11/21/16 15:00 23:00 07:00 Intake Total 1170 ml 1500 ml Balance 1170 ml 1500 ml Exam Constitutional: alert, oriented Psych: no complaints Head: normocephalic Eyes: nl conjunctiva ENMT: nl external ears & nose Neck: non-tender, supple Respiratory: clear to auscultation, normal air movement Cardiovascular: nl pulses, regular rate and rhythm Gastrointestinal: soft, incision c/d/i Musculoskeletal: no edema, nl gait and stance Results Result Diagram: 11/21/16 0445 11/21/16 0435 Results 24 hrs Laboratory Tests Test 11/21/16 04:35 11/21/16 04:45 Sodium Level 137 Potassium Level 3.6 Chloride Level 106 Carbon Dioxide Level 25 Anion Gap 10 # Blood Urea Nitrogen 9 Creatinine 0.49 Glucose Level 93 Calcium Level 8.0 L Total Bilirubin 0.3 Direct Bilirubin 0.00 Indirect Bilirubin 0.3 Aspartate Amino Transf (AST/SGOT) 33 Alanine Aminotransferase (ALT/SGPT) 46 Alkaline Phosphatase 51 Total Protein 5.1 L Albumin 2.6 L Globulin 2.50 Albumin/Globulin Ratio 1.04 White Blood Count 17.0 #H Red Blood Count 3.14 L Hemoglobin 8.7 L Hematocrit 27.9 L Mean Corpuscular Volume 88.9 Mean Corpuscular Hemoglobin 27.7 L Mean Corpuscular Hemoglobin Concent 31.2 L Red Cell Distribution Width 15.6 H Platelet Count 273 Mean Platelet Volume 9.3 Neutrophils % 92.5 H Lymphocytes % 1.9 L Monocytes % 0.1 Eosinophils % 0.1 Basophils % 0.2 Nucleated Red Blood Cells % 0.0 Neutrophils # 15.7 H Lymphocytes # 0.3 L Monocytes # 0.0 L Eosinophils # 0.0 Basophils # 0.0 Nucleated Red Blood Cells # 0.0 Medications Medications Current Medications Acetaminophen/ Hydrocodone Bitart ([place] (5/325)) 1 tab Q4H PRN PO PAIN LEVEL 4 -7 Last administered on 11/19/16 12:45; Admin Dose 1 TAB; Start 11/15/16 at 12: 00 Ondansetron HCl (Zofran Inj) 4 mg Q4H PRN IV NAUSEA AND/OR VOMITING Last administered on 11/21/16 00:20; Admin Dose 4 MG; Start 11/15/16 at 12:00 Acetaminophen (Tylenol Tab) 650 mg Q4H PRN PO PAIN AND OR ELEVATED TEMP Last administered on 11/19/16 07:22; Admin Dose 650 MG; Start 11/15/16 at 12:00 Filgrastim (Neupogen) 480 mcg DAILY@17 SC Last administered on 11/20/16 18:37 ; Admin Dose 480 MCG; Start 11/19/16 at 17:00; Status Future hold Diphenhydramine HCl (Benadryl) 50 mg ONCE PRN IV ALLERGIC REACTION; Start at 11:00 Hydrocortisone (Solu-Cortef) 100 mg ONCE PRN IV ADVERSE RXN TO CHEMO; Start at 11:00 Docusate Sodium (Colace) 100 mg BID PRN PO CONSTIPATION Last administered on 10:20; Admin Dose 100 MG; Start 11/16/16 at 11:30 Amoxicillin/ Clavulanate Potassium (Augmentin) 875 mg BID PO Last administered on 11/21/16 08:53; Admin Dose 875 MG; Start 11/17/16 at 14:00 Bisacodyl (Dulcolax) 5 mg DAILY PRN PO CONSTIPATION Last administered on 18:50; Admin Dose 5 MG; Start 11/18/16 at 16:30 Polyethylene Glycol (Miralax) 17 gm DAILY PO Last administered on 11/21/16 08: 53; Admin Dose 17 GM; Start 11/19/16 at 09:00 Metoclopramide HCl (Reglan) 10 mg Q8H PRN IV Nausea; Start 11/19/16 at 11:00 Prochlorperazine 10 mg 10 mg Q8H PRN IM NAUSEA AND/OR VOMITING; Start 11/19/16 at 11:00 Potassium Chloride/Sodium Chloride (NS-KCl 20 Meq) 1,000 ml @ 80 mls/hr [id number] IV Last administered on 11/21/16 05:01; Admin Dose 80 MLS/HR; Start at 16:30 TOLINDA MD November 21, 2016 11:46
--- NOTE | 2016-11-21 16:46 | PN ---
Date/Time of Note Date/Time of Note DATE: 11/21/16 TIME: 16:43 Assessment/Plan VTE Prophylaxis VTE Prophylaxis Intervention: SCD's Lines/Catheters IV Catheter Type (from [facility]): PICC Line Central line still needed: Yes Urinary Cath still in place: No Assessment/Plan Chief Complaint/Hosp Course Patient with intermittent nausea, denies any vomiting. Assessment and plan: - Metastatic carcinosarcoma status post total abdominal hysterectomy and bilateral salpingo-oophorectomy, rectosigmoid en bloc with low anastomosis by Dr. Bueno on 10/11. Status post 1 cycle of chemotherapy. The patient is being admitted for second cycle of chemotherapy. Dr. Hoang is following in oncology consultation. - Gastritis. Continue Protonix. Further recommendations based on clinical course. Plan of care discussed with Dr. Richardson. Problems: Exam/Review of Systems Vital Signs Vitals Vital Signs Date Time Temp Pulse Resp B/P Pulse Ox O2 Delivery O2 Flow Rate FiO2 11/21/16 07:28 98.0 92 19 118/68 98 11/19/16 01:05 Room Air Intake and Output 11/20/16 11/20/16 11/21/16 15:00 23:00 07:00 Intake Total 1170 ml 1500 ml Balance 1170 ml 1500 ml Exam Constitutional: alert, oriented Head: atraumatic, normocephalic Eyes: nl conjunctiva ENMT: nl external ears & nose Neck: non-tender, supple Respiratory: clear to auscultation Cardiovascular: nl pulses, regular rate and rhythm Gastrointestinal: non-tender, other (Status post surgery with intact surgical incision), soft Musculoskeletal: nl extremities to inspection Extremities: normal pulses Neurological: QUALITY MEASUREMENT SPECIALIST II-XII intact Results Result Diagram: 11/21/16 0445 11/21/16 0435 Results 24 hrs Laboratory Tests Test 11/21/16 04:35 11/21/16 04:45 Sodium Level 137 Potassium Level 3.6 Chloride Level 106 Carbon Dioxide Level 25 Anion Gap 10 # Blood Urea Nitrogen 9 Creatinine 0.49 Glucose Level 93 Calcium Level 8.0 L Total Bilirubin 0.3 Direct Bilirubin 0.00 Indirect Bilirubin 0.3 Aspartate Amino Transf (AST/SGOT) 33 Alanine Aminotransferase (ALT/SGPT) 46 Alkaline Phosphatase 51 Total Protein 5.1 L Albumin 2.6 L Globulin 2.50 Albumin/Globulin Ratio 1.04 White Blood Count 17.0 #H Red Blood Count 3.14 L Hemoglobin 8.7 L Hematocrit 27.9 L Mean Corpuscular Volume 88.9 Mean Corpuscular Hemoglobin 27.7 L Mean Corpuscular Hemoglobin Concent 31.2 L Red Cell Distribution Width 15.6 H Platelet Count 273 Mean Platelet Volume 9.3 Neutrophils % 92.5 H Lymphocytes % 1.9 L Monocytes % 0.1 Eosinophils % 0.1 Basophils % 0.2 Nucleated Red Blood Cells % 0.0 Neutrophils # 15.7 H Lymphocytes # 0.3 L Monocytes # 0.0 L Eosinophils # 0.0 Basophils # 0.0 Nucleated Red Blood Cells # 0.0 Medications Medications Current Medications Acetaminophen/ Hydrocodone Bitart ([place] (5/325)) 1 tab Q4H PRN PO PAIN LEVEL 4 -7 Last administered on 11/19/16 12:45; Admin Dose 1 TAB; Start 11/15/16 at 12: 00 Ondansetron HCl (Zofran Inj) 4 mg Q4H PRN IV NAUSEA AND/OR VOMITING Last administered on 11/21/16 00:20; Admin Dose 4 MG; Start 11/15/16 at 12:00 Acetaminophen (Tylenol Tab) 650 mg Q4H PRN PO PAIN AND OR ELEVATED TEMP Last administered on 11/19/16 07:22; Admin Dose 650 MG; Start 11/15/16 at 12:00 Filgrastim (Neupogen) 480 mcg DAILY@17 SC Last administered on 11/20/16 18:37 ; Admin Dose 480 MCG; Start 11/19/16 at 17:00; Status Future hold Diphenhydramine HCl (Benadryl) 50 mg ONCE PRN IV ALLERGIC REACTION; Start at 11:00 Hydrocortisone (Solu-Cortef) 100 mg ONCE PRN IV ADVERSE RXN TO CHEMO; Start at 11:00 Docusate Sodium (Colace) 100 mg BID PRN PO CONSTIPATION Last administered on 10:20; Admin Dose 100 MG; Start 11/16/16 at 11:30 Amoxicillin/ Clavulanate Potassium (Augmentin) 875 mg BID PO Last administered on 11/21/16 08:53; Admin Dose 875 MG; Start 11/17/16 at 14:00 Bisacodyl (Dulcolax) 5 mg DAILY PRN PO CONSTIPATION Last administered on 18:50; Admin Dose 5 MG; Start 11/18/16 at 16:30 Polyethylene Glycol (Miralax) 17 gm DAILY PO Last administered on 11/21/16 08: 53; Admin Dose 17 GM; Start 11/19/16 at 09:00 Metoclopramide HCl (Reglan) 10 mg Q8H PRN IV Nausea; Start 11/19/16 at 11:00 Prochlorperazine 10 mg 10 mg Q8H PRN IM NAUSEA AND/OR VOMITING; Start 11/19/16 at 11:00 Potassium Chloride/Sodium Chloride (NS-KCl 20 Meq) 1,000 ml @ 80 mls/hr [id number] IV Last administered on 11/21/16 05:01; Admin Dose 80 MLS/HR; Start at 16:30 ELVIN TEIXEIRA November 21, 2016 16:46
[2016-11-21 20:41] VITALS: BP 101/61; RESP 20
[2016-11-22 05:40] LABS: ADD SCAN DIFF NO
[2016-11-22 05:54] LABS: ABNORMAL IP MESSAGE 1; BASOPHILS % 0.3 % (0.0-2.0); EOSINOPHILS % 0.1 % (0.0-7.0); HEMATOCRIT 26.1 % (37.0-47.0); HEMOGLOBIN 8.4 g/dl (12.0-16.0); LYMPHOCYTES # 0.4 10^3/ul (0.8-2.9); LYMPHOCYTES % 4.9 % (15.0-51.0); MEAN CORPUSCULAR HEMOGLOBIN 28.5 pg (29.0-33.0); MEAN CORPUSCULAR HGB CONC 32.2 g/dl (32.0-37.0); MEAN CORPUSCULAR VOLUME 88.5 fl (82.0-101.0); MEAN PLATELET VOLUME 9.4 fl (7.4-10.4); MONOCYTES % 0.6 % (0.0-11.0); NEUTROPHIL # 5.9 10^3/ul (1.6-7.5); NEUTROPHILS % 82.2 % (39.0-77.0); PLATELET COUNT 277 10^3/UL (140-415); RED BLOOD COUNT 2.95 10^6/ul (4.20-5.40); RED CELL DISTRIBUTION WIDTH 15.2 % (11.5-14.5); WHITE BLOOD COUNT 7.2 10^3/ul (4.8-10.8)
[2016-11-22] MEDS: NS + KCL 20 MEQ 1,000 ML IV SCH ×2 (06:10→18:51)
[2016-11-22 06:29] LABS: ALBUMIN 2.7 g/dl (3.3-4.9); POTASSIUM 3.7 mmol/L (3.5-5.1)
[2016-11-22 06:31] LABS: CREATININE 0.48 mg/dl (0.44-1.00)
[2016-11-22 06:32] LABS: ALBUMIN/GLOBULIN RATIO 1.03; BILIRUBIN,INDIRECT 0.3 mg/dl (0-1.1); BILIRUBIN,TOTAL 0.3 mg/dl (0.2-1.3); CALCIUM 8.1 mg/dl (8.4-10.2); TOTAL PROTEIN 5.3 g/dl (6.1-8.1)
[2016-11-22 08:02] VITALS: BP 104/69; RESP 18
[2016-11-22] MEDS: AMOXICILLIN/CLAV 875 MG TAB PO SCH ×2 (09:21→20:26)
[2016-11-22] MEDS: POLYETHYLENE GLYCOL 17 GM PACKET PO SCH (09:22)
--- NOTE | 2016-11-22 09:47 | CONS ---
Date/Time of Note Date/Time of Note DATE: 11/22/16 TIME: 09:46 Assessment/Plan Assessment/Plan Chief Complaint/Hosp Course The patient is a 56-year-old female with recent diagnosis of endometrial cancer on 09/17/2016 by endometrial biopsy. The patient was diagnosed with stage IV endometrial cancer. She underwent CYNDI/BSO and recto-sigmoid en-bloc with low anastomosis per Dr. Bueno on 10/11/16. She had extensive positive retroperitoneal lymph nodes removed but the confluence of disease makes her classified as millimeter residual disease. Path report showed metastatic carcinosarcoma. Per Dr. Kitchen of pathology, tumor is poorly differentiated though mostly sarcoma (90%) in the metastases. Patient received cycle 1 ifosfamide/taxol on 10/25/16. - Patient readmitted for cycle 2 Ifosfamide/taxol. Plan for 4 cycles of ifosfamide/taxol followd by 4 cycles of carbo/taxol per discussion with Dr. Bueno. Side effects including N/V, fatigue, myelosuppression, allergic reaction, confusion, hemorrhagic cystitis discussed with the patient. Patient started on chemotherapy 11/16/16, now completed. - Check daily UA while receiving ifosfamide. Urine culture showed > 100,000 enterococcus, would recommend empiric treatment given patient on chemotherapy. Patient started on augmentin per primary team, ken-sensitive. Patient asymptomatic. Monitor for hemorrhagic cystitis. - Avoid benzodiazpines or ambien while receiving ifosfamide. Monitor for [employer] symptoms or encephalopathy with ifosfamide. - Patient received decadron 20 mg PO 12 hours and 6 hours prior to paclitaxel - case management to obtain auth for neupogen 480 mcg for 10 days starting D4 and home health to administer neupogen - colace, miralax prn constipation - zofran prn, added compazine and reglan prn nausea/vomiting. Consider adding akynzeo for next cycle chemotherapy, will need non-formulary filled out. Patient to remain inpatient for now for symptoms control of nausea and vomiting and monitoring of blood counts pending case management authorization for neupogen Patient will need to be re-admitted approximately 12/06/16 for cycle 3 ifosfamide/ taxol Chemo regimen (completed) Ifosfamide 1600 mg/mg2 IV once per week D1-3 Paclitaxel 135 mg/m2 IV over 3 hours D1 [place] 2000 mg IV over 12 hours once per day (15 minutes before ifosfamide) D1-3 Decadron 20 mg PO 12 hours and 6 hours prior to paclitaxel Neupogen 480 mcg subcutaneous once per day starting D4 for 10 days. NOTE: Patient's counts will drop and dax 7-10 days out from chemotherapy so ok to continue neupogen despite rise in WBC/ANC. Problems: Consultation Date/Type/Reason Admit Date/Time November 15, 2016 at 10:12 Initial Consult Date 11/15/16 Type of Consultation: Oncology 24 HR Interval Summary Free Text/Dictation Patient doing well, no more nausea or vomiting. Exam/Review of Systems Vital Signs Vitals Vital Signs Date Time Temp Pulse Resp B/P Pulse Ox O2 Delivery O2 Flow Rate FiO2 11/22/16 08:02 98.3 96 18 104/69 98 11/19/16 01:05 Room Air Intake and Output 11/21/16 11/21/16 11/22/16 15:00 23:00 07:00 Intake Total 650 ml 1460 ml Balance 650 ml 1460 ml Exam Constitutional: alert, oriented Psych: no complaints Head: normocephalic Eyes: nl conjunctiva ENMT: nl external ears & nose Neck: non-tender, supple Respiratory: clear to auscultation, normal air movement Cardiovascular: nl pulses, regular rate and rhythm Gastrointestinal: soft, incision c/d/i Musculoskeletal: no edema, nl gait and stance Results Result Diagram: 11/22/16 0455 11/22/16 0455 Results 24 hrs Laboratory Tests Test 11/22/16 04:55 White Blood Count 7.2 # Red Blood Count 2.95 L Hemoglobin 8.4 L Hematocrit 26.1 L Mean Corpuscular Volume 88.5 Mean Corpuscular Hemoglobin 28.5 L Mean Corpuscular Hemoglobin Concent 32.2 Red Cell Distribution Width 15.2 H Platelet Count 277 Mean Platelet Volume 9.4 Neutrophils % 82.2 H Lymphocytes % 4.9 L Monocytes % 0.6 Eosinophils % 0.1 Basophils % 0.3 Nucleated Red Blood Cells % 0.0 Neutrophils # 5.9 Lymphocytes # 0.4 L Monocytes # 0.0 L Eosinophils # 0.0 Basophils # 0.0 Nucleated Red Blood Cells # 0.0 Sodium Level 137 Potassium Level 3.7 Chloride Level 106 Carbon Dioxide Level 26 Anion Gap 9 Blood Urea Nitrogen 6 L Creatinine 0.48 Glucose Level 98 Calcium Level 8.1 L Total Bilirubin 0.3 Direct Bilirubin 0.00 Indirect Bilirubin 0.3 Aspartate Amino Transf (AST/SGOT) 29 Alanine Aminotransferase (ALT/SGPT) 40 Alkaline Phosphatase 60 Total Protein 5.3 L Albumin 2.7 L Globulin 2.60 Albumin/Globulin Ratio 1.03 Medications Medications Current Medications Acetaminophen/ Hydrocodone Bitart ([place] (5/325)) 1 tab Q4H PRN PO PAIN LEVEL 4 -7 Last administered on 11/19/16 12:45; Admin Dose 1 TAB; Start 11/15/16 at 12: 00 Ondansetron HCl (Zofran Inj) 4 mg Q4H PRN IV NAUSEA AND/OR VOMITING Last administered on 11/21/16 00:20; Admin Dose 4 MG; Start 11/15/16 at 12:00 Acetaminophen (Tylenol Tab) 650 mg Q4H PRN PO PAIN AND OR ELEVATED TEMP Last administered on 11/19/16 07:22; Admin Dose 650 MG; Start 11/15/16 at 12:00 Filgrastim (Neupogen) 480 mcg DAILY@17 SC Last administered on 11/20/16 18:37 ; Admin Dose 480 MCG; Start 11/19/16 at 17:00; Status Future Hold Diphenhydramine HCl (Benadryl) 50 mg ONCE PRN IV ALLERGIC REACTION; Start at 11:00 Hydrocortisone (Solu-Cortef) 100 mg ONCE PRN IV ADVERSE RXN TO CHEMO; Start at 11:00 Docusate Sodium (Colace) 100 mg BID PRN PO CONSTIPATION Last administered on 10:20; Admin Dose 100 MG; Start 11/16/16 at 11:30 Amoxicillin/ Clavulanate Potassium (Augmentin) 875 mg BID PO Last administered on 11/22/16 09:21; Admin Dose 875 MG; Start 11/17/16 at 14:00 Bisacodyl (Dulcolax) 5 mg DAILY PRN PO CONSTIPATION Last administered on 18:50; Admin Dose 5 MG; Start 11/18/16 at 16:30 Polyethylene Glycol (Miralax) 17 gm DAILY PO Last administered on 11/22/16 09: 22; Admin Dose 17 GM; Start 11/19/16 at 09:00 Metoclopramide HCl (Reglan) 10 mg Q8H PRN IV Nausea; Start 11/19/16 at 11:00 Prochlorperazine 10 mg 10 mg Q8H PRN IM NAUSEA AND/OR VOMITING; Start 11/19/16 at 11:00 Potassium Chloride/Sodium Chloride (NS-KCl 20 Meq) 1,000 ml @ 80 mls/hr [id number] IV Last administered on 11/22/16 06:10; Admin Dose 80 MLS/HR; Start at 16:30 TOLINDA MD November 22, 2016 09:47
--- NOTE | 2016-11-22 16:31 | PN ---
Date/Time of Note Date/Time of Note DATE: 11/22/16 TIME: 16:30 Assessment/Plan Lines/Catheters IV Catheter Type (from [facility]): PICC Line Urinary Cath still in place: No Assessment/Plan Assessment/Plan - Metastatic carcinosarcoma status post total abdominal hysterectomy and bilateral salpingo-oophorectomy, rectosigmoid en bloc with low anastomosis by Dr. Bueno on 10/11. Status post 1 cycle of chemotherapy. The patient is being admitted for second cycle of chemotherapy. Dr. Hoang is following in oncology consultation. - Gastritis. Continue Protonix. Further recommendations based on clinical course. Plan of care discussed with Dr. Richardson. Subjective 24 Hr Interval Summary Constitutional: improved, requiring IVF Exam/Review of Systems Vital Signs Vitals Vital Signs Date Time Temp Pulse Resp B/P Pulse Ox O2 Delivery O2 Flow Rate FiO2 11/22/16 08:02 98.3 96 18 104/69 98 11/19/16 01:05 Room Air Intake and Output 11/21/16 11/21/16 11/22/16 15:00 23:00 07:00 Intake Total 650 ml 1460 ml Balance 650 ml 1460 ml Exam Constitutional: alert, oriented Eyes: nl sclera Neck: non-tender Respiratory: clear to auscultation, normal air movement Cardiovascular: nl pulses, regular rate and rhythm Gastrointestinal: non-tender, soft Musculoskeletal: nl extremities to inspection Extremities: normal pulses Neurological: nl mental status, nl speech Skin: other Lymph: nontender Results Result Diagram: 11/22/16 0455 11/22/16 0455 Results 24 hrs Laboratory Tests Test 11/22/16 04:55 White Blood Count 7.2 # Red Blood Count 2.95 L Hemoglobin 8.4 L Hematocrit 26.1 L Mean Corpuscular Volume 88.5 Mean Corpuscular Hemoglobin 28.5 L Mean Corpuscular Hemoglobin Concent 32.2 Red Cell Distribution Width 15.2 H Platelet Count 277 Mean Platelet Volume 9.4 Neutrophils % 82.2 H Lymphocytes % 4.9 L Monocytes % 0.6 Eosinophils % 0.1 Basophils % 0.3 Nucleated Red Blood Cells % 0.0 Neutrophils # 5.9 Lymphocytes # 0.4 L Monocytes # 0.0 L Eosinophils # 0.0 Basophils # 0.0 Nucleated Red Blood Cells # 0.0 Sodium Level 137 Potassium Level 3.7 Chloride Level 106 Carbon Dioxide Level 26 Anion Gap 9 Blood Urea Nitrogen 6 L Creatinine 0.48 Glucose Level 98 Calcium Level 8.1 L Total Bilirubin 0.3 Direct Bilirubin 0.00 Indirect Bilirubin 0.3 Aspartate Amino Transf (AST/SGOT) 29 Alanine Aminotransferase (ALT/SGPT) 40 Alkaline Phosphatase 60 Total Protein 5.3 L Albumin 2.7 L Globulin 2.60 Albumin/Globulin Ratio 1.03 Medications Medications Current Medications Acetaminophen/ Hydrocodone Bitart ([place] (5/325)) 1 tab Q4H PRN PO PAIN LEVEL 4 -7 Last administered on 11/19/16 12:45; Admin Dose 1 TAB; Start 11/15/16 at 12: 00 Ondansetron HCl (Zofran Inj) 4 mg Q4H PRN IV NAUSEA AND/OR VOMITING Last administered on 11/21/16 00:20; Admin Dose 4 MG; Start 11/15/16 at 12:00 Acetaminophen (Tylenol Tab) 650 mg Q4H PRN PO PAIN AND OR ELEVATED TEMP Last administered on 11/19/16 07:22; Admin Dose 650 MG; Start 11/15/16 at 12:00 Diphenhydramine HCl (Benadryl) 50 mg ONCE PRN IV ALLERGIC REACTION; Start at 11:00 Hydrocortisone (Solu-Cortef) 100 mg ONCE PRN IV ADVERSE RXN TO CHEMO; Start at 11:00 Docusate Sodium (Colace) 100 mg BID PRN PO CONSTIPATION Last administered on 10:20; Admin Dose 100 MG; Start 11/16/16 at 11:30 Amoxicillin/ Clavulanate Potassium (Augmentin) 875 mg BID PO Last administered on 11/22/16 09:21; Admin Dose 875 MG; Start 11/17/16 at 14:00 Bisacodyl (Dulcolax) 5 mg DAILY PRN PO CONSTIPATION Last administered on 18:50; Admin Dose 5 MG; Start 11/18/16 at 16:30 Polyethylene Glycol (Miralax) 17 gm DAILY PO Last administered on 11/22/16 09: 22; Admin Dose 17 GM; Start 11/19/16 at 09:00 Metoclopramide HCl (Reglan) 10 mg Q8H PRN IV Nausea; Start 11/19/16 at 11:00 Prochlorperazine 10 mg 10 mg Q8H PRN IM NAUSEA AND/OR VOMITING; Start 11/19/16 at 11:00 Potassium Chloride/Sodium Chloride (NS-KCl 20 Meq) 1,000 ml @ 80 mls/hr [id number] IV Last administered on 11/22/16t 06:10; Admin Dose 80 MLS/HR; Start at 16:30 Filgrastim (Neupogen) 480 mcg DAILY@17 SC ; Start 11/22/16 at 17:00; Stop at 17:01 LATRICIA GABRIEL November 22, 2016 16:31
[2016-11-22] MEDS: FILGRASTIM 480 MCG INJ SC SCH (17:48)
[2016-11-22 19:44] VITALS: BP 105/57; RESP 19
[2016-11-23 04:49] LABS: ADD SCAN DIFF NO
[2016-11-23 04:57] LABS: ABNORMAL IP MESSAGE 1; HEMATOCRIT 24.1 % (37.0-47.0); HEMOGLOBIN 7.7 g/dl (12.0-16.0); MEAN CORPUSCULAR HEMOGLOBIN 28.4 pg (29.0-33.0); MEAN CORPUSCULAR VOLUME 88.9 fl (82.0-101.0); MEAN PLATELET VOLUME 9.5 fl (7.4-10.4); PLATELET COUNT 253 10^3/UL (140-415); RED BLOOD COUNT 2.71 10^6/ul (4.20-5.40); RED CELL DISTRIBUTION WIDTH 15.1 % (11.5-14.5); WHITE BLOOD COUNT 2.5 10^3/ul (4.8-10.8)
[2016-11-23 05:15] LABS: ALBUMIN 2.6 g/dl (3.3-4.9); ALBUMIN/GLOBULIN RATIO 1.04; CALCIUM 7.9 mg/dl (8.4-10.2); CREATININE 0.45 mg/dl (0.44-1.00); POTASSIUM 3.7 mmol/L (3.5-5.1); TOTAL PROTEIN 5.1 g/dl (6.1-8.1)
[2016-11-23] MEDS: NS + KCL 20 MEQ 1,000 ML IV SCH ×2 (06:12→19:36)
[2016-11-23 08:03] VITALS: BP 131/71; RESP 18
[2016-11-23 08:18] LABS: EOSINOPHILS # 0.1 10^3/ul (0.0-0.5); LYMPHOCYTES # 0.2 10^3/ul (0.8-2.9); NEUTROPHIL # 2.2 10^3/ul (1.6-7.5)
[2016-11-23] MEDS: AMOXICILLIN/CLAV 875 MG TAB PO SCH ×2 (08:44→21:03)
[2016-11-23] MEDS: POLYETHYLENE GLYCOL 17 GM PACKET PO SCH (08:44)
--- NOTE | 2016-11-23 10:29 | CONS ---
Date/Time of Note Date/Time of Note DATE: 11/23/16 TIME: 10:26 Assessment/Plan Assessment/Plan Chief Complaint/Hosp Course The patient is a 56-year-old female with recent diagnosis of endometrial cancer on 09/17/2016 by endometrial biopsy. The patient was diagnosed with stage IV endometrial cancer. She underwent CYNDI/BSO and recto-sigmoid en-bloc with low anastomosis per Dr. Bueno on 10/11/16. She had extensive positive retroperitoneal lymph nodes removed but the confluence of disease makes her classified as millimeter residual disease. Path report showed metastatic carcinosarcoma. Per Dr. Kitchen of pathology, tumor is poorly differentiated though mostly sarcoma (90%) in the metastases. Patient received cycle 1 ifosfamide/taxol on 10/25/16. - Patient readmitted for cycle 2 Ifosfamide/taxol. Plan for 4 cycles of ifosfamide/taxol followd by 4 cycles of carbo/taxol per discussion with Dr. Bueno. Side effects including N/V, fatigue, myelosuppression, allergic reaction, confusion, hemorrhagic cystitis discussed with the patient. Patient started on chemotherapy 11/16/16, now completed. - Check daily UA while receiving ifosfamide. Urine culture showed > 100,000 enterococcus, would recommend empiric treatment given patient on chemotherapy. Patient started on augmentin per primary team, ken-sensitive. Patient asymptomatic. Monitor for hemorrhagic cystitis. - Avoid benzodiazpines or ambien while receiving ifosfamide. Monitor for [employer] symptoms or encephalopathy with ifosfamide. - Patient received decadron 20 mg PO 12 hours and 6 hours prior to paclitaxel - patient continues on neupogen 480 mcg daily as counts are dropping. pending auth for neupogen to be administered and billed through my office - Hgb today 7.7, will transfuse 2 units pRBCs and arrange for transfusion as needed as outpatient if needed - colace, miralax prn constipation - zofran prn, added compazine and reglan prn nausea/vomiting. Consider adding akynzeo for next cycle chemotherapy, non-formulary filled out. Patient to remain inpatient for now for monitoring of blood counts pending case management authorization for neupogen Patient will need to be re-admitted approximately 12/06/16 for cycle 3 ifosfamide/ taxol Chemo regimen (completed) Ifosfamide 1600 mg/mg2 IV once per week D1-3 Paclitaxel 135 mg/m2 IV over 3 hours D1 [place] 2000 mg IV over 12 hours once per day (15 minutes before ifosfamide) D1-3 Decadron 20 mg PO 12 hours and 6 hours prior to paclitaxel Neupogen 480 mcg subcutaneous once per day starting D4 for 10 days. NOTE: Patient's counts will drop and dax 7-10 days out from chemotherapy so ok to continue neupogen despite rise in WBC/ANC. Problems: Consultation Date/Type/Reason Admit Date/Time November 15, 2016 at 10:12 Initial Consult Date 11/15/16 Type of Consultation: Oncology 24 HR Interval Summary Free Text/Dictation Patient denies any nausea and vomiting, feels better. Exam/Review of Systems Vital Signs Vitals Vital Signs Date Time Temp Pulse Resp B/P Pulse Ox O2 Delivery O2 Flow Rate FiO2 11/23/16 08:03 98.1 78 18 131/71 98 Intake and Output 11/22/16 11/22/16 11/23/16 15:00 23:00 07:00 Intake Total 1640 ml 1850 ml Balance 1640 ml 1850 ml Exam Constitutional: alert, oriented Psych: no complaints Head: normocephalic Eyes: nl conjunctiva ENMT: nl external ears & nose Neck: non-tender, supple Respiratory: clear to auscultation, normal air movement Cardiovascular: nl pulses, regular rate and rhythm Gastrointestinal: soft, incision c/d/i Musculoskeletal: no edema, nl gait and stance Results Result Diagram: 11/23/16 0419 11/23/16 0419 Results 24 hrs Laboratory Tests Test 11/23/16 04:19 White Blood Count 2.5 #L Red Blood Count 2.71 L Hemoglobin 7.7 L Hematocrit 24.1 L Mean Corpuscular Volume 88.9 Mean Corpuscular Hemoglobin 28.4 L Mean Corpuscular Hemoglobin Concent 32.0 Red Cell Distribution Width 15.1 H Platelet Count 253 Mean Platelet Volume 9.5 Neutrophils % 89.0 H Lymphocytes % 8.0 L Monocytes % Eosinophils % 2.0 Basophils % 1.0 Neutrophils # 2.2 Lymphocytes # 0.2 L Monocytes # Eosinophils # 0.1 Basophils # 0.0 Sodium Level 136 Potassium Level 3.7 Chloride Level 112 H Carbon Dioxide Level 26 Anion Gap 2 L Blood Urea Nitrogen 5 L Creatinine 0.45 Glucose Level 91 Calcium Level 7.9 L Total Bilirubin 0.0 L Direct Bilirubin 0.00 Indirect Bilirubin 0.0 Aspartate Amino Transf (AST/SGOT) 25 Alanine Aminotransferase (ALT/SGPT) 41 Alkaline Phosphatase 53 Total Protein 5.1 L Albumin 2.6 L Globulin 2.50 Albumin/Globulin Ratio 1.04 Medications Medications Current Medications Acetaminophen/ Hydrocodone Bitart ([place] (5/325)) 1 tab Q4H PRN PO PAIN LEVEL 4 -7 Last administered on 11/19/16 12:45; Admin Dose 1 TAB; Start 11/15/16 at 12: 00 Ondansetron HCl (Zofran Inj) 4 mg Q4H PRN IV NAUSEA AND/OR VOMITING Last administered on 11/21/16 00:20; Admin Dose 4 MG; Start 11/15/16 at 12:00 Acetaminophen (Tylenol Tab) 650 mg Q4H PRN PO PAIN AND OR ELEVATED TEMP Last administered on 11/19/16 07:22; Admin Dose 650 MG; Start 11/15/16 at 12:00 Diphenhydramine HCl (Benadryl) 50 mg ONCE PRN IV ALLERGIC REACTION; Start at 11:00 Hydrocortisone (Solu-Cortef) 100 mg ONCE PRN IV ADVERSE RXN TO CHEMO; Start at 11:00 Docusate Sodium (Colace) 100 mg BID PRN PO CONSTIPATION Last administered on 10:20; Admin Dose 100 MG; Start 11/16/16 at 11:30 Amoxicillin/ Clavulanate Potassium (Augmentin) 875 mg BID PO Last administered on 11/23/16 08:44; Admin Dose 875 MG; Start 11/17/16 at 14:00 Bisacodyl (Dulcolax) 5 mg DAILY PRN PO CONSTIPATION Last administered on 18:50; Admin Dose 5 MG; Start 11/18/16 at 16:30 Polyethylene Glycol (Miralax) 17 gm DAILY PO Last administered on 11/23/16 08: 44; Admin Dose 17 GM; Start 11/19/16 at 09:00 Metoclopramide HCl (Reglan) 10 mg Q8H PRN IV Nausea; Start 11/19/16 at 11:00 Prochlorperazine 10 mg 10 mg Q8H PRN IM NAUSEA AND/OR VOMITING; Start 11/19/16 at 11:00 Potassium Chloride/Sodium Chloride (NS-KCl 20 Meq) 1,000 ml @ 80 mls/hr [id number] IV Last administered on 11/23/16 06:12; Admin Dose 80 MLS/HR; Start at 16:30 Filgrastim (Neupogen) 480 mcg DAILY@17 SC Last administered on 11/22/16 17:48 ; Admin Dose 480 MCG; Start 11/22/16 at 17:00; Stop 11/28/16 at 17:01 TOLINDA MD November 23, 2016 10:29
--- NOTE | 2016-11-23 12:38 | PN ---
Date/Time of Note Date/Time of Note DATE: 11/23/16 TIME: 12:37 Assessment/Plan VTE Prophylaxis VTE Prophylaxis Intervention: SCD's Lines/Catheters IV [facility] P[facility] Line Central line still needed: Yes Urinary Cath still in place: No Assessment/Plan Chief Complaint/Hosp Course Hemoglobin is 7.7 today, pending blood transfusion, patient denies any nausea vomiting, wants to go home. Pending authorization for outpatient Epogen. Assessment and plan: - Metastatic carcinosarcoma status post total abdominal hysterectomy and bilateral salpingo-oophorectomy, rectosigmoid en bloc with low anastomosis by Dr. Bueno on 10/11. Status post 1 cycle of chemotherapy. The patient is being admitted for second cycle of chemotherapy. Dr. Hoang is following in oncology consultation. - Gastritis. Continue Protonix. Further recommendations based on clinical course. Plan of care discussed with Dr. Richardson. Problems: Exam/Review of Systems Vital Signs Vitals Vital Signs Date Time Temp Pulse Resp B/P Pulse Ox O2 Delivery O2 Flow Rate FiO2 11/23/16 08:03 98.1 78 18 131/71 98 Intake and Output 11/22/16 11/22/16 11/23/16 15:00 23:00 07:00 Intake Total 1640 ml 1850 ml Balance 1640 ml 1850 ml Exam Constitutional: alert, oriented Head: atraumatic, normocephalic Eyes: nl conjunctiva ENMT: nl external ears & nose Neck: non-tender, supple Respiratory: clear to auscultation Cardiovascular: nl pulses, regular rate and rhythm Gastrointestinal: non-tender, other (Status post surgery with intact surgical incision), soft Musculoskeletal: nl extremities to inspection Extremities: normal pulses Neurological: GAS JOCKEY II-XII intact Results Result Diagram: 11/23/16 0419 11/23/16 0419 Results 24 hrs Laboratory Tests Test 11/23/16 04:19 White Blood Count 2.5 #L Red Blood Count 2.71 L Hemoglobin 7.7 L Hematocrit 24.1 L Mean Corpuscular Volume 88.9 Mean Corpuscular Hemoglobin 28.4 L Mean Corpuscular Hemoglobin Concent 32.0 Red Cell Distribution Width 15.1 H Platelet Count 253 Mean Platelet Volume 9.5 Neutrophils % 89.0 H Lymphocytes % 8.0 L Monocytes % Eosinophils % 2.0 Basophils % 1.0 Neutrophils # 2.2 Lymphocytes # 0.2 L Monocytes # Eosinophils # 0.1 Basophils # 0.0 Sodium Level 136 Potassium Level 3.7 Chloride Level 112 H Carbon Dioxide Level 26 Anion Gap 2 L Blood Urea Nitrogen 5 L Creatinine 0.45 Glucose Level 91 Calcium Level 7.9 L Total Bilirubin 0.0 L Direct Bilirubin 0.00 Indirect Bilirubin 0.0 Aspartate Amino Transf (AST/SGOT) 25 Alanine Aminotransferase (ALT/SGPT) 41 Alkaline Phosphatase 53 Total Protein 5.1 L Albumin 2.6 L Globulin 2.50 Albumin/Globulin Ratio 1.04 Medications Medications Current Medications Acetaminophen/ Hydrocodone Bitart ([place] (5/325)) 1 tab Q4H PRN PO PAIN LEVEL 4 -7 Last administered on 11/19/16 12:45; Admin Dose 1 TAB; Start 11/15/16 at 12: 00 Ondansetron HCl (Zofran Inj) 4 mg Q4H PRN IV NAUSEA AND/OR VOMITING Last administered on 11/21/16 00:20; Admin Dose 4 MG; Start 11/15/16 at 12:00 Acetaminophen (Tylenol Tab) 650 mg Q4H PRN PO PAIN AND OR ELEVATED TEMP Last administered on 11/19/16 07:22; Admin Dose 650 MG; Start 11/15/16 at 12:00 Diphenhydramine HCl (Benadryl) 50 mg ONCE PRN IV ALLERGIC REACTION; Start at 11:00 Hydrocortisone (Solu-Cortef) 100 mg ONCE PRN IV ADVERSE RXN TO CHEMO; Start at 11:00 Docusate Sodium (Colace) 100 mg BID PRN PO CONSTIPATION Last administered on 10:20; Admin Dose 100 MG; Start 11/16/16 at 11:30 Amoxicillin/ Clavulanate Potassium (Augmentin) 875 mg BID PO Last administered on 11/23/16 08:44; Admin Dose 875 MG; Start 11/17/16 at 14:00 Bisacodyl (Dulcolax) 5 mg DAILY PRN PO CONSTIPATION Last administered on 18:50; Admin Dose 5 MG; Start 11/18/16 at 16:30 Polyethylene Glycol (Miralax) 17 gm DAILY PO Last administered on 11/23/16 08: 44; Admin Dose 17 GM; Start 11/19/16 at 09:00 Metoclopramide HCl (Reglan) 10 mg Q8H PRN IV Nausea; Start 11/19/16 at 11:00 Prochlorperazine 10 mg 10 mg Q8H PRN IM NAUSEA AND/OR VOMITING; Start 11/19/16 at 11:00 Potassium Chloride/Sodium Chloride (NS-KCl 20 Meq) 1,000 ml @ 80 mls/hr [id number] IV Last administered on 11/23/16 06:12; Admin Dose 80 MLS/HR; Start at 16:30 Filgrastim (Neupogen) 480 mcg DAILY@17 SC Last administered on 11/22/16 17:48 ; Admin Dose 480 MCG; Start 11/22/16 at 17:00; Stop 11/28/16 at 17:01 ELVIN TEIXEIRA November 23, 2016 12:38
[2016-11-23] MEDS: FILGRASTIM 480 MCG INJ SC SCH (17:22)
[2016-11-23 20:11] VITALS: BP 117/71; PULSE 90; RESP 18
[2016-11-24 05:19] LABS: ADD SCAN DIFF NO
[2016-11-24 05:30] LABS: ABNORMAL IP MESSAGE 1; HEMATOCRIT 30.7 % (37.0-47.0); HEMOGLOBIN 10.3 g/dl (12.0-16.0); MEAN CORPUSCULAR HGB CONC 33.6 g/dl (32.0-37.0); MEAN CORPUSCULAR VOLUME 86.5 fl (82.0-101.0); MEAN PLATELET VOLUME 9.5 fl (7.4-10.4); PLATELET COUNT 255 10^3/UL (140-415); RED BLOOD COUNT 3.55 10^6/ul (4.20-5.40); RED CELL DISTRIBUTION WIDTH 14.7 % (11.5-14.5); WHITE BLOOD COUNT 0.9 10^3/ul (4.8-10.8)
[2016-11-24] MEDS: HYDROCODONE/APAP (5/325) TAB PO PRN (05:39)
[2016-11-24 05:53] LABS: CALCIUM 8.4 mg/dl (8.4-10.2); CREATININE 0.52 mg/dl (0.44-1.00); POTASSIUM 3.8 mmol/L (3.5-5.1)
[2016-11-24] MEDS: NS + KCL 20 MEQ 1,000 ML IV SCH ×2 (08:00→20:30)
[2016-11-24 08:26] VITALS: BP 131/80; RESP 18
[2016-11-24] MEDS: AMOXICILLIN/CLAV 875 MG TAB PO SCH ×2 (08:59→20:49)
[2016-11-24] MEDS: POLYETHYLENE GLYCOL 17 GM PACKET PO SCH (09:00)
[2016-11-24 09:40] LABS: LYMPHOCYTES # 0.4 10^3/ul (0.8-2.9); MONOCYTE # 0.1 10^3/ul (0.3-0.9); NEUTROPHIL # 0.4 10^3/ul (1.6-7.5)
--- NOTE | 2016-11-24 12:41 | PN ---
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 Bueno on 10/11. Status post 1 cycle of chemotherapy. The patient is being admitted for second cycle of chemotherapy. Dr. Hoang is following in oncology consultation. - Gastritis. Continue Protonix. Problems: Subjective 24 Hr Interval Summary Free Text/Dictation Patient denies any pain Exam/Review of Systems Vital Signs Vitals Vital Signs Date Time Temp Pulse Resp B/P Pulse Ox O2 Delivery O2 Flow Rate FiO2 11/24/16 08:26 98.2 86 18 131/80 94 11/23/16 20:11 Room Air Intake and Output 11/23/16 11/23/16 11/24/16 15:00 23:00 07:00 Intake Total 720 ml 1150 ml 1760 ml Output Total 1300 ml Balance 720 ml 1150 ml 460 ml Exam Constitutional: well developed Head: atraumatic, normocephalic Neck: supple Respiratory: clear to auscultation Cardiovascular: regular rate and rhythm Gastrointestinal: non-tender, soft Extremities: normal pulses Results Result Diagram: 11/24/16 0440 11/24/16 0440 Results 24 hrs Laboratory Tests Test 11/24/16 04:40 White Blood Count 0.9 #L Red Blood Count 3.55 #L Hemoglobin 10.3 #L Hematocrit 30.7 #L Mean Corpuscular Volume 86.5 Mean Corpuscular Hemoglobin 29.0 Mean Corpuscular Hemoglobin Concent 33.6 Red Cell Distribution Width 14.7 H Platelet Count 255 Mean Platelet Volume 9.5 Neutrophils % 44.0 Band Neutrophils % 4.0 Lymphocytes % 40.0 Monocytes % 9.0 Eosinophils % 3.0 Basophils % Neutrophils # 0.4 L Lymphocytes # 0.4 L Monocytes # 0.1 L Eosinophils # 0.0 Basophils # Sodium Level 137 Potassium Level 3.8 Chloride Level 110 Carbon Dioxide Level 25 Anion Gap 6 L Blood Urea Nitrogen 4 L Creatinine 0.52 Glucose Level 82 Calcium Level 8.4 Medications Medications Current Medications Acetaminophen/ Hydrocodone Bitart ([place] (5/325)) 1 tab Q4H PRN PO PAIN LEVEL 4 -7 Last administered on 11/24/16 05:39; Admin Dose 1 TAB; Start 11/15/16 at 12: 00 Ondansetron HCl (Zofran Inj) 4 mg Q4H PRN IV NAUSEA AND/OR VOMITING Last administered on 11/21/16 00:20; Admin Dose 4 MG; Start 11/15/16 at 12:00 Acetaminophen (Tylenol Tab) 650 mg Q4H PRN PO PAIN AND OR ELEVATED TEMP Last administered on 11/19/16 07:22; Admin Dose 650 MG; Start 11/15/16 at 12:00 Diphenhydramine HCl (Benadryl) 50 mg ONCE PRN IV ALLERGIC REACTION Last administered on 11/23/16 19:00; Admin Dose 50 MG; Start 11/16/16 at 11:00 Hydrocortisone (Solu-Cortef) 100 mg ONCE PRN IV ADVERSE RXN TO CHEMO; Start at 11:00 Docusate Sodium (Colace) 100 mg BID PRN PO CONSTIPATION Last administered on 10:20; Admin Dose 100 MG; Start 11/16/16 at 11:30 Amoxicillin/ Clavulanate Potassium (Augmentin) 875 mg BID PO Last administered on 11/24/16 08:59; Admin Dose 875 MG; Start 11/17/16 at 14:00 Bisacodyl (Dulcolax) 5 mg DAILY PRN PO CONSTIPATION Last administered on 18:50; Admin Dose 5 MG; Start 11/18/16 at 16:30 Polyethylene Glycol (Miralax) 17 gm DAILY PO Last administered on 11/23/16 08: 44; Admin Dose 17 GM; Start 11/19/16 at 09:00 Metoclopramide HCl (Reglan) 10 mg Q8H PRN IV Nausea; Start 11/19/16 at 11:00 Prochlorperazine 10 mg 10 mg Q8H PRN IM NAUSEA AND/OR VOMITING; Start 11/19/16 at 11:00 Potassium Chloride/Sodium Chloride (NS-KCl 20 Meq) 1,000 ml @ 80 mls/hr [id number] IV Last administered on 11/23/16 19:36; Admin Dose 80 MLS/HR; Start at 16:30 Filgrastim (Neupogen) 480 mcg DAILY@17 SC Last administered on 11/23/16 17:22 ; Admin Dose 480 MCG; Start 11/22/16 at 17:00; Stop 11/28/16 at 17:01 MARCO XAVIER November 24, 2016 12:41
--- NOTE | 2016-11-24 13:12 | CONS ---
Date/Time of Note Date/Time of Note DATE: 11/24/16 TIME: 13:09 Assessment/Plan Assessment/Plan Chief Complaint/Hosp Course The patient is a 56-year-old female with recent diagnosis of endometrial cancer on 09/17/2016 by endometrial biopsy. The patient was diagnosed with stage IV endometrial cancer. She underwent CYNDI/BSO and recto-sigmoid en-bloc with low anastomosis per Dr. Bueno on 10/11/16. She had extensive positive retroperitoneal lymph nodes removed but the confluence of disease makes her classified as millimeter residual disease. Path report showed metastatic carcinosarcoma. Per Dr. Kitchen of pathology, tumor is poorly differentiated though mostly sarcoma (90%) in the metastases. Patient received cycle 2 ifosfamide/taxol on 11.16.16 - Patient readmitted for cycle 2 Ifosfamide/taxol. Plan for 4 cycles of ifosfamide/taxol followd by 4 cycles of carbo/taxol per discussion with Dr. Bueno. Side effects including N/V, fatigue, myelosuppression, allergic reaction, confusion, hemorrhagic cystitis discussed with the patient. - Check daily UA while receiving ifosfamide. Urine culture showed > 100,000 enterococcus, would recommend empiric treatment given patient on chemotherapy. Patient started on augmentin per primary team, ken-sensitive. Patient asymptomatic. Monitor for hemorrhagic cystitis. - Avoid benzodiazpines or ambien while receiving ifosfamide. Monitor for CARDIOGRAPHER symptoms or encephalopathy with ifosfamide. - Patient received decadron 20 mg PO 12 hours and 6 hours prior to paclitaxel - patient continues on neupogen 480 mcg daily as counts are dropping. pending auth for neupogen to be administered and billed through my office - s/p 2 units of PRBCs. Hg now > 10 - colace, miralax prn constipation - zofran prn, added compazine and reglan prn nausea/vomiting. Consider adding akynzeo for next cycle chemotherapy, non-formulary filled out. Patient to remain inpatient for now for monitoring of blood counts pending case management authorization for neupogen Patient will need to be re-admitted approximately 12/06/16 for cycle 3 ifosfamide/ taxol Chemo regimen (completed) Ifosfamide 1600 mg/mg2 IV once per week D1-3 Paclitaxel 135 mg/m2 IV over 3 hours D1 [place] 2000 mg IV over 12 hours once per day (15 minutes before ifosfamide) D1-3 Decadron 20 mg PO 12 hours and 6 hours prior to paclitaxel Neupogen 480 mcg subcutaneous once per day starting D4 for 10 days. NOTE: Patient's counts will drop and dax 7-10 days out from chemotherapy so ok to continue neupogen despite rise in WBC/ANC. Problems: Consultation Date/Type/Reason Admit Date/Time November 15, 2016 at 10:12 Initial Consult Date 11/15/16 Type of Consultation: Oncology 24 HR Interval Summary Free Text/Dictation no acute overnight events. no fevers Exam/Review of Systems Vital Signs Vitals Vital Signs Date Time Temp Pulse Resp B/P Pulse Ox O2 Delivery O2 Flow Rate FiO2 11/24/16 08:26 98.2 86 18 131/80 94 11/23/16 20:11 Room Air Intake and Output 11/23/16 11/23/16 11/24/16 15:00 23:00 07:00 Intake Total 720 ml 1150 ml 1760 ml Output Total 1300 ml Balance 720 ml 1150 ml 460 ml Exam Constitutional: alert, oriented Psych: nl mood/affect, no complaints Head: normocephalic ENMT: nl external ears & nose Neck: non-tender, supple Respiratory: clear to auscultation, normal air movement Cardiovascular: regular rate and rhythm Gastrointestinal: soft Musculoskeletal: nl extremities to inspection Extremities: normal pulses Results Result Diagram: 11/24/16 0440 11/24/16 0440 Results 24 hrs Laboratory Tests Test 11/24/16 04:40 White Blood Count 0.9 #L Red Blood Count 3.55 #L Hemoglobin 10.3 #L Hematocrit 30.7 #L Mean Corpuscular Volume 86.5 Mean Corpuscular Hemoglobin 29.0 Mean Corpuscular Hemoglobin Concent 33.6 Red Cell Distribution Width 14.7 H Platelet Count 255 Mean Platelet Volume 9.5 Neutrophils % 44.0 Band Neutrophils % 4.0 Lymphocytes % 40.0 Monocytes % 9.0 Eosinophils % 3.0 Basophils % Neutrophils # 0.4 L Lymphocytes # 0.4 L Monocytes # 0.1 L Eosinophils # 0.0 Basophils # Sodium Level 137 Potassium Level 3.8 Chloride Level 110 Carbon Dioxide Level 25 Anion Gap 6 L Blood Urea Nitrogen 4 L Creatinine 0.52 Glucose Level 82 Calcium Level 8.4 Medications Medications Current Medications Acetaminophen/ Hydrocodone Bitart ([place] (5/325)) 1 tab Q4H PRN PO PAIN LEVEL 4 -7 Last administered on 11/24/16 05:39; Admin Dose 1 TAB; Start 11/15/16 at 12: 00 Ondansetron HCl (Zofran Inj) 4 mg Q4H PRN IV NAUSEA AND/OR VOMITING Last administered on 11/21/16 00:20; Admin Dose 4 MG; Start 11/15/16 at 12:00 Acetaminophen (Tylenol Tab) 650 mg Q4H PRN PO PAIN AND OR ELEVATED TEMP Last administered on 11/19/16 07:22; Admin Dose 650 MG; Start 11/15/16 at 12:00 Diphenhydramine HCl (Benadryl) 50 mg ONCE PRN IV ALLERGIC REACTION Last administered on 11/23/16 19:00; Admin Dose 50 MG; Start 11/16/16 at 11:00 Hydrocortisone (Solu-Cortef) 100 mg ONCE PRN IV ADVERSE RXN TO CHEMO; Start at 11:00 Docusate Sodium (Colace) 100 mg BID PRN PO CONSTIPATION Last administered on 10:20; Admin Dose 100 MG; Start 11/16/16 at 11:30 Amoxicillin/ Clavulanate Potassium (Augmentin) 875 mg BID PO Last administered on 11/24/16 08:59; Admin Dose 875 MG; Start 11/17/16 at 14:00 Bisacodyl (Dulcolax) 5 mg DAILY PRN PO CONSTIPATION Last administered on 18:50; Admin Dose 5 MG; Start 11/18/16 at 16:30 Polyethylene Glycol (Miralax) 17 gm DAILY PO Last administered on 11/23/16 08: 44; Admin Dose 17 GM; Start 11/19/16 at 09:00 Metoclopramide HCl (Reglan) 10 mg Q8H PRN IV Nausea; Start 11/19/16 at 11:00 Prochlorperazine 10 mg 10 mg Q8H PRN IM NAUSEA AND/OR VOMITING; Start 11/19/16 at 11:00 Potassium Chloride/Sodium Chloride (NS-KCl 20 Meq) 1,000 ml @ 80 mls/hr [id number] IV Last administered on 11/23/16 19:36; Admin Dose 80 MLS/HR; Start at 16:30 Filgrastim (Neupogen) 480 mcg DAILY@17 SC Last administered on 11/23/16 17:22 ; Admin Dose 480 MCG; Start 11/22/16 at 17:00; Stop 11/28/16 at 17:01 RUSS HINES M.D. November 24, 2016 13:12
[2016-11-24] MEDS: FILGRASTIM 480 MCG INJ SC SCH (17:31)
[2016-11-24 19:14] VITALS: BP 129/79; RESP 18
[2016-11-25] MEDS: NS + KCL 20 MEQ 1,000 ML IV SCH ×4 (02:52→21:17)
[2016-11-25] MEDS ORDERED: PANTOPRAZOLE 40 MG INJ IV ONE (05:00)
[2016-11-25] MEDS: ONDANSETRON 4 MG INJ IV PRN (05:07)
[2016-11-25] MEDS: HYDROCODONE/APAP (5/325) TAB PO PRN (05:07)
[2016-11-25 08:08] VITALS: BP 109/65; RESP 18
[2016-11-25] MEDS: POLYETHYLENE GLYCOL 17 GM PACKET PO SCH (09:00)
[2016-11-25] MEDS: AMOXICILLIN/CLAV 875 MG TAB PO SCH ×2 (09:53→21:16)
--- NOTE | 2016-11-25 13:18 | PN ---
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 Bueno on 10/11. Status post 1 cycle of chemotherapy. The patient is being admitted for second cycle of chemotherapy. Dr. Hoang is following in oncology consultation. - Gastritis. Continue Protonix. Problems: Subjective 24 Hr Interval Summary Free Text/Dictation Patient has no complaints Exam/Review of Systems Vital Signs Vitals Vital Signs Date Time Temp Pulse Resp B/P Pulse Ox O2 Delivery O2 Flow Rate FiO2 11/25/16 08:08 98.3 87 18 109/65 96 11/23/16 20:11 Room Air Intake and Output 11/24/16 11/24/16 11/25/16 15:00 23:00 07:00 Intake Total 1640 ml 940 ml Balance 1640 ml 940 ml Exam Constitutional: well developed Head: atraumatic, normocephalic Neck: supple Respiratory: clear to auscultation Cardiovascular: regular rate and rhythm Gastrointestinal: non-tender, soft Extremities: normal pulses Results Result Diagram: 11/24/16 0440 11/24/16 0440 Medications Medications Current Medications Acetaminophen/ Hydrocodone Bitart ([place] (5/325)) 1 tab Q4H PRN PO PAIN LEVEL 4 -7 Last administered on 11/25/16 05:07; Admin Dose 1 TAB; Start 11/15/16 at 12: 00 Ondansetron HCl (Zofran Inj) 4 mg Q4H PRN IV NAUSEA AND/OR VOMITING Last administered on 11/25/16 05:07; Admin Dose 4 MG; Start 11/15/16 at 12:00 Acetaminophen (Tylenol Tab) 650 mg Q4H PRN PO PAIN AND OR ELEVATED TEMP Last administered on 11/19/16 07:22; Admin Dose 650 MG; Start 11/15/16 at 12:00 Diphenhydramine HCl (Benadryl) 50 mg ONCE PRN IV ALLERGIC REACTION Last administered on 11/23/16 19:00; Admin Dose 50 MG; Start 11/16/16 at 11:00 Hydrocortisone (Solu-Cortef) 100 mg ONCE PRN IV ADVERSE RXN TO CHEMO; Start at 11:00 Docusate Sodium (Colace) 100 mg BID PRN PO CONSTIPATION Last administered on 10:20; Admin Dose 100 MG; Start 11/16/16 at 11:30 Amoxicillin/ Clavulanate Potassium (Augmentin) 875 mg BID PO Last administered on 11/25/16 09:53; Admin Dose 875 MG; Start 11/17/16 at 14:00 Bisacodyl (Dulcolax) 5 mg DAILY PRN PO CONSTIPATION Last administered on 18:50; Admin Dose 5 MG; Start 11/18/16 at 16:30 Polyethylene Glycol (Miralax) 17 gm DAILY PO Last administered on 11/23/16 08: 44; Admin Dose 17 GM; Start 11/19/16 at 09:00 Metoclopramide HCl (Reglan) 10 mg Q8H PRN IV Nausea; Start 11/19/16 at 11:00 Prochlorperazine 10 mg 10 mg Q8H PRN IM NAUSEA AND/OR VOMITING; Start 11/19/16 at 11:00 Potassium Chloride/Sodium Chloride (NS-KCl 20 Meq) 1,000 ml @ 80 mls/hr [id number] IV Last administered on 11/25/16 02:52; Admin Dose 80 MLS/HR; Start at 16:30 Filgrastim (Neupogen) 480 mcg DAILY@17 SC Last administered on 11/24/16 17:31 ; Admin Dose 480 MCG; Start 11/22/16 at 17:00; Stop 11/28/16 at 17:01 Pantoprazole (Protonix Iv) 20 mg DAILY@06 IV ; Start 11/26/16 at 06:00 MARCO XAVIER November 25, 2016 13:17
[2016-11-25] MEDS: FILGRASTIM 480 MCG INJ SC SCH (17:58)
[2016-11-25 19:37] VITALS: BP 113/69; RESP 18
[2016-11-26 05:23] LABS: ADD SCAN DIFF NO
[2016-11-26 05:30] LABS: ABNORMAL IP MESSAGE 1; HEMATOCRIT 34.3 % (37.0-47.0); HEMOGLOBIN 10.8 g/dl (12.0-16.0); MEAN CORPUSCULAR HEMOGLOBIN 28.1 pg (29.0-33.0); MEAN CORPUSCULAR HGB CONC 31.5 g/dl (32.0-37.0); MEAN CORPUSCULAR VOLUME 89.1 fl (82.0-101.0); MEAN PLATELET VOLUME 9.5 fl (7.4-10.4); PLATELET COUNT 279 10^3/UL (140-415); RED BLOOD COUNT 3.85 10^6/ul (4.20-5.40); RED CELL DISTRIBUTION WIDTH 16.1 % (11.5-14.5); WHITE BLOOD COUNT 20.3 10^3/ul (4.8-10.8)
[2016-11-26] MEDS: NS + KCL 20 MEQ 1,000 ML IV SCH (05:35)
[2016-11-26] MEDS: PANTOPRAZOLE 40 MG INJ IV SCH (05:35)
[2016-11-26 06:01] LABS: ALBUMIN 2.9 g/dl (3.3-4.9); ALBUMIN/GLOBULIN RATIO 1.11; BILIRUBIN,INDIRECT 0.1 mg/dl (0-1.1); BILIRUBIN,TOTAL 0.1 mg/dl (0.2-1.3); CALCIUM 8.8 mg/dl (8.4-10.2); CREATININE 0.58 mg/dl (0.44-1.00); POTASSIUM 4.1 mmol/L (3.5-5.1); TOTAL PROTEIN 5.5 g/dl (6.1-8.1)
[2016-11-26 08:20] VITALS: BP 122/60; RESP 18
[2016-11-26] MEDS: AMOXICILLIN/CLAV 875 MG TAB PO SCH (08:51)
[2016-11-26] MEDS: POLYETHYLENE GLYCOL 17 GM PACKET PO SCH (08:52)
[2016-11-26 10:11] LABS: MONOCYTE # 0.8 10^3/ul (0.3-0.9); NEUTROPHIL # 10.4 10^3/ul (1.6-7.5); POLYCHROMASIA 1+
--- NOTE | 2016-11-26 10:40 | PN ---
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 Bueno on 10/11. Status post 1 cycle of chemotherapy. The patient is being admitted for second cycle of chemotherapy. Dr. Hoang is following in oncology consultation. - Gastritis. Continue Protonix. Problems: Subjective 24 Hr Interval Summary Free Text/Dictation Patient has no complaints Exam/Review of Systems Vital Signs Vitals Vital Signs Date Time Temp Pulse Resp B/P Pulse Ox O2 Delivery O2 Flow Rate FiO2 11/26/16 08:20 98.0 66 18 122/60 97 11/23/16 20:11 Room Air Intake and Output 11/25/16 11/25/16 11/26/16 15:00 23:00 07:00 Intake Total 620 ml 1640 ml 2560 ml Output Total 2200 ml Balance 620 ml 1640 ml 360 ml Exam Constitutional: well developed Head: atraumatic, normocephalic Neck: supple Respiratory: diminished breath sounds Cardiovascular: regular rate and rhythm Gastrointestinal: non-tender, soft Extremities: normal pulses Results Result Diagram: 11/26/16 0425 11/26/16 0425 Results 24 hrs Laboratory Tests Test 11/26/16 04:25 White Blood Count 20.3 #H Red Blood Count 3.85 L Hemoglobin 10.8 L Hematocrit 34.3 L Mean Corpuscular Volume 89.1 Mean Corpuscular Hemoglobin 28.1 L Mean Corpuscular Hemoglobin Concent 31.5 L Red Cell Distribution Width 16.1 H Platelet Count 279 Mean Platelet Volume 9.5 Neutrophils % 51.0 Band Neutrophils % 23.0 H Lymphocytes % 10.0 L Monocytes % 4.0 Eosinophils % Metamyelocytes % 7.0 H Myelocytes % 5.0 H Neutrophils # 10.4 H Lymphocytes # 2.0 Monocytes # 0.8 Eosinophils # Metamyelocytes # 1.4 Myelocytes # 1.0 Polychromasia 1+ Sodium Level 143 Potassium Level 4.1 Chloride Level 107 Carbon Dioxide Level 26 Anion Gap 14 # Blood Urea Nitrogen 10 Creatinine 0.58 Glucose Level 83 Calcium Level 8.8 Total Bilirubin 0.1 L Direct Bilirubin 0.00 Indirect Bilirubin 0.1 Aspartate Amino Transf (AST/SGOT) 29 Alanine Aminotransferase (ALT/SGPT) 35 Alkaline Phosphatase 71 Total Protein 5.5 L Albumin 2.9 L Globulin 2.60 Albumin/Globulin Ratio 1.11 Medications Medications Current Medications Acetaminophen/ Hydrocodone Bitart ([place] (5/325)) 1 tab Q4H PRN PO PAIN LEVEL 4 -7 Last administered on 11/25/16 05:07; Admin Dose 1 TAB; Start 11/15/16 at 12: 00 Ondansetron HCl (Zofran Inj) 4 mg Q4H PRN IV NAUSEA AND/OR VOMITING Last administered on 11/25/16 05:07; Admin Dose 4 MG; Start 11/15/16 at 12:00 Acetaminophen (Tylenol Tab) 650 mg Q4H PRN PO PAIN AND OR ELEVATED TEMP Last administered on 11/19/16 07:22; Admin Dose 650 MG; Start 11/15/16 at 12:00 Diphenhydramine HCl (Benadryl) 50 mg ONCE PRN IV ALLERGIC REACTION Last administered on 11/23/16 19:00; Admin Dose 50 MG; Start 11/16/16 at 11:00 Hydrocortisone (Solu-Cortef) 100 mg ONCE PRN IV ADVERSE RXN TO CHEMO; Start at 11:00 Docusate Sodium (Colace) 100 mg BID PRN PO CONSTIPATION Last administered on 10:20; Admin Dose 100 MG; Start 11/16/16 at 11:30 Amoxicillin/ Clavulanate Potassium (Augmentin) 875 mg BID PO Last administered on 11/26/16 08:51; Admin Dose 875 MG; Start 11/17/16 at 14:00 Bisacodyl (Dulcolax) 5 mg DAILY PRN PO CONSTIPATION Last administered on 18:50; Admin Dose 5 MG; Start 11/18/16 at 16:30 Polyethylene Glycol (Miralax) 17 gm DAILY PO Last administered on 11/23/16 08: 44; Admin Dose 17 GM; Start 11/19/16 at 09:00 Metoclopramide HCl (Reglan) 10 mg Q8H PRN IV Nausea; Start 11/19/16 at 11:00 Prochlorperazine 10 mg 10 mg Q8H PRN IM NAUSEA AND/OR VOMITING; Start 11/19/16 at 11:00 Potassium Chloride/Sodium Chloride (NS-KCl 20 Meq) 1,000 ml @ 80 mls/hr [id number] IV Last administered on 11/26/16 05:35; Admin Dose 80 MLS/HR; Start at 16:30 Filgrastim (Neupogen) 480 mcg DAILY@17 SC Last administered on 11/25/16 17:58 ; Admin Dose 480 MCG; Start 11/22/16 at 17:00; Stop 11/28/16 at 17:01 Pantoprazole (Protonix Iv) 20 mg DAILY@06 IV Last administered on 11/26/16 05: 35; Admin Dose 20 MG; Start 11/26/16 at 06:00 MARCO XAVIER November 26, 2016 10:40
--- NOTE | 2016-11-26 12:21 | CONS ---
Date/Time of Note Date/Time of Note DATE: 11/26/16 TIME: 12:17 Assessment/Plan Assessment/Plan Chief Complaint/Hosp Course The patient is a 56-year-old female with recent diagnosis of endometrial cancer on 09/17/2016 by endometrial biopsy. The patient was diagnosed with stage IV endometrial cancer. She underwent CYNDI/BSO and recto-sigmoid en-bloc with low anastomosis per Dr. Bueno on 10/11/16. She had extensive positive retroperitoneal lymph nodes removed but the confluence of disease makes her classified as millimeter residual disease. Path report showed metastatic carcinosarcoma. Per Dr. Kitchen of pathology, tumor is poorly differentiated though mostly sarcoma (90%) in the metastases. Patient received cycle 2 ifosfamide/taxol on 11.16.16 - Patient readmitted for cycle 2 Ifosfamide/taxol. Plan for 4 cycles of ifosfamide/taxol followd by 4 cycles of carbo/taxol per discussion with Dr. Bueno. Side effects including N/V, fatigue, myelosuppression, allergic reaction, confusion, hemorrhagic cystitis discussed with the patient. - Check daily UA while receiving ifosfamide. Urine culture showed > 100,000 enterococcus, would recommend empiric treatment given patient on chemotherapy. Patient started on augmentin per primary team, ken-sensitive. Patient asymptomatic. Monitor for hemorrhagic cystitis. - Avoid benzodiazpines or ambien while receiving ifosfamide. Monitor for MOTION [employer] symptoms or encephalopathy with ifosfamide. - Patient received decadron 20 mg PO 12 hours and 6 hours prior to paclitaxel - patient continues on neupogen 480 mcg daily as counts are dropping. pending auth for neupogen to be administered and billed through my office - s/p 2 units of PRBCs. Hg now > 10 - colace, miralax prn constipation - zofran prn, added compazine and reglan prn nausea/vomiting. Consider adding akynzeo for next cycle chemotherapy, non-formulary filled out. Patient to remain inpatient for now for monitoring of blood counts pending case management authorization for neupogen Patient will need to be re-admitted approximately 12/06/16 for cycle 3 ifosfamide/ taxol Chemo regimen (completed) Ifosfamide 1600 mg/mg2 IV once per week D1-3 Paclitaxel 135 mg/m2 IV over 3 hours D1 [place] 2000 mg IV over 12 hours once per day (15 minutes before ifosfamide) D1-3 Decadron 20 mg PO 12 hours and 6 hours prior to paclitaxel Neupogen 480 mcg subcutaneous once per day starting D4 for 10 days. dc neupogen today as WBC is 20 and patient has already received 4 doses. will recheck CBC tomorrow Problems: Consultation Date/Type/Reason Admit Date/Time November 15, 2016 at 10:12 Initial Consult Date 11/15/16 Type of Consultation: Hematology Reason for Consultation uterine sarcoma Referring Provider: ARLENE CHOWDARY MD 24 HR Interval Summary Free Text/Dictation pt feels well. Exam/Review of Systems Vital Signs Vitals Vital Signs Date Time Temp Pulse Resp B/P Pulse Ox O2 Delivery O2 Flow Rate FiO2 11/26/16 08:20 98.0 66 18 122/60 97 11/23/16 20:11 Room Air Intake and Output 11/25/16 11/25/16 11/26/16 15:00 23:00 07:00 Intake Total 620 ml 1640 ml 2560 ml Output Total 2200 ml Balance 620 ml 1640 ml 360 ml Exam Constitutional: alert, oriented Psych: no complaints Head: atraumatic, normocephalic Eyes: nl conjunctiva ENMT: nl external ears & nose Neck: non-tender, supple Respiratory: clear to auscultation Cardiovascular: regular rate and rhythm Gastrointestinal: soft, surgical scars Musculoskeletal: nl extremities to inspection Results Result Diagram: 11/26/16 0425 11/26/16 0425 Results 24 hrs Laboratory Tests Test 11/26/16 04:25 White Blood Count 20.3 #H Red Blood Count 3.85 L Hemoglobin 10.8 L Hematocrit 34.3 L Mean Corpuscular Volume 89.1 Mean Corpuscular Hemoglobin 28.1 L Mean Corpuscular Hemoglobin Concent 31.5 L Red Cell Distribution Width 16.1 H Platelet Count 279 Mean Platelet Volume 9.5 Neutrophils % 51.0 Band Neutrophils % 23.0 H Lymphocytes % 10.0 L Monocytes % 4.0 Eosinophils % Metamyelocytes % 7.0 H Myelocytes % 5.0 H Neutrophils # 10.4 H Lymphocytes # 2.0 Monocytes # 0.8 Eosinophils # Metamyelocytes # 1.4 Myelocytes # 1.0 Polychromasia 1+ Sodium Level 143 Potassium Level 4.1 Chloride Level 107 Carbon Dioxide Level 26 Anion Gap 14 # Blood Urea Nitrogen 10 Creatinine 0.58 Glucose Level 83 Calcium Level 8.8 Total Bilirubin 0.1 L Direct Bilirubin 0.00 Indirect Bilirubin 0.1 Aspartate Amino Transf (AST/SGOT) 29 Alanine Aminotransferase (ALT/SGPT) 35 Alkaline Phosphatase 71 Total Protein 5.5 L Albumin 2.9 L Globulin 2.60 Albumin/Globulin Ratio 1.11 Medications Medications Current Medications Acetaminophen/ Hydrocodone Bitart ([place] (5/325)) 1 tab Q4H PRN PO PAIN LEVEL 4 -7 Last administered on 11/25/16 05:07; Admin Dose 1 TAB; Start 11/15/16 at 12: 00 Ondansetron HCl (Zofran Inj) 4 mg Q4H PRN IV NAUSEA AND/OR VOMITING Last administered on 11/25/16 05:07; Admin Dose 4 MG; Start 11/15/16 at 12:00 Acetaminophen (Tylenol Tab) 650 mg Q4H PRN PO PAIN AND OR ELEVATED TEMP Last administered on 11/19/16 07:22; Admin Dose 650 MG; Start 11/15/16 at 12:00 Diphenhydramine HCl (Benadryl) 50 mg ONCE PRN IV ALLERGIC REACTION Last administered on 11/23/16 19:00; Admin Dose 50 MG; Start 11/16/16 at 11:00 Hydrocortisone (Solu-Cortef) 100 mg ONCE PRN IV ADVERSE RXN TO CHEMO; Start at 11:00 Docusate Sodium (Colace) 100 mg BID PRN PO CONSTIPATION Last administered on 10:20; Admin Dose 100 MG; Start 11/16/16 at 11:30 Bisacodyl (Dulcolax) 5 mg DAILY PRN PO CONSTIPATION Last administered on 18:50; Admin Dose 5 MG; Start 11/18/16 at 16:30 Polyethylene Glycol (Miralax) 17 gm DAILY PO Last administered on 11/23/16 08: 44; Admin Dose 17 GM; Start 11/19/16 at 09:00 Metoclopramide HCl (Reglan) 10 mg Q8H PRN IV Nausea; Start 11/19/16 at 11:00 Prochlorperazine (Compazine Inj) 10 mg Q8H PRN IM NAUSEA AND/OR VOMITING; Start 11/19/16 at 11:00 Filgrastim (Neupogen) 480 mcg DAILY@17 SC Last administered on 11/25/16 17:58 ; Admin Dose 480 MCG; Start 11/22/16 at 17:00; Stop 11/28/16 at 17:01 Pantoprazole (Protonix Iv) 20 mg DAILY@06 IV Last administered on 11/26/16 05: 35; Admin Dose 20 MG; Start 11/26/16 at 06:00 RUSS HINES M.D. November 26, 2016 12:21
[2016-11-26 20:38] VITALS: BP 123/69; RESP 18
[2016-11-27 05:10] LABS: ADD SCAN DIFF NO
[2016-11-27 05:17] LABS: ABNORMAL IP MESSAGE 1; HEMATOCRIT 33.6 % (37.0-47.0); HEMOGLOBIN 10.8 g/dl (12.0-16.0); MEAN CORPUSCULAR HEMOGLOBIN 28.5 pg (29.0-33.0); MEAN CORPUSCULAR HGB CONC 32.1 g/dl (32.0-37.0); MEAN CORPUSCULAR VOLUME 88.7 fl (82.0-101.0); MEAN PLATELET VOLUME 9.4 fl (7.4-10.4); PLATELET COUNT 270 10^3/UL (140-415); RED BLOOD COUNT 3.79 10^6/ul (4.20-5.40); RED CELL DISTRIBUTION WIDTH 16.1 % (11.5-14.5)
[2016-11-27 05:33] LABS: ALBUMIN 2.9 g/dl (3.3-4.9); ALBUMIN/GLOBULIN RATIO 1.16; CALCIUM 8.8 mg/dl (8.4-10.2); CREATININE 0.57 mg/dl (0.44-1.00); POTASSIUM 3.7 mmol/L (3.5-5.1); TOTAL PROTEIN 5.4 g/dl (6.1-8.1)
[2016-11-27] MEDS: PANTOPRAZOLE 40 MG INJ IV SCH (06:17)
[2016-11-27 08:53] VITALS: BP 125/74; RESP 20
[2016-11-27] MEDS: POLYETHYLENE GLYCOL 17 GM PACKET PO SCH (09:00)
[2016-11-27 09:55] LABS: LYMPHOCYTES # 0.7 10^3/ul (0.8-2.9); MONOCYTE # 1.7 10^3/ul (0.3-0.9); MYELOCYTES # 0.2; NEUTROPHIL # 13.7 10^3/ul (1.6-7.5)
--- NOTE | 2016-11-27 11:05 | CONS ---
Date/Time of Note Date/Time of Note DATE: 11/27/16 TIME: 11:02 Assessment/Plan Assessment/Plan Chief Complaint/Hosp Course The patient is a 56-year-old female with recent diagnosis of endometrial cancer on 09/17/2016 by endometrial biopsy. The patient was diagnosed with stage IV endometrial cancer. She underwent CYNDI/BSO and recto-sigmoid en-bloc with low anastomosis per Dr. Bueno on 10/11/16. She had extensive positive retroperitoneal lymph nodes removed but the confluence of disease makes her classified as millimeter residual disease. Path report showed metastatic carcinosarcoma. Per Dr. Kitchen of pathology, tumor is poorly differentiated though mostly sarcoma (90%) in the metastases. Patient received cycle 2 ifosfamide/taxol on 11.16.16 - Patient readmitted for cycle 2 Ifosfamide/taxol. Plan for 4 cycles of ifosfamide/taxol followd by 4 cycles of carbo/taxol per discussion with Dr. Bueno. Side effects including N/V, fatigue, myelosuppression, allergic reaction, confusion, hemorrhagic cystitis discussed with the patient. - Check daily UA while receiving ifosfamide. Urine culture showed > 100,000 enterococcus, would recommend empiric treatment given patient on chemotherapy. Patient started on augmentin per primary team, ken-sensitive. Patient asymptomatic. Monitor for hemorrhagic cystitis. - Avoid benzodiazpines or ambien while receiving ifosfamide. Monitor for STORES ASSISTANT symptoms or encephalopathy with ifosfamide. - Patient received decadron 20 mg PO 12 hours and 6 hours prior to paclitaxel - s/p 2 units of PRBCs. Hg now > 10 - colace, miralax prn constipation - zofran prn, added compazine and reglan prn nausea/vomiting. Consider adding akynzeo for next cycle chemotherapy, non-formulary filled out. Patient will need to be re-admitted approximately 12/06/16 for cycle 3 ifosfamide/ taxol Chemo regimen (completed) Ifosfamide 1600 mg/mg2 IV once per week D1-3 Paclitaxel 135 mg/m2 IV over 3 hours D1 [place] 2000 mg IV over 12 hours once per day (15 minutes before ifosfamide) D1-3 Decadron 20 mg PO 12 hours and 6 hours prior to paclitaxel Neupogen 480 mcg subcutaneous once per day starting D4. Neupogen discontinued yesterday as WBC was 20 and patient has already received 4 doses. WBC today 24.0 , ok to discharge home. Patient should follow up with me in clinic later this week or early next week and will be re-admitted on 12/06/16 for cycle 3 of chemo. Please also arrange for home health dressing changes for PICC line. Problems: Consultation Date/Type/Reason Admit Date/Time November 15, 2016 at 10:12 Initial Consult Date 11/15/16 Type of Consultation: Hematology/Oncology Referring Provider: ARLENE CHOWDARY MD 24 HR Interval Summary Free Text/Dictation Patient doing well, has no complaints. No nausea/vomiting, feels well. Exam/Review of Systems Vital Signs Vitals Vital Signs Date Time Temp Pulse Resp B/P Pulse Ox O2 Delivery O2 Flow Rate FiO2 11/27/16 08:53 98.1 87 20 125/74 99 11/23/16 20:11 Room Air Intake and Output 11/26/16 11/26/16 11/27/16 15:00 23:00 07:00 Intake Total 400 ml 1600 ml 800 ml Output Total 1200 ml 800 ml Balance 400 ml 400 ml 0 ml Exam Constitutional: alert, oriented Psych: no complaints Head: atraumatic, normocephalic Eyes: nl conjunctiva ENMT: nl external ears & nose Neck: non-tender, supple Respiratory: clear to auscultation Cardiovascular: regular rate and rhythm Gastrointestinal: soft, surgical scars Musculoskeletal: nl extremities to inspection Results Result Diagram: 11/27/16 0433 11/27/16 0433 Results 24 hrs Laboratory Tests Test 11/27/16 04:33 White Blood Count 24.0 H Red Blood Count 3.79 L Hemoglobin 10.8 L Hematocrit 33.6 L Mean Corpuscular Volume 88.7 Mean Corpuscular Hemoglobin 28.5 L Mean Corpuscular Hemoglobin Concent 32.1 Red Cell Distribution Width 16.1 H Platelet Count 270 Mean Platelet Volume 9.4 Neutrophils % 57.0 Band Neutrophils % 25.0 H Lymphocytes % 3.0 L Monocytes % 7.0 Eosinophils % Metamyelocytes % 7.0 H Myelocytes % 1.0 H Neutrophils # 13.7 H Lymphocytes # 0.7 L Monocytes # 1.7 H Eosinophils # Metamyelocytes # 1.7 Myelocytes # 0.2 Sodium Level 137 Potassium Level 3.7 Chloride Level 106 Carbon Dioxide Level 28 Anion Gap 7 L Blood Urea Nitrogen 11 Creatinine 0.57 Glucose Level 88 Calcium Level 8.8 Total Bilirubin 0.0 L Direct Bilirubin 0.00 Indirect Bilirubin 0.0 Aspartate Amino Transf (AST/SGOT) 27 Alanine Aminotransferase (ALT/SGPT) 34 Alkaline Phosphatase 78 Total Protein 5.4 L Albumin 2.9 L Globulin 2.50 Albumin/Globulin Ratio 1.16 Medications Medications Current Medications Acetaminophen/ Hydrocodone Bitart ([place] (5/325)) 1 tab Q4H PRN PO PAIN LEVEL 4 -7 Last administered on 11/25/16 05:07; Admin Dose 1 TAB; Start 11/15/16 at 12: 00 Ondansetron HCl (Zofran Inj) 4 mg Q4H PRN IV NAUSEA AND/OR VOMITING Last administered on 11/25/16 05:07; Admin Dose 4 MG; Start 11/15/16 at 12:00 Acetaminophen (Tylenol Tab) 650 mg Q4H PRN PO PAIN AND OR ELEVATED TEMP Last administered on 11/19/16 07:22; Admin Dose 650 MG; Start 11/15/16 at 12:00 Diphenhydramine HCl (Benadryl) 50 mg ONCE PRN IV ALLERGIC REACTION Last administered on 11/23/16 19:00; Admin Dose 50 MG; Start 11/16/16 at 11:00 Hydrocortisone (Solu-Cortef) 100 mg ONCE PRN IV ADVERSE RXN TO CHEMO; Start at 11:00 Docusate Sodium (Colace) 100 mg BID PRN PO CONSTIPATION Last administered on 10:20; Admin Dose 100 MG; Start 11/16/16 at 11:30 Bisacodyl (Dulcolax) 5 mg DAILY PRN PO CONSTIPATION Last administered on 18:50; Admin Dose 5 MG; Start 11/18/16 at 16:30 Polyethylene Glycol (Miralax) 17 gm DAILY PO Last administered on 11/23/16 08: 44; Admin Dose 17 GM; Start 11/19/16 at 09:00 Metoclopramide HCl (Reglan) 10 mg Q8H PRN IV Nausea; Start 11/19/16 at 11:00 Prochlorperazine (Compazine Inj) 10 mg Q8H PRN IM NAUSEA AND/OR VOMITING; Start 11/19/16 at 11:00 Pantoprazole (Protonix Iv) 20 mg DAILY@06 IV Last administered on 11/27/16t 06: 17; Admin Dose 20 MG; Start 11/26/16 at 06:00 LINDA SWANSON MD November 27, 2016 11:05
[2016-11-27] MEDS ORDERED: OMEP20CA16 PO (18:05)
[2016-11-27] MEDS ORDERED: HYDR-906 PO (18:05)
[2016-11-27 20:08] VITALS: BP 113/76; PULSE 85; RESP 16
== END 2016-11-27 20:35 | disposition home health service (06) | DRG 847 ==
LOC: MS1 10:12
PROVIDERS: ADMIT Internal Medicine; ATTEND Internal Medicine
PROC: 3E04305 Introduction of Other Antineoplastic into Central Vein, Percutaneous Approach (ICD-10-PCS; principal; 2016-11-15)
PROC: 30233N1 Transfusion of Nonautologous Red Blood Cells into Peripheral Vein, Percutaneous Approach (ICD-10-PCS; 2016-11-23)
DX: Z51.11 Encounter for antineoplastic chemotherapy (principal); C77.5 Secondary and unspecified malignant neoplasm of intrapelvic lymph nodes; N39.0 Urinary tract infection, site not specified; C78.4 Secondary malignant neoplasm of small intestine; C78.6 Secondary malignant neoplasm of retroperitoneum and peritoneum; C77.2 Secondary and unspecified malignant neoplasm of intra-abdominal lymph nodes; B96.20 Unspecified Escherichia coli [E. coli] as the cause of diseases classified elsewhere; C78.5 Secondary malignant neoplasm of large intestine and rectum; C79.82 Secondary malignant neoplasm of genital organs; C79.62 Secondary malignant neoplasm of left ovary; C79.61 Secondary malignant neoplasm of right ovary; C79.89 Secondary malignant neoplasm of other specified sites; C54.1 Malignant neoplasm of endometrium; I10 Essential (primary) hypertension; E78.5 Hyperlipidemia, unspecified; K29.70 Gastritis, unspecified, without bleeding; E87.6 Hypokalemia; K59.00 Constipation, unspecified; R11.2 Nausea with vomiting, unspecified; Z90.710 Acquired absence of both cervix and uterus; Z90.722 Acquired absence of ovaries, bilateral
CPT/HCPCS: 36430; 80048; 80053; 81001; 81003; 85025; 86644; 86850; 86900; 86901; 86920; 86945; 87081; 87086; 93005; J9209; J9267; C9113; J1100; J1200; J2405; J3480; J7030; J7040; J7042; J7050; P9016

== ENCOUNTER 2016-12-06 08:16 | Inpatient (IN) | payer OTHER ==
[~2016-12-06] VITALS: Ht 165.1 cm; Wt 67.0 kg
[2016-12-11 10:55] VITALS: BP 108/65; PULSE 68; RESP 20
[2016-12-11 11:15] VITALS: Ht 165.1 cm; Wt 67.0 kg
[2016-12-11] MEDS ORDERED: HYDROCODONE/APAP (5/325) TAB PO PRN ×2 (12:00→14:00)
[2016-12-11] MEDS ORDERED: SOD CHLORIDE 0.9% 1,000 ML IV SCH (12:00)
[2016-12-11] MEDS ORDERED: DEXAMETHASONE 4 MG TAB PO SCH (12:00)
[2016-12-11] MEDS ORDERED: ACETAMINOPHEN 325 MG TAB PO PRN ×2 (12:00→14:00)
[2016-12-11] MEDS ORDERED: METOCLOPRAMIDE 10 MG INJ IV PRN (14:00)
[2016-12-11] MEDS ORDERED: morphine 2 MG INJ IV PRN (14:00)
[2016-12-11] MEDS ORDERED: PROCHLORPERAZINE 10 MG INJ IV PRN (14:00)
--- NOTE | 2016-12-11 14:26 | HP ---
DATE OF ADMISSION: 12/11/2016 HISTORY OF PRESENT ILLNESS: The patient is a 56-year-old female with stage IV, endometrial carcinom a. The patient is status post total abdominal hysterectomy and bilateral salpingo-oophorectomy and rectosigmoid ____ with low anastomosis by Dr. Bueno in September 2016. The patient follows with Dr. Logan in oncology consultation. The patient received 2 cycles of chemotherapy. Since the patient w as classified as ____ residual disease, the patient received cycle 2 of ifosfamide Taxol in October and now the patient is admitted for cycle 3 of chemotherapy. The patient has a right upper extremity PI CC line. Patient denies any fever, chills. Denies any nausea, vomiting. Denies diarrhea, denies c hest pain, denies shortness of breath, denies any bilateral lower extremity swelling. PAST MEDICAL HISTORY: Per HPI. The patient also had a past history of gastritis. PAST SURGICAL HISTORY: Per HPI, plus status post cholecystectomy and history of a left breast biops y, details are not available. FAMILY HISTORY: Father due to heart disease. The patient's mother with hypertension, dysl ipidemia, and diabetes. SOCIAL HISTORY: The patient lives at home. The patient denies any tobacco use, denies any alcohol use, denies any illicit drug use. ALLERGIES: NO KNOWN ALLERGIES. HOME MEDICATIONS: Includes: 1. Omeprazole. 2. Pomerene p.r.n. for pain. REVIEW OF SYSTEMS: A 12-point review of systems is negative unless was mentioned in the HPI. PHYSICAL ASSESSMENT: GENERAL: Well-developed, well-nourished female in no acute distress. VITAL SIGNS: Temperature is 98.1, pulse is 68, respiratory rate 20, blood pressure 108/65, oxygen s aturation 97% on room air. HEENT: Head is atraumatic, normocephalic. Pupils equal, round, reactive to light and accommodation . Oral mucosa is pink and moist. NECK: Supple, no cervical lymphadenopathy, no thyromegaly. CHEST: Lungs clear bilaterally. There is no rhonchi, wheezes, rales noted. CARDIOVASCULAR: Normal S1, S2. No murmurs, gallops, clicks, rubs noted. ABDOMEN: Round, soft, nondistended, nontender with completely healed surgical incision. EXTREMITIES: No edema, clubbing, cyanosis. Pulses equal bilaterally 2+. SKIN: There is no rash, petechiae noted. NEUROLOGIC: The patient is awake, alert and oriented x4. No focal deficits noted. Motor strength 5/5 in all extremities. ASSESSMENT AND PLAN: 1. Stage IV, endometrial cancer status post total abdominal hysterectomy and bilateral salpingo-oop horectomy and rectosigmoid ____ with low anastomosis in September 2016. The patient is admitted for a c ycle 3 of chemotherapy. The patient will be followed by Dr. Logan in oncology consultation. 2. Gastritis by history. Will continue Protonix for peptic ulcer disease prophylaxis. We will obt ain a CMP and CBC. Regular diet. ACTIVITIES: As patient tolerates. MEDICATIONS We will start Tylenol and Pomerene p.r.n. for pain, Compazine and Reglan p.r.n. for nausea . Further recommendations based on clinical course. Plan of care discussed with Dr. Chowdary. Dictated By: ELVIN TEIXEIRA ARTIST WOODBLOCK for ARLENE CHOWDARY MD SR/NTS Conf#: [id number] DID#: [id number]
[2016-12-11 14:32] LABS: ADD SCAN DIFF NO
[2016-12-11 14:37] LABS: EOSINOPHILS % 0.5 % (0.0-7.0); HEMATOCRIT 34.6 % (37.0-47.0); HEMOGLOBIN 11.1 g/dl (12.0-16.0); LYMPHOCYTES # 0.7 10^3/ul (0.8-2.9); LYMPHOCYTES % 17.7 % (15.0-51.0); MEAN CORPUSCULAR HEMOGLOBIN 28.9 pg (29.0-33.0); MEAN CORPUSCULAR HGB CONC 32.1 g/dl (32.0-37.0); MEAN CORPUSCULAR VOLUME 90.1 fl (82.0-101.0); MONOCYTE # 0.5 10^3/ul (0.3-0.9); NEUTROPHIL # 2.9 10^3/ul (1.6-7.5); NEUTROPHILS % 69.6 % (39.0-77.0); PLATELET COUNT 321 10^3/UL (140-415); RED BLOOD COUNT 3.84 10^6/ul (4.20-5.40); RED CELL DISTRIBUTION WIDTH 15.7 % (11.5-14.5); WHITE BLOOD COUNT 4.2 10^3/ul (4.8-10.8)
--- NOTE | 2016-12-11 14:44 | CONS ---
Date/Time of Note Date/Time of Note DATE: 12/11/16 TIME: 14:29 Assessment/Plan Assessment/Plan Chief Complaint/Hosp Course 56yo female with metastatic uterine sarcoma now admitted for cycle 3 of ifex/ taxol. - Patient readmitted for cycle 3 Ifosfamide/taxol. Plan for a total of 4 cycles of ifosfamide/taxol followd by 4 cycles of carbo/taxol per discussion with Dr. Bueno. Side effects including N/V, fatigue, myelosuppression, allergic reaction, confusion, hemorrhagic cystitis discussed with the patient. - Check daily UA while receiving ifosfamide. Monitor for hemorrhagic cystitis. - Avoid benzodiazepines or ambien while receiving ifosfamide. Monitor for STREET SPRINKLER symptoms or encephalopathy with ifosfamide. - Patient received decadron 20 mg PO 12 hours and 6 hours prior to paclitaxel - Hg now > 10 - colace, miralax prn constipation - zofran prn, added compazine and reglan prn nausea/vomiting. Consider adding akynzeo for next cycle chemotherapy, non-formulary filled out. Chemo regimen (completed) Ifosfamide 1600 mg/mg2 IV once per week D1-3 Paclitaxel 135 mg/m2 IV over 3 hours D1 [place] 2000 mg IV over 12 hours once per day (15 minutes before ifosfamide) D1-3 Decadron 20 mg PO 12 hours and 6 hours prior to paclitaxel Neupogen 480 mcg subcutaneous once per day starting D4. Problems: Consultation Date/Type/Reason Admit Date/Time Dec 11, 2016 at 10:23 Date of Consultation: Dec 11, 2016 Type of Consultation: oncology Reason for Consultation uterine sarcoma Referring Provider: ARLENE CHOWDARY MD Hx of Present Illness The patient is a 56-year-old female with recent diagnosis of stage IV endometrial carcinosarcoma. She underwent massive surgical procedure with CYNDI/ BSO and recto-sigmoid en-bloc with low anastomosis per Dr. Bueno. She had extensive positive retroperitoneal lymph nodes removed but the confluence of disease makes her classified as millimeter residual disease. The patient is a 56 -year-old female with recent diagnosis of endometrial cancer on 09/17/2016 by endometrial biopsy. Per Dr. Kitchen of pathology, tumor is poorly differentiated though mostly sarcoma (90%) in the metastases. Patient received cycle 2 ifosfamide/taxol on 11.16.16. She is now being admitted for cycle 3 of therapy. Currently patient's PICC line is not working. Past Medical History Hypertension, Dyslipidemia, gastritis Past Surgical History The patient is status post cholecystectomy and also history of biopsy of left breast Family History Significant Family History: other ( Mother has hypertension, dyslipidemia and diabetes. Father due to heart disease, details not available, and father also had CVA.) Social History Alcohol Use: none Smoking Status: Never smoker Drug Use: none Exam/Review of Systems Vital Signs Vitals Vital Signs Date Time Temp Pulse Resp B/P Pulse Ox O2 Delivery O2 Flow Rate FiO2 12/11/16 10:55 98.1 68 20 108/65 97 Room Air Exam Constitutional: alert, oriented Psych: nl mood/affect, no complaints Head: normocephalic Eyes: nl conjunctiva ENMT: nl external ears & nose, nl lips & teeth Neck: non-tender, supple Respiratory: clear to auscultation, normal air movement Cardiovascular: regular rate and rhythm Gastrointestinal: soft Musculoskeletal: nl extremities to inspection, nl gait and stance Extremities: normal pulses Neurological: STREET SPRINKLER II-XII intact Medications Medications Current Medications Dexamethasone 20 mg 20 mg Q6H PO ; Start 12/11/16 at 12:00; Stop 12/11/16 at 18: 01 Sodium Chloride (NS) 1,000 ml @ 50 mls/hr Q20H IV ; Start 12/11/16 at 12:00 Enoxaparin Sodium (Lovenox) 40 mg DAILY SC ; Start 12/11/16 at 13:00 Metoclopramide HCl (Reglan) 10 mg Q6H PRN IV NAUSEA AND/OR VOMITING; Start at 14:00 Acetaminophen (Tylenol Tab) 650 mg Q6H PRN PO PAIN LEVEL 1-3 OR FEVER; Start at 14:00 Acetaminophen/ Hydrocodone Bitart ([place] (5/325)) 1 tab Q6H PRN PO MODERATE PAIN LEVEL 4-6; Start 12/11/16 at 14:00 Morphine Sulfate (morphine) 2 mg Q4H PRN IV SEVERE PAIN LEVEL 7-10; Start 12/11 at 14:00 Pantoprazole (Protonix Tab) 40 mg DAILY@06 PO ; Start 12/12/16 at 06:00 Prochlorperazine (Compazine Inj) 10 mg Q4H PRN IV NAUSEA AND/OR VOMITING; Start 12/11/16 at 14:00 RUSS HINES M.D. Dec 11, 2016 14:39
[2016-12-11 14:52] LABS: INR 0.93; PROTIME 12.5 Sec (12.2-14.2)
[2016-12-11 14:53] LABS: PARTIAL THROMBOPLASTIN TIME 29.6 Sec (25.0-35.0)
[2016-12-11 14:59] LABS: CALCIUM 8.7 mg/dl (8.4-10.2); CREATININE 0.75 mg/dl (0.44-1.00); POTASSIUM 3.9 mmol/L (3.5-5.1)
[2016-12-11] MEDS: ENOXAPARIN 40 MG/0.4 ML SYG SC SCH (16:01)
[2016-12-11 19:36] VITALS: BP 99/55; RESP 18
[2016-12-12] VITALS (16 sets, daily range): BP systolic 103–127; BP diastolic 59–78; PULSE 68–84; RESP 18–22
[2016-12-12 04:59] LABS: ADD SCAN DIFF NO
[2016-12-12 05:11] LABS: BASOPHILS % 0.7 % (0.0-2.0); EOSINOPHILS % 0.7 % (0.0-7.0); HEMATOCRIT 35.3 % (37.0-47.0); HEMOGLOBIN 11.1 g/dl (12.0-16.0); LYMPHOCYTES % 24.4 % (15.0-51.0); MEAN CORPUSCULAR HEMOGLOBIN 28.1 pg (29.0-33.0); MEAN CORPUSCULAR HGB CONC 31.4 g/dl (32.0-37.0); MEAN CORPUSCULAR VOLUME 89.4 fl (82.0-101.0); MEAN PLATELET VOLUME 9.3 fl (7.4-10.4); MONOCYTE # 0.6 10^3/ul (0.3-0.9); MONOCYTES % 14.4 % (0.0-11.0); NEUTROPHIL # 2.4 10^3/ul (1.6-7.5); NEUTROPHILS % 59.6 % (39.0-77.0); PLATELET COUNT 314 10^3/UL (140-415); RED BLOOD COUNT 3.95 10^6/ul (4.20-5.40); RED CELL DISTRIBUTION WIDTH 15.7 % (11.5-14.5); WHITE BLOOD COUNT 4.1 10^3/ul (4.8-10.8)
[2016-12-12] MEDS: PANTOPRAZOLE (EC) 40 MG TAB PO SCH (06:00)
[2016-12-12 06:21] LABS: CALCIUM 8.7 mg/dl (8.4-10.2); CREATININE 0.71 mg/dl (0.44-1.00); POTASSIUM 3.9 mmol/L (3.5-5.1)
[2016-12-12] MEDS ORDERED: HEPARIN 1000 UNITS/ML 10 ML INJ ONE (08:37)
[2016-12-12] MEDS ORDERED: SOD CHLORIDE 0.9% 500 ML ONE (08:38)
[2016-12-12] MEDS ORDERED: LIDOCAINE 2%/EPI 30 ML INJ ONE (08:38)
[2016-12-12] MEDS: ENOXAPARIN 40 MG/0.4 ML SYG SC SCH (09:00)
[2016-12-12] MEDS ORDERED: POLYMYXIN/BACITRACIN 1L IRRIG IRR ONE (09:00)
[2016-12-12] MEDS: SOD CHLORIDE 0.9% 1,000 ML IV SCH ×2 (09:00→15:06)
[2016-12-12] MEDS ORDERED: CEFAZOLIN 1 GM/50 ML (PMX) 50 ML IVPB ONE ×2 (09:00→10:10)
--- NOTE | 2016-12-12 09:10 | CONS ---
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 - Patient readmitted for cycle 3 Ifosfamide/taxol. Plan for a total of 4 cycles of ifosfamide/taxol followd by 4 cycles of carbo/taxol per discussion with Dr. Bueno. Side effects including N/V, fatigue, myelosuppression, allergic reaction, confusion, hemorrhagic cystitis discussed with the patient. - Check daily UA while receiving ifosfamide. Monitor for hemorrhagic cystitis. - Avoid benzodiazepines or ambien while receiving ifosfamide. Monitor for WARP PICKER symptoms or encephalopathy with ifosfamide. - Patient received decadron 20 mg PO 12 hours and 6 hours prior to paclitaxel - Hg now > 10 - colace, miralax prn constipation - zofran prn, added compazine and reglan prn nausea/vomiting. Will add akynzeo , non-formulary filled out. - pending port placement given non-functional PICC - outpatient neupogen and transfusions approved, patient may be able to discharged early next week after chemotherapy complete if nausea and vomiting controlled Chemo regimen Ifosfamide 1600 mg/mg2 IV once per week D1-3 Paclitaxel 135 mg/m2 IV over 3 hours D1 [place] 2000 mg IV over 12 hours once per day (15 minutes before ifosfamide) D1-3 Decadron 20 mg PO 12 hours and 6 hours prior to paclitaxel Neupogen 480 mcg subcutaneous once per day starting D4. Problems: Consultation Date/Type/Reason Admit Date/Time Dec 11, 2016 at 10:23 Initial Consult Date 12/11/16 Type of Consultation: Oncology Referring Provider: ARLENE CHOWDARY MD 24 HR Interval Summary Free Text/Dictation Doing well, no complaints. Pending port placement. Exam/Review of Systems Vital Signs Vitals Vital Signs Date Time Temp Pulse Resp B/P Pulse Ox O2 Delivery O2 Flow Rate FiO2 12/12/16 07:00 98.9 71 18 103/61 97 12/11/16 10:55 Room Air Intake and Output 12/11/16 12/11/16 12/12/16 15:00 23:00 07:00 Intake Total 120 ml Balance 120 ml Exam Constitutional: alert, oriented Psych: nl mood/affect, no complaints Head: normocephalic Eyes: nl conjunctiva ENMT: nl external ears & nose, nl lips & teeth Neck: non-tender, supple Respiratory: clear to auscultation, normal air movement Cardiovascular: regular rate and rhythm Gastrointestinal: soft Musculoskeletal: nl extremities to inspection, nl gait and stance Extremities: normal pulses Neurological: WARP PICKER II-XII intact Results Result Diagram: 12/12/16 04212/12/16 0420 Results 24 hrs Laboratory Tests Test 12/11/16 14:25 12/12/16 04:20 White Blood Count 4.2 #L 4.1 L Red Blood Count 3.84 L 3.95 L Hemoglobin 11.1 L 11.1 L Hematocrit 34.6 L 35.3 L Mean Corpuscular Volume 90.1 89.4 Mean Corpuscular Hemoglobin 28.9 L 28.1 L Mean Corpuscular Hemoglobin Concent 32.1 31.4 L Red Cell Distribution Width 15.7 H 15.7 H Platelet Count 321 314 Mean Platelet Volume 9.0 9.3 Neutrophils % 69.6 59.6 Lymphocytes % 17.7 24.4 Monocytes % 11.0 14.4 H Eosinophils % 0.5 0.7 Basophils % 1.0 0.7 Nucleated Red Blood Cells % 0.0 0.0 Neutrophils # 2.9 2.4 Lymphocytes # 0.7 L 1.0 Monocytes # 0.5 0.6 Eosinophils # 0.0 0.0 Basophils # 0.0 0.0 Nucleated Red Blood Cells # 0.0 0.0 Prothrombin Time 12.5 Prothrombin Time Ratio 1.0 INR International Normalized Ratio 0.93 Activated Partial Thromboplast Time 29.6 Sodium Level 141 143 Potassium Level 3.9 3.9 Chloride Level 106 107 Carbon Dioxide Level 31 30 Anion Gap 8 10 Blood Urea Nitrogen 16 14 Creatinine 0.75 0.71 Glucose Level 102 87 Calcium Level 8.7 8.7 Medications Medications Current Medications Dexamethasone 20 mg 20 mg Q6H PO ; Start 12/11/16 at 12:00; Status Future Hold Sodium Chloride (NS) 1,000 ml @ 50 mls/hr Q20H IV ; Start 12/11/16 at 12:00; Status Future Hold Enoxaparin Sodium (Lovenox) 40 mg DAILY SC Last administered on 12/11/16t 16:01 ; Admin Dose 40 MG; Start 12/11/16 at 13:00 Metoclopramide HCl (Reglan) 10 mg Q6H PRN IV NAUSEA AND/OR VOMITING; Start at 14:00 Acetaminophen (Tylenol Tab) 650 mg Q6H PRN PO PAIN LEVEL 1-3 OR FEVER; Start at 14:00 Acetaminophen/ Hydrocodone Bitart ([place] (5/325)) 1 tab Q6H PRN PO MODERATE PAIN LEVEL 4-6; Start 12/11/16 at 14:00 Morphine Sulfate (morphine) 2 mg Q4H PRN IV SEVERE PAIN LEVEL 7-10; Start 12/11 at 14:00 Pantoprazole (Protonix Tab) 40 mg DAILY@06 PO ; Start 12/12/16 at 06:00 Prochlorperazine 10 mg 10 mg Q4H PRN IV NAUSEA AND/OR VOMITING; Start 12/11/16 at 14:00 Cefazolin Sodium (Ancef 1 Gm/50 ml (Pmx)) 50 ml @ 100 mls/hr ONCE ONCE IVPB ; Start 12/12/16 at 09:00; Stop 12/12/16 at 09:29; Status UNV Bacitracin/ Polymyxin B Sulfate 250 ml 250 ml ONCE ONCE IRR ; Start 12/12/16 at 09:00; Stop 12/12/16 at 09:01; Status UNV Sodium Chloride (NS) 1,000 ml @ 30 mls/hr Q24H IV ; Start 12/12/16 at 09:00; Status UNV TOLINDA MD Dec 12, 2016 09:10
[2016-12-12 09:41] LABS: ALBUMIN 3.7 g/dl (3.3-4.9); BILIRUBIN,INDIRECT 0.1 mg/dl (0-1.1); BILIRUBIN,TOTAL 0.1 mg/dl (0.2-1.3); TOTAL PROTEIN 5.6 g/dl (6.1-8.1)
[2016-12-12] MEDS ORDERED: FENTAnyl 50 MCG/ML VIAL ONE (10:10)
[2016-12-12] MEDS ORDERED: MIDAZOLAM 1 MG/ML 2 ML INJ ONE (10:10)
--- NOTE | 2016-12-12 14:22 | RADRPT ---
PROCEDURE: FLUOROSCOPIC AND ULTRASONOGRAPHIC-GUIDED PLACEMENT OF RIGHT CHEST PORT. CLINICAL INDICATION: History of endometrial cancer. Venous access for chemotherapy. TECHNIQUE: INTRAPROCEDURE MEDICATIONS: PB antibiotic solution 40 cc applied topically. 1 gram Ancef intravenous ly, intra-op. IV Versed and Fentanyl per protocol. Informed consent was obtained. The procedure, risks, benefits, complications and alternatives were explained to the patient. Risks including bleeding, infection, and pneumothorax were explained. The patient understood and was willing to proceed. A procedural pause was performed. The patient's name, date of , and procedure to be performed w ere verified. The central line was inserted with all elements of maximal sterile barrier technique. All of the fol lowing were used: head covering, facial mask, sterile gown, sterile gloves, a large sterile sheet, h and hygiene, and 2% chlorhexidine for cutaneous antisepsis. The right neck and anterior/superior chest wall were prepped and draped in usual sterile fashion. Limited sonography of the right neck was then performed. Noted is a patent right internal jugular ve in. Following the local injection of 1% lidocaine, the right internal jugular vein was punctured under s onographic guidance with a 20-gauge needle through which a 0.018 inch floppy tip guidewire was advan rosalba into the superior vena cava with fluoroscopic guidance. The tract was dilated to 5 Danish and the wire was then replaced with a 0.035 in Amplatz guidewire. Serial dilatation was then performed and a 7 Danish peel away sheath was introduced. A site just inferior to the clavicle in the superior anterior right chest wall was localized. One pe rcent lidocaine was used as local anesthesia. A transverse 2.5 cm incision was made utilizing a 15 b lade scalpel. Utilizing blunt dissection a subcutaneous pocket was created inferior to the incision. The cavity was flushed with approximately 40 cc of PB antibiotic solution. The catheter was tunneled underneath the skin from the newly created pocket to the puncture site in the neck. The central line catheter was pulled through the tract. The catheter was then advanced thr ough the sheath until the tip was positioned in the right atrium. The peel-away sheath was removed. The catheter was flushed and clamped. The 6.6 Danish catheter was then connected to the Angiodynamics power port. The port was then placed into the pocket. Prior to closing the instrument and sponge count was verified and was correct. The subcutaneous tissue was closed with 3-0 Vicryl interrupted suture. The skin at the site of the pock et and in the neck was closed with 4-0 Vicryl suture in a running subcuticular technique. The port w as flushed with 1500 units of heparin in 1.5 cc utilizing a Hamm needle. The needle was removed. A dressing was applied. The patient tolerated procedure well. COMPARISON: None. FINDINGS: Ultrasound images were recorded and stored in the patient's medical record. Final radiographic images demonstrate the tip of the catheter in the upper right atrium. A total of 14.5 seconds of fluoroscopy time was used. The ultrasound images demonstrate the needle entering t he internal jugular vein. IMPRESSION: 1. Successful ultrasonographic and fluoroscopic guided placement of right chest power port. RPTAT: QQ .Kingston Felipe MD, Date Time Electronically viewed and signed by .Kingston Felipe MD, MD on 12/12/2016 14:21 .R/
--- NOTE | 2016-12-12 14:22 | RADRPT ---
PROCEDURE: Ultrasound guidance for placement of needle in right internal jugular vein. CLINICAL INDICATION: Venous access. TECHNIQUE: Prior to the procedure, informed consent was obtained. Risks including bleeding, infection, and pneu mothorax were explained to the patient. The patient understood and was willing to proceed. A procedu ral pause was performed. The patient's name, date of , and procedure to be performed were verif ied. The central line was inserted with all elements of maximal sterile barrier technique. All of th e following were used: head covering, facial mask, sterile gown, sterile gloves, a large sterile she et, hand hygiene, and 2% chlorhexidine for cutaneous antisepsis. The right neck and anterior/super ior chest wall was prepped and draped in usual sterile fashion. Limited sonography of the right neck was then performed. Noted is a patent right internal jugular ve in. Ultrasound images were recorded and stored in the patient's medical record. Following the local injection of Xylocaine, the right internal jugular vein was punctured under sono graphic guidance with a 20-gauge needle through which a 0.018 inch floppy tip guidewire was advanced into the superior vena cava. The patient tolerated the procedure well. The remainder of the proce dure was performed and dictated under separate cover. COMPARISON: None. FINDINGS: The ultrasound images demonstrate a patent right internal jugular vein. The subsequent images demon strate the needle entering the right internal jugular vein. IMPRESSION: 1. Ultrasound guidance for a needle placement in right internal jugular vein. RPTAT: QQ .Kingston Felipe MD, Date Time Electronically viewed and signed by .Kingston Felipe MD, MD on 12/12/2016 14:22 .R/
[2016-12-12] MEDS: DEXAMETHASONE 4 MG TAB PO SCH ×2 (15:06→21:41)
--- NOTE | 2016-12-12 15:29 | PN ---
Date/Time of Note Date/Time of Note DATE: 12/12/16 TIME: 15:27 Assessment/Plan VTE Prophylaxis VTE Prophylaxis Intervention: SCD's Lines/Catheters IV [facility] CATH Urinary Cath still in place: No Assessment/Plan Chief Complaint/Hosp Course Patient status post a right chest Port-A-Cath placement, remains hemodynamically stable. ASSESSMENT AND PLAN: 1. Stage IV endometrial cancer, status post total abdominal hysterectomy and bilateral salpingo-oophorectomy and rectosigmoid anastomosis in September 2016. The patient is admitted for a cycle [address] Logan is following in oncology consultation. 2. Gastritis by history. Continue Protonix for peptic ulcer disease prophylaxis. Further recommendations based on clinical course. Plan of care discussed with Dr. Richardson. Problems: Exam/Review of Systems Vital Signs Vitals Vital Signs Date Time Temp Pulse Resp B/P Pulse Ox O2 Delivery O2 Flow Rate FiO2 12/12/16 12:30 98.0 70 18 108/71 99 Room Air 12/12/16 10:50 2.0 Intake and Output 12/11/16 12/11/16 12/12/16 15:00 23:00 07:00 Intake Total 120 ml Balance 120 ml Exam Constitutional: alert Head: normocephalic Neck: supple Respiratory: clear to auscultation Cardiovascular: nl pulses Gastrointestinal: non-tender, soft Extremities: normal pulses Additional Comments Right chest permacath Results Result Diagram: 12/12/16 0420 12/12/16 0420 Results 24 hrs Laboratory Tests Test 12/12/16 04:20 White Blood Count 4.1 L Red Blood Count 3.95 L Hemoglobin 11.1 L Hematocrit 35.3 L Mean Corpuscular Volume 89.4 Mean Corpuscular Hemoglobin 28.1 L Mean Corpuscular Hemoglobin Concent 31.4 L Red Cell Distribution Width 15.7 H Platelet Count 314 Mean Platelet Volume 9.3 Neutrophils % 59.6 Lymphocytes % 24.4 Monocytes % 14.4 H Eosinophils % 0.7 Basophils % 0.7 Nucleated Red Blood Cells % 0.0 Neutrophils # 2.4 Lymphocytes # 1.0 Monocytes # 0.6 Eosinophils # 0.0 Basophils # 0.0 Nucleated Red Blood Cells # 0.0 Sodium Level 143 Potassium Level 3.9 Chloride Level 107 Carbon Dioxide Level 30 Anion Gap 10 Blood Urea Nitrogen 14 Creatinine 0.71 Glucose Level 87 Calcium Level 8.7 Total Bilirubin 0.1 L Direct Bilirubin 0.00 Indirect Bilirubin 0.1 Aspartate Amino Transf (AST/SGOT) 36 Alanine Aminotransferase (ALT/SGPT) 31 Alkaline Phosphatase 50 Total Protein 5.6 L Albumin 3.7 Medications Medications Current Medications Enoxaparin Sodium (Lovenox) 40 mg DAILY SC Last administered on 12/11/16 16:01 ; Admin Dose 40 MG; Start 12/11/16 at 13:00 Metoclopramide HCl (Reglan) 10 mg Q6H PRN IV NAUSEA AND/OR VOMITING; Start at 14:00 Acetaminophen (Tylenol Tab) 650 mg Q6H PRN PO PAIN LEVEL 1-3 OR FEVER; Start at 14:00 Acetaminophen/ Hydrocodone Bitart ([place] (5/325)) 1 tab Q6H PRN PO MODERATE PAIN LEVEL 4-6; Start 12/11/16 at 14:00 Morphine Sulfate (morphine) 2 mg Q4H PRN IV SEVERE PAIN LEVEL 7-10; Start 12/11 at 14:00 Pantoprazole (Protonix Tab) 40 mg DAILY@06 PO ; Start 12/12/16 at 06:00 Prochlorperazine 10 mg 10 mg Q4H PRN IV NAUSEA AND/OR VOMITING; Start 12/11/16 at 14:00 Sodium Chloride (NS) 1,000 ml @ 30 mls/hr Q24H IV ; Start 12/12/16 at 09:00 Dexamethasone 20 mg 20 mg Q6H PO Last administered on 12/12/16 15:06; Admin Dose 20 MG; Start 12/12/16 at 15:00; Stop 12/12/16 at 21:01 Sodium Chloride 1,000 ml @ 50 mls/hr Q20H IV Last administered on 12/12/16 15 :06; Admin Dose 50 MLS/HR; Start 12/12/16 at 15:00 Ondansetron HCl/ Dexamethasone/ Dextrose (Zofran Inj/ Decadron/D5W) 60.5 ml @ 252 mls/hr Q24H IV ; Start 12/13/16 at 02:30; Stop 12/15/16 at 02:45 Famotidine (Pepcid Iv) 20 mg Q24H IV ; Start 12/13/16 at 02:30; Stop 12/15/16 at 02:31 Diphenhydramine HCl (Benadryl) 25 mg ONCE IV ; Start 12/13/16 at 02:45; Stop at 02:46 Hydrocortisone (Solu-Cortef) 100 mg PRN PRN IV ALLERGYC RX X1; Start 12/13/16 at 03:00; Stop 12/15/16 at 12:00 Diphenhydramine HCl (Benadryl) 50 mg PRN PRN IV ALLERGIC REACTION; Start at 03:00; Stop 12/15/16 at 12:00 Filgrastim (Neupogen) 480 mcg DAILY@17 SC ; Start 12/16/16 at 17:00; Stop at 17:01 Non-Formulary Medication 1 ea ONCE PO ; Start 12/13/16 at 02:00; Stop 12/13/16 at 02:01 ELVIN TEIXEIRA Dec 12, 2016 15:29
[2016-12-12 17:11] LABS: ADD UMIC YES; UR BILIRUBIN (Dip) NEGATIVE (NEGATIVE); UR BLOOD (Dip) TRACE (NEGATIVE); UR CLARITY CLEAR (CLEAR); UR COLOR LT. YELLOW (YELLOW); UR GLUCOSE (Dip) NEGATIVE (NEGATIVE); UR KETONES (Dip) NEGATIVE (NEGATIVE); UR LEUKOCYTE ESTERASE (Dip) NEGATIVE (NEGATIVE); UR NITRITE (Dip) NEGATIVE (NEGATIVE); UR TOTAL PROTEIN (Dip) NEGATIVE (NEGATIVE); UR UROBILINOGEN (Dip) 0.2 E.U./dL (0.1-1.0)
[2016-12-12 17:18] LABS: UR SQUAMOUS EPITHELIAL CELL FEW; URINE RBCS 0-2 /HPF (0)
[2016-12-13] VITALS (11 sets, daily range): BP systolic 104–125; BP diastolic 56–73; PULSE 69–80; RESP 16–18
[2016-12-13] MEDS ORDERED: [UNRECOGNIZED DRUG - OTHER] PO SCH (02:00)
[2016-12-13] MEDS ORDERED: PALONOSETRON PO SCH (02:00)
[2016-12-13] MEDS: ONDANSETRON INJ 16 MG, DEXAMETHASONE 4 MG/ML 10 MG in DEXTROSE 5% 50 ML IV SCH (02:28)
[2016-12-13] MEDS: FAMOTIDINE 20 MG INJ IV SCH (02:28)
[2016-12-13] MEDS ORDERED: DIPHENHYDRAMINE 50 MG INJ IV SCH (02:45)
[2016-12-13] MEDS ORDERED: HYDROCORTISONE 100 MG INJ IV PRN (03:00)
[2016-12-13] MEDS ORDERED: DIPHENHYDRAMINE 50 MG INJ IV PRN (03:00)
[2016-12-13] MEDS ORDERED: SOD CHLORIDE 0.9% IV SCH (03:00)
[2016-12-13] MEDS ORDERED: PACLITAXEL IV SCH (03:00)
[2016-12-13 05:11] LABS: ADD SCAN DIFF NO
[2016-12-13 05:21] LABS: ABNORMAL IP MESSAGE 1; HEMATOCRIT 36.2 % (37.0-47.0); HEMOGLOBIN 11.6 g/dl (12.0-16.0); LYMPHOCYTES # 0.5 10^3/ul (0.8-2.9); LYMPHOCYTES % 8.8 % (15.0-51.0); MEAN CORPUSCULAR HEMOGLOBIN 28.4 pg (29.0-33.0); MEAN CORPUSCULAR VOLUME 88.7 fl (82.0-101.0); MEAN PLATELET VOLUME 9.6 fl (7.4-10.4); MONOCYTE # 0.1 10^3/ul (0.3-0.9); MONOCYTES % 1.5 % (0.0-11.0); NEUTROPHIL # 4.9 10^3/ul (1.6-7.5); NEUTROPHILS % 89.3 % (39.0-77.0); PLATELET COUNT 322 10^3/UL (140-415); RED BLOOD COUNT 4.08 10^6/ul (4.20-5.40); RED CELL DISTRIBUTION WIDTH 15.3 % (11.5-14.5); WHITE BLOOD COUNT 5.5 10^3/ul (4.8-10.8)
[2016-12-13 06:10] LABS: ALBUMIN/GLOBULIN RATIO 1.81; BILIRUBIN,INDIRECT 0.3 mg/dl (0-1.1); BILIRUBIN,TOTAL 0.3 mg/dl (0.2-1.3); CREATININE 0.58 mg/dl (0.44-1.00); POTASSIUM 4.1 mmol/L (3.5-5.1); TOTAL PROTEIN 6.2 g/dl (6.1-8.1)
[2016-12-13] MEDS: PANTOPRAZOLE (EC) 40 MG TAB PO SCH (06:48)
[2016-12-13] MEDS: SOD CHLORIDE 0.9% 1,000 ML IV SCH ×2 (08:13→11:00)
--- NOTE | 2016-12-13 09:11 | CONS ---
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 - Patient readmitted for cycle 3 Ifosfamide/taxol. Day 1 today, 12/13/16. Plan for a total of 4 cycles of ifosfamide/taxol followd by 4 cycles of carbo/taxol per discussion with Dr. Bueno. Side effects including N/V, fatigue, myelosuppression, allergic reaction, confusion, hemorrhagic cystitis discussed with the patient. - Check daily UA while receiving ifosfamide. Monitor for hemorrhagic cystitis. - Avoid benzodiazepines or ambien while receiving ifosfamide. Monitor for DIRECTOR OF INFECTION PREVENTION symptoms or encephalopathy with ifosfamide. - Patient received decadron 20 mg PO 12 hours and 6 hours prior to paclitaxel - Hg now > 10 - colace, miralax prn constipation - zofran prn, added compazine and reglan prn nausea/vomiting. Will add akynzeo , non-formulary filled out. - s/p port placement given non-functional PICC - outpatient neupogen and transfusions approved, patient may be able to discharged early next week after chemotherapy complete if nausea and vomiting controlled Chemo regimen Ifosfamide 1600 mg/mg2 IV once per week D1-3 Paclitaxel 135 mg/m2 IV over 3 hours D1 [place] 2000 mg IV over 12 hours once per day (15 minutes before ifosfamide) D1-3 Decadron 20 mg PO 12 hours and 6 hours prior to paclitaxel Neupogen 480 mcg subcutaneous once per day starting D4. Problems: Consultation Date/Type/Reason Admit Date/Time Dec 11, 2016 at 10:23 Initial Consult Date 12/11/16 Type of Consultation: Oncology Referring Provider: ARLENE CHOWDARY MD 24 HR Interval Summary Free Text/Dictation Doing well, no complaints, no nausea or vomiting. Started chemotherapy today. Exam/Review of Systems Vital Signs Vitals Vital Signs Date Time Temp Pulse Resp B/P Pulse Ox O2 Delivery O2 Flow Rate FiO2 12/13/16 08:06 97.4 75 16 114/70 100 12/13/16 05:48 Room Air 12/12/16 10:50 2.0 Intake and Output 12/12/16 12/12/16 12/13/16 15:00 23:00 07:00 Intake Total 1400 ml 1000 ml 1194.5 ml Output Total 900 ml 200 ml Balance 500 ml 800 ml 1194.5 ml Exam Constitutional: alert, oriented Psych: nl mood/affect, no complaints Head: normocephalic Eyes: nl conjunctiva ENMT: nl external ears & nose, nl lips & teeth Neck: non-tender, supple Respiratory: clear to auscultation, normal air movement Cardiovascular: regular rate and rhythm Gastrointestinal: soft Musculoskeletal: nl extremities to inspection, nl gait and stance Extremities: normal pulses Neurological: DIRECTOR OF INFECTION PREVENTION II-XII intact Results Result Diagram: 12/13/16 0430 12/13/16 0430 Results 24 hrs Laboratory Tests Test 12/12/16 16:20 12/13/16 04:30 Urine Color LT. YELLOW Urine Clarity CLEAR Urine pH 5.5 Urine Specific [place] 1.025 Urine Ketones NEGATIVE Urine Nitrite NEGATIVE Urine Bilirubin NEGATIVE Urine Urobilinogen 0.2 E.U./dL Urine Leukocyte Esterase NEGATIVE Urine Microscopic RBC 0-2 Urine Microscopic WBC 0-2 Urine Squamous Epithelial Cells FEW Urine Hemoglobin TRACE Urine Glucose NEGATIVE Urine Total Protein NEGATIVE White Blood Count 5.5 # Red Blood Count 4.08 L Hemoglobin 11.6 L Hematocrit 36.2 L Mean Corpuscular Volume 88.7 Mean Corpuscular Hemoglobin 28.4 L Mean Corpuscular Hemoglobin Concent 32.0 Red Cell Distribution Width 15.3 H Platelet Count 322 Mean Platelet Volume 9.6 Neutrophils % 89.3 H Lymphocytes % 8.8 L Monocytes % 1.5 Eosinophils % 0.0 Basophils % 0.0 Nucleated Red Blood Cells % 0.0 Neutrophils # 4.9 Lymphocytes # 0.5 L Monocytes # 0.1 L Eosinophils # 0.0 Basophils # 0.0 Nucleated Red Blood Cells # 0.0 Sodium Level 140 Potassium Level 4.1 Chloride Level 109 Carbon Dioxide Level 22 Anion Gap 13 Blood Urea Nitrogen 12 Creatinine 0.58 Glucose Level 152 Calcium Level 9.0 Total Bilirubin 0.3 Direct Bilirubin 0.00 Indirect Bilirubin 0.3 Aspartate Amino Transf (AST/SGOT) 31 Alanine Aminotransferase (ALT/SGPT) 26 Alkaline Phosphatase 54 Total Protein 6.2 Albumin 4.0 Globulin 2.20 Albumin/Globulin Ratio 1.81 Medications Medications Current Medications Enoxaparin Sodium (Lovenox) 40 mg DAILY SC Last administered on 12/11/16 16:01 ; Admin Dose 40 MG; Start 12/11/16 at 13:00 Metoclopramide HCl (Reglan) 10 mg Q6H PRN IV NAUSEA AND/OR VOMITING; Start at 14:00 Acetaminophen (Tylenol Tab) 650 mg Q6H PRN PO PAIN LEVEL 1-3 OR FEVER; Start at 14:00 Acetaminophen/ Hydrocodone Bitart ([place] (5/325)) 1 tab Q6H PRN PO MODERATE PAIN LEVEL 4-6; Start 12/11/16 at 14:00 Morphine Sulfate (morphine) 2 mg Q4H PRN IV SEVERE PAIN LEVEL 7-10; Start 12/11 at 14:00 Pantoprazole (Protonix Tab) 40 mg DAILY@06 PO Last administered on 12/13/16 06 :48; Admin Dose 40 MG; Start 12/12/16 at 06:00 Prochlorperazine 10 mg 10 mg Q4H PRN IV NAUSEA AND/OR VOMITING; Start 12/11/16 at 14:00 Sodium Chloride 1,000 ml @ 30 mls/hr Q24H IV Last administered on 12/13/16 08 :13; Admin Dose 30 MLS/HR; Start 12/12/16 at 09:00 Sodium Chloride 1,000 ml @ 50 mls/hr Q20H IV Last administered on 12/12/16 15 :06; Admin Dose 50 MLS/HR; Start 12/12/16 at 15:00 Ondansetron HCl/ Dexamethasone/ Dextrose (Zofran Inj/ Decadron/D5W) 60.5 ml @ 252 mls/hr Q24H IV Last administered on 12/13/16 02:28; Admin Dose 252 MLS/HR ; Start 12/13/16 at 02:30; Stop 12/15/16 at 02:45 Famotidine (Pepcid Iv) 20 mg Q24H IV Last administered on 12/13/16 02:28; Admin Dose 20 MG; Start 12/13/16 at 02:30; Stop 12/15/16 at 02:31 Hydrocortisone (Solu-Cortef) 100 mg PRN PRN IV ALLERGYC RX X1; Start 6/15/17 at 03:00; Stop 12/15/16 at 12:00 Diphenhydramine HCl (Benadryl) 50 mg PRN PRN IV ALLERGIC REACTION; Start at 03:00; Stop 12/15/16 at 12:00 Filgrastim 480 mcg 480 mcg DAILY@17 SC ; Start 12/16/16 at 17:00; Stop 12/25/16 at 17:01 Ifosfamide 2.704 gm/Sodium Chloride 250 ml @ 250 mls/hr 0615 IV ; Start at 06:15; Stop 12/15/16 at 07:14 [place]/Sodium Chloride ([place]/NS) 270 ml @ 22.5 mls/hr 06 IV ; Start 12/13/16 at 06:00; Stop 12/15/16 at 17:59 TOLINDA MD Dec 13, 2016 09:11
[2016-12-13] MEDS: ENOXAPARIN 40 MG/0.4 ML SYG SC SCH (09:24)
[2016-12-13] MEDS: SOD CHLORIDE 0.9% IV SCH ×2 (10:31→11:05)
[2016-12-13] MEDS: MESNA IV SCH (10:31)
[2016-12-13] MEDS: IFOSFAMIDE IV SCH (11:05)
[2016-12-13 13:20] LABS: ADD UMIC NO; UR BILIRUBIN (Dip) NEGATIVE (NEGATIVE); UR BLOOD (Dip) NEGATIVE (NEGATIVE); UR CLARITY CLEAR (CLEAR); UR COLOR LT. YELLOW (YELLOW); UR GLUCOSE (Dip) NEGATIVE (NEGATIVE); UR KETONES (Dip) NEGATIVE (NEGATIVE); UR LEUKOCYTE ESTERASE (Dip) NEGATIVE (NEGATIVE); UR NITRITE (Dip) NEGATIVE (NEGATIVE); UR TOTAL PROTEIN (Dip) NEGATIVE (NEGATIVE); UR UROBILINOGEN (Dip) 0.2 E.U./dL (0.1-1.0)
--- NOTE | 2016-12-13 14:58 | PN ---
Date/Time of Note Date/Time of Note DATE: 12/13/16 TIME: 14:56 Assessment/Plan VTE Prophylaxis VTE Prophylaxis Intervention: other Lines/Catheters IV C[facility]ter Type (from [facility]): [place] A Cath Urinary Cath still in place: No Assessment/Plan Assessment/Plan 1. Stage IV endometrial cancer, status post total abdominal hysterectomy and bilateral salpingo-oophorectomy and rectosigmoid anastomosis in September 2016. The patient is admitted for a cycle [address] Logan is following in oncology consultation. 2. Gastritis by history. Continue Protonix for peptic ulcer disease prophylaxis. Further recommendations based on clinical course. Plan of care discussed with Dr. Richardson. Subjective 24 Hr Interval Summary Free Text/Dictation sleeping, easily awakens, denies any new complaints, for chemo- tolerated well, afebrile, dw staff Constitutional: requiring IVF Respiratory: no complaints Cardiovascular: no complaints Gastrointestinal: no complaints Genitourinary: no complaints Musculoskeletal: no complaints Skin: no complaints Neurologic: no complaints Exam/Review of Systems Vital Signs Vitals Vital Signs Date Time Temp Pulse Resp B/P Pulse Ox O2 Delivery O2 Flow Rate FiO2 12/13/16 12:20 98.0 16 116/72 Room Air 12/13/16 10:50 70 12/13/16 08:06 100 12/12/16 10:50 2.0 Intake and Output 12/12/16 12/12/16 12/13/16 15:00 23:00 07:00 Intake Total 1400 ml 1000 ml 1194.5 ml Output Total 900 ml 200 ml Balance 500 ml 800 ml 1194.5 ml Exam Constitutional: alert, oriented, well developed Respiratory: clear to auscultation, normal air movement Cardiovascular: nl pulses, regular rate and rhythm Gastrointestinal: non-tender, soft Musculoskeletal: nl extremities to inspection Extremities: normal pulses Neurological: nl mental status, nl speech Results Result Diagram: 12/13/16 0430 12/13/16 0430 Results 24 hrs Laboratory Tests Test 12/12/16 16:20 12/13/16 04:30 12/13/16 13:00 Urine Color LT. YELLOW LT. YELLOW Urine Clarity CLEAR CLEAR Urine pH 5.5 6.0 Urine Specific [place] 1.025 1.025 Urine Ketones NEGATIVE NEGATIVE Urine Nitrite NEGATIVE NEGATIVE Urine Bilirubin NEGATIVE NEGATIVE Urine Urobilinogen 0.2 E.U./dL 0.2 E.U./dL Urine Leukocyte Esterase NEGATIVE NEGATIVE Urine Microscopic RBC 0-2 Urine Microscopic WBC 0-2 Urine Squamous Epithelial Cells FEW Urine Hemoglobin TRACE NEGATIVE Urine Glucose NEGATIVE NEGATIVE Urine Total Protein NEGATIVE NEGATIVE White Blood Count 5.5 # Red Blood Count 4.08 L Hemoglobin 11.6 L Hematocrit 36.2 L Mean Corpuscular Volume 88.7 Mean Corpuscular Hemoglobin 28.4 L Mean Corpuscular Hemoglobin Concent 32.0 Red Cell Distribution Width 15.3 H Platelet Count 322 Mean Platelet Volume 9.6 Neutrophils % 89.3 H Lymphocytes % 8.8 L Monocytes % 1.5 Eosinophils % 0.0 Basophils % 0.0 Nucleated Red Blood Cells % 0.0 Neutrophils # 4.9 Lymphocytes # 0.5 L Monocytes # 0.1 L Eosinophils # 0.0 Basophils # 0.0 Nucleated Red Blood Cells # 0.0 Sodium Level 140 Potassium Level 4.1 Chloride Level 109 Carbon Dioxide Level 22 Anion Gap 13 Blood Urea Nitrogen 12 Creatinine 0.58 Glucose Level 152 Calcium Level 9.0 Total Bilirubin 0.3 Direct Bilirubin 0.00 Indirect Bilirubin 0.3 Aspartate Amino Transf (AST/SGOT) 31 Alanine Aminotransferase (ALT/SGPT) 26 Alkaline Phosphatase 54 Total Protein 6.2 Albumin 4.0 Globulin 2.20 Albumin/Globulin Ratio 1.81 Medications Medications Current Medications Enoxaparin Sodium (Lovenox) 40 mg DAILY SC Last administered on 12/13/16 09:24 ; Admin Dose 40 MG; Start 12/11/16 at 13:00 Metoclopramide HCl (Reglan) 10 mg Q6H PRN IV NAUSEA AND/OR VOMITING; Start at 14:00 Acetaminophen (Tylenol Tab) 650 mg Q6H PRN PO PAIN LEVEL 1-3 OR FEVER; Start at 14:00 Acetaminophen/ Hydrocodone Bitart ([place] (5/325)) 1 tab Q6H PRN PO MODERATE PAIN LEVEL 4-6; Start 12/11/16 at 14:00 Morphine Sulfate (morphine) 2 mg Q4H PRN IV SEVERE PAIN LEVEL 7-10; Start 12/11 at 14:00 Pantoprazole (Protonix Tab) 40 mg DAILY@06 PO Last administered on 12/13/16 06 :48; Admin Dose 40 MG; Start 12/12/16 at 06:00 Prochlorperazine 10 mg 10 mg Q4H PRN IV NAUSEA AND/OR VOMITING; Start 12/11/16 at 14:00 Sodium Chloride 1,000 ml @ 30 mls/hr Q24H IV Last administered on 12/13/16 08 :13; Admin Dose 30 MLS/HR; Start 12/12/16 at 09:00 Sodium Chloride 1,000 ml @ 50 mls/hr Q20H IV Last administered on 12/12/16 15 :06; Admin Dose 50 MLS/HR; Start 12/12/16 at 15:00 Ondansetron HCl/ Dexamethasone/ Dextrose (Zofran Inj/ Decadron/D5W) 60.5 ml @ 252 mls/hr Q24H IV Last administered on 12/13/16 02:28; Admin Dose 252 MLS/HR ; Start 12/13/16 at 02:30; Stop 12/15/16 at 02:45 Famotidine (Pepcid Iv) 20 mg Q24H IV Last administered on 12/13/16 02:28; Admin Dose 20 MG; Start 12/13/16 at 02:30; Stop 12/15/16 at 02:31 Hydrocortisone (Solu-Cortef) 100 mg PRN PRN IV ALLERGYC RX X1; Start 12/13/16 at 03:00; Stop 12/15/16 at 12:00 Diphenhydramine HCl (Benadryl) 50 mg PRN PRN IV ALLERGIC REACTION; Start at 03:00; Stop 12/15/16 at 12:00 Filgrastim 480 mcg 480 mcg DAILY@17 SC ; Start 12/16/16 at 17:00; Stop 12/25/16 at 17:01 Ifosfamide 2.704 gm/Sodium Chloride 250 ml @ 250 mls/hr 0615 IV Last administered on 12/13/16 11:05; Admin Dose 250 MLS/HR; Start 12/13/16 at 06:15 ; Stop 12/15/16 at 07:14 [place]/Sodium Chloride ([place]/NS) 270 ml @ 22.5 mls/hr 06 IV Last administered on 12/13/16 10:31; Admin Dose 22.5 MLS/HR; Start 12/13/16 at 06:00; Stop at 17:59 LATRICIA GABRIEL Dec 13, 2016 14:58
[2016-12-14] MEDS: SOD CHLORIDE 0.9% 1,000 ML IV SCH ×3 (00:17→15:20)
[2016-12-14] MEDS: FAMOTIDINE 20 MG INJ IV SCH ×2 (02:30→23:43)
[2016-12-14] MEDS: ONDANSETRON INJ 16 MG, DEXAMETHASONE 4 MG/ML 10 MG in DEXTROSE 5% 50 ML IV SCH (02:30)
[2016-12-14 05:09] LABS: ADD SCAN DIFF NO
[2016-12-14 05:32] LABS: ABNORMAL IP MESSAGE 1; HEMATOCRIT 33.1 % (37.0-47.0); HEMOGLOBIN 10.6 g/dl (12.0-16.0); LYMPHOCYTES # 0.3 10^3/ul (0.8-2.9); LYMPHOCYTES % 2.4 % (15.0-51.0); MEAN CORPUSCULAR HEMOGLOBIN 28.3 pg (29.0-33.0); MEAN CORPUSCULAR VOLUME 88.5 fl (82.0-101.0); MEAN PLATELET VOLUME 10.1 fl (7.4-10.4); MONOCYTE # 0.2 10^3/ul (0.3-0.9); MONOCYTES % 1.4 % (0.0-11.0); NEUTROPHIL # 12.5 10^3/ul (1.6-7.5); NEUTROPHILS % 95.7 % (39.0-77.0); PLATELET COUNT 274 10^3/UL (140-415); RED BLOOD COUNT 3.74 10^6/ul (4.20-5.40); RED CELL DISTRIBUTION WIDTH 15.7 % (11.5-14.5)
[2016-12-14 05:48] LABS: ALBUMIN 3.4 g/dl (3.3-4.9); ALBUMIN/GLOBULIN RATIO 4.25; BILIRUBIN,INDIRECT 0.1 mg/dl (0-1.1); BILIRUBIN,TOTAL 0.1 mg/dl (0.2-1.3); CALCIUM 8.1 mg/dl (8.4-10.2); CREATININE 0.63 mg/dl (0.44-1.00); POTASSIUM 3.9 mmol/L (3.5-5.1); TOTAL PROTEIN 4.2 g/dl (6.1-8.1)
[2016-12-14 05:52] VITALS: BP 111/62; PULSE 68; RESP 17
[2016-12-14] MEDS: PANTOPRAZOLE (EC) 40 MG TAB PO SCH (05:54)
[2016-12-14] MEDS: MESNA IV SCH (05:55)
[2016-12-14] MEDS: SOD CHLORIDE 0.9% IV SCH ×2 (05:55→06:14)
[2016-12-14 05:58] LABS: CALCIUM 8.3 mg/dl (8.4-10.2); CREATININE 0.61 mg/dl (0.44-1.00); POTASSIUM 4.3 mmol/L (3.5-5.1)
[2016-12-14] MEDS: IFOSFAMIDE IV SCH (06:14)
[2016-12-14 06:25] VITALS: BP 120/63; PULSE 63; RESP 17
[2016-12-14 08:24] VITALS: BP 116/61; PULSE 79; RESP 16
[2016-12-14] MEDS: ENOXAPARIN 40 MG/0.4 ML SYG SC SCH (08:39)
[2016-12-14 10:05] LABS: ADD UMIC NO; UR BILIRUBIN (Dip) NEGATIVE (NEGATIVE); UR BLOOD (Dip) NEGATIVE (NEGATIVE); UR CLARITY CLEAR (CLEAR); UR COLOR LT. YELLOW (YELLOW); UR GLUCOSE (Dip) NEGATIVE (NEGATIVE); UR KETONES (Dip) TRACE (NEGATIVE); UR LEUKOCYTE ESTERASE (Dip) NEGATIVE (NEGATIVE); UR NITRITE (Dip) NEGATIVE (NEGATIVE); UR TOTAL PROTEIN (Dip) NEGATIVE (NEGATIVE); UR UROBILINOGEN (Dip) 0.2 E.U./dL (0.1-1.0)
--- NOTE | 2016-12-14 10:19 | CONS ---
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 - Patient readmitted for cycle 3 Ifosfamide/taxol. Day 1 was on 12/13/16. Plan for a total of 4 cycles of ifosfamide/taxol followd by 4 cycles of carbo/taxol per discussion with Dr. Bueno. Side effects including N/V, fatigue, myelosuppression, allergic reaction, confusion, hemorrhagic cystitis discussed with the patient. Plan to obtain restaging scans after 4th cycle or sooner if symptoms. - Check daily UA while receiving ifosfamide. Monitor for hemorrhagic cystitis. - Avoid benzodiazepines or ambien while receiving ifosfamide. Monitor for WET PROCESS OPERATOR symptoms or encephalopathy with ifosfamide. - Patient received decadron 20 mg PO 12 hours and 6 hours prior to paclitaxel - Hg now > 10 - colace, miralax prn constipation - zofran prn, added compazine and reglan prn nausea/vomiting. Will add akynzeo , non-formulary filled out. - s/p port placement given non-functional PICC - outpatient neupogen and transfusions approved, patient may be able to discharged early next week after chemotherapy complete if nausea and vomiting controlled Chemo regimen Ifosfamide 1600 mg/mg2 IV once per week D1-3 Paclitaxel 135 mg/m2 IV over 3 hours D1 [place] 2000 mg IV over 12 hours once per day (15 minutes before ifosfamide) D1-3 Decadron 20 mg PO 12 hours and 6 hours prior to paclitaxel Neupogen 480 mcg subcutaneous once per day starting D4. Problems: Consultation Date/Type/Reason Admit Date/Time Dec 11, 2016 at 10:23 Initial Consult Date 12/11/16 Type of Consultation: Oncology Referring Provider: ARLENE CHOWDARY MD 24 HR Interval Summary Free Text/Dictation Patient doing well, no issues, no nausea, no hematuria or confusion. Exam/Review of Systems Vital Signs Vitals Vital Signs Date Time Temp Pulse Resp B/P Pulse Ox O2 Delivery O2 Flow Rate FiO2 12/14/16 08:24 97.7 79 16 116/61 98 Room Air 12/12/16 10:50 2.0 Intake and Output 12/13/16 12/13/16 12/14/16 15:00 23:00 07:00 Intake Total 1490 ml 1530.0 ml 540.5 ml Output Total 1200 ml 900 ml 1100 ml Balance 290 ml 630.0 ml -559.5 ml Exam Constitutional: alert, oriented Psych: nl mood/affect, no complaints Head: normocephalic Eyes: nl conjunctiva ENMT: nl external ears & nose, nl lips & teeth Neck: non-tender, supple Respiratory: clear to auscultation, normal air movement Cardiovascular: regular rate and rhythm Gastrointestinal: soft Musculoskeletal: nl extremities to inspection, nl gait and stance Extremities: normal pulses Neurological: WET PROCESS OPERATOR II-XII intact Results Result Diagram: 12/14/16 0435 12/14/16 0435 Results 24 hrs Laboratory Tests Test 12/13/16 13:00 12/14/16 04:26 12/14/16 04:35 Urine Color LT. YELLOW Urine Clarity CLEAR Urine pH 6.0 Urine Specific [place] 1.025 Urine Ketones NEGATIVE Urine Nitrite NEGATIVE Urine Bilirubin NEGATIVE Urine Urobilinogen 0.2 E.U./dL Urine Leukocyte Esterase NEGATIVE Urine Hemoglobin NEGATIVE Urine Glucose NEGATIVE Urine Total Protein NEGATIVE Sodium Level 143 143 Potassium Level 3.9 4.3 Chloride Level 112 H 112 H Carbon Dioxide Level 25 25 Anion Gap 10 10 Blood Urea Nitrogen 17 17 Creatinine 0.63 0.61 Glucose Level 111 # 105 Calcium Level 8.1 L 8.3 L Total Bilirubin 0.1 L Direct Bilirubin 0.00 Indirect Bilirubin 0.1 Aspartate Amino Transf (AST/SGOT) 40 Alanine Aminotransferase (ALT/SGPT) 40 Alkaline Phosphatase 47 Total Protein 4.2 #L Albumin 3.4 Globulin 0.80 L Albumin/Globulin Ratio 4.25 White Blood Count 13.0 #H Red Blood Count 3.74 L Hemoglobin 10.6 L Hematocrit 33.1 L Mean Corpuscular Volume 88.5 Mean Corpuscular Hemoglobin 28.3 L Mean Corpuscular Hemoglobin Concent 32.0 Red Cell Distribution Width 15.7 H Platelet Count 274 Mean Platelet Volume 10.1 Neutrophils % 95.7 H Lymphocytes % 2.4 L Monocytes % 1.4 Eosinophils % 0.0 Basophils % 0.0 Nucleated Red Blood Cells % 0.0 Neutrophils # 12.5 H Lymphocytes # 0.3 L Monocytes # 0.2 L Eosinophils # 0.0 Basophils # 0.0 Nucleated Red Blood Cells # 0.0 Medications Medications Current Medications Enoxaparin Sodium (Lovenox) 40 mg DAILY SC Last administered on 12/14/16 08:39 ; Admin Dose 40 MG; Start 12/11/16 at 13:00 Metoclopramide HCl (Reglan) 10 mg Q6H PRN IV NAUSEA AND/OR VOMITING; Start at 14:00 Acetaminophen (Tylenol Tab) 650 mg Q6H PRN PO PAIN LEVEL 1-3 OR FEVER; Start at 14:00 Acetaminophen/ Hydrocodone Bitart ([place] (5/325)) 1 tab Q6H PRN PO MODERATE PAIN LEVEL 4-6; Start 12/11/16 at 14:00 Morphine Sulfate (morphine) 2 mg Q4H PRN IV SEVERE PAIN LEVEL 7-10; Start 12/11 at 14:00 Pantoprazole (Protonix Tab) 40 mg DAILY@06 PO Last administered on 12/14/16 05 :54; Admin Dose 40 MG; Start 12/12/16 at 06:00 Prochlorperazine 10 mg 10 mg Q4H PRN IV NAUSEA AND/OR VOMITING; Start 12/11/16 at 14:00 Sodium Chloride 1,000 ml @ 30 mls/hr Q24H IV Last administered on 12/13/16 08 :13; Admin Dose 30 MLS/HR; Start 12/12/16 at 09:00 Sodium Chloride 1,000 ml @ 50 mls/hr Q20H IV Last administered on 12/14/16 00 :17; Admin Dose 50 MLS/HR; Start 12/12/16 at 15:00 Ondansetron HCl/ Dexamethasone/ Dextrose (Zofran Inj/ Decadron/D5W) 60.5 ml @ 252 mls/hr Q24H IV Last administered on 12/14/16 02:30; Admin Dose 252 MLS/HR ; Start 12/13/16 at 02:30; Stop 12/15/16 at 02:45 Famotidine (Pepcid Iv) 20 mg Q24H IV Last administered on 12/14/16 02:30; Admin Dose 20 MG; Start 12/13/16 at 02:30; Stop 12/15/16 at 02:31 Hydrocortisone (Solu-Cortef) 100 mg PRN PRN IV ALLERGYC RX X1; Start 12/13/16 at 03:00; Stop 12/15/16 at 12:00 Diphenhydramine HCl (Benadryl) 50 mg PRN PRN IV ALLERGIC REACTION; Start at 03:00; Stop 12/15/16 at 12:00 Filgrastim 480 mcg 480 mcg DAILY@17 SC ; Start 12/16/16 at 17:00; Stop 12/25/16 at 17:01 Ifosfamide 2.704 gm/Sodium Chloride 250 ml @ 250 mls/hr 0615 IV Last administered on 12/14/16t 06:14; Admin Dose 250 MLS/HR; Start 12/13/16 at 06:15 ; Stop 12/15/16 at 07:14 [place]/Sodium Chloride ([place]/NS) 270 ml @ 22.5 mls/hr 06 IV Last administered on 12/14/16t 05:55; Admin Dose 22.5 MLS/HR; Start 12/13/16 at 06:00; Stop at 17:59 TOLINDA MD Dec 14, 2016 10:19
[2016-12-14 12:37] VITALS: BP 118/66; PULSE 67; RESP 16
--- NOTE | 2016-12-14 17:44 | PN ---
Date/Time of Note Date/Time of Note DATE: 12/14/16 TIME: 17:43 Assessment/Plan VTE Prophylaxis VTE Prophylaxis Intervention: SCD's Lines/Catheters IV [facility]from [facility] PORT-A-CATH Urinary Cath still in place: No Assessment/Plan Chief Complaint/Hosp Course Patient is status post chemotherapy today, denies any nausea vomiting, remains hemodynamically stable. ASSESSMENT AND PLAN: 1. Stage IV endometrial cancer, status post total abdominal hysterectomy and bilateral salpingo-oophorectomy and rectosigmoid anastomosis in September 2016. Dr. Hoang is following in oncology consultation. Continue chemotherapy per oncology. 2. Gastritis by history. Continue Protonix for peptic ulcer disease prophylaxis. Further recommendations based on clinical course. Plan of care discussed with Dr. Richardson. Problems: Exam/Review of Systems Vital Signs Vitals Vital Signs Date Time Temp Pulse Resp B/P Pulse Ox O2 Delivery O2 Flow Rate FiO2 12/14/16 12:37 98.3 67 16 118/66 98 Room Air 12/12/16 10:50 2.0 Intake and Output 12/13/16 12/13/16 12/14/16 15:00 23:00 07:00 Intake Total 1490 ml 1530.0 ml 540.5 ml Output Total 1200 ml 900 ml 1100 ml Balance 290 ml 630.0 ml -559.5 ml Exam Constitutional: alert Head: normocephalic Neck: supple Respiratory: clear to auscultation Cardiovascular: nl pulses Gastrointestinal: non-tender, soft Extremities: normal pulses Additional Comments Right chest permacath Results Result Diagram: 12/14/16 0435 12/14/16 0435 Results 24 hrs Laboratory Tests Test 12/14/16 04:26 12/14/16 04:35 12/14/16 06:30 Sodium Level 143 143 Potassium Level 3.9 4.3 Chloride Level 112 H 112 H Carbon Dioxide Level 25 25 Anion Gap 10 10 Blood Urea Nitrogen 17 17 Creatinine 0.63 0.61 Glucose Level 111 # 105 Calcium Level 8.1 L 8.3 L Total Bilirubin 0.1 L Direct Bilirubin 0.00 Indirect Bilirubin 0.1 Aspartate Amino Transf (AST/SGOT) 40 Alanine Aminotransferase (ALT/SGPT) 40 Alkaline Phosphatase 47 Total Protein 4.2 #L Albumin 3.4 Globulin 0.80 L Albumin/Globulin Ratio 4.25 White Blood Count 13.0 #H Red Blood Count 3.74 L Hemoglobin 10.6 L Hematocrit 33.1 L Mean Corpuscular Volume 88.5 Mean Corpuscular Hemoglobin 28.3 L Mean Corpuscular Hemoglobin Concent 32.0 Red Cell Distribution Width 15.7 H Platelet Count 274 Mean Platelet Volume 10.1 Neutrophils % 95.7 H Lymphocytes % 2.4 L Monocytes % 1.4 Eosinophils % 0.0 Basophils % 0.0 Nucleated Red Blood Cells % 0.0 Neutrophils # 12.5 H Lymphocytes # 0.3 L Monocytes # 0.2 L Eosinophils # 0.0 Basophils # 0.0 Nucleated Red Blood Cells # 0.0 Urine Color LT. YELLOW Urine Clarity CLEAR Urine pH 6.0 Urine Specific [place] 1.020 Urine Ketones TRACE H Urine Nitrite NEGATIVE Urine Bilirubin NEGATIVE Urine Urobilinogen 0.2 E.U./dL Urine Leukocyte Esterase NEGATIVE Urine Hemoglobin NEGATIVE Urine Glucose NEGATIVE Urine Total Protein NEGATIVE Medications Medications Current Medications Enoxaparin Sodium (Lovenox) 40 mg DAILY SC Last administered on 12/14/16 08:39 ; Admin Dose 40 MG; Start 12/11/16 at 13:00 Metoclopramide HCl (Reglan) 10 mg Q6H PRN IV NAUSEA AND/OR VOMITING; Start at 14:00 Acetaminophen (Tylenol Tab) 650 mg Q6H PRN PO PAIN LEVEL 1-3 OR FEVER; Start at 14:00 Acetaminophen/ Hydrocodone Bitart ([place] (5/325)) 1 tab Q6H PRN PO MODERATE PAIN LEVEL 4-6; Start 12/11/16 at 14:00 Morphine Sulfate (morphine) 2 mg Q4H PRN IV SEVERE PAIN LEVEL 7-10; Start 12/11 at 14:00 Pantoprazole (Protonix Tab) 40 mg DAILY@06 PO Last administered on 12/14/16 05 :54; Admin Dose 40 MG; Start 12/12/16 at 06:00 Prochlorperazine 10 mg 10 mg Q4H PRN IV NAUSEA AND/OR VOMITING; Start 12/11/16 at 14:00 Sodium Chloride 1,000 ml @ 30 mls/hr Q24H IV Last administered on 12/13/16 08 :13; Admin Dose 30 MLS/HR; Start 12/12/16 at 09:00 Sodium Chloride 1,000 ml @ 50 mls/hr Q20H IV Last administered on 12/14/16 15 :20; Admin Dose 50 MLS/HR; Start 12/12/16 at 15:00 Ondansetron HCl/ Dexamethasone/ Dextrose (Zofran Inj/ Decadron/D5W) 60.5 ml @ 252 mls/hr Q24H IV Last administered on 12/14/16 02:30; Admin Dose 252 MLS/HR ; Start 12/13/16 at 02:30; Stop 12/15/16 at 02:45 Famotidine (Pepcid Iv) 20 mg Q24H IV Last administered on 12/14/16 02:30; Admin Dose 20 MG; Start 12/13/16 at 02:30; Stop 12/15/16 at 02:31 Hydrocortisone (Solu-Cortef) 100 mg PRN PRN IV ALLERGYC RX X1; Start 12/13/16 at 03:00; Stop 12/15/16 at 12:00 Diphenhydramine HCl (Benadryl) 50 mg PRN PRN IV ALLERGIC REACTION; Start at 03:00; Stop 12/15/16 at 12:00 Filgrastim 480 mcg 480 mcg DAILY@17 SC ; Start 12/16/16 at 17:00; Stop 12/25/16 at 17:01 Ifosfamide 2.704 gm/Sodium Chloride 250 ml @ 250 mls/hr 0615 IV Last administered on 12/14/16 06:14; Admin Dose 250 MLS/HR; Start 12/13/16 at 06:15 ; Stop 12/15/16 at 07:14 [place]/Sodium Chloride ([place]/NS) 270 ml @ 22.5 mls/hr 06 IV Last administered on 12/14/16 05:55; Admin Dose 22.5 MLS/HR; Start 12/13/16 at 06:00; Stop at 17:59 ELVIN TEIXEIRA Dec 14, 2016 17:44
[2016-12-14 20:21] VITALS: BP 113/61; RESP 22
[2016-12-15] VITALS (7 sets, daily range): BP systolic 99–131; BP diastolic 59–77; PULSE 56–63; RESP 16–18
[2016-12-15 05:03] LABS: ADD SCAN DIFF NO
[2016-12-15 05:15] LABS: ABNORMAL IP MESSAGE 1; BASOPHILS % 0.1 % (0.0-2.0); HEMATOCRIT 32.6 % (37.0-47.0); HEMOGLOBIN 10.3 g/dl (12.0-16.0); LYMPHOCYTES # 0.6 10^3/ul (0.8-2.9); LYMPHOCYTES % 5.3 % (15.0-51.0); MEAN CORPUSCULAR HGB CONC 31.6 g/dl (32.0-37.0); MEAN CORPUSCULAR VOLUME 88.6 fl (82.0-101.0); MEAN PLATELET VOLUME 10.3 fl (7.4-10.4); MONOCYTE # 0.2 10^3/ul (0.3-0.9); MONOCYTES % 2.2 % (0.0-11.0); NEUTROPHIL # 9.8 10^3/ul (1.6-7.5); NEUTROPHILS % 91.7 % (39.0-77.0); PLATELET COUNT 255 10^3/UL (140-415); RED BLOOD COUNT 3.68 10^6/ul (4.20-5.40); WHITE BLOOD COUNT 10.6 10^3/ul (4.8-10.8)
[2016-12-15] MEDS ORDERED: ONDANSETRON IVPB SCH (05:30)
[2016-12-15] MEDS ORDERED: DEXAMETHASONE IVPB SCH (05:30)
[2016-12-15] MEDS ORDERED: [UNRECOGNIZED DRUG - OTHER] IVPB SCH (05:30)
[2016-12-15] MEDS ORDERED: FAMOTIDINE IVPB SCH (05:30)
[2016-12-15 05:33] LABS: ALBUMIN 2.8 g/dl (3.3-4.9); ALBUMIN/GLOBULIN RATIO 1.47; BILIRUBIN,INDIRECT 0.4 mg/dl (0-1.1); BILIRUBIN,TOTAL 0.4 mg/dl (0.2-1.3); CALCIUM 8.2 mg/dl (8.4-10.2); CREATININE 0.58 mg/dl (0.44-1.00); POTASSIUM 3.6 mmol/L (3.5-5.1); TOTAL PROTEIN 4.7 g/dl (6.1-8.1)
[2016-12-15] MEDS: SOD CHLORIDE 0.9% IV SCH ×2 (06:02→06:21)
[2016-12-15] MEDS: MESNA IV SCH (06:02)
[2016-12-15] MEDS: PANTOPRAZOLE (EC) 40 MG TAB PO SCH (06:05)
[2016-12-15] MEDS: IFOSFAMIDE IV SCH (06:21)
[2016-12-15] MEDS: SOD CHLORIDE 0.9% 1,000 ML IV SCH ×3 (09:00→09:16)
[2016-12-15] MEDS: ENOXAPARIN 40 MG/0.4 ML SYG SC SCH (09:13)
--- NOTE | 2016-12-15 20:44 | PN ---
Date/Time of Note Date/Time of Note DATE: 12/15/16 TIME: 17:27 Assessment/Plan Lines/Catheters IV Catheter Type (from [facility]rs): port-a-cath Urinary Cath still in place: No Assessment/Plan Assessment/Plan 1. Stage IV endometrial cancer, status post total abdominal hysterectomy and bilateral salpingo-oophorectomy and rectosigmoid anastomosis in September 2016. Dr. Hoang is following in oncology consultation. Continue chemotherapy per oncology. 2. Gastritis by history. Continue Protonix for peptic ulcer disease prophylaxis. Further recommendations based on clinical course. Plan of care discussed with Dr. Richardson. Subjective 24 Hr Interval Summary Free Text/Dictation sp last chemo today. had c/o headache, nausea- better after medication. feels better now, ambulated in hallway. dw staff Constitutional: improved, requiring IVF Respiratory: no complaints Gastrointestinal: no complaints Genitourinary: no complaints Musculoskeletal: no complaints Exam/Review of Systems Vital Signs Vitals Vital Signs Date Time Temp Pulse Resp B/P Pulse Ox O2 Delivery O2 Flow Rate FiO2 12/15/16 07:47 98.2 63 16 129/77 95 Room Air 12/12/16 10:50 2.0 Intake and Output 12/14/16 12/14/16 12/15/16 15:00 23:00 07:00 Intake Total 250 ml 2390 ml 800 ml Output Total 1300 ml 1450 ml Balance 250 ml 1090 ml -650 ml Exam Constitutional: alert, oriented, well developed Respiratory: clear to auscultation, normal air movement Cardiovascular: nl pulses, regular rate and rhythm Gastrointestinal: non-tender, soft Musculoskeletal: nl extremities to inspection Extremities: normal pulses Neurological: nl mental status, nl speech Results Result Diagram: 12/15/16 0428 12/15/16 0428 Results 24 hrs Laboratory Tests Test 12/15/16 04:28 White Blood Count 10.6 Red Blood Count 3.68 L Hemoglobin 10.3 L Hematocrit 32.6 L Mean Corpuscular Volume 88.6 Mean Corpuscular Hemoglobin 28.0 L Mean Corpuscular Hemoglobin Concent 31.6 L Red Cell Distribution Width 16.0 H Platelet Count 255 Mean Platelet Volume 10.3 Neutrophils % 91.7 H Lymphocytes % 5.3 L Monocytes % 2.2 Eosinophils % 0.0 Basophils % 0.1 Nucleated Red Blood Cells % 0.0 Neutrophils # 9.8 H Lymphocytes # 0.6 L Monocytes # 0.2 L Eosinophils # 0.0 Basophils # 0.0 Nucleated Red Blood Cells # 0.0 Sodium Level 141 Potassium Level 3.6 Chloride Level 109 Carbon Dioxide Level 26 Anion Gap 10 Blood Urea Nitrogen 13 Creatinine 0.58 Glucose Level 79 Calcium Level 8.2 L Total Bilirubin 0.4 Direct Bilirubin 0.00 Indirect Bilirubin 0.4 Aspartate Amino Transf (AST/SGOT) 46 Alanine Aminotransferase (ALT/SGPT) 44 Alkaline Phosphatase 46 Total Protein 4.7 L Albumin 2.8 L Globulin 1.90 Albumin/Globulin Ratio 1.47 Medications Medications Current Medications Enoxaparin Sodium (Lovenox) 40 mg DAILY SC Last administered on 12/15/16 09:13 ; Admin Dose 40 MG; Start 12/11/16 at 13:00 Metoclopramide HCl (Reglan) 10 mg Q6H PRN IV NAUSEA AND/OR VOMITING; Start at 14:00 Acetaminophen (Tylenol Tab) 650 mg Q6H PRN PO PAIN LEVEL 1-3 OR FEVER Last administered on 12/15/16 07:55; Admin Dose 650 MG; Start 12/11/16 at 14:00 Acetaminophen/ Hydrocodone Bitart ([place] (5/325)) 1 tab Q6H PRN PO MODERATE PAIN LEVEL 4-6; Start 12/11/16 at 14:00 Morphine Sulfate (morphine) 2 mg Q4H PRN IV SEVERE PAIN LEVEL 7-10; Start 12/11 at 14:00 Pantoprazole (Protonix Tab) 40 mg DAILY@06 PO Last administered on 12/15/16 06 :05; Admin Dose 40 MG; Start 12/12/16 at 06:00 Prochlorperazine 10 mg 10 mg Q4H PRN IV NAUSEA AND/OR VOMITING; Start 12/11/16 at 14:00 Sodium Chloride 1,000 ml @ 30 mls/hr Q24H IV Last administered on 12/15/16 09 :08; Admin Dose 30 MLS/HR; Start 12/12/16 at 09:00 Sodium Chloride (NS) 1,000 ml @ 50 mls/hr Q20H IV Last administered on 09:16; Admin Dose 50 MLS/HR; Start 12/12/16 at 15:00 Filgrastim 480 mcg 480 mcg DAILY@17 SC ; Start 12/16/16 at 17:00; Stop 12/25/16 at 17:01 [place]/Sodium Chloride ([place]/NS) 270 ml @ 22.5 mls/hr 06 IV Last administered on 12/15/16t 06:02; Admin Dose 22.5 MLS/HR; Start 12/13/16 at 06:00; Stop at 17:59 LATRICIA GABRIEL Dec 15, 2016 17:27
--- NOTE | 2016-12-15 20:45 | PN ---
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 Day 1 was on 12/13/16. Plan for a total of 4 cycles of ifosfamide/taxol followd by 4 cycles of carbo/taxol per discussion with Dr. Bueno. Side effects including N/V, fatigue, myelosuppression, allergic reaction, confusion, hemorrhagic cystitis discussed with the patient. Plan to obtain restaging scans after 4th cycle or sooner if symptoms. - Check daily UA while receiving ifosfamide. Monitor for hemorrhagic cystitis. - Avoid benzodiazepines or ambien while receiving ifosfamide. Monitor for REVENUE CYCLE ANALYST symptoms or encephalopathy with ifosfamide. - Patient received decadron 20 mg PO 12 hours and 6 hours prior to paclitaxel hgb10.3 - zofran prn, added compazine and reglan prn nausea/vomiting. - s/p port placement - outpatient neupogen and transfusions approved, patient may be able to discharged early next week after chemotherapy complete if nausea and vomiting controlled Subjective 24 Hr Interval Summary Constitutional: no complaints ENT: no complaints Gastrointestinal: no complaints Exam/Review of Systems Vital Signs Vitals Vital Signs Date Time Temp Pulse Resp B/P Pulse Ox O2 Delivery O2 Flow Rate FiO2 12/15/16 07:47 98.2 63 16 129/77 95 Room Air 12/12/16 10:50 2.0 Intake and Output 12/14/16 12/14/16 12/15/16 15:00 23:00 07:00 Intake Total 250 ml 2390 ml 800 ml Output Total 1300 ml 1450 ml Balance 250 ml 1090 ml -650 ml Exam Constitutional: alert, oriented Eyes: nl conjunctiva Neck: supple Respiratory: normal air movement Gastrointestinal: soft Results Result Diagram: 12/15/16 0428 12/15/16 0428 Results 24 hrs Laboratory Tests Test 12/15/16 04:28 White Blood Count 10.6 Red Blood Count 3.68 L Hemoglobin 10.3 L Hematocrit 32.6 L Mean Corpuscular Volume 88.6 Mean Corpuscular Hemoglobin 28.0 L Mean Corpuscular Hemoglobin Concent 31.6 L Red Cell Distribution Width 16.0 H Platelet Count 255 Mean Platelet Volume 10.3 Neutrophils % 91.7 H Lymphocytes % 5.3 L Monocytes % 2.2 Eosinophils % 0.0 Basophils % 0.1 Nucleated Red Blood Cells % 0.0 Neutrophils # 9.8 H Lymphocytes # 0.6 L Monocytes # 0.2 L Eosinophils # 0.0 Basophils # 0.0 Nucleated Red Blood Cells # 0.0 Sodium Level 141 Potassium Level 3.6 Chloride Level 109 Carbon Dioxide Level 26 Anion Gap 10 Blood Urea Nitrogen 13 Creatinine 0.58 Glucose Level 79 Calcium Level 8.2 L Total Bilirubin 0.4 Direct Bilirubin 0.00 Indirect Bilirubin 0.4 Aspartate Amino Transf (AST/SGOT) 46 Alanine Aminotransferase (ALT/SGPT) 44 Alkaline Phosphatase 46 Total Protein 4.7 L Albumin 2.8 L Globulin 1.90 Albumin/Globulin Ratio 1.47 Medications Medications Current Medications Enoxaparin Sodium (Lovenox) 40 mg DAILY SC Last administered on 12/15/16 09:13 ; Admin Dose 40 MG; Start 12/11/16 at 13:00 Metoclopramide HCl (Reglan) 10 mg Q6H PRN IV NAUSEA AND/OR VOMITING; Start at 14:00 Acetaminophen (Tylenol Tab) 650 mg Q6H PRN PO PAIN LEVEL 1-3 OR FEVER Last administered on 12/15/16 07:55; Admin Dose 650 MG; Start 12/11/16 at 14:00 Acetaminophen/ Hydrocodone Bitart ([place] (5/325)) 1 tab Q6H PRN PO MODERATE PAIN LEVEL 4-6; Start 12/11/16 at 14:00 Morphine Sulfate (morphine) 2 mg Q4H PRN IV SEVERE PAIN LEVEL 7-10; Start 12/11 at 14:00 Pantoprazole (Protonix Tab) 40 mg DAILY@06 PO Last administered on 12/15/16 06 :05; Admin Dose 40 MG; Start 12/12/16 at 06:00 Prochlorperazine 10 mg 10 mg Q4H PRN IV NAUSEA AND/OR VOMITING; Start 12/11/16 at 14:00 Sodium Chloride 1,000 ml @ 30 mls/hr Q24H IV Last administered on 12/15/16 09 :08; Admin Dose 30 MLS/HR; Start 12/12/16 at 09:00 Sodium Chloride (NS) 1,000 ml @ 50 mls/hr Q20H IV Last administered on 09:16; Admin Dose 50 MLS/HR; Start 12/12/16 at 15:00 Filgrastim 480 mcg 480 mcg DAILY@17 SC ; Start 12/16/16 at 17:00; Stop 12/25/16 at 17:01 [place]/Sodium Chloride ([place]/NS) 270 ml @ 22.5 mls/hr 06 IV Last administered on 12/15/16 06:02; Admin Dose 22.5 MLS/HR; Start 12/13/16 at 06:00; Stop at 17:59 VAMSI SAMAYOA MD Dec 15, 2016 17:51
[2016-12-15 20:49] LABS: ADD UMIC NO; UR BILIRUBIN (Dip) NEGATIVE (NEGATIVE); UR BLOOD (Dip) NEGATIVE (NEGATIVE); UR CLARITY CLEAR (CLEAR); UR COLOR LT. YELLOW (YELLOW); UR GLUCOSE (Dip) NEGATIVE (NEGATIVE); UR KETONES (Dip) NEGATIVE (NEGATIVE); UR LEUKOCYTE ESTERASE (Dip) NEGATIVE (NEGATIVE); UR NITRITE (Dip) NEGATIVE (NEGATIVE); UR TOTAL PROTEIN (Dip) NEGATIVE (NEGATIVE); UR UROBILINOGEN (Dip) 0.2 E.U./dL (0.1-1.0)
[2016-12-15 21:46] LABS: UR BACTERIA MANY; URINE RBCS NONE SEEN /HPF (0)
[2016-12-16 05:08] LABS: ADD SCAN DIFF NO
[2016-12-16 05:15] LABS: ABNORMAL IP MESSAGE 1; BASOPHILS % 0.1 % (0.0-2.0); HEMATOCRIT 31.9 % (37.0-47.0); HEMOGLOBIN 10.5 g/dl (12.0-16.0); LYMPHOCYTES # 0.5 10^3/ul (0.8-2.9); LYMPHOCYTES % 5.8 % (15.0-51.0); MEAN CORPUSCULAR HEMOGLOBIN 28.7 pg (29.0-33.0); MEAN CORPUSCULAR HGB CONC 32.9 g/dl (32.0-37.0); MEAN CORPUSCULAR VOLUME 87.2 fl (82.0-101.0); MONOCYTE # 0.1 10^3/ul (0.3-0.9); MONOCYTES % 1.6 % (0.0-11.0); NEUTROPHIL # 7.6 10^3/ul (1.6-7.5); NEUTROPHILS % 92.4 % (39.0-77.0); PLATELET COUNT 248 10^3/UL (140-415); RED BLOOD COUNT 3.66 10^6/ul (4.20-5.40); RED CELL DISTRIBUTION WIDTH 15.8 % (11.5-14.5); WHITE BLOOD COUNT 8.2 10^3/ul (4.8-10.8)
[2016-12-16] MEDS: SOD CHLORIDE 0.9% 1,000 ML IV SCH (05:38)
[2016-12-16] MEDS: PANTOPRAZOLE (EC) 40 MG TAB PO SCH (05:40)
[2016-12-16 05:50] LABS: ALBUMIN 2.9 g/dl (3.3-4.9); ALBUMIN/GLOBULIN RATIO 1.52; BILIRUBIN,INDIRECT 0.4 mg/dl (0-1.1); BILIRUBIN,TOTAL 0.4 mg/dl (0.2-1.3); CALCIUM 8.2 mg/dl (8.4-10.2); CREATININE 0.52 mg/dl (0.44-1.00); POTASSIUM 3.8 mmol/L (3.5-5.1); TOTAL PROTEIN 4.8 g/dl (6.1-8.1)
[2016-12-16] MEDS: ENOXAPARIN 40 MG/0.4 ML SYG SC SCH (08:34)
[2016-12-16 08:36] VITALS: BP 117/68; RESP 17
[2016-12-16 09:23] LABS: ADD UMIC YES; UR BILIRUBIN (Dip) NEGATIVE (NEGATIVE); UR BLOOD (Dip) TRACE (NEGATIVE); UR CLARITY SLIGHTLY CLOUDY (CLEAR); UR COLOR LT. YELLOW (YELLOW); UR GLUCOSE (Dip) NEGATIVE (NEGATIVE); UR KETONES (Dip) NEGATIVE (NEGATIVE); UR LEUKOCYTE ESTERASE (Dip) NEGATIVE (NEGATIVE); UR NITRITE (Dip) NEGATIVE (NEGATIVE); UR TOTAL PROTEIN (Dip) NEGATIVE (NEGATIVE); UR UROBILINOGEN (Dip) 0.2 E.U./dL (0.1-1.0)
[2016-12-16 09:35] LABS: UR SQUAMOUS EPITHELIAL CELL FEW; URINE RBCS 0-2 /HPF (0)
[2016-12-16 09:36] LABS: UR BACTERIA MANY
[2016-12-16 09:37] LABS: UR AMORPHOUS CRYSTAL MODERATE
--- NOTE | 2016-12-16 14:43 | PN ---
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 Day 1 was on 12/13/16. Plan for a total of 4 cycles of ifosfamide/taxol followd by 4 cycles of carbo/taxol per discussion with Dr. Bueno. Side effects including N/V, fatigue, myelosuppression, allergic reaction, confusion, hemorrhagic cystitis discussed with the patient. Plan to obtain restaging scans after 4th cycle or sooner if symptoms. - Check daily UA while receiving ifosfamide. Monitor for hemorrhagic cystitis. - Avoid benzodiazepines or ambien while receiving ifosfamide. Monitor for CUPOLA WORKER symptoms or encephalopathy with ifosfamide. - Patient received decadron 20 mg PO 12 hours and 6 hours prior to paclitaxel hgb stable - zofran prn, added compazine and reglan prn nausea/vomiting. If controlled then dc plan when chemorx is done, - s/p port placement - outpatient neupogen and transfusions approved, patient may be able to discharged early next week after chemotherapy complete if nausea and vomiting controlled Subjective 24 Hr Interval Summary Gastrointestinal: decreased appetite, nausea, vomiting Exam/Review of Systems Vital Signs Vitals Vital Signs Date Time Temp Pulse Resp B/P Pulse Ox O2 Delivery O2 Flow Rate FiO2 12/16/16 08:36 97.9 70 17 117/68 100 12/15/16 19:30 Room Air 12/12/16 10:50 2.0 Intake and Output 12/15/16 12/15/16 12/16/16 15:00 23:00 07:00 Intake Total 400 ml 1680 ml 500 ml Output Total 1450 ml Balance 400 ml 1680 ml -950 ml Exam Constitutional: alert, oriented Psych: anxiety, nl mood/affect Eyes: nl conjunctiva Respiratory: normal air movement Cardiovascular: regular rate and rhythm Gastrointestinal: soft Results Result Diagram: 12/16/16 0436 12/16/16 0436 Results 24 hrs Laboratory Tests Test 12/16/16 04:36 12/16/16 07:45 White Blood Count 8.2 # Red Blood Count 3.66 L Hemoglobin 10.5 L Hematocrit 31.9 L Mean Corpuscular Volume 87.2 Mean Corpuscular Hemoglobin 28.7 L Mean Corpuscular Hemoglobin Concent 32.9 Red Cell Distribution Width 15.8 H Platelet Count 248 Mean Platelet Volume 10.0 Neutrophils % 92.4 H Lymphocytes % 5.8 L Monocytes % 1.6 Eosinophils % 0.0 Basophils % 0.1 Nucleated Red Blood Cells % 0.0 Neutrophils # 7.6 H Lymphocytes # 0.5 L Monocytes # 0.1 L Eosinophils # 0.0 Basophils # 0.0 Nucleated Red Blood Cells # 0.0 Sodium Level 139 Potassium Level 3.8 Chloride Level 107 Carbon Dioxide Level 26 Anion Gap 10 Blood Urea Nitrogen 12 Creatinine 0.52 Glucose Level 79 Calcium Level 8.2 L Total Bilirubin 0.4 Direct Bilirubin 0.00 Indirect Bilirubin 0.4 Aspartate Amino Transf (AST/SGOT) 50 H Alanine Aminotransferase (ALT/SGPT) 50 Alkaline Phosphatase 50 Total Protein 4.8 L Albumin 2.9 L Globulin 1.90 Albumin/Globulin Ratio 1.52 Urine Color LT. YELLOW Urine Clarity SLIGHTLY CLOUDY Urine pH 8.0 Urine Specific [place] 1.020 Urine Ketones NEGATIVE Urine Nitrite NEGATIVE Urine Bilirubin NEGATIVE Urine Urobilinogen 0.2 E.U./dL Urine Leukocyte Esterase NEGATIVE Urine Microscopic RBC 0-2 Urine Microscopic WBC 2-5 Urine Squamous Epithelial Cells FEW Urine Amorphous Urates MODERATE Urine Bacteria MANY Urine Hemoglobin TRACE Urine Glucose NEGATIVE Urine Total Protein NEGATIVE Medications Medications Current Medications Enoxaparin Sodium (Lovenox) 40 mg DAILY SC Last administered on 12/16/16 08:34 ; Admin Dose 40 MG; Start 12/11/16 at 13:00 Metoclopramide HCl (Reglan) 10 mg Q6H PRN IV NAUSEA AND/OR VOMITING; Start at 14:00 Acetaminophen (Tylenol Tab) 650 mg Q6H PRN PO PAIN LEVEL 1-3 OR FEVER Last administered on 12/15/16 07:55; Admin Dose 650 MG; Start 12/11/16 at 14:00 Acetaminophen/ Hydrocodone Bitart ([place] (5/325)) 1 tab Q6H PRN PO MODERATE PAIN LEVEL 4-6; Start 12/11/16 at 14:00 Morphine Sulfate (morphine) 2 mg Q4H PRN IV SEVERE PAIN LEVEL 7-10; Start 12/11 at 14:00 Pantoprazole (Protonix Tab) 40 mg DAILY@06 PO Last administered on 12/15/16 06 :05; Admin Dose 40 MG; Start 12/12/16 at 06:00 Prochlorperazine 10 mg 10 mg Q4H PRN IV NAUSEA AND/OR VOMITING Last administered on 12/16/16 05:36; Admin Dose 10 MG; Start 12/11/16 at 14:00 Sodium Chloride 1,000 ml @ 30 mls/hr Q24H IV Last administered on 12/13/16 08 :13; Admin Dose 30 MLS/HR; Start 12/12/16 at 09:00 Sodium Chloride (NS) 1,000 ml @ 50 mls/hr Q20H IV Last administered on 05:38; Admin Dose 50 MLS/HR; Start 12/12/16 at 15:00 Filgrastim (Neupogen) 480 mcg DAILY@17 SC ; Start 12/16/16 at 17:00; Stop at 17:01 VAMSI SAMAYOA MD Dec 16, 2016 14:43
--- NOTE | 2016-12-16 16:26 | PN ---
Date/Time of Note Date/Time of Note DATE: 12/16/16 TIME: 16:25 Assessment/Plan VTE Prophylaxis VTE Prophylaxis Intervention: other Lines/Catheters IV C[facility] Type [facility]from [facility] PORT A CATH Urinary Cath still in place: No Assessment/Plan Assessment/Plan 1. Stage IV endometrial cancer, status post total abdominal hysterectomy and bilateral salpingo-oophorectomy and rectosigmoid anastomosis in September 2016. Dr. Hoang is following in oncology consultation. Continue chemotherapy per oncology. 2. Gastritis by history. Continue Protonix for peptic ulcer disease prophylaxis. Further recommendations based on clinical course. Plan of care discussed with Dr. Richardson. Exam/Review of Systems Vital Signs Vitals Vital Signs Date Time Temp Pulse Resp B/P Pulse Ox O2 Delivery O2 Flow Rate FiO2 12/16/16 08:36 97.9 70 17 117/68 100 12/15/16 19:30 Room Air 12/12/16 10:50 2.0 Intake and Output 12/15/16 12/15/16 12/16/16 15:00 23:00 07:00 Intake Total 400 ml 1680 ml 500 ml Output Total 1450 ml Balance 400 ml 1680 ml -950 ml Exam Constitutional: alert, oriented, well developed Respiratory: clear to auscultation, normal air movement Cardiovascular: nl pulses, regular rate and rhythm Gastrointestinal: non-tender, soft Musculoskeletal: nl extremities to inspection Extremities: normal pulses Neurological: nl mental status, nl speech Skin: other Results Result Diagram: 12/16/16 0436 12/16/16 0436 Results 24 hrs Laboratory Tests Test 12/16/16 04:36 12/16/16 07:45 White Blood Count 8.2 # Red Blood Count 3.66 L Hemoglobin 10.5 L Hematocrit 31.9 L Mean Corpuscular Volume 87.2 Mean Corpuscular Hemoglobin 28.7 L Mean Corpuscular Hemoglobin Concent 32.9 Red Cell Distribution Width 15.8 H Platelet Count 248 Mean Platelet Volume 10.0 Neutrophils % 92.4 H Lymphocytes % 5.8 L Monocytes % 1.6 Eosinophils % 0.0 Basophils % 0.1 Nucleated Red Blood Cells % 0.0 Neutrophils # 7.6 H Lymphocytes # 0.5 L Monocytes # 0.1 L Eosinophils # 0.0 Basophils # 0.0 Nucleated Red Blood Cells # 0.0 Sodium Level 139 Potassium Level 3.8 Chloride Level 107 Carbon Dioxide Level 26 Anion Gap 10 Blood Urea Nitrogen 12 Creatinine 0.52 Glucose Level 79 Calcium Level 8.2 L Total Bilirubin 0.4 Direct Bilirubin 0.00 Indirect Bilirubin 0.4 Aspartate Amino Transf (AST/SGOT) 50 H Alanine Aminotransferase (ALT/SGPT) 50 Alkaline Phosphatase 50 Total Protein 4.8 L Albumin 2.9 L Globulin 1.90 Albumin/Globulin Ratio 1.52 Urine Color LT. YELLOW Urine Clarity SLIGHTLY CLOUDY Urine pH 8.0 Urine Specific [place] 1.020 Urine Ketones NEGATIVE Urine Nitrite NEGATIVE Urine Bilirubin NEGATIVE Urine Urobilinogen 0.2 E.U./dL Urine Leukocyte Esterase NEGATIVE Urine Microscopic RBC 0-2 Urine Microscopic WBC 2-5 Urine Squamous Epithelial Cells FEW Urine Amorphous Urates MODERATE Urine Bacteria MANY Urine Hemoglobin TRACE Urine Glucose NEGATIVE Urine Total Protein NEGATIVE Medications Medications Current Medications Enoxaparin Sodium (Lovenox) 40 mg DAILY SC Last administered on 12/16/16 08:34 ; Admin Dose 40 MG; Start 12/11/16 at 13:00 Metoclopramide HCl (Reglan) 10 mg Q6H PRN IV NAUSEA AND/OR VOMITING; Start at 14:00 Acetaminophen (Tylenol Tab) 650 mg Q6H PRN PO PAIN LEVEL 1-3 OR FEVER Last administered on 12/15/16 07:55; Admin Dose 650 MG; Start 12/11/16 at 14:00 Acetaminophen/ Hydrocodone Bitart ([place] (5/325)) 1 tab Q6H PRN PO MODERATE PAIN LEVEL 4-6; Start 12/11/16 at 14:00 Morphine Sulfate (morphine) 2 mg Q4H PRN IV SEVERE PAIN LEVEL 7-10; Start 12/11 at 14:00 Pantoprazole (Protonix Tab) 40 mg DAILY@06 PO Last administered on 12/15/16 06 :05; Admin Dose 40 MG; Start 12/12/16 at 06:00 Prochlorperazine 10 mg 10 mg Q4H PRN IV NAUSEA AND/OR VOMITING Last administered on 12/16/16 05:36; Admin Dose 10 MG; Start 12/11/16 at 14:00 Sodium Chloride 1,000 ml @ 30 mls/hr Q24H IV Last administered on 12/13/16 08 :13; Admin Dose 30 MLS/HR; Start 12/12/16 at 09:00 Sodium Chloride (NS) 1,000 ml @ 50 mls/hr Q20H IV Last administered on t 05:38; Admin Dose 50 MLS/HR; Start 12/12/16 at 15:00 Filgrastim (Neupogen) 480 mcg DAILY@17 SC ; Start 12/16/16 at 17:00; Stop at 17:01 LATRICIA GABRIEL Dec 16, 2016 16:26
[2016-12-16] MEDS: FILGRASTIM 480 MCG INJ SC SCH (18:22)
[2016-12-16 19:18] VITALS: BP 108/66; RESP 20
[2016-12-17] MEDS: SOD CHLORIDE 0.9% 1,000 ML IV SCH ×3 (00:16→13:25)
[2016-12-17 05:06] LABS: ADD SCAN DIFF NO
[2016-12-17 05:10] LABS: ABNORMAL IP MESSAGE 1; BASOPHIL # 0.1 10^3/ul (0.0-0.1); BASOPHILS % 0.2 % (0.0-2.0); HEMATOCRIT 31.8 % (37.0-47.0); HEMOGLOBIN 10.3 g/dl (12.0-16.0); LYMPHOCYTES # 0.3 10^3/ul (0.8-2.9); LYMPHOCYTES % 1.4 % (15.0-51.0); MEAN CORPUSCULAR HEMOGLOBIN 28.8 pg (29.0-33.0); MEAN CORPUSCULAR HGB CONC 32.4 g/dl (32.0-37.0); MEAN CORPUSCULAR VOLUME 88.8 fl (82.0-101.0); MONOCYTE # 0.1 10^3/ul (0.3-0.9); MONOCYTES % 0.3 % (0.0-11.0); NEUTROPHIL # 22.3 10^3/ul (1.6-7.5); PLATELET COUNT 234 10^3/UL (140-415); RED BLOOD COUNT 3.58 10^6/ul (4.20-5.40); RED CELL DISTRIBUTION WIDTH 15.9 % (11.5-14.5); WHITE BLOOD COUNT 24.8 10^3/ul (4.8-10.8)
[2016-12-17 05:34] LABS: ALBUMIN 2.9 g/dl (3.3-4.9); ALBUMIN/GLOBULIN RATIO 1.45; BILIRUBIN,INDIRECT 0.6 mg/dl (0-1.1); BILIRUBIN,TOTAL 0.6 mg/dl (0.2-1.3); CALCIUM 8.1 mg/dl (8.4-10.2); CREATININE 0.52 mg/dl (0.44-1.00); POTASSIUM 4.2 mmol/L (3.5-5.1); TOTAL PROTEIN 4.9 g/dl (6.1-8.1)
[2016-12-17] MEDS: PANTOPRAZOLE (EC) 40 MG TAB PO SCH (05:48)
[2016-12-17 05:52] LABS: NEUTROPHILS % 90.2 % (39.0-77.0)
[2016-12-17] MEDS: ENOXAPARIN 40 MG/0.4 ML SYG SC SCH (08:24)
[2016-12-17 08:36] VITALS: BP 123/72; RESP 18
--- NOTE | 2016-12-17 09:50 | CONS ---
Date/Time of Note Date/Time of Note DATE: 12/17/16 TIME: 09:48 Assessment/Plan Assessment/Plan Chief Complaint/Hosp Course 56yo female with metastatic uterine carcinosarcoma sarcoma now admitted for cycle 3 of ifex/ taxol. Day 1 was on 12/13/16. Plan for a total of 4 cycles of ifosfamide/taxol followd by 4 cycles of carbo/taxol per discussion with Dr. Bueno. Side effects including N/V, fatigue, myelosuppression, allergic reaction, confusion, hemorrhagic cystitis discussed with the patient. Plan to obtain restaging scans after 4th cycle or sooner if symptoms. - Check daily UA while receiving ifosfamide. Monitor for hemorrhagic cystitis. - Avoid benzodiazepines or ambien while receiving ifosfamide. Monitor for EXCAVATOR OPERATOR symptoms or encephalopathy with ifosfamide. - Patient received decadron 20 mg PO 12 hours and 6 hours prior to paclitaxel hgb stable - zofran prn, added compazine and reglan prn nausea/vomiting. - colace, miralax prn constipation - s/p port placement - outpatient neupogen and transfusions approved, will verify that patient can receive outpatient neupogen in my clinic and then patient may be able to discharged if nausea and vomiting controlled Problems: Consultation Date/Type/Reason Admit Date/Time Dec 11, 2016 at 10:23 Initial Consult Date 12/11/16 Type of Consultation: Oncology Referring Provider: ARLENE CHOWDARY MD 24 HR Interval Summary Free Text/Dictation Patient doing well, denies N/V today. +constipation Exam/Review of Systems Vital Signs Vitals Vital Signs Date Time Temp Pulse Resp B/P Pulse Ox O2 Delivery O2 Flow Rate FiO2 12/17/16 08:36 98.6 101 18 123/72 98 12/15/16 19:30 Room Air Intake and Output 12/16/16 12/16/16 12/17/16 15:00 23:00 07:00 Intake Total 800 ml 1990 ml Output Total 1000 ml 1200 ml Balance -200 ml 790 ml Exam Constitutional: alert, oriented Psych: anxiety, nl mood/affect Eyes: nl conjunctiva Respiratory: normal air movement Cardiovascular: regular rate and rhythm Gastrointestinal: soft Results Result Diagram: 12/17/16 0440 12/17/16 0440 Results 24 hrs Laboratory Tests Test 12/17/16 04:40 White Blood Count 24.8 #H Red Blood Count 3.58 L Hemoglobin 10.3 L Hematocrit 31.8 L Mean Corpuscular Volume 88.8 Mean Corpuscular Hemoglobin 28.8 L Mean Corpuscular Hemoglobin Concent 32.4 Red Cell Distribution Width 15.9 H Platelet Count 234 Mean Platelet Volume 10.0 Neutrophils % 90.2 H Lymphocytes % 1.4 L Monocytes % 0.3 Eosinophils % 0.0 Basophils % 0.2 Nucleated Red Blood Cells % 0.0 Neutrophils # 22.3 H Lymphocytes # 0.3 L Monocytes # 0.1 L Eosinophils # 0.0 Basophils # 0.1 Nucleated Red Blood Cells # 0.0 Sodium Level 133 L Potassium Level 4.2 Chloride Level 106 Carbon Dioxide Level 26 Anion Gap 5 L Blood Urea Nitrogen 11 Creatinine 0.52 Glucose Level 90 Calcium Level 8.1 L Total Bilirubin 0.6 Direct Bilirubin 0.00 Indirect Bilirubin 0.6 Aspartate Amino Transf (AST/SGOT) 57 H Alanine Aminotransferase (ALT/SGPT) 60 Alkaline Phosphatase 56 Total Protein 4.9 L Albumin 2.9 L Globulin 2.00 Albumin/Globulin Ratio 1.45 Medications Medications Current Medications Enoxaparin Sodium (Lovenox) 40 mg DAILY SC Last administered on 12/17/16 08:24 ; Admin Dose 40 MG; Start 12/11/16 at 13:00 Metoclopramide HCl (Reglan) 10 mg Q6H PRN IV NAUSEA AND/OR VOMITING; Start at 14:00 Acetaminophen (Tylenol Tab) 650 mg Q6H PRN PO PAIN LEVEL 1-3 OR FEVER Last administered on 12/15/16 07:55; Admin Dose 650 MG; Start 12/11/16 at 14:00 Acetaminophen/ Hydrocodone Bitart ([place] (5/325)) 1 tab Q6H PRN PO MODERATE PAIN LEVEL 4-6; Start 12/11/16 at 14:00 Morphine Sulfate (morphine) 2 mg Q4H PRN IV SEVERE PAIN LEVEL 7-10; Start 12/11 at 14:00 Pantoprazole (Protonix Tab) 40 mg DAILY@06 PO Last administered on 12/17/16 05 :48; Admin Dose 40 MG; Start 12/12/16 at 06:00 Prochlorperazine 10 mg 10 mg Q4H PRN IV NAUSEA AND/OR VOMITING Last administered on 12/16/16 05:36; Admin Dose 10 MG; Start 12/11/16 at 14:00 Sodium Chloride 1,000 ml @ 30 mls/hr Q24H IV Last administered on 12/17/16 00 :16; Admin Dose 30 MLS/HR; Start 12/12/16 at 09:00 Sodium Chloride (NS) 1,000 ml @ 50 mls/hr Q20H IV Last administered on 05:38; Admin Dose 50 MLS/HR; Start 12/12/16 at 15:00 Filgrastim (Neupogen) 480 mcg DAILY@17 SC Last administered on 12/16/16 18:22 ; Admin Dose 480 MCG; Start 12/16/16 at 17:00; Stop 12/25/16 at 17:01 TOLINDA MD Dec 17, 2016 09:50
[2016-12-17] MEDS ORDERED: POLYETHYLENE GLYCOL 17 GM PACKET PO PRN (10:00)
[2016-12-17] MEDS: DOCUSATE SODIUM 100 MG CAP PO SCH ×2 (10:40→22:39)
[2016-12-17] MEDS ORDERED: HYDR-906 PO (15:20)
[2016-12-17] MEDS ORDERED: OMEP20CA16 PO (15:20)
--- NOTE | 2016-12-17 15:31 | PN ---
Date/Time of Note Date/Time of Note DATE: 12/17/16 TIME: 15:29 Assessment/Plan VTE Prophylaxis VTE Prophylaxis Intervention: SCD's Lines/Catheters IV [facility] PORTACATH Urinary Cath still in place: No Assessment/Plan Chief Complaint/Hosp Course Patient denies any nausea vomiting, remains hemodynamically stable. Anticipate discharge home upon arrangement for [facility] at Dr. Logan office. ASSESSMENT AND PLAN: 1. Stage IV endometrial cancer, status post total abdominal hysterectomy and bilateral salpingo-oophorectomy and rectosigmoid anastomosis in September 2016. Dr. Hoang is following in oncology consultation. Completed third cycle of chemotherapy. 2. Gastritis by history. Continue Protonix for peptic ulcer disease prophylaxis. Further recommendations based on clinical course. Plan of care discussed with Dr. Richardson. Problems: Exam/Review of Systems Vital Signs Vitals Vital Signs Date Time Temp Pulse Resp B/P Pulse Ox O2 Delivery O2 Flow Rate FiO2 12/17/16 08:36 98.6 101 18 123/72 98 12/15/16 19:30 Room Air Intake and Output 12/16/16 12/16/16 12/17/16 15:00 23:00 07:00 Intake Total 800 ml 1990 ml Output Total 1000 ml 1200 ml Balance -200 ml 790 ml Exam Constitutional: alert Head: normocephalic Neck: supple Respiratory: clear to auscultation Cardiovascular: nl pulses Gastrointestinal: non-tender, soft Extremities: normal pulses Additional Comments Right chest permacath Results Result Diagram: 12/17/16 0440 12/17/16 0440 Results 24 hrs Laboratory Tests Test 12/17/16 04:40 White Blood Count 24.8 #H Red Blood Count 3.58 L Hemoglobin 10.3 L Hematocrit 31.8 L Mean Corpuscular Volume 88.8 Mean Corpuscular Hemoglobin 28.8 L Mean Corpuscular Hemoglobin Concent 32.4 Red Cell Distribution Width 15.9 H Platelet Count 234 Mean Platelet Volume 10.0 Neutrophils % 90.2 H Lymphocytes % 1.4 L Monocytes % 0.3 Eosinophils % 0.0 Basophils % 0.2 Nucleated Red Blood Cells % 0.0 Neutrophils # 22.3 H Lymphocytes # 0.3 L Monocytes # 0.1 L Eosinophils # 0.0 Basophils # 0.1 Nucleated Red Blood Cells # 0.0 Sodium Level 133 L Potassium Level 4.2 Chloride Level 106 Carbon Dioxide Level 26 Anion Gap 5 L Blood Urea Nitrogen 11 Creatinine 0.52 Glucose Level 90 Calcium Level 8.1 L Total Bilirubin 0.6 Direct Bilirubin 0.00 Indirect Bilirubin 0.6 Aspartate Amino Transf (AST/SGOT) 57 H Alanine Aminotransferase (ALT/SGPT) 60 Alkaline Phosphatase 56 Total Protein 4.9 L Albumin 2.9 L Globulin 2.00 Albumin/Globulin Ratio 1.45 Medications Medications Current Medications Enoxaparin Sodium (Lovenox) 40 mg DAILY SC Last administered on 12/17/16 08:24 ; Admin Dose 40 MG; Start 12/11/16 at 13:00 Metoclopramide HCl (Reglan) 10 mg Q6H PRN IV NAUSEA AND/OR VOMITING; Start at 14:00 Acetaminophen (Tylenol Tab) 650 mg Q6H PRN PO PAIN LEVEL 1-3 OR FEVER Last administered on 12/15/16 07:55; Admin Dose 650 MG; Start 12/11/16 at 14:00 Acetaminophen/ Hydrocodone Bitart ([place] (5/325)) 1 tab Q6H PRN PO MODERATE PAIN LEVEL 4-6; Start 12/11/16 at 14:00 Morphine Sulfate (morphine) 2 mg Q4H PRN IV SEVERE PAIN LEVEL 7-10; Start 12/11 at 14:00 Pantoprazole (Protonix Tab) 40 mg DAILY@06 PO Last administered on 12/17/16 05 :48; Admin Dose 40 MG; Start 12/12/16 at 06:00 Prochlorperazine 10 mg 10 mg Q4H PRN IV NAUSEA AND/OR VOMITING Last administered on 12/16/16 05:36; Admin Dose 10 MG; Start 12/11/16 at 14:00 Sodium Chloride (NS) 1,000 ml @ 50 mls/hr Q20H IV Last administered on 05:38; Admin Dose 50 MLS/HR; Start 12/12/16 at 15:00 Filgrastim (Neupogen) 480 mcg DAILY@17 SC Last administered on 12/16/16 18:22 ; Admin Dose 480 MCG; Start 12/16/16 at 17:00; Stop 12/25/16 at 17:01 Docusate Sodium (Colace) 100 mg BID PO Last administered on 12/17/16t 10:40; Admin Dose 100 MG; Start 12/17/16 at 10:00 Polyethylene Glycol (Miralax) 17 gm DAILY PRN PO CONSTIPATION; Start 12/17/16 at 10:00 ELVIN TEIXEIRA Dec 17, 2016 15:31
[2016-12-17] MEDS: FILGRASTIM 480 MCG INJ SC SCH (18:07)
[2016-12-17 19:37] VITALS: BP 101/64; RESP 18
[2016-12-18 06:14] LABS: ALBUMIN 2.9 g/dl (3.3-4.9); ALBUMIN/GLOBULIN RATIO 1.61; BILIRUBIN,INDIRECT 0.3 mg/dl (0-1.1); BILIRUBIN,TOTAL 0.3 mg/dl (0.2-1.3); CALCIUM 8.2 mg/dl (8.4-10.2); CREATININE 0.59 mg/dl (0.44-1.00); POTASSIUM 3.8 mmol/L (3.5-5.1); TOTAL PROTEIN 4.7 g/dl (6.1-8.1)
[2016-12-18 06:15] LABS: ADD SCAN DIFF NO
[2016-12-18] MEDS: PANTOPRAZOLE (EC) 40 MG TAB PO SCH (06:23)
[2016-12-18 07:43] VITALS: BP 116/73; RESP 18
[2016-12-18 07:53] LABS: ABNORMAL IP MESSAGE 1; HEMATOCRIT 28.6 % (37.0-47.0); HEMOGLOBIN 9.2 g/dl (12.0-16.0); MEAN CORPUSCULAR HEMOGLOBIN 28.8 pg (29.0-33.0); MEAN CORPUSCULAR HGB CONC 32.2 g/dl (32.0-37.0); MEAN CORPUSCULAR VOLUME 89.4 fl (82.0-101.0); MEAN PLATELET VOLUME 10.6 fl (7.4-10.4); PLATELET COUNT 209 10^3/UL (140-415); RED CELL DISTRIBUTION WIDTH 16.2 % (11.5-14.5); WHITE BLOOD COUNT 14.3 10^3/ul (4.8-10.8)
[2016-12-18] MEDS: DOCUSATE SODIUM 100 MG CAP PO SCH ×2 (08:11→20:27)
[2016-12-18] MEDS: ENOXAPARIN 40 MG/0.4 ML SYG SC SCH (08:14)
--- NOTE | 2016-12-18 10:00 | CONS ---
Date/Time of Note Date/Time of Note DATE: 12/18/16 TIME: 09:58 Assessment/Plan Assessment/Plan Chief Complaint/Hosp Course 56yo female with metastatic uterine carcinosarcoma sarcoma now admitted for cycle 3 of ifex/ taxol. Day 1 was on 12/13/16. Plan for a total of 4 cycles of ifosfamide/taxol followd by 4 cycles of carbo/taxol per discussion with Dr. Bueno. Side effects including N/V, fatigue, myelosuppression, allergic reaction, confusion, hemorrhagic cystitis discussed with the patient. Plan to obtain restaging scans after 4th cycle or sooner if symptoms. - Check daily UA while receiving ifosfamide. Monitor for hemorrhagic cystitis. - Avoid benzodiazepines or ambien while receiving ifosfamide. Monitor for INTERVENTIONAL RADIOLOGY TECH symptoms or encephalopathy with ifosfamide. - Patient received decadron 20 mg PO 12 hours and 6 hours prior to paclitaxel hgb stable - zofran prn, added compazine and reglan prn nausea/vomiting. - colace, miralax prn constipation - s/p port placement - pending arrangements for outpatient neupogen. Once patient discharged, she should follow-up in my clinic at the end of this week. Patient given phone number to call to schedule an appointment. Problems: Consultation Date/Type/Reason Admit Date/Time Dec 11, 2016 at 10:23 Initial Consult Date 12/11/16 Type of Consultation: Oncology Referring Provider: ARLENE CHOWDARY MD 24 HR Interval Summary Free Text/Dictation Doing well, no N/V. + BM Exam/Review of Systems Vital Signs Vitals Vital Signs Date Time Temp Pulse Resp B/P Pulse Ox O2 Delivery O2 Flow Rate FiO2 12/18/16 07:43 98.3 91 18 116/73 99 12/15/16 19:30 Room Air Intake and Output 12/17/16 12/17/16 12/18/16 15:00 23:00 07:00 Intake Total 180 ml 1350 ml 650 ml Balance 180 ml 1350 ml 650 ml Exam Constitutional: alert, oriented Psych: anxiety, nl mood/affect Eyes: nl conjunctiva Respiratory: normal air movement Cardiovascular: regular rate and rhythm Gastrointestinal: soft Results Result Diagram: 12/18/16 0457 12/18/16 0457 Results 24 hrs Laboratory Tests Test 12/18/16 04:57 White Blood Count 14.3 #H Red Blood Count 3.20 L Hemoglobin 9.2 L Hematocrit 28.6 L Mean Corpuscular Volume 89.4 Mean Corpuscular Hemoglobin 28.8 L Mean Corpuscular Hemoglobin Concent 32.2 Red Cell Distribution Width 16.2 H Platelet Count 209 Mean Platelet Volume 10.6 H Neutrophils % Lymphocytes % Monocytes % Eosinophils % Neutrophils # Lymphocytes # Monocytes # Eosinophils # Sodium Level 135 Potassium Level 3.8 Chloride Level 106 Carbon Dioxide Level 26 Anion Gap 7 L Blood Urea Nitrogen 9 Creatinine 0.59 Glucose Level 111 Calcium Level 8.2 L Total Bilirubin 0.3 Direct Bilirubin 0.00 Indirect Bilirubin 0.3 Aspartate Amino Transf (AST/SGOT) 43 Alanine Aminotransferase (ALT/SGPT) 45 Alkaline Phosphatase 57 Total Protein 4.7 L Albumin 2.9 L Globulin 1.80 Albumin/Globulin Ratio 1.61 Medications Medications Current Medications Enoxaparin Sodium (Lovenox) 40 mg DAILY SC Last administered on 12/18/16 08:14 ; Admin Dose 40 MG; Start 12/11/16 at 13:00 Metoclopramide HCl (Reglan) 10 mg Q6H PRN IV NAUSEA AND/OR VOMITING; Start at 14:00 Acetaminophen (Tylenol Tab) 650 mg Q6H PRN PO PAIN LEVEL 1-3 OR FEVER Last administered on 12/15/16 07:55; Admin Dose 650 MG; Start 12/11/16 at 14:00 Acetaminophen/ Hydrocodone Bitart ([place] (5/325)) 1 tab Q6H PRN PO MODERATE PAIN LEVEL 4-6; Start 12/11/16 at 14:00 Morphine Sulfate (morphine) 2 mg Q4H PRN IV SEVERE PAIN LEVEL 7-10; Start 12/11 at 14:00 Pantoprazole (Protonix Tab) 40 mg DAILY@06 PO Last administered on 12/18/16 06 :23; Admin Dose 40 MG; Start 12/12/16 at 06:00 Prochlorperazine 10 mg 10 mg Q4H PRN IV NAUSEA AND/OR VOMITING Last administered on 12/16/16 05:36; Admin Dose 10 MG; Start 12/11/16 at 14:00 Sodium Chloride (NS) 1,000 ml @ 50 mls/hr Q20H IV Last administered on 05:38; Admin Dose 50 MLS/HR; Start 12/12/16 at 15:00 Filgrastim (Neupogen) 480 mcg DAILY@17 SC Last administered on 12/17/16 18:07 ; Admin Dose 480 MCG; Start 12/16/16 at 17:00; Stop 12/25/16 at 17:01 Docusate Sodium (Colace) 100 mg BID PO Last administered on 12/17/16 22:39; Admin Dose 100 MG; Start 12/17/16 at 10:00 Polyethylene Glycol (Miralax) 17 gm DAILY PRN PO CONSTIPATION; Start 12/17/16 at 10:00 TOLINDA MD Dec 18, 2016 10:00
[2016-12-18] MEDS: SOD CHLORIDE 0.9% 1,000 ML IV SCH (10:23)
[2016-12-18 13:31] LABS: BURR CELLS 1+; EOSINOPHILS # 0.4 10^3/ul (0.0-0.5); MONOCYTE # 0.3 10^3/ul (0.3-0.9); NEUTROPHIL # 12.9 10^3/ul (1.6-7.5)
[2016-12-18] MEDS: FILGRASTIM 480 MCG INJ SC SCH (17:04)
--- NOTE | 2016-12-18 17:16 | PN ---
Date/Time of Note Date/Time of Note DATE: 12/18/16 TIME: 17:14 Assessment/Plan VTE Prophylaxis VTE Prophylaxis Intervention: SCD's Lines/Catheters [facility] port a cath Urinary Cath still in place: No Assessment/Plan Chief Complaint/Hosp Course No acute events overnight patient is stable, still awaits for insurance approval for Neupogen injection at Dr. Logan office prior to discharge. ASSESSMENT AND PLAN: 1. Stage IV endometrial cancer, status post total abdominal hysterectomy and bilateral salpingo-oophorectomy and rectosigmoid anastomosis in September 2016. Dr. Hoang is following in oncology consultation. Completed third cycle of chemotherapy. 2. Gastritis by history. Continue Protonix for peptic ulcer disease prophylaxis. Further recommendations based on clinical course. Plan of care discussed with Dr. Richardson. Problems: Exam/Review of Systems Vital Signs Vitals Vital Signs Date Time Temp Pulse Resp B/P Pulse Ox O2 Delivery O2 Flow Rate FiO2 12/18/16 07:43 98.3 91 18 116/73 99 12/15/16 19:30 Room Air Intake and Output 12/17/16 12/17/16 12/18/16 15:00 23:00 07:00 Intake Total 180 ml 1350 ml 650 ml Balance 180 ml 1350 ml 650 ml Exam Constitutional: alert Head: normocephalic Neck: supple Respiratory: clear to auscultation Cardiovascular: nl pulses Gastrointestinal: non-tender, soft Extremities: normal pulses Additional Comments Right chest permacath Results Result Diagram: 12/18/16 0457 12/18/16 0457 Results 24 hrs Laboratory Tests Test 12/18/16 04:57 White Blood Count 14.3 #H Red Blood Count 3.20 L Hemoglobin 9.2 L Hematocrit 28.6 L Mean Corpuscular Volume 89.4 Mean Corpuscular Hemoglobin 28.8 L Mean Corpuscular Hemoglobin Concent 32.2 Red Cell Distribution Width 16.2 H Platelet Count 209 Mean Platelet Volume 10.6 H Neutrophils % 90.0 H Band Neutrophils % 5.0 Lymphocytes % Monocytes % 2.0 Eosinophils % 3.0 Neutrophils # 12.9 H Lymphocytes # Monocytes # 0.3 Eosinophils # 0.4 Differential Comment MANUAL DIFF Large Platelets OCCASIONAL Sodium Level 135 Potassium Level 3.8 Chloride Level 106 Carbon Dioxide Level 26 Anion Gap 7 L Blood Urea Nitrogen 9 Creatinine 0.59 Glucose Level 111 Calcium Level 8.2 L Total Bilirubin 0.3 Direct Bilirubin 0.00 Indirect Bilirubin 0.3 Aspartate Amino Transf (AST/SGOT) 43 Alanine Aminotransferase (ALT/SGPT) 45 Alkaline Phosphatase 57 Total Protein 4.7 L Albumin 2.9 L Globulin 1.80 Albumin/Globulin Ratio 1.61 Medications Medications Current Medications Enoxaparin Sodium (Lovenox) 40 mg DAILY SC Last administered on 12/18/16 08:14 ; Admin Dose 40 MG; Start 12/11/16 at 13:00 Metoclopramide HCl (Reglan) 10 mg Q6H PRN IV NAUSEA AND/OR VOMITING; Start at 14:00 Acetaminophen (Tylenol Tab) 650 mg Q6H PRN PO PAIN LEVEL 1-3 OR FEVER Last administered on 12/15/16 07:55; Admin Dose 650 MG; Start 12/11/16 at 14:00 Acetaminophen/ Hydrocodone Bitart ([place] (5/325)) 1 tab Q6H PRN PO MODERATE PAIN LEVEL 4-6; Start 12/11/16 at 14:00 Morphine Sulfate (morphine) 2 mg Q4H PRN IV SEVERE PAIN LEVEL 7-10; Start 12/11 at 14:00 Pantoprazole (Protonix Tab) 40 mg DAILY@06 PO Last administered on 12/18/16 06 :23; Admin Dose 40 MG; Start 12/12/16 at 06:00 Prochlorperazine 10 mg 10 mg Q4H PRN IV NAUSEA AND/OR VOMITING Last administered on 12/16/16 05:36; Admin Dose 10 MG; Start 12/11/16 at 14:00 Sodium Chloride (NS) 1,000 ml @ 50 mls/hr Q20H IV Last administered on 05:38; Admin Dose 50 MLS/HR; Start 12/12/16 at 15:00 Filgrastim (Neupogen) 480 mcg DAILY@17 SC Last administered on 12/18/16 17:04 ; Admin Dose 480 MCG; Start 12/16/16 at 17:00; Stop 12/25/16 at 17:01 Docusate Sodium (Colace) 100 mg BID PO Last administered on 12/17/16 22:39; Admin Dose 100 MG; Start 12/17/16 at 10:00 Polyethylene Glycol (Miralax) 17 gm DAILY PRN PO CONSTIPATION; Start 12/17/16 at 10:00 ELVIN TEIXEIRA Dec 18, 2016 17:16
[2016-12-18 19:43] LABS: ADD UMIC YES; UR BILIRUBIN (Dip) NEGATIVE (NEGATIVE); UR BLOOD (Dip) NEGATIVE (NEGATIVE); UR CLARITY CLOUDY (CLEAR); UR COLOR LT. YELLOW (YELLOW); UR GLUCOSE (Dip) NEGATIVE (NEGATIVE); UR KETONES (Dip) NEGATIVE (NEGATIVE); UR LEUKOCYTE ESTERASE (Dip) NEGATIVE (NEGATIVE); UR NITRITE (Dip) NEGATIVE (NEGATIVE); UR TOTAL PROTEIN (Dip) TRACE (NEGATIVE); UR UROBILINOGEN (Dip) 0.2 E.U./dL (0.1-1.0)
[2016-12-18 19:50] VITALS: BP 105/56; RESP 18
[2016-12-18 20:18] LABS: UR SQUAMOUS EPITHELIAL CELL MANY /HPF (FEW); URINE RBCS 0-2 /HPF (0)
[2016-12-18 20:19] LABS: UR BACTERIA MANY /HPF (NONE SEEN)
[2016-12-19 06:04] LABS: ADD SCAN DIFF NO
[2016-12-19 06:24] LABS: ABNORMAL IP MESSAGE 1; BASOPHILS % 0.3 % (0.0-2.0); EOSINOPHILS # 0.1 10^3/ul (0.0-0.5); EOSINOPHILS % 1.4 % (0.0-7.0); HEMOGLOBIN 9.1 g/dl (12.0-16.0); LYMPHOCYTES # 0.3 10^3/ul (0.8-2.9); LYMPHOCYTES % 4.4 % (15.0-51.0); MEAN CORPUSCULAR HEMOGLOBIN 29.2 pg (29.0-33.0); MEAN CORPUSCULAR HGB CONC 32.5 g/dl (32.0-37.0); MEAN CORPUSCULAR VOLUME 89.7 fl (82.0-101.0); MEAN PLATELET VOLUME 10.5 fl (7.4-10.4); MONOCYTE # 0.1 10^3/ul (0.3-0.9); MONOCYTES % 1.7 % (0.0-11.0); NEUTROPHIL # 5.4 10^3/ul (1.6-7.5); NEUTROPHILS % 75.9 % (39.0-77.0); PLATELET COUNT 215 10^3/UL (140-415); RED BLOOD COUNT 3.12 10^6/ul (4.20-5.40); RED CELL DISTRIBUTION WIDTH 16.1 % (11.5-14.5); WHITE BLOOD COUNT 7.1 10^3/ul (4.8-10.8)
[2016-12-19] MEDS: SOD CHLORIDE 0.9% 1,000 ML IV SCH (06:28)
[2016-12-19] MEDS: PANTOPRAZOLE (EC) 40 MG TAB PO SCH (06:29)
[2016-12-19 07:16] LABS: ALBUMIN 2.9 g/dl (3.3-4.9); ALBUMIN/GLOBULIN RATIO 1.7; BILIRUBIN,INDIRECT 0.2 mg/dl (0-1.1); BILIRUBIN,TOTAL 0.2 mg/dl (0.2-1.3); CALCIUM 8.1 mg/dl (8.4-10.2); CREATININE 0.53 mg/dl (0.44-1.00); POTASSIUM 4.3 mmol/L (3.5-5.1); TOTAL PROTEIN 4.6 g/dl (6.1-8.1)
[2016-12-19 08:07] VITALS: BP 119/63; RESP 16
[2016-12-19] MEDS: ENOXAPARIN 40 MG/0.4 ML SYG SC SCH (08:47)
[2016-12-19] MEDS: DOCUSATE SODIUM 100 MG CAP PO SCH (08:49)
--- NOTE | 2016-12-19 09:33 | CONS ---
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 Day 1 was on 12/13/16. Plan for a total of 4 cycles of ifosfamide/taxol followd by 4 cycles of carbo/taxol per discussion with Dr. Bueno. Side effects including N/V, fatigue, myelosuppression, allergic reaction, confusion, hemorrhagic cystitis discussed with the patient. Plan to obtain restaging scans after 4th cycle or sooner if symptoms. - Check daily UA while receiving ifosfamide. Monitor for hemorrhagic cystitis. - Avoid benzodiazepines or ambien while receiving ifosfamide. Monitor for PODIATRIC MEDICINE DOCTOR symptoms or encephalopathy with ifosfamide. - Patient received decadron 20 mg PO 12 hours and 6 hours prior to paclitaxel hgb stable - zofran prn, added compazine and reglan prn nausea/vomiting. - colace, miralax prn constipation - s/p port placement - pending shipment of neupogen to patient's home and home health for neupogen injections. Once patient discharged, she should follow-up in my clinic at the end of this week. Patient given phone number to call to schedule an appointment. Problems: Consultation Date/Type/Reason Admit Date/Time Dec 11, 2016 at 10:23 Initial Consult Date 12/11/16 Type of Consultation: Oncology Referring Provider: ARLENE CHOWDARY MD 24 HR Interval Summary Free Text/Dictation Patient doing well, no N/V. Exam/Review of Systems Vital Signs Vitals Vital Signs Date Time Temp Pulse Resp B/P Pulse Ox O2 Delivery O2 Flow Rate FiO2 12/19/16 08:07 98.3 109 16 119/63 100 12/15/16 19:30 Room Air Intake and Output 12/18/16 12/18/16 12/19/16 15:00 23:00 07:00 Intake Total 1200 ml 300 ml Output Total 600 ml Balance 1200 ml -300 ml Exam Constitutional: alert, oriented Psych: anxiety, nl mood/affect Eyes: nl conjunctiva Respiratory: normal air movement Cardiovascular: regular rate and rhythm Gastrointestinal: soft Results Result Diagram: 12/19/16 0435 12/19/16 0435 Results 24 hrs Laboratory Tests Test 12/18/16 09:50 12/19/16 04:35 Urine Color LT. YELLOW Urine Clarity CLOUDY Urine pH Urine Specific [place] Urine Ketones NEGATIVE Urine Nitrite NEGATIVE Urine Bilirubin NEGATIVE Urine Urobilinogen 0.2 E.U./dL Urine Leukocyte Esterase NEGATIVE Urine Microscopic RBC 0-2 Urine Microscopic WBC 0-2 Urine Squamous Epithelial Cells MANY Urine Bacteria MANY Urine Hemoglobin NEGATIVE Urine Glucose NEGATIVE Urine Total Protein TRACE White Blood Count 7.1 # Red Blood Count 3.12 L Hemoglobin 9.1 L Hematocrit 28.0 L Mean Corpuscular Volume 89.7 Mean Corpuscular Hemoglobin 29.2 Mean Corpuscular Hemoglobin Concent 32.5 Red Cell Distribution Width 16.1 H Platelet Count 215 Mean Platelet Volume 10.5 H Neutrophils % 75.9 Lymphocytes % 4.4 L Monocytes % 1.7 Eosinophils % 1.4 Basophils % 0.3 Nucleated Red Blood Cells % 0.0 Neutrophils # 5.4 Lymphocytes # 0.3 L Monocytes # 0.1 L Eosinophils # 0.1 Basophils # 0.0 Nucleated Red Blood Cells # 0.0 Sodium Level 136 Potassium Level 4.3 Chloride Level 106 Carbon Dioxide Level 25 Anion Gap 9 Blood Urea Nitrogen 11 Creatinine 0.53 Glucose Level 74 Calcium Level 8.1 L Total Bilirubin 0.2 Direct Bilirubin 0.00 Indirect Bilirubin 0.2 Aspartate Amino Transf (AST/SGOT) 48 H Alanine Aminotransferase (ALT/SGPT) 46 Alkaline Phosphatase 63 Total Protein 4.6 L Albumin 2.9 L Globulin 1.70 Albumin/Globulin Ratio 1.70 Medications Medications Current Medications Enoxaparin Sodium (Lovenox) 40 mg DAILY SC Last administered on 12/19/16 08:47 ; Admin Dose 40 MG; Start 12/11/16 at 13:00 Metoclopramide HCl (Reglan) 10 mg Q6H PRN IV NAUSEA AND/OR VOMITING; Start at 14:00 Acetaminophen (Tylenol Tab) 650 mg Q6H PRN PO PAIN LEVEL 1-3 OR FEVER Last administered on 12/15/16 07:55; Admin Dose 650 MG; Start 12/11/16 at 14:00 Acetaminophen/ Hydrocodone Bitart ([place] (5/325)) 1 tab Q6H PRN PO MODERATE PAIN LEVEL 4-6; Start 12/11/16 at 14:00 Morphine Sulfate (morphine) 2 mg Q4H PRN IV SEVERE PAIN LEVEL 7-10; Start 12/11 at 14:00 Pantoprazole (Protonix Tab) 40 mg DAILY@06 PO Last administered on 12/19/16 06 :29; Admin Dose 40 MG; Start 12/12/16 at 06:00 Prochlorperazine 10 mg 10 mg Q4H PRN IV NAUSEA AND/OR VOMITING Last administered on 12/16/16 05:36; Admin Dose 10 MG; Start 12/11/16 at 14:00 Sodium Chloride (NS) 1,000 ml @ 50 mls/hr Q20H IV Last administered on 05:38; Admin Dose 50 MLS/HR; Start 12/12/16 at 15:00 Filgrastim (Neupogen) 480 mcg DAILY@17 SC Last administered on 12/18/16 17:04 ; Admin Dose 480 MCG; Start 12/16/16 at 17:00; Stop 12/25/16 at 17:01 Docusate Sodium (Colace) 100 mg BID PO Last administered on 12/18/16 20:27; Admin Dose 100 MG; Start 12/17/16 at 10:00 Polyethylene Glycol (Miralax) 17 gm DAILY PRN PO CONSTIPATION; Start 12/17/16 at 10:00 LINDA SWANSON MD Dec 19, 2016 09:33
[2016-12-19 10:20] VITALS: BP 137/82; PULSE 86; RESP 16
[2016-12-19] MEDS ORDERED: HEPARIN (100 UNITS/ML) 5 ML SYG CATHETER ONE (16:30)
[2016-12-19] MEDS: FILGRASTIM 480 MCG INJ SC SCH (18:10)
== END 2016-12-19 18:35 | disposition home or self-care (01) | DRG 847 ==
LOC: VRC 12-11 10:23 → MS1 12-11 10:23 → UNDOADMIN 12-11 10:23
PROVIDERS: ADMIT Internal Medicine; ATTEND Internal Medicine
DX: Z51.11 Encounter for antineoplastic chemotherapy (principal); C79.9 Secondary malignant neoplasm of unspecified site; C54.1 Malignant neoplasm of endometrium; K29.70 Gastritis, unspecified, without bleeding
CPT/HCPCS: 36561; 76942; 80048; 80053; 80076; 81001; 81003; 85025; 85610; 85730; 87086; J9209; J9267; C1788; J0690; J0780; J1100; J1200; J1642; J1644; J1650; J2250; J2405; J3010; J7030; J7040; J7050; J9208

== ENCOUNTER 2017-01-03 10:17 | Inpatient (IN) | payer OTHER ==
[~2017-01-03] VITALS: Ht 165.1 cm; Wt 67.9 kg
[2017-01-03 10:45] VITALS: BP 111/66; PULSE 74; RESP 15
[2017-01-03 11:02] VITALS: BP 111/66; RESP 18
[2017-01-03] MEDS ORDERED: ZOLPIDEM 5 MG TAB PO PRN (12:00)
[2017-01-03] MEDS ORDERED: HYDROCODONE/APAP (5/325) TAB PO PRN (12:00)
[2017-01-03 12:12] LABS: ADD SCAN DIFF NO
[2017-01-03] MEDS: morphine 4 MG/ML VIAL IV PRN ×3 (12:14→21:06)
[2017-01-03 12:15] LABS: ABNORMAL IP MESSAGE 1; BASOPHILS % 0.6 % (0.0-2.0); HEMATOCRIT 31.3 % (37.0-47.0); HEMOGLOBIN 10.3 g/dl (12.0-16.0); LYMPHOCYTES # 0.6 10^3/ul (0.8-2.9); LYMPHOCYTES % 10.8 % (15.0-51.0); MEAN CORPUSCULAR HEMOGLOBIN 28.5 pg (29.0-33.0); MEAN CORPUSCULAR HGB CONC 32.9 g/dl (32.0-37.0); MEAN CORPUSCULAR VOLUME 86.7 fl (82.0-101.0); MEAN PLATELET VOLUME 8.9 fl (7.4-10.4); MONOCYTE # 0.5 10^3/ul (0.3-0.9); MONOCYTES % 9.5 % (0.0-11.0); NEUTROPHIL # 4.2 10^3/ul (1.6-7.5); NEUTROPHILS % 78.7 % (39.0-77.0); PLATELET COUNT 365 10^3/UL (140-415); RED BLOOD COUNT 3.61 10^6/ul (4.20-5.40); RED CELL DISTRIBUTION WIDTH 16.8 % (11.5-14.5); WHITE BLOOD COUNT 5.3 10^3/ul (4.8-10.8)
[2017-01-03 12:27] VITALS: Ht 165.1 cm; Wt 67.9 kg
[2017-01-03 12:36] LABS: ALBUMIN/GLOBULIN RATIO 1.81; BILIRUBIN,INDIRECT 0.3 mg/dl (0-1.1); BILIRUBIN,TOTAL 0.3 mg/dl (0.2-1.3); CALCIUM 9.4 mg/dl (8.4-10.2); CREATININE 0.58 mg/dl (0.44-1.00); POTASSIUM 3.8 mmol/L (3.5-5.1); TOTAL PROTEIN 6.2 g/dl (6.1-8.1)
[2017-01-03] MEDS ORDERED: SOD CHLORIDE 0.9% 100 ML ONE (12:47)
[2017-01-03] MEDS ORDERED: IOHEXOL 300MG/ML 150 ML BTL ONE (12:47)
--- NOTE | 2017-01-03 13:09 | HP ---
Date/Time of Note Date/Time of Note DATE: 01/03/17 TIME: 12:49 Assessment/Plan VTE Prophylaxis VTE Prophylaxis Intervention: LMWH Assessment/Plan Assessment/Plan 1. Stage IV endometrial cancer 2. Status post total abdominal hysterectomy and bilateral salpingo-oophorectomy and rectosigmoid anastomosis in September 2016. - admit to [facility] for chemotherapy -per Dr. Hoang in oncology consultation. Completed third cycle of chemotherapy with of ifex/ taxol on last admission 3. Intractable abdominal pain- possible mets. Able to tolerate diet- regular diet - CT abdomen/ pelvis ordered to r/o CA mets - Pain control- Morphine, [place] - zofran for possible nausea 4. Gastritis by history. Continue Protonix for peptic ulcer disease prophylaxis. 5. Lovenox for DVT prophylaxis 6. Pepcid for GI prophylaxis Plan of care dw Dr Mars/staff/patient HPI/ROS Admit Date/Time Admit Date/Time Jan 03, 2017 at 10:17 Hx of Present Illness The patient is a 56-year-old female known to me from previous admission. Patient got admitted for her chemotherapy. During admission, patient has c/o abdominal pain as well. Patient seen by Dr Hoang and CT abdomen/pelvis ordered. Patient has past history of stage IV endometrial carcinoma, status post total abdominal hysterectomy and bilateral salpingo-oophorectomy and rectosigmoid with low anastomosis by Dr. Bueno in September 2016. The patient follows with Dr. Logan in oncology consultation. The patient received chemotherapy on last admission as well. Patient is admitted under Dr Richardson for chemotherapy. Durng assessment, patient denies any chest pain, shortness of breath, fever, chills, nausea/ vomitting. Plan of care eleni staff/patient. ROS Respiratory: no complaints Cardiovascular: no complaints Gastrointestinal: pain Genitourinary: no complaints Musculoskeletal: other Skin: no complaints Neurologic: no complaints PMH/Family/Social Past Medical History Medical History: hypertension Past Surgical History Past Surgical Hx: other (TAHBSO -) Family History Significant Family History: heart disease, diabetes Social History Alcohol Use: none Smoking Status: Never smoker Drug Use: none Exam/Review of Systems Vital Signs Vitals Vital Signs Date Time Temp Pulse Resp B/P Pulse Ox O2 Delivery O2 Flow Rate FiO2 01/03/17 11:02 98.7 18 18 111/66 100 01/03/17 10:45 Room Air Exam Constitutional: alert, oriented, well developed Respiratory: clear to auscultation, crackles/rales, normal air movement Cardiovascular: nl pulses, other (right chest ), regular rate and rhythm Gastrointestinal: soft, tender (diffuse tenderness on mild palpation- CT abd/ pelvis ending) Extremities: normal pulses Neurological: nl mental status, nl speech Labs Result Diagram: 01/03/17 1205 Medications Medications Current Medications Acetaminophen/ Hydrocodone Bitart ([place] (5/325)) 1 tab Q4H PRN PO PAIN; Start 01/03/17 at 12:00 Morphine Sulfate (morphine) 4 mg Q4H PRN IV SEVERE PAIN LEVEL 7-10 Last administered on 01/03/17t 12:14; Admin Dose 4 MG; Start 01/03/17 at 12:00 Ondansetron HCl (Zofran Inj) 4 mg Q6H PRN IV NAUSEA AND/OR VOMITING; Start 01/03 at 12:00 Famotidine (Pepcid) 20 mg BID PO ; Start 01/03/17 at 21:00 Enoxaparin Sodium (Lovenox) 40 mg DAILY SC ; Start 01/04/17 at 09:00 Zolpidem Tartrate (Ambien) 5 mg HS PRN PO INSOMNIA; Start 01/03/17 at 12:00 LATRICIA GABRIEL Jan 03, 2017 13:00
[2017-01-03] MEDS: SOD CHLORIDE 0.9% 1,000 ML IV SCH (14:41)
[2017-01-03 15:05] LABS: ADD UMIC NO; UR ASCORBIC ACID NEGATIVE (NEGATIVE); UR BILIRUBIN (Dip) NEGATIVE (NEGATIVE); UR BLOOD (Dip) NEGATIVE (NEGATIVE); UR CLARITY CLEAR (CLEAR); UR COLOR YELLOW (YELLOW); UR GLUCOSE (Dip) NEGATIVE (NEGATIVE); UR KETONES (Dip) NEGATIVE (NEGATIVE); UR LEUKOCYTE ESTERASE (Dip) NEGATIVE Leu/ul (NEGATIVE); UR NITRITE (Dip) NEGATIVE (NEGATIVE); UR SPECIFIC GRAVITY (Dip) 1.041 (1.003-1.030); UR TOTAL PROTEIN (Dip) NEGATIVE (NEGATIVE); UR UROBILINOGEN (Dip) NEGATIVE (NEGATIVE)
--- NOTE | 2017-01-03 16:06 | RADRPT ---
PROCEDURE: CT Chest, Abdomen and Pelvis with contrast. CLINICAL INDICATION: Metastatic uterine cancer, staging. TECHNIQUE: Volumetrically-acquired images of the chest, abdomen and pelvis were obtained following the intravenous administration of 100 cc of Omnipaque-300. Images were then reformatted in the axial , sagittal, and coronal planes. CTDIvol = 13.26 mGy; DLP = 942.38 mGy-cm. One or more of the following dose reduction techniques were utilized: - Automated exposure control. - Adjustment of the mA and/or kV according to patient size. - Use of iterative reconstruction technique. COMPARISON: CT abdomen/pelvis 10/30/2016. FINDINGS: ONCOLOGIC FINDINGS Measurable disease (as per RESIST 1.1) with target lesions as follows: Right cardiophrenic lymph node: 1.8 cm in short axis (3-76), previously 1.4 cm. Anterior aortocaval lymph node: 1.7 cm in short axis (3-129), unchanged. Posterior aortocaval lymph node: 1.6 cm in short axis (3-129), previously 1.2 cm. Right iliac chain sonny mass: 6.9 x 3.6 cm (3-206), previously 6.1 x 3.3 cm. Nonmeasurable disease: Retroperitoneal lymphadenopathy has become more confluent since previous examination. Extensive presacral thickening is now observed measuring approximately 3.1 cm in thickness and juan ing the length of the sacrum. Numerous enhancing confluent nodules are seen throughout the peritoneum and have increased since cristine or examination. New Lesions: None. Additional comments: The uterus is surgically absent. Abnormal enhancing nodular soft tissue along the vaginal cuff is present and increased. A surgical drain within the pelvis is no longer present . Trace ascites is now observed. A right-sided port is in place and terminates within the right at rium. There is a 1.7 cm anterior mediastinal lymph node. ADDITIONAL FINDINGS Limited imaging of the lower neck is unremarkable. The heart is not enlarged. There is no pericardial effusion. The thoracic aorta is normal in calibe r. The pulmonary arteries are not enlarged. Trace bilateral pleural effusions are present. There is a calcified granuloma of the left upper lob e. There is no pulmonary consolidation or concerning pulmonary nodule. The tracheobronchial tree i s normal in caliber. The liver and spleen are homogeneous in enhancement. There is no evidence of enhancing/hypoenhancin g lesion. The hepatic and portal veins are patent. The gallbladder, pancreas and adrenal glands ar e unremarkable. The kidneys are symmetric in size and enhancement. Mild moderate right hydronephrosis and mild left hydronephrosis are grossly unchanged. There is no perinephric edema. The abdominal aorta is normal in caliber. The stomach and small and large intestines are unremarkable. Surgical changes of the distal colon a re observed. Degenerative changes of the spine are present. Body wall soft tissues are unremarkable. IMPRESSION: History of uterine cancer with increased abdominopelvic lymphadenopathy and peritoneal carcinomatosi s, as described above. Enlarged anterior mediastinal and cardiophrenic lymph nodes are also present . No evidence of pulmonary metastatic disease. Mild moderate right and mild left hydronephrosis, unchanged. RPTAT: HLST .Jahaira Diehl MD, Date Time Electronically viewed and signed by .Jahaira Diehl MD, on 01/03/2017 16:06 .T/
[2017-01-03 17:05] VITALS: BP 126/68; PULSE 75; RESP 20
--- NOTE | 2017-01-03 17:20 | CONS ---
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 - CT scan shows increased abdominopelvic lymphadenopathy and peritoneal carcinomatosis, for instance right cardiophrenic LN increased from 1.4 to 1.8, anterior aortocaval lymph node unchanged, posterior aortocaval lymph node increased from 1.2 to 1.6cm, right iliac chain sonny mass now 6.9 x 3.6 cm, previously 6.1 x 3.3 cm, and RP LAD more confluent, with extensive presacral thickening and numerous enhancing confluent nodules throughout the peritoneum and increased since prior. Trace ascites. - Plan was for a total of 4 cycles of ifosfamide/taxol followd by 4 cycles of carbo/taxol per discussion with Dr. Bueno. Given worsening abdominal pain and scan consistent with progression of disease, will switch to carbo/taxol now. - I have also asked Dr. Patino to see the patient for pain control - Patient received decadron 20 mg PO 12 hours and 6 hours prior to paclitaxel - Hgb stable - zofran prn, added compazine and reglan prn nausea/vomiting. - s/p port placement during the last admission Patient should follow-up with me in clinic Chemo regimen Carboplatin AUC 6 IV D1 Taxol 175 mg/m2 IV D1 Problems: Consultation Date/Type/Reason Admit Date/Time Jan 03, 2017 at 10:17 Date of Consultation: Jan 03, 2017 Type of Consultation: Oncology Reason for Consultation Uterine carcinosarcoma Hx of Present Illness The patient is a 56-year-old female with recent diagnosis of stage IV endometrial carcinosarcoma. She underwent massive surgical procedure with CYNDI/ BSO and recto-sigmoid en-bloc with low anastomosis per Dr. Bueno. She had extensive positive retroperitoneal lymph nodes removed but the confluence of disease makes her classified as millimeter residual disease. Per Dr. Kitchen of pathology, tumor is poorly differentiated though mostly sarcoma (90%) in the metastases. Patient received cycle 3 ifosfamide/taxol on 12/13/16. She is now being admitted for cycle 4 of therapy, however has developed abdominal pain over the last 4 days and is eating very little. She endorses worsening pain with eating. New CT CAP with contrast 01/03/17 demonstrates increased abdominopelvic LAD and peritoneal carcinomatosis, with enlarged anterior mediastinal and cardiophrenic lymph nodes. No evidence of pulmonary metastatic disease. Past Medical History Hypertension, Dyslipidemia, gastritis Past Surgical History The patient is status post cholecystectomy and also history of biopsy of left breast Family History Significant Family History: other (Mother has hypertension, dyslipidemia and diabetes. Father due to heart disease, details not available, and father also had CVA.) Social History Alcohol Use: none Smoking Status: Never smoker Drug Use: none Respiratory: no complaints Cardiovascular: no complaints Gastrointestinal: pain Genitourinary: no complaints Musculoskeletal: other Skin: no complaints Neurologic: no complaints Past Medical History Medical History: hypertension Past Surgical History Past Surgical Hx: other (TAHBSO -) Social History Alcohol Use: none Smoking Status: Never smoker Drug Use: none Exam/Review of Systems Vital Signs Vitals Vital Signs Date Time Temp Pulse Resp B/P Pulse Ox O2 Delivery O2 Flow Rate FiO2 01/03/17 17:05 99.0 75 20 126/68 100 Room Air Exam Constitutional: alert, oriented Head: normocephalic Eyes: nl conjunctiva Neck: supple Respiratory: clear to auscultation Cardiovascular: regular rate and rhythm Gastrointestinal: soft, tender Musculoskeletal: nl extremities to inspection 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 Results Result Diagram: 01/03/17 1205 01/03/17 1205 Results 24 hrs Laboratory Tests Test 01/03/17 12:05 01/03/17 14:45 White Blood Count 5.3 # Red Blood Count 3.61 L Hemoglobin 10.3 L Hematocrit 31.3 L Mean Corpuscular Volume 86.7 Mean Corpuscular Hemoglobin 28.5 L Mean Corpuscular Hemoglobin Concent 32.9 Red Cell Distribution Width 16.8 H Platelet Count 365 # Mean Platelet Volume 8.9 Neutrophils % 78.7 H Lymphocytes % 10.8 L Monocytes % 9.5 Eosinophils % 0.0 Basophils % 0.6 Nucleated Red Blood Cells % 0.0 Neutrophils # 4.2 Lymphocytes # 0.6 L Monocytes # 0.5 Eosinophils # 0.0 Basophils # 0.0 Nucleated Red Blood Cells # 0.0 Sodium Level 141 Potassium Level 3.8 Chloride Level 101 Carbon Dioxide Level 28 Anion Gap 16 Blood Urea Nitrogen 14 Creatinine 0.58 Glucose Level 84 Calcium Level 9.4 Total Bilirubin 0.3 Direct Bilirubin 0.00 Indirect Bilirubin 0.3 Aspartate Amino Transf (AST/SGOT) 53 H Alanine Aminotransferase (ALT/SGPT) 48 Alkaline Phosphatase 75 Total Protein 6.2 Albumin 4.0 Globulin 2.20 Albumin/Globulin Ratio 1.81 Urine Color YELLOW Urine Clarity CLEAR Urine pH 6.0 Urine Specific [place] 1.041 H Urine Ketones NEGATIVE Urine Nitrite NEGATIVE Urine Bilirubin NEGATIVE Urine Urobilinogen NEGATIVE Urine Leukocyte Esterase NEGATIVE Urine Hemoglobin NEGATIVE Urine Glucose NEGATIVE Urine Total Protein NEGATIVE Medications Medications Current Medications Acetaminophen/ Hydrocodone Bitart ([place] (5/325)) 1 tab Q4H PRN PO PAIN; Start 01/03/17 at 12:00 Morphine Sulfate (morphine) 4 mg Q4H PRN IV SEVERE PAIN LEVEL 7-10 Last administered on 01/03/17 17:08; Admin Dose 4 MG; Start 01/03/17 at 12:00 Ondansetron HCl (Zofran Inj) 4 mg Q6H PRN IV NAUSEA AND/OR VOMITING; Start 01/03 at 12:00 Famotidine (Pepcid) 20 mg BID PO ; Start 01/03/17 at 21:00 Enoxaparin Sodium (Lovenox) 40 mg DAILY SC ; Start 01/04/17 at 09:00 Zolpidem Tartrate 5 mg 5 mg HS PRN PO INSOMNIA; Start 01/03/17 at 12:00 Sodium Chloride (NS) 1,000 ml @ 50 mls/hr Q20H IV Last administered on 14:41; Admin Dose 50 MLS/HR; Start 01/03/17 at 13:40 LINDA SWANSON MD Jan 03, 2017 17:20
[2017-01-03 19:30] VITALS: BP 97/54; RESP 18
[2017-01-03] MEDS: FAMOTIDINE 20 MG TAB PO SCH (21:05)
[2017-01-04] VITALS (7 sets, daily range): BP systolic 119–133; BP diastolic 63–73; PULSE 74–95; RESP 18
[2017-01-04] MEDS: morphine 4 MG/ML VIAL IV PRN (01:05)
[2017-01-04] MEDS: HYDROmorphONE 1 MG/ML SYG IV PRN ×2 (05:21→09:35)
[2017-01-04 05:37] LABS: ADD SCAN DIFF NO
[2017-01-04 05:44] LABS: ABNORMAL IP MESSAGE 1; BASOPHILS % 0.5 % (0.0-2.0); HEMATOCRIT 31.4 % (37.0-47.0); HEMOGLOBIN 10.2 g/dl (12.0-16.0); LYMPHOCYTES # 0.5 10^3/ul (0.8-2.9); LYMPHOCYTES % 9.1 % (15.0-51.0); MEAN CORPUSCULAR HEMOGLOBIN 28.3 pg (29.0-33.0); MEAN CORPUSCULAR HGB CONC 32.5 g/dl (32.0-37.0); MEAN PLATELET VOLUME 9.3 fl (7.4-10.4); MONOCYTE # 0.7 10^3/ul (0.3-0.9); MONOCYTES % 11.4 % (0.0-11.0); NEUTROPHIL # 4.5 10^3/ul (1.6-7.5); NEUTROPHILS % 78.6 % (39.0-77.0); PLATELET COUNT 345 10^3/UL (140-415); RED BLOOD COUNT 3.61 10^6/ul (4.20-5.40); RED CELL DISTRIBUTION WIDTH 16.9 % (11.5-14.5); WHITE BLOOD COUNT 5.7 10^3/ul (4.8-10.8)
[2017-01-04 06:14] LABS: CREATININE 0.62 mg/dl (0.44-1.00); POTASSIUM 3.5 mmol/L (3.5-5.1)
[2017-01-04] MEDS: FAMOTIDINE 20 MG TAB PO SCH (09:27)
[2017-01-04] MEDS: ENOXAPARIN 40 MG/0.4 ML SYG SC SCH (09:28)
[2017-01-04] MEDS ORDERED: DIPHENHYDRAMINE 50 MG INJ IV PRN (09:30)
[2017-01-04] MEDS ORDERED: PROCHLORPERAZINE 10 MG TAB PO PRN (09:30)
[2017-01-04] MEDS ORDERED: HYDROCORTISONE 100 MG INJ IV PRN (09:30)
[2017-01-04] MEDS ORDERED: METOCLOPRAMIDE 10 MG TAB PO PRN (09:30)
[2017-01-04] MEDS ORDERED: ONDANSETRON 4 MG TAB PO PRN (09:30)
[2017-01-04] MEDS: DEXAMETHASONE 4 MG TAB PO SCH ×2 (09:36→16:11)
--- NOTE | 2017-01-04 09:43 | CONS ---
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 - CT scan shows increased abdominopelvic lymphadenopathy and peritoneal carcinomatosis, for instance right cardiophrenic LN increased from 1.4 to 1.8, anterior aortocaval lymph node unchanged, posterior aortocaval lymph node increased from 1.2 to 1.6cm, right iliac chain sonny mass now 6.9 x 3.6 cm, previously 6.1 x 3.3 cm, and RP LAD more confluent, with extensive presacral thickening and numerous enhancing confluent nodules throughout the peritoneum and increased since prior. Trace ascites. - Plan was for a total of 4 cycles of ifosfamide/taxol followd by 4 cycles of carbo/taxol per discussion with Dr. Bueno. Given worsening abdominal pain and scan consistent with progression of disease, will switch to carbo/taxol now. Per chemopharmacy, will be available at 2100 tonight. - I have also asked Dr. Patino to see the patient for pain control - Patient received decadron 20 mg PO 12 hours and 6 hours prior to paclitaxel - Hgb stable - zofran prn, added compazine and reglan prn nausea/vomiting. - s/p port placement during the last admission Patient should follow-up with me in clinic Chemo regimen Carboplatin AUC 6 IV D1 Taxol 175 mg/m2 IV D1 Problems: Consultation Date/Type/Reason Admit Date/Time Jan 03, 2017 at 10:17 Initial Consult Date 01/03/17 Type of Consultation: Oncology 24 HR Interval Summary Free Text/Dictation Patient complains of abdominal pain, worse with eating. 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 Results Result Diagram: 01/04/17 0456 01/04/17 0456 Results 24 hrs Laboratory Tests Test 01/03/17 12:05 01/03/17 14:45 01/04/17 04:56 White Blood Count 5.3 # 5.7 Red Blood Count 3.61 L 3.61 L Hemoglobin 10.3 L 10.2 L Hematocrit 31.3 L 31.4 L Mean Corpuscular Volume 86.7 87.0 Mean Corpuscular Hemoglobin 28.5 L 28.3 L Mean Corpuscular Hemoglobin Concent 32.9 32.5 Red Cell Distribution Width 16.8 H 16.9 H Platelet Count 365 # 345 Mean Platelet Volume 8.9 9.3 Neutrophils % 78.7 H 78.6 H Lymphocytes % 10.8 L 9.1 L Monocytes % 9.5 11.4 H Eosinophils % 0.0 0.0 Basophils % 0.6 0.5 Nucleated Red Blood Cells % 0.0 0.0 Neutrophils # 4.2 4.5 Lymphocytes # 0.6 L 0.5 L Monocytes # 0.5 0.7 Eosinophils # 0.0 0.0 Basophils # 0.0 0.0 Nucleated Red Blood Cells # 0.0 0.0 Sodium Level 141 140 Potassium Level 3.8 3.5 Chloride Level 101 101 Carbon Dioxide Level 28 27 Anion Gap 16 16 Blood Urea Nitrogen 14 14 Creatinine 0.58 0.62 Glucose Level 84 97 Calcium Level 9.4 9.0 Total Bilirubin 0.3 Direct Bilirubin 0.00 Indirect Bilirubin 0.3 Aspartate Amino Transf (AST/SGOT) 53 H Alanine Aminotransferase (ALT/SGPT) 48 Alkaline Phosphatase 75 Total Protein 6.2 Albumin 4.0 Globulin 2.20 Albumin/Globulin Ratio 1.81 Urine Color YELLOW Urine Clarity CLEAR Urine pH 6.0 Urine Specific [place] 1.041 H Urine Ketones NEGATIVE Urine Nitrite NEGATIVE Urine Bilirubin NEGATIVE Urine Urobilinogen NEGATIVE Urine Leukocyte Esterase NEGATIVE Urine Hemoglobin NEGATIVE Urine Glucose NEGATIVE Urine Total Protein NEGATIVE Medications Medications Current Medications Acetaminophen/ Hydrocodone Bitart ([place] (5/325)) 1 tab Q4H PRN PO PAIN Last administered on 01/03/17t 23:44; Admin Dose 1 TAB; Start 01/03/17 at 12:00 Ondansetron HCl (Zofran Inj) 4 mg Q6H PRN IV NAUSEA AND/OR VOMITING; Start 01/03 at 12:00 Famotidine (Pepcid) 20 mg BID PO Last administered on 01/04/17 09:27; Admin Dose 20 MG; Start 01/03/17 at 21:00 Enoxaparin Sodium (Lovenox) 40 mg DAILY SC Last administered on 01/04/17 09:28 ; Admin Dose 40 MG; Start 01/04/17 at 09:00 Zolpidem Tartrate 5 mg 5 mg HS PRN PO INSOMNIA; Start 01/03/17 at 12:00 Sodium Chloride ([place]) 1,000 ml @ 50 mls/hr Q20H IV Last administered on 14:41; Admin Dose 50 MLS/HR; Start 01/03/17 at 13:40 Hydromorphone HCl (Dilaudid) 1 mg Q2H PRN IV PAIN Last administered on 09:35; Admin Dose 1 MG; Start 01/04/17 at 01:30 Dexamethasone (Decadron) 20 mg Q6H PO Last administered on 01/04/17 09:36; Admin Dose 20 MG; Start 01/04/17 at 09:30; Stop 01/04/17 at 15:31 Ondansetron HCl (Zofran Tab) 8 mg Q8H PRN PO NAUSEA AND/OR VOMITING; Start 01/04 at 09:30 Prochlorperazine (Compazine) 10 mg Q8H PRN PO NAUSEA AND/OR VOMITING; Start 01/04/17 at 09:30 Metoclopramide HCl (Reglan) 10 mg Q8H PRN PO NAUSEA AND/OR VOMITING; Start 01/04 at 09:30 Hydrocortisone (Solu-Cortef) 100 mg PRN PRN IV X 1 FOR RXN TO CHEMO; Start 01/04 at 09:30 Diphenhydramine HCl (Benadryl) 50 mg PRN PRN IV RXN TO CHEMO, X 1 DOSE; Start 01/04/17 at 09:30 LINDA SWANSON MD Jan 04, 2017 09:43
[2017-01-04] MEDS: SOD CHLORIDE 0.9% 1,000 ML IV SCH (10:55)
[2017-01-04] MEDS ORDERED: METHADONE 5 MG TAB PO SCH (13:30)
--- NOTE | 2017-01-04 15:15 | PN ---
Date/Time of Note Date/Time of Note DATE: 01/04/17 TIME: 15:09 Assessment/Plan VTE Prophylaxis VTE Prophylaxis Intervention: SCD's Lines/Catheters IV C[facility]ter [facility]from [facility] portacath Urinary Cath still in place: No Assessment/Plan Chief Complaint/Hosp Course Patient's complains of epigastric tenderness and nausea, denies any emesis denies any chest pain denies shortness of breath. Problems: Assessment/Plan - Metastatic uterine carcinosarcoma, admitted for cycle 4 of ifex/ taxol, however now presenting with worsening abdominal pain and CT scan consistent with progression of disease. Pending starting chemotherapy with carbo/taxol. Dr. Hoang is following in oncology consultation. Dr. Doyle is following in pain management consultation. - Status post total abdominal hysterectomy and bilateral salpingo-oophorectomy and rectosigmoid anastomosis in September [address] Bueno. - Gastritis by history, continue Pepcid. Further recommendations based on clinical course. Plan of care discussed with Dr. Richardson. Exam/Review of Systems Vital Signs Vitals Vital Signs Date Time Temp Pulse Resp B/P Pulse Ox O2 Delivery O2 Flow Rate FiO2 01/04/17 09:15 97.6 87 18 129/69 95 01/03/17 17:05 Room Air Intake and Output 01/03/17 01/03/17 01/04/17 15:00 23:00 07:00 Intake Total 1110 ml 730 ml Balance 1110 ml 730 ml Exam Constitutional: alert, oriented Head: atraumatic, normocephalic Neck: supple Respiratory: normal air movement Cardiovascular: nl pulses Gastrointestinal: non-tender, other (Epigastric tenderness), soft Musculoskeletal: nl gait and stance Extremities: normal pulses Neurological: nl mental status Results Result Diagram: 01/04/17 0456 01/04/17 0456 Results 24 hrs Laboratory Tests Test 01/04/17 04:56 White Blood Count 5.7 Red Blood Count 3.61 L Hemoglobin 10.2 L Hematocrit 31.4 L Mean Corpuscular Volume 87.0 Mean Corpuscular Hemoglobin 28.3 L Mean Corpuscular Hemoglobin Concent 32.5 Red Cell Distribution Width 16.9 H Platelet Count 345 Mean Platelet Volume 9.3 Neutrophils % 78.6 H Lymphocytes % 9.1 L Monocytes % 11.4 H Eosinophils % 0.0 Basophils % 0.5 Nucleated Red Blood Cells % 0.0 Neutrophils # 4.5 Lymphocytes # 0.5 L Monocytes # 0.7 Eosinophils # 0.0 Basophils # 0.0 Nucleated Red Blood Cells # 0.0 Sodium Level 140 Potassium Level 3.5 Chloride Level 101 Carbon Dioxide Level 27 Anion Gap 16 Blood Urea Nitrogen 14 Creatinine 0.62 Glucose Level 97 Calcium Level 9.0 Medications Medications Current Medications Ondansetron HCl (Zofran Inj) 4 mg Q6H PRN IV NAUSEA AND/OR VOMITING; Start 01/03 at 12:00 Famotidine (Pepcid) 20 mg BID PO Last administered on 01/04/17 09:27; Admin Dose 20 MG; Start 01/03/17 at 21:00 Enoxaparin Sodium (Lovenox) 40 mg DAILY SC Last administered on 01/04/17 09:28 ; Admin Dose 40 MG; Start 01/04/17 at 09:00 Zolpidem Tartrate 5 mg 5 mg HS PRN PO INSOMNIA; Start 01/03/17 at 12:00 Sodium Chloride (NS) 1,000 ml @ 50 mls/hr Q20H IV Last administered on 10:55; Admin Dose 50 MLS/HR; Start 01/03/17 at 13:40 Hydromorphone HCl (Dilaudid) 1 mg Q2H PRN IV PAIN Last administered on 09:35; Admin Dose 1 MG; Start 01/04/17 at 01:30 Dexamethasone (Decadron) 20 mg Q6H PO Last administered on 01/04/17 09:36; Admin Dose 20 MG; Start 01/04/17 at 09:30; Stop 01/04/17 at 15:31 Ondansetron HCl (Zofran Tab) 8 mg Q8H PRN PO NAUSEA AND/OR VOMITING; Start 01/04 at 09:30 Prochlorperazine (Compazine) 10 mg Q8H PRN PO NAUSEA AND/OR VOMITING; Start 01/04/17 at 09:30 Metoclopramide HCl (Reglan) 10 mg Q8H PRN PO NAUSEA AND/OR VOMITING; Start 01/04 at 09:30 Hydrocortisone (Solu-Cortef) 100 mg PRN PRN IV X 1 FOR RXN TO CHEMO; Start 01/04 at 09:30 Diphenhydramine HCl (Benadryl) 50 mg PRN PRN IV RXN TO CHEMO, X 1 DOSE; Start 01/04/17 at 09:30 Methylnaltrexone [place] (Relistor) 12 mg Q48H SC ; Start 01/04/17 at 13:30 Methadone HCl (Methadone Liq) 3 mg Q8 PO ; Start 01/04/17 at 13:30 ELVIN TEIXEIRA Jan 04, 2017 15:15
[2017-01-04] MEDS: METHADONE (1 MG/ML 5 ML PO UD SYG) PO SCH ×2 (16:13→21:34)
[2017-01-04] MEDS: METHYLNALTREXONE 12 MG/0.6 ML VIAL SC SCH (16:13)
[2017-01-04] MEDS ORDERED: PALONOSETRON PO SCH (21:00)
[2017-01-04] MEDS ORDERED: [UNRECOGNIZED DRUG - OTHER] PO SCH (21:00)
[2017-01-04] MEDS ORDERED: FAMOTIDINE 20 MG INJ IV SCH (21:30)
[2017-01-04] MEDS ORDERED: ONDANSETRON INJ 16 MG, DEXAMETHASONE 10 MG/ML 10 MG in SOD CHLORIDE 0.9% 50 ML IVPB SCH (21:30)
[2017-01-04] MEDS ORDERED: DIPHENHYDRAMINE 50 MG INJ IV SCH (21:30)
[2017-01-04] MEDS ORDERED: SOD CHLORIDE 0.9% IV SCH (22:00)
[2017-01-04] MEDS ORDERED: CARBOPLATIN IV SCH (22:00)
[2017-01-05] VITALS (14 sets, daily range): BP systolic 116–144; BP diastolic 62–82; PULSE 74–88; RESP 14–18
[2017-01-05] MEDS: HYDROmorphONE 1 MG/ML SYG IV PRN ×3 (00:45→18:45)
[2017-01-05] MEDS ORDERED: EVAC CONTAINER IV SCH (02:00)
[2017-01-05] MEDS ORDERED: SOD CHLORIDE 0.9% IV SCH (02:00)
[2017-01-05] MEDS ORDERED: PACLITAXEL IV SCH ×2 (02:00)
[2017-01-05] MEDS ORDERED: DEXTROSE IV SCH (02:00)
[2017-01-05] MEDS: SOD CHLORIDE 0.9% 1,000 ML IV SCH ×2 (05:40→12:30)
[2017-01-05] MEDS: METHADONE (1 MG/ML 5 ML PO UD SYG) PO SCH ×3 (06:26→22:09)
[2017-01-05 09:25] LABS: ADD SCAN DIFF NO
[2017-01-05] MEDS: FAMOTIDINE 20 MG TAB PO SCH ×2 (09:28→20:28)
[2017-01-05] MEDS: ENOXAPARIN 40 MG/0.4 ML SYG SC SCH (09:30)
[2017-01-05 09:35] LABS: ABNORMAL IP MESSAGE 1; HEMATOCRIT 30.9 % (37.0-47.0); HEMOGLOBIN 10.1 g/dl (12.0-16.0); LYMPHOCYTES # 0.2 10^3/ul (0.8-2.9); LYMPHOCYTES % 3.6 % (15.0-51.0); MEAN CORPUSCULAR HEMOGLOBIN 28.6 pg (29.0-33.0); MEAN CORPUSCULAR HGB CONC 32.7 g/dl (32.0-37.0); MEAN CORPUSCULAR VOLUME 87.5 fl (82.0-101.0); MEAN PLATELET VOLUME 9.3 fl (7.4-10.4); MONOCYTE # 0.1 10^3/ul (0.3-0.9); MONOCYTES % 1.2 % (0.0-11.0); NEUTROPHIL # 4.7 10^3/ul (1.6-7.5); NEUTROPHILS % 94.8 % (39.0-77.0); PLATELET COUNT 375 10^3/UL (140-415); RED BLOOD COUNT 3.53 10^6/ul (4.20-5.40); RED CELL DISTRIBUTION WIDTH 16.8 % (11.5-14.5); WHITE BLOOD COUNT 4.9 10^3/ul (4.8-10.8)
[2017-01-05 09:49] LABS: CALCIUM 8.6 mg/dl (8.4-10.2); CREATININE 0.98 mg/dl (0.44-1.00); POTASSIUM 3.6 mmol/L (3.5-5.1)
--- NOTE | 2017-01-05 11:48 | PN ---
Date/Time of Note Date/Time of Note DATE: 01/05/17 TIME: 11:48 Assessment/Plan VTE Prophylaxis VTE Prophylaxis Intervention: other Lines/Catheters [facility]acath Urinary Cath still in place: No Assessment/Plan Chief Complaint/Hosp Course - Metastatic uterine carcinosarcoma, admitted for cycle 4 of ifex/ taxol, however now presenting with worsening abdominal pain and CT scan consistent with progression of disease. Pending starting chemotherapy with carbo/taxol. Dr. Hoang is following in oncology consultation. Dr. Doyle is following in pain management consultation. - Status post total abdominal hysterectomy and bilateral salpingo-oophorectomy and rectosigmoid anastomosis in September [address] Bueno. - Gastritis by history, continue Pepcid. Problems: Subjective 24 Hr Interval Summary Free Text/Dictation Patient denies any pain Exam/Review of Systems Vital Signs Vitals Vital Signs Date Time Temp Pulse Resp B/P Pulse Ox O2 Delivery O2 Flow Rate FiO2 01/05/17 08:04 98.5 85 14 134/82 100 01/05/17 07:02 Room Air Intake and Output 01/04/17 01/04/17 01/05/17 15:00 23:00 07:00 Intake Total 300 ml 1459 ml 1220 ml Output Total 900 ml Balance 300 ml 1459 ml 320 ml Exam Constitutional: well developed Head: atraumatic, normocephalic Neck: supple Respiratory: clear to auscultation Cardiovascular: regular rate and rhythm Gastrointestinal: non-tender, soft Extremities: normal pulses Results Result Diagram: 01/05/17 0916 01/05/17 0916 Results 24 hrs Laboratory Tests Test 01/05/17 09:16 White Blood Count 4.9 Red Blood Count 3.53 L Hemoglobin 10.1 L Hematocrit 30.9 L Mean Corpuscular Volume 87.5 Mean Corpuscular Hemoglobin 28.6 L Mean Corpuscular Hemoglobin Concent 32.7 Red Cell Distribution Width 16.8 H Platelet Count 375 Mean Platelet Volume 9.3 Neutrophils % 94.8 H Lymphocytes % 3.6 L Monocytes % 1.2 Eosinophils % 0.0 Basophils % 0.0 Nucleated Red Blood Cells % 0.0 Neutrophils # 4.7 Lymphocytes # 0.2 L Monocytes # 0.1 L Eosinophils # 0.0 Basophils # 0.0 Nucleated Red Blood Cells # 0.0 Sodium Level 137 Potassium Level 3.6 Chloride Level 106 Carbon Dioxide Level 22 Anion Gap 13 Blood Urea Nitrogen 17 Creatinine 0.98 Glucose Level 151 Calcium Level 8.6 Medications Medications Current Medications Ondansetron HCl (Zofran Inj) 4 mg Q6H PRN IV NAUSEA AND/OR VOMITING; Start 01/03 at 12:00 Enoxaparin Sodium (Lovenox) 40 mg DAILY SC Last administered on 01/05/17 09:30 ; Admin Dose 40 MG; Start 01/04/17 at 09:00 Zolpidem Tartrate 5 mg 5 mg HS PRN PO INSOMNIA; Start 01/03/17 at 12:00 Sodium Chloride (NS) 1,000 ml @ 50 mls/hr Q20H IV Last administered on 10:55; Admin Dose 50 MLS/HR; Start 01/03/17 at 13:40 Hydromorphone HCl (Dilaudid) 1 mg Q2H PRN IV PAIN Last administered on 03:20; Admin Dose 1 MG; Start 01/04/17 at 01:30 Ondansetron HCl (Zofran Tab) 8 mg Q8H PRN PO NAUSEA AND/OR VOMITING; Start 01/04 at 09:30 Prochlorperazine (Compazine) 10 mg Q8H PRN PO NAUSEA AND/OR VOMITING; Start 01/04/17 at 09:30 Metoclopramide HCl (Reglan) 10 mg Q8H PRN PO NAUSEA AND/OR VOMITING; Start 01/04 at 09:30 Hydrocortisone (Solu-Cortef) 100 mg PRN PRN IV X 1 FOR RXN TO CHEMO; Start 01/04 at 09:30 Diphenhydramine HCl (Benadryl) 50 mg PRN PRN IV RXN TO CHEMO, X 1 DOSE; Start 01/04/17 at 09:30 Methylnaltrexone [place] (Relistor) 12 mg Q48H SC Last administered on 16:13; Admin Dose 12 MG; Start 01/04/17 at 13:30 Methadone HCl (Methadone Liq) 3 mg Q8 PO Last administered on 01/05/17 06:26; Admin Dose 3 MG; Start 01/04/17 at 13:30 Famotidine (Pepcid) 20 mg BID PO Last administered on 01/05/17t 09:28; Admin Dose 20 MG; Start 01/05/17 at 09:00 MARCO XAVIER Jan 05, 2017 11:48
--- NOTE | 2017-01-05 13:49 | CONS ---
Date/Time of Note Date/Time of Note DATE: 01/05/17 TIME: 13:47 Assessment/Plan Assessment/Plan Chief Complaint/Hosp Course 56yo female with metastatic uterine carcinosarcoma sarcoma now admitted for cycle 4 of ifex/ taxol, however now presenting with worsening abdominal pain and CT scan consistent with progression of disease. - CT scan shows increased abdominopelvic lymphadenopathy and peritoneal carcinomatosis, for instance right cardiophrenic LN increased from 1.4 to 1.8, anterior aortocaval lymph node unchanged, posterior aortocaval lymph node increased from 1.2 to 1.6cm, right iliac chain sonny mass now 6.9 x 3.6 cm, previously 6.1 x 3.3 cm, and RP LAD more confluent, with extensive presacral thickening and numerous enhancing confluent nodules throughout the peritoneum and increased since prior. Trace ascites. - Plan was for a total of 4 cycles of ifosfamide/taxol followd by 4 cycles of carbo/taxol per discussion with Dr. Bueno. Given worsening abdominal pain and scan consistent with progression of disease, carbo/taxol was started last night. - continue pain control recommendations per Dr. Patino - Patient received decadron 20 mg PO 12 hours and 6 hours prior to paclitaxel - Hgb stable - zofran prn, added compazine and reglan prn nausea/vomiting. - s/p port placement during the last admission Patient should follow-up with me in clinic Problems: Consultation Date/Type/Reason Admit Date/Time Jan 03, 2017 at 10:17 Initial Consult Date 01/03/17 Type of Consultation: Oncology Reason for Consultation uterine carcinosarcoma Referring Provider: ARLENE CHOWDARY MD 24 HR Interval Summary Free Text/Dictation pt received her chemotherapy yesterday. c/o abdominal pain. continues on methadone and dilaudid Exam/Review of Systems Vital Signs Vitals Vital Signs Date Time Temp Pulse Resp B/P Pulse Ox O2 Delivery O2 Flow Rate FiO2 01/05/17 08:04 98.5 85 14 134/82 100 01/05/17 07:02 Room Air Intake and Output 01/04/17 01/04/17 01/05/17 15:00 23:00 07:00 Intake Total 300 ml 1459 ml 1220 ml Output Total 900 ml Balance 300 ml 1459 ml 320 ml Exam Constitutional: alert, frail, oriented Psych: anxiety, depression Head: atraumatic, normocephalic Eyes: nl conjunctiva ENMT: nl external ears & nose Neck: non-tender, supple Respiratory: clear to auscultation Cardiovascular: nl pulses, regular rate and rhythm Gastrointestinal: tender Musculoskeletal: nl extremities to inspection Results Result Diagram: 01/05/1716 01/05/17 0916 Results 24 hrs Laboratory Tests Test 01/05/17 09:16 White Blood Count 4.9 Red Blood Count 3.53 L Hemoglobin 10.1 L Hematocrit 30.9 L Mean Corpuscular Volume 87.5 Mean Corpuscular Hemoglobin 28.6 L Mean Corpuscular Hemoglobin Concent 32.7 Red Cell Distribution Width 16.8 H Platelet Count 375 Mean Platelet Volume 9.3 Neutrophils % 94.8 H Lymphocytes % 3.6 L Monocytes % 1.2 Eosinophils % 0.0 Basophils % 0.0 Nucleated Red Blood Cells % 0.0 Neutrophils # 4.7 Lymphocytes # 0.2 L Monocytes # 0.1 L Eosinophils # 0.0 Basophils # 0.0 Nucleated Red Blood Cells # 0.0 Sodium Level 137 Potassium Level 3.6 Chloride Level 106 Carbon Dioxide Level 22 Anion Gap 13 Blood Urea Nitrogen 17 Creatinine 0.98 Glucose Level 151 Calcium Level 8.6 Medications Medications Current Medications Ondansetron HCl (Zofran Inj) 4 mg Q6H PRN IV NAUSEA AND/OR VOMITING; Start 01/03 at 12:00 Enoxaparin Sodium (Lovenox) 40 mg DAILY SC Last administered on 01/05/17 09:30 ; Admin Dose 40 MG; Start 01/04/17 at 09:00 Zolpidem Tartrate 5 mg 5 mg HS PRN PO INSOMNIA; Start 01/03/17 at 12:00 Sodium Chloride (NS) 1,000 ml @ 50 mls/hr Q20H IV Last administered on 12:30; Admin Dose 50 MLS/HR; Start 01/03/17 at 13:40 Hydromorphone HCl (Dilaudid) 1 mg Q2H PRN IV PAIN Last administered on 03:20; Admin Dose 1 MG; Start 01/04/17 at 01:30 Ondansetron HCl (Zofran Tab) 8 mg Q8H PRN PO NAUSEA AND/OR VOMITING; Start 01/04 at 09:30 Prochlorperazine (Compazine) 10 mg Q8H PRN PO NAUSEA AND/OR VOMITING; Start 01/04/17 at 09:30 Metoclopramide HCl (Reglan) 10 mg Q8H PRN PO NAUSEA AND/OR VOMITING; Start 01/04 at 09:30 Hydrocortisone (Solu-Cortef) 100 mg PRN PRN IV X 1 FOR RXN TO CHEMO; Start 01/04 at 09:30 Diphenhydramine HCl (Benadryl) 50 mg PRN PRN IV RXN TO CHEMO, X 1 DOSE; Start 01/04/17 at 09:30 Methylnaltrexone [place] (Relistor) 12 mg Q48H SC Last administered on 16:13; Admin Dose 12 MG; Start 01/04/17 at 13:30 Methadone HCl (Methadone Liq) 3 mg Q8 PO Last administered on 01/05/17 13:44; Admin Dose 3 MG; Start 01/04/17 at 13:30 Famotidine (Pepcid) 20 mg BID PO Last administered on 01/05/17 09:28; Admin Dose 20 MG; Start 01/05/17 at 09:00 RUSS HINES M.D. Jan 05, 2017 13:49
[2017-01-06] MEDS: HYDROmorphONE 1 MG/ML SYG IV PRN ×5 (00:20→23:51)
[2017-01-06] MEDS: METHADONE (1 MG/ML 5 ML PO UD SYG) PO SCH ×3 (06:00→21:22)
[2017-01-06] MEDS: SOD CHLORIDE 0.9% 1,000 ML IV SCH (06:40)
[2017-01-06] MEDS: FAMOTIDINE 20 MG TAB PO SCH ×2 (08:24→21:21)
[2017-01-06] MEDS: ENOXAPARIN 40 MG/0.4 ML SYG SC SCH (08:28)
[2017-01-06 08:43] VITALS: BP 123/77; RESP 18
--- NOTE | 2017-01-06 11:52 | PN ---
Date/Time of Note Date/Time of Note DATE: 01/06/17 TIME: 11:51 Assessment/Plan VTE Prophylaxis VTE Prophylaxis Intervention: other Lines/Catheters IV [facility] PORTACATH Urinary Cath still in place: No Assessment/Plan Chief Complaint/Hosp Course - Metastatic uterine carcinosarcoma, admitted for cycle 4 of ifex/ taxol, however now presenting with worsening abdominal pain and CT scan consistent with progression of disease. Pending starting chemotherapy with carbo/taxol. Dr. Hoang is following in oncology consultation. Dr. Doyle is following in pain management consultation. - Status post total abdominal hysterectomy and bilateral salpingo-oophorectomy and rectosigmoid anastomosis in September [address] Bueno. - Gastritis by history, continue Pepcid. Problems: Subjective 24 Hr Interval Summary Free Text/Dictation Patient has no complaints Exam/Review of Systems Vital Signs Vitals Vital Signs Date Time Temp Pulse Resp B/P Pulse Ox O2 Delivery O2 Flow Rate FiO2 01/06/17 08:43 98.3 78 18 123/77 98 01/05/17 07:02 Room Air Intake and Output 01/05/17 01/05/17 01/06/17 15:00 23:00 07:00 Intake Total 150 ml 1450 ml 1290 ml Output Total 750 ml Balance 150 ml 1450 ml 540 ml Exam Constitutional: well developed Head: atraumatic, normocephalic Neck: supple Respiratory: clear to auscultation Cardiovascular: regular rate and rhythm Gastrointestinal: non-tender, soft Extremities: normal pulses Results Result Diagram: 01/05/1791501/05/17915 Medications Medications Current Medications Ondansetron HCl (Zofran Inj) 4 mg Q6H PRN IV NAUSEA AND/OR VOMITING; Start 01/03 at 12:00 Enoxaparin Sodium (Lovenox) 40 mg DAILY SC Last administered on 01/06/17 08:28 ; Admin Dose 40 MG; Start 01/04/17 at 09:00 Zolpidem Tartrate 5 mg 5 mg HS PRN PO INSOMNIA; Start 01/03/17 at 12:00 Sodium Chloride (NS) 1,000 ml @ 50 mls/hr Q20H IV Last administered on 06:40; Admin Dose 50 MLS/HR; Start 01/03/17 at 13:40 Hydromorphone HCl (Dilaudid) 1 mg Q2H PRN IV PAIN Last administered on 10:06; Admin Dose 1 MG; Start 01/04/17 at 01:30 Ondansetron HCl (Zofran Tab) 8 mg Q8H PRN PO NAUSEA AND/OR VOMITING; Start 01/04 at 09:30 Prochlorperazine (Compazine) 10 mg Q8H PRN PO NAUSEA AND/OR VOMITING; Start 01/04/17 at 09:30 Metoclopramide HCl (Reglan) 10 mg Q8H PRN PO NAUSEA AND/OR VOMITING; Start 01/04 at 09:30 Hydrocortisone (Solu-Cortef) 100 mg PRN PRN IV X 1 FOR RXN TO CHEMO; Start 01/04 at 09:30 Diphenhydramine HCl (Benadryl) 50 mg PRN PRN IV RXN TO CHEMO, X 1 DOSE; Start 01/04/17 at 09:30 Methylnaltrexone [place] (Relistor) 12 mg Q48H SC Last administered on 16:13; Admin Dose 12 MG; Start 01/04/17 at 13:30 Methadone HCl (Methadone Liq) 3 mg Q8 PO Last administered on 01/06/17 06:00; Admin Dose 3 MG; Start 01/04/17 at 13:30 Famotidine (Pepcid) 20 mg BID PO Last administered on 01/06/17 08:24; Admin Dose 20 MG; Start 01/05/17 at 09:00 MARCO XAVIER Jan 06, 2017 11:52
[2017-01-06] MEDS: METHYLNALTREXONE 12 MG/0.6 ML VIAL SC SCH (13:26)
[2017-01-06] MEDS: ONDANSETRON 4 MG INJ IV PRN ×3 (14:05→23:50)
[2017-01-06 19:30] VITALS: BP 120/79; RESP 20
[2017-01-07] MEDS: HYDROmorphONE 1 MG/ML SYG IV PRN ×4 (04:55→21:13)
[2017-01-07] MEDS: SOD CHLORIDE 0.9% 1,000 ML IV SCH (04:56)
[2017-01-07] MEDS: METHADONE (1 MG/ML 5 ML PO UD SYG) PO SCH ×3 (06:27→21:55)
[2017-01-07] MEDS: FAMOTIDINE 20 MG TAB PO SCH ×2 (08:54→21:13)
[2017-01-07 08:56] VITALS: BP 129/79; RESP 20
[2017-01-07] MEDS: ENOXAPARIN 40 MG/0.4 ML SYG SC SCH (08:57)
--- NOTE | 2017-01-07 09:50 | CONS ---
Date/Time of Note Date/Time of Note DATE: 01/07/17 TIME: 09:48 Assessment/Plan Assessment/Plan Chief Complaint/Hosp Course 56yo female with metastatic uterine carcinosarcoma sarcoma now admitted for cycle 4 of ifex/ taxol, however now presenting with worsening abdominal pain and CT scan consistent with progression of disease. - CT scan shows increased abdominopelvic lymphadenopathy and peritoneal carcinomatosis, for instance right cardiophrenic LN increased from 1.4 to 1.8, anterior aortocaval lymph node unchanged, posterior aortocaval lymph node increased from 1.2 to 1.6cm, right iliac chain sonny mass now 6.9 x 3.6 cm, previously 6.1 x 3.3 cm, and RP LAD more confluent, with extensive presacral thickening and numerous enhancing confluent nodules throughout the peritoneum and increased since prior. Trace ascites. - Plan was for a total of 4 cycles of ifosfamide/taxol followd by 4 cycles of carbo/taxol per discussion with Dr. Bueno. Given worsening abdominal pain and scan consistent with progression of disease, carbo/taxol was started on . - continue pain control recommendations per Dr. Patino. Once pain well controlled, ok to discharge home from oncology perspective. - Patient received decadron 20 mg PO 12 hours and 6 hours prior to paclitaxel - Hgb stable - zofran prn, added compazine and reglan prn nausea/vomiting. - magnesium citrate now, miralax prn, colace for constipation - s/p port placement during the last admission Patient should follow-up with me in clinic Chemo regimen Carboplatin AUC 6 IV D1 Taxol 175 mg/m2 IV D1 Problems: Consultation Date/Type/Reason Admit Date/Time Jan 03, 2017 at 10:17 Initial Consult Date 01/03/17 Type of Consultation: Oncology Referring Provider: ARLENE CHOWDARY MD 24 HR Interval Summary Free Text/Dictation Patient complains of continued abdominal pain as well as constipation. Exam/Review of Systems Vital Signs Vitals Vital Signs Date Time Temp Pulse Resp B/P Pulse Ox O2 Delivery O2 Flow Rate FiO2 01/07/17 08:56 99.0 130 20 129/79 96 01/05/17 07:02 Room Air Intake and Output 01/06/17 01/06/17 01/07/17 15:00 23:00 07:00 Intake Total 1580 ml 1300 ml Balance 1580 ml 1300 ml Exam Constitutional: alert, frail, oriented Psych: anxiety, depression Head: atraumatic, normocephalic Eyes: nl conjunctiva ENMT: nl external ears & nose Neck: non-tender, supple Respiratory: clear to auscultation Cardiovascular: nl pulses, regular rate and rhythm Gastrointestinal: tender Musculoskeletal: nl extremities to inspection Results Result Diagram: 01/05/1791501/05/17915 Medications Medications Current Medications Ondansetron HCl (Zofran Inj) 4 mg Q6H PRN IV NAUSEA AND/OR VOMITING Last administered on 01/06/17 23:50; Admin Dose 4 MG; Start 01/03/17 at 12:00 Enoxaparin Sodium (Lovenox) 40 mg DAILY SC Last administered on 01/07/17 08:57 ; Admin Dose 40 MG; Start 01/04/17 at 09:00 Zolpidem Tartrate 5 mg 5 mg HS PRN PO INSOMNIA; Start 01/03/17 at 12:00 Sodium Chloride (NS) 1,000 ml @ 50 mls/hr Q20H IV Last administered on 04:56; Admin Dose 50 MLS/HR; Start 01/03/17 at 13:40 Hydromorphone HCl (Dilaudid) 1 mg Q2H PRN IV PAIN Last administered on 09:02; Admin Dose 1 MG; Start 01/04/17 at 01:30 Ondansetron HCl (Zofran Tab) 8 mg Q8H PRN PO NAUSEA AND/OR VOMITING; Start 01/04 at 09:30 Prochlorperazine (Compazine) 10 mg Q8H PRN PO NAUSEA AND/OR VOMITING; Start 01/04/17 at 09:30 Metoclopramide HCl (Reglan) 10 mg Q8H PRN PO NAUSEA AND/OR VOMITING; Start 01/04 at 09:30 Hydrocortisone (Solu-Cortef) 100 mg PRN PRN IV X 1 FOR RXN TO CHEMO; Start 01/04 at 09:30 Diphenhydramine HCl (Benadryl) 50 mg PRN PRN IV RXN TO CHEMO, X 1 DOSE; Start 01/04/17 at 09:30 Methylnaltrexone [place] (Relistor) 12 mg Q48H SC Last administered on 13:26; Admin Dose 12 MG; Start 01/04/17 at 13:30 Methadone HCl (Methadone Liq) 3 mg Q8 PO Last administered on 01/07/17 06:27; Admin Dose 3 MG; Start 01/04/17 at 13:30 Famotidine (Pepcid) 20 mg BID PO Last administered on 01/07/17 08:54; Admin Dose 20 MG; Start 01/05/17 at 09:00 LINDA SWANSON MD Jan 07, 2017 09:50
[2017-01-07] MEDS ORDERED: MAGNESIUM CITRATE 300 ML BTL PO ONE (10:00)
[2017-01-07 10:22] LABS: ADD SCAN DIFF NO
[2017-01-07 10:26] LABS: ABNORMAL IP MESSAGE 1; HEMATOCRIT 31.4 % (37.0-47.0); HEMOGLOBIN 10.3 g/dl (12.0-16.0); LYMPHOCYTES # 0.2 10^3/ul (0.8-2.9); LYMPHOCYTES % 2.1 % (15.0-51.0); MEAN CORPUSCULAR HEMOGLOBIN 28.8 pg (29.0-33.0); MEAN CORPUSCULAR HGB CONC 32.8 g/dl (32.0-37.0); MEAN CORPUSCULAR VOLUME 87.7 fl (82.0-101.0); MEAN PLATELET VOLUME 9.4 fl (7.4-10.4); MONOCYTE # 0.1 10^3/ul (0.3-0.9); MONOCYTES % 1.2 % (0.0-11.0); NEUTROPHIL # 8.3 10^3/ul (1.6-7.5); NEUTROPHILS % 96.4 % (39.0-77.0); PLATELET COUNT 245 10^3/UL (140-415); RED BLOOD COUNT 3.58 10^6/ul (4.20-5.40); RED CELL DISTRIBUTION WIDTH 17.2 % (11.5-14.5); WHITE BLOOD COUNT 8.6 10^3/ul (4.8-10.8)
[2017-01-07 11:03] LABS: ALBUMIN 3.4 g/dl (3.3-4.9); ALBUMIN/GLOBULIN RATIO 1.61; BILIRUBIN,INDIRECT 0.2 mg/dl (0-1.1); BILIRUBIN,TOTAL 0.2 mg/dl (0.2-1.3); CALCIUM 7.8 mg/dl (8.4-10.2); CREATININE 0.98 mg/dl (0.44-1.00); POTASSIUM 4.2 mmol/L (3.5-5.1); TOTAL PROTEIN 5.5 g/dl (6.1-8.1)
--- NOTE | 2017-01-07 11:37 | RADRPT ---
PROCEDURE: XR Bilateral Knees 3 Views. CLINICAL INDICATION: Bilateral knee pain. TECHNIQUE: AP, lateral and tunnel view of the bilateral knees were obtained. The images reviewed on a PACS workstation. COMPARISON: None. FINDINGS: Right: The osseous structures are intact. No destructive bony lesions are observed. The interosseous spac es are normal. Small enthesophyte projects from the superior aspect of the patella. The soft tiss ues are unremarkable. Left: The osseous structures are intact. No destructive bony lesions are observed. The interosseous spac es are normal. Small enthesophyte projects from the superior aspect of the patella. The soft tissu es are unremarkable. IMPRESSION: Small enthesophytes that project from the superior aspects of the bilateral patella. These could be the sequelae of quadriceps tendonitis. If further characterization is needed CT or MRI could be helpful. If there is high clinical suspicion for traumatic injury, further evaluation with CT should be consi dered. RPTAT: AA .Bernardo Rivera MD, Date Time Electronically viewed and signed by .Bernardo Rivera MD, MD on 01/07/2017 11:37 .P/
[2017-01-07] MEDS: DOCUSATE SODIUM 100 MG CAP PO SCH ×2 (12:51→21:13)
--- NOTE | 2017-01-07 18:26 | PN ---
Date/Time of Note Date/Time of Note DATE: 01/07/17 TIME: 18:23 Assessment/Plan VTE Prophylaxis VTE Prophylaxis Intervention: SCD's Lines/Catheters [facility] ([facility] [place] line still needed: Yes Urinary Cath still in place: No Assessment/Plan Chief Complaint/Hosp Course Patient agrees increased BUN and creatinine and tachycardic, started on IV fluids will give normal saline bolus as well. Patient's complains of nausea and epigastric tenderness denies any vomiting. Assessment/Plan - Metastatic uterine carcinosarcoma, admitted for cycle 4 of ifex/ taxol, however now presenting with worsening abdominal pain and CT scan consistent with progression of disease. S/p carbo/taxol on 01/04. Dr. Hoang is following in oncology consultation. Dr. Doyle is following in pain management consultation. - Status post total abdominal hysterectomy and bilateral salpingo-oophorectomy and rectosigmoid anastomosis in September [address] Bueno. - Gastritis by history, continue Pepcid. - Constipation, continue Relistor, Colace, mag citrate as needed. Further recommendations based on clinical course. Plan of care discussed with Dr. Richardson. Problems: Exam/Review of Systems Vital Signs Vitals Vital Signs Date Time Temp Pulse Resp B/P Pulse Ox O2 Delivery O2 Flow Rate FiO2 01/07/17 08:56 99.0 130 20 129/79 96 01/05/17 07:02 Room Air Intake and Output 01/06/17 01/06/17 01/07/17 15:00 23:00 07:00 Intake Total 1580 ml 1300 ml Balance 1580 ml 1300 ml Exam Constitutional: alert, oriented Head: atraumatic, normocephalic Neck: supple Respiratory: normal air movement Cardiovascular: nl pulses Gastrointestinal: non-tender, other (Epigastric tenderness), soft Musculoskeletal: nl gait and stance Extremities: normal pulses Neurological: nl mental status Results Result Diagram: 01/07/17 1000 01/07/17 1000 Results 24 hrs Laboratory Tests Test 01/07/17 10:00 White Blood Count 8.6 # Red Blood Count 3.58 L Hemoglobin 10.3 L Hematocrit 31.4 L Mean Corpuscular Volume 87.7 Mean Corpuscular Hemoglobin 28.8 L Mean Corpuscular Hemoglobin Concent 32.8 Red Cell Distribution Width 17.2 H Platelet Count 245 # Mean Platelet Volume 9.4 Neutrophils % 96.4 H Lymphocytes % 2.1 L Monocytes % 1.2 Eosinophils % 0.0 Basophils % 0.0 Nucleated Red Blood Cells % 0.0 Neutrophils # 8.3 H Lymphocytes # 0.2 L Monocytes # 0.1 L Eosinophils # 0.0 Basophils # 0.0 Nucleated Red Blood Cells # 0.0 Sodium Level 130 L Potassium Level 4.2 Chloride Level 103 Carbon Dioxide Level 22 Anion Gap 9 Blood Urea Nitrogen 21 H Creatinine 0.98 Glucose Level 109 Calcium Level 7.8 L Total Bilirubin 0.2 Direct Bilirubin 0.00 Indirect Bilirubin 0.2 Aspartate Amino Transf (AST/SGOT) 128 H Alanine Aminotransferase (ALT/SGPT) 103 H Alkaline Phosphatase 56 Total Protein 5.5 L Albumin 3.4 Globulin 2.10 Albumin/Globulin Ratio 1.61 Medications Medications Current Medications Ondansetron HCl (Zofran Inj) 4 mg Q6H PRN IV NAUSEA AND/OR VOMITING Last administered on 01/06/17 23:50; Admin Dose 4 MG; Start 01/03/17 at 12:00 Enoxaparin Sodium (Lovenox) 40 mg DAILY SC Last administered on 01/07/17 08:57 ; Admin Dose 40 MG; Start 01/04/17 at 09:00 Zolpidem Tartrate 5 mg 5 mg HS PRN PO INSOMNIA; Start 01/03/17 at 12:00 Sodium Chloride (NS) 1,000 ml @ 50 mls/hr Q20H IV Last administered on 04:56; Admin Dose 50 MLS/HR; Start 01/03/17 at 13:40 Hydromorphone HCl (Dilaudid) 1 mg Q2H PRN IV PAIN Last administered on 12:52; Admin Dose 1 MG; Start 01/04/17 at 01:30 Ondansetron HCl (Zofran Tab) 8 mg Q8H PRN PO NAUSEA AND/OR VOMITING; Start 01/04 at 09:30 Prochlorperazine (Compazine) 10 mg Q8H PRN PO NAUSEA AND/OR VOMITING; Start 01/04/17 at 09:30 Metoclopramide HCl (Reglan) 10 mg Q8H PRN PO NAUSEA AND/OR VOMITING; Start 7/7 /17 at 09:30 Hydrocortisone (Solu-Cortef) 100 mg PRN PRN IV X 1 FOR RXN TO CHEMO; Start 01/04 at 09:30 Diphenhydramine HCl (Benadryl) 50 mg PRN PRN IV RXN TO CHEMO, X 1 DOSE; Start 01/04/17 at 09:30 Methylnaltrexone [place] (Relistor) 12 mg Q48H SC Last administered on 13:26; Admin Dose 12 MG; Start 01/04/17 at 13:30 Methadone HCl (Methadone Liq) 3 mg Q8 PO Last administered on 01/07/17 13:53; Admin Dose 3 MG; Start 01/04/17 at 13:30 Famotidine (Pepcid) 20 mg BID PO Last administered on 01/07/17 08:54; Admin Dose 20 MG; Start 01/05/17 at 09:00 Polyethylene Glycol (Miralax) 17 gm DAILY PRN PO CONSTIPATION; Start 01/07/17 at 10:00 Docusate Sodium (Colace) 100 mg BID PO Last administered on 01/07/17 12:51; Admin Dose 100 MG; Start 01/07/17 at 10:00 ELVIN TEIXEIRA Jan 07, 2017 18:26
[2017-01-07 20:00] VITALS: BP 136/79; RESP 18
[2017-01-08] MEDS: HYDROmorphONE 1 MG/ML SYG IV PRN (01:45)
[2017-01-08] MEDS: SOD CHLORIDE 0.9% 1,000 ML IV SCH ×3 (02:15→17:05)
[2017-01-08 05:17] LABS: ADD SCAN DIFF NO
[2017-01-08 05:21] LABS: ABNORMAL IP MESSAGE 1; HEMATOCRIT 31.3 % (37.0-47.0); MEAN CORPUSCULAR HEMOGLOBIN 27.9 pg (29.0-33.0); MEAN CORPUSCULAR HGB CONC 31.9 g/dl (32.0-37.0); MEAN CORPUSCULAR VOLUME 87.4 fl (82.0-101.0); PLATELET COUNT 221 10^3/UL (140-415); RED BLOOD COUNT 3.58 10^6/ul (4.20-5.40); RED CELL DISTRIBUTION WIDTH 17.4 % (11.5-14.5); WHITE BLOOD COUNT 7.8 10^3/ul (4.8-10.8)
[2017-01-08 05:42] LABS: ALBUMIN 3.2 g/dl (3.3-4.9); ALBUMIN/GLOBULIN RATIO 1.45; BILIRUBIN,INDIRECT 0.2 mg/dl (0-1.1); BILIRUBIN,TOTAL 0.2 mg/dl (0.2-1.3); CALCIUM 7.9 mg/dl (8.4-10.2); CREATININE 1.04 mg/dl (0.44-1.00); POTASSIUM 4.4 mmol/L (3.5-5.1); TOTAL PROTEIN 5.4 g/dl (6.1-8.1)
[2017-01-08] MEDS: METHADONE (1 MG/ML 5 ML PO UD SYG) PO SCH ×3 (06:58→21:59)
[2017-01-08 08:10] VITALS: BP 125/81; RESP 19
[2017-01-08] MEDS: POLYETHYLENE GLYCOL 17 GM PACKET PO PRN (08:31)
[2017-01-08] MEDS: DOCUSATE SODIUM 100 MG CAP PO SCH ×2 (08:31→21:00)
[2017-01-08] MEDS: ENOXAPARIN 40 MG/0.4 ML SYG SC SCH (08:31)
[2017-01-08] MEDS: FAMOTIDINE 20 MG TAB PO SCH ×2 (08:31→21:53)
--- NOTE | 2017-01-08 09:50 | CONS ---
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 - CT scan shows increased abdominopelvic lymphadenopathy and peritoneal carcinomatosis, for instance right cardiophrenic LN increased from 1.4 to 1.8, anterior aortocaval lymph node unchanged, posterior aortocaval lymph node increased from 1.2 to 1.6cm, right iliac chain sonny mass now 6.9 x 3.6 cm, previously 6.1 x 3.3 cm, and RP LAD more confluent, with extensive presacral thickening and numerous enhancing confluent nodules throughout the peritoneum and increased since prior. Trace ascites. - Plan was for a total of 4 cycles of ifosfamide/taxol followd by 4 cycles of carbo/taxol per discussion with Dr. Bueno. Given worsening abdominal pain and scan consistent with progression of disease, carbo/taxol was started on . - continue pain control recommendations per Dr. Patino. Per Dr. Patino, methadone and prn meds will be increased. Once pain well controlled, ok to discharge home from oncology perspective. - Would suggest IV fluids for mild acute renal failure likely prerenal. - LFTs likely related to chemotherapy, continue to monitor. - Patient received decadron 20 mg PO 12 hours and 6 hours prior to paclitaxel - Hgb stable - zofran prn, added compazine and reglan prn nausea/vomiting. - magnesium citrate now, miralax prn, colace for constipation - s/p port placement during the last admission Patient should follow-up with me in clinic Chemo regimen Carboplatin AUC 6 IV D1 Taxol 175 mg/m2 IV D1 Problems: Consultation Date/Type/Reason Admit Date/Time Jan 03, 2017 at 10:17 Initial Consult Date 01/03/17 Type of Consultation: Oncology Referring Provider: ARLENE CHOWDARY MD 24 HR Interval Summary Free Text/Dictation Patient states that the pain medications help her pain, but continues to have abdominal pain, nausea and poor appetite. Exam/Review of Systems Vital Signs Vitals Vital Signs Date Time Temp Pulse Resp B/P Pulse Ox O2 Delivery O2 Flow Rate FiO2 01/08/17 08:10 97.5 120 19 125/81 99 01/05/17 07:02 Room Air Intake and Output 01/07/17 01/07/17 01/08/17 15:00 23:00 07:00 Intake Total 1540 ml 1700 ml Balance 1540 ml 1700 ml Exam Constitutional: alert, frail, oriented Psych: anxiety, depression Head: atraumatic, normocephalic Eyes: nl conjunctiva ENMT: nl external ears & nose Neck: non-tender, supple Respiratory: clear to auscultation Cardiovascular: nl pulses, regular rate and rhythm Gastrointestinal: tender Musculoskeletal: nl extremities to inspection Results Result Diagram: 01/08/174 01/08/17 0444 Results 24 hrs Laboratory Tests Test 01/07/17 10:00 01/08/17 04:44 White Blood Count 8.6 # 7.8 Red Blood Count 3.58 L 3.58 L Hemoglobin 10.3 L 10.0 L Hematocrit 31.4 L 31.3 L Mean Corpuscular Volume 87.7 87.4 Mean Corpuscular Hemoglobin 28.8 L 27.9 L Mean Corpuscular Hemoglobin Concent 32.8 31.9 L Red Cell Distribution Width 17.2 H 17.4 H Platelet Count 245 # 221 Mean Platelet Volume 9.4 10.0 Neutrophils % 96.4 H Lymphocytes % 2.1 L Monocytes % 1.2 Eosinophils % 0.0 Basophils % 0.0 Nucleated Red Blood Cells % 0.0 Neutrophils # 8.3 H Lymphocytes # 0.2 L Monocytes # 0.1 L Eosinophils # 0.0 Basophils # 0.0 Nucleated Red Blood Cells # 0.0 Sodium Level 130 L 131 L Potassium Level 4.2 4.4 Chloride Level 103 98 Carbon Dioxide Level 22 26 Anion Gap 9 11 Blood Urea Nitrogen 21 H 23 H Creatinine 0.98 1.04 H Glucose Level 109 113 Calcium Level 7.8 L 7.9 L Total Bilirubin 0.2 0.2 Direct Bilirubin 0.00 0.00 Indirect Bilirubin 0.2 0.2 Aspartate Amino Transf (AST/SGOT) 128 H 134 H Alanine Aminotransferase (ALT/SGPT) 103 H 85 H Alkaline Phosphatase 56 58 Total Protein 5.5 L 5.4 L Albumin 3.4 3.2 L Globulin 2.10 2.20 Albumin/Globulin Ratio 1.61 1.45 Differential Comment AUTO w/SCAN Medications Medications Current Medications Ondansetron HCl (Zofran Inj) 4 mg Q6H PRN IV NAUSEA AND/OR VOMITING Last administered on 01/06/17 23:50; Admin Dose 4 MG; Start 01/03/17 at 12:00 Enoxaparin Sodium (Lovenox) 40 mg DAILY SC Last administered on 01/08/17 08:31 ; Admin Dose 40 MG; Start 01/04/17 at 09:00 Zolpidem Tartrate 5 mg 5 mg HS PRN PO INSOMNIA; Start 01/03/17 at 12:00 Sodium Chloride (NS) 1,000 ml @ 50 mls/hr Q20H IV Last administered on 02:15; Admin Dose 50 MLS/HR; Start 01/03/17 at 13:40 Hydromorphone HCl (Dilaudid) 1 mg Q2H PRN IV PAIN Last administered on 01:45; Admin Dose 1 MG; Start 01/04/17 at 01:30 Ondansetron HCl (Zofran Tab) 8 mg Q8H PRN PO NAUSEA AND/OR VOMITING; Start 01/04 at 09:30 Prochlorperazine (Compazine) 10 mg Q8H PRN PO NAUSEA AND/OR VOMITING; Start 01/04/17 at 09:30 Metoclopramide HCl (Reglan) 10 mg Q8H PRN PO NAUSEA AND/OR VOMITING; Start 01/04 at 09:30 Hydrocortisone (Solu-Cortef) 100 mg PRN PRN IV X 1 FOR RXN TO CHEMO; Start 01/04 at 09:30 Diphenhydramine HCl (Benadryl) 50 mg PRN PRN IV RXN TO CHEMO, X 1 DOSE; Start 01/04/17 at 09:30 Methylnaltrexone [place] (Relistor) 12 mg Q48H SC Last administered on 13:26; Admin Dose 12 MG; Start 01/04/17 at 13:30 Methadone HCl (Methadone Liq) 3 mg Q8 PO Last administered on 01/08/17 06:58; Admin Dose 3 MG; Start 01/04/17 at 13:30 Famotidine (Pepcid) 20 mg BID PO Last administered on 01/08/17 08:31; Admin Dose 20 MG; Start 01/05/17 at 09:00 Polyethylene Glycol (Miralax) 17 gm DAILY PRN PO CONSTIPATION Last administered on 01/08/17 08:31; Admin Dose 17 GM; Start 01/07/17 at 10:00 Docusate Sodium (Colace) 100 mg BID PO Last administered on 01/08/17 08:31; Admin Dose 100 MG; Start 01/07/17 at 10:00 LINDA SWANSON MD Jan 08, 2017 09:50
[2017-01-08] MEDS ORDERED: HYDROmorphONE 2 MG/ML SYG IV PRN (11:30)
[2017-01-08] MEDS: METHYLNALTREXONE 12 MG/0.6 ML VIAL SC SCH (13:38)
[2017-01-08] MEDS ORDERED: SOD CHLORIDE 0.9% 250 ML IV ONE (16:00)
[2017-01-08] MEDS ORDERED: MAGNESIUM CITRATE 300 ML BTL PO SCH (17:00)
[2017-01-08 20:09] VITALS: BP 123/78; RESP 20
[2017-01-09] MEDS: SOD CHLORIDE 0.9% 1,000 ML IV SCH ×4 (00:49→21:00)
[2017-01-09 05:56] LABS: CALCIUM 7.1 mg/dl (8.4-10.2); CREATININE 0.98 mg/dl (0.44-1.00); POTASSIUM 3.8 mmol/L (3.5-5.1)
[2017-01-09] MEDS: METHADONE (1 MG/ML 5 ML PO UD SYG) PO SCH ×3 (06:17→20:59)
[2017-01-09 07:47] VITALS: BP 116/75; RESP 18
[2017-01-09] MEDS: DOCUSATE SODIUM 100 MG CAP PO SCH ×2 (08:33→21:00)
[2017-01-09] MEDS: FAMOTIDINE 20 MG TAB PO SCH ×2 (08:33→20:59)
[2017-01-09] MEDS: ENOXAPARIN 40 MG/0.4 ML SYG SC SCH (08:34)
[2017-01-09] MEDS: ONDANSETRON 4 MG INJ IV PRN ×2 (08:34→13:57)
--- NOTE | 2017-01-09 09:05 | CONS ---
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 - CT scan shows increased abdominopelvic lymphadenopathy and peritoneal carcinomatosis, for instance right cardiophrenic LN increased from 1.4 to 1.8, anterior aortocaval lymph node unchanged, posterior aortocaval lymph node increased from 1.2 to 1.6cm, right iliac chain sonny mass now 6.9 x 3.6 cm, previously 6.1 x 3.3 cm, and RP LAD more confluent, with extensive presacral thickening and numerous enhancing confluent nodules throughout the peritoneum and increased since prior. Trace ascites. - Plan was for a total of 4 cycles of ifosfamide/taxol followd by 4 cycles of carbo/taxol per discussion with Dr. Bueno. Given worsening abdominal pain and scan consistent with progression of disease, carbo/taxol was started on . - continue pain control recommendations per Dr. Patino. Per Dr. Patino, methadone and prn meds increased. Once pain well controlled, ok to discharge home from oncology perspective. - s/p IV fluids for mild acute renal failure likely prerenal, improved. If PO intake does not improve adequately, may need to set patient up for outpatient hydration. - LFTs likely related to chemotherapy, continue to monitor. - Patient received decadron 20 mg PO 12 hours and 6 hours prior to paclitaxel - Hgb stable - zofran prn, added compazine and reglan prn nausea/vomiting. - magnesium citrate now, miralax prn, colace for constipation - s/p port placement during the last admission Patient should follow-up with me in clinic Chemo regimen Carboplatin AUC 6 IV D1 Taxol 175 mg/m2 IV D1 Problems: Consultation Date/Type/Reason Admit Date/Time Jan 03, 2017 at 10:17 Initial Consult Date 01/03/17 Type of Consultation: Oncology Referring Provider: ARLENE CHOWDARY MD 24 HR Interval Summary Free Text/Dictation Patient has decreased abdominal pain but still minimal PO intake and nausea. Exam/Review of Systems Vital Signs Vitals Vital Signs Date Time Temp Pulse Resp B/P Pulse Ox O2 Delivery O2 Flow Rate FiO2 01/09/17 07:47 98.9 100 18 116/75 98 01/05/17 07:02 Room Air Intake and Output 01/08/17 01/08/17 01/09/17 15:00 23:00 07:00 Intake Total 400 ml 1200 ml 2600 ml Output Total 300 ml 5 ml Balance 400 ml 900 ml 2595 ml Exam Constitutional: alert, frail, oriented Psych: anxiety, depression Head: atraumatic, normocephalic Eyes: nl conjunctiva ENMT: nl external ears & nose Neck: non-tender, supple Respiratory: clear to auscultation Cardiovascular: nl pulses, regular rate and rhythm Gastrointestinal: tender Musculoskeletal: nl extremities to inspection Results Result Diagram: 01/08/1744301/09/17440 Results 24 hrs Laboratory Tests Test 01/09/17 04:41 Sodium Level 129 L Potassium Level 3.8 Chloride Level 99 Carbon Dioxide Level 25 Anion Gap 9 Blood Urea Nitrogen 21 H Creatinine 0.98 Glucose Level 86 Calcium Level 7.1 L Medications Medications Current Medications Ondansetron HCl (Zofran Inj) 4 mg Q6H PRN IV NAUSEA AND/OR VOMITING Last administered on 01/09/17 08:34; Admin Dose 4 MG; Start 01/03/17 at 12:00 Enoxaparin Sodium (Lovenox) 40 mg DAILY SC Last administered on 01/09/17 08:34 ; Admin Dose 40 MG; Start 01/04/17 at 09:00 Zolpidem Tartrate 5 mg 5 mg HS PRN PO INSOMNIA; Start 01/03/17 at 12:00 Sodium Chloride (NS) 1,000 ml @ 50 mls/hr Q20H IV Last administered on 02:15; Admin Dose 50 MLS/HR; Start 01/03/17 at 13:40 Ondansetron HCl (Zofran Tab) 8 mg Q8H PRN PO NAUSEA AND/OR VOMITING; Start 01/04 at 09:30 Prochlorperazine (Compazine) 10 mg Q8H PRN PO NAUSEA AND/OR VOMITING; Start 01/04/17 at 09:30 Metoclopramide HCl (Reglan) 10 mg Q8H PRN PO NAUSEA AND/OR VOMITING; Start 01/04 at 09:30 Hydrocortisone (Solu-Cortef) 100 mg PRN PRN IV X 1 FOR RXN TO CHEMO; Start 01/04 at 09:30 Diphenhydramine HCl (Benadryl) 50 mg PRN PRN IV RXN TO CHEMO, X 1 DOSE; Start 01/04/17 at 09:30 Methylnaltrexone [place] (Relistor) 12 mg Q48H SC Last administered on 13:38; Admin Dose 12 MG; Start 01/04/17 at 13:30 Famotidine (Pepcid) 20 mg BID PO Last administered on 01/09/17 08:33; Admin Dose 20 MG; Start 01/05/17 at 09:00 Polyethylene Glycol (Miralax) 17 gm DAILY PRN PO CONSTIPATION Last administered on 01/08/17 08:31; Admin Dose 17 GM; Start 01/07/17 at 10:00 Docusate Sodium (Colace) 100 mg BID PO Last administered on 01/09/17 08:33; Admin Dose 100 MG; Start 01/07/17 at 10:00 Methadone HCl (Methadone Liq) 5 mg Q8 PO Last administered on 01/09/17 06:17; Admin Dose 5 MG; Start 01/08/17 at 14:00 Hydromorphone HCl 2 mg 2 mg Q2H PRN IV PAIN Last administered on 01/08/17 17: 43; Admin Dose 2 MG; Start 01/08/17 at 11:30 Sodium Chloride (NS) 1,000 ml @ 100 mls/hr Q10H IV Last administered on 00:49; Admin Dose 100 MLS/HR; Start 01/08/17 at 10:30 LINDA SWANSON MD Jan 09, 2017 09:05
--- NOTE | 2017-01-09 14:16 | PN ---
Date/Time of Note Date/Time of Note DATE: 01/09/17 TIME: 14:11 Assessment/Plan VTE Prophylaxis VTE Prophylaxis Intervention: SCD's Lines/Catheters IV [facility]ter [facility]from [facility] Urinary Cath still in place: No Assessment/Plan Chief Complaint/Hosp Course Pain is well controlled, patient complains of nausea and poor appetite. Patient was hyponatremia, continue IV fluids, will monitor electrolytes. Assessment/Plan - Metastatic uterine carcinosarcoma, admitted for cycle 4 of ifex/ taxol, however now presenting with worsening abdominal pain and CT scan consistent with progression of disease. S/p carbo/taxol on 01/04. Dr. Hoang is following in oncology consultation. Dr. Doyle is following in pain management consultation. - Status post total abdominal hysterectomy and bilateral salpingo-oophorectomy and rectosigmoid anastomosis in September [address] Bueno. - Gastritis by history, continue Pepcid. - Constipation, continue Relistor, Colace, mag citrate as needed. Further recommendations based on clinical course. Plan of care discussed with Dr. Richardson. Problems: Exam/Review of Systems Vital Signs Vitals Vital Signs Date Time Temp Pulse Resp B/P Pulse Ox O2 Delivery O2 Flow Rate FiO2 01/09/17 07:47 98.9 100 18 116/75 98 01/05/17 07:02 Room Air Intake and Output 01/08/17 01/08/17 01/09/17 15:00 23:00 07:00 Intake Total 400 ml 1200 ml 2600 ml Output Total 300 ml 5 ml Balance 400 ml 900 ml 2595 ml Exam Constitutional: alert, oriented Head: atraumatic, normocephalic Neck: supple Respiratory: normal air movement Cardiovascular: nl pulses Gastrointestinal: non-tender, other (Epigastric tenderness), soft Musculoskeletal: nl gait and stance Extremities: normal pulses Neurological: nl mental status Results Result Diagram: 01/08/17 0444 01/09/17 0441 Results 24 hrs Laboratory Tests Test 01/09/17 04:41 Sodium Level 129 L Potassium Level 3.8 Chloride Level 99 Carbon Dioxide Level 25 Anion Gap 9 Blood Urea Nitrogen 21 H Creatinine 0.98 Glucose Level 86 Calcium Level 7.1 L Medications Medications Current Medications Ondansetron HCl (Zofran Inj) 4 mg Q6H PRN IV NAUSEA AND/OR VOMITING Last administered on 01/09/17 13:57; Admin Dose 4 MG; Start 01/03/17 at 12:00 Enoxaparin Sodium (Lovenox) 40 mg DAILY SC Last administered on 01/09/17 08:34 ; Admin Dose 40 MG; Start 01/04/17 at 09:00 Zolpidem Tartrate 5 mg 5 mg HS PRN PO INSOMNIA; Start 01/03/17 at 12:00 Sodium Chloride (NS) 1,000 ml @ 50 mls/hr Q20H IV Last administered on 09:54; Admin Dose 50 MLS/HR; Start 01/03/17 at 13:40 Ondansetron HCl (Zofran Tab) 8 mg Q8H PRN PO NAUSEA AND/OR VOMITING; Start 01/04 at 09:30 Prochlorperazine (Compazine) 10 mg Q8H PRN PO NAUSEA AND/OR VOMITING; Start 01/04/17 at 09:30 Metoclopramide HCl (Reglan) 10 mg Q8H PRN PO NAUSEA AND/OR VOMITING; Start 01/04 at 09:30 Hydrocortisone (Solu-Cortef) 100 mg PRN PRN IV X 1 FOR RXN TO CHEMO; Start 01/04 at 09:30 Diphenhydramine HCl (Benadryl) 50 mg PRN PRN IV RXN TO CHEMO, X 1 DOSE; Start 01/04/17 at 09:30 Methylnaltrexone [place] (Relistor) 12 mg Q48H SC Last administered on 13:38; Admin Dose 12 MG; Start 01/04/17 at 13:30 Famotidine (Pepcid) 20 mg BID PO Last administered on 01/09/17 08:33; Admin Dose 20 MG; Start 01/05/17 at 09:00 Polyethylene Glycol (Miralax) 17 gm DAILY PRN PO CONSTIPATION Last administered on 01/08/17 08:31; Admin Dose 17 GM; Start 01/07/17 at 10:00 Docusate Sodium (Colace) 100 mg BID PO Last administered on 01/09/17 08:33; Admin Dose 100 MG; Start 01/07/17 at 10:00 Methadone HCl (Methadone Liq) 5 mg Q8 PO Last administered on 01/09/17 13:57; Admin Dose 5 MG; Start 01/08/17 at 14:00 Hydromorphone HCl 2 mg 2 mg Q2H PRN IV PAIN Last administered on 01/08/17 17: 43; Admin Dose 2 MG; Start 01/08/17 at 11:30 Sodium Chloride (NS) 1,000 ml @ 100 mls/hr Q10H IV Last administered on 00:49; Admin Dose 100 MLS/HR; Start 01/08/17 at 10:30 ELVIN TEIXEIRA Jan 09, 2017 14:16
[2017-01-09] MEDS: PROCHLORPERAZINE 10 MG TAB PO SCH ×2 (15:18→20:59)
[2017-01-09 20:36] VITALS: BP 122/69; RESP 20
[2017-01-10 05:17] LABS: ADD SCAN DIFF NO
[2017-01-10 05:23] LABS: ABNORMAL IP MESSAGE 1; EOSINOPHILS % 0.2 % (0.0-7.0); HEMATOCRIT 27.7 % (37.0-47.0); HEMOGLOBIN 8.8 g/dl (12.0-16.0); LYMPHOCYTES # 0.2 10^3/ul (0.8-2.9); LYMPHOCYTES % 3.6 % (15.0-51.0); MEAN CORPUSCULAR HEMOGLOBIN 27.9 pg (29.0-33.0); MEAN CORPUSCULAR HGB CONC 31.8 g/dl (32.0-37.0); MEAN CORPUSCULAR VOLUME 87.9 fl (82.0-101.0); MEAN PLATELET VOLUME 9.8 fl (7.4-10.4); MONOCYTE # 0.1 10^3/ul (0.3-0.9); MONOCYTES % 1.1 % (0.0-11.0); NEUTROPHIL # 4.5 10^3/ul (1.6-7.5); PLATELET COUNT 188 10^3/UL (140-415); RED BLOOD COUNT 3.15 10^6/ul (4.20-5.40); RED CELL DISTRIBUTION WIDTH 17.2 % (11.5-14.5); WHITE BLOOD COUNT 4.8 10^3/ul (4.8-10.8)
[2017-01-10 05:38] LABS: NEUTROPHILS % 94.3 % (39.0-77.0)
[2017-01-10] MEDS: METHADONE (1 MG/ML 5 ML PO UD SYG) PO SCH ×3 (06:04→20:10)
[2017-01-10 06:09] LABS: ALBUMIN 2.6 g/dl (3.3-4.9); ALBUMIN/GLOBULIN RATIO 1.18; BILIRUBIN,INDIRECT 0.1 mg/dl (0-1.1); BILIRUBIN,TOTAL 0.1 mg/dl (0.2-1.3); CALCIUM 7.5 mg/dl (8.4-10.2); CREATININE 0.91 mg/dl (0.44-1.00); POTASSIUM 3.5 mmol/L (3.5-5.1); TOTAL PROTEIN 4.8 g/dl (6.1-8.1)
[2017-01-10] MEDS: SOD CHLORIDE 0.9% 1,000 ML IV SCH (06:51)
[2017-01-10 08:07] VITALS: BP 130/82; RESP 18
[2017-01-10] MEDS: PROCHLORPERAZINE 10 MG TAB PO SCH ×3 (09:02→20:10)
[2017-01-10] MEDS: FAMOTIDINE 20 MG TAB PO SCH ×2 (09:02→20:10)
[2017-01-10] MEDS: DOCUSATE SODIUM 100 MG CAP PO SCH ×2 (09:02→20:10)
[2017-01-10] MEDS: ENOXAPARIN 40 MG/0.4 ML SYG SC SCH (09:07)
--- NOTE | 2017-01-10 09:45 | CONS ---
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 - CT scan shows increased abdominopelvic lymphadenopathy and peritoneal carcinomatosis, for instance right cardiophrenic LN increased from 1.4 to 1.8, anterior aortocaval lymph node unchanged, posterior aortocaval lymph node increased from 1.2 to 1.6cm, right iliac chain sonny mass now 6.9 x 3.6 cm, previously 6.1 x 3.3 cm, and RP LAD more confluent, with extensive presacral thickening and numerous enhancing confluent nodules throughout the peritoneum and increased since prior. Trace ascites. - Plan was for a total of 4 cycles of ifosfamide/taxol followd by 4 cycles of carbo/taxol per discussion with Dr. Bueno. Given worsening abdominal pain and scan consistent with progression of disease, carbo/taxol was started on . - continue pain control recommendations per Dr. Patino. Per Dr. Patino, methadone and prn meds increased. Once pain well controlled, ok to discharge home from oncology perspective. - s/p IV fluids for mild acute renal failure likely prerenal, improved. If PO intake does not improve adequately, may need to set patient up for outpatient hydration. - LFTs likely related to chemotherapy, continue to monitor. - Patient received decadron 20 mg PO 12 hours and 6 hours prior to paclitaxel - monitor Hgb, transfuse if Hgb < 7-8 - zofran prn, added compazine and reglan prn nausea/vomiting. - magnesium citrate now, miralax prn, colace for constipation - s/p port placement during the last admission Patient should follow-up with me in clinic Chemo regimen Carboplatin AUC 6 IV D1 Taxol 175 mg/m2 IV D1 Problems: Consultation Date/Type/Reason Admit Date/Time Jan 03, 2017 at 10:17 Initial Consult Date 01/03/17 Type of Consultation: Oncology Referring Provider: ARLENE CHOWDARY MD 24 HR Interval Summary Free Text/Dictation The patient states that her appetite and PO intake has improved. She still has nausea. Abdominal pain also improved with medications. Exam/Review of Systems Vital Signs Vitals Vital Signs Date Time Temp Pulse Resp B/P Pulse Ox O2 Delivery O2 Flow Rate FiO2 01/10/17 08:07 98.1 109 18 130/82 96 Intake and Output 01/09/17 01/09/17 01/10/17 15:00 23:00 07:00 Intake Total 600 ml 1620 ml 1000 ml Balance 600 ml 1620 ml 1000 ml Exam Constitutional: alert, frail, oriented Psych: anxiety, depression Head: atraumatic, normocephalic Eyes: nl conjunctiva ENMT: nl external ears & nose Neck: non-tender, supple Respiratory: clear to auscultation Cardiovascular: nl pulses, regular rate and rhythm Gastrointestinal: tender Musculoskeletal: nl extremities to inspection Results Result Diagram: 01/10/1744901/10/17 045 Results 24 hrs Laboratory Tests Test 01/10/17 04:50 White Blood Count 4.8 # Red Blood Count 3.15 L Hemoglobin 8.8 L Hematocrit 27.7 L Mean Corpuscular Volume 87.9 Mean Corpuscular Hemoglobin 27.9 L Mean Corpuscular Hemoglobin Concent 31.8 L Red Cell Distribution Width 17.2 H Platelet Count 188 Mean Platelet Volume 9.8 Neutrophils % 94.3 H Lymphocytes % 3.6 L Monocytes % 1.1 Eosinophils % 0.2 Basophils % 0.0 Nucleated Red Blood Cells % 0.0 Neutrophils # 4.5 Lymphocytes # 0.2 L Monocytes # 0.1 L Eosinophils # 0.0 Basophils # 0.0 Nucleated Red Blood Cells # 0.0 Sodium Level 125 L Potassium Level 3.5 Chloride Level 99 Carbon Dioxide Level 26 Anion Gap 4 L Blood Urea Nitrogen 18 Creatinine 0.91 Glucose Level 102 Calcium Level 7.5 L Total Bilirubin 0.1 L Direct Bilirubin 0.00 Indirect Bilirubin 0.1 Aspartate Amino Transf (AST/SGOT) 124 H Alanine Aminotransferase (ALT/SGPT) 59 Alkaline Phosphatase 148 H Total Protein 4.8 L Albumin 2.6 L Globulin 2.20 Albumin/Globulin Ratio 1.18 Medications Medications Current Medications Ondansetron HCl (Zofran Inj) 4 mg Q6H PRN IV NAUSEA AND/OR VOMITING Last administered on 01/09/17t 13:57; Admin Dose 4 MG; Start 01/03/17 at 12:00 Enoxaparin Sodium (Lovenox) 40 mg DAILY SC Last administered on 01/10/17 09:07 ; Admin Dose 40 MG; Start 01/04/17 at 09:00 Zolpidem Tartrate (Ambien) 5 mg HS PRN PO INSOMNIA; Start 01/03/17 at 12:00 Ondansetron HCl (Zofran Tab) 8 mg Q8H PRN PO NAUSEA AND/OR VOMITING; Start 01/04 at 09:30 Metoclopramide HCl (Reglan) 10 mg Q8H PRN PO NAUSEA AND/OR VOMITING Last administered on 01/09/17 18:00; Admin Dose 10 MG; Start 01/04/17 at 09:30 Hydrocortisone (Solu-Cortef) 100 mg PRN PRN IV X 1 FOR RXN TO CHEMO; Start 01/04 at 09:30 Diphenhydramine HCl (Benadryl) 50 mg PRN PRN IV RXN TO CHEMO, X 1 DOSE; Start 01/04/17 at 09:30 Methylnaltrexone [place] (Relistor) 12 mg Q48H SC Last administered on 13:38; Admin Dose 12 MG; Start 01/04/17 at 13:30 Famotidine (Pepcid) 20 mg BID PO Last administered on 01/10/17 09:02; Admin Dose 20 MG; Start 01/05/17 at 09:00 Polyethylene Glycol (Miralax) 17 gm DAILY PRN PO CONSTIPATION Last administered on 01/08/17 08:31; Admin Dose 17 GM; Start 01/07/17 at 10:00 Docusate Sodium (Colace) 100 mg BID PO Last administered on 01/10/17 09:02; Admin Dose 100 MG; Start 01/07/17 at 10:00 Methadone HCl (Methadone Liq) 5 mg Q8 PO Last administered on 01/10/17 06:04; Admin Dose 5 MG; Start 01/08/17 at 14:00 Hydromorphone HCl 2 mg 2 mg Q2H PRN IV PAIN Last administered on 01/08/17 17: 43; Admin Dose 2 MG; Start 01/08/17 at 11:30 Sodium Chloride (NS) 1,000 ml @ 100 mls/hr Q10H IV Last administered on 06:51; Admin Dose 100 MLS/HR; Start 01/08/17 at 10:30 Prochlorperazine (Compazine) 10 mg TID PO Last administered on 01/10/17t 09:02 ; Admin Dose 10 MG; Start 01/09/17 at 15:00 LINDA SWANSON MD Jan 10, 2017 09:45
--- NOTE | 2017-01-10 13:52 | PN ---
Date/Time of Note Date/Time of Note DATE: 01/10/17 TIME: 13:45 Assessment/Plan VTE Prophylaxis VTE Prophylaxis Intervention: other Lines/Catheters IV [facility]ter Type (from [facility] port a cath Urinary Cath still in place: No Assessment/Plan Assessment/Plan -Hyponatremia- cont IVF - Metastatic uterine carcinosarcoma, admitted for cycle 4 of ifex/ taxol, however now presenting with worsening abdominal pain and CT scan consistent with progression of disease. S/p carbo/taxol on 01/04. Dr. Hoang is following in oncology consultation. Dr. Doyle is following in pain management consultation. - Status post total abdominal hysterectomy and bilateral salpingo-oophorectomy and rectosigmoid anastomosis in [place] [address] Bueno. - Gastritis by history, continue Pepcid. - Constipation, continue Relistor, Colace, mag citrate as needed. Further recommendations based on clinical course. Plan of care discussed with Dr. Richardson. Subjective 24 Hr Interval Summary Constitutional: improved, requiring IVF Eyes: no complaints Cardiovascular: no complaints Gastrointestinal: no complaints Genitourinary: no complaints Musculoskeletal: no complaints Exam/Review of Systems Vital Signs Vitals Vital Signs Date Time Temp Pulse Resp B/P Pulse Ox O2 Delivery O2 Flow Rate FiO2 01/10/17 08:07 98.1 109 18 130/82 96 Intake and Output 01/09/17 01/09/17 01/10/17 15:00 23:00 07:00 Intake Total 600 ml 1620 ml 1000 ml Balance 600 ml 1620 ml 1000 ml Exam Constitutional: alert, well developed Respiratory: clear to auscultation, normal air movement Cardiovascular: nl pulses, regular rate and rhythm Gastrointestinal: non-tender, soft Musculoskeletal: nl extremities to inspection Extremities: normal pulses Neurological: nl mental status, nl speech Results Result Diagram: 01/10/17 0450 01/10/17 0450 Results 24 hrs Laboratory Tests Test 01/10/17 04:50 White Blood Count 4.8 # Red Blood Count 3.15 L Hemoglobin 8.8 L Hematocrit 27.7 L Mean Corpuscular Volume 87.9 Mean Corpuscular Hemoglobin 27.9 L Mean Corpuscular Hemoglobin Concent 31.8 L Red Cell Distribution Width 17.2 H Platelet Count 188 Mean Platelet Volume 9.8 Neutrophils % 94.3 H Lymphocytes % 3.6 L Monocytes % 1.1 Eosinophils % 0.2 Basophils % 0.0 Nucleated Red Blood Cells % 0.0 Neutrophils # 4.5 Lymphocytes # 0.2 L Monocytes # 0.1 L Eosinophils # 0.0 Basophils # 0.0 Nucleated Red Blood Cells # 0.0 Sodium Level 125 L Potassium Level 3.5 Chloride Level 99 Carbon Dioxide Level 26 Anion Gap 4 L Blood Urea Nitrogen 18 Creatinine 0.91 Glucose Level 102 Calcium Level 7.5 L Total Bilirubin 0.1 L Direct Bilirubin 0.00 Indirect Bilirubin 0.1 Aspartate Amino Transf (AST/SGOT) 124 H Alanine Aminotransferase (ALT/SGPT) 59 Alkaline Phosphatase 148 H Total Protein 4.8 L Albumin 2.6 L Globulin 2.20 Albumin/Globulin Ratio 1.18 Medications Medications Current Medications Ondansetron HCl (Zofran Inj) 4 mg Q6H PRN IV NAUSEA AND/OR VOMITING Last administered on 01/09/17 13:57; Admin Dose 4 MG; Start 01/03/17 at 12:00 Enoxaparin Sodium (Lovenox) 40 mg DAILY SC Last administered on 01/10/17 09:07 ; Admin Dose 40 MG; Start 01/04/17 at 09:00 Zolpidem Tartrate (Ambien) 5 mg HS PRN PO INSOMNIA; Start 01/03/17 at 12:00 Ondansetron HCl (Zofran Tab) 8 mg Q8H PRN PO NAUSEA AND/OR VOMITING; Start 01/04 at 09:30 Metoclopramide HCl (Reglan) 10 mg Q8H PRN PO NAUSEA AND/OR VOMITING Last administered on 01/09/17 18:00; Admin Dose 10 MG; Start 01/04/17 at 09:30 Hydrocortisone (Solu-Cortef) 100 mg PRN PRN IV X 1 FOR RXN TO CHEMO; Start 01/04 at 09:30 Diphenhydramine HCl (Benadryl) 50 mg PRN PRN IV RXN TO CHEMO, X 1 DOSE; Start 01/04/17 at 09:30 Methylnaltrexone [place] (Relistor) 12 mg Q48H SC Last administered on 13:38; Admin Dose 12 MG; Start 01/04/17 at 13:30 Famotidine (Pepcid) 20 mg BID PO Last administered on 01/10/17 09:02; Admin Dose 20 MG; Start 01/05/17 at 09:00 Polyethylene Glycol (Miralax) 17 gm DAILY PRN PO CONSTIPATION Last administered on 01/08/17 08:31; Admin Dose 17 GM; Start 01/07/17 at 10:00 Docusate Sodium (Colace) 100 mg BID PO Last administered on 01/10/17 09:02; Admin Dose 100 MG; Start 01/07/17 at 10:00 Methadone HCl (Methadone Liq) 5 mg Q8 PO Last administered on 01/10/17 06:04; Admin Dose 5 MG; Start 01/08/17 at 14:00 Hydromorphone HCl 2 mg 2 mg Q2H PRN IV PAIN Last administered on 01/08/17 17: 43; Admin Dose 2 MG; Start 01/08/17 at 11:30 Sodium Chloride (NS) 1,000 ml @ 100 mls/hr Q10H IV Last administered on 06:51; Admin Dose 100 MLS/HR; Start 01/08/17 at 10:30 Prochlorperazine (Compazine) 10 mg TID PO Last administered on 01/10/17 12:40 ; Admin Dose 10 MG; Start 01/09/17 at 15:00 LATRICIA GABRIEL Jan 10, 2017 13:52
[2017-01-10] MEDS: METHYLNALTREXONE 12 MG/0.6 ML VIAL SC SCH (14:33)
--- NOTE | 2017-01-10 17:18 | CONS ---
Date/Time of Note Date/Time of Note DATE: 01/10/17 TIME: 17:14 Assessment/Plan Assessment/Plan Additional Assessment/Plan 56yo female with metastatic uterine carcinosarcoma sarcoma now admitted for cycle 4 of ifex/ taxol, however now presenting with worsening abdominal pain and CT scan consistent with progression of disease. Incidentally found to have Hyponatremia which is worsening during this hospital stay. Likely hyponatremia in the setting of elevated ADH, Euvolemic Will order blood and urine studies Fluid restriction at this time DC NS at this time Will cont to monitor closely No acute indication for Hypertonic saline at this time. Consultation Date/Type/Reason Admit Date/Time Jan 03, 2017 at 10:17 Date of Consultation: Jan 10, 2017 Type of Consultation: Renal Reason for Consultation Hyponatremia Referring Provider: ARLENE CHOWDARY MD Hx of Present Illness 56 year-old female who was admitted for her chemotherapy for history of stage IV endometrial carcinoma, status post total abdominal hysterectomy and bilateral salpingo-oophorectomy and rectosigmoid with low anastomosis by Dr. Bueno in September 2016. The patient is followed by Dr. Logan Oncology. During this admission chemistry checked daily and incidentally found to have progressive decrease in serum Na levels. Nephrology consulted for Hyponatremia, No Hx of GERARD. Pt is not on diuretic Rx. Constitutional: improved, requiring IVF Eyes: no complaints Respiratory: no complaints Cardiovascular: no complaints Gastrointestinal: no complaints Genitourinary: no complaints Musculoskeletal: no complaints Skin: no complaints Neurologic: no complaints Psychological: anxiety, depression Past Medical History Medical History: hypertension Past Surgical History Past Surgical Hx: other (TAHBSO -04) Social History Alcohol Use: none Smoking Status: Never smoker Drug Use: none Exam/Review of Systems Vital Signs Vitals Vital Signs Date Time Temp Pulse Resp B/P Pulse Ox O2 Delivery O2 Flow Rate FiO2 01/10/17 08:07 98.1 109 18 130/82 96 Intake and Output 01/09/17 01/09/17 01/10/17 15:00 23:00 07:00 Intake Total 600 ml 1620 ml 1000 ml Balance 600 ml 1620 ml 1000 ml Exam Constitutional: alert, oriented, No distress ENMT: mucosa pink and moist Neck: No jvd Respiratory: clear to auscultation Cardiovascular: regular rate and rhythm, No edema Gastrointestinal: soft, tender, No rebound or guarding Extremities: No edema Neurological: AGING 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 II-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 intact, nl mental status, No lethargic Skin: No diaphoresis Results Result Diagram: 01/10/1744901/10/17449 Results 24 hrs Laboratory Tests Test 01/10/17 04:50 White Blood Count 4.8 # Red Blood Count 3.15 L Hemoglobin 8.8 L Hematocrit 27.7 L Mean Corpuscular Volume 87.9 Mean Corpuscular Hemoglobin 27.9 L Mean Corpuscular Hemoglobin Concent 31.8 L Red Cell Distribution Width 17.2 H Platelet Count 188 Mean Platelet Volume 9.8 Neutrophils % 94.3 H Lymphocytes % 3.6 L Monocytes % 1.1 Eosinophils % 0.2 Basophils % 0.0 Nucleated Red Blood Cells % 0.0 Neutrophils # 4.5 Lymphocytes # 0.2 L Monocytes # 0.1 L Eosinophils # 0.0 Basophils # 0.0 Nucleated Red Blood Cells # 0.0 Sodium Level 125 L Potassium Level 3.5 Chloride Level 99 Carbon Dioxide Level 26 Anion Gap 4 L Blood Urea Nitrogen 18 Creatinine 0.91 Glucose Level 102 Calcium Level 7.5 L Total Bilirubin 0.1 L Direct Bilirubin 0.00 Indirect Bilirubin 0.1 Aspartate Amino Transf (AST/SGOT) 124 H Alanine Aminotransferase (ALT/SGPT) 59 Alkaline Phosphatase 148 H Total Protein 4.8 L Albumin 2.6 L Globulin 2.20 Albumin/Globulin Ratio 1.18 Medications Medications Current Medications Ondansetron HCl (Zofran Inj) 4 mg Q6H PRN IV NAUSEA AND/OR VOMITING Last administered on 01/09/17 13:57; Admin Dose 4 MG; Start 01/03/17 at 12:00 Enoxaparin Sodium (Lovenox) 40 mg DAILY SC Last administered on 01/10/17 09:07 ; Admin Dose 40 MG; Start 01/04/17 at 09:00 Zolpidem Tartrate (Ambien) 5 mg HS PRN PO INSOMNIA; Start 01/03/17 at 12:00 Ondansetron HCl (Zofran Tab) 8 mg Q8H PRN PO NAUSEA AND/OR VOMITING; Start 01/04 at 09:30 Metoclopramide HCl (Reglan) 10 mg Q8H PRN PO NAUSEA AND/OR VOMITING Last administered on 01/09/17 18:00; Admin Dose 10 MG; Start 01/04/17 at 09:30 Hydrocortisone (Solu-Cortef) 100 mg PRN PRN IV X 1 FOR RXN TO CHEMO; Start 01/04 at 09:30 Diphenhydramine HCl (Benadryl) 50 mg PRN PRN IV RXN TO CHEMO, X 1 DOSE; Start 01/04/17 at 09:30 Methylnaltrexone [place] (Relistor) 12 mg Q48H SC Last administered on 14:33; Admin Dose 12 MG; Start 01/04/17 at 13:30 Famotidine (Pepcid) 20 mg BID PO Last administered on 01/10/17 09:02; Admin Dose 20 MG; Start 01/05/17 at 09:00 Polyethylene Glycol (Miralax) 17 gm DAILY PRN PO CONSTIPATION Last administered on 01/08/17 08:31; Admin Dose 17 GM; Start 01/07/17 at 10:00 Docusate Sodium (Colace) 100 mg BID PO Last administered on 01/10/17 09:02; Admin Dose 100 MG; Start 01/07/17 at 10:00 Methadone HCl (Methadone Liq) 5 mg Q8 PO Last administered on 01/10/17 14:33; Admin Dose 5 MG; Start 01/08/17 at 14:00 Hydromorphone HCl (Dilaudid) 2 mg Q2H PRN IV PAIN Last administered on 17:43; Admin Dose 2 MG; Start 01/08/17 at 11:30 Prochlorperazine (Compazine) 10 mg TID PO Last administered on 01/10/17 12:40 ; Admin Dose 10 MG; Start 01/09/17 at 15:00 Procedures Procedures IMPRESSION: History of uterine cancer with increased abdominopelvic lymphadenopathy and peritoneal carcinomatosis, as described above. Enlarged anterior mediastinal and cardiophrenic lymph nodes are also present. No evidence of pulmonary metastatic disease. Mild moderate right and mild left hydronephrosis, unchanged. SOLOMON SILVA MD Jan 10, 2017 17:17
[2017-01-10 19:15] VITALS: BP 131/78; RESP 18
[2017-01-11 00:03] LABS: ADD UMIC YES; UR AMORPHOUS CRYSTAL FEW /HPF (NONE SEEN); UR ASCORBIC ACID NEGATIVE (NEGATIVE); UR BACTERIA FEW /HPF (NONE SEEN); UR BILIRUBIN (Dip) NEGATIVE (NEGATIVE); UR BLOOD (Dip) NEGATIVE (NEGATIVE); UR CLARITY SLIGHTLY CLOUDY (CLEAR); UR COLOR YELLOW (YELLOW); UR GLUCOSE (Dip) NEGATIVE (NEGATIVE); UR KETONES (Dip) NEGATIVE (NEGATIVE); UR LEUKOCYTE ESTERASE (Dip) NEGATIVE Leu/ul (NEGATIVE); UR MUCUS FEW /HPF (NONE SEEN); UR NITRITE (Dip) NEGATIVE (NEGATIVE); UR RBC 1 /HPF (0-5); UR SPECIFIC GRAVITY (Dip) 1.019 (1.003-1.030); UR TOTAL PROTEIN (Dip) 1+ mg/dl (NEGATIVE); UR UROBILINOGEN (Dip) NEGATIVE (NEGATIVE)
[2017-01-11] MEDS: METHADONE (1 MG/ML 5 ML PO UD SYG) PO SCH ×4 (05:02→21:45)
[2017-01-11 05:46] LABS: ADD SCAN DIFF NO
[2017-01-11 05:48] LABS: ABNORMAL IP MESSAGE 1; BASOPHILS % 0.3 % (0.0-2.0); EOSINOPHILS % 0.3 % (0.0-7.0); HEMATOCRIT 27.4 % (37.0-47.0); HEMOGLOBIN 8.7 g/dl (12.0-16.0); LYMPHOCYTES # 0.2 10^3/ul (0.8-2.9); LYMPHOCYTES % 4.6 % (15.0-51.0); MEAN CORPUSCULAR HGB CONC 31.8 g/dl (32.0-37.0); MEAN CORPUSCULAR VOLUME 88.1 fl (82.0-101.0); MEAN PLATELET VOLUME 9.9 fl (7.4-10.4); MONOCYTE # 0.1 10^3/ul (0.3-0.9); MONOCYTES % 3.7 % (0.0-11.0); NEUTROPHILS % 89.9 % (39.0-77.0); PLATELET COUNT 199 10^3/UL (140-415); RED BLOOD COUNT 3.11 10^6/ul (4.20-5.40); RED CELL DISTRIBUTION WIDTH 16.8 % (11.5-14.5); WHITE BLOOD COUNT 3.3 10^3/ul (4.8-10.8)
[2017-01-11 06:11] LABS: URIC ACID 4.4 mg/dl (3.1-7.9)
[2017-01-11 06:14] LABS: CALCIUM 7.9 mg/dl (8.4-10.2); CREATININE 0.95 mg/dl (0.44-1.00)
[2017-01-11 06:36] LABS: THYROID STIMULATING HORMONE 4.36 MIU/L (0.465-4.680)
[2017-01-11 07:00] VITALS: BP 146/83; RESP 18
[2017-01-11] MEDS: FAMOTIDINE 20 MG TAB PO SCH ×2 (09:31→21:43)
[2017-01-11] MEDS: DOCUSATE SODIUM 100 MG CAP PO SCH ×2 (09:31→21:43)
[2017-01-11] MEDS: PROCHLORPERAZINE 10 MG TAB PO SCH ×3 (09:31→21:43)
[2017-01-11] MEDS: ENOXAPARIN 40 MG/0.4 ML SYG SC SCH (09:36)
--- NOTE | 2017-01-11 15:45 | CONS ---
Date/Time of Note Date/Time of Note DATE: 01/11/17 TIME: 15:42 Assessment/Plan Assessment/Plan Chief Complaint/Hosp Course 56yo female with metastatic uterine carcinosarcoma sarcoma now admitted for cycle 4 of ifex/ taxol, however now presenting with worsening abdominal pain and CT scan consistent with progression of disease. - CT scan shows increased abdominopelvic lymphadenopathy and peritoneal carcinomatosis, for instance right cardiophrenic LN increased from 1.4 to 1.8, anterior aortocaval lymph node unchanged, posterior aortocaval lymph node increased from 1.2 to 1.6cm, right iliac chain sonny mass now 6.9 x 3.6 cm, previously 6.1 x 3.3 cm, and RP LAD more confluent, with extensive presacral thickening and numerous enhancing confluent nodules throughout the peritoneum and increased since prior. Trace ascites. - Plan was for a total of 4 cycles of ifosfamide/taxol followd by 4 cycles of carbo/taxol per discussion with Dr. Bueno. Given worsening abdominal pain and scan consistent with progression of disease, carbo/taxol was started on . - continue pain control recommendations per Dr. Patino. Per Dr. Patino, methadone and prn meds increased. Once pain well controlled, ok to discharge home from oncology perspective. - s/p IV fluids for mild acute renal failure likely prerenal, improved. If PO intake does not improve adequately, may need to set patient up for outpatient hydration. - appreciate renal recs for hyponatremia - LFTs likely related to chemotherapy, continue to monitor. - Patient received decadron 20 mg PO 12 hours and 6 hours prior to paclitaxel - monitor Hgb, transfuse if Hgb < 7-8 - zofran prn, added compazine and reglan prn nausea/vomiting. - magnesium citrate now, miralax prn, colace for constipation - s/p port placement during the last admission Patient should follow-up with me in clinic Chemo regimen Carboplatin AUC 6 IV D1 Taxol 175 mg/m2 IV D1 Problems: Consultation Date/Type/Reason Admit Date/Time Jan 03, 2017 at 10:17 Initial Consult Date 01/03/17 Type of Consultation: Oncology Referring Provider: ARLENE CHOWDARY MD 24 HR Interval Summary Free Text/Dictation The patient states that her pain is better controlled, no nausea or vomiting today. Still has minimal PO intake. Exam/Review of Systems Vital Signs Vitals Vital Signs Date Time Temp Pulse Resp B/P Pulse Ox O2 Delivery O2 Flow Rate FiO2 01/11/17 07:00 98.7 111 18 146/83 97 Intake and Output 01/10/17 01/10/17 01/11/17 15:00 23:00 07:00 Intake Total 1680 ml 360 ml Balance 1680 ml 360 ml Exam Constitutional: alert, frail, oriented Psych: anxiety, depression Head: atraumatic, normocephalic Eyes: nl conjunctiva ENMT: nl external ears & nose Neck: non-tender, supple Respiratory: clear to auscultation Cardiovascular: nl pulses, regular rate and rhythm Gastrointestinal: tender Musculoskeletal: nl extremities to inspection Results Result Diagram: 01/11/17 0508 01/11/17 0508 Results 24 hrs Laboratory Tests Test 01/10/17 19:30 01/11/17 05:08 Urine Color YELLOW Urine Clarity SLIGHTLY CLOUDY A Urine pH 5.0 Urine Specific [place] 1.019 Urine Ketones NEGATIVE Urine Nitrite NEGATIVE Urine Bilirubin NEGATIVE Urine Urobilinogen NEGATIVE Urine Leukocyte Esterase NEGATIVE Urine Microscopic RBC 1 Urine Microscopic WBC 7 H Urine Amorphous Crystals FEW A Urine Bacteria FEW A Urine Mucus FEW A Urine Hemoglobin NEGATIVE Urine Osmolality 641 Urine Random Sodium 37 Urine Glucose NEGATIVE Urine Total Protein 1+ H White Blood Count 3.3 #L Red Blood Count 3.11 L Hemoglobin 8.7 L Hematocrit 27.4 L Mean Corpuscular Volume 88.1 Mean Corpuscular Hemoglobin 28.0 L Mean Corpuscular Hemoglobin Concent 31.8 L Red Cell Distribution Width 16.8 H Platelet Count 199 Mean Platelet Volume 9.9 Neutrophils % 89.9 H Lymphocytes % 4.6 L Monocytes % 3.7 Eosinophils % 0.3 Basophils % 0.3 Nucleated Red Blood Cells % 0.0 Neutrophils # 3.0 Lymphocytes # 0.2 L Monocytes # 0.1 L Eosinophils # 0.0 Basophils # 0.0 Nucleated Red Blood Cells # 0.0 Sodium Level 126 L Potassium Level 4.0 Chloride Level 99 Carbon Dioxide Level 27 Anion Gap 4 L Blood Urea Nitrogen 15 Creatinine 0.95 Glucose Level 88 Uric Acid 4.4 Calcium Level 7.9 L Thyroid Stimulating Hormone (TSH) 4.360 Random Cortisol 17.6 Medications Medications Current Medications Ondansetron HCl (Zofran Inj) 4 mg Q6H PRN IV NAUSEA AND/OR VOMITING Last administered on 01/09/17 13:57; Admin Dose 4 MG; Start 01/03/17 at 12:00 Enoxaparin Sodium (Lovenox) 40 mg DAILY SC Last administered on 01/11/17 09:36 ; Admin Dose 40 MG; Start 01/04/17 at 09:00 Zolpidem Tartrate (Ambien) 5 mg HS PRN PO INSOMNIA; Start 01/03/17 at 12:00 Ondansetron HCl (Zofran Tab) 8 mg Q8H PRN PO NAUSEA AND/OR VOMITING; Start 01/04 at 09:30 Metoclopramide HCl (Reglan) 10 mg Q8H PRN PO NAUSEA AND/OR VOMITING Last administered on 01/09/17 18:00; Admin Dose 10 MG; Start 01/04/17 at 09:30 Hydrocortisone (Solu-Cortef) 100 mg PRN PRN IV X 1 FOR RXN TO CHEMO; Start 01/04 at 09:30 Diphenhydramine HCl (Benadryl) 50 mg PRN PRN IV RXN TO CHEMO, X 1 DOSE; Start 01/04/17 at 09:30 Methylnaltrexone [place] (Relistor) 12 mg Q48H SC Last administered on 14:33; Admin Dose 12 MG; Start 01/04/17 at 13:30 Famotidine (Pepcid) 20 mg BID PO Last administered on 01/11/17 09:31; Admin Dose 20 MG; Start 01/05/17 at 09:00 Polyethylene Glycol (Miralax) 17 gm DAILY PRN PO CONSTIPATION Last administered on 01/08/17 08:31; Admin Dose 17 GM; Start 01/07/17 at 10:00 Docusate Sodium (Colace) 100 mg BID PO Last administered on 01/11/17 09:31; Admin Dose 100 MG; Start 01/07/17 at 10:00 Methadone HCl (Methadone Liq) 5 mg Q8 PO Last administered on 01/10/17 20:10; Admin Dose 5 MG; Start 01/08/17 at 14:00 Hydromorphone HCl (Dilaudid) 2 mg Q2H PRN IV PAIN Last administered on 17:43; Admin Dose 2 MG; Start 01/08/17 at 11:30 Prochlorperazine (Compazine) 10 mg TID PO Last administered on 01/11/17 12:28 ; Admin Dose 10 MG; Start 01/09/17 at 15:00 TOLINDA MD Jan 11, 2017 15:45
--- NOTE | 2017-01-11 16:33 | CONS ---
Date/Time of Note Date/Time of Note DATE: 01/11/17 TIME: 16:32 Assessment/Plan Assessment/Plan Additional Assessment/Plan 56yo female with metastatic uterine carcinosarcoma sarcoma now admitted for cycle 4 of ifex/ taxol, however now presenting with worsening abdominal pain and CT scan consistent with progression of disease. Incidentally found to have Hyponatremia which is worsening during this hospital stay. Likely hyponatremia in the setting of elevated ADH, Euvolemic F/u Urine studies Fluid restriction at this time Will cont to monitor closely No acute indication for Hypertonic saline at this time. Consultation Date/Type/Reason Admit Date/Time Jan 03, 2017 at 10:17 Initial Consult Date 01/10/17 Type of Consultation: Renal Referring Provider: ARLENE CHOWDARY MD 24 HR Interval Summary Free Text/Dictation No new complaints Exam/Review of Systems Vital Signs Vitals Vital Signs Date Time Temp Pulse Resp B/P Pulse Ox O2 Delivery O2 Flow Rate FiO2 01/11/17 07:00 98.7 111 18 146/83 97 Intake and Output 01/10/17 01/10/17 01/11/17 15:00 23:00 07:00 Intake Total 1680 ml 360 ml Balance 1680 ml 360 ml Exam Constitutional: No distress ENMT: mucosa pink and moist Neck: No jvd Respiratory: clear to auscultation Cardiovascular: regular rate and rhythm, No edema Gastrointestinal: soft Neurological: 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 LEAD II-XII intact, nl mental status, No confused, No lethargic Results Result Diagram: 01/11/17 0508 01/11/17 0508 Results 24 hrs Laboratory Tests Test 01/10/17 19:30 01/11/17 05:08 Urine Color YELLOW Urine Clarity SLIGHTLY CLOUDY A Urine pH 5.0 Urine Specific [place] 1.019 Urine Ketones NEGATIVE Urine Nitrite NEGATIVE Urine Bilirubin NEGATIVE Urine Urobilinogen NEGATIVE Urine Leukocyte Esterase NEGATIVE Urine Microscopic RBC 1 Urine Microscopic WBC 7 H Urine Amorphous Crystals FEW A Urine Bacteria FEW A Urine Mucus FEW A Urine Hemoglobin NEGATIVE Urine Osmolality 641 Urine Random Sodium 37 Urine Glucose NEGATIVE Urine Total Protein 1+ H White Blood Count 3.3 #L Red Blood Count 3.11 L Hemoglobin 8.7 L Hematocrit 27.4 L Mean Corpuscular Volume 88.1 Mean Corpuscular Hemoglobin 28.0 L Mean Corpuscular Hemoglobin Concent 31.8 L Red Cell Distribution Width 16.8 H Platelet Count 199 Mean Platelet Volume 9.9 Neutrophils % 89.9 H Lymphocytes % 4.6 L Monocytes % 3.7 Eosinophils % 0.3 Basophils % 0.3 Nucleated Red Blood Cells % 0.0 Neutrophils # 3.0 Lymphocytes # 0.2 L Monocytes # 0.1 L Eosinophils # 0.0 Basophils # 0.0 Nucleated Red Blood Cells # 0.0 Sodium Level 126 L Potassium Level 4.0 Chloride Level 99 Carbon Dioxide Level 27 Anion Gap 4 L Blood Urea Nitrogen 15 Creatinine 0.95 Glucose Level 88 Uric Acid 4.4 Calcium Level 7.9 L Thyroid Stimulating Hormone (TSH) 4.360 Random Cortisol 17.6 Medications Medications Current Medications Ondansetron HCl (Zofran Inj) 4 mg Q6H PRN IV NAUSEA AND/OR VOMITING Last administered on 01/09/17 13:57; Admin Dose 4 MG; Start 01/03/17 at 12:00 Enoxaparin Sodium (Lovenox) 40 mg DAILY SC Last administered on 01/11/17 09:36 ; Admin Dose 40 MG; Start 01/04/17 at 09:00 Zolpidem Tartrate (Ambien) 5 mg HS PRN PO INSOMNIA; Start 01/03/17 at 12:00 Ondansetron HCl (Zofran Tab) 8 mg Q8H PRN PO NAUSEA AND/OR VOMITING; Start 01/04 at 09:30 Metoclopramide HCl (Reglan) 10 mg Q8H PRN PO NAUSEA AND/OR VOMITING Last administered on 01/09/17 18:00; Admin Dose 10 MG; Start 01/04/17 at 09:30 Hydrocortisone (Solu-Cortef) 100 mg PRN PRN IV X 1 FOR RXN TO CHEMO; Start 01/04 at 09:30 Diphenhydramine HCl (Benadryl) 50 mg PRN PRN IV RXN TO CHEMO, X 1 DOSE; Start 01/04/17 at 09:30 Methylnaltrexone [place] (Relistor) 12 mg Q48H SC Last administered on 14:33; Admin Dose 12 MG; Start 01/04/17 at 13:30 Famotidine (Pepcid) 20 mg BID PO Last administered on 01/11/17 09:31; Admin Dose 20 MG; Start 01/05/17 at 09:00 Polyethylene Glycol (Miralax) 17 gm DAILY PRN PO CONSTIPATION Last administered on 01/08/17 08:31; Admin Dose 17 GM; Start 01/07/17 at 10:00 Docusate Sodium (Colace) 100 mg BID PO Last administered on 01/11/17 09:31; Admin Dose 100 MG; Start 01/07/17 at 10:00 Methadone HCl (Methadone Liq) 5 mg Q8 PO Last administered on 01/10/17 20:10; Admin Dose 5 MG; Start 01/08/17 at 14:00 Hydromorphone HCl (Dilaudid) 2 mg Q2H PRN IV PAIN Last administered on 17:43; Admin Dose 2 MG; Start 01/08/17 at 11:30 Prochlorperazine (Compazine) 10 mg TID PO Last administered on 01/11/17 12:28 ; Admin Dose 10 MG; Start 01/09/17 at 15:00 SOLOMON SILVA MD Jan 11, 2017 16:33
--- NOTE | 2017-01-11 16:47 | PN ---
Date/Time of Note Date/Time of Note DATE: 01/11/17 TIME: 16:45 Assessment/Plan VTE Prophylaxis VTE Prophylaxis Intervention: SCD's Lines/Catheters IV C[facility]ter Type (from [facility]): PORT A CATH Urinary Cath still in place: No Assessment/Plan Chief Complaint/Hosp Course Patient nausea is under control, continues to have poor appetite, pain is better current. Assessment/Plan - Hyponatremia, Dr. Solorio is following in nephrology consultation - Metastatic uterine carcinosarcoma, admitted for cycle 4 of ifex/ taxol, however now presenting with worsening abdominal pain and CT scan consistent with progression of disease. S/p carbo/taxol on 01/04. Dr. Hoang is following in oncology consultation. Dr. Doyle is following in pain management consultation. - Status post total abdominal hysterectomy and bilateral salpingo-oophorectomy and rectosigmoid anastomosis in September [address] Bueno. - Gastritis by history, continue Pepcid. - Constipation, continue Relistor, Colace. Further recommendations based on clinical course. Plan of care discussed with Dr. Richardson. Problems: Exam/Review of Systems Vital Signs Vitals Vital Signs Date Time Temp Pulse Resp B/P Pulse Ox O2 Delivery O2 Flow Rate FiO2 01/11/17 07:00 98.7 111 18 146/83 97 Intake and Output 01/10/17 01/10/17 01/11/17 15:00 23:00 07:00 Intake Total 1680 ml 360 ml Balance 1680 ml 360 ml Exam Constitutional: alert, oriented Head: atraumatic, normocephalic Neck: supple Respiratory: normal air movement Cardiovascular: nl pulses Gastrointestinal: non-tender, other (Epigastric tenderness), soft Musculoskeletal: nl gait and stance Extremities: normal pulses Neurological: nl mental status Results Result Diagram: 01/11/17 0508 01/11/17 0508 Results 24 hrs Laboratory Tests Test 01/10/17 19:30 01/11/17 05:08 Urine Color YELLOW Urine Clarity SLIGHTLY CLOUDY A Urine pH 5.0 Urine Specific [place] 1.019 Urine Ketones NEGATIVE Urine Nitrite NEGATIVE Urine Bilirubin NEGATIVE Urine Urobilinogen NEGATIVE Urine Leukocyte Esterase NEGATIVE Urine Microscopic RBC 1 Urine Microscopic WBC 7 H Urine Amorphous Crystals FEW A Urine Bacteria FEW A Urine Mucus FEW A Urine Hemoglobin NEGATIVE Urine Osmolality 641 Urine Random Sodium 37 Urine Glucose NEGATIVE Urine Total Protein 1+ H White Blood Count 3.3 #L Red Blood Count 3.11 L Hemoglobin 8.7 L Hematocrit 27.4 L Mean Corpuscular Volume 88.1 Mean Corpuscular Hemoglobin 28.0 L Mean Corpuscular Hemoglobin Concent 31.8 L Red Cell Distribution Width 16.8 H Platelet Count 199 Mean Platelet Volume 9.9 Neutrophils % 89.9 H Lymphocytes % 4.6 L Monocytes % 3.7 Eosinophils % 0.3 Basophils % 0.3 Nucleated Red Blood Cells % 0.0 Neutrophils # 3.0 Lymphocytes # 0.2 L Monocytes # 0.1 L Eosinophils # 0.0 Basophils # 0.0 Nucleated Red Blood Cells # 0.0 Sodium Level 126 L Potassium Level 4.0 Chloride Level 99 Carbon Dioxide Level 27 Anion Gap 4 L Blood Urea Nitrogen 15 Creatinine 0.95 Glucose Level 88 Uric Acid 4.4 Calcium Level 7.9 L Thyroid Stimulating Hormone (TSH) 4.360 Random Cortisol 17.6 Medications Medications Current Medications Ondansetron HCl (Zofran Inj) 4 mg Q6H PRN IV NAUSEA AND/OR VOMITING Last administered on 01/09/17 13:57; Admin Dose 4 MG; Start 01/03/17 at 12:00 Enoxaparin Sodium (Lovenox) 40 mg DAILY SC Last administered on 01/11/17 09:36 ; Admin Dose 40 MG; Start 01/04/17 at 09:00 Zolpidem Tartrate (Ambien) 5 mg HS PRN PO INSOMNIA; Start 01/03/17 at 12:00 Ondansetron HCl (Zofran Tab) 8 mg Q8H PRN PO NAUSEA AND/OR VOMITING; Start 01/04 at 09:30 Metoclopramide HCl (Reglan) 10 mg Q8H PRN PO NAUSEA AND/OR VOMITING Last administered on 01/09/17 18:00; Admin Dose 10 MG; Start 01/04/17 at 09:30 Hydrocortisone (Solu-Cortef) 100 mg PRN PRN IV X 1 FOR RXN TO CHEMO; Start 01/04 at 09:30 Diphenhydramine HCl (Benadryl) 50 mg PRN PRN IV RXN TO CHEMO, X 1 DOSE; Start 01/04/17 at 09:30 Methylnaltrexone [place] (Relistor) 12 mg Q48H SC Last administered on 14:33; Admin Dose 12 MG; Start 01/04/17 at 13:30 Famotidine (Pepcid) 20 mg BID PO Last administered on 01/11/17 09:31; Admin Dose 20 MG; Start 01/05/17 at 09:00 Polyethylene Glycol (Miralax) 17 gm DAILY PRN PO CONSTIPATION Last administered on 01/08/17 08:31; Admin Dose 17 GM; Start 01/07/17 at 10:00 Docusate Sodium (Colace) 100 mg BID PO Last administered on 01/11/17 09:31; Admin Dose 100 MG; Start 01/07/17 at 10:00 Methadone HCl (Methadone Liq) 5 mg Q8 PO Last administered on 01/10/17 20:10; Admin Dose 5 MG; Start 01/08/17 at 14:00 Hydromorphone HCl (Dilaudid) 2 mg Q2H PRN IV PAIN Last administered on 17:43; Admin Dose 2 MG; Start 01/08/17 at 11:30 Prochlorperazine (Compazine) 10 mg TID PO Last administered on 01/11/17 12:28 ; Admin Dose 10 MG; Start 01/09/17 at 15:00 ELVIN TEIXEIRA Jan 11, 2017 16:47
[2017-01-11 20:18] VITALS: BP 138/79; RESP 18
[2017-01-12 05:02] LABS: ADD SCAN DIFF NO
[2017-01-12 05:08] LABS: ABNORMAL IP MESSAGE 1; EOSINOPHILS % 0.4 % (0.0-7.0); HEMATOCRIT 25.7 % (37.0-47.0); HEMOGLOBIN 8.5 g/dl (12.0-16.0); LYMPHOCYTES # 0.2 10^3/ul (0.8-2.9); LYMPHOCYTES % 7.4 % (15.0-51.0); MEAN CORPUSCULAR HEMOGLOBIN 28.6 pg (29.0-33.0); MEAN CORPUSCULAR HGB CONC 33.1 g/dl (32.0-37.0); MEAN CORPUSCULAR VOLUME 86.5 fl (82.0-101.0); MEAN PLATELET VOLUME 9.8 fl (7.4-10.4); MONOCYTE # 0.2 10^3/ul (0.3-0.9); NEUTROPHIL # 2.1 10^3/ul (1.6-7.5); NEUTROPHILS % 84.4 % (39.0-77.0); PLATELET COUNT 193 10^3/UL (140-415); RED BLOOD COUNT 2.97 10^6/ul (4.20-5.40); RED CELL DISTRIBUTION WIDTH 16.5 % (11.5-14.5); WHITE BLOOD COUNT 2.4 10^3/ul (4.8-10.8)
[2017-01-12 05:42] LABS: CALCIUM 8.2 mg/dl (8.4-10.2); CREATININE 0.83 mg/dl (0.44-1.00); POTASSIUM 4.1 mmol/L (3.5-5.1)
[2017-01-12] MEDS: METHADONE (1 MG/ML 5 ML PO UD SYG) PO SCH ×3 (06:00→22:00)
[2017-01-12 08:08] VITALS: BP 127/74; RESP 16
[2017-01-12] MEDS: DOCUSATE SODIUM 100 MG CAP PO SCH ×2 (08:24→21:00)
[2017-01-12] MEDS: PROCHLORPERAZINE 10 MG TAB PO SCH ×3 (08:24→21:24)
[2017-01-12] MEDS: FAMOTIDINE 20 MG TAB PO SCH ×2 (08:24→21:24)
[2017-01-12] MEDS: ENOXAPARIN 40 MG/0.4 ML SYG SC SCH (08:35)
--- NOTE | 2017-01-12 09:03 | PN ---
Date/Time of Note Date/Time of Note DATE: 01/12/17 TIME: 09:01 Assessment/Plan VTE Prophylaxis VTE Prophylaxis Intervention: other Assessment/Plan Assessment/Plan 56yo female with metastatic uterine carcinosarcoma sarcoma now admitted for cycle 4 of ifex/ taxol, however now presenting with worsening abdominal pain and CT scan consistent with progression of disease. Incidentally found to have Hyponatremia which is worsening during this hospital stay. Likely hyponatremia in the setting of elevated ADH, Euvolemic F/u Urine studies Fluid restriction at this time Will cont to monitor closely No acute indication for Hypertonic saline at this time. [id number] na better Exam/Review of Systems Vital Signs Vitals Vital Signs Date Time Temp Pulse Resp B/P Pulse Ox O2 Delivery O2 Flow Rate FiO2 01/12/17 08:08 98.2 108 16 127/74 100 Intake and Output 01/11/17 01/11/17 01/12/17 15:00 23:00 07:00 Intake Total 900 ml 440 ml Output Total 1140 ml 700 ml Balance -240 ml -260 ml Exam Constitutional: alert, oriented, well developed Psych: no complaints Head: atraumatic, normocephalic Eyes: nl conjunctiva ENMT: nl external ears & nose Neck: non-tender, supple Respiratory: clear to auscultation, normal air movement Cardiovascular: regular rate and rhythm Gastrointestinal: soft Extremities: normal pulses Results Result Diagram: 01/12/17 0430 01/12/17 0430 Results 24 hrs Laboratory Tests Test 01/12/17 04:30 White Blood Count 2.4 #L Red Blood Count 2.97 L Hemoglobin 8.5 L Hematocrit 25.7 L Mean Corpuscular Volume 86.5 Mean Corpuscular Hemoglobin 28.6 L Mean Corpuscular Hemoglobin Concent 33.1 Red Cell Distribution Width 16.5 H Platelet Count 193 Mean Platelet Volume 9.8 Neutrophils % 84.4 H Lymphocytes % 7.4 L Monocytes % 7.0 Eosinophils % 0.4 Basophils % 0.0 Nucleated Red Blood Cells % 0.0 Neutrophils # 2.1 Lymphocytes # 0.2 L Monocytes # 0.2 L Eosinophils # 0.0 Basophils # 0.0 Nucleated Red Blood Cells # 0.0 Sodium Level 136 Potassium Level 4.1 Chloride Level 99 Carbon Dioxide Level 29 Anion Gap 12 Blood Urea Nitrogen 12 Creatinine 0.83 Glucose Level 99 Calcium Level 8.2 L Medications Medications Current Medications Ondansetron HCl (Zofran Inj) 4 mg Q6H PRN IV NAUSEA AND/OR VOMITING Last administered on 01/09/17 13:57; Admin Dose 4 MG; Start 01/03/17 at 12:00 Enoxaparin Sodium (Lovenox) 40 mg DAILY SC Last administered on 01/12/17 08:35 ; Admin Dose 40 MG; Start 01/04/17 at 09:00 Zolpidem Tartrate (Ambien) 5 mg HS PRN PO INSOMNIA; Start 01/03/17 at 12:00 Ondansetron HCl (Zofran Tab) 8 mg Q8H PRN PO NAUSEA AND/OR VOMITING; Start 01/04 at 09:30 Metoclopramide HCl (Reglan) 10 mg Q8H PRN PO NAUSEA AND/OR VOMITING Last administered on 01/09/17 18:00; Admin Dose 10 MG; Start 01/04/17 at 09:30 Hydrocortisone (Solu-Cortef) 100 mg PRN PRN IV X 1 FOR RXN TO CHEMO; Start 01/04 at 09:30 Diphenhydramine HCl (Benadryl) 50 mg PRN PRN IV RXN TO CHEMO, X 1 DOSE; Start 01/04/17 at 09:30 Methylnaltrexone [place] (Relistor) 12 mg Q48H SC Last administered on 14:33; Admin Dose 12 MG; Start 01/04/17 at 13:30 Famotidine (Pepcid) 20 mg BID PO Last administered on 01/12/17 08:24; Admin Dose 20 MG; Start 01/05/17 at 09:00 Polyethylene Glycol (Miralax) 17 gm DAILY PRN PO CONSTIPATION Last administered on 01/08/17 08:31; Admin Dose 17 GM; Start 01/07/17 at 10:00 Docusate Sodium (Colace) 100 mg BID PO Last administered on 01/12/17 08:24; Admin Dose 100 MG; Start 01/07/17 at 10:00 Methadone HCl (Methadone Liq) 5 mg Q8 PO Last administered on 01/10/17 20:10; Admin Dose 5 MG; Start 01/08/17 at 14:00 Hydromorphone HCl (Dilaudid) 2 mg Q2H PRN IV PAIN Last administered on 17:43; Admin Dose 2 MG; Start 01/08/17 at 11:30 Prochlorperazine (Compazine) 10 mg TID PO Last administered on 01/12/17 08:24 ; Admin Dose 10 MG; Start 01/09/17 at 15:00 DAVIS KAN MD Jan 12, 2017 09:02
--- NOTE | 2017-01-12 12:14 | PN ---
Date/Time of Note Date/Time of Note DATE: 01/12/17 TIME: 12:11 Assessment/Plan VTE Prophylaxis VTE Prophylaxis Intervention: other Lines/Catheters IV C[facility]ter Type (from [facility] Central Line Urinary Cath still in place: No Assessment/Plan Assessment/Plan - Hyponatremia, Dr. Solorio is following in nephrology consultation - Metastatic uterine carcinosarcoma, admitted for cycle 4 of ifex/ taxol, however now presenting with worsening abdominal pain and CT scan consistent with progression of disease. S/p carbo/taxol on 01/04. Dr. Hoang is following in oncology consultation. Dr. Doyle is following in pain management consultation. - Status post total abdominal hysterectomy and bilateral salpingo-oophorectomy and rectosigmoid anastomosis in [place] [address] Bueno. - Gastritis by history, continue Pepcid. - Constipation, continue Relistor, Colace. Further recommendations based on clinical course. Plan of care discussed with Dr. Richardson. Subjective 24 Hr Interval Summary Free Text/Dictation feels better today, afebrile, WBC dropped, dw staff Constitutional: improved, requiring IVF Respiratory: no complaints Cardiovascular: no complaints Gastrointestinal: no complaints Genitourinary: no complaints Exam/Review of Systems Vital Signs Vitals Vital Signs Date Time Temp Pulse Resp B/P Pulse Ox O2 Delivery O2 Flow Rate FiO2 01/12/17 08:08 98.2 108 16 127/74 100 Intake and Output 01/11/17 01/11/17 01/12/17 15:00 23:00 07:00 Intake Total 900 ml 440 ml Output Total 1140 ml 700 ml Balance -240 ml -260 ml Exam Constitutional: alert, oriented, well developed Neck: non-tender Respiratory: clear to auscultation, normal air movement Cardiovascular: nl pulses, regular rate and rhythm Gastrointestinal: non-tender, soft Musculoskeletal: nl extremities to inspection Extremities: normal pulses Neurological: nl mental status, nl speech Results Result Diagram: 01/12/170 01/12/17 043 Results 24 hrs Laboratory Tests Test 01/12/17 04:30 White Blood Count 2.4 #L Red Blood Count 2.97 L Hemoglobin 8.5 L Hematocrit 25.7 L Mean Corpuscular Volume 86.5 Mean Corpuscular Hemoglobin 28.6 L Mean Corpuscular Hemoglobin Concent 33.1 Red Cell Distribution Width 16.5 H Platelet Count 193 Mean Platelet Volume 9.8 Neutrophils % 84.4 H Lymphocytes % 7.4 L Monocytes % 7.0 Eosinophils % 0.4 Basophils % 0.0 Nucleated Red Blood Cells % 0.0 Neutrophils # 2.1 Lymphocytes # 0.2 L Monocytes # 0.2 L Eosinophils # 0.0 Basophils # 0.0 Nucleated Red Blood Cells # 0.0 Sodium Level 136 Potassium Level 4.1 Chloride Level 99 Carbon Dioxide Level 29 Anion Gap 12 Blood Urea Nitrogen 12 Creatinine 0.83 Glucose Level 99 Calcium Level 8.2 L Medications Medications Current Medications Ondansetron HCl (Zofran Inj) 4 mg Q6H PRN IV NAUSEA AND/OR VOMITING Last administered on 01/09/17 13:57; Admin Dose 4 MG; Start 01/03/17 at 12:00 Enoxaparin Sodium (Lovenox) 40 mg DAILY SC Last administered on 01/12/17 08:35 ; Admin Dose 40 MG; Start 01/04/17 at 09:00 Zolpidem Tartrate (Ambien) 5 mg HS PRN PO INSOMNIA; Start 01/03/17 at 12:00 Ondansetron HCl (Zofran Tab) 8 mg Q8H PRN PO NAUSEA AND/OR VOMITING; Start 01/04 at 09:30 Metoclopramide HCl (Reglan) 10 mg Q8H PRN PO NAUSEA AND/OR VOMITING Last administered on 01/09/17 18:00; Admin Dose 10 MG; Start 01/04/17 at 09:30 Hydrocortisone (Solu-Cortef) 100 mg PRN PRN IV X 1 FOR RXN TO CHEMO; Start 01/04 at 09:30 Diphenhydramine HCl (Benadryl) 50 mg PRN PRN IV RXN TO CHEMO, X 1 DOSE; Start 01/04/17 at 09:30 Methylnaltrexone [place] (Relistor) 12 mg Q48H SC Last administered on 14:33; Admin Dose 12 MG; Start 01/04/17 at 13:30 Famotidine (Pepcid) 20 mg BID PO Last administered on 01/12/17 08:24; Admin Dose 20 MG; Start 01/05/17 at 09:00 Polyethylene Glycol (Miralax) 17 gm DAILY PRN PO CONSTIPATION Last administered on 01/08/17 08:31; Admin Dose 17 GM; Start 01/07/17 at 10:00 Docusate Sodium (Colace) 100 mg BID PO Last administered on 01/12/17 08:24; Admin Dose 100 MG; Start 01/07/17 at 10:00 Methadone HCl (Methadone Liq) 5 mg Q8 PO Last administered on 01/10/17 20:10; Admin Dose 5 MG; Start 01/08/17 at 14:00 Hydromorphone HCl (Dilaudid) 2 mg Q2H PRN IV PAIN Last administered on 17:43; Admin Dose 2 MG; Start 01/08/17 at 11:30 Prochlorperazine (Compazine) 10 mg TID PO Last administered on 01/12/17 08:24 ; Admin Dose 10 MG; Start 01/09/17 at 15:00 LATRICIA GABRIEL Jan 12, 2017 12:13
[2017-01-12] MEDS: METHYLNALTREXONE 12 MG/0.6 ML VIAL SC SCH (13:34)
--- NOTE | 2017-01-12 15:10 | PN ---
Date/Time of Note Date/Time of Note DATE: 01/12/17 TIME: 15:08 Assessment/Plan VTE Prophylaxis VTE Prophylaxis Intervention: anti-embolic stocking Lines/Catheters IV Catheter Type (from [facility]): Central Line Central line still needed: Yes Urinary Cath still in place: No Assessment/Plan Assessment/Plan 56yo female with metastatic uterine carcinosarcoma sarcoma now admitted for cycle 4 of ifex/ taxol, with worsening abdominal pain and CT scan consistent with progression of disease. - CT scan shows increased abdominopelvic lymphadenopathy and peritoneal carcinomatosis, for instance right cardiophrenic LN increased from 1.4 to 1.8, anterior aortocaval lymph node unchanged, posterior aortocaval lymph node increased from 1.2 to 1.6cm, right iliac chain sonny mass now 6.9 x 3.6 cm, previously 6.1 x 3.3 cm, and RP LAD more confluent, with extensive presacral thickening and numerous enhancing confluent nodules throughout the peritoneum and increased since prior. Trace ascites. - Plan was for a total of 4 cycles of ifosfamide/taxol followd by 4 cycles of carbo/taxol per discussion with Dr. Bueno. Given worsening abdominal pain and scan consistent with progression of disease, carbo/taxol was started on . - continue pain control recommendations per Dr. Patino. Per Dr. Patino, methadone and prn meds increased. Patient clinically doing better. continue supportive care. Subjective 24 Hr Interval Summary Constitutional: improved Respiratory: no complaints Gastrointestinal: no complaints Exam/Review of Systems Vital Signs Vitals Vital Signs Date Time Temp Pulse Resp B/P Pulse Ox O2 Delivery O2 Flow Rate FiO2 01/12/17 08:08 98.2 108 16 127/74 100 Intake and Output 01/11/17 01/11/17 01/12/17 14:59 22:59 06:59 Intake Total 900 ml 440 ml Output Total 1140 ml 700 ml Balance -240 ml -260 ml Exam Constitutional: alert, oriented Psych: nl mood/affect Eyes: nl conjunctiva Neck: supple Respiratory: normal air movement Results Result Diagram: 01/12/17 0430 01/12/17 0430 Results 24 hrs Laboratory Tests Test 01/12/17 04:30 White Blood Count 2.4 #L Red Blood Count 2.97 L Hemoglobin 8.5 L Hematocrit 25.7 L Mean Corpuscular Volume 86.5 Mean Corpuscular Hemoglobin 28.6 L Mean Corpuscular Hemoglobin Concent 33.1 Red Cell Distribution Width 16.5 H Platelet Count 193 Mean Platelet Volume 9.8 Neutrophils % 84.4 H Lymphocytes % 7.4 L Monocytes % 7.0 Eosinophils % 0.4 Basophils % 0.0 Nucleated Red Blood Cells % 0.0 Neutrophils # 2.1 Lymphocytes # 0.2 L Monocytes # 0.2 L Eosinophils # 0.0 Basophils # 0.0 Nucleated Red Blood Cells # 0.0 Sodium Level 136 Potassium Level 4.1 Chloride Level 99 Carbon Dioxide Level 29 Anion Gap 12 Blood Urea Nitrogen 12 Creatinine 0.83 Glucose Level 99 Calcium Level 8.2 L Medications Medications Current Medications Ondansetron HCl (Zofran Inj) 4 mg Q6H PRN IV NAUSEA AND/OR VOMITING Last administered on 01/09/17 13:57; Admin Dose 4 MG; Start 01/03/17 at 12:00 Enoxaparin Sodium (Lovenox) 40 mg DAILY SC Last administered on 01/12/17 08:35 ; Admin Dose 40 MG; Start 01/04/17 at 09:00 Zolpidem Tartrate (Ambien) 5 mg HS PRN PO INSOMNIA; Start 01/03/17 at 12:00 Ondansetron HCl (Zofran Tab) 8 mg Q8H PRN PO NAUSEA AND/OR VOMITING; Start 01/04 at 09:30 Metoclopramide HCl (Reglan) 10 mg Q8H PRN PO NAUSEA AND/OR VOMITING Last administered on 01/09/17 18:00; Admin Dose 10 MG; Start 01/04/17 at 09:30 Hydrocortisone (Solu-Cortef) 100 mg PRN PRN IV X 1 FOR RXN TO CHEMO; Start 01/04 at 09:30 Diphenhydramine HCl (Benadryl) 50 mg PRN PRN IV RXN TO CHEMO, X 1 DOSE; Start 01/04/17 at 09:30 Methylnaltrexone [place] (Relistor) 12 mg Q48H SC Last administered on 13:34; Admin Dose 12 MG; Start 01/04/17 at 13:30 Famotidine (Pepcid) 20 mg BID PO Last administered on 01/12/17 08:24; Admin Dose 20 MG; Start 01/05/17 at 09:00 Polyethylene Glycol (Miralax) 17 gm DAILY PRN PO CONSTIPATION Last administered on 01/08/17 08:31; Admin Dose 17 GM; Start 01/07/17 at 10:00 Docusate Sodium (Colace) 100 mg BID PO Last administered on 01/12/17 08:24; Admin Dose 100 MG; Start 01/07/17 at 10:00 Methadone HCl (Methadone Liq) 5 mg Q8 PO Last administered on 01/10/17 20:10; Admin Dose 5 MG; Start 01/08/17 at 14:00 Hydromorphone HCl (Dilaudid) 2 mg Q2H PRN IV PAIN Last administered on 17:43; Admin Dose 2 MG; Start 01/08/17 at 11:30 Prochlorperazine (Compazine) 10 mg TID PO Last administered on 01/12/17 13:33 ; Admin Dose 10 MG; Start 01/09/17 at 15:00 VAMSI SAMAYOA MD Jan 12, 2017 15:09
[2017-01-12] MEDS: POLYETHYLENE GLYCOL 17 GM PACKET PO PRN (17:12)
[2017-01-12 19:15] VITALS: BP 149/84; RESP 18
[2017-01-13 05:14] LABS: ADD SCAN DIFF NO
[2017-01-13 05:17] LABS: ABNORMAL IP MESSAGE 1; EOSINOPHILS % 0.5 % (0.0-7.0); HEMATOCRIT 23.6 % (37.0-47.0); HEMOGLOBIN 7.7 g/dl (12.0-16.0); LYMPHOCYTES # 0.2 10^3/ul (0.8-2.9); LYMPHOCYTES % 10.8 % (15.0-51.0); MEAN CORPUSCULAR HEMOGLOBIN 28.7 pg (29.0-33.0); MEAN CORPUSCULAR HGB CONC 32.6 g/dl (32.0-37.0); MEAN CORPUSCULAR VOLUME 88.1 fl (82.0-101.0); MEAN PLATELET VOLUME 9.9 fl (7.4-10.4); MONOCYTE # 0.2 10^3/ul (0.3-0.9); MONOCYTES % 12.3 % (0.0-11.0); NEUTROPHIL # 1.5 10^3/ul (1.6-7.5); NEUTROPHILS % 75.9 % (39.0-77.0); PLATELET COUNT 167 10^3/UL (140-415); RED BLOOD COUNT 2.68 10^6/ul (4.20-5.40); RED CELL DISTRIBUTION WIDTH 16.3 % (11.5-14.5)
[2017-01-13 05:34] LABS: CALCIUM 8.2 mg/dl (8.4-10.2); CREATININE 0.72 mg/dl (0.44-1.00); POTASSIUM 3.8 mmol/L (3.5-5.1)
[2017-01-13] MEDS: METHADONE (1 MG/ML 5 ML PO UD SYG) PO SCH ×3 (06:00→20:45)
[2017-01-13 08:19] VITALS: BP 132/82; RESP 16
[2017-01-13] MEDS: PROCHLORPERAZINE 10 MG TAB PO SCH ×3 (09:09→20:41)
[2017-01-13] MEDS: FAMOTIDINE 20 MG TAB PO SCH ×2 (09:09→20:41)
[2017-01-13] MEDS: DOCUSATE SODIUM 100 MG CAP PO SCH ×2 (09:09→20:41)
[2017-01-13] MEDS: ENOXAPARIN 40 MG/0.4 ML SYG SC SCH (09:10)
--- NOTE | 2017-01-13 11:06 | PN ---
Date/Time of Note Date/Time of Note DATE: 01/13/17 TIME: 11:03 Assessment/Plan VTE Prophylaxis VTE Prophylaxis Intervention: other Lines/Catheters Urinary Cath still in place: No Assessment/Plan Assessment/Plan Assessment/Plan 56yo female with metastatic uterine carcinosarcoma sarcoma now admitted for cycle 4 of ifex/ taxol, however now presenting with worsening abdominal pain and CT scan consistent with progression of disease. Incidentally found to have Hyponatremia which is worsening during this hospital stay. Likely hyponatremia in the setting of elevated ADH, Euvolemic F/u Urine studies Fluid restriction at this time Will cont to monitor closely No acute indication for Hypertonic saline at this time. [id number] na better [id number] na stable Exam/Review of Systems Vital Signs Vitals Vital Signs Date Time Temp Pulse Resp B/P Pulse Ox O2 Delivery O2 Flow Rate FiO2 01/13/17 08:19 98.3 102 16 132/82 96 Intake and Output 01/12/17 01/12/17 01/13/17 15:00 23:00 07:00 Intake Total 850 ml 560 ml Output Total 900 ml 500 ml Balance -50 ml 60 ml Exam ENMT: nl external ears & nose Neck: supple Respiratory: clear to auscultation, normal air movement Cardiovascular: nl pulses, regular rate and rhythm Gastrointestinal: nl liver, spleen, soft Results Result Diagram: 01/13/17 0434 01/13/17 0434 Results 24 hrs Laboratory Tests Test 01/13/17 04:34 White Blood Count 2.0 L Red Blood Count 2.68 L Hemoglobin 7.7 L Hematocrit 23.6 L Mean Corpuscular Volume 88.1 Mean Corpuscular Hemoglobin 28.7 L Mean Corpuscular Hemoglobin Concent 32.6 Red Cell Distribution Width 16.3 H Platelet Count 167 Mean Platelet Volume 9.9 Neutrophils % 75.9 Lymphocytes % 10.8 L Monocytes % 12.3 H Eosinophils % 0.5 Basophils % 0.0 Nucleated Red Blood Cells % 0.0 Neutrophils # 1.5 L Lymphocytes # 0.2 L Monocytes # 0.2 L Eosinophils # 0.0 Basophils # 0.0 Nucleated Red Blood Cells # 0.0 Sodium Level 140 Potassium Level 3.8 Chloride Level 102 Carbon Dioxide Level 30 Anion Gap 12 Blood Urea Nitrogen 9 Creatinine 0.72 Glucose Level 89 Calcium Level 8.2 L Medications Medications Current Medications Ondansetron HCl (Zofran Inj) 4 mg Q6H PRN IV NAUSEA AND/OR VOMITING Last administered on 01/09/17 13:57; Admin Dose 4 MG; Start 01/03/17 at 12:00 Enoxaparin Sodium (Lovenox) 40 mg DAILY SC Last administered on 01/13/17 09:10 ; Admin Dose 40 MG; Start 01/04/17 at 09:00 Zolpidem Tartrate (Ambien) 5 mg HS PRN PO INSOMNIA; Start 01/03/17 at 12:00 Ondansetron HCl (Zofran Tab) 8 mg Q8H PRN PO NAUSEA AND/OR VOMITING; Start 01/04 at 09:30 Metoclopramide HCl (Reglan) 10 mg Q8H PRN PO NAUSEA AND/OR VOMITING Last administered on 01/09/17 18:00; Admin Dose 10 MG; Start 01/04/17 at 09:30 Hydrocortisone (Solu-Cortef) 100 mg PRN PRN IV X 1 FOR RXN TO CHEMO; Start 01/04 at 09:30 Diphenhydramine HCl (Benadryl) 50 mg PRN PRN IV RXN TO CHEMO, X 1 DOSE; Start 01/04/17 at 09:30 Methylnaltrexone [place] (Relistor) 12 mg Q48H SC Last administered on 13:34; Admin Dose 12 MG; Start 01/04/17 at 13:30 Famotidine (Pepcid) 20 mg BID PO Last administered on 01/13/17 09:09; Admin Dose 20 MG; Start 01/05/17 at 09:00 Polyethylene Glycol (Miralax) 17 gm DAILY PRN PO CONSTIPATION Last administered on 01/12/17 17:12; Admin Dose 17 GM; Start 01/07/17 at 10:00 Docusate Sodium (Colace) 100 mg BID PO Last administered on 01/13/17 09:09; Admin Dose 100 MG; Start 01/07/17 at 10:00 Methadone HCl (Methadone Liq) 5 mg Q8 PO Last administered on 01/10/17 20:10; Admin Dose 5 MG; Start 01/08/17 at 14:00 Hydromorphone HCl (Dilaudid) 2 mg Q2H PRN IV PAIN Last administered on 17:43; Admin Dose 2 MG; Start 01/08/17 at 11:30 Prochlorperazine (Compazine) 10 mg TID PO Last administered on 01/13/17 09:09 ; Admin Dose 10 MG; Start 01/09/17 at 15:00 DAVIS KAN MD Jan 13, 2017 11:05
--- NOTE | 2017-01-13 14:10 | PN ---
Date/Time of Note Date/Time of Note DATE: 01/13/17 TIME: 14:05 Assessment/Plan Lines/Catheters IV Catheter Type (from [facility]): PORTACATH Urinary Cath still in place: No Assessment/Plan Assessment/Plan -Anemia- per hematology - Hyponatremia, Dr. Solorio is following in nephrology consultation - Metastatic uterine carcinosarcoma, admitted for cycle 4 of ifex/ taxol, however now presenting with worsening abdominal pain and CT scan consistent with progression of disease. S/p carbo/taxol on 01/04. Dr. Hoang is following in oncology consultation. Dr. Doyle is following in pain management consultation. - Status post total abdominal hysterectomy and bilateral salpingo-oophorectomy and rectosigmoid anastomosis in September [address] Bueno. - Gastritis by history, continue Pepcid. - Constipation, continue Relistor, Colace. Further recommendations based on clinical course. Plan of care discussed with Dr. Richardson. Subjective 24 Hr Interval Summary Free Text/Dictation nad, having her lunch, denies any complaints. dw staff Constitutional: improved Cardiovascular: no complaints Gastrointestinal: no complaints Genitourinary: no complaints Exam/Review of Systems Vital Signs Vitals Vital Signs Date Time Temp Pulse Resp B/P Pulse Ox O2 Delivery O2 Flow Rate FiO2 01/13/17 08:19 98.3 102 16 132/82 96 Intake and Output 01/12/17 01/12/17 01/13/17 15:00 23:00 07:00 Intake Total 850 ml 560 ml Output Total 900 ml 500 ml Balance -50 ml 60 ml Exam Constitutional: alert, well developed Respiratory: clear to auscultation Cardiovascular: nl pulses, regular rate and rhythm Gastrointestinal: non-tender, soft Extremities: normal pulses Results Result Diagram: 01/13/17 0434 01/13/17 0434 Results 24 hrs Laboratory Tests Test 01/13/17 04:34 White Blood Count 2.0 L Red Blood Count 2.68 L Hemoglobin 7.7 L Hematocrit 23.6 L Mean Corpuscular Volume 88.1 Mean Corpuscular Hemoglobin 28.7 L Mean Corpuscular Hemoglobin Concent 32.6 Red Cell Distribution Width 16.3 H Platelet Count 167 Mean Platelet Volume 9.9 Neutrophils % 75.9 Lymphocytes % 10.8 L Monocytes % 12.3 H Eosinophils % 0.5 Basophils % 0.0 Nucleated Red Blood Cells % 0.0 Neutrophils # 1.5 L Lymphocytes # 0.2 L Monocytes # 0.2 L Eosinophils # 0.0 Basophils # 0.0 Nucleated Red Blood Cells # 0.0 Sodium Level 140 Potassium Level 3.8 Chloride Level 102 Carbon Dioxide Level 30 Anion Gap 12 Blood Urea Nitrogen 9 Creatinine 0.72 Glucose Level 89 Calcium Level 8.2 L Medications Medications Current Medications Ondansetron HCl (Zofran Inj) 4 mg Q6H PRN IV NAUSEA AND/OR VOMITING Last administered on 01/09/17 13:57; Admin Dose 4 MG; Start 01/03/17 at 12:00 Enoxaparin Sodium (Lovenox) 40 mg DAILY SC Last administered on 01/13/17 09:10 ; Admin Dose 40 MG; Start 01/04/17 at 09:00 Zolpidem Tartrate (Ambien) 5 mg HS PRN PO INSOMNIA; Start 01/03/17 at 12:00 Ondansetron HCl (Zofran Tab) 8 mg Q8H PRN PO NAUSEA AND/OR VOMITING; Start 01/04 at 09:30 Metoclopramide HCl (Reglan) 10 mg Q8H PRN PO NAUSEA AND/OR VOMITING Last administered on 01/09/17 18:00; Admin Dose 10 MG; Start 01/04/17 at 09:30 Hydrocortisone (Solu-Cortef) 100 mg PRN PRN IV X 1 FOR RXN TO CHEMO; Start 01/04 at 09:30 Diphenhydramine HCl (Benadryl) 50 mg PRN PRN IV RXN TO CHEMO, X 1 DOSE; Start 01/04/17 at 09:30 Methylnaltrexone [place] (Relistor) 12 mg Q48H SC Last administered on 13:34; Admin Dose 12 MG; Start 01/04/17 at 13:30 Famotidine (Pepcid) 20 mg BID PO Last administered on 01/13/17 09:09; Admin Dose 20 MG; Start 01/05/17 at 09:00 Polyethylene Glycol (Miralax) 17 gm DAILY PRN PO CONSTIPATION Last administered on 01/12/17 17:12; Admin Dose 17 GM; Start 01/07/17 at 10:00 Docusate Sodium (Colace) 100 mg BID PO Last administered on 01/13/17 09:09; Admin Dose 100 MG; Start 01/07/17 at 10:00 Methadone HCl (Methadone Liq) 5 mg Q8 PO Last administered on 01/10/17 20:10; Admin Dose 5 MG; Start 01/08/17 at 14:00 Hydromorphone HCl (Dilaudid) 2 mg Q2H PRN IV PAIN Last administered on 17:43; Admin Dose 2 MG; Start 01/08/17 at 11:30 Prochlorperazine (Compazine) 10 mg TID PO Last administered on 01/13/17 09:09 ; Admin Dose 10 MG; Start 01/09/17 at 15:00 LATRICIA GABRIEL Jan 13, 2017 14:09
[2017-01-13 15:59] LABS: CALCIUM 8.3 mg/dl (8.4-10.2); CREATININE 0.61 mg/dl (0.44-1.00); POTASSIUM 3.5 mmol/L (3.5-5.1)
[2017-01-13 20:41] VITALS: BP 125/72; RESP 16
[2017-01-13 20:50] VITALS: PULSE 102
[2017-01-14] MEDS: METHADONE (1 MG/ML 5 ML PO UD SYG) PO SCH ×3 (04:56→21:46)
[2017-01-14 05:20] LABS: ADD SCAN DIFF NO
[2017-01-14 05:29] LABS: ABNORMAL IP MESSAGE 1; HEMATOCRIT 24.4 % (37.0-47.0); MEAN CORPUSCULAR HGB CONC 32.8 g/dl (32.0-37.0); MEAN CORPUSCULAR VOLUME 88.4 fl (82.0-101.0); PLATELET COUNT 161 10^3/UL (140-415); RED BLOOD COUNT 2.76 10^6/ul (4.20-5.40); RED CELL DISTRIBUTION WIDTH 16.3 % (11.5-14.5); WHITE BLOOD COUNT 1.5 10^3/ul (4.8-10.8)
[2017-01-14 08:09] VITALS: BP 129/77; RESP 20
[2017-01-14] MEDS: PROCHLORPERAZINE 10 MG TAB PO SCH ×3 (10:07→20:54)
[2017-01-14] MEDS: DOCUSATE SODIUM 100 MG CAP PO SCH ×2 (10:07→20:54)
[2017-01-14] MEDS: FAMOTIDINE 20 MG TAB PO SCH ×2 (10:07→20:54)
[2017-01-14] MEDS: ENOXAPARIN 40 MG/0.4 ML SYG SC SCH (10:09)
[2017-01-14 10:16] LABS: LYMPHOCYTES # 0.2 10^3/ul (0.8-2.9); MONOCYTE # 0.2 10^3/ul (0.3-0.9); NEUTROPHIL # 1.2 10^3/ul (1.6-7.5)
[2017-01-14] MEDS: METHYLNALTREXONE 12 MG/0.6 ML VIAL SC SCH (13:30)
--- NOTE | 2017-01-14 14:10 | CONS ---
Date/Time of Note Date/Time of Note DATE: 01/14/17 TIME: 14:07 Assessment/Plan Assessment/Plan Chief Complaint/Hosp Course 56yo female with metastatic uterine carcinosarcoma sarcoma now admitted for cycle 4 of ifex/ taxol, with worsening abdominal pain and CT scan consistent with progression of disease. - CT scan shows increased abdominopelvic lymphadenopathy and peritoneal carcinomatosis, for instance right cardiophrenic LN increased from 1.4 to 1.8, anterior aortocaval lymph node unchanged, posterior aortocaval lymph node increased from 1.2 to 1.6cm, right iliac chain sonny mass now 6.9 x 3.6 cm, previously 6.1 x 3.3 cm, and RP LAD more confluent, with extensive presacral thickening and numerous enhancing confluent nodules throughout the peritoneum and increased since prior. Trace ascites. - Plan was for a total of 4 cycles of ifosfamide/taxol followd by 4 cycles of carbo/taxol per discussion with Dr. Bueno. Given worsening abdominal pain and scan consistent with progression of disease, carbo/taxol was started on . - continue pain control recommendations per Dr. Patino. Per Dr. Patino, methadone and prn meds increased. Patient clinically doing better. continue supportive care. Ok to discharge home from hematology perspective. - Transfuse if Hgb < 7-8 - Monitor ANC, patient approaching dax count 7-10 days after chemotherapy, no need for antibiotics unless patient develops neutropenic fever Problems: Consultation Date/Type/Reason Admit Date/Time Jan 03, 2017 at 10:17 Initial Consult Date 01/03/17 Type of Consultation: Oncology Referring Provider: ARLENE CHOWDARY MD 24 HR Interval Summary Free Text/Dictation Patient doing well, no pain or nausea, improved appetite. Exam/Review of Systems Vital Signs Vitals Vital Signs Date Time Temp Pulse Resp B/P Pulse Ox O2 Delivery O2 Flow Rate FiO2 01/14/17 08:09 97.9 94 20 129/77 96 Intake and Output 01/13/17 01/13/17 01/14/17 15:00 23:00 07:00 Intake Total 700 ml 400 ml Balance 700 ml 400 ml Exam Constitutional: alert, oriented Psych: nl mood/affect Eyes: nl conjunctiva Neck: supple Respiratory: normal air movement Results Result Diagram: 01/14/17 0427 01/13/17 1530 Results 24 hrs Laboratory Tests Test 01/13/17 15:30 01/14/17 04:27 Sodium Level 141 Potassium Level 3.5 Chloride Level 100 Carbon Dioxide Level 30 Anion Gap 15 Blood Urea Nitrogen 9 Creatinine 0.61 Glucose Level 139 # Calcium Level 8.3 L White Blood Count 1.5 #L Red Blood Count 2.76 L Hemoglobin 8.0 L Hematocrit 24.4 L Mean Corpuscular Volume 88.4 Mean Corpuscular Hemoglobin 29.0 Mean Corpuscular Hemoglobin Concent 32.8 Red Cell Distribution Width 16.3 H Platelet Count 161 Mean Platelet Volume 10.0 Neutrophils % 80.0 H Lymphocytes % 10.0 L Monocytes % 10.0 Neutrophils # 1.2 L Lymphocytes # 0.2 L Monocytes # 0.2 L Medications Medications Current Medications Ondansetron HCl (Zofran Inj) 4 mg Q6H PRN IV NAUSEA AND/OR VOMITING Last administered on 01/09/17 13:57; Admin Dose 4 MG; Start 01/03/17 at 12:00 Enoxaparin Sodium (Lovenox) 40 mg DAILY SC Last administered on 01/14/17 10:09 ; Admin Dose 40 MG; Start 01/04/17 at 09:00 Zolpidem Tartrate (Ambien) 5 mg HS PRN PO INSOMNIA; Start 01/03/17 at 12:00 Ondansetron HCl (Zofran Tab) 8 mg Q8H PRN PO NAUSEA AND/OR VOMITING; Start 01/04 at 09:30 Metoclopramide HCl (Reglan) 10 mg Q8H PRN PO NAUSEA AND/OR VOMITING Last administered on 01/09/17 18:00; Admin Dose 10 MG; Start 01/04/17 at 09:30 Hydrocortisone (Solu-Cortef) 100 mg PRN PRN IV X 1 FOR RXN TO CHEMO; Start 01/04 at 09:30 Diphenhydramine HCl (Benadryl) 50 mg PRN PRN IV RXN TO CHEMO, X 1 DOSE; Start 01/04/17 at 09:30 Methylnaltrexone [place] (Relistor) 12 mg Q48H SC Last administered on 13:34; Admin Dose 12 MG; Start 01/04/17 at 13:30 Famotidine (Pepcid) 20 mg BID PO Last administered on 01/14/17 10:07; Admin Dose 20 MG; Start 01/05/17 at 09:00 Polyethylene Glycol (Miralax) 17 gm DAILY PRN PO CONSTIPATION Last administered on 01/12/17 17:12; Admin Dose 17 GM; Start 01/07/17 at 10:00 Docusate Sodium (Colace) 100 mg BID PO Last administered on 01/14/17 10:07; Admin Dose 100 MG; Start 01/07/17 at 10:00 Methadone HCl (Methadone Liq) 5 mg Q8 PO Last administered on 01/10/17 20:10; Admin Dose 5 MG; Start 01/08/17 at 14:00 Hydromorphone HCl (Dilaudid) 2 mg Q2H PRN IV PAIN Last administered on 17:43; Admin Dose 2 MG; Start 01/08/17 at 11:30 Prochlorperazine (Compazine) 10 mg TID PO Last administered on 01/14/17 10:07 ; Admin Dose 10 MG; Start 01/09/17 at 15:00 LINDA SWANSON MD Jan 14, 2017 14:10
--- NOTE | 2017-01-14 18:16 | PN ---
Date/Time of Note Date/Time of Note DATE: 01/14/17 TIME: 18:15 Assessment/Plan VTE Prophylaxis VTE Prophylaxis Intervention: SCD's Lines/Catheters IV C[facility] Type [facility]from [facility] portacath Urinary Cath still in place: No Assessment/Plan Chief Complaint/Hosp Course Renal function improved with IV fluids, patient's pain is well controlled, mild nausea and poor appetite, denies any emesis. Assessment/Plan - Hyponatremia, Dr. Solorio is following in nephrology consultation - Metastatic uterine carcinosarcoma, admitted for cycle 4 of ifex/ taxol, however now presenting with worsening abdominal pain and CT scan consistent with progression of disease. S/p carbo/taxol on 01/04. Dr. Hoang is following in oncology consultation. Dr. Doyle is following in pain management consultation. - Status post total abdominal hysterectomy and bilateral salpingo-oophorectomy and rectosigmoid anastomosis in September [address] Bueno. - Gastritis by history, continue Pepcid. - Constipation, continue Relistor, Colace. Further recommendations based on clinical course. Plan of care discussed with Dr. Richardson. Problems: Exam/Review of Systems Vital Signs Vitals Vital Signs Date Time Temp Pulse Resp B/P Pulse Ox O2 Delivery O2 Flow Rate FiO2 01/14/17 08:09 97.9 94 20 129/77 96 Intake and Output 01/13/17 01/13/17 01/14/17 15:00 23:00 07:00 Intake Total 700 ml 400 ml Balance 700 ml 400 ml Exam Constitutional: alert, oriented Head: atraumatic, normocephalic Neck: supple Respiratory: normal air movement Cardiovascular: nl pulses Gastrointestinal: non-tender, other (mild epigastric tenderness), soft Musculoskeletal: nl gait and stance Extremities: normal pulses Neurological: nl mental status Results Result Diagram: 01/14/17 0427 01/13/17 1530 Results 24 hrs Laboratory Tests Test 01/14/17 04:27 White Blood Count 1.5 #L Red Blood Count 2.76 L Hemoglobin 8.0 L Hematocrit 24.4 L Mean Corpuscular Volume 88.4 Mean Corpuscular Hemoglobin 29.0 Mean Corpuscular Hemoglobin Concent 32.8 Red Cell Distribution Width 16.3 H Platelet Count 161 Mean Platelet Volume 10.0 Neutrophils % 80.0 H Lymphocytes % 10.0 L Monocytes % 10.0 Neutrophils # 1.2 L Lymphocytes # 0.2 L Monocytes # 0.2 L Medications Medications Current Medications Ondansetron HCl (Zofran Inj) 4 mg Q6H PRN IV NAUSEA AND/OR VOMITING Last administered on 01/09/17 13:57; Admin Dose 4 MG; Start 01/03/17 at 12:00 Enoxaparin Sodium (Lovenox) 40 mg DAILY SC Last administered on 01/14/17 10:09 ; Admin Dose 40 MG; Start 01/04/17 at 09:00 Zolpidem Tartrate (Ambien) 5 mg HS PRN PO INSOMNIA; Start 01/03/17 at 12:00 Ondansetron HCl (Zofran Tab) 8 mg Q8H PRN PO NAUSEA AND/OR VOMITING; Start 01/04 at 09:30 Metoclopramide HCl (Reglan) 10 mg Q8H PRN PO NAUSEA AND/OR VOMITING Last administered on 01/09/17 18:00; Admin Dose 10 MG; Start 01/04/17 at 09:30 Hydrocortisone (Solu-Cortef) 100 mg PRN PRN IV X 1 FOR RXN TO CHEMO; Start 01/04 at 09:30 Diphenhydramine HCl (Benadryl) 50 mg PRN PRN IV RXN TO CHEMO, X 1 DOSE; Start 01/04/17 at 09:30 Methylnaltrexone [place] (Relistor) 12 mg Q48H SC Last administered on 13:34; Admin Dose 12 MG; Start 01/04/17 at 13:30 Famotidine (Pepcid) 20 mg BID PO Last administered on 01/14/17 10:07; Admin Dose 20 MG; Start 01/05/17 at 09:00 Polyethylene Glycol (Miralax) 17 gm DAILY PRN PO CONSTIPATION Last administered on 01/12/17 17:12; Admin Dose 17 GM; Start 01/07/17 at 10:00 Docusate Sodium (Colace) 100 mg BID PO Last administered on 01/14/17 10:07; Admin Dose 100 MG; Start 01/07/17 at 10:00 Methadone HCl (Methadone Liq) 5 mg Q8 PO Last administered on 01/10/17 20:10; Admin Dose 5 MG; Start 01/08/17 at 14:00 Hydromorphone HCl (Dilaudid) 2 mg Q2H PRN IV PAIN Last administered on 17:43; Admin Dose 2 MG; Start 01/08/17 at 11:30 Prochlorperazine (Compazine) 10 mg TID PO Last administered on 01/14/17 10:07 ; Admin Dose 10 MG; Start 01/09/17 at 15:00 ELVIN TEIXEIRA Jan 14, 2017 18:15
[2017-01-14 19:10] VITALS: BP 129/76; RESP 18
--- NOTE | 2017-01-14 22:46 | CONS ---
Date/Time of Note Date/Time of Note DATE: 01/14/17 TIME: 22:43 Assessment/Plan Assessment/Plan Chief Complaint/Hosp Course Good urine output Problems: Additional Assessment/Plan Renal function is in normal range, will dc further renal f/u Consultation Date/Type/Reason Admit Date/Time Jan 03, 2017 at 10:17 Initial Consult Date 01/10/17 Type of Consultation: renal Referring Provider: ARLENE CHOWDARY MD 24 HR Interval Summary Free Text/Dictation cHART REVIEWED & PT EXAMINED Exam/Review of Systems Vital Signs Vitals Vital Signs Date Time Temp Pulse Resp B/P Pulse Ox O2 Delivery O2 Flow Rate FiO2 01/14/17 19:10 98.7 97 18 129/76 97 Intake and Output 01/13/17 01/13/17 01/14/17 15:00 23:00 07:00 Intake Total 700 ml 400 ml Balance 700 ml 400 ml Exam Constitutional: alert, oriented, well developed Psych: nl mood/affect, no complaints Head: atraumatic, normocephalic Eyes: other (Hair Loss) ENMT: nl external ears & nose, nl lips & teeth, nl nasal mucosa & septum Neck: non-tender, supple Respiratory: clear to auscultation, normal air movement Cardiovascular: nl pulses, regular rate and rhythm Gastrointestinal: nl liver, spleen, non-tender, soft Musculoskeletal: nl extremities to inspection, nl gait and stance Extremities: normal pulses Neurological: LEAD C DEVELOPER II-XII intact, nl mental status, nl speech, nl strength Skin: nl turgor, other (PALE, LOSS OF HAIR ON SCALP NOTED), No rash or lesions Lymph: nl lymph nodes Additional Comments CT abdomen shows no Tract Obstruction Results Result Diagram: 01/14/17 0427 01/13/17 1530 Results 24 hrs Laboratory Tests Test 01/14/17 04:27 White Blood Count 1.5 #L Red Blood Count 2.76 L Hemoglobin 8.0 L Hematocrit 24.4 L Mean Corpuscular Volume 88.4 Mean Corpuscular Hemoglobin 29.0 Mean Corpuscular Hemoglobin Concent 32.8 Red Cell Distribution Width 16.3 H Platelet Count 161 Mean Platelet Volume 10.0 Neutrophils % 80.0 H Lymphocytes % 10.0 L Monocytes % 10.0 Neutrophils # 1.2 L Lymphocytes # 0.2 L Monocytes # 0.2 L Medications Medications Current Medications Ondansetron HCl (Zofran Inj) 4 mg Q6H PRN IV NAUSEA AND/OR VOMITING Last administered on 01/09/17 13:57; Admin Dose 4 MG; Start 01/03/17 at 12:00 Enoxaparin Sodium (Lovenox) 40 mg DAILY SC Last administered on 01/14/17 10:09 ; Admin Dose 40 MG; Start 01/04/17 at 09:00 Zolpidem Tartrate (Ambien) 5 mg HS PRN PO INSOMNIA; Start 01/03/17 at 12:00 Ondansetron HCl (Zofran Tab) 8 mg Q8H PRN PO NAUSEA AND/OR VOMITING; Start 01/04 at 09:30 Metoclopramide HCl (Reglan) 10 mg Q8H PRN PO NAUSEA AND/OR VOMITING Last administered on 01/09/17 18:00; Admin Dose 10 MG; Start 01/04/17 at 09:30 Hydrocortisone (Solu-Cortef) 100 mg PRN PRN IV X 1 FOR RXN TO CHEMO; Start 01/04 at 09:30 Diphenhydramine HCl (Benadryl) 50 mg PRN PRN IV RXN TO CHEMO, X 1 DOSE; Start 01/04/17 at 09:30 Methylnaltrexone [place] (Relistor) 12 mg Q48H SC Last administered on 13:34; Admin Dose 12 MG; Start 01/04/17 at 13:30 Famotidine (Pepcid) 20 mg BID PO Last administered on 01/14/17 20:54; Admin Dose 20 MG; Start 01/05/17 at 09:00 Polyethylene Glycol (Miralax) 17 gm DAILY PRN PO CONSTIPATION Last administered on 01/12/17 17:12; Admin Dose 17 GM; Start 01/07/17 at 10:00 Docusate Sodium (Colace) 100 mg BID PO Last administered on 01/14/17 20:54; Admin Dose 100 MG; Start 01/07/17 at 10:00 Methadone HCl (Methadone Liq) 5 mg Q8 PO Last administered on 01/10/17 20:10; Admin Dose 5 MG; Start 01/08/17 at 14:00 Hydromorphone HCl (Dilaudid) 2 mg Q2H PRN IV PAIN Last administered on 17:43; Admin Dose 2 MG; Start 01/08/17 at 11:30 Prochlorperazine (Compazine) 10 mg TID PO Last administered on 01/14/17 20:54 ; Admin Dose 10 MG; Start 01/09/17 at 15:00 TOVA GLEASON MD Jan 14, 2017 22:45
[2017-01-15 02:00] VITALS: BP 135/79; PULSE 90; RESP 20
[2017-01-15 04:50] LABS: ADD SCAN DIFF NO
[2017-01-15 04:55] LABS: ABNORMAL IP MESSAGE 1; HEMATOCRIT 22.6 % (37.0-47.0); HEMOGLOBIN 7.1 g/dl (12.0-16.0); MEAN CORPUSCULAR HEMOGLOBIN 27.5 pg (29.0-33.0); MEAN CORPUSCULAR HGB CONC 31.4 g/dl (32.0-37.0); MEAN CORPUSCULAR VOLUME 87.6 fl (82.0-101.0); MEAN PLATELET VOLUME 9.3 fl (7.4-10.4); PLATELET COUNT 142 10^3/UL (140-415); RED BLOOD COUNT 2.58 10^6/ul (4.20-5.40); RED CELL DISTRIBUTION WIDTH 16.2 % (11.5-14.5); WHITE BLOOD COUNT 1.1 10^3/ul (4.8-10.8)
[2017-01-15 05:22] LABS: CALCIUM 8.6 mg/dl (8.4-10.2); CREATININE 0.51 mg/dl (0.44-1.00); POTASSIUM 3.3 mmol/L (3.5-5.1)
[2017-01-15] MEDS: METHADONE (1 MG/ML 5 ML PO UD SYG) PO SCH ×3 (05:49→20:54)
[2017-01-15 07:00] VITALS: BP 127/73; RESP 20
[2017-01-15 09:01] LABS: LYMPHOCYTES # 0.2 10^3/ul (0.8-2.9); MONOCYTE # 0.1 10^3/ul (0.3-0.9); NEUTROPHIL # 0.7 10^3/ul (1.6-7.5)
--- NOTE | 2017-01-15 09:30 | CONS ---
Date/Time of Note Date/Time of Note DATE: 01/15/17 TIME: 09:29 Assessment/Plan Assessment/Plan Chief Complaint/Hosp Course 56yo female with metastatic uterine carcinosarcoma sarcoma now admitted for cycle 4 of ifex/ taxol, with worsening abdominal pain and CT scan consistent with progression of disease. - CT scan shows increased abdominopelvic lymphadenopathy and peritoneal carcinomatosis, for instance right cardiophrenic LN increased from 1.4 to 1.8, anterior aortocaval lymph node unchanged, posterior aortocaval lymph node increased from 1.2 to 1.6cm, right iliac chain sonny mass now 6.9 x 3.6 cm, previously 6.1 x 3.3 cm, and RP LAD more confluent, with extensive presacral thickening and numerous enhancing confluent nodules throughout the peritoneum and increased since prior. Trace ascites. - Plan was for a total of 4 cycles of ifosfamide/taxol followd by 4 cycles of carbo/taxol per discussion with Dr. Bueno. Given worsening abdominal pain and scan consistent with progression of disease, carbo/taxol was started on . - continue pain control recommendations per Dr. Patino. Per Dr. Patino, methadone and prn meds increased. Patient clinically doing better. continue supportive care. - Transfuse if Hgb < 7-8. Will give 2 units pRBCs today for Hgb 7.1. If counts stable tomorrow, ok to discharge home. - Monitor ANC, patient approaching dax count 7-10 days after chemotherapy, no need for antibiotics unless patient develops neutropenic fever Problems: Consultation Date/Type/Reason Admit Date/Time Jan 03, 2017 at 10:17 Initial Consult Date 01/03/17 Type of Consultation: Oncology Referring Provider: ARLENE CHOWDARY MD 24 HR Interval Summary Free Text/Dictation Patient doing well, denies pain or nausea at this time. Exam/Review of Systems Vital Signs Vitals Vital Signs Date Time Temp Pulse Resp B/P Pulse Ox O2 Delivery O2 Flow Rate FiO2 01/15/17 07:00 98.5 87 20 127/73 97 01/15/17 02:00 Room Air Intake and Output 01/14/17 01/14/17 01/15/17 15:00 23:00 07:00 Intake Total 700 ml 400 ml Balance 700 ml 400 ml Exam Constitutional: alert, oriented Psych: nl mood/affect Eyes: nl conjunctiva Neck: supple Respiratory: normal air movement Results Result Diagram: 01/15/177 01/15/17 0437 Results 24 hrs Laboratory Tests Test 01/15/17 04:37 White Blood Count 1.1 #L Red Blood Count 2.58 L Hemoglobin 7.1 L Hematocrit 22.6 L Mean Corpuscular Volume 87.6 Mean Corpuscular Hemoglobin 27.5 L Mean Corpuscular Hemoglobin Concent 31.4 L Red Cell Distribution Width 16.2 H Platelet Count 142 Mean Platelet Volume 9.3 Neutrophils % 65.0 Band Neutrophils % 1.0 Lymphocytes % 21.0 Monocytes % 10.0 Basophils % 3.0 H Neutrophils # 0.7 L Lymphocytes # 0.2 L Monocytes # 0.1 L Basophils # 0.0 Sodium Level 142 Potassium Level 3.3 L Chloride Level 100 Carbon Dioxide Level 33 H Anion Gap 12 Blood Urea Nitrogen 7 Creatinine 0.51 Glucose Level 86 # Calcium Level 8.6 Medications Medications Current Medications Ondansetron HCl (Zofran Inj) 4 mg Q6H PRN IV NAUSEA AND/OR VOMITING Last administered on 01/09/17 13:57; Admin Dose 4 MG; Start 01/03/17 at 12:00 Enoxaparin Sodium (Lovenox) 40 mg DAILY SC Last administered on 01/14/17 10:09 ; Admin Dose 40 MG; Start 01/04/17 at 09:00 Zolpidem Tartrate (Ambien) 5 mg HS PRN PO INSOMNIA; Start 01/03/17 at 12:00 Ondansetron HCl (Zofran Tab) 8 mg Q8H PRN PO NAUSEA AND/OR VOMITING; Start 01/04 at 09:30 Metoclopramide HCl (Reglan) 10 mg Q8H PRN PO NAUSEA AND/OR VOMITING Last administered on 01/09/17 18:00; Admin Dose 10 MG; Start 01/04/17 at 09:30 Hydrocortisone (Solu-Cortef) 100 mg PRN PRN IV X 1 FOR RXN TO CHEMO; Start 01/04 at 09:30 Diphenhydramine HCl (Benadryl) 50 mg PRN PRN IV RXN TO CHEMO, X 1 DOSE; Start 01/04/17 at 09:30 Methylnaltrexone [place] (Relistor) 12 mg Q48H SC Last administered on 13:34; Admin Dose 12 MG; Start 01/04/17 at 13:30 Famotidine (Pepcid) 20 mg BID PO Last administered on 01/14/17 20:54; Admin Dose 20 MG; Start 01/05/17 at 09:00 Polyethylene Glycol (Miralax) 17 gm DAILY PRN PO CONSTIPATION Last administered on 01/12/17 17:12; Admin Dose 17 GM; Start 01/07/17 at 10:00 Docusate Sodium (Colace) 100 mg BID PO Last administered on 01/14/17 20:54; Admin Dose 100 MG; Start 01/07/17 at 10:00 Methadone HCl (Methadone Liq) 5 mg Q8 PO Last administered on 01/10/17 20:10; Admin Dose 5 MG; Start 01/08/17 at 14:00 Hydromorphone HCl (Dilaudid) 2 mg Q2H PRN IV PAIN Last administered on 17:43; Admin Dose 2 MG; Start 01/08/17 at 11:30 Prochlorperazine (Compazine) 10 mg TID PO Last administered on 01/14/17 20:54 ; Admin Dose 10 MG; Start 01/09/17 at 15:00 LINDA SWANSON MD Jan 15, 2017 09:30
[2017-01-15] MEDS: FAMOTIDINE 20 MG TAB PO SCH ×2 (09:32→20:33)
[2017-01-15] MEDS: PROCHLORPERAZINE 10 MG TAB PO SCH ×3 (09:32→20:33)
[2017-01-15] MEDS: DOCUSATE SODIUM 100 MG CAP PO SCH ×2 (09:32→20:33)
[2017-01-15] MEDS: ENOXAPARIN 40 MG/0.4 ML SYG SC SCH (09:36)
--- NOTE | 2017-01-15 13:16 | CONS ---
Date/Time of Note Date/Time of Note DATE: 01/15/17 TIME: 13:16 Assessment/Plan Assessment/Plan Additional Assessment/Plan 56yo female with metastatic uterine carcinosarcoma sarcoma now admitted for cycle 4 of ifex/ taxol, however now presenting with worsening abdominal pain and CT scan consistent with progression of disease. Incidentally found to have Hyponatremia Likely hyponatremia in the setting of elevated ADH, Euvolemic Renal function ok Na now normal and stable Renal will sign off at this time Re consult as needed Consultation Date/Type/Reason Admit Date/Time Jan 03, 2017 at 10:17 Initial Consult Date 01/10/17 Type of Consultation: reNAL Referring Provider: ARLENE CHOWDARY MD 24 HR Interval Summary Free Text/Dictation No new complaints Exam/Review of Systems Vital Signs Vitals Vital Signs Date Time Temp Pulse Resp B/P Pulse Ox O2 Delivery O2 Flow Rate FiO2 01/15/17 07:00 98.5 87 20 127/73 97 01/15/17 02:00 Room Air Intake and Output 01/14/17 01/14/17 01/15/17 15:00 23:00 07:00 Intake Total 700 ml 400 ml Balance 700 ml 400 ml Exam Constitutional: No distress ENMT: mucosa pink and moist Neck: No jvd Respiratory: No diminished breath sounds, No labored breathing Cardiovascular: No edema Gastrointestinal: soft Neurological: No confused, No lethargic Results Result Diagram: 01/15/17 0437 01/15/17 0437 Results 24 hrs Laboratory Tests Test 01/15/17 04:37 White Blood Count 1.1 #L Red Blood Count 2.58 L Hemoglobin 7.1 L Hematocrit 22.6 L Mean Corpuscular Volume 87.6 Mean Corpuscular Hemoglobin 27.5 L Mean Corpuscular Hemoglobin Concent 31.4 L Red Cell Distribution Width 16.2 H Platelet Count 142 Mean Platelet Volume 9.3 Neutrophils % 65.0 Band Neutrophils % 1.0 Lymphocytes % 21.0 Monocytes % 10.0 Basophils % 3.0 H Neutrophils # 0.7 L Lymphocytes # 0.2 L Monocytes # 0.1 L Basophils # 0.0 Sodium Level 142 Potassium Level 3.3 L Chloride Level 100 Carbon Dioxide Level 33 H Anion Gap 12 Blood Urea Nitrogen 7 Creatinine 0.51 Glucose Level 86 # Calcium Level 8.6 Medications Medications Current Medications Ondansetron HCl (Zofran Inj) 4 mg Q6H PRN IV NAUSEA AND/OR VOMITING Last administered on 01/09/17 13:57; Admin Dose 4 MG; Start 01/03/17 at 12:00 Enoxaparin Sodium (Lovenox) 40 mg DAILY SC Last administered on 01/15/17 09:36 ; Admin Dose 40 MG; Start 01/04/17 at 09:00 Zolpidem Tartrate (Ambien) 5 mg HS PRN PO INSOMNIA; Start 01/03/17 at 12:00 Ondansetron HCl (Zofran Tab) 8 mg Q8H PRN PO NAUSEA AND/OR VOMITING; Start 01/04 at 09:30 Metoclopramide HCl (Reglan) 10 mg Q8H PRN PO NAUSEA AND/OR VOMITING Last administered on 01/09/17 18:00; Admin Dose 10 MG; Start 01/04/17 at 09:30 Hydrocortisone (Solu-Cortef) 100 mg PRN PRN IV X 1 FOR RXN TO CHEMO; Start 01/04 at 09:30 Diphenhydramine HCl (Benadryl) 50 mg PRN PRN IV RXN TO CHEMO, X 1 DOSE; Start 01/04/17 at 09:30 Methylnaltrexone [place] (Relistor) 12 mg Q48H SC Last administered on 13:34; Admin Dose 12 MG; Start 01/04/17 at 13:30 Famotidine (Pepcid) 20 mg BID PO Last administered on 01/15/17 09:32; Admin Dose 20 MG; Start 01/05/17 at 09:00 Polyethylene Glycol (Miralax) 17 gm DAILY PRN PO CONSTIPATION Last administered on 01/12/17 17:12; Admin Dose 17 GM; Start 01/07/17 at 10:00 Docusate Sodium (Colace) 100 mg BID PO Last administered on 01/15/17 09:32; Admin Dose 100 MG; Start 01/07/17 at 10:00 Methadone HCl (Methadone Liq) 5 mg Q8 PO Last administered on 01/10/17 20:10; Admin Dose 5 MG; Start 01/08/17 at 14:00 Hydromorphone HCl (Dilaudid) 2 mg Q2H PRN IV PAIN Last administered on 17:43; Admin Dose 2 MG; Start 01/08/17 at 11:30 Prochlorperazine (Compazine) 10 mg TID PO Last administered on 01/15/17 09:32 ; Admin Dose 10 MG; Start 01/09/17 at 15:00 SOLOMON SILVA MD Jan 15, 2017 13:16
--- NOTE | 2017-01-15 18:06 | PN ---
Date/Time of Note Date/Time of Note DATE: 01/15/17 TIME: 18:02 Assessment/Plan VTE Prophylaxis VTE Prophylaxis Intervention: SCD's Lines/Catheters IV [facility] [place] [facility] Urinary Cath still in place: No Assessment/Plan Chief Complaint/Hosp Course Patient is getting blood transfusion,no acte events, mild nausea,m denies emesis , minimal pain. Assessment/Plan - Hyponatremia, resolved. - Metastatic uterine carcinosarcoma, admitted for cycle 4 of ifex/ taxol, however now presenting with worsening abdominal pain and CT scan consistent with progression of disease. S/p carbo/taxol on 01/04. Dr. Hoang is following in oncology consultation. - Status post total abdominal hysterectomy and bilateral salpingo-oophorectomy and rectosigmoid anastomosis in September [address] Bueno. - Gastritis by history, continue Pepcid. - Constipation, resolved. Further recommendations based on clinical course. Plan of care discussed with Dr. Richardson. Problems: Exam/Review of Systems Vital Signs Vitals Vital Signs Date Time Temp Pulse Resp B/P Pulse Ox O2 Delivery O2 Flow Rate FiO2 01/15/17 07:00 98.5 87 20 127/73 97 01/15/17 02:00 Room Air Intake and Output 01/14/17 01/14/17 01/15/17 15:00 23:00 07:00 Intake Total 700 ml 400 ml Balance 700 ml 400 ml Exam Constitutional: alert, oriented Head: atraumatic, normocephalic Neck: supple Respiratory: normal air movement Cardiovascular: nl pulses Gastrointestinal: non-tender, other (mild epigastric tenderness), soft Musculoskeletal: nl gait and stance Extremities: normal pulses Neurological: nl mental status Results Result Diagram: 01/15/17 0437 01/15/17 0437 Results 24 hrs Laboratory Tests Test 01/15/17 04:37 White Blood Count 1.1 #L Red Blood Count 2.58 L Hemoglobin 7.1 L Hematocrit 22.6 L Mean Corpuscular Volume 87.6 Mean Corpuscular Hemoglobin 27.5 L Mean Corpuscular Hemoglobin Concent 31.4 L Red Cell Distribution Width 16.2 H Platelet Count 142 Mean Platelet Volume 9.3 Neutrophils % 65.0 Band Neutrophils % 1.0 Lymphocytes % 21.0 Monocytes % 10.0 Basophils % 3.0 H Neutrophils # 0.7 L Lymphocytes # 0.2 L Monocytes # 0.1 L Basophils # 0.0 Sodium Level 142 Potassium Level 3.3 L Chloride Level 100 Carbon Dioxide Level 33 H Anion Gap 12 Blood Urea Nitrogen 7 Creatinine 0.51 Glucose Level 86 # Calcium Level 8.6 Medications Medications Current Medications Ondansetron HCl (Zofran Inj) 4 mg Q6H PRN IV NAUSEA AND/OR VOMITING Last administered on 01/09/17 13:57; Admin Dose 4 MG; Start 01/03/17 at 12:00 Enoxaparin Sodium (Lovenox) 40 mg DAILY SC Last administered on 01/15/17 09:36 ; Admin Dose 40 MG; Start 01/04/17 at 09:00 Zolpidem Tartrate (Ambien) 5 mg HS PRN PO INSOMNIA; Start 01/03/17 at 12:00 Ondansetron HCl (Zofran Tab) 8 mg Q8H PRN PO NAUSEA AND/OR VOMITING; Start 01/04 at 09:30 Metoclopramide HCl (Reglan) 10 mg Q8H PRN PO NAUSEA AND/OR VOMITING Last administered on 01/09/17 18:00; Admin Dose 10 MG; Start 01/04/17 at 09:30 Hydrocortisone (Solu-Cortef) 100 mg PRN PRN IV X 1 FOR RXN TO CHEMO; Start 01/04 at 09:30 Diphenhydramine HCl (Benadryl) 50 mg PRN PRN IV RXN TO CHEMO, X 1 DOSE; Start 01/04/17 at 09:30 Methylnaltrexone [place] (Relistor) 12 mg Q48H SC Last administered on 13:34; Admin Dose 12 MG; Start 01/04/17 at 13:30 Famotidine (Pepcid) 20 mg BID PO Last administered on 01/15/17 09:32; Admin Dose 20 MG; Start 01/05/17 at 09:00 Polyethylene Glycol (Miralax) 17 gm DAILY PRN PO CONSTIPATION Last administered on 01/12/17 17:12; Admin Dose 17 GM; Start 01/07/17 at 10:00 Docusate Sodium (Colace) 100 mg BID PO Last administered on 01/15/17 09:32; Admin Dose 100 MG; Start 01/07/17 at 10:00 Methadone HCl (Methadone Liq) 5 mg Q8 PO Last administered on 01/10/17 20:10; Admin Dose 5 MG; Start 01/08/17 at 14:00 Hydromorphone HCl (Dilaudid) 2 mg Q2H PRN IV PAIN Last administered on 17:43; Admin Dose 2 MG; Start 01/08/17 at 11:30 Prochlorperazine (Compazine) 10 mg TID PO Last administered on 01/15/17 14:44 ; Admin Dose 10 MG; Start 01/09/17 at 15:00 ELVIN TEIXEIRA Jan 15, 2017 18:06
[2017-01-15 19:31] VITALS: BP 134/73; RESP 18
[2017-01-16] MEDS: METHADONE (1 MG/ML 5 ML PO UD SYG) PO SCH ×2 (05:38→13:38)
[2017-01-16 05:53] LABS: ADD SCAN DIFF NO
[2017-01-16 05:59] LABS: ABNORMAL IP MESSAGE 1; HEMATOCRIT 27.2 % (37.0-47.0); MEAN CORPUSCULAR HEMOGLOBIN 28.8 pg (29.0-33.0); MEAN CORPUSCULAR HGB CONC 33.1 g/dl (32.0-37.0); MEAN CORPUSCULAR VOLUME 87.2 fl (82.0-101.0); MEAN PLATELET VOLUME 9.7 fl (7.4-10.4); PLATELET COUNT 135 10^3/UL (140-415); RED BLOOD COUNT 3.12 10^6/ul (4.20-5.40); RED CELL DISTRIBUTION WIDTH 15.6 % (11.5-14.5); WHITE BLOOD COUNT 0.9 10^3/ul (4.8-10.8)
[2017-01-16 06:18] LABS: CALCIUM 8.5 mg/dl (8.4-10.2); CREATININE 0.58 mg/dl (0.44-1.00); POTASSIUM 3.7 mmol/L (3.5-5.1)
[2017-01-16 08:20] VITALS: BP 136/87; RESP 20
[2017-01-16] MEDS: FAMOTIDINE 20 MG TAB PO SCH (09:05)
[2017-01-16] MEDS: DOCUSATE SODIUM 100 MG CAP PO SCH (09:05)
[2017-01-16] MEDS: PROCHLORPERAZINE 10 MG TAB PO SCH ×2 (09:05→13:38)
[2017-01-16] MEDS: ENOXAPARIN 40 MG/0.4 ML SYG SC SCH (09:08)
--- NOTE | 2017-01-16 09:52 | CONS ---
Date/Time of Note Date/Time of Note DATE: 01/16/17 TIME: 09:49 Assessment/Plan Assessment/Plan Chief Complaint/Hosp Course 56yo female with metastatic uterine carcinosarcoma sarcoma now admitted for cycle 4 of ifex/ taxol, with worsening abdominal pain and CT scan consistent with progression of disease. - CT scan shows increased abdominopelvic lymphadenopathy and peritoneal carcinomatosis, for instance right cardiophrenic LN increased from 1.4 to 1.8, anterior aortocaval lymph node unchanged, posterior aortocaval lymph node increased from 1.2 to 1.6cm, right iliac chain sonny mass now 6.9 x 3.6 cm, previously 6.1 x 3.3 cm, and RP LAD more confluent, with extensive presacral thickening and numerous enhancing confluent nodules throughout the peritoneum and increased since prior. Trace ascites. - Plan was for a total of 4 cycles of ifosfamide/taxol followd by 4 cycles of carbo/taxol per discussion with Dr. Bueno. Given worsening abdominal pain and scan consistent with progression of disease, carbo/taxol was started on . - continue pain control recommendations per Dr. Patino. Per Dr. Patino, methadone and prn meds increased. Patient clinically doing better. continue supportive care. - Transfuse if Hgb < 7-8. s/p 2 units pRBCs 01/15/17 for Hgb 7.1, now Hgb 9.0. - Monitor ANC, patient approaching dax count 7-10 days after chemotherapy, no need for antibiotics unless patient develops neutropenic fever. Ok to discharge home with strict neutropenic precautions to return if patient has fevers/chills or otherwise feels unwell. - Patient will follow-up with me in clinic later this week or early next week. - Case management to set up PICC care and twice weekly labs Mon/Th - Dr. Patino will provide methadone Rx for discharge Problems: Consultation Date/Type/Reason Admit Date/Time Jan 03, 2017 at 10:17 Initial Consult Date 01/03/17 Type of Consultation: Oncology Referring Provider: ARLENE CHOWDARY MD 24 HR Interval Summary Free Text/Dictation Patient doing well, denies pain or nausea/vomiting. Anxious to go home. Exam/Review of Systems Vital Signs Vitals Vital Signs Date Time Temp Pulse Resp B/P Pulse Ox O2 Delivery O2 Flow Rate FiO2 01/16/17 08:20 98.3 68 20 136/87 97 01/15/17 02:00 Room Air Intake and Output 01/15/17 01/15/17 01/16/17 15:00 23:00 07:00 Intake Total 700 ml 500 ml Balance 700 ml 500 ml Exam Constitutional: alert, oriented Psych: nl mood/affect Eyes: nl conjunctiva Neck: supple Respiratory: normal air movement Results Result Diagram: 01/16/17 0436 01/16/17 0436 Results 24 hrs Laboratory Tests Test 01/16/17 04:36 01/16/17 05:40 White Blood Count 0.9 L Red Blood Count 3.12 #L Hemoglobin 9.0 #L Hematocrit 27.2 #L Mean Corpuscular Volume 87.2 Mean Corpuscular Hemoglobin 28.8 L Mean Corpuscular Hemoglobin Concent 33.1 Red Cell Distribution Width 15.6 H Platelet Count 135 L Mean Platelet Volume 9.7 Neutrophils % Lymphocytes % Monocytes % Eosinophils % Basophils % Neutrophils # Lymphocytes # Monocytes # Eosinophils # Basophils # Sodium Level 143 Potassium Level 3.7 Chloride Level 102 Carbon Dioxide Level 33 H Anion Gap 12 Blood Urea Nitrogen 10 Creatinine 0.58 Glucose Level 84 Calcium Level 8.5 Lab Scanned Report BLOOD TRANSFUSION Medications Medications Current Medications Ondansetron HCl (Zofran Inj) 4 mg Q6H PRN IV NAUSEA AND/OR VOMITING Last administered on 01/09/17 13:57; Admin Dose 4 MG; Start 01/03/17 at 12:00 Enoxaparin Sodium (Lovenox) 40 mg DAILY SC Last administered on 01/16/17 09:08 ; Admin Dose 40 MG; Start 01/04/17 at 09:00 Zolpidem Tartrate (Ambien) 5 mg HS PRN PO INSOMNIA; Start 01/03/17 at 12:00 Ondansetron HCl (Zofran Tab) 8 mg Q8H PRN PO NAUSEA AND/OR VOMITING; Start 01/04 at 09:30 Metoclopramide HCl (Reglan) 10 mg Q8H PRN PO NAUSEA AND/OR VOMITING Last administered on 01/09/17 18:00; Admin Dose 10 MG; Start 01/04/17 at 09:30 Hydrocortisone (Solu-Cortef) 100 mg PRN PRN IV X 1 FOR RXN TO CHEMO; Start 01/04 at 09:30 Diphenhydramine HCl (Benadryl) 50 mg PRN PRN IV RXN TO CHEMO, X 1 DOSE; Start 01/04/17 at 09:30 Methylnaltrexone [place] (Relistor) 12 mg Q48H SC Last administered on 13:34; Admin Dose 12 MG; Start 01/04/17 at 13:30 Famotidine (Pepcid) 20 mg BID PO Last administered on 01/16/17 09:05; Admin Dose 20 MG; Start 01/05/17 at 09:00 Polyethylene Glycol (Miralax) 17 gm DAILY PRN PO CONSTIPATION Last administered on 01/12/17 17:12; Admin Dose 17 GM; Start 01/07/17 at 10:00 Docusate Sodium (Colace) 100 mg BID PO Last administered on 01/16/17 09:05; Admin Dose 100 MG; Start 01/07/17 at 10:00 Methadone HCl (Methadone Liq) 5 mg Q8 PO Last administered on 01/10/17 20:10; Admin Dose 5 MG; Start 01/08/17 at 14:00 Hydromorphone HCl (Dilaudid) 2 mg Q2H PRN IV PAIN Last administered on 17:43; Admin Dose 2 MG; Start 01/08/17 at 11:30 Prochlorperazine (Compazine) 10 mg TID PO Last administered on 01/16/17 09:05 ; Admin Dose 10 MG; Start 01/09/17 at 15:00 LINDA SWANSON MD Jan 16, 2017 09:51
[2017-01-16 09:53] LABS: LYMPHOCYTES # 0.4 10^3/ul (0.8-2.9); MONOCYTE # 0.1 10^3/ul (0.3-0.9); NEUTROPHIL # 0.4 10^3/ul (1.6-7.5)
[2017-01-16] MEDS ORDERED: HEPARIN (100 UNITS/ML) 5 ML SYG CATHETER ONE (13:00)
[2017-01-16] MEDS: METHYLNALTREXONE 12 MG/0.6 ML VIAL SC SCH (13:38)
[2017-01-16] MEDS ORDERED: DOCU-216 PO (13:59)
[2017-01-16] MEDS ORDERED: METH5SOL3 PO (13:59)
[2017-01-16] MEDS ORDERED: ONDA-43 PO (13:59)
--- NOTE | 2017-01-16 19:19 | DS ---
Date/Time of Note Date/Time of Note DATE: 01/16/17 TIME: 19:13 Discharge Summary Admission/Discharge Info Admit Date/Time Jan 03, 2017 at 10:17 Discharge Date/Time Jan 16, 2017 at 15:45 Patient Condition: Stable Hx of Present Illness The patient is a 56-year-old female known to me from previous admission. Patient got admitted for her chemotherapy. During admission, patient has c/o abdominal pain as well. Patient seen by Dr Hoang and CT abdomen/pelvis ordered. Patient has past history of stage IV endometrial carcinoma, status post total abdominal hysterectomy and bilateral salpingo-oophorectomy and rectosigmoid with low anastomosis by Dr. Bueno in September 2016. The patient follows with Dr. Logan in oncology consultation. The patient received chemotherapy on last admission as well. Patient is admitted under Dr Richardson for chemotherapy. Durng assessment, patient denies any chest pain, shortness of breath, fever, chills, nausea/ vomitting. Plan of care dw staff/patient. Hospital Course - Hyponatremia, resolved. - Metastatic uterine carcinosarcoma, admitted for cycle 4 of ifex/ taxol, however now presenting with worsening abdominal pain and CT scan consistent with progression of disease. S/p carbo/taxol on 01/04. Dr. Hoang is following in oncology consultation. - Status post total abdominal hysterectomy and bilateral salpingo-oophorectomy and rectosigmoid anastomosis in September [address] Bueno. - Gastritis by history, continue Pepcid. - Constipation, resolved. -Pancytopenia secondary to chemotherapy, continue neutropenic precaution, patient received blood cells transfusion for low hemoglobin. Postchemotherapy patient experienced some nausea and worsening abdominal pain and was evaluated by Dr. Jose in pain management consultation. Patient was started on methadone and multiple antiemetics. Patient condition improved she was able to tolerate diet, better pain controlled. Patient will be discharged home with home health care services for biweekly labs CBC and BMP. Patient has a right chest permanent permacath. Home Meds Active Scripts Methadone Hcl* (Methadone*) 5 Mg/5 Ml Solution, 5 MG PO Q8 for 14 Days Prov:ELVIN TEIXEIRA 01/16/17 Ondansetron Hcl* (Zofran*) 4 Mg Tab, 4 MG PO Q6H Y for NAUSEA AND OR VOMITING, # 30 TAB Prov:ELVIN TEIXEIRA 01/16/17 Docusate Sodium (Dok) 100 Mg Capsule, 100 MG PO BID for 30 Days, CAP Prov:ELVIN TEIXEIRA 01/16/17 Omeprazole* (Omeprazole*) 20 Mg Capsule.dr, 20 MG PO DAILY for 30 Days, #30 CAP Prov:ELVIN TEIXEIRA 12/17/16 Discontinued Scripts Hydrocodone/Acetaminophen ([place] 5-325 Tablet) 1 Each Tablet, 1 EACH PO Q8 Y for PAIN, #20 TAB Prov:ELVIN TEIXEIRA 12/17/16 Follow-up Plan Follow-up with Dr. Hoang on Saturday or early next week. Primary Care Provider Ger Richardson MD Pending Labs Laboratory Tests Test 01/16/17 04:36 01/16/17 05:40 White Blood Count 0.910^3/ul (4.8-10.8) Red Blood Count 3.1210^6/ul (4.20-5.40) Hemoglobin 9.0g/dl (12.0-16.0) Hematocrit 27.2% (37.0-47.0) Mean Corpuscular Volume 87.2fl (82.0-101.0) Mean Corpuscular Hemoglobin 28.8pg (29.0-33.0) Mean Corpuscular Hemoglobin Concent 33.1g/dl (32.0-37.0) Red Cell Distribution Width 15.6% (11.5-14.5) Platelet Count 34193^3/UL (140-415) Mean Platelet Volume 9.7fl (7.4-10.4) Neutrophils % 47.0% (39.0-77.0) Lymphocytes % 42.0% (15.0-51.0) Reactive Lymphocytes % 1.0% (0.0) Monocytes % 9.0% (0.0-11.0) Eosinophils % % (0.0-7.0) Basophils % 1.0% (0.0-2.0) Neutrophils # 0.410^3/ul (1.6-7.5) Lymphocytes # 0.410^3/ul (0.8-2.9) Monocytes # 0.110^3/ul (0.3-0.9) Eosinophils # 10^3/ul (0.0-0.5) Basophils # 0.010^3/ul (0.0-0.1) Sodium Level 143mmol/L (135-144) Potassium Level 3.7mmol/L (3.5-5.1) Chloride Level 102mmol/L (97-110) Carbon Dioxide Level 33mmol/L (21-31) Anion Gap 12 (8-16) Blood Urea Nitrogen 10mg/dl (7-20) Creatinine 0.58mg/dl (0.44-1.00) Glucose Level 84mg/dl (70-220) Calcium Level 8.5mg/dl (8.4-10.2) Lab Scanned Report BLOOD [id number] ELVIN TEIXEIRA Jan 16, 2017 19:19
== END 2017-01-16 15:45 | disposition home health service (06) | DRG 846 ==
LOC: MS1 10:17
PROVIDERS: ADMIT Internal Medicine; ATTEND Internal Medicine
PROC: 3E04305 Introduction of Other Antineoplastic into Central Vein, Percutaneous Approach (ICD-10-PCS; principal; 2017-01-04)
PROC: 30233N1 Transfusion of Nonautologous Red Blood Cells into Peripheral Vein, Percutaneous Approach (ICD-10-PCS; 2017-01-15)
DX: Z51.11 Encounter for antineoplastic chemotherapy (principal); D61.810 Antineoplastic chemotherapy induced pancytopenia; N17.9 Acute kidney failure, unspecified; C78.6 Secondary malignant neoplasm of retroperitoneum and peritoneum; R18.8 Other ascites; E87.1 Hypo-osmolality and hyponatremia; C54.1 Malignant neoplasm of endometrium; R59.1 Generalized enlarged lymph nodes; R10.13 Epigastric pain; K59.00 Constipation, unspecified; T45.1X5A Adverse effect of antineoplastic and immunosuppressive drugs, initial encounter
CPT/HCPCS: 36430; 71260; 74177; 80048; 80053; 81001; 81003; 82533; 83935; 84300; 84443; 84560; 85025; 86850; 86900; 86901; 86920; 86945; 87081; J9045; J9267; J1100; J1170; J1200; J1642; J1650; J2270; J2405; J7030; J7040; J7050; J7060; P9016; Q9967

== ENCOUNTER 2017-01-29 10:20 | Emergency (ER) | payer SELFPAY ==
[~2017-01-29] VITALS: Ht 162.6 cm; Wt 68.0 kg
[~2017-01-29 10:20] MED LIST changes: +DOCU-216 PO; -HYDR-906 PO; +METH5SOL3 PO; +ONDA-43 PO
[2017-01-29 10:23] VITALS: Ht 162.6 cm; Wt 68.0 kg
== END 2017-01-29 16:08 | disposition left against medical advice (07) ==
LOC: E/R 10:20
DX: Z53.21 Procedure and treatment not carried out due to patient leaving prior to being seen by health care provider (principal)